=== PATIENT | male | born 1940 | race Caucasian/White ===

== ENCOUNTER → 2017-05-11 12:48 | Outpatient (CLI) | payer MEDICARE, OTHER, SELFPAY ==
[2016-10-05 13:30] VITALS: BMI 26.1
--- NOTE | 2017-05-12 14:46 | PFTCOMP ---
COMPLETE PULMONARY FUNCTION TEST INTERPRETATION Brief HPI: Patient is a 77 year old male, currently under the care of Dr. Loera, who presents to [facility] for complete pulmonary function tests secondary to diagnosis of cough. Respiratory therapist reports good effort and reproducible results. Interpretation: Forced expiration spirometry shows a moderate large airways obstructive ventilatory defect with an FEV1 of 68 % predicted. There is a significant bronchodilator response in FVC by ATS criteria. Spirograms are of good quality and plateau slowly, indicating slowly emptying areas of the lungs. The respiratory flow volume loop shows decreased expiratory flow rates at all lung volumes consistent with airway obstruction. Lung volumes by body plethysmography show an elevated total lung capacity at 7.34 L, 124 % predicted. FRC and RV are elevated out of proportion. Lung volume measurements are consistent with hyperinflation and air-trapping. Diffusion capacity by carbon monoxide is normal at 73 % predicted. The airway resistance is elevated. No previous pulmonary function tests were available for review. Impression: Partially reversible moderate large airways obstructive ventilatory defect resulting in air trapping with hyperinflation.
== END ==
PROVIDERS: Family Provider Family Medicine Geriatric Medicine; PCP Family Medicine Geriatric Medicine; Visit Provider Internal Medicine Critical Care Medicine
DX: R05 Cough (principal)
CPT/HCPCS: 94060; 94726; 94729

== ENCOUNTER → 2017-06-09 08:34 | Outpatient (CLI) | payer MEDICARE, OTHER, SELFPAY ==
[2016-10-05 13:30] VITALS: BMI 26.1
[2017-06-09 10:24] LABS: AST(SGOT) 18 U/L (15-37); Alanine Aminotransfer ALT/SGPT 16 U/L (16-61); Albumin, Serum 3.6 g/dL (3.2-5.0); Alkaline Phosphatase 62 U/L (45-117); Bilirubin, Direct 0.31 mg/dL (0.00-0.30); Cholesterol 84 mg/dL (200); Globulin 3.6 g/dL (2.2-4.2); High Density Lipoprotein 47 mg/dL; Protein, Total 7.2 g/dL (6.4-8.2); Triglycerides 88 mg/dL; Very Low Density Lipoprotein 18 mg/dL (5-40)
== END ==
PROVIDERS: Family Provider Family Medicine Geriatric Medicine; PCP Family Medicine Geriatric Medicine; Visit Provider Internal Medicine Cardiovascular Disease
DX: E78.5 Hyperlipidemia, unspecified (principal); Z79.899 Other long term (current) drug therapy
CPT/HCPCS: 36415; 80061; 80076

== ENCOUNTER → 2017-06-30 12:33 | Outpatient (CLI) | payer MEDICARE, OTHER, SELFPAY ==
[2016-10-05 13:30] VITALS: BMI 26.1
--- NOTE | 2017-06-30 12:34 | STEWCON_ITS ---
Reason For Study: CAD Stress Results Protocol: Modified José Miguel Protocol Maximum Predicted HR: 141 bpm Target HR: 120 bpm% Maximum Pred icted HR: 86 % Heart Stage Duration Rate BPCom ment (mm:ss) (bpm) Definity 4 ML Diluted Given; No Chest Baseline 62 134/70 Pain Modified José Miguel Protocol Stage 0 3:00 10 0 142/76No Chest Pain Modified José Miguel Protocol Stage 1/2 3:00 11 6 156/72No Chest Pain Modified José Miguel Protocol Stage 1 1:00 12 1 / No Chest Pain Recovery 68 122/66 No Chest Pain Stress Duration: 7:00 mm:ss Maximum Stress HR: 121 bpmM ETS: 4 Baseline Echocardiogram Findings The estimated ejection fraction is 65 %. Stress Echo Wall motion Data Resting WMIntermediate WMStress WM Resting Wall Motion Wall Motion Stress No regional wall motion No regional wall motion abnormalities noted. abnormalities noted. EKG Data Normal intervals are noted. Interpretation Summary The estimated ejection fraction is 65 %. Normal adequate modified José Miguel treadmill echocardiogram. Negative for ischemia by EKG and echocardiographic criteria. No anginal symptoms noted. Rare PACs noted. Appropriate blood pressure response to exercise. Average exercise capacity for age. Test terminated due to leg discomfort. Final LVEF is 75%. Decreased sensitivity due to poor echo windows and requiring Definity contrast agent. Ordering Physician: Temo Cerna Referring Physician: Temo Cerna Performed By: Christie Ybarra RDCS
== END ==
PROVIDERS: Family Provider Family Medicine Geriatric Medicine; PCP Family Medicine Geriatric Medicine; Visit Provider Internal Medicine Cardiovascular Disease
DX: I25.10 Atherosclerotic heart disease of native coronary artery without angina pectoris (principal); Z95.5 Presence of coronary angioplasty implant and graft
CPT/HCPCS: 93017; 93350; Q9957; A4216; C8928

== ENCOUNTER → 2017-08-02 09:05 | Outpatient (CLI) | payer MEDICARE, OTHER, SELFPAY ==
[2016-10-05 13:30] VITALS: BMI 26.1
[2017-08-02 14:37] LABS: Absolute Lymphocyte Count 1.13 X10^3/ul (0.83-4.51); Absolute Neutrophil Count 3.3 X10^3/uL (2.0-7.7); Basophil# 0.03 X10^3/uL; Basophil% 0.6 % (0-1); Eosinophil# 0.18 X10^3/uL; Eosinophils% 3.4 % (0-5); Hematocrit 39.7 % (40-54); Hemoglobin 13.1 g/dl (13.0-16.5); Lymphocyte # 1.13 X10^3/ul (4.0); Lymphocyte % 21.2 % (19-41); Mean Corpuscular Hgb 30.9 pg (27.0-32.0); Mean Corpuscular Volume 93.6 fL (80-94); Mean Platelet Vol. 9.4 fl (6.2-12.0); Monocyte# 0.65 X10^3/uL; Monocyte% 12.2 % (0-10); Neutrophil # 3.33 X10^3/uL (2.7-7.7); Neutrophil % 62.2 % (47-70); Platelet Count 264 K/mm3 (150-450); RBC Distribution Width CV 13.8 % (11.6-14.6); RBC Distribution Width SD 45.3 fl (35.1-43.9); Red Blood Count 4.24 M/mm3 (4.6-6.2); White Blood Count 5.3 K/mm3 (4.4-11.0)
[2017-08-02 14:39] LABS: POSITIVE COUNT NO; POSITIVE DIFFERENTIAL NO; POSITIVE MORPHOLOGY NO
[2017-08-02 14:51] LABS: Vitamin D,25 Hydroxy 30.5 ng/mL (29.95-100.01)
[2017-08-02 14:54] LABS: AST(SGOT) 16 U/L (15-37); Alanine Aminotransfer ALT/SGPT 22 U/L (16-61); Albumin, Serum 3.5 g/dL (3.2-5.0); Alkaline Phosphatase 57 U/L (45-117); Anion Gap 7 (5-15); BUN 14 mg/dL (7-18); BUN/Creat Ratio 15.2 RATIO (10-20); Calcium,Total 8.2 mg/dL (8.5-10.1); Chloride 107 mmol/L (98-107); Creatinine, Serum 0.92 mg/dL (0.70-1.30); EST Glomerular Filtration Rate 84 mL/min (>60); Est Glom Filt Rate - Afr Amer 102 mL/min (>60); Globulin 3.4 g/dL (2.2-4.2); Glucose 103 mg/dL (74-106); Potassium 3.9 mmol/L (3.5-5.1); Protein, Total 6.9 g/dL (6.4-8.2); Sodium Level 140 mmol/L (136-145); Thyroid Stim Hormone (TSH) 0.99 uIU/mL (0.358-3.74)
== END ==
PROVIDERS: Family Provider Family Medicine Geriatric Medicine; PCP Family Medicine Geriatric Medicine; Visit Provider Family Medicine Geriatric Medicine
DX: I10 Essential (primary) hypertension (principal); E55.9 Vitamin D deficiency, unspecified
CPT/HCPCS: 36415; 80053; 82306; 84443; 85025

== ENCOUNTER → 2017-09-29 06:53 | Outpatient (CLI) | payer MEDICARE, OTHER, SELFPAY ==
[2016-10-05 13:30] VITALS: BMI 26.1
[2017-09-29 08:04] LABS: AST(SGOT) 13 U/L (15-37); Alanine Aminotransfer ALT/SGPT 14 U/L (16-61); Albumin, Serum 3.6 g/dL (3.2-5.0); Alkaline Phosphatase 58 U/L (45-117); Bilirubin, Direct 0.27 mg/dL (0.00-0.30); Cholesterol 90 mg/dL (200); Globulin 3.5 g/dL (2.2-4.2); High Density Lipoprotein 46 mg/dL; Protein, Total 7.1 g/dL (6.4-8.2); Triglycerides 84 mg/dL; Very Low Density Lipoprotein 17 mg/dL (5-40)
== END ==
PROVIDERS: Nurse Practitioner Family; Family Provider Family Medicine Geriatric Medicine; PCP Family Medicine Geriatric Medicine; Visit Provider Internal Medicine Cardiovascular Disease
DX: E78.5 Hyperlipidemia, unspecified (principal); Z79.899 Other long term (current) drug therapy
CPT/HCPCS: 36415; 80061; 80076

== ENCOUNTER → 2018-02-04 09:01 | Outpatient (CLI) | payer MEDICARE, OTHER, SELFPAY ==
[2016-10-05 13:30] VITALS: BMI 26.1
[2018-02-04 12:06] LABS: Absolute Lymphocyte Count 1.26 X10^3/ul (0.83-4.51); Absolute Neutrophil Count 3.1 X10^3/uL (2.0-7.7); Basophil# 0.03 X10^3/uL; Basophil% 0.6 % (0-1); Eosinophil# 0.33 X10^3/uL; Eosinophils% 6.1 % (0-5); Hematocrit 38.9 % (40-54); Hemoglobin 12.5 g/dl (13.0-16.5); Lymphocyte # 1.26 X10^3/ul (4.0); Lymphocyte % 23.4 % (19-41); Mean Corp Hgb Conc 32.1 g/gl (32-36); Mean Corpuscular Hgb 30.3 pg (27.0-32.0); Mean Corpuscular Volume 94.4 fL (80-94); Mean Platelet Vol. 9.4 fl (6.2-12.0); Monocyte# 0.67 X10^3/uL; Monocyte% 12.4 % (0-10); Neutrophil # 3.09 X10^3/uL (2.7-7.7); Neutrophil % 57.3 % (47-70); Platelet Count 269 K/mm3 (150-450); RBC Distribution Width CV 13.7 % (11.6-14.6); RBC Distribution Width SD 45.4 fl (35.1-43.9); Red Blood Count 4.12 M/mm3 (4.6-6.2); White Blood Count 5.4 K/mm3 (4.4-11.0)
[2018-02-04 12:16] LABS: POSITIVE COUNT NO; POSITIVE DIFFERENTIAL NO; POSITIVE MORPHOLOGY NO
[2018-02-04 12:21] LABS: Vitamin D,25 Hydroxy 26.9 ng/mL (29.95-100.01)
[2018-02-04 12:22] LABS: ALB/GLOB Ratio 0.9 RATIO (0.9-2.4); AST(SGOT) 15 U/L (15-37); Alanine Aminotransfer ALT/SGPT 19 U/L (16-61); Albumin, Serum 3.4 g/dL (3.2-5.0); Alkaline Phosphatase 60 U/L (45-117); Anion Gap 9 (5-15); BUN 18 mg/dL (7-18); BUN/Creat Ratio 18.5 RATIO (10-20); Calcium,Total 8.2 mg/dL (8.5-10.1); Chloride 107 mmol/L (98-107); Creatinine, Serum 0.97 mg/dL (0.70-1.30); EST Glomerular Filtration Rate 79 mL/min (>60); Est Glom Filt Rate - Afr Amer 96 mL/min (>60); Globulin 3.7 g/dL (2.2-4.2); Glucose 90 mg/dL (74-106); Potassium 3.9 mmol/L (3.5-5.1); Protein, Total 7.1 g/dL (6.4-8.2); Sodium Level 143 mmol/L (136-145); Thyroid Stim Hormone (TSH) 1.35 uIU/mL (0.358-3.74)
== END ==
PROVIDERS: Family Provider Family Medicine Geriatric Medicine; PCP Family Medicine Geriatric Medicine; Visit Provider Family Medicine Geriatric Medicine
DX: E23.6 Other disorders of pituitary gland (principal); R53.83 Other fatigue; E55.9 Vitamin D deficiency, unspecified
CPT/HCPCS: 36415; 80053; 82306; 84403; 84443; 85025

== ENCOUNTER → 2018-07-22 09:53 | Outpatient (CLI) | payer MEDICARE, OTHER, SELFPAY ==
[2016-10-05 13:30] VITALS: BMI 26.1
[2018-07-18 13:11] VITALS: BMI 25.7
--- NOTE | 2018-07-22 09:56 | US_ITS ---
STUDY: ABDOMINAL ULTRASOUND - RIGHT UPPER QUADRANT REASON FOR VISIT: Male, 78 years old. Abdominal pain TECHNIQUE: Ultrasound evaluation of the right upper quadrant was performed with real-time and static pak-scale imaging. TECHNICAL QUALITY: Adequate. COMPARISON: None. FINDINGS: Liver: The liver measures 15.8 cm. There is normal echogenicity of the liver. The bile ducts are within normal limits. There is hepatic color flow. The direction of portal flow is hepatopetal. There is no demonstrated mass lesion. Gallbladder: Normal distended gallbladder. The gallbladder wall measures 3 mm. There is a negative sonographic Schaefer's sign. There is no pericholecystic fluid. There are no gallstones. Common Bile Duct (C.B.D.): The common bile duct measures 4 mm. Pancreas: There is nonvisualization of the pancreas. Right Kidney: Normal size of the right kidney. The right kidney measures 10.5 cm. Normal renal cortex. There is a 1.6 cm simple cyst in the upper pole of the right kidney. There is no right hydronephrosis. US/Gallbladder IMPRESSION: Simple cyst in the right kidney. Otherwise, unremarkable abdominal ultrasound. Electronically Signed: Matthew Jimenez, at 22:22 EDT Tel , Service support ,
== END ==
PROVIDERS: Family Provider Family Medicine Geriatric Medicine; PCP Family Medicine Geriatric Medicine; Referring Provider Internal Medicine Cardiovascular Disease; Visit Provider Internal Medicine Cardiovascular Disease
DX: R10.13 Epigastric pain (principal); R14.2 Eructation
CPT/HCPCS: 76705

== ENCOUNTER → 2018-08-04 09:50 | Outpatient (CLI) | payer MEDICARE, OTHER, SELFPAY ==
[2016-10-05 13:30] VITALS: BMI 26.1
[2018-07-18 13:11] VITALS: BMI 25.7
--- NOTE | 2018-08-04 09:51 | STEWCON_ITS ---
Reason For Study: CAD/ASHD Stress Results Protocol: José Miguel Protocol WITH DEFINITY Maximum Predicted HR: 140 bpm Target HR: 119 bpm % Maximum Predicted HR: 86 % DurationHeart Rate Stage (mm:ss) (bpm) BP Comment BASELINE 65 140/801.5 CC DEFINITY STAGE 1 3:00 121 160/701CC DEFINITY, No chest pain, increased SOB and fatigue RECOVERY 70 130/70 Stress Duration: 3:00 mm:ss Maximum Stress HR: 121 bpm Baseline Echocardiogram Findings The estimated ejection fraction is 65 %. Stress Echo Wall motion Data Resting WM Intermediate WM Stress WM Resting Wall Motion Wall Motion Stress No regional wall motion No regional wall motion abnormalities noted. abnormalities noted. EKG Data The baseline ECG displays normal sinus rhythm. The patient exercised according to the regular José Miguel protocol for a total duration of 3:00. The maximum heart rate attained was 126 beats per minute. This was 90% of maximum predicted heart rate. The patient exercised into stage 2 of the José Miguel protocol. During stress, there were no ST or T wave changes noted to suggest ischemia. No clinical angina was noted. Interpretation Summary The estimated ejection fraction is 65 %. Normal, adequate, treadmill echocardiogram. Negative for ischemia by EKG and echocardiographic criteria. No anginal symptoms noted. Rare PACs noted. Appropriate blood pressure response to exercise. Final LVEF is 75%. Below average exercise capacity for age. Test terminated due to attainment target heart rate, fatigue and dyspnea. Patient had no evidence of anterior wall ischemia by echocardiogram. Decreased sensitivity due to poor echo windows requiring Definity agent. Final LVEF is 75%. No complications. The study was technically difficult. Contrast injection was performed. Ordering Physician: Temo Cerna MD Referring Physician: Temo Cerna Performed By: Leatha Roberts, RDCS, RVT
== END ==
PROVIDERS: Family Provider Family Medicine Geriatric Medicine; PCP Family Medicine Geriatric Medicine; Referring Provider Internal Medicine Cardiovascular Disease; Visit Provider Internal Medicine Cardiovascular Disease
DX: I25.10 Atherosclerotic heart disease of native coronary artery without angina pectoris (principal); I21.4 Non-ST elevation (NSTEMI) myocardial infarction; E78.5 Hyperlipidemia, unspecified; R07.9 Chest pain, unspecified
CPT/HCPCS: 93017; 93350; Q9957; A4216; C8928

== ENCOUNTER → 2018-08-17 08:36 | Outpatient (CLI) | payer MEDICARE, OTHER, SELFPAY ==
[2016-10-05 13:30] VITALS: BMI 26.1
[2018-07-18 13:11] VITALS: BMI 25.7
[2018-08-17 09:16] LABS: Basophil# 0.02 X10^3/uL; Basophil% 0.4 % (0-1); Eosinophil# 0.37 X10^3/uL; Eosinophils% 7.1 % (0-5); Hematocrit 37.6 % (40-54); Hemoglobin 12.4 g/dl (13.0-16.5); Lymphocyte % 24.9 % (19-41); Mean Corpuscular Hgb 30.2 pg (27.0-32.0); Mean Corpuscular Volume 91.5 fL (80-94); Mean Platelet Vol. 8.8 fl (6.2-12.0); Monocyte# 0.53 X10^3/uL; Monocyte% 10.1 % (0-10); Neutrophil % 57.3 % (47-70); Platelet Count 270 K/mm3 (150-450); RBC Distribution Width CV 13.5 % (11.6-14.6); RBC Distribution Width SD 44.7 fl (35.1-43.9); Red Blood Count 4.11 M/mm3 (4.6-6.2); White Blood Count 5.2 K/mm3 (4.4-11.0)
[2018-08-17 09:19] LABS: POSITIVE COUNT NO; POSITIVE DIFFERENTIAL NO; POSITIVE MORPHOLOGY NO
[2018-08-17 09:46] LABS: Vitamin D,25 Hydroxy 29.3 ng/mL (29.95-100.01)
[2018-08-17 09:47] LABS: ALB/GLOB Ratio 0.9 RATIO (0.9-2.4); AST(SGOT) 15 U/L (15-37); Alanine Aminotransfer ALT/SGPT 15 U/L (16-61); Albumin, Serum 3.3 g/dL (3.2-5.0); Alkaline Phosphatase 64 U/L (45-117); Anion Gap 6 (5-15); BUN 16 mg/dL (7-18); Calcium,Total 8.3 mg/dL (8.5-10.1); Chloride 108 mmol/L (98-107); Creatinine, Serum 1.07 mg/dL (0.70-1.30); EST Glomerular Filtration Rate 71 mL/min (>60); Est Glom Filt Rate - Afr Amer 86 mL/min (>60); Globulin 3.6 g/dL (2.2-4.2); Glucose 119 mg/dL (74-106); Potassium 3.8 mmol/L (3.5-5.1); Protein, Total 6.9 g/dL (6.4-8.2); Sodium Level 143 mmol/L (136-145); Thyroid Stim Hormone (TSH) 1.16 uIU/mL (0.358-3.74)
== END ==
PROVIDERS: Family Provider Family Medicine Geriatric Medicine; PCP Family Medicine Geriatric Medicine; Referring Provider Family Medicine Geriatric Medicine; Visit Provider Family Medicine Geriatric Medicine
DX: E55.9 Vitamin D deficiency, unspecified (principal); I10 Essential (primary) hypertension
CPT/HCPCS: 36415; 80053; 82306; 84443; 85025

== ENCOUNTER → 2019-02-14 11:07 | Outpatient (CLI) | payer MEDICARE, OTHER, SELFPAY ==
[2016-10-05 13:30] VITALS: BMI 26.1
[2018-11-03 08:51] VITALS: BMI 25.7
[2019-02-14 12:25] LABS: Absolute Lymphocyte Count 1.06 X10^3/uL (0.83-4.51); Absolute Neutrophil Count 3.2 X10^3/uL (2.0-7.7); Basophil# 0.05 X10^3/uL; Basophil% 0.9 % (0-1); Eosinophil# 0.26 X10^3/uL; Eosinophils% 4.8 % (0-5); Hematocrit 39.1 % (40-54); Hemoglobin 12.4 g/dL (13.0-16.5); Lymphocyte # 1.06 X10^3/ul (4.0); Lymphocyte % 19.7 % (19-41); Mean Corp Hgb Conc 31.7 g/dL (32-36); Mean Corpuscular Hgb 29.1 pg (27.0-32.0); Mean Corpuscular Volume 91.8 fL (80-94); Mean Platelet Vol. 9.1 fl (6.2-12.0); Monocyte% 14.8 % (0-10); NRBC Flagged by Analyzer 0 % (0-5); Neutrophil # 3.21 X10^3/uL (2.7-7.7); Neutrophil % 59.6 % (47-70); Platelet Count 302 K/mm3 (150-450); RBC Distribution Width SD 47.5 fl (35.1-43.9); Red Blood Count 4.26 M/mm3 (4.6-6.2); White Blood Count 5.4 K/mm3 (4.4-11.0)
[2019-02-14 12:48] LABS: Vitamin D,25 Hydroxy 28.2 ng/mL (29.95-100.01)
[2019-02-14 13:14] LABS: AST(SGOT) 18 U/L (15-37); Alanine Aminotransfer ALT/SGPT 19 U/L (16-61); Albumin, Serum 3.5 g/dL (3.2-5.0); Alkaline Phosphatase 57 U/L (45-117); Anion Gap 7 (5-15); BUN 15 mg/dL (7-18); BUN/Creat Ratio 14.9 RATIO (10-20); Calcium,Total 8.8 mg/dL (8.5-10.1); Chloride 105 mmol/L (98-107); Creatinine, Serum 1.01 mg/dL (0.70-1.30); EST Glomerular Filtration Rate 75 mL/min (>60); Est Glom Filt Rate - Afr Amer 91 mL/min (>60); Globulin 3.6 g/dL (2.2-4.2); Glucose 95 mg/dL (74-106); Potassium 3.8 mmol/L (3.5-5.1); Protein, Total 7.1 g/dL (6.4-8.2); Sodium Level 139 mmol/L (136-145); Thyroid Stim Hormone (TSH) 1.24 uIU/mL (0.358-3.74)
== END ==
PROVIDERS: Family Provider Family Medicine Geriatric Medicine; PCP Family Medicine Geriatric Medicine; Visit Provider Family Medicine Geriatric Medicine
DX: I10 Essential (primary) hypertension (principal); E55.9 Vitamin D deficiency, unspecified
CPT/HCPCS: 36415; 80053; 82306; 84443; 85025

== ENCOUNTER → 2019-05-23 14:17 | Outpatient (CLI) | payer MEDICARE, OTHER, SELFPAY ==
[2016-10-05 13:30] VITALS: BMI 26.1
[2019-03-02 09:16] VITALS: BMI 25.8
[2019-05-23 17:41] LABS: Hematocrit 41.2 % (40-54); Hemoglobin 13.4 g/dL (13.0-16.5); Mean Corp Hgb Conc 32.5 g/dL (32-36); Mean Corpuscular Hgb 29.3 pg (27.0-32.0); Mean Corpuscular Volume 90.2 fL (80-94); Mean Platelet Vol. 9.1 fl (6.2-12.0); Platelet Count 252 K/mm3 (150-450); RBC Distribution Width CV 14.3 % (11.6-14.6); RBC Distribution Width SD 46.9 fl (35.1-43.9); Red Blood Count 4.57 M/mm3 (4.6-6.2); White Blood Count 6.6 K/mm3 (4.4-11.0)
[2019-05-23 17:49] LABS: Erythrocyte Sedimentation Rate 18 mm/hr (0-20)
[2019-05-23 17:58] LABS: CRP < 2.90 mg/L (0.0-3.0)
== END ==
PROVIDERS: PCP Family Medicine Geriatric Medicine; Referring Provider Internal Medicine Gastroenterology; Visit Provider Internal Medicine Gastroenterology
DX: K51.90 Ulcerative colitis, unspecified, without complications (principal)
CPT/HCPCS: 36415; 85027; 85652; 86140

== ENCOUNTER → 2019-08-11 10:33 | Outpatient (CLI) | payer MEDICARE, OTHER, SELFPAY ==
[2016-10-05 13:30] VITALS: BMI 26.1
[2019-07-11 08:48] VITALS: BMI 25.8
--- NOTE | 2019-08-11 10:56 | RAD_ITS ---
STUDY: X-RAY - ABDOMEN/PELVIS REASON FOR EXAM: Male, 79 years old. DIARRHEA x1 WEEK TECHNIQUE: DIARRHEA x1 WEEK COMPARISON: None. FINDINGS: Normal visualized lung bases. There is an unremarkable bowel gas pattern. There is no demonstrated free abdominal air. The visualized liver, spleen and kidneys are grossly normal in size and morphology. Normal soft tissue structures. There are diffuse degenerative changes of the visualized lumbar spine. RAD/Abd Inc Decub and/or Erect IMPRESSION: Normal x-ray examination of the abdomen and pelvis. Electronically Signed: Nahed Jimenez, at 11:18 EDT Tel , Service support ,
[2019-08-11 12:30] LABS: Absolute Lymphocyte Count 1.31 X10^3/uL (0.83-4.51); Absolute Neutrophil Count 2.3 X10^3/uL (2.0-7.7); Basophil# 0.05 X10^3/uL; Basophil% 1.1 % (0-1); Eosinophil# 0.32 X10^3/uL; Hemoglobin 12.5 g/dL (13.0-16.5); Lymphocyte # 1.31 X10^3/ul (4.0); Lymphocyte % 28.6 % (19-41); Mean Corp Hgb Conc 32.1 g/dL (32-36); Mean Corpuscular Hgb 29.3 pg (27.0-32.0); Mean Corpuscular Volume 91.5 fL (80-94); Mean Platelet Vol. 9.1 fl (6.2-12.0); Monocyte% 13.1 % (0-10); NRBC Flagged by Analyzer 0 % (0-5); Neutrophil # 2.28 X10^3/uL (2.7-7.7); Neutrophil % 49.8 % (47-70); Platelet Count 302 K/mm3 (150-450); RBC Distribution Width CV 13.2 % (11.6-14.6); RBC Distribution Width SD 43.8 fl (35.1-43.9); Red Blood Count 4.26 M/mm3 (4.6-6.2); White Blood Count 4.6 K/mm3 (4.4-11.0)
[2019-08-11 12:40] LABS: Anion Gap 6 (5-15); BUN 14 mg/dL (7-18); BUN/Creat Ratio 13.1 RATIO (10-20); Calcium,Total 8.7 mg/dL (8.5-10.1); Chloride 108 mmol/L (98-107); Creatinine, Serum 1.07 mg/dL (0.70-1.30); EST Glomerular Filtration Rate 71 mL/min (>60); Est Glom Filt Rate - Afr Amer 85 mL/min (>60); Glucose 102 mg/dL (74-106); Potassium 3.8 mmol/L (3.5-5.1); Sodium Level 140 mmol/L (136-145)
== END ==
PROVIDERS: PCP Family Medicine Geriatric Medicine; Referring Provider Family Medicine Geriatric Medicine; Visit Provider Family Medicine Geriatric Medicine
DX: R10.9 Unspecified abdominal pain (principal)
CPT/HCPCS: 36415; 74019; 80048; 85025

== ENCOUNTER → 2019-08-17 09:56 | Outpatient (CLI) | payer MEDICARE, OTHER, SELFPAY ==
[2016-10-05 13:30] VITALS: BMI 26.1
[2019-07-11 08:48] VITALS: BMI 25.8
[2019-08-17 12:46] LABS: Absolute Lymphocyte Count 1.77 X10^3/uL (0.83-4.51); Absolute Neutrophil Count 7.8 X10^3/uL (2.0-7.7); Basophil# 0.04 X10^3/uL; Basophil% 0.4 % (0-1); Eosinophil# 0.04 X10^3/uL; Eosinophils% 0.4 % (0-5); Hematocrit 38.2 % (40-54); Hemoglobin 12.4 g/dL (13.0-16.5); Lymphocyte # 1.77 X10^3/ul (4.0); Lymphocyte % 16.1 % (19-41); Mean Corp Hgb Conc 32.5 g/dL (32-36); Mean Corpuscular Hgb 29.5 pg (27.0-32.0); Mean Corpuscular Volume 90.7 fL (80-94); Mean Platelet Vol. 9.2 fl (6.2-12.0); Monocyte# 1.17 X10^3/uL; Monocyte% 10.7 % (0-10); NRBC Flagged by Analyzer 0 % (0-5); Neutrophil # 7.79 X10^3/uL (2.7-7.7); Neutrophil % 70.9 % (47-70); Platelet Count 396 K/mm3 (150-450); RBC Distribution Width CV 13.2 % (11.6-14.6); Red Blood Count 4.21 M/mm3 (4.6-6.2)
[2019-08-17 13:00] LABS: Vitamin D,25 Hydroxy 27.6 ng/mL
[2019-08-17 13:11] LABS: ALB/GLOB Ratio 0.9 RATIO (0.9-2.4); AST(SGOT) 9 U/L (15-37); Alanine Aminotransfer ALT/SGPT 23 U/L (16-61); Albumin, Serum 3.4 g/dL (3.2-5.0); Alkaline Phosphatase 58 U/L (45-117); Anion Gap 9 (5-15); BUN 21 mg/dL (7-18); BUN/Creat Ratio 20.4 RATIO (10-20); Calcium,Total 8.8 mg/dL (8.5-10.1); Chloride 107 mmol/L (98-107); Creatinine, Serum 1.03 mg/dL (0.70-1.30); EST Glomerular Filtration Rate 74 mL/min (>60); Est Glom Filt Rate - Afr Amer 89 mL/min (>60); Globulin 3.8 g/dL (2.2-4.2); Glucose 120 mg/dL (74-106); Potassium 3.6 mmol/L (3.5-5.1); Protein, Total 7.2 g/dL (6.4-8.2); Sodium Level 138 mmol/L (136-145); Thyroid Stim Hormone (TSH) 0.89 uIU/mL (0.358-3.74)
== END ==
PROVIDERS: PCP Family Medicine Geriatric Medicine; Visit Provider Family Medicine Geriatric Medicine
DX: E55.9 Vitamin D deficiency, unspecified (principal); I10 Essential (primary) hypertension; E23.6 Other disorders of pituitary gland
CPT/HCPCS: 36415; 80053; 82306; 84403; 84443; 85025

== ENCOUNTER → 2020-02-12 06:03 | Outpatient (CLI) | payer MEDICARE, OTHER, SELFPAY ==
[2016-10-05 13:30] VITALS: BMI 26.1
[2020-01-26 11:39] VITALS: BMI 26.9
--- NOTE | 2020-02-12 09:27 | STRESSREP_ITS ---
Stress Test Report Pharmacologic myocardial perfusion stress test. 79-year-old man with a history of coronary artery disease nonobstructive. Stress protocol: Resting EKG demonstrates sinus rhythm with a rate of 67 bpm normal intervals are noted resting blood pressure is 128/62 mmHg. 0.4 mg of regadenoson was infused per usual protocol followed by rapid intravenous saline flush injection continuous EKG monitoring was performed. The maximum heart rate attained 106 bpm which was 76% of max impacted heart rate the maximum workload was 1 metabolic equivalent. At rest there were no ST or T wave changes noted to suggest abnormal flow reserve at peak infusion nonspecific ST-T wave changes were noted with no meet the criteria for ischemia. No clinical angina was noted. Myocardial perfusion protocol. 11.8 mCi of technetium 99m sestamibi was injected at rest. 0.4 mg of regadenoson was infused per usual protocol at peak infusion 33.1 mCi of techneti um 99m sestamibi was injected stress images were obtained stress and rest images were reconstructed and compared in the short axis vertical long horizontal long axis. Gated images were also obtained for Perfusion SPECT analysis: Review of the stress images demonstrate normal uptake of tracer noted in all areas of the myocardium the resting images similarly demonstrate normal uptake of tracer noted in all areas of the myocardium. No reversibility is noted suggest ischemia no previous infarct is noted. Gated SPECT analysis: The gated ejection fraction is 77%. Conclusion: Normal pharmacologic myocardial perfusion stress test. Preserved ejection fraction.
== END ==
PROVIDERS: PCP Family Medicine Geriatric Medicine; Referring Provider Internal Medicine Cardiovascular Disease; Visit Provider Internal Medicine Cardiovascular Disease
DX: I25.10 Atherosclerotic heart disease of native coronary artery without angina pectoris (principal); Z95.5 Presence of coronary angioplasty implant and graft
CPT/HCPCS: 78452; 93017; A9500; A4216; J2785

== ENCOUNTER → 2020-02-22 09:22 | Outpatient (CLI) | payer MEDICARE, OTHER, SELFPAY ==
[2016-10-05 13:30] VITALS: BMI 26.1
[2020-01-26 11:39] VITALS: BMI 26.9
[2020-02-22 12:44] LABS: Absolute Lymphocyte Count 1.22 X10^3/uL (0.83-4.51); Absolute Neutrophil Count 3.7 X10^3/uL (2.0-7.7); Basophil# 0.04 X10^3/uL; Basophil% 0.7 % (0-1); Eosinophil# 0.39 X10^3/uL; Eosinophils% 6.4 % (0-5); Hematocrit 38.8 % (40-54); Hemoglobin 12.5 g/dL (13.0-16.5); Lymphocyte # 1.22 X10^3/ul (4.0); Lymphocyte % 20.1 % (19-41); Mean Corp Hgb Conc 32.2 g/dL (32-36); Mean Corpuscular Hgb 29.6 pg (27.0-32.0); Mean Corpuscular Volume 91.9 fL (80-94); Mean Platelet Vol. 9.2 fl (6.2-12.0); Monocyte% 11.5 % (0-10); NRBC Flagged by Analyzer 0 % (0-5); Platelet Count 317 K/mm3 (150-450); RBC Distribution Width CV 14.1 % (11.6-14.6); RBC Distribution Width SD 47.3 fl (35.1-43.9); Red Blood Count 4.22 M/mm3 (4.6-6.2); White Blood Count 6.1 K/mm3 (4.4-11.0)
[2020-02-22 13:09] LABS: Vitamin D,25 Hydroxy 27.1 ng/mL
[2020-02-22 13:24] LABS: ALB/GLOB Ratio 0.9 RATIO (0.9-2.4); AST(SGOT) 16 U/L (15-37); Alanine Aminotransfer ALT/SGPT 19 U/L (16-61); Albumin, Serum 3.6 g/dL (3.2-5.0); Alkaline Phosphatase 65 U/L (45-117); Anion Gap 7 (5-15); BUN 16 mg/dL (7-18); BUN/Creat Ratio 14.4 RATIO (10-20); Calcium,Total 8.6 mg/dL (8.5-10.1); Chloride 107 mmol/L (98-107); Creatinine, Serum 1.11 mg/dL (0.70-1.30); EST Glomerular Filtration Rate 67 mL/min (>60); Est Glom Filt Rate - Afr Amer 82 mL/min (>60); Globulin 3.9 g/dL (2.2-4.2); Glucose 110 mg/dL (74-106); Potassium 3.7 mmol/L (3.5-5.1); Protein, Total 7.5 g/dL (6.4-8.2); Sodium Level 140 mmol/L (136-145)
== END ==
PROVIDERS: PCP Family Medicine Geriatric Medicine; Visit Provider Family Medicine Geriatric Medicine
DX: R53.83 Other fatigue (principal); E55.9 Vitamin D deficiency, unspecified; E23.6 Other disorders of pituitary gland
CPT/HCPCS: 36415; 80053; 82306; 84403; 84443; 85025

== ENCOUNTER 2020-04-12 16:20 | Outpatient (RCR) | payer MEDICARE, OTHER, SELFPAY ==
[2016-10-05 13:30] VITALS: BMI 26.1
[2020-01-26 11:39] VITALS: BMI 26.9
== END 2020-04-12 23:59 ==
LOC: IMMUN 16:20
PROVIDERS: PCP Family Medicine Geriatric Medicine; Visit Provider Family Medicine
DX: Z23 Encounter for immunization (principal)
CPT/HCPCS: 0011A; 0012A; 91301

== ENCOUNTER → 2020-04-16 11:15 | Outpatient (CLI) | payer MEDICARE, OTHER, SELFPAY ==
[2016-10-05 13:30] VITALS: BMI 26.1
[2020-01-26 11:39] VITALS: BMI 26.9
== END ==
PROVIDERS: PCP Family Medicine Geriatric Medicine; Referring Provider Urology; Visit Provider Urology
DX: R31.0 Gross hematuria (principal)
CPT/HCPCS: 87086; 87088

== ENCOUNTER → 2020-09-02 11:39 | Outpatient (CLI) | payer MEDICARE, OTHER, SELFPAY ==
[2016-10-05 13:30] VITALS: BMI 26.1
[2020-07-26 08:27] VITALS: BMI 27.3
[2020-09-02 11:59] LABS: Absolute Lymphocyte Count 1.52 X10^3/uL (0.83-4.51); Absolute Neutrophil Count 4.6 X10^3/uL (2.0-7.7); Basophil# 0.05 X10^3/uL; Basophil% 0.7 % (0-1); Eosinophil# 0.48 X10^3/uL; Eosinophils% 6.5 % (0-5); Hematocrit 36.4 % (40-54); Hemoglobin 11.6 g/dL (13.0-16.5); Lymphocyte # 1.52 X10^3/ul (0.83-4.51); Lymphocyte % 20.5 % (19-41); Mean Corp Hgb Conc 31.9 g/dL (32-36); Mean Corpuscular Hgb 28.3 pg (27.0-32.0); Mean Corpuscular Volume 88.8 fL (80-94); Mean Platelet Vol. 8.8 fl (6.2-12.0); Monocyte# 0.77 X10^3/uL; Monocyte% 10.4 % (0-10); NRBC Flagged by Analyzer 0 % (0-5); Neutrophil # 4.55 X10^3/uL (2.7-7.7); Neutrophil % 61.5 % (47-70); Platelet Count 324 K/mm3 (150-450); RBC Distribution Width CV 13.9 % (11.6-14.6); RBC Distribution Width SD 44.9 fl (35.1-43.9); White Blood Count 7.4 K/mm3 (4.4-11.0)
[2020-09-02 12:35] LABS: Vitamin D,25 Hydroxy 30.7 ng/mL
[2020-09-02 12:41] LABS: ALB/GLOB Ratio 0.9 RATIO (0.9-2.4); AST(SGOT) 19 U/L (15-37); Alanine Aminotransfer ALT/SGPT 15 U/L (16-61); Albumin, Serum 3.5 g/dL (3.2-5.0); Alkaline Phosphatase 71 U/L (45-117); Anion Gap 9 (5-15); BUN 15 mg/dL (7-18); BUN/Creat Ratio 13.2 RATIO (10-20); Calcium,Total 8.6 mg/dL (8.5-10.1); Chloride 103 mmol/L (98-107); Creatinine, Serum 1.14 mg/dL (0.70-1.30); EST Glomerular Filtration Rate 65 mL/min (>60); Est Glom Filt Rate - Afr Amer 79 mL/min (>60); Globulin 3.7 g/dL (2.2-4.2); Glucose 96 mg/dL (74-106); Potassium 4.1 mmol/L (3.5-5.1); Protein, Total 7.2 g/dL (6.4-8.2); Sodium Level 139 mmol/L (136-145); Thyroid Stim Hormone (TSH) 1.89 uIU/mL (0.358-3.74)
== END ==
PROVIDERS: PCP Family Medicine Geriatric Medicine; Visit Provider Family Medicine Geriatric Medicine
DX: I10 Essential (primary) hypertension (principal); E55.9 Vitamin D deficiency, unspecified
CPT/HCPCS: 36415; 80053; 82306; 84443; 85025

== ENCOUNTER 2020-09-16 00:34 | Emergency (ER) | payer MEDICARE, OTHER, SELFPAY ==
[2016-10-05 13:30] VITALS: BMI 26.1
[2020-07-26 08:27] VITALS: BMI 27.3
[2020-09-16 00:35] VITALS: BP 170/107; PULSE 68; RESP 14; TEMP 36.6; O2SAT 98; BMI 27.8
--- NOTE | 2020-09-16 00:44 | EKG12_ITS ---
Test Reason : CP Blood Pressure : / mmHG Vent. Rate : 071 BPM Atrial Rate : 071 BPM P-R Int : 182 ms QRS Dur : 090 ms QT Int : 414 ms P-R-T Axes : 075 037 065 degrees QTc Int : 449 ms Normal sinus rhythm Normal ECG Confirmed by HARJIT WOOD, VICENTE ([id number]), loan expeditor NEERAJ MEJIAS ([id number]) on 09/17/2020 9:11:02 AM Referred By: Confirmed By:VICENTE LOMBARDI MD
[2020-09-16 00:46] VITALS: O2SAT 97
--- NOTE | 2020-09-16 00:49 | RAD_ITS ---
EXAM: XR CHEST, 1 VIEW : 1940 CLINICAL INDICATION: chest pain TECHNIQUE: Frontal view of the chest. This report was created using [employer] report generation technology. COMPARISON: 10/21/16 FINDINGS: LUNGS AND PLEURAL SPACES: Unremarkable. No consolidation or edema. No pneumothorax. No effusion. HEART: Unremarkable. Cardiac silhouette not enlarged. MEDIASTINUM: Central airways and mediastinal contour are unremarkable. BONES/JOINTS: Unremarkable. SOFT TISSUES: Unremarkable. RAD/Chest 1 View (Portable) IMPRESSION: No radiographic evidence of acute cardiopulmonary disease. at 0124 Reported and signed by: Aki Badillo MD Electronically Signed: Aki Badillo MD at 1:23 EDT Tel , Service support ,
[2020-09-16 00:51] LABS: Absolute Lymphocyte Count 2.13 X10^3/uL (0.83-4.51); Absolute Neutrophil Count 2.9 X10^3/uL (2.0-7.7); Basophil# 0.07 X10^3/uL; Hematocrit 35.3 % (40-54); Hemoglobin 11.1 g/dL (13.0-16.5); Lymphocyte # 2.13 X10^3/ul (0.83-4.51); Lymphocyte % 31.8 % (19-41); Mean Corp Hgb Conc 31.4 g/dL (32-36); Mean Corpuscular Volume 88.9 fL (80-94); Mean Platelet Vol. 8.8 fl (6.2-12.0); Monocyte# 1.19 X10^3/uL; Monocyte% 17.8 % (0-10); NRBC Flagged by Analyzer 0 % (0-5); Neutrophil # 2.89 X10^3/uL (2.7-7.7); Neutrophil % 43.3 % (47-70); Platelet Count 319 K/mm3 (150-450); RBC Distribution Width CV 14.2 % (11.6-14.6); RBC Distribution Width SD 46.6 fl (35.1-43.9); Red Blood Count 3.97 M/mm3 (4.6-6.2); White Blood Count 6.7 K/mm3 (4.4-11.0)
[2020-09-16 00:59] VITALS: BP 147/85; PULSE 66; RESP 16; O2SAT 98
[2020-09-16] MEDS: Aspirin 81 MG TAB.CHEW 324 MG PO (00:59)
[2020-09-16 01:05] LABS: Anion Gap 8 (5-15); BUN 15 mg/dL (7-18); BUN/Creat Ratio 14.3 RATIO (10-20); Calcium,Total 8.7 mg/dL (8.5-10.1); Chloride 103 mmol/L (98-107); Creatinine, Serum 1.05 mg/dL (0.70-1.30); EST Glomerular Filtration Rate 72 mL/min (>60); Est Glom Filt Rate - Afr Amer 87 mL/min (>60); Estimated Creatinine Clearance 52.48 ml/min; Glucose 110 mg/dL (74-106); Potassium 3.6 mmol/L (3.5-5.1); Sodium Level 138 mmol/L (136-145); Troponin-I HS 6.6 pg/mL (3.0-78.5)
--- NOTE | 2020-09-16 01:08 | EDS_ITS ---
HPI History of Present Illness Chief Complaint: Chest Pain Detail of Chief Complaint: Chest pain Informant: patient and family Onset/Context/Timing Onset: Today (First episode at 1500 and second episode at 1800) Activity at onset: sudden and rest Timing: Continuous (Second episode resolved shortly after arrival) and Intermittent (First episode lasted 5 to 10 minutes) Quality: Positive for Burning and Dull Location: - (First episode subxiphoid second episode anterior right and left chest with radiation to the neck bilaterally) Current Severity: Gone Maximum Severity: Moderate Worsened By: Nothing Relieved By: Nothing Associated Symptoms: Positive for Diaphoresis and Dyspnea; Negative for Nausea, Vomiting, Cough, Fever, Lightheadedness, Acid Reflux and Palpitations Narrative Narrative: Patient is a 80-year-old male with history of coronary disease and placement of stent left anterior descending artery August 2016. He does have history of coagulopathy and on anticoagulant. He also has history of hypertension, hyperlipidemia, GERD and ulcerative colitis. He denies history of peptic ulcer disease. Patient had first episode of discomfort that was located in the subxiphoid region described as a dull burning sensation. Lasted 5 to 10 minutes at most. [place] warm/diaphoretic with no radiation or other symptoms. Patient ate at approximately 1700. While sitting he developed bilateral anterior chest burning sensation. Took antiacid with no relief. Patient states he attempted to go to sleep and was unsuccessful. He presents because the pain has been persistent. The pain is less intense than the pain he experienced in 2017 and the quality is different. He denies black or maroon-colored stool. Denies blood or mucus in his stool. He states he had diarrhea 1 to 2 weeks ago. He has no other complaints. Prior Similar Symptoms: No Recent Illness/Hospitalization: No CVD Risk Factors: Positive for Hypertension, Hypercholesterolemia and Smoking; Negative for Diabetes PE Risk Factors: Positive for Prior DVT or PE; Negative for Recent Travel/Surgery, Recent Immobilization and OCP + Smoking + >/=35 TAD Risk Factors: Positive for Hypertension; Negative for Marfan's Syndrome and Family History [facility] Medical History (Updated 09/16/20 @ 03:[address] Vito Fernandes MD) Atherosclerosis of coronary artery of [place] heart without angina pectoris Bronchitis Cough Crohn disease DDD (degenerative disc disease) Deep vein thrombosis of left lower extremity (2012) Essential (primary) hypertension GERD (gastroesophageal reflux disease) Glaucoma Hyperlipidemia Multiple allergies Non-ST elevation (NSTEMI) myocardial infarction (10/03/16) PND (post-nasal drip) Prostate enlargement PUD (peptic ulcer disease) Skin cancer Stomach ulcer Unstable angina no medical history Home Medications nitroglycerin 0.4 mg sublingual tablet 0.4 mg SUBLINGUAL Q5-15M PRN 04/06/17 [History Last Taken Unknown] apixaban 5 mg tablet 5 mg PO BID tab 12/16/17 [History Last Taken Unknown] atorvastatin 20 mg tablet 20 mg PO QHS 11/03/18 [History Last Taken Unknown] aspirin 81 mg tablet,delayed release 81 mg PO .COMPLEX 07/11/19 [History Last Taken Unknown] balsalazide 750 mg capsule 750 mg PO .COMPLEX cap 07/11/19 [History Last Taken Unknown] metoprolol tartrate 25 mg tablet 12.5 mg PO BID #90 tab 01/24/20 [Rx Last Taken Unknown] pantoprazole 40 mg tablet,delayed release 40 mg PO DAILY tab 01/26/20 [History Last Taken Unknown] amlodipine 10 mg tablet 5 mg PO DAILY #90 tab 07/26/20 [Rx Last Taken Unknown] Allergy/AdvReac Type Severity Reaction Status Date / Time ragweed pollen AdvReac Intermediate Nasal Verified 09/16/20 00:35 congestion Family History Father Heart disease Mother CVA (cerebral vascular accident) Surgical History H/O colonoscopy History of coronary artery stent placement (10/05/16) Previous back surgery Social History (Updated 09/16/20 @ 01:[address] Vito Fernandes MD) household members: spouse Smoking Status: Former smoker second hand exposure: No alcohol intake: never substance use type: does not use ROS ROS ED Constitutional Constitutional ED: Denies chills, fever(s), subjective, sweats or weight loss Eyes Eyes: Denies blurry vision or change in vision ENT ENT ED: Denies ear pain or rhinorrhea Cardiovascular Cardiovascular: Reports as per HPI and chest pain; Denies orthopnea, palpitations, paroxysmal nocturnal dyspnea or racing heartbeat Respiratory/Chest Respiratory/Chest: Reports other Details: Patient states he sleeps with 2 pillows because of reflux. ; Denies cough, dyspnea, dyspnea on exertion, orthopnea, paroxysmal nocturnal dyspnea or sputum Gastrointestinal Gastrointestinal: Reports abdominal pain; Denies constipation, diarrhea, melena, nausea or vomiting Genitourinary Genitourinary ED: Denies dysuria, hematuria or urinary frequency Musculoskeletal Musculoskeletal: Denies arthralgias, back pain or myalgias Integumentary Denies rash Neurologic Neurologic: Denies headache(s), paresthesias or weakness Endocrine Endocrinology: Denies polydipsia, polyphagia or polyuria Hematologic/Lymphatic Hematologic/Lymphatic: Reports easy bruising; Denies easy bleeding EXAM Physical Exam Const Vital Signs: 09/16/20 00:35 09/16/20 00:44 09/16/20 00:46 Temperature 97.9 F Temperature Source Oral Pulse Rate 68 Respiratory Rate 14 Respiratory Effort Normal Respiratory Pattern Normal Blood Pressure 170/107 H Blood Pressure Mean 128 Pulse Ox 98 97 Oxygen Delivery Method Room Air Room Air Oxygen Flow Rate (L/min) 2 09/16/20 00:59 09/16/20 01:47 09/16/20 03:03 Temperature Temperature Source Pulse Rate 66 65 58 L Respiratory Rate 16 15 14 Respiratory Effort Respiratory Pattern Blood Pressure 147/85 H 144/71 H 144/71 H Blood Pressure Mean 105 95 95 Pulse Ox 98 95 96 Oxygen Delivery Method Room Air Room Air Room Air Oxygen Flow Rate (L/min) Positive well nourished and well developed General Appearance ED: well developed and NAD HEENT Reports moist mucous membranes HEENT Narrative: Face is symmetric. Nares is patent. Ears are normal. normocephalic and atraumatic Eyes PERRL and EOMs intact bilaterally General Eye ED: Negative for pale conjunctiva or scleral icterus Neck no lymphadenopathy, supple and no JVD Neck Narrative: Trachea is midline. Chest Wall palpation of chest normal Resp normal respiratory effort Effort and Inspection: respiratory distress Cardio regular rate, regular rhythm, S1 normal heart sound, S2 normal heart sound and no murmurs GI normal to inspection, nondistended, normoactive bowel sounds, soft to palpation and non-tender; Negative for hepatosplenomegaly Palpation: other Other Details: Negative Schaefer sign ; Negative for splenomegaly Back/Spine no CVA tenderness and no thoracic nor lumbar tenderness Extremity normal to inspection Extremity Narrative: Palpable radial pulses. Unable to appreciate lower extremity due to pitting edema of 4 to 6 mm General Extremety ED: Yes edema; Negative for tenderness General Extremity: edema Neuro oriented x3, CN's II-XII intact bilaterally and no sensory deficits noted Neuro Narrative: Patient's gait is abnormal due to significant kyphosis Sensorium / Orientation: awake and alert Motor Exam: strength 5/5 throughout Psych mental status grossly normal Skin no rashes or lesions noted Heart Score History: Moderately Suspicious Age: >/= 65 years Risk Factors: >/= 3 Risk Factors or History of CAD Score: 5 MDM MDM MDM Narrative Medical decision making narrative: Patient presented with what he thought was heartburn. When the EKG was performed patient was pain-free. This may represent coronary disease versus noncardiac and need to evaluate for biliary or GI. The 2-hour troponin is 5.7 with a delta of less than 7. Since the high- sensitivity troponin is less than 8 and delta is less than 7 plan is to discharge to home and follow-up with Dr. Tyson Miller who is his form maker plaster. Lab Data Attestation: I reviewed the patient's lab results. Lab results narrative: Initial troponin is 6.6 and not less than 3 will obtain 2-hour delta. If total is less than 8 patient will be discharged to home. Patient was informed of his laboratory results and need for repeat troponin/blood work. Labs: Laboratory Results - last 24 hr 09/16/20 09/16/20 09/16/20 00:40 00:40 02:45 WBC 6.7 RBC 3.97 L Hgb 11.1 L Hct 35.3 L MCV 88.9 MCH 28.0 MCHC 31.4 L RDW Std Deviation 46.6 H RDW Coeff of Gaby 14.2 Plt Count 319 MPV 8.8 Immature Gran % (Auto) 0.100 Neut % (Auto) 43.3 L Lymph % (Auto) 31.8 [place] % (Auto) 17.8 H Eos % (Auto) 6.0 H Baso % (Auto) 1.0 Absolute Neuts (auto) 2.9 Absolute Lymphs (auto) 2.13 Nucleated RBC % 0 Sodium 138 Potassium 3.6 Chloride 103 Carbon Dioxide 27.0 Anion Gap 8 BUN 15 Creatinine 1.05 Estim Creat Clear Calc 52.48 Est GFR (MDRD) Af Amer 87 Est GFR (MDRD) Non-Af 72 BUN/Creatinine Ratio 14.3 Glucose 110 H Calcium 8.7 Troponin I High Sens 6.6 5.7 Radiography Chest X-Ray - ED: 1 View, Read by ED Physician, Lungs, Mediastinum, Bony Structures and Chronic Changes Diagnostic Testing: Radiology Impression Chest X-Ray 09/16/20 00:49 IMPRESSION: No radiographic evidence of acute cardiopulmonary disease. at 0124 Reported and signed by: Aki Badillo MD Electronically Signed: Aki Badillo MD at 1:23 EDT Tel , Service support , Discharge Plan Triage Chief Complaint: Chest Pain ED Provider: Vito Fernandes Dx/Rx/DC Orders Clinical Impression: Heartburn, Chest pain at rest Instructions: ED Pain, Acute, Uncertain Cause Prescriptions: No Action nitroglycerin [Nitrostat] 0.4 mg tablet, sublingual 0.4 mg SUBLINGUAL Q5-15M PRN (Reason: Chest Pain) RF: 0 Eliquis 5 mg tablet 5 mg PO BID RF: 0 atorvastatin 20 mg tablet 20 mg PO QHS RF: 0 aspirin 81 mg tablet,delayed release (DR/EC) 81 mg PO .COMPLEX RF: 0 pantoprazole 40 mg tablet,delayed release (DR/EC) 40 mg PO DAILY RF: 0 amlodipine 10 mg tablet 5 mg PO DAILY Qty: 90 RF: 3 balsalazide 750 mg capsule 750 mg PO .COMPLEX RF: 0 metoprolol tartrate 25 mg tablet 12.5 mg PO BID Qty: 90 RF: 3 Primary Care Provider: Marcelo Mccullough Chi Referrals: Marcelo Mccullough Chi, MD [Primary Care Provider] - 3-5 Days Disposition Disposition: Home, Self Care
[2020-09-16 01:47] VITALS: BP 144/71; PULSE 65; RESP 15; O2SAT 95
[2020-09-16 03:03] VITALS: BP 144/71; PULSE 58; RESP 14; O2SAT 96
[2020-09-16 03:05] LABS: Troponin-I HS 5.7 pg/mL (3.0-78.5)
[2020-09-16 03:35] VITALS: BP 147/68; PULSE 59; RESP 16; O2SAT 95
== END 2020-09-16 03:40 | disposition home or self-care (01) ==
PROVIDERS: Emergency Provider Emergency Medicine; PCP Family Medicine Geriatric Medicine
DX: R12 Heartburn (principal); R07.9 Chest pain, unspecified; I25.10 Atherosclerotic heart disease of native coronary artery without angina pectoris; Z95.5 Presence of coronary angioplasty implant and graft; I10 Essential (primary) hypertension; E78.5 Hyperlipidemia, unspecified; K21.9 Gastro-esophageal reflux disease without esophagitis; K50.90 Crohn's disease, unspecified, without complications; I25.2 Old myocardial infarction; H40.9 Unspecified glaucoma; N40.0 Benign prostatic hyperplasia without lower urinary tract symptoms; Z79.01 Long term (current) use of anticoagulants; Z79.82 Long term (current) use of aspirin; Z86.718 Personal history of other venous thrombosis and embolism; Z87.891 Personal history of nicotine dependence
CPT/HCPCS: 71045; 80048; 84484; 85025; 93005; 99285; A4216

== ENCOUNTER → 2020-11-13 08:34 | Outpatient (CLI) | payer MEDICARE, OTHER, SELFPAY ==
[2016-10-05 13:30] VITALS: BMI 26.1
--- NOTE | 2020-11-13 08:38 | RAD_ITS ---
STUDY: X-RAY - ESOPHAGUS (BARIUM SWALLOW) WITH FLUOROSCOPY REASON FOR EXAM: Male, 80 years old. DYSPHAGIA TECHNIQUE: 19 view(s) of the esophagus were obtained following swallowing of barium. FLUOROSCOPY TIME (if supplied): (42 seconds) minutes/seconds COMPARISON: None. FINDINGS: There is no demonstrated esophageal foreign body. There is no demonstrated stricture or mucosal abnormality. There is a small hiatal hernia of the fundus of the stomach. The patient ingested a 12 mm tablet of barium without any difficulty. There is atherosclerotic calcification of the aortic arch with tortuosity of the descending aorta. Normal visualized pulmonary parenchyma. Normal visualized osseous structures of the thorax. RAD/Esophagus Dual Contrast IMPRESSION: Small sliding hiatal hernia without gastroesophageal reflux. The patient ingested a 12 mm tablet of barium without any difficulty. Electronically Signed: Jayson Morales MD at 10:12 EDT , Service support ,
== END ==
PROVIDERS: PCP Family Medicine Geriatric Medicine; Referring Provider Internal Medicine Gastroenterology; Visit Provider Internal Medicine Gastroenterology
DX: R13.10 Dysphagia, unspecified (principal)
CPT/HCPCS: 74220; 74221

== ENCOUNTER → 2021-02-27 09:30 | Outpatient (CLI) | payer MEDICARE, OTHER, SELFPAY ==
[2016-10-05 13:30] VITALS: BMI 26.1
[2021-02-27 12:07] LABS: Absolute Lymphocyte Count 1.52 X10^3/uL (0.83-4.51); Absolute Neutrophil Count 3.4 X10^3/uL (2.0-7.7); Basophil# 0.04 X10^3/uL; Basophil% 0.6 % (0-1); Eosinophil# 0.41 X10^3/uL; Eosinophils% 6.6 % (0-5); Hematocrit 34.8 % (40-54); Hemoglobin 10.8 g/dL (13.0-16.5); Lymphocyte # 1.52 X10^3/ul (0.83-4.51); Lymphocyte % 24.5 % (19-41); Mean Corpuscular Hgb 26.9 pg (27.0-32.0); Mean Corpuscular Volume 86.8 fL (80-94); Mean Platelet Vol. 9.3 fl (6.2-12.0); Monocyte# 0.83 X10^3/uL; Monocyte% 13.4 % (0-10); NRBC Flagged by Analyzer 0 % (0-5); Neutrophil # 3.38 X10^3/uL (2.7-7.7); Neutrophil % 54.6 % (47-70); Platelet Count 279 K/mm3 (150-450); RBC Distribution Width SD 50.7 fl (35.1-43.9); Red Blood Count 4.01 M/mm3 (4.6-6.2); White Blood Count 6.2 K/mm3 (4.4-11.0)
[2021-02-27 12:25] LABS: Vitamin D,25 Hydroxy 29.6 ng/mL
[2021-02-27 12:33] LABS: ALB/GLOB Ratio 0.9 RATIO (0.9-2.4); AST(SGOT) 17 U/L (15-37); Alanine Aminotransfer ALT/SGPT 20 U/L (16-61); Albumin, Serum 3.4 g/dL (3.2-5.0); Alkaline Phosphatase 54 U/L (45-117); Anion Gap 5 (5-15); BUN 18 mg/dL (7-18); BUN/Creat Ratio 17.5 RATIO (10-20); Calcium,Total 8.6 mg/dL (8.5-10.1); Chloride 106 mmol/L (98-107); Creatinine, Serum 1.03 mg/dL (0.70-1.30); EST Glomerular Filtration Rate 73 mL/min (>60); Est Glom Filt Rate - Afr Amer 89 mL/min (>60); Globulin 3.9 g/dL (2.2-4.2); Glucose 89 mg/dL (74-106); Protein, Total 7.3 g/dL (6.4-8.2); Sodium Level 139 mmol/L (136-145); Thyroid Stim Hormone (TSH) 1.64 uIU/mL (0.358-3.74)
== END ==
PROVIDERS: PCP Family Medicine Geriatric Medicine; Visit Provider Family Medicine Geriatric Medicine
DX: I10 Essential (primary) hypertension (principal); E55.9 Vitamin D deficiency, unspecified; E23.6 Other disorders of pituitary gland
CPT/HCPCS: 36415; 80053; 82306; 84403; 84443; 85025

== ENCOUNTER → 2021-03-06 11:24 | Outpatient (CLI) | payer MEDICARE, OTHER, SELFPAY ==
[2016-10-05 13:30] VITALS: BMI 26.1
[2021-03-06 12:42] LABS: Absolute Neutrophil Count 2.7 X10^3/uL (2.0-7.7); Basophil# 0.06 X10^3/uL; Basophil% 1.2 % (0-1); Eosinophil# 0.35 X10^3/uL; Eosinophils% 6.8 % (0-5); Hematocrit 35.3 % (40-54); Lymphocyte % 23.3 % (19-41); Mean Corp Hgb Conc 31.2 g/dL (32-36); Mean Corpuscular Volume 86.5 fL (80-94); Mean Platelet Vol. 8.9 fl (6.2-12.0); Monocyte# 0.78 X10^3/uL; Monocyte% 15.2 % (0-10); NRBC Flagged by Analyzer 0 % (0-5); Neutrophil # 2.74 X10^3/uL (2.7-7.7); Neutrophil % 53.3 % (47-70); Platelet Count 285 K/mm3 (150-450); RBC Distribution Width CV 15.7 % (11.6-14.6); RBC Distribution Width SD 49.3 fl (35.1-43.9); RET-HE 30.1 pg (30-35); Red Blood Count 4.08 M/mm3 (4.6-6.2); White Blood Count 5.1 K/mm3 (4.4-11.0)
[2021-03-06 13:20] LABS: Vitamin B12 609 pg/mL (211-911)
[2021-03-06 13:56] LABS: Ferritin 16 ng/mL (26-388); Iron 73 ug/dL (65-175); Iron Binding Capacity,Total 387 ug/dL (250-450); PERCENT IRON SATURATION 18.9 % (15.0-55.0)
== END ==
PROVIDERS: PCP Family Medicine Geriatric Medicine; Visit Provider Family Medicine Geriatric Medicine
DX: D64.9 Anemia, unspecified (principal)
CPT/HCPCS: 36415; 82607; 82728; 82746; 83540; 83550; 85025; 85045

== ENCOUNTER → 2021-03-19 12:23 | Outpatient (CLI) | payer MEDICARE, OTHER, SELFPAY ==
[2016-10-05 13:30] VITALS: BMI 26.1
--- NOTE | 2021-03-19 12:26 | RAD_ITS ---
INDICATION: SOB EXAMINATION/TECHNIQUE: X-RAY - XR Chest 2 Views COMPARISON: 09/16/2020. FINDINGS: LINES/DEVICES: None. LUNGS: Peribronchial cuffing bilateral hilar prominence is seen that demonstrates no change in comparison to the prior study. No consolidation, edema or effusion. No pneumothorax. MEDIASTINUM AND CARDIOVASCULAR STRUCTURES: Cardiac silhouette not enlarged. Central airways and mediastinal contour are unremarkable. BONES AND SOFT TISSUES: Unremarkable. RAD/Chest PA and Lateral IMPRESSION: No radiographic evidence of acute cardiopulmonary disease. Electronically Signed: Jude Merrill MD at 16:03 EST Tel , Service support ,
== END ==
PROVIDERS: PCP Family Medicine Geriatric Medicine; Referring Provider Family Medicine Geriatric Medicine; Visit Provider Family Medicine Geriatric Medicine
DX: R06.02 Shortness of breath (principal)
CPT/HCPCS: 71046

== ENCOUNTER → 2021-03-20 08:59 | Outpatient (CLI) | payer MEDICARE, OTHER, SELFPAY ==
[2016-10-05 13:30] VITALS: BMI 26.1
== END ==
PROVIDERS: PCP Family Medicine Geriatric Medicine; Referring Provider Family Medicine Geriatric Medicine; Visit Provider Family Medicine Geriatric Medicine
DX: R68.83 Chills (without fever) (principal)
CPT/HCPCS: 87635; 87804; 87807; C9803; U0005; U0003

== ENCOUNTER → 2021-08-28 | Outpatient (CLI) | payer MEDICARE, OTHER, SELFPAY ==
[2016-10-05 13:30] VITALS: BMI 26.1
[2021-08-28 12:12] LABS: Absolute Lymphocyte Count 1.12 X10^3/uL (0.83-4.51); Absolute Neutrophil Count 2.6 X10^3/uL (2.0-7.7); Basophil# 0.04 X10^3/uL; Basophil% 0.8 % (0-1); Eosinophil# 0.29 X10^3/uL; Eosinophils% 5.9 % (0-5); Hematocrit 35.9 % (40-54); Hemoglobin 11.2 g/dL (13.0-16.5); Lymphocyte # 1.12 X10^3/ul (0.83-4.51); Lymphocyte % 22.9 % (19-41); Mean Corp Hgb Conc 31.2 g/dL (32-36); Mean Corpuscular Hgb 27.6 pg (27.0-32.0); Mean Corpuscular Volume 88.4 fL (80-94); Mean Platelet Vol. 8.9 fl (6.2-12.0); Monocyte# 0.82 X10^3/uL; Monocyte% 16.7 % (0-10); NRBC Flagged by Analyzer 0 % (0-5); Neutrophil # 2.62 X10^3/uL (2.7-7.7); Neutrophil % 53.5 % (47-70); Platelet Count 269 K/mm3 (150-450); RBC Distribution Width CV 14.9 % (11.6-14.6); RBC Distribution Width SD 48.3 fl (35.1-43.9); Red Blood Count 4.06 M/mm3 (4.6-6.2); White Blood Count 4.9 K/mm3 (4.4-11.0)
[2021-08-28 12:35] LABS: Vitamin D,25 Hydroxy 25.1 ng/mL
[2021-08-28 12:45] LABS: ALB/GLOB Ratio 0.9 RATIO (0.9-2.4); AST(SGOT) 23 U/L (15-37); Alanine Aminotransfer ALT/SGPT 16 U/L (16-61); Albumin, Serum 3.5 g/dL (3.2-5.0); Alkaline Phosphatase 54 U/L (45-117); Anion Gap 6 (5-15); BUN 14 mg/dL (7-18); Calcium,Total 8.5 mg/dL (8.5-10.1); Chloride 105 mmol/L (98-107); Creatinine, Serum 0.88 mg/dL (0.70-1.30); EST Glomerular Filtration Rate 88 mL/min (>60); Est Glom Filt Rate - Afr Amer 107 mL/min (>60); Globulin 3.8 g/dL (2.2-4.2); Glucose 103 mg/dL (74-106); Potassium 3.8 mmol/L (3.5-5.1); Protein, Total 7.3 g/dL (6.4-8.2); Sodium Level 138 mmol/L (136-145); Thyroid Stim Hormone (TSH) 1.21 uIU/mL (0.358-3.74)
== END | disposition home or self-care (01) ==
LOC: POLAB3 11:19
PROVIDERS: PCP Family Medicine Geriatric Medicine; Visit Provider Family Medicine Geriatric Medicine
DX: I10 Essential (primary) hypertension (principal); E23.6 Other disorders of pituitary gland; E55.9 Vitamin D deficiency, unspecified
CPT/HCPCS: 36415; 80053; 82306; 84403; 84443; 85025

== ENCOUNTER → 2022-02-05 | Outpatient (CLI) | payer MEDICARE, OTHER, SELFPAY ==
[2016-10-05 13:30] VITALS: BMI 26.1
== END | disposition home or self-care (01) ==
LOC: PSN 09:23
PROVIDERS: PCP Family Medicine Geriatric Medicine; Visit Provider Family Medicine Geriatric Medicine
DX: U07.1 COVID-19 (principal)
CPT/HCPCS: 87635; 87804; 87807; U0003; U0005

== ENCOUNTER 2022-02-21 04:52 | Observation (INO) | payer MEDICARE, OTHER, SELFPAY ==
[2016-10-05 13:30] VITALS: BMI 26.1
[2022-02-21] VITALS (20 sets, daily range): BP systolic 97–126; BP diastolic 43–89; PULSE 60–148; RESP 14–21; TEMP 36.6–36.9; O2SAT 94–98; BMI 24.4; BMI 23.3
--- NOTE | 2022-02-21 05:16 | EKG12_ITS ---
Test Reason : CP Blood Pressure : / mmHG Vent. Rate : 152 BPM Atrial Rate : 102 BPM P-R Int : 000 ms QRS Dur : 088 ms QT Int : 306 ms P-R-T Axes : 000 023 049 degrees QTc Int : [address] depression, consider subendocardial injury Abnormal ECG Confirmed by HARJIT WOOD, VICENTE ([id number]), editor at large NEERAJ MEJIAS ([id number]) on 02/24/2022 12:15:53 PM Referred By: KEYLA Confirmed By:VICENTE LOMBARDI MD
[2022-02-21 05:26] LABS: Absolute Lymphocyte Count 2.04 X10^3/uL (0.83-4.51); Absolute Neutrophil Count 2.9 X10^3/uL (2.0-7.7); Basophil# 0.04 X10^3/uL; Basophil% 0.6 % (0-1); Eosinophil# 0.32 X10^3/uL; Eosinophils% 5.1 % (0-5); Hematocrit 36.3 % (40-54); Hemoglobin 11.5 g/dL (13.0-16.5); Lymphocyte # 2.04 X10^3/ul (0.83-4.51); Lymphocyte % 32.6 % (19-41); Mean Corp Hgb Conc 31.7 g/dL (32-36); Mean Corpuscular Hgb 28.3 pg (27.0-32.0); Mean Corpuscular Volume 89.4 fL (80-94); Mean Platelet Vol. 8.8 fl (6.2-12.0); Monocyte# 0.95 X10^3/uL; Monocyte% 15.2 % (0-10); NRBC Flagged by Analyzer 0 % (0-5); Neutrophil # 2.89 X10^3/uL (2.7-7.7); Neutrophil % 46.2 % (47-70); Platelet Count 306 K/mm3 (150-450); RBC Distribution Width CV 15.9 % (11.6-14.6); RBC Distribution Width SD 52.9 fl (35.1-43.9); Red Blood Count 4.06 M/mm3 (4.6-6.2); White Blood Count 6.3 K/mm3 (4.4-11.0)
--- NOTE | 2022-02-21 05:27 | ED.VIS.CHEST ---
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 Patient states he got out of bed early this morning and started having a belching spell. This lasted for about 30 minutes. He has discomfort in his chest arms and back. He knows Tums did help. He notes a slight fluttering in his chest. He attributes his symptoms to eating [employer] with coleslaw last night. Patient did have a COVID-19 infection couple weeks ago. Had previously been on metoprolol but was taken off by his provider engagement executive. He does not recall why. Denies any history of any arrhythmias including atrial fibrillation.Denies any black or blood in the stool. Denies any nausea or vomiting. Denies any urinary symptoms. No other complaints at this time. [facility] Medical History Atherosclerosis of coronary artery of [place] heart without angina pectoris Bronchitis Cough Crohn disease DDD (degenerative disc disease) Deep vein thrombosis of left lower extremity (2012) Essential (primary) hypertension GERD (gastroesophageal reflux disease) Glaucoma Heartburn Hyperlipidemia Multiple allergies Non-ST elevation (NSTEMI) myocardial infarction (10/03/16) PND (post-nasal drip) Prostate enlargement PUD (peptic ulcer disease) Skin cancer Stomach ulcer Unstable angina Home Medications nitroglycerin 0.4 mg sublingual tablet (Nitrostat) 0.4 mg sublingual Q5-15M PRN Chest Pain 04/06/17 [History Last Taken Unknown] apixaban 5 mg tablet (Eliquis) 5 mg PO BID 12/16/17 [History Last Taken Unknown] atorvastatin 20 mg tablet 20 mg PO QHS 11/03/18 [History Last Taken Unknown] balsalazide 750 mg capsule 750 mg PO .COMPLEX 07/11/19 [History Last Taken Unknown] pantoprazole 40 mg tablet,delayed release 40 mg PO DAILY 01/26/20 [History Last Taken Unknown] acetaminophen 325 mg tablet (Tylenol) 650 mg PO Q6H PRN Breakthrough Pain, Mild 05/08/21 [History Last Taken Unknown] dextromethorphan polistirex 30 mg/5 mL oral susp ext.release 12hr (Robitussin ER) 10 ml PO Q12H PRN Cough 05/08/21 [History Last Taken Unknown] guaifenesin 600 mg tablet, extended release 12 hr (Mucinex) 600 mg PO Q12H PRN Cough 05/08/21 [History Last Taken Unknown] amlodipine 5 mg tablet 5 mg PO DAILY #90 tabs 05/12/21 [Rx Last Taken Unknown] Allergy/AdvReac Type Severity Reaction Status Date / Time ragweed pollen AdvReac Intermediate Nasal Verified 02/21/22 04:56 congestion Family History Father Heart disease Mother CVA (cerebral vascular accident) Surgical History H/O colonoscopy History of coronary artery stent placement (10/05/16) History of dental surgery (04/15/21) Previous back surgery Social History household members: spouse Smoking Status: Former smoker second hand exposure: No alcohol intake: never substance use type: does not use ROS ROS ED Constitutional Constitutional ED: Denies chills or fever(s) Eyes Eyes: Denies change in vision ENT ENT ED: Denies rhinorrhea or sore throat Cardiovascular Cardiovascular: Reports as per HPI, chest pain and palpitations Respiratory/Chest Respiratory/Chest: Denies cough or dyspnea Gastrointestinal Gastrointestinal: Denies abdominal pain, diarrhea, nausea or vomiting Genitourinary Genitourinary ED: Denies dysuria or hematuria Musculoskeletal Musculoskeletal: Reports back pain; Denies arthralgias Integumentary Denies rash Neurologic Neurologic: Denies headache(s) or weakness Psychiatric Psychiatric: Denies anxiety Hematologic/Lymphatic Hematologic/Lymphatic: Reports easy bleeding and easy bruising EXAM Physical Exam Const Vital Signs: 02/21/22 04:53 02/21/22 04:53 02/21/22 05:35 Temperature 97.8 F Temperature Source Temporal Temporal Pulse Rate 148 H Respiratory Rate 17 Blood Pressure 118/79 Blood Pressure Mean 92 Pulse Ox 94 95 Oxygen Delivery Method Room Air Room Air 02/21/22 05:52 02/21/22 07:05 02/21/22 07:11 Temperature Temperature Source Pulse Rate 128 H 92 119 H Respiratory Rate 18 18 14 Blood Pressure 114/77 115/89 H 115/89 H Blood Pressure Mean 89 97 97 Pulse Ox 97 95 96 Oxygen Delivery Method Room Air Room Air Positive well nourished and well developed General Appearance ED: well developed and NAD HEENT Reports moist mucous membranes normocephalic and atraumatic Eyes PERRL and EOMs intact bilaterally Neck supple and no JVD Chest Wall inspection of chest normal Resp normal respiratory effort and clear to auscultation bilaterally Cardio Rate: tachycardic Rhythm: abnormal rhythm irregularly irregular Peripheral Pulses: pulses 2+ throughout GI normal to inspection, nondistended, normoactive bowel sounds and soft to palpation Back/Spine no CVA tenderness Extremity normal to inspection General Extremety ED: Negative for edema General Extremity: Negative for edema Neuro oriented x3 and no sensory deficits noted Sensorium / Orientation: awake and alert Motor Exam: strength 5/5 throughout; Negative for general weakness Psych mental status grossly normal Skin no rashes or lesions noted MDM MDM MDM Narrative Medical decision making narrative: Chest discomfort. He is in atrial fibrillation with RVR. Patient is placed on the monitor. Is given gentle IV fluids and IV pushes of metoprolol for further rate control. We will obtain further cardiac evaluation. Patient has minimal rate control with metoprolol. He is then started on Cardizem. He is given a 5 mg bolus and started at 5 mg/h. Patient has some rate response to this. Given that its been a couple years since his last echocardiogram and his advanced age I think it be reasonable to bring him in for further cardiac evaluation for his chest pain as well as his atrial fibrillation with RVR. Patient is agreeable with this. Case is discussed with Dr. Lund. Lab Data Labs: Laboratory Results - last 24 hr 02/21/22 02/21/22 02/21/22 05:05 05:05 05:05 WBC 6.3 RBC 4.06 L Hgb 11.5 L Hct 36.3 L MCV 89.4 MCH 28.3 MCHC 31.7 L RDW Std Deviation 52.9 H RDW Coeff of Gaby 15.9 H Plt Count 306 MPV 8.8 Immature Gran % (Auto) 0.300 Neut % (Auto) 46.2 L Lymph % (Auto) 32.6 [place] % (Auto) 15.2 H Eos % (Auto) 5.1 H Baso % (Auto) 0.6 Absolute Neuts (auto) 2.9 Absolute Lymphs (auto) 2.04 Nucleated RBC % 0 PT 15.5 H INR 1.3 Sodium 142 Potassium 3.4 L Chloride 107 Carbon Dioxide 26.0 Anion Gap 9 BUN 17 Creatinine 0.90 Estim Creat Clear Calc 60.17 Est GFR (MDRD) Af Amer 104 Est GFR (MDRD) Non-Af 86 BUN/Creatinine Ratio 19.0 Glucose 110 H Calcium 8.4 L Magnesium 2.0 Total Bilirubin 1.50 H AST 16 ALT 17 Alkaline Phosphatase 50 Troponin I High Sens 10 B-Natriuretic Peptide Total Protein 7.1 Albumin 3.5 Globulin 3.6 Albumin/Globulin Ratio 1.0 Lipase 122 TSH 1.17 02/21/22 05:05 WBC RBC Hgb Hct MCV MCH MCHC RDW Std Deviation RDW Coeff of Gaby Plt Count MPV Immature Gran % (Auto) Neut % (Auto) Lymph % (Auto) [place] % (Auto) Eos % (Auto) Baso % (Auto) Absolute Neuts (auto) Absolute Lymphs (auto) Nucleated RBC % PT INR Sodium Potassium Chloride Carbon Dioxide Anion Gap BUN Creatinine Estim Creat Clear Calc Est GFR (MDRD) Af Amer Est GFR (MDRD) Non-Af BUN/Creatinine Ratio Glucose Calcium Magnesium Total Bilirubin AST ALT Alkaline Phosphatase Troponin I High Sens B-Natriuretic Peptide 102.9 H Total Protein Albumin Globulin Albumin/Globulin Ratio Lipase TSH Radiography Chest X-Ray - ED: 1 View, Read by ED Physician, Read by Radiologist and No Acute Disease Diagnostic Testing: Clinical Impression(s) from Imaging Studies Chest X-Ray 02/21/22 06:12 IMPRESSION: No acute findings. Underlying COPD/emphysema. Electronically Signed: William Medellin MD at 6:33 EST Reading Location ID and State: [facility] [place] Tel , Service support , Rhythm Strip Rhythm Strip: A-fib Rate: 152 Ectopy: None EKG Initial EKG: Attestation: I personally reviewed and interpreted this EKG as follows: Interpretation: Atrial Fibrillation Comments: Atrial fibrillation with rapid ventricular response at a rate of 152 bpm Normal axis Normal QRS and QTc ST depressions in inferior and precordial leads consistent with subendocardial injury Compared to prior EKG patient is now in atrial fibrillation and has ST depressions Critical Care Time Critical Care Time: Yes Critical care time (excluding procedures): 30-74 minutes (35), Discussing w/Patient &/or Family/Production Checker, Arranging Admission or Transfer and Performing Direct Patient Care at Bedside Discharge Plan Triage Chief Complaint: Chest Pain ED Provider: Nicole Ventura Dx/Rx/DC Orders Clinical Impression: Atrial fibrillation with rapid ventricular response, Chest pain Prescriptions: No Action nitroglycerin [Nitrostat] 0.4 mg tablet, sublingual 0.4 mg SUBLINGUAL Q5-15M PRN (Reason: Chest Pain) Eliquis 5 mg tablet 5 mg PO BID atorvastatin 20 mg tablet 20 mg PO QHS pantoprazole 40 mg tablet,delayed release (DR/EC) 40 mg PO DAILY dextromethorphan polistirex [Robitussin ER] 30 mg/5 mL suspension,extended rel 12 hr 10 ml PO Q12H PRN (Reason: Cough) acetaminophen [Tylenol] 325 mg tablet 650 mg PO Q6H PRN (Reason: Breakthrough Pain, Mild) guaifenesin [Mucinex] 600 mg tablet extended release 12hr 600 mg PO Q12H PRN (Reason: Cough) balsalazide 750 mg capsule 750 mg PO .COMPLEX Rx Instructions: 750 mg PO 6 per day; amlodipine 5 mg tablet 5 mg PO DAILY Qty: 90 3RF Label Comments: TAKE 1 TABLET ORALLY ONCE PER DAY FOR 90 DAYS Primary Care Provider: Marcelo Mccullough Chi Referrals: Marcelo Mccullough Chi, MD [Primary Care Provider] - Disposition Disposition: Acute Care Hospital [facility]
[2022-02-21] MEDS: Metoprolol Tartrate 5 MG/5 ML Vial IV ×3 (05:32→05:52)
[2022-02-21] MEDS: 0.9% Normal Saline 1,000 ML 150 ML IV (05:32)
[2022-02-21 05:41] LABS: International Normalized Ratio 1.3; Prothrombin Time (Protime)PT. 15.5 SECONDS (11.7-14.9)
[2022-02-21 05:47] LABS: BNP,B-Type NATRIURETIC PEPTIDE 102.9 pg/mL (0-100)
[2022-02-21 05:50] LABS: AST(SGOT) 16 U/L (15-37); Alanine Aminotransfer ALT/SGPT 17 U/L (16-61); Albumin, Serum 3.5 g/dL (3.2-5.0); Alkaline Phosphatase 50 U/L (45-117); Anion Gap 9 (5-15); BUN 17 mg/dL (7-18); Calcium,Total 8.4 mg/dL (8.5-10.1); Chloride 107 mmol/L (98-107); EST Glomerular Filtration Rate 86 mL/min (>60); Est Glom Filt Rate - Afr Amer 104 mL/min (>60); Estimated Creatinine Clearance 60.17 ml/min; Globulin 3.6 g/dL (2.2-4.2); Glucose 110 mg/dL (74-106); Lipase 122 U/L (73-393); Potassium 3.4 mmol/L (3.5-5.1); Protein, Total 7.1 g/dL (6.4-8.2); Sodium Level 142 mmol/L (136-145); Thyroid Stim Hormone (TSH) 1.17 uIU/mL (0.358-3.74); Troponin-I HS (w/2H Reflex) 10 pg/mL (3.0-78.0)
--- NOTE | 2022-02-21 06:12 | RAD_ITS ---
STUDY: X-RAY CHEST REASON FOR EXAM: Male, 81 years old. Chest pain. TECHNIQUE: AP COMPARISON: 03/19/2021 CXR FINDINGS: LUNGS: No evidence of pneumonia, pulmonary edema, pneumothorax or pleural effusion. Lucent and hyperinflated lungs. Mild linear subsegmental atelectasis/scarring lung bases. MEDIASTINUM, CHRIS: Cardiac silhouette, hilar and mediastinal contours with no acute findings. BONES: Degenerative osseous changes with no acute osseous abnormality. UPPER ABDOMEN: Not well evaluated on this view. RAD/Chest 1 View (Portable) IMPRESSION: No acute findings. Underlying COPD/emphysema. Electronically Signed: William Medellin MD at 6:33 EST Reading Location ID and State: [facility] ID Tel , Service support ,
[2022-02-21] MEDS: dilTIAZem 25 MG/5 ML Vial 5 MG IV BOLUS (06:42)
[2022-02-21 07:22] LABS: Reflex Troponin-HS? (from REC) Y
--- NOTE | 2022-02-21 07:36 | NURSING ---
LENNIE BLUE W RVR
[2022-02-21 08:04] LABS: Troponin-I HS 38 pg/mL (3.0-78.0)
[2022-02-21] MEDS: Lactated Ringers 1,000 ML 100 ML IV ×2 (08:36→11:00)
[2022-02-21] MEDS: Aspirin 325 MG Tablet PO (08:37)
--- NOTE | 2022-02-21 08:47 | HP.PCM.HOS_ITS ---
[facility] - General General Date of Admission: 02/21/22 Date of Service: 02/21/22 Chief Complaint: Belching started having chest pressure, found A. fib with RVR in ED. [facility] Narrative IRWIN GONZALEZ, is a 81 M with multiple comorbidities including coronary artery status post stents as listed below was brought to ED by EMS for chest tightness/aches as he described. Before that at 3 AM he started having belching and reflux symptoms and he took Tums. He did not get better and he started having chest aches described midsternal region with radiation to shoulder and jaws. He did not notice any change in shortness of breath. No dizziness vertigo or syncope. EMS found heart rate 180/min. In ED was found to have A. fib with RVR, 148/min. Patient states he did not have a history of A. fib but is taking Eliquis for left leg DVT for past 8 to 10 years. Patient was given 5 mg IV Cardizem bolus and started on drip 5 mg/h but he dropped blood pressure in 80s therefore I ordered 0.5 mg IV digoxin. IV Cardizem drip on hold. Patient on normal saline chest Ringer lactate. Of note, patient had COVID-19 tested positive about 3 weeks ago. He said he has chronic URI symptoms including postnasal drip rhinorrhea, snowfall or occasional cough for many years but currently taking Robitussin for diagnosed COVID. His URI symptoms are better. He denies significant cough. No fever or chills. In ED, twelve-lead EKG individually reviewed. EMS EKG shows sinus tachycardia 155 bpm with PAC. In ED A. fib with RVR 152) with slight ST depression in V2 to V3 6. Previous EKG in August 2020 was normal sinus rhythm. Chest x-ray initially reviewed and shows no acute finding but chronic COPD/emphysema [facility] Medical History Atherosclerosis of coronary artery of [place] heart without angina pectoris Bronchitis Cough Crohn disease DDD (degenerative disc disease) Deep vein thrombosis of left lower extremity (2012) Essential (primary) hypertension GERD (gastroesophageal reflux disease) Glaucoma Heartburn Hyperlipidemia Multiple allergies Non-ST elevation (NSTEMI) myocardial infarction (10/03/16) PND (post-nasal drip) Prostate enlargement PUD (peptic ulcer disease) Skin cancer Stomach ulcer Unstable angina Home Medications nitroglycerin 0.4 mg sublingual tablet (Nitrostat) 0.4 mg sublingual Q5-15M PRN Chest Pain 04/06/17 [History Last Taken Unknown] apixaban 5 mg tablet (Eliquis) 5 mg PO BID 12/16/17 [History Last Taken Unknown] atorvastatin 20 mg tablet 20 mg PO QHS 11/03/18 [History Last Taken Unknown] balsalazide 750 mg capsule 750 mg PO .COMPLEX 07/11/19 [History Last Taken Unknown] pantoprazole 40 mg tablet,delayed release 40 mg PO DAILY 01/26/20 [History Last Taken Unknown] acetaminophen 325 mg tablet (Tylenol) 650 mg PO Q6H PRN Breakthrough Pain, Mild 05/08/21 [History Last Taken Unknown] dextromethorphan polistirex 30 mg/5 mL oral susp ext.release 12hr (Robitussin ER) 10 ml PO Q12H PRN Cough 05/08/21 [History Last Taken Unknown] guaifenesin 600 mg tablet, extended release 12 hr (Mucinex) 600 mg PO Q12H PRN Cough 05/08/21 [History Last Taken Unknown] amlodipine 5 mg tablet 5 mg PO DAILY #90 tabs 05/12/21 [Rx Last Taken Unknown] Allergy/AdvReac Type Severity Reaction Status Date / Time ragweed pollen AdvReac Intermediate Nasal Verified 02/21/22 04:56 congestion Family History Father Heart disease Mother CVA (cerebral vascular accident) Surgical History H/O colonoscopy History of coronary artery stent placement (10/05/16) History of dental surgery (04/15/21) Previous back surgery Social History household members: spouse Smoking Status: Former smoker second hand exposure: No alcohol intake: never substance use type: does not use ROS ROS Narrative Constitutional: Reports fatigue and weakness. No fever or chills. HEENT: Reports systems reviewed and no addt'l complaints, except as documented Respiratory/Chest: As described in HPI CVS: As described in HPI. No syncope. Gastrointestinal: Denies coffee ground emesis, hematemesis or vomiting Genitourinary: Denies burning urination or new urinary tract symptoms Musculoskeletal: Reports mild joint pain and limited range of motion Neurologic: Denies seizure-like activity. No focal neurological symptoms weakness or numbness but skin: Chronic left lower leg rash. No pain. Endocrinology: Reports systems reviewed and no addt'l complaints, except as documented Hematologic/Lymphatic: Reports systems reviewed and no addt'l complaints, except as documented Rest 14 ROS are negative except as mentioned in HPI Vital Signs Vital Signs Vital Signs: 02/21/22 04:53 02/21/22 04:53 02/21/22 05:35 Temperature 97.8 F Temperature Source Temporal Temporal Pulse Rate 148 H Respiratory Rate 17 Blood Pressure 118/79 Blood Pressure Mean 92 Pulse Ox 94 95 Oxygen Delivery Method Room Air Room Air 02/21/22 05:52 02/21/22 07:05 02/21/22 07:11 Temperature Temperature Source Pulse Rate 128 H 92 119 H Respiratory Rate 18 18 14 Blood Pressure 114/77 115/89 H 115/89 H Blood Pressure Mean 89 97 97 Pulse Ox 97 95 96 Oxygen Delivery Method Room Air Room Air 02/21/22 08:28 Temperature 97.8 F Temperature Source Temporal Pulse Rate 110 H Respiratory Rate 18 Blood Pressure 99/84 H Blood Pressure Mean 89 Pulse Ox 98 Oxygen Delivery Method Room Air Weight Weight: 160 lb 7.944 oz Body Mass Index (BMI) 24.4 Physical Exam Narrative Physical exam General: Alert, Oriented x3, Cooperative HEENT: Atraumatic, PERRLA, EOMI, Normocephalic Oral: Oral mucosa moist. No Gingival or Mucosal Lesions/ Ulcerations Neck: Supple, No JVD, Negative Carotid Bruits Lungs: Air entry diminished in bilateral lungs. No crepitation/rhonchi Cardiovascular: Regular rhythm, A. fib RVR, Normal S1, Normal S2, No murmurs Abdomen: Bowel Sounds Present, Soft, Non Tender, Non-Distended : No renal angle tenderness. No suprapubic tenderness. Extremities: No edema, Capillary Refill Less than 3 Seconds Skin: Chronic mild redness, pruritus, papular seems chronic eczema. Musculoskeletal: No Tenderness to Palpation of Joints or Extremities. Bilateral hip and knee arthritis. Neurological: Cranial nerves II-XII grossly intact, DTR 2+/4 and Symmetrical, Neuro grossly intact Psych/Mental Status: Normal Affect, Appropriate. Results Lab / Micro Data Result Diagrams: 02/21/22 05:05 02/21/22 05:05 Labs: Laboratory Results - last 24 hr 02/21/22 05:05: Sodium 142, Potassium 3.4 L, Chloride 107, Carbon Dioxide 26.0, Anion Gap 9, BUN 17, Creatinine 0.90, Estim Creat Clear Calc 60.17, Est GFR (MDRD) Af Amer 104, Est GFR (MDRD) Non-Af 86, BUN/Creatinine Ratio 19.0, Glucose 110 H, Calcium 8.4 L, Magnesium 2.0, Total Bilirubin 1.50 H, AST 16, ALT 17, Alk kaitlin Phosphatase 50, Troponin I High Sens 10, Total Protein 7.1, Albumin 3.5, Globulin 3.6, Albumin/Globulin Ratio 1.0, Lipase 122, TSH 1.17 02/21/22 05:05: WBC 6.3, RBC 4.06 L, Hgb 11.5 L, Hct 36.3 L, MCV 89.4, MCH 28.3, MCHC 31.7 L, RDW Std Deviation 52.9 H, RDW Coeff of Gaby 15.9 H, Plt Count 306, MPV 8.8, Immature Gran % (Auto) 0.300, Neut % (Auto) 46.2 L, Lymph % (Auto) 32.6, [place] % (Auto) 15.2 H, Eos % (Auto) 5.1 H, Baso % (Auto) 0.6, Absolute Neuts (auto) 2.9, Absolute Lymphs (auto) 2.04, Nucleated RBC % 0 02/21/22 05:05: PT 15.5 H, INR 1.3 02/21/22 05:05: B-Natriuretic Peptide 102.9 H 02/21/22 07:35: Magnesium 2.0, Troponin I High Sens 38 Rhythm Strip Rhythm Strip: A-fib Rate: 152 Ectopy: None Radiology Impression Chest X-Ray 02/21/22 06:12 IMPRESSION: No acute findings. Underlying COPD/emphysema. Electronically Signed: William Medellin MD at 6:33 EST Reading Location ID and State: [facility] / [place] Tel , Service support , Assessment & Plan Assessment/Plan (1) Atrial fibrillation with rapid ventricular response: (2) Chest pressure: PLAN: Plan This is 81-year-old gentleman brought to EMS by belching, chest pressure and found to have A. fib with RVR new onset in ED. 1. A. fib with RVR, new onset: Patient is being admitted in PCU. He follows Dr. Miller. Patient started on metoprolol 25 mg twice daily and digoxin 0.5 mg IV 1 dose given in ED. Discontinue Cardizem drip as patient had hypotension. Patient is already on Eliquis 5 mg twice daily. Discussed with insurance attorney Dr. Marie and advised to repeat digoxin 0.25 mg IV after 6 hours and start low-dose Cardizem 30 mg every 6 hourly. 2D echo is ordered. Discharge tomorrow AM. 2. Atypical chest pressure with history of coronary artery disease status post PCI with history of non-STEMI: Patient follows Dr. Miller last seen by MIRA Edgar in cardiology office in April 2021. Patient had PCI/stent in 2016 in [facility]. Patient on amlodipine. Currently, not on beta-liang or JESSICA/ARB but seems he was on metoprolol during last admission in 2016 for non-STEMI. Serial high-sensitivity troponins. Fasting profile ordered. Patient had last pharmacological nuclear stress test in January 2020 reported normal. Stress echo in July 2018 reported normal and negative for ischemia by EKG and echo criteria with EF 65%. 3. COPD/emphysema: Patient follows in pulmonary clinic, last seen in May 2017. Patient was started on Breo Ellipta at that time but currently not seen in patient's home med list. PFT in April 2017 shows partially reversible moderate large airway obstructive ventilatory defect resulting in air trapping a nd hyperinflation, DLCO 73% predicted. TLC 124% predicted, FRC and RV elevated suggestive of emphysema Incentive spirometry ordered. Continue Mucinex. DuoNeb as needed for shortness of breath/confusion 4.? History of DVT-continue Eliquis 5.? HTN -blood pressure is on lower side. Hold amlodipine 6. Ulcerative colitis-on balsalazide. 7.Dyslipidemia: On atorvastatin 20 mg daily. Clinical Impression(s) from Imaging Studies Chest X-Ray 02/21/22 06:12 IMPRESSION: No acute findings. Underlying COPD/emphysema. Laboratory Results 02/21/22 05:05: Sodium 142, Potassium 3.4 L, Chloride 107, Carbon Dioxide 26.0, Anion Gap 9, BUN 17, Creatinine 0.90, Estim Creat Clear Calc 60.17, Est GFR (MDRD) Af Amer 104, Est GFR (MDRD) Non-Af 86, BUN/Creatinine Ratio 19.0, Glucose 110 H, Calcium 8.4 L, Magnesium 2.0, Total Bilirubin 1.50 H, AST 16, ALT 17, Alkaline Phosphatase 50, Troponin I High Sens 10, Total Protein 7.1, Albumin 3.5, Globulin 3.6, Albumin/Globulin Ratio 1.0, Lipase 122, TSH 1.17 02/21/22 05:05: WBC 6.3, RBC 4.06 L, Hgb 11.5 L, Hct 36.3 L, MCV 89.4, MCH 28.3, MCHC 31.7 L, RDW Std Deviation 52.9 H, RDW Coeff of Gaby 15.9 H, Plt Count 306, MPV 8.8, Immature Gran % (Auto) 0.300, Neut % (Auto) 46.2 L, Lymph % (Auto) 32.6, [place] % (Auto) 15.2 H, Eos % (Auto) 5.1 H, Baso % (Auto) 0.6, Absolute Neuts (auto) 2.9, Absolute Lymphs (auto) 2.04, Nucleated RBC % 0 02/21/22 05:05: PT 15.5 H, INR 1.3 02/21/22 05:05: B-Natriuretic Peptide 102.9 H 02/21/22 05:05: Phosphorus 2.9 02/21/22 07:35: Magnesium 2.0, Troponin I High Sens 38 Total time of the visit including total time spent in counseling or coordination of care, (more than 50% of the total time, spent in obtaining medical informa tion from nurses and other ancillary care providers,explaining to the patient about labs, imaging, diagnosis and management of active complex medical conditions), discussion with insurance attorney, review of medical record, review of labs and imaging is 55 minutes Living will/advanced directive/end of life care: Patient does have living will or advanced directive/power of state's attorney for health. His son present in the ED is power of state's attorney for health. After discussion of benefits/risks procedures involved with full code, DNR CC arrest and DNR CC, the patient and son opted for full code although he does not want to be prolonged on life support in comatose or vegetative state Patient does want artificial life support including intubation, tube feed, ventilator and/chest compression, central venous catheter, vasopressor and DC shock if needed Total time spent in [id number] encounter in discussion of advanced directive 16 minutes. Charges/Coding Visit Charges Inpatient E&M: 32881 Init Hosp L3 Procedures Hospitalists Procedures: 82348 Advncd Care Plan 30 Min
[2022-02-21] MEDS: Digoxin 250 MCG/ML Ampul 500 MCG IV (08:54)
[2022-02-21 08:58] LABS: Phosphorus 2.9 mg/dL (2.5-4.9)
--- NOTE | 2022-02-21 08:59 | ED.RN ---
orders changed per dr childers
--- NOTE | 2022-02-21 09:19 | EKG12_ITS ---
Test Reason : Blood Pressure : / mmHG Vent. Rate : 066 BPM Atrial Rate : 066 BPM P-R Int : 188 ms QRS Dur : 082 ms QT Int : 392 ms P-R-T Axes : 075 029 049 degrees QTc Int : 410 ms Sinus rhythm /Sinus Arrhythmia Low voltage QRS Borderline ECG Confirmed by MALIK WOOD, GENO ([id number]), assistant editor NEERAJ MEJIAS ([id number]) on 02/25/2022 8:56:38 AM Referred By: Confirmed By:GENO GAN MD
--- NOTE | 2022-02-21 09:19 | ECHOCS_ITS ---
Reason For Study: Afib/Flutter Procedure This was a 2D Doppler, Color Flow transthoracic echocardiogram. The study was technically difficult. Contrast injection was performed. Exam performed portable in patient room. Left Ventricle Normal LV size. Mild concentric left ventricular hypertrophy. The left ventricular ejection fraction is 55 %. Unable to assess diastolic dysfunction due to arrhythmia. Right Ventricle Mildly dilated right ventricle. Normal systolic function. Atria The left atrium is severely enlarged. The right atrium is severely enlarged. Mitral Valve Moderate focal mitral valve calcification of the posterior leaflet. Trivial mitral valve insufficiency. Tricuspid Valve Trivial tricuspid valve insufficiency. Normal pulmonary artery pressure. Aortic Valve Normal aortic valve. Trivial aortic valve insufficiency. Pulmonic Valve The pulmonic valve is not well visualized. Great Vessels The inferior vena cava is dilated. Pericardium/Pleural No pericardial effusion. Medication Diluted definity 2ml given slow IV push to enhance endocardial definition. MMode/2D Measurements & Calculations LVIDd: 3.9 cm IVSd: 0.89 cm LA dimension: 4.3 cm LVIDs: 2.6 cm LVPWd: 1.2 cm FS: 34.1 % LAV(MOD-sp4): 66.6 ml LA A4 area: 21.1 cm2 RA A4 area: 16.8 cm2 Time Measurements MV dec time: 0.09 sec Doppler Measurements & Calculations MV E max yisel: 90.1 cm/sec MV V2 max: 104.2 cm/sec MV P1/2t max yisel: 103.9 cm/sec MV max P.4 mmHg MV P1/2t: 60.4 msec MV V2 mean: 44.2 cm/sec MV dec slope: 504.0 cm/sec2 MV mean P.1 mmHg MV V2 VTI: 21.5 cm MVA(P1/2t): 3.6 cm2 Ao V2 max: 77.2 cm/sec LV V1 max: 90.0 cm/sec PA V2 max: 60.6 cm/sec Ao max P.4 mmHg LV V1 max P.3 mmHg TR max yisel: 226.5 cm/sec TR max P.5 mmHg ECHO/Echo Complete W/ Contrast Interpretation Summary Mild concentric left ventricular hypertrophy. The left ventricular ejection fraction is 55 %. Unable to assess diastolic dysfunction due to arrhythmia. Mildly dilated right ventricle. The left atrium is severely enlarged. Moderate focal mitral valve calcification of the posterior leaflet. The inferior vena cava is dilated The study was technically difficult. Ordering Physician: Simon Lund Performed By: Tank Kay RCS
[2022-02-21] MEDS: dilTIAZem 30 MG Tablet PO ×3 (09:53→18:25)
[2022-02-21] MEDS: Metoprolol Tartrate 25 MG Tablet PO ×2 (09:53→21:26)
[2022-02-21] MEDS: Pantoprazole Sodium 40 MG Tablet PO (09:53)
[2022-02-21] MEDS: APIXABAN 5 MG TABLET PO ×2 (09:54→21:26)
[2022-02-21] MEDS: Lactated Ringers 500 ML 999 ML IV (10:26)
[2022-02-21] MEDS: Potassium Chloride Oral Tablet 20 MEQ 40 MEQ PO ×2 (11:00→15:27)
[2022-02-21] MEDS: Acetaminophen 325 MG Tablet 650 MG PO (11:00)
[2022-02-21 11:15] LABS: Troponin-I HS 66 pg/mL (3.0-78.0)
[2022-02-21] MEDS: Digoxin 250 MCG/ML Ampul IV (15:27)
[2022-02-21] MEDS: 0.9% Saline Lock 10 ML Syringe IV (15:27)
--- NOTE | 2022-02-21 18:10 | EKG12_ITS ---
Test Reason : Blood Pressure : / mmHG Vent. Rate : 124 BPM Atrial Rate : 000 BPM P-R Int : 000 ms QRS Dur : 086 ms QT Int : 332 ms P-R-T Axes : 000 009 051 degrees QTc Int : 476 ms Atrial fibrillation with rapid ventricular response Abnormal ECG When compared with ECG of 21-FEB-2022 04:57, MANUAL COMPARISON REQUIRED, DATA IS UNCONFIRMED Confirmed by HARJIT WOOD, VICENTE ([id number]), makeup editor NEERAJ MEJIAS ([id number]) on 02/24/2022 12:43:00 PM Referred By: BLANK Confirmed By:VICENTE LOMBARDI MD
--- NOTE | 2022-02-21 19:00 | CASEMGMT ---
JUILUS GARCIA FINANCE DIRECTOR CM to room to meet with patient for initial transition planning/care coordination assessment. JULIUS GARCIA introduced self and role at [facility].? Pt voices understanding and consents to assessment at this time.? Pt resting in bed in no distress at this time.? Pt is A/O at this time and answers all questions appropriately.?? Care providers, pharmacy, and demographics verified/updated at this time.? PCP:?Dr Mccullough Specialists:?Dr Lewis-gastroenterology, Dr Miller-cardiology Preferred Pharmacy:?[facility] [place] Insurance:?[employer] Prescription Benefit:??Yes Living Will/HPOA:??Has both LW and HCPOA, who is his , Shirley CRANE:?, Shirley. Daughter, Rosa. 2 other children Living Arrangements:?Lives w/ in 2-story home w/4 steps to enter. FFSU. Independent w/ADL's. and pt share home mgmt tasks. Transportation:?Pt states drives self and states no transportation concerns at this time.?? also drives DME: Uses no DME to ambulate. Has a walker available, but does not use. Has a pulse ox ?Pt states no need for further DME at this time.?? HHC/SNF:?No hx of either. No needs identified. Pt wishes to return home and states has no concerns with going home at time of discharge.? Pt voices no concerns/needs at this time.? PLAN:?Home. Deyanira CALVO RN, CM?
--- NOTE | 2022-02-21 20:59 | EKG12_ITS ---
Test Reason : Blood Pressure : / mmHG Vent. Rate : 086 BPM Atrial Rate : 000 BPM P-R Int : 000 ms QRS Dur : 078 ms QT Int : 376 ms P-R-T Axes : 000 015 053 degrees QTc Int : 449 ms Sinus rhythm /Sinus Arrhythmia Abnormal ECG Confirmed by MALIK WOOD, GENO ([id number]), slot editor NEERAJ MEJIAS ([id number]) on 02/25/2022 8:56:18 AM Referred By: Confirmed By:GENO GAN MD
[2022-02-21] MEDS: Atorvastatin Calcium 20 MG Tablet PO (21:26)
[2022-02-21] MEDS: BALSALAZIDE DISODIUM 750 MG CAPSULE 2250 MG PO (21:27)
[2022-02-21] MEDS: guaiFENesin 600 MG Tablet PO (21:31)
[2022-02-22] VITALS (8 sets, daily range): BP systolic 126–135; BP diastolic 70–84; PULSE 54–63; RESP 14–18; TEMP 36.6–36.7; O2SAT 95–97
[2022-02-22 07:45] LABS: Absolute Lymphocyte Count 1.29 X10^3/uL (0.83-4.51); Absolute Neutrophil Count 2.3 X10^3/uL (2.0-7.7); Basophil# 0.03 X10^3/uL; Basophil% 0.6 % (0-1); Eosinophil# 0.29 X10^3/uL; Eosinophils% 6.1 % (0-5); Hematocrit 32.4 % (40-54); Hemoglobin 10.2 g/dL (13.0-16.5); Lymphocyte # 1.29 X10^3/ul (0.83-4.51); Lymphocyte % 27.3 % (19-41); Mean Corp Hgb Conc 31.5 g/dL (32-36); Mean Corpuscular Hgb 28.6 pg (27.0-32.0); Mean Corpuscular Volume 90.8 fL (80-94); Mean Platelet Vol. 9.2 fl (6.2-12.0); Monocyte# 0.85 X10^3/uL; NRBC Flagged by Analyzer 0 % (0-5); Neutrophil # 2.25 X10^3/uL (2.7-7.7); Neutrophil % 47.8 % (47-70); Platelet Count 259 K/mm3 (150-450); RBC Distribution Width SD 53.9 fl (35.1-43.9); Red Blood Count 3.57 M/mm3 (4.6-6.2); White Blood Count 4.7 K/mm3 (4.4-11.0)
--- NOTE | 2022-02-22 08:04 | PCM.PN.HOSP ---
Subjective Subjective Feels well. No chest pain. Objective Data Objective Data Vital Signs: Vital Signs Temp Pulse Resp BP Pulse Ox O2 Del Method O2 Flow Rate 36.6 C 55 L 18 130/74 H 97 Room Air 2 02/22/22 03:20 02/22/22 07:29 02/22/22 03:20 02/22/22 03:20 02/22/22 03:20 02/22/22 07:20 02/21/22 15:31 Oxygen Flow Rate (L/min) 2 Oxygen Delivery Method Room Air Weight: 70.6 kg Body Mass Index (BMI) 23.3 Intake & Output: Intake and Output for Last 24 Hours 02/20/22 02/21/22 02/22/22 23:59 23:59 23:59 Intake Total 2870.33 / 3070.33 200 / 200 Balance 2870.33 / 3070.33 200 / 200 Lab / Micro Data Result Diagrams: 02/22/22 05:05 02/22/22 05:05 Labs: Laboratory Results - last 24 hr 02/21/22 05:05: Phosphorus 2.9 02/21/22 07:35: Magnesium 2.0, Troponin I High Sens 38 02/21/22 10:52: Troponin I High Sens 66 02/22/22 05:05: WBC 4.7, RBC 3.57 L, Hgb 10.2 L, Hct 32.4 L, MCV 90.8, MCH 28.6, MCHC 31.5 L, RDW Std Deviation 53.9 H, RDW Coeff of Gaby 16.0 H, Plt Count 259, MPV 9.2, Immature Gran % (Auto) 0.200, Neut % (Auto) 47.8, Lymph % (Auto) 27.3, [place] % (Auto) 18.0 H, Eos % (Auto) 6.1 H, Baso % (Auto) 0.6, Absolute Neuts (auto) 2.3, Absolute Lymphs (auto) 1.29, Nucleated RBC % 0 Radiography Diagnostic Testing: Radiology Impression Echocardiogram 02/21/22 09:19 Interpretation Summary Mild concentric left ventricular hypertrophy. The left ventricular ejection fraction is 55 %. Unable to assess diastolic dysfunction due to arrhythmia. Mildly dilated right ventricle. The left atrium is severely enlarged. Moderate focal mitral valve calcification of the posterior leaflet. The inferior vena cava is dilated The study was technically difficult. Ordering Physician: Simon Lund Performed By: Tank Kay RCS Rhythm Strip Rhythm Strip: A-fib Rate: 152 Ectopy: None Physical Exam Const alert and no apparent distress HEENT head/scalp atraumatic and moist oral mucous membranes Resp normal respiratory effort and no retractions Cardio regular rate, regular rhythm, S1 normal heart sound and S2 normal heart sound GI normal to inspection, nondistended, normoactive bowel sounds, soft to palpation and non-tender Psych affect normal Assessment & Plan Assessment/Plan (1) Atrial fibrillation with rapid ventricular response: PLAN: A. fib with RVR, new onset: Patient is being admitted in PCU. He follows Dr. Miller. Patient started on metoprolol 25 mg twice daily and digoxin 0.5 mg IV 1 dose given in ED. Discontinue Cardizem drip as patient had hypotension. Patient is already on Eliquis 5 mg twice daily. Discussed with retail administrative assistant Dr. Marie and advised to repeat digoxin 0.25 mg IV after 6 hours and start low-dose Cardizem 30 mg every 6 hourly. 2d echo shos as EF of 55%. Heart rates been in the 50s and diltiazem has not been given since yesterday. Seems to be holding well with metoprolol which we will continue Follow-up with cardiology Anticoagulation with apixaban (2) Chest pressure: PLAN: Atypical chest pressure with history of coronary artery disease status post PCI with history of non-STEMI: Patient follows Dr. Miller last seen by MIRA Edgar in cardiology office in April 2021. Patient had PCI/stent in 2016 in [facility]. Patient on amlodipine. Currently, not on beta-liang or JESSICA/ARB but seems he was on metoprolol during last admission in 2016 for non-STEMI. Serial high-sensitivity troponins. Fasting profile ordered. Patient had last pharmacological nuclear stress test in January 2020 reported normal. Stress echo in July 2018 reported normal and negative for ischemia by EKG and echo criteria with EF 65% . PLAN: Plan Chronic conditions: COPD/emphysema: Patient follows in pulmonary clinic, last seen in May 2017. Patient was started on Breo Ellipta at that time but currently not seen in patient's home med list. PFT in April 2017 shows partially reversible moderate large airway obstructive ventilatory defect resulting in air trapping and hyperinflation, DLCO 73% predicted. TLC 124% predicted, FRC and RV elevated suggestive of emphysemaIncentive spirometry ordered. Continue Mucinex. DuoNeb as needed for shortness of breath/confusion History of DVT-continue Eliquis HTN -blood pressure is on lower side. Hold amlodipine Ulcerative colitis-on balsalazide. Dyslipidemia: On atorvastatin 20 mg daily.
[2022-02-22 08:18] LABS: AST(SGOT) 12 U/L (15-37); Alanine Aminotransfer ALT/SGPT 14 U/L (16-61); Albumin, Serum 2.9 g/dL (3.2-5.0); Alkaline Phosphatase 44 U/L (45-117); Anion Gap 4 (5-15); BUN 14 mg/dL (7-18); BUN/Creat Ratio 18.6 RATIO (10-20); Chloride 110 mmol/L (98-107); Cholesterol 74 mg/dL (200); Creatinine, Serum 0.75 mg/dL (0.70-1.30); EST Glomerular Filtration Rate 105 mL/min (>60); Est Glom Filt Rate - Afr Amer 127 mL/min (>60); Estimated Creatinine Clearance 54.15 ml/min; Glucose 90 mg/dL (74-106); High Density Lipoprotein 42 mg/dL; Protein, Total 5.9 g/dL (6.4-8.2); Sodium Level 139 mmol/L (136-145); Thyroid Stim Hormone (TSH) 1.37 uIU/mL (0.358-3.74); Triglycerides 38 mg/dL; Very Low Density Lipoprotein 8 mg/dL (5-40)
[2022-02-22] MEDS: guaiFENesin 600 MG Tablet PO (09:28)
[2022-02-22] MEDS: BALSALAZIDE DISODIUM 750 MG CAPSULE 2250 MG PO (09:28)
[2022-02-22] MEDS: Acetaminophen 325 MG Tablet 650 MG PO (09:28)
[2022-02-22] MEDS: APIXABAN 5 MG TABLET PO (09:29)
[2022-02-22] MEDS: Metoprolol Tartrate 25 MG Tablet PO (09:29)
[2022-02-22] MEDS: Aspirin E.C. 81 MG Tablet PO (09:29)
[2022-02-22] MEDS: Pantoprazole Sodium 40 MG Tablet PO (09:29)
--- NOTE | 2022-02-22 12:56 | DCINST_ITS ---
Discharge Instructions Diet Discharge Diet: Low fat / Low cholesterol Activity Discharge Activity: Return to Normal Activity Dressing / Incision Call your doctor if you observe: Shortness of breath, Chest pain and Increased palpitations (irregular heartbeat) Follow Up Care Test Results: Test results from this visit will be discussed in further detail at your follow- up appointment, if applicable. Discharge Plan Admission Admit Date/Time: 02/21/22 07:25 Primary Reason for Your Visit: atrial fibrillation Attending Provider: Eloy Roberts Primary Care Provider: Marcelo Mccullough [employer] Consult[employer] Providers: Simon Lund Discharge Orders/Prescriptions Prescriptions: New aspirin 81 mg Tablet,Delayed Release (Dr/Ec) 81 mg PO BREAKFAST Qty: 0 0RF metoprolol tartrate 25 mg Tablet 25 mg PO BID Qty: 60 0RF Continued nitroglycerin [Nitrostat] 0.4 mg tablet, sublingual 0.4 mg SUBLINGUAL Q5-15M PRN (Reason: Chest Pain) Eliquis 5 mg tablet 5 mg PO BID atorvastatin 20 mg tablet 20 mg PO QHS pantoprazole 40 mg tablet,delayed release (DR/EC) 40 mg PO DAILY dextromethorphan polistirex [Robitussin ER] 30 mg/5 mL suspension,extended rel 12 hr 10 ml PO Q12H PRN (Reason: Cough) acetaminophen [Tylenol] 325 mg tablet 650 mg PO Q6H PRN (Reason: Breakthrough Pain, Mild) guaifenesin [Mucinex] 600 mg tablet extended release 12hr 600 mg PO Q12H PRN (Reason: Cough) balsalazide 750 mg capsule 2,250 mg PO BID Rx Instructions: 750 mg PO 6 capsules per day; Discontinued amlodipine 5 mg tablet 5 mg PO DAILY Qty: 90 3RF Label Comments: TAKE 1 TABLET ORALLY ONCE PER DAY FOR 90 DAYS Referrals / Follow Up: [facility] [Provider Group] - 03/31/22 3:30 pm Marcelo Mccullough Chi, MD [Primary Care Provider] - Within 2 Weeks Disposition Disposition (needs filled in before D/C Order can be placed): Home, Self Care
--- NOTE | 2022-02-22 13:01 | DS.PCM_ITS ---
Providers Date of Admission: 02/21/22 Primary Care Physician: Dr. Marcelo Mccullough MD Reason For Visit: CHEST PRESSURE Diagnosis Discharge Diagnosis (1) Atrial fibrillation with rapid ventricular response: Status: Acute Code(s): I48.91 - Unspecified atrial fibrillation Plan: A. fib with RVR, new onset: Patient is being admitted in PCU. He follows Dr. Miller. Patient started on metoprolol 25 mg twice daily and digoxin 0.5 mg IV 1 dose given in ED. Discontinue Cardizem drip as patient had hypotension. Darci nt is already on Eliquis 5 mg twice daily. Discussed with supervisor fruit grading Dr. Marie and advised to repeat digoxin 0.25 mg IV after 6 hours and start low-dose Cardizem 30 mg every 6 hourly. 2d echo shos as EF of 55%. Heart rates been in the 50s and diltiazem has not been given since yesterday. Seems to be holding well with metoprolol which we will continue Follow-up with cardiology Anticoagulation with apixaban (2) Chest pressure: Status: Acute Code(s): R07.89 - Other chest pain Plan: Atypical chest pressure with history of coronary artery disease status post PCI with history of non-STEMI: Patient follows Dr. Miller last seen by MIRA Dimas in cardiology office in April 2021. Patient had PCI/stent in 2016 in [facility]. Patient on amlodipine. Currently, not on beta-liang or JESSICA/ARB but seems he was on metoprolol during last admission in 2016 for non-STEMI. Serial high-sensitivity troponins. Fasting profile ordered. Patient had last pharmacological nuclear stress test in January 2020 reported normal. Stress echo in July 2018 reported normal and negative for ischemia by EKG and echo criteria with EF 65% . Plan Chronic conditions: * COPD/emphysema: Patient follows in pulmonary clinic, last seen in May 2017. Patient was started on Breo Ellipta at that time but currently not seen in patient's home med list. PFT in April 2017 shows partially reversible moderate large airway obstructive ventilatory defect resulting in air trapping and hyperinflation, DLCO 73% predicted. TLC 124% predicted, FRC and RV elevated suggestive of emphysemaIncentive spirometry ordered. Continue Mucinex. DuoNeb as needed for shortness of breath/confusion * History of DVT-continue Eliquis * HTN -blood pressure is on lower side. Hold amlodipine * Ulcerative colitis-on balsalazide. * Dyslipidemia: On atorvastatin 20 mg daily. Medications at Discharge Home Medications nitroglycerin 0.4 mg sublingual tablet (Nitrostat) 0.4 mg sublingual Q5-15M PRN Chest Pain 04/06/17 apixaban 5 mg tablet (Eliquis) 5 mg PO BID blood thinner 12/16/17 atorvastatin 20 mg tablet 20 mg PO QHS cholesterol 11/03/18 balsalazide 750 mg capsule 2,250 mg PO BID stomach 07/11/19 pantoprazole 40 mg tablet,delayed release 40 mg PO DAILY stomach 01/26/20 acetaminophen 325 mg tablet (Tylenol) 650 mg PO Q6H PRN Breakthrough Pain, Mild 05/08/21 dextromethorphan polistirex 30 mg/5 mL oral susp ext.release 12hr (Robitussin ER) 10 ml PO Q12H PRN Cough 05/08/21 guaifenesin 600 mg tablet, extended release 12 hr (Mucinex) 600 mg PO Q12H PRN Cough 05/08/21 aspirin 81 mg tablet,delayed release 81 mg PO BREAKFAST #0 tabs 02/22/22 metoprolol tartrate 25 mg tablet 25 mg PO BID #60 tabs 02/22/22 Hospital Course Operations None Summary of Care Provided Minutes Spent on Discharge: 28 Weight / BMI Weight Weight: 70.6 kg Body Mass Index (BMI) 23.3 ABG / Lab / Microbiology Data Result Diagrams: 02/22/22 05:05 02/22/22 05:05 Laboratory: Laboratory Results - last 24 hr 02/22/22 05:05: WBC 4.7, RBC 3.57 L, Hgb 10.2 L, Hct 32.4 L, MCV 90.8, MCH 28.6, MCHC 31.5 L, RDW Std Deviation 53.9 H, RDW Coeff of Gaby 16.0 H, Plt Count 259, MPV 9.2, Immature Gran % (Auto) 0.200, Neut % (Auto) 47.8, Lymph % (Auto) 27.3, [place] % (Auto) 18.0 H, Eos % (Auto) 6.1 H, Baso % (Auto) 0.6, Absolute Neuts (auto) 2.3, Absolute Lymphs (auto) 1.29, Nucleated RBC % 0 02/22/22 05:05: Sodium 139, Potassium 4.0, Chloride 110 H, Carbon Dioxide 25.0, Anion Gap 4 L, BUN 14, Creatinine 0.75, Estim Creat Clear Calc 54.15, Est GFR (MDRD) Af Amer 127, Est GFR (MDRD) Non-Af 105, BUN/Creatinine Ratio 18.6, Glucose 90, Calcium 8.0 L, Total Bilirubin 1.50 H, AST 12 L, ALT 14 L, Alkaline Phosphatase 44 L, Total Protein 5.9 L, Albumin 2.9 L, Globulin 3.0, Albumin/G lobulin Ratio 1.0, Triglycerides 38, Cholesterol 74, LDL Cholesterol 24, VLDL Cholesterol 8, HDL Cholesterol 42, TSH 1.37 Radiography Diagnostic Testing: Radiology Impression Echocardiogram 02/21/22 09:19 Interpretation Summary Mild concentric left ventricular hypertrophy. The left ventricular ejection fraction is 55 %. Unable to assess diastolic dysfunction due to arrhythmia. Mildly dilated right ventricle. The left atrium is severely enlarged. Moderate focal mitral valve calcification of the posterior leaflet. The inferior vena cava is dilated The study was technically difficult. Ordering Physician: Simon Lund Performed By: Tank Kay RCS D/C Instructions Discharge Diet: Low fat / Low cholesterol Call your doctor if you observe: Shortness of breath, Chest pain and Increased palpitations (irregular heartbeat) Meaningful Use Info Meaningful Use Diagnoses (Choose all that apply): None applicable Discharge Plan Admission Admit Date/Time: 02/21/22 07:25 Primary Reason for Your Visit: atrial fibrillation Attending Provider: Eloy Roberts Primary Care Provider: Marcelo Mccullough Chi [employer] Providers: Simon Lund Discharge Orders/Prescriptions Prescriptions: New aspirin 81 mg Tablet,Delayed Release (Dr/Ec) 81 mg PO BREAKFAST Qty: 0 0RF metoprolol tartrate 25 mg Tablet 25 mg PO BID Qty: 60 0RF Continued nitroglycerin [Nitrostat] 0.4 mg tablet, sublingual 0.4 mg SUBLINGUAL Q5-15M PRN (Reason: Chest Pain) Eliquis 5 mg tablet 5 mg PO BID atorvastatin 20 mg tablet 20 mg PO QHS pantoprazole 40 mg tablet,delayed release (DR/EC) 40 mg PO DAILY dextromethorphan polistirex [Robitussin ER] 30 mg/5 mL suspension,extended rel 12 hr 10 ml PO Q12H PRN (Reason: Cough) acetaminophen [Tylenol] 325 mg tablet 650 mg PO Q6H PRN (Reason: Breakthrough Pain, Mild) guaifenesin [Mucinex] 600 mg tablet extended release 12hr 600 mg PO Q12H PRN (Reason: Cough) balsalazide 750 mg capsule 2,250 mg PO BID Rx Instructions: 750 mg PO 6 capsules per day; Discontinued amlodipine 5 mg tablet 5 mg PO DAILY Qty: 90 3RF Label Comments: TAKE 1 TABLET ORALLY ONCE PER DAY FOR 90 DAYS Referrals / Follow Up: [facility] [Provider Group] - 03/31/22 3:30 pm Marcelo Mccullough Chi, MD [Primary Care Provider] - Within 2 Weeks Disposition Disposition (needs filled in before D/C Order can be placed): Home, Self Care Charges/Coding Visit Charges Inpatient E&M: 61491 Disch Hosp
== END 2022-02-22 14:53 | disposition home or self-care (01) | DRG 309 ==
LOC: ED 07:39 → PCU 02-22 03:31
PROVIDERS: Admitting Provider Internal Medicine; Emergency Provider Emergency Medicine; PCP Family Medicine Geriatric Medicine
DX: I48.91 Unspecified atrial fibrillation (principal); J43.9 Emphysema, unspecified; K51.90 Ulcerative colitis, unspecified, without complications; E78.5 Hyperlipidemia, unspecified; I10 Essential (primary) hypertension; K21.9 Gastro-esophageal reflux disease without esophagitis; I25.10 Atherosclerotic heart disease of native coronary artery without angina pectoris; I25.2 Old myocardial infarction; Z82.3 Family history of stroke; Z79.01 Long term (current) use of anticoagulants; Z87.891 Personal history of nicotine dependence; Z86.718 Personal history of other venous thrombosis and embolism; Z79.899 Other long term (current) drug therapy; Z95.5 Presence of coronary angioplasty implant and graft; Z87.11 Personal history of peptic ulcer disease
CPT/HCPCS: 71045; 80053; 80061; 83690; 83735; 83880; 84100; 84443; 84484; 85025; 85610; 93005; 93306; 94762; 96361; 96365; 96366; 96375; 96376; 97162; 97165; 99221; 99251; 99252; 99285; J7030; J7120; Q9957; A4216; C8929; G0378; G0463

== ENCOUNTER → 2022-03-05 | Outpatient (CLI) | payer MEDICARE, OTHER, SELFPAY ==
[2016-10-05 13:30] VITALS: BMI 26.1
[2022-03-05 10:33] LABS: Absolute Lymphocyte Count 1.29 X10^3/uL (0.83-4.51); Absolute Neutrophil Count 3.3 X10^3/uL (2.0-7.7); Basophil# 0.02 X10^3/uL; Basophil% 0.3 % (0-1); Eosinophil# 0.32 X10^3/uL; Eosinophils% 5.4 % (0-5); Hematocrit 35.1 % (40-54); Lymphocyte # 1.29 X10^3/ul (0.83-4.51); Lymphocyte % 21.8 % (19-41); Mean Corp Hgb Conc 31.3 g/dL (32-36); Mean Corpuscular Hgb 28.5 pg (27.0-32.0); Mean Corpuscular Volume 90.9 fL (80-94); Mean Platelet Vol. 8.9 fl (6.2-12.0); Monocyte# 0.96 X10^3/uL; Monocyte% 16.2 % (0-10); NRBC Flagged by Analyzer 0 % (0-5); Platelet Count 257 K/mm3 (150-450); RBC Distribution Width CV 15.8 % (11.6-14.6); RBC Distribution Width SD 52.4 fl (35.1-43.9); Red Blood Count 3.86 M/mm3 (4.6-6.2); White Blood Count 5.9 K/mm3 (4.4-11.0)
[2022-03-05 11:09] LABS: Vitamin D,25 Hydroxy 25.3 ng/mL
[2022-03-05 11:47] LABS: ALB/GLOB Ratio 0.8 RATIO (0.9-2.4); AST(SGOT) 12 U/L (15-37); Alanine Aminotransfer ALT/SGPT 13 U/L (16-61); Albumin, Serum 3.2 g/dL (3.2-5.0); Alkaline Phosphatase 51 U/L (45-117); Anion Gap 4 (5-15); BUN 12 mg/dL (7-18); BUN/Creat Ratio 15.1 RATIO (10-20); Calcium,Total 8.9 mg/dL (8.5-10.1); Chloride 105 mmol/L (98-107); EST Glomerular Filtration Rate 99 mL/min (>60); Est Glom Filt Rate - Afr Amer 119 mL/min (>60); Globulin 4.1 g/dL (2.2-4.2); Glucose 103 mg/dL (74-106); Potassium 3.7 mmol/L (3.5-5.1); Protein, Total 7.3 g/dL (6.4-8.2); Sodium Level 138 mmol/L (136-145); Thyroid Stim Hormone (TSH) 1.15 uIU/mL (0.358-3.74)
== END | disposition home or self-care (01) ==
PROVIDERS: PCP Family Medicine Geriatric Medicine; Visit Provider Family Medicine Geriatric Medicine
DX: I10 Essential (primary) hypertension (principal); E55.9 Vitamin D deficiency, unspecified
CPT/HCPCS: 36415; 80053; 82306; 84443; 85025

== ENCOUNTER → 2022-05-22 | Outpatient (CLI) | payer MEDICARE, OTHER, SELFPAY ==
[2016-10-05 13:30] VITALS: BMI 26.1
--- NOTE | 2022-05-22 09:50 | RAD_ITS ---
STUDY: X-RAY - ESOPHAGUS (BARIUM SWALLOW) WITH FLUOROSCOPY REASON FOR EXAM: Male, 82 years old. WEIGHT LOSS/DYSPHAGIA TECHNIQUE: 25 view(s) of the esophagus were obtained following swallowing of barium. FLUOROSCOPY TIME (if supplied): (53 seconds) minutes/seconds. 19.83 mGy COMPARISON: Comparison is made with prior study November 13, 2020. FINDINGS: There is no demonstrated esophageal foreign body. There is no demonstrated stricture or mucosal abnormality. Small sliding nail hernia without gastroesophageal reflux at this time. The patient was unable to swallow the 12 mm tablet of barium. There is atherosclerotic calcification of the aortic arch with tortuosity of the descending aorta. Normal visualized pulmonary parenchyma. There are diffuse degenerative changes of the visualized thoracic spine. RAD/Esophagus Dual Contrast IMPRESSION: Small sliding hiatal hernia without gastroesophageal reflux. The patient was unable to swallow the 12 mm tablet of barium. Electronically Signed: Jayson Morales MD at 15:29 EST ,
== END | disposition home or self-care (01) ==
PROVIDERS: PCP Family Medicine Geriatric Medicine; Visit Provider Internal Medicine Gastroenterology
DX: R63.4 Abnormal weight loss (principal); R13.10 Dysphagia, unspecified
CPT/HCPCS: 74221

== ENCOUNTER → 2022-06-24 | Outpatient (CLI) | payer MEDICARE, OTHER, SELFPAY ==
[2016-10-05 13:30] VITALS: BMI 26.1
[2022-06-24 13:30] LABS: Absolute Lymphocyte Count 1.11 X10^3/uL (0.83-4.51); Absolute Neutrophil Count 2.7 X10^3/uL (2.0-7.7); Basophil# 0.03 X10^3/uL; Basophil% 0.6 % (0-1); Eosinophil# 0.28 X10^3/uL; Eosinophils% 5.6 % (0-5); Hematocrit 37.2 % (40-54); Hemoglobin 11.4 g/dL (13.0-16.5); Lymphocyte # 1.11 X10^3/ul (0.83-4.51); Lymphocyte % 22.3 % (19-41); Mean Corp Hgb Conc 30.6 g/dL (32-36); Mean Corpuscular Hgb 27.8 pg (27.0-32.0); Mean Corpuscular Volume 90.7 fL (80-94); Mean Platelet Vol. 9.1 fl (6.2-12.0); Monocyte# 0.83 X10^3/uL; Monocyte% 16.7 % (0-10); NRBC Flagged by Analyzer 0 % (0-5); Neutrophil # 2.72 X10^3/uL (2.7-7.7); Neutrophil % 54.6 % (47-70); Platelet Count 228 K/mm3 (150-450); RBC Distribution Width CV 17.2 % (11.6-14.6); RBC Distribution Width SD 57.4 fl (35.1-43.9)
[2022-06-24 13:40] LABS: Anion Gap 4 (5-15); BUN 13 mg/dL (7-18); BUN/Creat Ratio 16.5 RATIO (10-20); Calcium,Total 8.6 mg/dL (8.5-10.1); Chloride 104 mmol/L (98-107); Creatinine, Serum 0.79 mg/dL (0.70-1.30); EST Glomerular Filtration Rate 99 mL/min (>60); Est Glom Filt Rate - Afr Amer 120 mL/min (>60); Glucose 102 mg/dL (74-106); Potassium 3.8 mmol/L (3.5-5.1); Sodium Level 138 mmol/L (136-145)
== END | disposition home or self-care (01) ==
LOC: POLAB3 11:35
PROVIDERS: PCP Family Medicine Geriatric Medicine; Visit Provider Family Medicine Geriatric Medicine
DX: R63.4 Abnormal weight loss (principal)
CPT/HCPCS: 36415; 80048; 85025

== ENCOUNTER → 2022-07-01 | Outpatient (CLI) | payer MEDICARE, OTHER, SELFPAY ==
[2016-10-05 13:30] VITALS: BMI 26.1
--- NOTE | 2022-07-01 14:08 | PFTCOMP_ITS ---
COMPLETE PULMONARY FUNCTION TEST INTERPRETATION Brief HPI: Patient is an 82-year-old male, currently under the care of Dr. Mccullough, who presents to [facility] for complete pulmonary function tests secondary to diagnosis of chronic cough. Respiratory therapist reports good effort and reproducible results. Interpretation: Forced expiration spirometry shows a mild large airways obstructive ventilatory defect with an FEV1 of 74% predicted. There is a significant bronchodilator response in FVC by strict ATS criteria. Spirograms are of good quality and plateau slowly, indicating slowly emptying areas of the lungs. The respiratory flow volume loop shows decreased expiratory flow rates at all lung volumes consistent with airway obstruction. Lung volumes by body plethysmography show an elevated total lung capacity at 7.11 L, 146% predicted. FRC and RV are elevated out of proportion. Lung volume measurements are consistent with hyperinflation and air-trapping. Diffusion capacity by carbon monoxide is normal at 72% predicted. The airway resistance is elevated. Compared to previous pulmonary function tests from 05/11/2017, there is been a significant worsening in FEV1 and DLCO by 29% and 23% respectively. Impression: Partially reversible mild large airways obstructive ventilatory defect resulting in air trapping with hyperinflation and some worsening compared to 2018.
== END | disposition home or self-care (01) ==
LOC: PSN 10:13
PROVIDERS: PCP Family Medicine Geriatric Medicine; Visit Provider Family Medicine Geriatric Medicine
DX: R05.3 Chronic cough (principal)
CPT/HCPCS: 94060; 94726; 94729

== ENCOUNTER → 2022-09-03 | Outpatient (CLI) | payer MEDICARE, OTHER, SELFPAY ==
[2016-10-05 13:30] VITALS: BMI 26.1
[2022-09-03 12:13] LABS: Absolute Neutrophil Count 3.2 X10^3/uL (2.0-7.7); Basophil# 0.04 X10^3/uL; Basophil% 0.7 % (0-1); Eosinophil# 0.31 X10^3/uL; Eosinophils% 5.1 % (0-5); Hematocrit 36.8 % (40-54); Hemoglobin 11.5 g/dL (13.0-16.5); Lymphocyte % 24.9 % (19-41); Mean Corp Hgb Conc 31.3 g/dL (32-36); Mean Corpuscular Volume 92.7 fL (80-94); Mean Platelet Vol. 8.9 fl (6.2-12.0); Monocyte# 0.95 X10^3/uL; Monocyte% 15.8 % (0-10); NRBC Flagged by Analyzer 0 % (0-5); Neutrophil # 3.21 X10^3/uL (2.7-7.7); Neutrophil % 53.2 % (47-70); Platelet Count 275 K/mm3 (150-450); RBC Distribution Width CV 15.5 % (11.6-14.6); RBC Distribution Width SD 53.1 fl (35.1-43.9); Red Blood Count 3.97 M/mm3 (4.6-6.2)
[2022-09-03 12:41] LABS: Vitamin D,25 Hydroxy 35.8 ng/mL
[2022-09-03 13:05] LABS: ALB/GLOB Ratio 0.8 RATIO (0.9-2.4); AST(SGOT) 16 U/L (15-37); Alanine Aminotransfer ALT/SGPT 14 U/L (16-61); Albumin, Serum 3.3 g/dL (3.2-5.0); Alkaline Phosphatase 59 U/L (45-117); Anion Gap 5 (5-15); BUN 17 mg/dL (7-18); Calcium,Total 8.9 mg/dL (8.5-10.1); Chloride 108 mmol/L (98-107); Creatinine, Serum 0.89 mg/dL (0.70-1.30); EST Glomerular Filtration Rate 86 mL/min (>60); Est Glom Filt Rate - Afr Amer 104 mL/min (>60); Globulin 4.1 g/dL (2.2-4.2); Glucose 86 mg/dL (74-106); Protein, Total 7.4 g/dL (6.4-8.2); Sodium Level 139 mmol/L (136-145)
== END | disposition home or self-care (01) ==
LOC: LAB 11:32
PROVIDERS: PCP Family Medicine Geriatric Medicine; Referring Provider Family Medicine Geriatric Medicine; Visit Provider Family Medicine Geriatric Medicine
DX: I10 Essential (primary) hypertension (principal); E55.9 Vitamin D deficiency, unspecified
CPT/HCPCS: 36415; 80053; 82306; 84443; 85025

== ENCOUNTER 2022-10-26 08:55 | Emergency (ER) | payer MEDICARE, OTHER, SELFPAY ==
[2016-10-05 13:30] VITALS: BMI 26.1
[2022-10-26 08:56] VITALS: BP 154/71; PULSE 66; RESP 20; TEMP 35.5; O2SAT 96
--- NOTE | 2022-10-26 09:05 | EKG12_ITS ---
Test Reason : Blood Pressure : / mmHG Vent. Rate : 065 BPM Atrial Rate : 065 BPM P-R Int : 168 ms QRS Dur : 090 ms QT Int : 406 ms P-R-T Axes : 073 004 067 degrees QTc Int : 422 ms Normal sinus rhythm Normal ECG Confirmed by REFUGIO WOOD, ALIYAH ([id number]), make up editor ARNOLD AHUMADA ([id number]) on 11/02/2022 11:32:54 AM Referred By: DORON Confirmed By:CLOVER HUFF MD
--- NOTE | 2022-10-26 09:05 | RAD_ITS ---
STUDY: X-RAY CHEST REASON FOR EXAM: Male, 82 years old. Dyspnea, GAN, cough and wheezing TECHNIQUE: PA and lateral views of the chest. COMPARISON: Comparison is made with prior study dated February 21, 2022. FINDINGS: EKG electrodes are seen. There is hyperinflation of the lungs consistent with chronic obstructive lung disease (COPD). Stable calcified granulomas. Stable calcified bilateral pleural plaques. Normal size heart. Normal mediastinum and jenny. Normal visualized pulmonary arteries. There is atherosclerotic calcification of the aortic arch with tortuosity. There is demineralization of the osseous structures. Normal visualized ribs, clavicles, and shoulders. There is no demonstrated abnormality of the visualized soft tissue structures of the upper abdomen. RAD/Chest PA and Lateral IMPRESSION: Stable examination. Electronically Signed: Jayson Morales MD at 11:12 EDT ,
[2022-10-26 09:12] VITALS: PULSE 68; RESP 15; O2SAT 97
[2022-10-26 09:24] VITALS: PULSE 89; RESP 20
[2022-10-26] MEDS: Ipratropium/Albuterol Sulfate 3 ML AMPUL.NEB INHALATION (09:24)
[2022-10-26] MEDS: Albuterol 2.5 MG/3 ML VIAL.NEB. INHALATION ×3 (09:24)
--- NOTE | 2022-10-26 09:28 | ED.VIS.DYS ---
HPI History of Present Illness Chief Complaint: Shortness of Breath Detail of Chief Complaint: Exact onset is unknown since patient is not a good informant Informant: patient and family Onset/Context/Timing Onset: - (Unknown when it got worse from baseline.) Context: - (Unknown) Timing: Continuous Quality: Positive for Dyspnea on exertion; Negative for Orthopnea or PND Current Severity: Mild Maximum Severity: Severe Worsened by: Exertion; Not Worsened By Lying flat or Coughing Relieved by: Nothing Associated Symptoms cough; Negative for rhinorrhea, post nasal drip, ear pain, fever, sore throat, subjective, chills, sweats, clear sputum, white sputum, yellow sputum or green sputum Chest Pain: Positive for None Narrative Narrative: Patient is an elderly gentleman with history of COPD, GERD, hypercholesterolemia, DVT status post spine surgery 10 years ago and atrial fibrillation who is taking an oral anticoagulant, apixaban. Patient is a former smoker. He quit in . He denies orthopnea; however, he does sleep with 3 pillows. He states he sleeps with 3 pillows because of mucus drainage. He does endorse leg swelling. Uncertain when this started or if it got worse. According to son he has had shortness of breath for sometimes. It has recently gotten worse. Patient denies fever, chills night sweats. Patient denies headache, visual, ocular auditory symptoms. Patient denies chest discomfort. Patient denies PND. Patient denies abdominal pain, nausea, vomit or diarrhea. He denies melena or hematochezia. PE Risk Factors: Positive for Prior DVT or PE; Negative for Cancer, OCP + Smoking + > 35, Recent immobilization, Recent surgery or Recent travel Prior similar symptoms: Yes Recent Illness/Hospitalization: No PFSH PFSH Medical History Atherosclerosis of coronary artery of [place] heart without angina pectoris Bronchitis Cough Crohn disease DDD (degenerative disc disease) Deep vein thrombosis of left lower extremity (2012) Essential (primary) hypertension GERD (gastroesophageal reflux disease) Glaucoma Heartburn Hyperlipidemia Multiple allergies New onset a-fib Non-ST elevation (NSTEMI) myocardial infarction (10/03/16) PND (post-nasal drip) Prostate enlargement PUD (peptic ulcer disease) Skin cancer Stomach ulcer Unstable angina Home Medications nitroglycerin 0.4 mg sublingual tablet (Nitrostat) 0.4 mg sublingual Q5-15M PRN Chest Pain 04/06/17 [History Last Taken Unknown] apixaban 5 mg tablet (Eliquis) 5 mg PO BID blood thinner 12/16/17 [History Last Taken 02/20/22 22:00] atorvastatin 20 mg tablet 20 mg PO QHS cholesterol 11/03/18 [History Last Taken 02/20/22 22:00] balsalazide 750 mg capsule 2,250 mg PO BID stomach 07/11/19 [History Last Taken 02/20/22 22:00] pantoprazole 40 mg tablet,delayed release 40 mg PO DAILY stomach 01/26/20 [History Last Taken 02/20/22 09:00] acetaminophen 325 mg tablet (Tylenol) 650 mg PO Q6H PRN Breakthrough Pain, Mild 05/08/21 [History Last Taken Unknown] dextromethorphan polistirex 30 mg/5 mL oral susp ext.release 12hr (Robitussin ER) 10 ml PO Q12H PRN Cough 05/08/21 [History Last Taken Unknown] guaifenesin 600 mg tablet, extended release 12 hr (Mucinex) 600 mg PO Q12H PRN Cough 05/08/21 [History Last Taken Unknown] metoprolol tartrate 25 mg tablet 25 mg PO BID #180 tabs 03/24/22 [Rx Last Taken Unknown] albuterol sulfate 90 mcg/actuation aerosol inhaler (Ventolin HFA) 2 puff inhalation Q4H PRN PRN Wheezing ##1 10/26/22 [Rx Last Taken Unknown] prednisone 20 mg tablet 60 mg (3 x 20 mg) PO DAILY #12 TABLETS 10/26/22 [Rx Last Taken Unknown] Allergy/AdvReac Type Severity Reaction Status Date / Time ragweed pollen AdvReac Intermediate Nasal Verified 10/26/22 08:56 congestion Family History Father Heart disease Mother CVA (cerebral vascular accident) Surgical History H/O colonoscopy History of coronary artery stent placement (10/05/16) History of dental surgery (04/15/21) Previous back surgery Social History household members: spouse Smoking Status: Former smoker second hand exposure: No alcohol intake: never substance use type: does not use ROS ROS ED Constitutional Constitutional ED: Denies chills, fever(s), sweats or weight loss Eyes Eyes: Denies blurry vision, change in vision or diplopia ENT ENT ED: Denies ear pain, rhinorrhea or sore throat Cardiovascular Cardiovascular: Denies chest pain, orthopnea, palpitations, paroxysmal nocturnal dyspnea or racing heartbeat Respiratory/Chest Respiratory/Chest: Reports cough, dyspnea and dyspnea on exertion; Denies orthopnea or paroxysmal nocturnal dyspnea Gastrointestinal Gastrointestinal: Denies abdominal pain, constipation, diarrhea, melena, nausea or vomiting Genitourinary Genitourinary ED: Denies dysuria, hematuria or urinary frequency Musculoskeletal Musculoskeletal: Denies arthralgias, back pain, myalgias or neck pain Integumentary Denies abscess, Abrasions or rash Neurologic Neurologic: Denies headache(s) or paresthesias Endocrine Endocrinology: Denies cold intolerance or heat intolerance Hematologic/Lymphatic Hematologic/Lymphatic: Reports easy bruising EXAM Physical Exam Const Vital Signs: 10/26/22 08:56 10/26/22 09:05 10/26/22 09:12 Temperature 96 F L Temperature Source Temporal Pulse Rate 66 68 Respiratory Rate 20 H 15 Respiratory Effort Short of Breath Labored Respiratory Pattern Blood Pressure 154/71 H Blood Pressure Mean 98 Pulse Ox 96 97 Oxygen Delivery Method Room Air Room Air 10/26/22 09:24 Temperature Temperature Source Pulse Rate 89 Respiratory Rate 20 H Respiratory Effort Respiratory Pattern Normal Blood Pressure Blood Pressure Mean Pulse Ox Oxygen Delivery Method Positive well nourished and well developed Constitutional Narrative: Patient is tachypneic at rest breathing much more rapidly than 20 times documented by triage. General Appearance ED: well developed and pallor; Negative for NAD HEENT Reports dry mucous membranes HEENT Narrative: Head is atraumatic normocephalic. Ears are normal. Nares are patent. Posterior pharynx without erythema or exudate. Mucosa is moist. Mouth ED: Yes dry mucous membranes Mouth: dry mucous membranes Eyes PERRL and EOMs intact bilaterally General Eye ED: Negative for pale conjunctiva or scleral icterus Neck no lymphadenopathy, supple, no meningeal signs and no JVD Resp No normal respiratory effort and No clear to auscultation bilaterally Auscultation: rales bilateral base and wheezes expiratory wheezes and throughout Cardio regular rate, regular rhythm, S1 normal heart sound, S2 normal heart sound and no murmurs Rate: Negative for bradycardia or tachycardic GI non-tender, non-distended and no masses Auscultation: normoactive bowel sounds Palpation: soft Back/Spine no CVA tenderness and normal to inspection Extremity Extremity Narrative: There is bilateral swelling. There is no asymmetry. There is no discoloration. There are minor changes consistent with venous stasis dermatitis. There is no pain the patient distribution deep venous system. There is no palpable cords or leg vein distention. General Extremety ED: Yes edema General Extremity: edema Neuro oriented x3, CN's II-XII intact bilaterally and no sensory deficits noted Sensorium / Orientation: alert Speech: speech normal Motor Exam: strength 5/5 throughout Psych mental status grossly normal Skin no wounds General Skin Exam: pallor; Negative for jaundice MDM MDM MDM Narrative Medical decision making narrative: With patient having bilateral wheezing on expiration and cough will obtain chest x-ray to assess for pneumonia. Since are symmetric breath sounds doubt pneumothorax. Since patient is on anticoagulant and DVT was related to surgery PE is unlikely. With pedal edema history of atrial fibrillation need to evaluate for congestive heart failure. Since this has been going on for months doubt cardiac ischemia. Patient was informed his EKG is unremarkable. He is present receiving breathing treatments. 0938 Patient was reassessed at 1045. His breathing is no longer labored and he is not tachypneic. Patient has slight wheezing with forced expiration only. He was discharged with prescription for albuterol metered-dose inhaler and burst of prednisone. Lab Data Attestation: I reviewed the patient's lab results. Lab results narrative: CBC is remarkable for anemia. Patient has chronic anemia. BNP is 80.4, which is normal. Troponin is normal with symptoms for days to weeks. Labs: Laboratory Results - last 24 hr 10/26/22 09:35 WBC 4.1 L RBC 3.86 L Hgb 11.4 L Hct 34.6 L MCV 89.6 MCH 29.5 MCHC 32.9 RDW Std Deviation 50.1 H RDW Coeff of Gaby 15.2 H Plt Count 214 MPV 8.1 Immature Gran % (Auto) 0.200 Neut % (Auto) 52.0 Lymph % (Auto) 23.3 [place] % (Auto) 17.4 H Eos % (Auto) 6.4 H Baso % (Auto) 0.7 Absolute Neuts (auto) 2.1 Absolute Lymphs (auto) 0.95 Nucleated RBC % 0 Sodium 140 Potassium 3.7 Chloride 108 H Carbon Dioxide 28.0 Anion Gap 4 L BUN 14 Creatinine 0.87 Est GFR (MDRD) Af Amer 107 Est GFR (MDRD) Non-Af 89 BUN/Creatinine Ratio 16.1 Glucose 132 H Calcium 8.3 L Troponin I High Sens 5 B-Natriuretic Peptide 80.4 Radiography Chest X-Ray - ED: 2 View and Read by ED Physician (Independently reviewed and interpreted by me at 1033 as negative for any acute findings. There is chronic changes with hyperaeration. Cardiac silhouette size unremarkable. There is no effusion, infiltrate or evidence of congestive heart failure. Perihilar region is unremarkable. Osseous trucks ) EKG Initial EKG: Attestation: I personally reviewed and interpreted this EKG as follows: Interpretation: Sinus Rhythm (Rate is 65 and EKG is normal. [place] interval is 168 ms. Cures duration 90 ms for QT duration 406 ms. [place] is normal.) Differential Diagnosis Chest pain/SOB: pulmonary embolism Reason(s) PE less likely: Positive for not tachycardic, not hypoxic and patient taking oral anticoagulants, pneumothorax Reason(s) pneumothorax less likely: Positive for bilateral breath sounds and [employer] withhout PTX, pneumonia Reason(s) pneumonia less likely: Positive for no infiltrate on CXR, no elevation in WBC count, no noted fever and symptoms not consistent with acute infection, aortic dissection Reason(s) Aortic dissection less likely:: Positive for normal vascular exam, no history of HTN, normal neurological exam, no significant risk factors for dissection, no widened mediastinum on CXR, pain not sudden onset, no ripping/tearing pain, no pain to back and blood pressure appropriate in ED and CHF Reason(s) CHF less likely: Positive for no orthopnea, no evidence of fluid overload on CXR and BtNP not significantly elevated over normal/baseline Discharge Plan Triage Chief Complaint: Shortness of Breath ED Provider: Vito Fernandes Dx/Rx/DC Orders Clinical Impression: Dyspnea, Lymphedema of both lower extremities, Acute bronchospasm Prescriptions: New prednisone 20 mg tablet 60 mg PO DAILY Qty: 12 0RF albuterol sulfate [Ventolin HFA] 90 mcg/actuation HFA aerosol inhaler 2 puff inhalation Q4H PRN PRN (Reason: Wheezing) Qty: 1 0RF No Action nitroglycerin [Nitrostat] 0.4 mg tablet, sublingual 0.4 mg SUBLINGUAL Q5-15M PRN (Reason: Chest Pain) Eliquis 5 mg tablet 5 mg PO BID atorvastatin 20 mg tablet 20 mg PO QHS pantoprazole 40 mg tablet,delayed release (DR/EC) 40 mg PO DAILY dextromethorphan polistirex [Robitussin ER] 30 mg/5 mL suspension,extended rel 12 hr 10 ml PO Q12H PRN (Reason: Cough) acetaminophen [Tylenol] 325 mg tablet 650 mg PO Q6H PRN (Reason: Breakthrough Pain, Mild) guaifenesin [Mucinex] 600 mg tablet extended release 12hr 600 mg PO Q12H PRN (Reason: Cough) balsalazide 750 mg capsule 2,250 mg PO BID Rx Instructions: 750 mg PO 6 capsules per day; metoprolol tartrate 25 mg tablet 25 mg PO BID Qty: 180 3RF Primary Care Provider: Marcelo Mccullough Chi Referrals: Marcelo Mccullough Chi, MD [Primary Care Provider] - 3-5 Days Disposition Disposition: Home, Self Care
[2022-10-26] MEDS: MethylPREDNISolone 125 MG/2 ML Vial 60 MG IV (09:37)
[2022-10-26 09:45] LABS: Absolute Lymphocyte Count 0.95 X10^3/uL (0.83-4.51); Absolute Neutrophil Count 2.1 X10^3/uL (2.0-7.7); Basophil# 0.03 X10^3/uL; Basophil% 0.7 % (0-1); Eosinophil# 0.26 X10^3/uL; Eosinophils% 6.4 % (0-5); Hematocrit 34.6 % (40-54); Hemoglobin 11.4 g/dL (13.0-16.5); Lymphocyte # 0.95 X10^3/ul (0.83-4.51); Lymphocyte % 23.3 % (19-41); Mean Corp Hgb Conc 32.9 g/dL (32-36); Mean Corpuscular Hgb 29.5 pg (27.0-32.0); Mean Corpuscular Volume 89.6 fL (80-94); Mean Platelet Vol. 8.1 fl (6.2-12.0); Monocyte# 0.71 X10^3/uL; Monocyte% 17.4 % (0-10); NRBC Flagged by Analyzer 0 % (0-5); Neutrophil # 2.11 X10^3/uL (2.7-7.7); Platelet Count 214 K/mm3 (150-450); RBC Distribution Width CV 15.2 % (11.6-14.6); RBC Distribution Width SD 50.1 fl (35.1-43.9); Red Blood Count 3.86 M/mm3 (4.6-6.2); White Blood Count 4.1 K/mm3 (4.4-11.0)
[2022-10-26 10:07] LABS: BNP,B-Type NATRIURETIC PEPTIDE 80.4 pg/mL (0-100)
[2022-10-26 10:11] LABS: Anion Gap 4 (5-15); BUN 14 mg/dL (7-18); BUN/Creat Ratio 16.1 RATIO (10-20); Calcium,Total 8.3 mg/dL (8.5-10.1); Chloride 108 mmol/L (98-107); Creatinine, Serum 0.87 mg/dL (0.70-1.30); EST Glomerular Filtration Rate 89 mL/min (>60); Est Glom Filt Rate - Afr Amer 107 mL/min (>60); Glucose 132 mg/dL (74-106); Potassium 3.7 mmol/L (3.5-5.1); Sodium Level 140 mmol/L (136-145); Troponin-I HS 5 pg/mL (3.0-78.0)
[2022-10-26 10:55] VITALS: BP 134/104; PULSE 71; RESP 18; O2SAT 96
== END 2022-10-26 11:01 | disposition home or self-care (01) ==
PROVIDERS: Emergency Provider Emergency Medicine; PCP Family Medicine Geriatric Medicine; Visit Provider Emergency Medicine
DX: J98.01 Acute bronchospasm (principal); J44.9 Chronic obstructive pulmonary disease, unspecified; I48.91 Unspecified atrial fibrillation; I89.0 Lymphedema, not elsewhere classified; I10 Essential (primary) hypertension; E78.5 Hyperlipidemia, unspecified; I25.10 Atherosclerotic heart disease of native coronary artery without angina pectoris; I25.2 Old myocardial infarction; Z95.5 Presence of coronary angioplasty implant and graft; Z79.01 Long term (current) use of anticoagulants; Z79.899 Other long term (current) drug therapy; Z86.718 Personal history of other venous thrombosis and embolism; Z87.891 Personal history of nicotine dependence
CPT/HCPCS: 71046; 80048; 83880; 84484; 85025; 93005; 94640; 96374; 99284; A4216

== ENCOUNTER 2022-11-06 21:30 | Emergency (ER) | payer MEDICARE, OTHER, SELFPAY ==
[2016-10-05 13:30] VITALS: BMI 26.1
[2022-11-06 21:30] VITALS: BP 173/72; PULSE 69; RESP 18; TEMP 36.6; O2SAT 98; BMI 26.2
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
--- NOTE | 2022-11-06 21:45 | CT_ITS ---
STUDY: CT BRAIN WITHOUT CONTRAST REASON FOR EXAM: Male, 82 years old. Head injury RADIATION DOSAGE (If Supplied By Facility): CTDIvol = ( 44.99 ) mGy, DLP = ( 846.73 ) mGycm TECHNIQUE: Transaxial CT imaging of the brain was performed without administration of intravenous contrast material. Individualized dose optimization techniques were used for this CT. COMPARISON: No relevant priors. FINDINGS: Normal soft tissue structures. Normal calvarium. Prominent ventricles and extra-axial spaces with atrophy.. Normal white matter tracts of the cerebral hemispheres. Prominent perivascular space or old lacunar infarct in the left basal ganglia. Normal thalami. Normal brainstem. Normal cerebellum. There is no intracranial hemorrhage. There are no findings of an acute ischemic infarction. Mild mucosal thickening of the visualized paranasal sinuses. CT/Brain/Head without Contrast IMPRESSION: Age-related changes of the brain. Electronically Signed: Sidney Cano DO at 22:24 EDT ,
--- NOTE | 2022-11-06 21:45 | CT_ITS ---
STUDY: CT CERVICAL SPINE WITHOUT CONTRAST REASON FOR EXAM: Male, 82 years old. Neck pain RADIATION DOSAGE (If Supplied By Facility): CTDIvol = ( 19.99 ) mGy, DLP = ( 425.57 ) mGycm TECHNIQUE: High resolution transaxial imaging was performed without contrast material. Sagittal and coronal images were reconstructed. Individualized dose optimization techniques were used for this CT. COMPARISON: None FINDINGS: Normal craniovertebral junction. Normal anterior atlantoaxial articulation. Normal odontoid process. Normal cervical lordosis. Normal vertebral bodies and posterior osseous elements. C2-3: Normal endplates. Normal disc height and morphology. Normal central canal and intervertebral neuroforamina. C3-4: Mild spurring at the endplates. Normal disc height and morphology. Posterior spurring protruding kidney central canal. Facet hypertrophy and uncovertebral spurring narrowing the intervertebral neuroforamina. C4-5: Mild spurring at the endplates. Normal disc height and morphology. Normal central canal . Facet hypertrophy and uncovertebral spurring narrowing the right intervertebral neural foramen. C5-6: Spurring at the endplates. Narrowed disc height. Mild spurring protruding into the central canal. Uncovertebral spurring narrowing the intervertebral neuroforamina. C6-7: Spurring at the endplates. Narrowed disc height. Normal central canal. Uncovertebral spurring narrowing the intervertebral neuroforamina. C7-T1: Normal endplates. Normal disc height and morphology. Normal central canal and intervertebral neuroforamina. Normal visualized soft tissue structures. CT/Spine Cervical without Contras IMPRESSION: Degenerative changes of the cervical spine. Electronically Signed: Sidney Cano DO at 22:32 EDT Reading Location ID and State: [facility] / [place] Tel [phone], Service support ,
== END 2022-11-06 23:06 | disposition home or self-care (01) ==
LOC: ED 22:05
PROVIDERS: Emergency Provider Emergency Medicine; PCP Family Medicine Geriatric Medicine; Visit Provider Emergency Medicine
DX: S00.03XA Contusion of scalp, initial encounter (principal); I25.10 Atherosclerotic heart disease of native coronary artery without angina pectoris; E78.5 Hyperlipidemia, unspecified; I10 Essential (primary) hypertension; Z87.891 Personal history of nicotine dependence; Z86.718 Personal history of other venous thrombosis and embolism; Z79.01 Long term (current) use of anticoagulants; I25.2 Old myocardial infarction; Z85.828 Personal history of other malignant neoplasm of skin; Z79.899 Other long term (current) drug therapy; K21.9 Gastro-esophageal reflux disease without esophagitis; Z95.5 Presence of coronary angioplasty implant and graft; W01.198A Fall on same level from slipping, tripping and stumbling with subsequent striking against other object, initial encounter; Y93.89 Activity, other specified; Y92.89 Other specified places as the place of occurrence of the external cause
CPT/HCPCS: 70450; 72125; 99282

== ENCOUNTER 2022-11-11 03:28 | Observation (INO) | payer MEDICARE, OTHER, SELFPAY ==
[2016-10-05 13:30] VITALS: BMI 26.1
[2022-11-11] VITALS (37 sets, daily range): BP systolic 96–127; BP diastolic 52–89; PULSE 50–152; RESP 10–22; TEMP 36.3–37; O2SAT 14–100; BMI 27.6; BMI 26.1
--- NOTE | 2022-11-11 03:38 | RAD_ITS ---
INDICATION: chest pain EXAMINATION: Frontal view of the chest COMPARISON: Chest x-ray October 26, 2022. FINDINGS: Frontal view of the chest was obtained. The cardiac silhouette is not enlarged. Atelectasis in the lung bases bilaterally. No confluent airspace disease. No pneumothorax. Possible calcified pleural plaques. No acute fracture identified. RAD/Chest 1 View (Portable) IMPRESSION: Bibasilar atelectasis. Electronically Signed: Ruel Sanchez MD at 4:37 EDT ,
--- NOTE | 2022-11-11 03:40 | EKG12_ITS ---
Test Reason : Blood Pressure : / mmHG Vent. Rate : 072 BPM Atrial Rate : 072 BPM P-R Int : 174 ms QRS Dur : 088 ms QT Int : 408 ms P-R-T Axes : 076 004 039 degrees QTc Int : 446 ms Normal sinus rhythm with sinus arrhythmia Normal ECG When compared with ECG of 11-NOV-2022 03:31, MANUAL COMPARISON REQUIRED, DATA IS UNCONFIRMED Confirmed by HARJIT WOOD, VICENTE ([id number]), editor producer ARNOLD AHUMADA ([id number]) on 01/04/2023 1:14:30 PM Referred By: JOSSELINE Confirmed By:VICENTE LOMBARDI MD
[2022-11-11] MEDS: dilTIAZem 25 MG/5 ML Vial 15 MG IV BOLUS (03:44)
[2022-11-11] MEDS: 0.9% Normal Saline 1,000 ML 999 ML IV (03:45)
[2022-11-11 03:51] LABS: Absolute Neutrophil Count 2.8 X10^3/uL (2.0-7.7); Basophil# 0.03 X10^3/uL; Basophil% 0.4 % (0-1); Eosinophil# 0.37 X10^3/uL; Eosinophils% 5.3 % (0-5); Hematocrit 37.1 % (40-54); Lymphocyte % 27.3 % (19-41); Mean Corp Hgb Conc 32.3 g/dL (32-36); Mean Corpuscular Volume 89.6 fL (80-94); Monocyte# 1.89 X10^3/uL; Monocyte% 27.2 % (0-10); NRBC Flagged by Analyzer 0 % (0-5); Neutrophil # 2.75 X10^3/uL (2.7-7.7); Neutrophil % 39.5 % (47-70); POSITIVE DIFFERENTIAL YES; Platelet Count 247 K/mm3 (150-450); RBC Distribution Width CV 15.5 % (11.6-14.6); Red Blood Count 4.14 M/mm3 (4.6-6.2)
[2022-11-11 03:53] LABS: Differential Indicated SCAN CRITERIA MET
--- NOTE | 2022-11-11 03:59 | EDS_ITS ---
HPI History of Present Illness Chief Complaint: Chest Pain Informant: patient, family and EMS Narrative Narrative: Patient is an 82-year-old male with past medical history of hyperlipidemia coronary artery disease hypertension and paroxysmal atrial fibrillation. He was seen in February 2022 secondary to new onset A-fib. However patient's been on Eliquis for multiple years secondary to a chronic left leg DVT. Patient was able to convert to normal sinus rhythm and states he is typically in this. He states that he noticed some chest discomfort around 6 or 7 PM but that it seemed to improve not long after onset. He was able to go to bed and then awoke with chest discomfort. He states that he felt chest discomfort/pain but denies any palpitations or heart racing. He does state that he recently started Trelegy as a new medication but otherwise has been taking his chronic meds as directed. He states the symptoms would not resolve and therefore he called EMS. However upon arrival the patient does admit to resolution of his chest discomfort [facility] Medical History Anemia Atherosclerosis of coronary artery of [place] heart without angina pectoris Bronchitis Cough Crohn disease DDD (degenerative disc disease) Deep vein thrombosis of left lower extremity (2012) Essential (primary) hypertension GERD (gastroesophageal reflux disease) Glaucoma Heartburn Hyperlipidemia Multiple allergies New onset a-fib Non-ST elevation (NSTEMI) myocardial infarction (10/03/16) PND (post-nasal drip) Prostate enlargement PUD (peptic ulcer disease) Skin cancer Stomach ulcer Unstable angina Home Medications nitroglycerin 0.4 mg sublingual tablet (Nitrostat) 0.4 mg sublingual Q5-15M PRN Chest Pain 04/06/17 [History Last Taken Unknown] apixaban 5 mg tablet (Eliquis) 5 mg PO BID blood thinner 12/16/17 [History Last Taken 02/20/22 22:00] atorvastatin 20 mg tablet 20 mg PO QHS cholesterol 11/03/18 [History Last Taken 02/20/22 22:00] balsalazide 750 mg capsule 2,250 mg PO BID stomach 07/11/19 [History Last Taken 02/20/22 22:00] pantoprazole 40 mg tablet,delayed release 40 mg PO DAILY stomach 01/26/20 [History Last Taken 02/20/22 09:00] acetaminophen 325 mg tablet (Tylenol) 650 mg PO Q6H PRN Breakthrough Pain, Mild 05/08/21 [History Last Taken Unknown] dextromethorphan polistirex 30 mg/5 mL oral susp ext.release 12hr (Robitussin ER) 10 ml PO Q12H PRN Cough 05/08/21 [History Last Taken Unknown] guaifenesin 600 mg tablet, extended release 12 hr (Mucinex) 600 mg PO Q12H PRN Cough 05/08/21 [History Last Taken Unknown] albuterol sulfate 90 mcg/actuation aerosol inhaler (Ventolin HFA) 2 puff inhalation Q4H PRN PRN Wheezing ##1 10/26/22 [Rx Last Taken Unknown] amlodipine 5 mg tablet 5 mg PO DAILY 11/11/22 [History Last Taken Unknown] Allergy/AdvReac Type Severity Reaction Status Date / Time ragweed pollen AdvReac Intermediate Nasal Verified 11/11/22 03:28 congestion Family History Father Heart disease Mother CVA (cerebral vascular accident) Surgical History H/O colonoscopy History of coronary artery stent placement (10/05/16) History of dental surgery (04/15/21) Previous back surgery Social History household members: spouse Smoking Status: Former smoker second hand exposure: No alcohol intake: never substance use type: does not use ROS ROS ED Constitutional Constitutional ED: Denies chills or fever(s) ENT ENT ED: Denies sore throat Cardiovascular Cardiovascular: Reports chest pain; Denies palpitations or racing heartbeat Respiratory/Chest Respiratory/Chest: Denies cough or dyspnea Gastrointestinal Gastrointestinal: Denies abdominal pain, diarrhea, nausea or vomiting Genitourinary Genitourinary ED: Denies dysuria Musculoskeletal Musculoskeletal: Denies myalgias Integumentary Denies rash Neurologic Neurologic: Denies headache(s) Hematologic/Lymphatic Hematologic/Lymphatic: Reports easy bleeding and easy bruising EXAM Physical Exam Const Vital Signs: 11/11/22 03:29 11/11/22 04:23 11/11/22 04:29 Temperature 97.4 F L Temperature Source Temporal Pulse Rate 152 H 121 H 106 H Pulse Rate [1 (Initial Baseline)] Pulse Rate [3] Pulse Rate [4] Pulse Rate [6] Pulse Rate [7] Pulse Rate [8] Respiratory Rate 19 H 15 17 Respiratory Rate [1 (Initial Baseline)] Respiratory Rate [3] Respiratory Rate [4] Respiratory Rate [6] Respiratory Rate [7] Respiratory Rate [8] Blood Pressure 117/86 H 124/85 H 120/85 H Blood Pressure [1 (Initial Baseline)] Blood Pressure [3] Blood Pressure [4] Blood Pressure [6] Blood Pressure [7] Blood Pressure [8] Blood Pressure Mean 96 98 96 Pulse Ox 99 96 98 Oxygen Delivery Method Oxygen Delivery Method [1 (Initial Baseline)] 11/11/22 04:33 11/11/22 04:45 11/11/22 05:00 Temperature 97.6 F L Temperature Source Pulse Rate 96 103 H 108 H Pulse Rate [1 (Initial Baseline)] Pulse Rate [3] Pulse Rate [4] Pulse Rate [6] Pulse Rate [7] Pulse Rate [8] Respiratory Rate 22 H 20 H 18 Respiratory Rate [1 (Initial Baseline)] Respiratory Rate [3] Respiratory Rate [4] Respiratory Rate [6] Respiratory Rate [7] Respiratory Rate [8] Blood Pressure 114/65 111/77 96/62 Blood Pressure [1 (Initial Baseline)] Blood Pressure [3] Blood Pressure [4] Blood Pressure [6] Blood Pressure [7] Blood Pressure [8] Blood Pressure Mean 81 73 Pulse Ox 95 97 95 Oxygen Delivery Method Room Air Oxygen Delivery Method [1 (Initial Baseline)] 11/11/22 04:57 Temperature Temperature Source Pulse Rate Pulse Rate [1 (Initial Baseline)] 101 H Pulse Rate [3] 134 H Pulse Rate [4] 124 H Pulse Rate [6] 108 H Pulse Rate [7] 110 H Pulse Rate [8] 89 Respiratory Rate Respiratory Rate [1 (Initial Baseline)] 16 Respiratory Rate [3] 16 Respiratory Rate [4] 16 Respiratory Rate [6] 17 Respiratory Rate [7] 14 Respiratory Rate [8] 10 L Blood Pressure Blood Pressure [1 (Initial Baseline)] 118/87 H Blood Pressure [3] 96/62 Blood Pressure [4] 96/62 Blood Pressure [6] 127/85 H Blood Pressure [7] 123/76 H Blood Pressure [8] 109/79 Blood Pressure Mean Pulse Ox Oxygen Delivery Method Oxygen Delivery Method [1 (Initial Baseline)] Room Air Positive well nourished and well developed General Appearance ED: well developed; Negative for diaphoretic or pallor HEENT HEENT Narrative: Normocephalic atraumatic Eyes PERRL and EOMs intact bilaterally General Eye ED: Negative for scleral icterus Neck supple and no JVD Chest Wall palpation of chest normal Chest Narrative: No bony deformity or crepitus noted Resp normal respiratory effort Resp Narrative: Breath sounds are diminished throughout with consistent with past medical history however no acute signs of respiratory distress such as tachypnea or accessory muscle use or dyspnea with speech Cardio Rate: other Other Details: Irregularly irregular rhythm with tachycardic rate consistent with atrial fibrillation with rapid ventricular response Radial and carotid pulses are equal and symmetric GI normal to inspection, nondistended, normoactive bowel sounds, non-tender, non- distended and no masses GI Narrative: No voluntary guarding or rigidity. No pulsatile mass. No fluid wave noted Auscultation: normoactive bowel sounds Palpation: soft Extremity Extremity Narrative: +2 pitting edema to the bilateral lower extremities that is equal and symmetric and chronic per patient There is tenderness to palpation along the left calf but patient states this is also chronic and where he has his chronic DVT. Neuro oriented x3 and CN's II-XII intact bilaterally Sensorium / Orientation: alert Psych mental status grossly normal Skin no rashes or lesions noted General Skin Exam: Negative for jaundice or pallor MDM MDM MDM Narrative Medical decision making narrative: Patient presented to ER awake and alert with spontaneous resolution of his reported chest discomfort. Despite having resolution of pain he was found to be in A-fib with RVR going approximately 150 bpm. Patient is currently anticoagulated on Eliquis and does have a past medical history of paroxysmal A- fib but appears to have not been in this dysrhythmia since February 2022. Secondary to the A-fib with RVR a basic work-up was obtained. Labs revealed a slightly low potassium at 3.4 but otherwise no clinically significant finding. Chest x-ray did not show any lung pathology such as pneumonia pneumothorax or w idening the mediastinum. The patient was initially given a bolus of Cardizem which did help reduce his heart rate but this quickly wore off and his heart rate climbed back into the 130s to 140s. He was then medicated with 3 doses of 5 mg IV Lopressor which also help reduce his heart rate but only transiently. As the patient is anticoagulated on Eliquis and has a history of A-fib I did elect to perform a synchronized cardioversion based on his persistent tachycardia. The patient underwent conscious sedation with propofol. He was given a total of 30 mg. The patient then underwent synchronized cardioversion at 100 150 and twice at 360 J without successful cardioversion. Secondary to the persistent A-fib with RVR did discuss the case with cardiology on-call. They recommend potassium be replaced orally as is only down by 0.1. They also recommend patient be started on a diltiazem drip and admitted to the medical service. The case was then discussed with medicine on-call and they do agree to accept the patient at this time. As the patient is on Eliquis and has no chest pain upon arrival to the ER do not feel the need for a CTA of the chest History & Record Review Discussion w/independent historian: EMS personnel, Patient and Family Lab Data Attestation: I reviewed the patient's lab results. Labs: Laboratory Results - last 24 hr 11/11/22 03:40 WBC 7.0 RBC 4.14 L Hgb 12.0 L Hct 37.1 L MCV 89.6 MCH 29.0 MCHC 32.3 RDW Std Deviation 51.0 H RDW Coeff of Gaby 15.5 H Plt Count 247 MPV 9.0 Immature Gran % (Auto) 0.300 Neut % (Auto) 39.5 L Lymph % (Auto) 27.3 Wake % (Auto) 27.2 H Eos % (Auto) 5.3 H Baso % (Auto) 0.4 Absolute Neuts (auto) 2.8 Absolute Lymphs (auto) 1.90 Nucleated RBC % 0 Anisocytosis 1+ Sodium 141 Potassium 3.4 L Chloride 106 Carbon Dioxide 26.0 Anion Gap 9 BUN 15 Creatinine 0.91 Estim Creat Clear Calc 50.60 Est GFR (MDRD) Af Amer 101 Est GFR (MDRD) Non-Af 84 BUN/Creatinine Ratio 16.4 Glucose 130 H Calcium 8.7 Magnesium 1.9 TSH 2.35 Radiography Diagnostic Testing: Clinical Impression(s) from Imaging Studies Chest X-Ray 11/11/22 03:38 IMPRESSION: Bibasilar atelectasis. Electronically Signed: Ruel Sanchez MD at 4:37 EDT , Chest x-ray as interpreted by the emergency medicine physician reveals bibasilar atelectasis without acute infiltrate pneumothorax or widening of the mediastinum Management Discussion w/another healthcare provider: Hospitalist and Mat Worker Procedures Procedural Sedation 1 (Initial Baseline): Consent Signed: Yes Any Problems With Anesthesia: No You/Your family experience fever (hyperthermia) w/anesthesia: No Sedation medication: Propofol Dose: 30 Route: IV Maliampati Score: Class II ASA Classification: III Critical Care Time Critical Care Time: Yes Critical care time (excluding procedures): Discussing w/Patient &/or Family/Airport Maintenance Laborer, Discussing w/Consultants and - (Please note critical care time of 33 minutes) Discharge Plan Dx/Rx/DC Orders Clinical Impression: Current use of intermediate teacher anticoagulation, Atrial fibrillation with rapid ventricular response, Hypokalemia Disposition Disposition: Acute Care Hospital [facility] Discharge Date/Time: 11/11/22 06:09
[2022-11-11 04:04] LABS: Anisocytosis 1+
[2022-11-11 04:16] LABS: Anion Gap 9 (5-15); BUN 15 mg/dL (7-18); BUN/Creat Ratio 16.4 RATIO (10-20); Calcium,Total 8.7 mg/dL (8.5-10.1); Chloride 106 mmol/L (98-107); Creatinine, Serum 0.91 mg/dL (0.70-1.30); EST Glomerular Filtration Rate 84 mL/min (>60); Est Glom Filt Rate - Afr Amer 101 mL/min (>60); Glucose 130 mg/dL (74-106); Magnesium 1.9 mg/dL (1.6-2.6); Potassium 3.4 mmol/L (3.5-5.1); Sodium Level 141 mmol/L (136-145); Thyroid Stim Hormone (TSH) 2.35 uIU/mL (0.358-3.74)
[2022-11-11] MEDS: Metoprolol Tartrate 5 MG/5 ML Vial IV ×3 (04:22→04:32)
[2022-11-11] MEDS: Propofol 200 MG/20 ML Vial 20 MG IV BOLUS (04:58)
[2022-11-11] MEDS: Potassium Chloride Oral Tablet 20 MEQ PO (06:00)
--- NOTE | 2022-11-11 06:01 | HP.PCM.HOS_ITS ---
HPI - General General Date of Admission: 11/11/22 Date of Service: 11/11/22 Chief Complaint: Chest pain HPI Narrative IRWIN GONZALEZ, is a 82 M who presented to the emergency department at on 11/11/2022 complaining of chest pain. He reported that about 6 or 7 PM he had some chest pain that improved not long after onset and he went was able to go to bed and then awoke at about 3 AM with chest discomfort. He denied feeling any palpitations or that his heart was racing. With his chest pain he became concerned and decided to call EMS however upon their arrival his chest pain had resolved. In route he was noted to have heart rates as high as 180 and rate appear to be irregularly irregular. Upon arrival EKG showed A-fib with RVR. Patient was recently diagnosed with A-fib with RVR in February 2022. 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 He was seen by cardiology in May and was taking metoprolol 25 mg p.o. twice daily. His med reconciliation upon admission did not show that he was still on metoprolol. I discussed this with him and he is unclear why he is not taking metoprolol anymore. It is crossed off his med list but he is uncertain as to why this is or who discontinue the medication. Given the fact he is on chronic anticoagulation, the emergency department physician attempted cardioversion x3 but was unable to successfully cardiovert him back to normal sinus rhythm. He elected to try cardioversion after he was somewhat refractory to a Cardizem bolus and IV metoprolol. At the time of my evaluation he remained in A-fib with RVR however heart rates were anywhere from 90-120. At the time my evaluation patient was asymptomatic. Vital signs on presentation demonstrated temperature of 97.4, heart rate 152, blood pressure was 117/86, respiratory rate was 19 and oxygen saturation was 99% on room air. CBC shows chronic stable anemia with a hemoglobin of 12. He does have a monocytosis and eosinophilia on his CBC. His chemistry panel was overall unremarkable however did showed mild hypokalemia with potassium of 3.4 which was replaced in the emergency department and a glucose of 130. The patient does not have history of diabetes. His magnesium level was normal at 1.9. TSH was 2.35. EKG showed A-fib with RVR with normal intervals and slightly depressed ST-T wave segments that improved with improved heart rate. His chest x-ray was unremarkable for any acute findings. [facility] Medical History Anemia Atherosclerosis of coronary artery of [place] heart without angina pectoris Bronchitis Cough Crohn disease DDD (degenerative disc disease) Deep vein thrombosis of left lower extremity (2012) Essential (primary) hypertension GERD (gastroesophageal reflux disease) Glaucoma Heartburn Hyperlipidemia Multiple allergies New onset a-fib Non-ST elevation (NSTEMI) myocardial infarction (10/03/16) PND (post-nasal drip) Prostate enlargement PUD (peptic ulcer disease) Skin cancer Stomach ulcer Unstable angina Home Medications nitroglycerin 0.4 mg sublingual tablet (Nitrostat) 0.4 mg sublingual Q5-15M PRN Chest Pain 04/06/17 [History Last Taken Unknown] apixaban 5 mg tablet (Eliquis) 5 mg PO BID blood thinner 12/16/17 [History Last Taken 02/20/22 22:00] atorvastatin 20 mg tablet 20 mg PO QHS cholesterol 11/03/18 [History Last Taken 02/20/22 22:00] balsalazide 750 mg capsule 2,250 mg PO BID stomach 07/11/19 [History Last Taken 02/20/22 22:00] pantoprazole 40 mg tablet,delayed release 40 mg PO DAILY stomach 01/26/20 [History Last Taken 02/20/22 09:00] acetaminophen 325 mg tablet (Tylenol) 650 mg PO Q6H PRN Breakthrough Pain, Mild 05/08/21 [History Last Taken Unknown] dextromethorphan polistirex 30 mg/5 mL oral susp ext.release 12hr (Robitussin ER) 10 ml PO Q12H PRN Cough 05/08/21 [History Last Taken Unknown] guaifenesin 600 mg tablet, extended release 12 hr (Mucinex) 600 mg PO Q12H PRN Cough 05/08/21 [History Last Taken Unknown] albuterol sulfate 90 mcg/actuation aerosol inhaler (Ventolin HFA) 2 puff inhalation Q4H PRN PRN Wheezing ##1 10/26/22 [Rx Last Taken Unknown] amlodipine 5 mg tablet 5 mg PO DAILY 11/11/22 [History Last Taken Unknown] Allergy/AdvReac Type Severity Reaction Status Date / Time ragweed pollen AdvReac Intermediate Nasal Verified 11/11/22 03:28 congestion Family History Father Heart disease Mother CVA (cerebral vascular accident) Surgical History H/O colonoscopy History of coronary artery stent placement (10/05/16) History of dental surgery (04/15/21) Previous back surgery Social History household members: spouse Smoking Status: Former smoker second hand exposure: No alcohol intake: never substance use type: does not use ROS Constitutional Constitutional: Denies anorexia, change in weight, chills, fatigue, fever(s), malaise, night sweats, weakness or other Eyes Eyes: Denies blurry vision, change in eye color, change in vision, discharge from eye(s), double vision, erythema, eye pain, loss of vision or other ENT HEENT: Denies abnormal hearing, dysphagia, ear pain, epistaxis, headache(s), hearing loss, nasal congestion, nasal discharge, post nasal drip, sinus pressure, sore throat or other Cardiovascular Cardiovascular: Denies chest pain, claudication, dyspnea on exertion, edema, lightheadedness, orthopnea, palpitations, paroxysmal nocturnal dyspnea, rapid heart rate, syncope or other Respiratory/Chest Respiratory/Chest: Denies cough, dyspnea, excessive phlegm production, hemoptysis, productive cough, shortness of breath at rest, shortness of breath with exertion, wheezing or other Gastrointestinal Gastrointestinal: Denies abdominal pain, coffee ground emesis, constipation, diarrhea, dyspepsia, hematemesis, hematochezia, loose stools, melena, nausea, vomiting or other Genitourinary Genitourinary: Denies burning urination, difficulty urinating, dysuria, hematuria, nocturia, urinary frequency, urinary hesitancy, urinary incontinence, urinary urgency or other Musculoskeletal Musculoskeletal: Denies arthralgias, back pain, joint pain, joint stiffness, joint swelling, myalgias, neck pain or other Neurologic Neurologic: Denies abnormal gait, abnormal speech, confusion, disequilibrium, dizziness, focal weakness, headache(s), numbness, paresthesias, seizure-like activity, seizures, syncope, tingling, tremor(s) or other Psychiatric Psychiatric: Denies anxiety, depression, homicidal ideation, suicidal ideation or other Endocrine Endocrinology: Denies change in body appearance, cold intolerance, excessive sweating, heat intolerance, polydipsia, polyuria or other Allergic/Immunologic Allergic/Immunologic: Denies rhinitis, hives, eczemia, asthma or other Vital Signs Vital Signs Vital Signs: 11/11/22 03:29 11/11/22 04:23 11/11/22 04:29 Temperature 97.4 F L Temperature Source Temporal Pulse Rate 152 H 121 H 106 H Pulse Rate [1 (Initial Baseline)] Pulse Rate [3] Pulse Rate [4] Pulse Rate [6] Pulse Rate [7] Pulse Rate [8] Respiratory Rate 19 H 15 17 Respiratory Rate [1 (Initial Baseline)] Respiratory Rate [3] Respiratory Rate [4] Respiratory Rate [6] Respiratory Rate [7] Respiratory Rate [8] Blood Pressure 117/86 H 124/85 H 120/85 H Blood Pressure [1 (Initial Baseline)] Blood Pressure [3] Blood Pressure [4] Blood Pressure [6] Blood Pressure [7] Blood Pressure [8] Blood Pressure Mean 96 98 96 Pulse Ox 99 96 98 Oxygen Delivery Method Oxygen Delivery Method [1 (Initial Baseline)] 11/11/22 04:33 11/11/22 04:45 11/11/22 05:00 Temperature 97.6 F L Temperature Source Pulse Rate 96 103 H 108 H Pulse Rate [1 (Initial Baseline)] Pulse Rate [3] Pulse Rate [4] Pulse Rate [6] Pulse Rate [7] Pulse Rate [8] Respiratory Rate 22 H 20 H 18 Respiratory Rate [1 (Initial Baseline)] Respiratory Rate [3] Respiratory Rate [4] Respiratory Rate [6] Respiratory Rate [7] Respiratory Rate [8] Blood Pressure 114/65 111/77 96/62 Blood Pressure [1 (Initial Baseline)] Blood Pressure [3] Blood Pressure [4] Blood Pressure [6] Blood Pressure [7] Blood Pressure [8] Blood Pressure Mean 81 73 Pulse Ox 95 97 95 Oxygen Delivery Method Room Air Oxygen Delivery Method [1 (Initial Baseline)] 11/11/22 04:57 11/11/22 05:56 Temperature Temperature Source Pulse Rate 93 Pulse Rate [1 (Initial Baseline)] 101 H Pulse Rate [3] 134 H Pulse Rate [4] 124 H Pulse Rate [6] 108 H Pulse Rate [7] 110 H Pulse Rate [8] 89 Respiratory Rate Respiratory Rate [1 (Initial Baseline)] 16 Respiratory Rate [3] 16 Respiratory Rate [4] 16 Respiratory Rate [6] 17 Respiratory Rate [7] 14 Respiratory Rate [8] 10 L Blood Pressure 101/66 Blood Pressure [1 (Initial Baseline)] 118/87 H Blood Pressure [3] 96/62 Blood Pressure [4] 96/62 Blood Pressure [6] 127/85 H Blood Pressure [7] 123/76 H Blood Pressure [8] 109/79 Blood Pressure Mean 77 Pulse Ox Oxygen Delivery Method Oxygen Delivery Method [1 (Initial Baseline)] Room Air Weight Weight: 73.1 kg Body Mass Index (BMI) 27.6 Physical Exam Const alert, oriented x3, no apparent distress, average body habitus and well nourished Constitutional Narrative: Elderly white male sitting up in bed, family at bedside, patient appears comfortable and nontoxic General Appearance: cooperative HEENT normocephalic, head/scalp atraumatic, hearing grossly normal bilaterally and moist oral mucous membranes HEENT Narrative: Dentition is poor, Mallampati is 2, no thrush Eyes PERRL, EOMs intact bilaterally and conjunctivae normal Eyes Narrative: No scleral icterus Neck no lymphadenopathy, supple, no JVD and no carotid bruits Neck Narrative: Trachea midline, no thyroid enlargement Resp normal respiratory effort, no retractions, no use of accessory muscles and clear to auscultation bilaterally Resp Narrative: Diffusely diminished but clear Auscultation: Negative for rales, rhonchi or wheezes Cardio S1 normal heart sound, S2 normal heart sound, no murmurs, no rub, no gallops and no clicks; Negative for regular rate or regular rhythm Cardio Narrative: Mild tachycardia with irregularly irregular rhythm GI normal to inspection, nondistended, normoactive bowel sounds, soft to palpation and non-tender Extremity no clubbing, cyanosis or edema Extremity Narrative: Tenderness on medial left tibial region with an area of chronic discoloration and appears to have varicose veins Skin skin turgor normal, no jaundice, no petechiae and no mottling Skin Narrative: Abnormal as noted above but no other significant abnormalities noted Neuro oriented x3, CN's II-XII intact bilaterally, moves all extremities and no focal motor deficits Speech: speech normal Psych affect normal Psych Narrative: Very pleasant, interacts appropriately Results Lab / Micro Data Attestation: I reviewed the patient's lab results. 11/11/22 03:40 11/11/22 03:40 Labs: Laboratory Results - last 24 hr 11/11/22 03:40: WBC 7.0, RBC 4.14 L, Hgb 12.0 L, Hct 37.1 L, MCV 89.6, MCH 29.0, MCHC 32.3, RDW Std Deviation 51.0 H, RDW Coeff of Gaby 15.5 H, Plt Count 247, MPV 9.0, Immature Gran % (Auto) 0.300, Neut % (Auto) 39.5 L, Lymph % (Auto) 27.3, [place] % (Auto) 27.2 H, Eos % (Auto) 5.3 H, Baso % (Auto) 0.4, Absolute Neuts (au to) 2.8, Absolute Lymphs (auto) 1.90, Nucleated RBC % 0, Anisocytosis 1+, Sodium 141, Potassium 3.4 L, Chloride 106, Carbon Dioxide 26.0, Anion Gap 9, BUN 15, Creatinine 0.91, Estim Creat Clear Calc 50.60, Est GFR (MDRD) Af Amer 101, Est GFR (MDRD) Non-Af 84, BUN/Creatinine Ratio 16.4, Glucose 130 H, Calcium 8.7, Magnesium 1.9, TSH 2.35 Radiology Impression Chest X-Ray 11/11/22 03:38 IMPRESSION: Bibasilar atelectasis. Electronically Signed: Ruel Sanchez MD at 4:37 EDT , Assessment & Plan Assessment/Plan (1) Hypokalemia: (2) Atrial fibrillation with rapid ventricular response: (3) Chest pain: (4) Hyperglycemia: PLAN: Plan A-fib with RVR -DCC cardioversion attempted x3 in the emergency department without conversion -Echocardiogram from 2021 showed mild left concentric LVH, EF 55%, mildly dilated RV, severely dilated LA and moderate focal mitral valve calcification -I suspect it would be difficult to keep him in normal sinus rhythm with his severely dilated LA -Patient diagnosed with A-fib with RVR in February 2022 -Is on chronic apixaban for DVTs previously and now on for DVTs and A-fib with RVR--> YTA3PT3-DCWt score is 4 -Patient had been on metoprolol 25 mg p.o. twice daily at his last cardiology appointment on 06/08/2022 and this was continued at that time however it has since been discontinued but the patient is unclear as to who discontinued it and why they did so -Restart metoprolol 25 mg p.o. twice daily -Start Cardizem drip per cardiology's recommendations to ER physician -TSH was within normal limits -Continue home apixaban -Cardiology consultation Chest pain -Currently resolved -Mild ST depression noted with tachycardia however this is since resolved with improved heart rates -Troponin was not obtained on arrival and unfortunately patient has had cardioversion x3 so I would suspect his troponin will be elevated at this time therefore I will defer any cycling of his cardiac enzymes -Check echocardiogram to assess wall motion -I do suspect that his chest pain was likely related to his RVR Hyperglycemia -Patient does not have history of diabetes -Check hemoglobin A1c Hypokalemia -Patient given oral potassium in the emergency department -Repeat a.m. potassium -Check a.m. magnesium level CAD/HTN/HPL -PCI-TAMIKO-RCA 3 x 16 mm Promus Synergy TAMIKO 10/05/16 -Hold home amlodipine with reinitiation of metoprolol and utilization of Cardizem drip -Continue home atorvastatin History of DVT -Continue apixaban COPD -Remote history of tobacco abuse -PFTs done on 07/01/2022 showed an FEV1 of 74% predicted and partially reversible mild large airway obstructive ventilatory defect resulting in air trapping and hyperinflation -As needed albuterol is available GERD/peptic ulcer disease -Continue Protonix 40 mg daily Chronic anemia -Hemoglobin stable -Continue to monitor especially with full anticoagulation Chronic bronchitis/chronic cough -Continue home guaifenesin -Continue as needed dextromethorphan BPH -Patient takes no chronic medications -Monitor clinically DVT prophylaxis -Full anticoagulation with apixaban CODE STATUS -Full code is verified prior to admission Charges/Coding Visit Charges Inpatient E&M: 26062 Init Hosp L2
--- NOTE | 2022-11-11 06:19 | ECHOCS_ITS ---
Reason For Study: Chest Pain Procedure This was a 2D Doppler, Color Flow transthoracic echocardiogram. Contrast injection was performed. The study was technically difficult. Exam performed portable in patient room. Left Ventricle Normal size and thickness. The left ventricular ejection fraction is 65 %. Unable to assess diastolic dysfunction due to arrhythmia. Right Ventricle Normal right ventricle. Atria The left atrium is moderately enlarged. The right atrium is moderately enlarged. Mitral Valve Mild mitral annular calcification. Trivial mitral valve insufficiency. Tricuspid Valve Mild tricuspid valve insufficiency. Right ventricular systolic pressure estimated to be 40 mmHg. Aortic Valve Trisinus/trileaflet aortic valve. There is no aortic stenosis. No aortic valve insufficiency. Pulmonic Valve The pulmonic valve is not well visualized. Great Vessels The aortic root is not well visualized. Pericardium/Pleural No pericardial effusion. Medication Diluted definity 1ml given slow IV push to enhance endocardial definition. MMode/2D Measurements & Calculations LVIDd: 4.0 cm IVSd: 0.98 cm Ao root diam: 3.0 cm LVIDs: 2.5 cm LVPWd: 1.0 cm RVDd: 3.0 cm FS: 37.7 % LAV(MOD-bp): 32.7 ml LVAd ap4: 18.7 cm2 SV(MOD-sp4): 30.2 ml LAV(MOD-bp) Indexed: 18.3 ml/m2 LVLd ap4: 6.4 cm LAV(MOD-sp2): 34.7 ml EDV(MOD-sp4): 46.0 ml LAV(MOD-sp4): 29.8 ml EDV(sp4-el): 46.4 ml LVAs ap4: 9.4 cm2 LVLs ap4: 4.7 cm ESV(MOD-sp4): 15.8 ml ESV(sp4-el): 16.0 ml EF(MOD-sp4): 65.6 % EF(sp4-el): 65.6 % SV(sp4-el): 30.5 ml LA A4 area: 14.0 cm2 LA dimension(2D): 4.6 cm RA A4 area: 11.6 cm2 TAPSE: 2.2 cm Doppler Measurements & Calculations MV E max rob: 112.8 cm/sec Lat Peak E' Rob: 13.4 cm/sec Med Peak E' Rob: 11.2 cm/sec E/E' lat: 8.4 E/E' med: 10.1 Ao V2 max: 97.9 cm/sec LV V1 max: 75.4 cm/sec PA V2 max: 71.3 cm/sec Ao max P.8 mmHg LV V1 max P.3 mmHg Ao V2 mean: 74.9 cm/sec Ao mean P.4 mmHg Ao V2 VTI: 18.2 cm TR max rob: 253.4 cm/sec TR max P.7 mmHg ECHO/Echo Complete W/ Contrast Interpretation Summary The left ventricular ejection fraction is 65 %. The left atrium is moderately enlarged. The right atrium is moderately enlarged. Mild mitral annular calcification. Mild tricuspid valve insufficiency. Right ventricular systolic pressure estimated to be 40 mmHg. The study was technically difficult. Ordering Physician: Mariana Rich Referring Physician: Marcelo Mccullough Chi Performed By: Susanna Ku, JORY, RVT
--- NOTE | 2022-11-11 07:55 | PCM.PN.HOSP ---
Reason for Visit Reason for Visit: Diagnoses Hypokalemia (11/11/22) Unspecified atrial fibrillation (11/11/22) Chest pain, unspecified (11/11/22) Hyperglycemia, unspecified (11/11/22) Subjective Subjective atient is an 82-year-old gentleman admitted with chest pain diaphoresis as well as palpitations. Was found to be in A-fib with RVR on admission Objective Data Objective Data Vital Signs: Vital Signs Temp Pulse Resp BP Pulse Ox O2 Del Method 97.7 F L 111 H 18 107/74 97 Room Air 11/11/22 06:45 11/11/22 07:00 11/11/22 07:00 11/11/22 07:00 11/11/22 07:00 11/11/22 07:00 Oxygen Delivery Method [1 ( Room Air Initial Baseline)] Oxygen Delivery Method Room Air Weight: 71.2 kg Body Mass Index (BMI) 26.1 Intake & Output: Intake and Output for Last 24 Hours 11/09/22 11/10/22 11/11/22 23:59 23:59 23:59 Intake Total 1008.25 / 1008.25 Balance 1008.25 / 1008.25 Lab / Micro Data 11/11/22 03:40 11/11/22 03:40 Labs: Laboratory Results - last 24 hr 11/11/22 03:40: WBC 7.0, RBC 4.14 L, Hgb 12.0 L, Hct 37.1 L, MCV 89.6, MCH 29.0, MCHC 32.3, RDW Std Deviation 51.0 H, RDW Coeff of Gaby 15.5 H, Plt Count 247, MPV 9.0, Immature Gran % (Auto) 0.300, Neut % (Auto) 39.5 L, Lymph % (Auto) 27.3, [place] % (Auto) 27.2 H, Eos % (Auto) 5.3 H, Baso % (Auto) 0.4, Absolute Neuts (auto) 2.8, Absolute Lymphs (auto) 1.90, Nucleated RBC % 0, Anisocytosis 1+, Sodium 141, Potassium 3.4 L, Chloride 106, Carbon Dioxide 26.0, Anion Gap 9, BUN 15, Creatinine 0.91, Estim Creat Clear Calc 50.60, Est GFR (MDRD) Af Amer 101, Est GFR (MDRD) Non-Af 84, BUN/Creatinine Ratio 16.4, Glucose 130 H, Calcium 8.7, Magnesium 1.9, TSH 2.35 Radiography Diagnostic Testing: Radiology Impression Chest X-Ray 11/11/22 03:38 IMPRESSION: Bibasilar atelectasis. Electronically Signed: Ruel Sanchez MD at 4:37 EDT , Physical Exam Narrative GENERAL: cooperative HEENT: Atraumatic; normocephalic EYES; Anicteric, Normal Conjunctiva NECK; supple, normal thyroid, RESPIRATORY: Diminished to auscultation CARDIOVASCULAR: Regular S1 S2, GI: soft, normoactive bowel sounds, : No Renal angle tenderness; EXTREMITIES: No edema, no clubbing, MUSCULOSKELETAL: no muscle wasting NEURO: Awake; no lateralizing signs. SKIN: No Rash PSYCH; Flat affect Assessment & Plan Assessment/Plan (1) Atrial fibrillation with rapid ventricular response: PLAN: Plan Patient is an 82-year-old gentleman admitted with chest pain diaphoresis as well as palpitations. Was found to be in A-fib with RVR on admission 1. A-fib with RVR ? Patient underwent attempted 3 unsuccessful DC cardioversion in the emergency department subsequently started on Cardizem drip admitted to a monitored bed started on apixaban with consultation placed to cardiology 2. Hypokalemia -Corrected per protocol 3. Coronary artery disease ? With previous PCI with TAMIKO to the RCA lesion in 10/05/2016. Patient is currently on guideline directed medical therapy 4. History of DVT ? Patient is on apixaban 5. COPD ? Currently not in exacerbation aerosol treatment as needed 6. Hypertension - Blood pressure controlled, home medications continued with dose adjustment as needed 7. Dyslipidemia -Patient is on statin therapy, continued at home dose 8. GERD ? Patient is on PPI 9. BPH ? Currently not in any medications 10. Anemia - Secondary to chronic disorder monitoring H&H and transfuse if patient becomes symptomatic or hemoglobin falls below 7 11. DVT prophylaxis ? On apixaban Time spent in the patient's overall evaluation,decision-making process, review of diagnostic data, adjustment of management, discussion with other providers, nursing nursing and ancillary staff involved in patient's care documentation, 50 Minutes Charges/Coding Visit Charges Inpatient E&M: 37017 Subs Hosp L3
[2022-11-11 08:06] LABS: Hemoglobin A1c 6.6 % (3.8-5.6)
[2022-11-11] MEDS: APIXABAN 5 MG TABLET PO ×2 (10:29→21:05)
[2022-11-11] MEDS: Metoprolol Tartrate 25 MG Tablet PO (10:30)
[2022-11-11] MEDS: BALSALAZIDE DISODIUM 750 MG CAPSULE 2250 MG PO ×2 (10:30→21:04)
[2022-11-11] MEDS: Pantoprazole Sodium 40 MG Tablet PO (10:30)
[2022-11-11] MEDS: dilTIAZem CD 120 MG Capsule PO (10:30)
[2022-11-11] MEDS: 0.9% Saline Lock 10 ML Syringe IV (10:32)
--- NOTE | 2022-11-11 11:30 | CASEMGMT ---
JULIUS GARCIA Face to Face with patient and patient's son-in-law, Denzel (with patient's permission), for initial transition planning/care coordination assessment. RN CM introduced self and role at [facility]. Patient lying in bed, alert and oriented. Patient willing to participate in assessment and is able to answer all questions appropriately.? Care providers, pharmacy, and demographics verified. Patient wishes to discharge home, denies need for home health at this time.? Patient states he has no further needs or concerns at this time. CM to follow for discharge planning needs that may arise. PCP:Jamel Specialists: Paul (Cariologist), Joshua (Brick Chimney Builder), Sumeet (Marine Fuel Dock Attendant), and Srini (Fiber Design Engineer) Preferred Pharmacy:[facility] Insurance:[employer] [facility] Prescription Benefit:?Yes Living Will/HPOA:Patient states that he has filled out a living will and HCPOA but he does not know where they are or who is listed on them. His son-in-law states they will try to locate the documents and bring them in to medical records to be scanned in. LNOK:, Shirley Cordero, Daughter Emily Friedman, Son-in-law Denzel. Living Arrangements:Patient lives with his who has dementia in a two story home with bed and bath on the first floor and 4 steps and railing to enter the home. Patient states he is independent for all ADLs. Transportation: Self and son-in-law DME/HHC:Patient states he has a walker, grab bars and seat in the shower, a BP cuff, and pulse ox at home. He does not anticipate having need for additional DME at discharge. Patient denies any previous SNF and HHC. He does not anticipate a need for HHC at discharge. Disposition Plan:Patient to discharge home with family support and follow-up plans in place. Kaia CALVO, RN, CM
--- NOTE | 2022-11-11 13:58 | PCM.CONS.C ---
Assessment & Plan Assessment/Plan (1) Paroxysmal atrial fibrillation: PLAN: Spontaneously converted to normal sinus rhythm. Will start on amiodarone for maintenance of sinus rhythm. Stop metoprolol. On apixaban for prevention of thromboembolic phenomenon. (2) Chest pain: PLAN: Likely secondary to atrial fibrillation with rapid ventricular response. Patient had coronary angiography done in 2017 which showed nonobstructive disease. Consider Lexiscan stress Myoview as outpatient. (3) Coronary artery disease: PLAN: See #2 above. (4) Hypertension: PLAN: Blood pressure actually on the lower side today. Stop metoprolol. Monitor. (5) Dyslipidemia: PLAN: On atorvastatin. (6) History of DVT (deep vein thrombosis): PLAN: On apixaban. HPI Consult Data Date of Consult: 11/11/22 HPI Narrative Reason for Consultation: Atrial fibrillation HPI Narrative: This patient has past medical history significant for paroxysmal atrial fibrillation. He presented to the emergency room after he had some chest discomfort at home. The EMS noted him to be in atrial fibrillation with rapid ventricular response. His heart rate was noted to be as high as in the 180s. In the emergency room, he was given adenosine, then diltiazem and finally DC cardioversion was attempted however he continued to be in atrial fibrillation. Per patient, his chest discomfort has now resolved. It is noted that he has spontaneously converted to normal sinus rhythm earlier this morning. [facility] Medical History Anemia Atherosclerosis of coronary artery of [place] heart without angina pectoris Bronchitis Cough Crohn disease DDD (degenerative disc disease) Deep vein thrombosis of left lower extremity (2012) Essential (primary) hypertension GERD (gastroesophageal reflux disease) Glaucoma Heartburn Hyperlipidemia Multiple allergies New onset a-fib Non-ST elevation (NSTEMI) myocardial infarction (10/03/16) PND (post-nasal drip) Prostate enlargement PUD (peptic ulcer disease) Skin cancer Stomach ulcer Unstable angina Home Medications nitroglycerin 0.4 mg sublingual tablet (Nitrostat) 0.4 mg sublingual Q5-15M PRN Chest Pain 04/06/17 [History Last Taken Unknown] apixaban 5 mg tablet (Eliquis) 5 mg PO BID blood thinner 12/16/17 [History Last Taken 02/20/22 22:00] atorvastatin 20 mg tablet 20 mg PO QHS cholesterol 11/03/18 [History Last Taken 02/20/22 22:00] balsalazide 750 mg capsule 2,250 mg PO BID stomach 07/11/19 [History Last Taken 02/20/22 22:00] pantoprazole 40 mg tablet,delayed release 40 mg PO DAILY stomach 01/26/20 [History Last Taken 02/20/22 09:00] acetaminophen 325 mg tablet (Tylenol) 650 mg PO Q6H PRN Breakthrough Pain, Mild 05/08/21 [History Last Taken Unknown] dextromethorphan polistirex 30 mg/5 mL oral susp ext.release 12hr (Robitussin ER) 10 ml PO Q12H PRN Cough 05/08/21 [History Last Taken Unknown] guaifenesin 600 mg tablet, extended release 12 hr (Mucinex) 600 mg PO Q12H PRN Cough 05/08/21 [History Last Taken Unknown] albuterol sulfate 90 mcg/actuation aerosol inhaler (Ventolin HFA) 2 puff inhalation Q4H PRN PRN Wheezing ##1 10/26/22 [Rx Last Taken Unknown] amlodipine 5 mg tablet 5 mg PO DAILY 11/11/22 [History Last Taken Unknown] Allergy/AdvReac Type Severity Reaction Status Date / Time ragweed pollen AdvReac Intermediate Nasal Verified 11/11/22 03:28 congestion Family History Father Heart disease Mother CVA (cerebral vascular accident) Surgical History H/O colonoscopy History of coronary artery stent placement (10/05/16) History of dental surgery (04/15/21) Previous back surgery Social History household members: spouse Smoking Status: Former smoker second hand exposure: No alcohol intake: never substance use type: does not use Physical Exam Narrative Comfortable. No apparent distress. Heart sounds 1 and 2 noted. Chest diminished breath sounds bilaterally. No crepitations or rhonchi. Abdomen soft. Alert oriented x3. No ankle edema. Risk Stratification Risk Stratification Applicable: No Objective Data Vital Signs: Vital Signs Temp Pulse Resp BP Pulse Ox O2 Del Method 98.6 F 68 16 98/66 95 Room Air 11/11/22 11:59 11/11/22 11:45 11/11/22 11:59 11/11/22 11:59 11/11/22 11:59 11/11/22 11:59 Oxygen Delivery Method [1 ( Room Air Initial Baseline)] Oxygen Delivery Method Room Air Weight: 156 lb 15.506 oz Body Mass Index (BMI) 26.1 Intake & Output: Intake and Output for Last 24 Hours 11/09/22 11/10/22 11/11/22 23:59 23:59 23:59 Intake Total 1050.67 / 1050.67 Balance 1050.67 / 1050.67 Lab / Micro Data 11/11/22 03:40 11/11/22 03:40 Labs: Laboratory Results - last 24 hr 11/11/22 03:40: WBC 7.0, RBC 4.14 L, Hgb 12.0 L, Hct 37.1 L, MCV 89.6, MCH 29.0, MCHC 32.3, RDW Std Deviation 51.0 H, RDW Coeff of Gaby 15.5 H, Plt Count 247, MPV 9.0, Immature Gran % (Auto) 0.300, Neut % (Auto) 39.5 L, Lymph % (Auto) 27.3, [place] % (Auto) 27.2 H, Eos % (Auto) 5.3 H, Baso % (Auto) 0.4, Absolute Neuts (auto) 2.8, Absolute Lymphs (auto) 1.90, Nucleated RBC % 0, Anisocytosis 1+, Sodium 141, Potassium 3.4 L, Chloride 106, Carbon Dioxide 26.0, Anion Gap 9, BUN 15, Creatinine 0.91, Estim Creat Clear Calc 50.60, Est GFR (MDRD) Af Amer 101, Est GFR (MDRD) Non-Af 84, BUN/Creatinine Ratio 16.4, Glucose 130 H, Hemoglobin A1c 6.6 H, Calcium 8.7, Magnesium 1.9, TSH 2.35 Cardiology Labs/Tests 11/11/22 03:40: WBC 7.0, RBC 4.14 L, Hgb 12.0 L, Hct 37.1 L, MCV 89.6, MCH 29.0, MCHC 32.3, Plt Count 247, MPV 9.0, Immature Gran % (Auto) 0.300, Neut % (Auto) 39.5 L, Lymph % (Auto) 27.3, [place] % (Auto) 27.2 H, Eos % (Auto) 5.3 H, Baso % (Auto) 0.4, Absolute Neuts (auto) 2.8, Nucleated RBC % 0, Sodium 141, Potassium 3.4 L, Chloride 106, Carbon Dioxide 26.0, Anion Gap 9, BUN 15, Creatinine 0.91, Est GFR (MDRD) Af Amer 101, Est GFR (MDRD) Non-Af 84, BUN/Creatinine Ratio 16.4, Glucose 130 H, Hemoglobin A1c 6.6 H, Calcium 8.7, Magnesium 1.9 Rhythm: EKG: ECHO: Stress Test: Cardiac Cath: PCI: CT Surgery: Holter monitor: EPS: PPM: CXR: Chest CT Scan: Radiography Diagnostic Testing: Radiology Impression Chest X-Ray 11/11/22 03:38 IMPRESSION: Bibasilar atelectasis. Electronically Signed: Ruel Sanchez MD at 4:37 EDT , Echocardiogram 11/11/22 06:19 Interpretation Summary The left ventricular ejection fraction is 65 %. The left atrium is moderately enlarged. The right atrium is moderately enlarged. Mild mitral annular calcification. Mild tricuspid valve insufficiency. Right ventricular systolic pressure estimated to be 40 mmHg. The study was technically difficult. Ordering Physician: Mariana Rich Referring Physician: Marcelo Mccullough Chi Performed By: Susanna Ku, JORY, RVT
[2022-11-11] MEDS: Amiodarone 200 MG Tablet PO (15:17)
[2022-11-11] MEDS: Atorvastatin Calcium 20 MG Tablet PO (21:05)
[2022-11-11] MEDS: Acetaminophen 325 MG Tablet 650 MG PO (21:23)
[2022-11-11] MEDS: MELATONIN 3 MG TABLET PO (23:54)
[2022-11-12 03:03] VITALS: BP 127/68; PULSE 61; RESP 18; TEMP 36.6; O2SAT 95
[2022-11-12 05:44] LABS: Absolute Lymphocyte Count 1.11 X10^3/uL (0.83-4.51); Absolute Neutrophil Count 2.5 X10^3/uL (2.0-7.7); Basophil# 0.04 X10^3/uL; Basophil% 0.8 % (0-1); Eosinophil# 0.37 X10^3/uL; Eosinophils% 7.1 % (0-5); Hematocrit 33.5 % (40-54); Hemoglobin 10.7 g/dL (13.0-16.5); Lymphocyte # 1.11 X10^3/ul (0.83-4.51); Lymphocyte % 21.3 % (19-41); Mean Corp Hgb Conc 31.9 g/dL (32-36); Mean Corpuscular Hgb 28.9 pg (27.0-32.0); Mean Corpuscular Volume 90.5 fL (80-94); Mean Platelet Vol. 8.8 fl (6.2-12.0); Monocyte# 1.19 X10^3/uL; Monocyte% 22.8 % (0-10); NRBC Flagged by Analyzer 0 % (0-5); Neutrophil # 2.48 X10^3/uL (2.7-7.7); Neutrophil % 47.6 % (47-70); Platelet Count 202 K/mm3 (150-450); RBC Distribution Width CV 15.7 % (11.6-14.6); RBC Distribution Width SD 51.8 fl (35.1-43.9); White Blood Count 5.2 K/mm3 (4.4-11.0)
[2022-11-12 06:12] LABS: ALB/GLOB Ratio 0.7 RATIO (0.9-2.4); AST(SGOT) 24 U/L (15-37); Alanine Aminotransfer ALT/SGPT 13 U/L (16-61); Albumin, Serum 2.5 g/dL (3.2-5.0); Alkaline Phosphatase 45 U/L (45-117); Anion Gap 6 (5-15); BUN 11 mg/dL (7-18); BUN/Creat Ratio 14.9 RATIO (10-20); Calcium,Total 8.1 mg/dL (8.5-10.1); Chloride 109 mmol/L (98-107); Creatinine, Serum 0.74 mg/dL (0.70-1.30); EST Glomerular Filtration Rate 108 mL/min (>60); Est Glom Filt Rate - Afr Amer 130 mL/min (>60); Estimated Creatinine Clearance 47.83 ml/min; Globulin 3.4 g/dL (2.2-4.2); Glucose 112 mg/dL (74-106); Potassium 3.7 mmol/L (3.5-5.1); Protein, Total 5.9 g/dL (6.4-8.2); Sodium Level 140 mmol/L (136-145)
[2022-11-12 07:44] VITALS: O2SAT 97
--- NOTE | 2022-11-12 08:19 | PN.HOSP_ITS ---
Reason for Visit Reason for Visit: Diagnoses Hyperlipidemia, unspecified (11/11/22) Hypokalemia (11/11/22) Essential (primary) hypertension (11/11/22) Atherosclerotic heart disease of [place] coronary artery without angina pectoris (11/11/22) Paroxysmal atrial fibrillation (11/11/22) Unspecified atrial fibrillation (11/11/22) Chest pain, unspecified (11/11/22) Hyperglycemia, unspecified (11/11/22) Personal history of other venous thrombosis and embolism (11/11/22) Subjective Subjective Patient seen converted back to sinus rhythm the day prior. Plan for patient to be assessed for discharge. Objective Data Objective Data Vital Signs: Vital Signs Temp Pulse Resp BP Pulse Ox O2 Del Method 97.9 F 61 18 127/68 H 95 Room Air 11/12/22 03:03 11/12/22 03:03 11/12/22 03:03 11/12/22 03:03 11/12/22 03:03 11/12/22 03:03 Oxygen Delivery Method [1 ( Room Air Initial Baseline)] Oxygen Delivery Method Room Air Weight: 71.2 kg Body Mass Index (BMI) 26.1 Intake & Output: Intake and Output for Last 24 Hours 11/10/22 11/11/22 11/12/22 23:59 23:59 23:59 Intake Total Balance Lab / Micro Data 11/12/22 05:20 11/12/22 05:20 Labs: Laboratory Results - last 24 hr 11/12/22 05:20: WBC 5.2, RBC 3.70 L, Hgb 10.7 L, Hct 33.5 L, MCV 90.5, MCH 28.9, MCHC 31.9 L, RDW Std Deviation 51.8 H, RDW Coeff of Gaby 15.7 H, Plt Count 202, MPV 8.8, Immature Gran % (Auto) 0.400, Neut % (Auto) 47.6, Lymph % (Auto) 21.3, [place] % (Auto) 22.8 H, Eos % (Auto) 7.1 H, Baso % (Auto) 0.8, Absolute Neuts (auto) 2.5, Absolute Lymphs (auto) 1.11, Nucleated RBC % 0, Sodium 140, Potassium 3.7, Chloride 109 H, Carbon Dioxide 25.0, Anion Gap 6, BUN 11, Creatinine 0.74, Estim Creat Clear Calc 47.83, Est GFR (MDRD) Af Amer 130, Est GFR (MDRD) Non-Af 108, BUN/Creatinine Ratio 14.9, Glucose 112 H, Calcium 8.1 L, Phosphorus 3.0, Magnesium 2.0, Total Bilirubin 1.40 H, AST 24, ALT 13 L, Alkal ine Phosphatase 45, Total Protein 5.9 L, Albumin 2.5 L, Globulin 3.4, Albumin/Globulin Ratio 0.7 L Radiography Diagnostic Testing: Radiology Impression Echocardiogram 11/11/22 06:19 Interpretation Summary The left ventricular ejection fraction is 65 %. The left atrium is moderately enlarged. The right atrium is moderately enlarged. Mild mitral annular calcification. Mild tricuspid valve insufficiency. Right ventricular systolic pressure estimated to be 40 mmHg. The study was technically difficult. Ordering Physician: Mariana Rich Referring Physician: Marcelo Mccullough Chi Performed By: Susanna Ku RDCS, RVT Physical Exam Narrative GENERAL: cooperative HEENT: Atraumatic; normocephalic EYES; Anicteric, Normal Conjunctiva NECK; supple, normal thyroid, RESPIRATORY: Diminished to auscultation CARDIOVASCULAR: Regular S1 S2, GI: soft, normoactive bowel sounds, : No Renal angle tenderness; EXTREMITIES: No edema, no clubbing, MUSCULOSKELETAL: no muscle wasting NEURO: Awake; no lateralizing signs. SKIN: No Rash PSYCH; Flat affect Assessment & Plan Assessment/Plan (1) Atrial fibrillation with rapid ventricular response: PLAN: Plan Patient is an 82-year-old gentleman admitted with chest pain diaphoresis as well as palpitations. Was found to be in A-fib with RVR on admission 1. A-fib with RVR ? Patient underwent attempted 3 unsuccessful DC cardioversion in the emergency department subsequently started on Cardizem drip admitted to a monitored bed started on apixaban with consultation placed to cardiology ? Patient converted to sinus rhythm on Cardizem drip decision made to discharge patient a day following his admission 2. Hypokalemia -Corrected per protocol 3. Coronary artery disease ? With previous PCI with TAMIKO to the RCA lesion in 10/05/2016. Patient is currently on guideline directed medical therapy 4. History of DVT ? Patient is on apixaban 5. COPD ? Currently not in exacerbation aerosol treatment as needed 6. Hypertension - Blood pressure controlled, home medications continued with dose adjustment as needed 7. Dyslipidemia -Patient is on statin therapy, continued at home dose 8. GERD ? Patient is on PPI 9. BPH ? Currently not in any medications 10. Anemia - Secondary to chronic disorder monitoring H&H and transfuse if patient becomes symptomatic or hemoglobin falls below 7 11. DVT prophylaxis ? On apixaban Time spent in the patient's overall evaluation,decision-making process, review of diagnostic data, adjustment of management, discussion with other providers, nursing nursing and ancillary staff involved in patient's care documentation, 35 minutes Charges/Coding Visit Charges Inpatient E&M: 68359 Subs Hosp L2
[2022-11-12 09:00] VITALS: BP 110/57; PULSE 80; RESP 16; TEMP 36.4; O2SAT 97
[2022-11-12] MEDS: BALSALAZIDE DISODIUM 750 MG CAPSULE 2250 MG PO (10:20)
[2022-11-12] MEDS: Pantoprazole Sodium 40 MG Tablet PO (10:20)
--- NOTE | 2022-11-12 10:20 | PCM.DC.SUM ---
Providers Date of Admission: 11/11/22 Date of Discharge: 11/12/22 Primary Care Physician: Dr. Marcelo Mccullough MD Consultations 11/11/22 06:53 Consult: Cardiology Routine Consulting Provider: Leah Marie Reason for Consult: a-fib with RVR EMERGENT Consult: No MD Notified: Yes Date Notified: 11/11/22 Time Notified: 06:00 Method of Notification: Text Reason For Visit: AFIB WITH RVR Diagnosis Discharge Diagnosis (1) Atrial fibrillation with rapid ventricular response: Status: Acute Code(s): I48.91 - Unspecified atrial fibrillation Plan Patient is an 82-year-old gentleman admitted with chest pain diaphoresis as well as palpitations. Was found to be in A-fib with RVR on admission 1. A-fib with RVR ? Patient underwent attempted 3 unsuccessful DC cardioversion in the emergency department subsequently started on Cardizem drip admitted to a monitored bed started on apixaban with consultation placed to cardiology ? Patient converted to sinus rhythm on Cardizem drip decision made to discharge patient a day following his admission. Patient was started on amiodarone prescription written on discharge 2. Hypokalemia -Corrected per protocol 3. Coronary artery disease ? With previous PCI with TAMIKO to the RCA lesion in 10/05/2016. Patient is currently on guideline directed medical therapy 4. History of DVT ? Patient is on apixaban 5. COPD ? Currently not in exacerbation aerosol treatment as needed 6. Hypertension - Blood pressure controlled, home medications continued with dose adjustment as needed 7. Dyslipidemia -Patient is on statin therapy, continued at home dose 8. GERD ? Patient is on PPI 9. BPH ? Currently not in any medications 10. Anemia - Secondary to chronic disorder monitoring H&H and transfuse if patient becomes symptomatic or hemoglobin falls below 7 11. DVT prophylaxis ? On apixaban Time spent in the patient's overall evaluation,decision-making process, review of diagnostic data, adjustment of management, discussion with other providers, nursing nursing and ancillary staff involved in patient's care documentation, 35 minutes Medications at Discharge Home Medications nitroglycerin 0.4 mg sublingual tablet (Nitrostat) 0.4 mg sublingual Q5-15M PRN Chest Pain 04/06/17 apixaban 5 mg tablet (Eliquis) 5 mg PO BID blood thinner 12/16/17 atorvastatin 20 mg tablet 20 mg PO QHS cholesterol 11/03/18 balsalazide 750 mg capsule 2,250 mg PO BID stomach 07/11/19 pantoprazole 40 mg tablet,delayed release 40 mg PO DAILY stomach 01/26/20 acetaminophen 325 mg tablet (Tylenol) 650 mg PO Q6H PRN Breakthrough Pain, Mild 05/08/21 dextromethorphan polistirex 30 mg/5 mL oral susp ext.release 12hr (Robitussin ER) 10 ml PO Q12H PRN Cough 05/08/21 guaifenesin 600 mg tablet, extended release 12 hr (Mucinex) 600 mg PO Q12H PRN Cough 05/08/21 albuterol sulfate 90 mcg/actuation aerosol inhaler (Ventolin HFA) 2 puff inhalation Q4H PRN PRN Wheezing ##1 10/26/22 amlodipine 5 mg tablet 5 mg PO DAILY 11/11/22 amiodarone 200 mg tablet 200 mg PO DAILY #90 tabs 11/12/22 Hospital Course Summary of Care Provided Minutes Spent on Discharge: 35 Physical Exam Narrative GENERAL: cooperative HEENT: Atraumatic; normocephalic EYES; Anicteric, Normal Conjunctiva NECK; supple, normal thyroid, RESPIRATORY: Diminished to auscultation CARDIOVASCULAR: Regular S1 S2, GI: soft, normoactive bowel sounds, : No Renal angle tenderness; EXTREMITIES: No edema, no clubbing, MUSCULOSKELETAL: no muscle wasting NEURO: Awake; no lateralizing signs. SKIN: No Rash PSYCH; Flat affect Weight / BMI Weight Weight: 71.2 kg Body Mass Index (BMI) 26.1 ABG / Lab / Microbiology Data 11/12/22 05:20 11/12/22 05:20 Laboratory: Laboratory Results - last 24 hr 11/12/22 05:20: WBC 5.2, RBC 3.70 L, Hgb 10.7 L, Hct 33.5 L, MCV 90.5, MCH 28.9, MCHC 31.9 L, RDW Std Deviation 51.8 H, RDW Coeff of Gaby 15.7 H, Plt Count 202, MPV 8.8, Immature Gran % (Auto) 0.400, Neut % (Auto) 47.6, Lymph % (Auto) 21.3, [place] % (Auto) 22.8 H, Eos % (Auto) 7.1 H, Baso % (Auto) 0.8, Absolute Neuts (auto) 2.5, Absolute Lymphs (auto) 1.11, Nucleated RBC % 0, Sodium 140, Potassium 3.7, Chloride 109 H, Carbon Dioxide 25.0, Anion Gap 6, BUN 11, Creatinine 0.74, Estim Creat Clear Calc 47.83, Est GFR (MDRD) Af Amer 130, Est GFR (MDRD) Non-Af 108, BUN/Creatinine Ratio 14.9, Glucose 112 H, Calcium 8.1 L, Phosphorus 3.0, Magnesium 2.0, Total Bilirubin 1.40 H, AST 24, ALT 13 L, Alkaline Phosphatase 45, Total Protein 5.9 L, Albumin 2.5 L, Globulin 3.4, Albumin/Globulin Ratio 0.7 L Radiography Diagnostic Testing: Radiology Impression Echocardiogram 11/11/22 06:19 Interpretation Summary The left ventricular ejection fraction is 65 %. The left atrium is moderately enlarged. The right atrium is moderately enlarged. Mild mitral annular calcification. Mild tricuspid valve insufficiency. Right ventricular systolic pressure estimated to be 40 mmHg. The study was technically difficult. Ordering Physician: Mariana Rich Referring Physician: Marcelo Mccullough Chi Performed By: Susanna Ku, JORY, RVT D/C Instructions Discharge Diet: No restrictions Discharge Activity: Return to Normal Activity Call your doctor if you observe: Fever of 101 or Higher, Shortness of breath, Fainting spells and Chest pain Meaningful Use Info Meaningful Use Diagnoses (Choose all that apply): None applicable Discharge Plan Admission Admit Date/Time: 11/11/22 05:42 Attending Provider: Jaime Nuñez Primary Care Provider: Marcelo Mccullough Chi Consulting Providers: Leah Marie; Mariana Rich Discharge Orders/Prescriptions Prescriptions: New amiodarone 200 mg Tablet 200 mg PO DAILY Qty: 90 0RF Continued nitroglycerin [Nitrostat] 0.4 mg tablet, sublingual 0.4 mg SUBLINGUAL Q5-15M PRN (Reason: Chest Pain) Eliquis 5 mg tablet 5 mg PO BID atorvastatin 20 mg tablet 20 mg PO QHS pantoprazole 40 mg tablet,delayed release (DR/EC) 40 mg PO DAILY dextromethorphan polistirex [Robitussin ER] 30 mg/5 mL suspension,extended rel 12 hr 10 ml PO Q12H PRN (Reason: Cough) acetaminophen [Tylenol] 325 mg tablet 650 mg PO Q6H PRN (Reason: Breakthrough Pain, Mild) guaifenesin [Mucinex] 600 mg tablet extended release 12hr 600 mg PO Q12H PRN (Reason: Cough) balsalazide 750 mg capsule 2,250 mg PO BID Rx Instructions: 750 mg PO 6 capsules per day; albuterol sulfate [Ventolin HFA] 90 mcg/actuation HFA aerosol inhaler 2 puff inhalation Q4H PRN PRN (Reason: Wheezing) Qty: 1 0RF amlodipine 5 mg tablet 5 mg PO DAILY Patient Comments: TAKE 1 TABLET BY MOUTH DAILY Referrals / Follow Up: Marcelo Mccullough Chi, MD [Primary Care Provider] - Within 1 Week Disposition Disposition (needs filled in before D/C Order can be placed): Home, Self Care Charges/Coding Visit Charges Inpatient E&M: 31926 Disch Hosp >30min
[2022-11-12] MEDS: 0.9% Saline Lock 10 ML Syringe IV (10:21)
[2022-11-12] MEDS: APIXABAN 5 MG TABLET PO (10:21)
[2022-11-12] MEDS: Amiodarone 200 MG Tablet PO (10:23)
--- NOTE | 2022-11-12 11:07 | CASEMGMT ---
Patient had order for discharge. RN CM in to inquire about needs at discharge. Patient denies needs at discharge. Patient and son had no further questions or concerns.
--- NOTE | 2022-11-12 11:59 | PHA.DC.MC.R ---
Pharmacy [facility] has performed discharge medication reconciliation and counseling for this patient. The patient was counseled on the following discharge medications and changes in medications for homegoing were reviewed. 1. AMIODARONE The Reason for Use, instructions for use, and potential side effects were reviewed for all new medications. The patient's questions regarding all of their medications were answered. The patient was able to verbally demonstrate an understanding of their discharge medications. The patient's discharge medication list was reviewed for discrepancies and discrepancies were resolved. Patient counselled by Penny Waite PharmD Candidate Medications at Discharge Home Medications nitroglycerin 0.4 mg sublingual tablet (Nitrostat) 0.4 mg sublingual Q5-15M PRN Chest Pain 04/06/17 apixaban 5 mg tablet (Eliquis) 5 mg PO BID blood thinner 12/16/17 atorvastatin 20 mg tablet 20 mg PO QHS cholesterol 11/03/18 balsalazide 750 mg capsule 2,250 mg PO BID stomach 07/11/19 pantoprazole 40 mg tablet,delayed release 40 mg PO DAILY stomach 01/26/20 acetaminophen 325 mg tablet (Tylenol) 650 mg PO Q6H PRN Breakthrough Pain, Mild 05/08/21 dextromethorphan polistirex 30 mg/5 mL oral susp ext.release 12hr (Robitussin ER) 10 ml PO Q12H PRN Cough 05/08/21 guaifenesin 600 mg tablet, extended release 12 hr (Mucinex) 600 mg PO Q12H PRN Cough 05/08/21 albuterol sulfate 90 mcg/actuation aerosol inhaler (Ventolin HFA) 2 puff inhalation Q4H PRN PRN Wheezing ##1 10/26/22 amlodipine 5 mg tablet 5 mg PO DAILY 11/11/22 amiodarone 200 mg tablet 200 mg PO DAILY #90 tabs 11/12/22
[2022-11-12 12:40] VITALS: BP 112/62; PULSE 76; RESP 18; TEMP 36.7; O2SAT 98
== END 2022-11-12 12:44 | disposition home or self-care (01) | DRG 310 ==
LOC: ED 04:42 → PCU 07:10
PROVIDERS: Admitting Provider Internal Medicine; Emergency Provider Emergency Medicine; PCP Family Medicine Geriatric Medicine; Visit Provider Internal Medicine
DX: I48.0 Paroxysmal atrial fibrillation (principal); J44.9 Chronic obstructive pulmonary disease, unspecified; D63.8 Anemia in other chronic diseases classified elsewhere; I10 Essential (primary) hypertension; E78.5 Hyperlipidemia, unspecified; E87.6 Hypokalemia; K21.9 Gastro-esophageal reflux disease without esophagitis; I25.10 Atherosclerotic heart disease of native coronary artery without angina pectoris; Z95.5 Presence of coronary angioplasty implant and graft; Z87.891 Personal history of nicotine dependence; R73.9 Hyperglycemia, unspecified; Z79.01 Long term (current) use of anticoagulants; Z86.718 Personal history of other venous thrombosis and embolism; Z79.899 Other long term (current) drug therapy; N40.0 Benign prostatic hyperplasia without lower urinary tract symptoms
CPT/HCPCS: C8929; 36415; 71045; 80048; 80053; 83036; 83735; 84100; 84443; 85025; 92960; 93005; 93306; 94668; 96365; 96366; 96375; 96376; 99152; 99221; 99285; J7030; Q9957; A4216; G0378; J0153

== ENCOUNTER 2023-01-18 03:34 | Emergency (ER) | payer MEDICARE, OTHER, SELFPAY ==
[2016-10-05 13:30] VITALS: BMI 26.1
[2023-01-18 03:35] VITALS: BP 165/72; PULSE 67; RESP 18; TEMP 36.3; O2SAT 94; BMI 27.3
--- NOTE | 2023-01-18 03:35 | RAD_ITS ---
EXAM: XR CHEST, 1 VIEW CLINICAL INDICATION: chest pain TECHNIQUE: Frontal view of the chest. COMPARISON: Single view chest 11/11/2022 FINDINGS: LUNGS AND PLEURAL SPACES: Mild left basilar airspace disease. No pneumothorax. No effusion. HEART: Unremarkable. Cardiac silhouette not enlarged. MEDIASTINUM: Central airways and mediastinal contour are unremarkable. BONES/JOINTS: Unremarkable. SOFT TISSUES: Unremarkable. RAD/Chest 1 View (Portable) IMPRESSION: Mild left basilar airspace disease. Findings may indicate atelectasis or infection. Electronically Signed: Aki Badillo MD at 4:10 EDT ,
--- NOTE | 2023-01-18 03:35 | EKG12_ITS ---
Test Reason : CP Blood Pressure : / mmHG Vent. Rate : 066 BPM Atrial Rate : 066 BPM P-R Int : 164 ms QRS Dur : 090 ms QT Int : 454 ms P-R-T Axes : 073 -19 050 degrees QTc Int : 475 ms Normal sinus rhythm Normal ECG Confirmed by HARJIT WOOD, VICENTE ([id number]), index editor SHANELLE CUMMINGS ([id number]) on 01/19/2023 11:59:14 AM Referred By: Confirmed By:VICENTE LOMBARDI MD
--- NOTE | 2023-01-18 03:50 | ED.VIS.CHEST ---
HPI History of Present Illness Chief Complaint: Chest Pain Narrative Narrative: Patient presents with chest discomfort and some fluttering in his chest. He has a history of A-fib. He is anticoagulated on Eliquis. He did have a eventful night last night, he was celebrating his 63th wedding anniversary. He has no back pain or tearing sensation no abdominal pain. No difficulty breathing. [facility] Medical History Anemia Atherosclerosis of coronary artery of [place] heart without angina pectoris Bronchitis Cough Crohn disease DDD (degenerative disc disease) Deep vein thrombosis of left lower extremity (2012) Essential (primary) hypertension GERD (gastroesophageal reflux disease) Glaucoma Heartburn Hyperlipidemia Multiple allergies New onset a-fib Non-ST elevation (NSTEMI) myocardial infarction (10/03/16) PND (post-nasal drip) Prostate enlargement PUD (peptic ulcer disease) Skin cancer Stomach ulcer Unstable angina Home Medications nitroglycerin 0.4 mg sublingual tablet (Nitrostat) 0.4 mg sublingual Q5-15M PRN Chest Pain 04/06/17 [History Last Taken Unknown] apixaban 5 mg tablet (Eliquis) 5 mg PO BID blood thinner 12/16/17 [History Last Taken 02/20/22 22:00] atorvastatin 20 mg tablet 20 mg PO QHS cholesterol 11/03/18 [History Last Taken 02/20/22 22:00] balsalazide 750 mg capsule 2,250 mg PO BID stomach 07/11/19 [History Last Taken 02/20/22 22:00] pantoprazole 40 mg tablet,delayed release 40 mg PO DAILY stomach 01/26/20 [History Last Taken 02/20/22 09:00] acetaminophen 325 mg tablet (Tylenol) 650 mg PO Q6H PRN Breakthrough Pain, Mild 05/08/21 [History Last Taken Unknown] dextromethorphan polistirex 30 mg/5 mL oral susp ext.release 12hr (Robitussin ER) 10 ml PO Q12H PRN Cough 05/08/21 [History Last Taken Unknown] guaifenesin 600 mg tablet, extended release 12 hr (Mucinex) 600 mg PO Q12H PRN Cough 05/08/21 [History Last Taken Unknown] albuterol sulfate 90 mcg/actuation aerosol inhaler (Ventolin HFA) 2 puff inhalation Q4H PRN PRN Wheezing ##1 10/26/22 [Rx Last Taken Unknown] amlodipine 5 mg tablet 5 mg PO DAILY 11/11/22 [History Last Taken Unknown] amiodarone 200 mg tablet 200 mg PO DAILY #90 tabs 11/12/22 [Rx Last Taken Unknown] levocetirizine 5 mg tablet 5 mg PO QHS 01/18/23 [History Last Taken Unknown] Allergy/AdvReac Type Severity Reaction Status Date / Time ragweed pollen AdvReac Intermediate Nasal Verified 01/18/23 04:04 congestion Family History Father Heart disease Mother CVA (cerebral vascular accident) Surgical History H/O colonoscopy History of coronary artery stent placement (10/05/16) History of dental surgery (04/15/21) Previous back surgery Social History household members: spouse Smoking Status: Former smoker second hand exposure: No alcohol intake: never substance use type: does not use ROS ROS ED ROS Narrative Past medical history: Reviewed, includes atrial fibrillation, hypertension, CAD Medications: Reviewed, includes Eliquis Social history: Noncontributory Review of systems: All systems negative except as indicated General: No fever Eyes: No visual changes ENT: No upper airway congestion, normal voice Neck: No neck pain Cardiovascular: Some palpitations and some chest discomfort. Respiratory: No shortness of breath or cough Gastrointestinal: No abdominal pain, nausea vomiting or diarrhea Genitourinary: No dysuria Musculoskeletal: Denies myalgias no difficulty with ambulation Skin: No rash Neurological: No memory loss, confusion or any focal weakness EXAM Physical Exam Narrative Exam Narrative: Physical exam General: Well nourished, Well developed, No Acute Distress Head: Normocephalic, Atraumatic Eyes: Conjunctiva not pale ENT: Moist mucous membranes Neck: Supple, Nontender, No lymphadenopathy Cardiovascular: Regular rate, Regular rhythm. No murmur. No JVD. Respiratory: No distress, CTA bilaterally Abdomen: Soft, Nontender, Nondistended Back: Nontender, Normal Inspection. Negative for: CVA tenderness Extremities: Nontender, No edema Skin: Normal color, No rash Const Vital Signs: 01/18/23 03:35 01/18/23 03:43 01/18/23 04:34 Temperature 97.4 F L Temperature Source Temporal Pulse Rate 67 59 L Respiratory Rate 18 18 Blood Pressure 165/72 H 141/65 H Blood Pressure Mean 103 90 Pulse Ox 94 98 Oxygen Delivery Method Room Air Room Air Room Air MDM MDM MDM Narrative Medical decision making narrative: Prehospital EKG showed that the patient was in atrial fibrillation. However upon arrival to the emergency department on the monitor and on EKG he is in sinus rhythm. He appears well he still feels somewhat anxious and does not feel like he can go to sleep. Patient will be ruled out from the cardiac standpoint. I am not worried about PE since he is on Eliquis, he does not have back pain or tearing sensation, I am not worried about dissection. Chest x-ray does not show any pneumonia, pneumothorax or any other lung pathologies. Lab Data Labs: Laboratory Results - last 24 hr 01/18/23 03:39 WBC 6.6 RBC 4.07 L Hgb 11.6 L Hct 37.3 L MCV 91.6 MCH 28.5 MCHC 31.1 L RDW Std Deviation 56.8 H RDW Coeff of Gaby 16.9 H Plt Count 214 MPV 9.1 Immature Gran % (Auto) 0.200 Neut % (Auto) 43.9 L Lymph % (Auto) 33.0 [place] % (Auto) 15.5 H Eos % (Auto) 6.8 H Baso % (Auto) 0.6 Absolute Neuts (auto) 2.9 Absolute Lymphs (auto) 2.17 Nucleated RBC % 0 Sodium 137 Potassium 3.8 Chloride 106 Carbon Dioxide 27.0 Anion Gap 4 L BUN 22 H Creatinine 1.19 Estim Creat Clear Calc 40.20 Est GFR (MDRD) Af Amer 75 Est GFR (MDRD) Non-Af 62 BUN/Creatinine Ratio 18.5 Glucose 103 Calcium 8.7 Troponin I High Sens 9 Radiography Chest X-Ray - ED: 1 View, Read by ED Physician, Normal, Heart, Lungs, Mediastinum and Bony Structures Diagnostic Testing: Clinical Impression(s) from Imaging Studies Chest X-Ray 01/18/23 03:35 IMPRESSION: Mild left basilar airspace disease. Findings may indicate atelectasis or infection. Electronically Signed: Aki Badillo MD at 4:10 EDT , Rhythm Strip Rhythm Strip: Sinus Rhythm Rate: 60 Ectopy: None EKG Initial EKG: Comments: Sinus rhythm with a rate of 66. Normal [place] and QTc intervals. No ischemic changes. Interpreted by emergency doctor Discharge Plan Triage Chief Complaint: Chest Pain ED Provider: Tyron Sosa Dx/Rx/DC Orders Clinical Impression: Hyperlipidemia, Paroxysmal atrial fibrillation, Chest pain Instructions: AFib, ED Chest Pain, Uncertain Cause Prescriptions: No Action nitroglycerin [Nitrostat] 0.4 mg tablet, sublingual 0.4 mg SUBLINGUAL Q5-15M PRN (Reason: Chest Pain) Eliquis 5 mg tablet 5 mg PO BID atorvastatin 20 mg tablet 20 mg PO QHS pantoprazole 40 mg tablet,delayed release (DR/EC) 40 mg PO DAILY dextromethorphan polistirex [Robitussin ER] 30 mg/5 mL suspension,extended rel 12 hr 10 ml PO Q12H PRN (Reason: Cough) acetaminophen [Tylenol] 325 mg tablet 650 mg PO Q6H PRN (Reason: Breakthrough Pain, Mild) guaifenesin [Mucinex] 600 mg tablet extended release 12hr 600 mg PO Q12H PRN (Reason: Cough) balsalazide 750 mg capsule 2,250 mg PO BID Rx Instructions: 750 mg PO 6 capsules per day; albuterol sulfate [Ventolin HFA] 90 mcg/actuation HFA aerosol inhaler 2 puff inhalation Q4H PRN PRN (Reason: Wheezing) Qty: 1 0RF Hold Instructions: No transportation amlodipine 5 mg tablet 5 mg PO DAILY Patient Comments: TAKE 1 TABLET BY MOUTH DAILY amiodarone 200 mg Tablet 200 mg PO DAILY Qty: 90 0RF levocetirizine 5 mg tablet 5 mg PO QHS Patient Comments: TAKE 1 TABLET BY MOUTH EVERYDAY AT BEDTIME Primary Care Provider: Marcelo Mccullough Chi Referrals: Marcelo Mccullough Chi, MD [Primary Care Provider] - 3-5 Days Disposition Disposition: Home, Self Care
[2023-01-18 04:00] LABS: Absolute Lymphocyte Count 2.17 X10^3/uL (0.83-4.51); Absolute Neutrophil Count 2.9 X10^3/uL (2.0-7.7); Basophil# 0.04 X10^3/uL; Basophil% 0.6 % (0-1); Eosinophil# 0.45 X10^3/uL; Eosinophils% 6.8 % (0-5); Hematocrit 37.3 % (40-54); Hemoglobin 11.6 g/dL (13.0-16.5); Lymphocyte # 2.17 X10^3/ul (0.83-4.51); Mean Corp Hgb Conc 31.1 g/dL (32-36); Mean Corpuscular Hgb 28.5 pg (27.0-32.0); Mean Corpuscular Volume 91.6 fL (80-94); Mean Platelet Vol. 9.1 fl (6.2-12.0); Monocyte# 1.02 X10^3/uL; Monocyte% 15.5 % (0-10); NRBC Flagged by Analyzer 0 % (0-5); Neutrophil # 2.88 X10^3/uL (2.7-7.7); Neutrophil % 43.9 % (47-70); Platelet Count 214 K/mm3 (150-450); RBC Distribution Width CV 16.9 % (11.6-14.6); RBC Distribution Width SD 56.8 fl (35.1-43.9); Red Blood Count 4.07 M/mm3 (4.6-6.2); White Blood Count 6.6 K/mm3 (4.4-11.0)
[2023-01-18] MEDS: LORazepam 2 MG/ML Syringe 0.25 MG IV (04:01)
[2023-01-18 04:33] LABS: Anion Gap 4 (5-15); BUN 22 mg/dL (7-18); BUN/Creat Ratio 18.5 RATIO (10-20); Calcium,Total 8.7 mg/dL (8.5-10.1); Chloride 106 mmol/L (98-107); Creatinine, Serum 1.19 mg/dL (0.70-1.30); EST Glomerular Filtration Rate 62 mL/min (>60); Est Glom Filt Rate - Afr Amer 75 mL/min (>60); Glucose 103 mg/dL (74-106); Potassium 3.8 mmol/L (3.5-5.1); Sodium Level 137 mmol/L (136-145); Troponin-I HS (w/2H Reflex) 9 pg/mL (3.0-78.0)
[2023-01-18 04:34] VITALS: BP 141/65; PULSE 59; RESP 18; O2SAT 98
[2023-01-18 05:46] LABS: Reflex Troponin-HS? (from REC) Y
[2023-01-18 06:00] VITALS: BP 135/87; PULSE 57; RESP 16; O2SAT 97
[2023-01-18 06:26] LABS: Troponin-I HS 10 pg/mL (3.0-78.0)
== END 2023-01-18 06:51 | disposition home or self-care (01) ==
LOC: ED 04:02
PROVIDERS: Emergency Provider Emergency Medicine; PCP Family Medicine Geriatric Medicine; Visit Provider Emergency Medicine
DX: I48.0 Paroxysmal atrial fibrillation (principal); Z87.891 Personal history of nicotine dependence; I25.10 Atherosclerotic heart disease of native coronary artery without angina pectoris; E78.5 Hyperlipidemia, unspecified; I10 Essential (primary) hypertension; R07.9 Chest pain, unspecified; Z79.01 Long term (current) use of anticoagulants; I25.2 Old myocardial infarction; Z95.5 Presence of coronary angioplasty implant and graft
CPT/HCPCS: 71045; 80048; 84484; 85025; 93005; 96374; 99285; A4216

== ENCOUNTER 2023-02-03 07:52 | Emergency (ER) | payer MEDICARE, OTHER, SELFPAY ==
[2016-10-05 13:30] VITALS: BMI 26.1
[2023-02-03 07:53] VITALS: BP 181/72; PULSE 67; RESP 18; TEMP 36.2; O2SAT 97
--- NOTE | 2023-02-03 08:06 | EKG12_ITS ---
Test Reason : DIZZINESS Blood Pressure : / mmHG Vent. Rate : 065 BPM Atrial Rate : 065 BPM P-R Int : 190 ms QRS Dur : 092 ms QT Int : 432 ms P-R-T Axes : 084 -09 066 degrees QTc Int : 449 ms Normal sinus rhythm Normal ECG Confirmed by HARJIT WOOD, VICENTE ([id number]), newspaper or periodical editor NEERAJ MEJIAS ([id number]) on 02/10/2023 10:49:07 AM Referred By: RUFINO Confirmed By:VICENTE LOMBARDI MD
[2023-02-03 08:19] VITALS: BP 112/62; PULSE 55; RESP 16
--- NOTE | 2023-02-03 08:20 | ED.RN ---
PER PT FAMILY MEMBER, PT HAD FALLEN COUPLE WEEKS AGO AND HIT THE BACK OF HIS HEAD. PT IS ON ELIQUIS, AND WAS NOT EVALUATED FOR HEAD INJURY AT THAT TIME. PT REPORTS HE HAS BEEN DIZZY AND OFF BALANCE FOR WEEKS, BUT IT IS GETTING WORSE.
--- NOTE | 2023-02-03 08:25 | CT_ITS ---
STUDY: CT BRAIN WITHOUT CONTRAST REASON FOR EXAM: Male, 82 years old. Dizziness. Recent falls. RADIATION DOSAGE (If Supplied By Facility): CTDIvol = ( 44.99 ) mGy, DLP = ( 812.98 ) mGycm TECHNIQUE: Transaxial CT imaging of the brain was performed without administration of intravenous contrast material. Individualized dose optimization techniques were used for this CT. COMPARISON: Comparison is made with prior study dated November 06, 2022. FINDINGS: Normal soft tissue structures. Normal calvarium. There is mild cerebral atrophy with widening of the extra-axial spaces and ventricular dilatation. There are areas of decreased attenuation within the white matter tracts of the supratentorial brain, consistent with microvascular disease changes. Normal basal ganglia and thalami. Normal brainstem. Normal cerebellum. There is no intracranial hemorrhage. There are no findings of an acute ischemic infarction. Nodular mucosal thickening of the maxillary sinus bilaterally. CT/Brain/Head without Contrast IMPRESSION: Chronic involutional changes of the brain. Electronically Signed: Jayson Morales MD at 9:06 EST ,
--- NOTE | 2023-02-03 08:27 | EDS_ITS ---
HPI History of Present Illness Chief Complaint: Dizziness Narrative Narrative: 82-year-old male presents with his daughter because of lightheadedness and dizziness states been going on for the last few days. He has past medical history of atrial fibrillation, and DVTs with PEs for which he is on Eliquis and has been. They relate history that he required cardioversion twice for his atrial fibrillation. He was recently admitted to the hospital a few weeks ago for atrial fibrillation. He presents because of the more lightheadedness and vertiginous type symptoms that he has had for the past few days. Can be worse with standing. He denies any chest pain or shortness of breath. No palpitations. He does not have any dysuria or hematuria. He has an occasional cough with phlegm production, but does not know the color because he tends to swallow it. He is here for his generalized weakness and lightheadedness. Additionally, his daughter states that he has fallen a few times, the last being on January 08 where he may have hit his head and he told her he does not feel right since then. The last time he was in the emergency department he neglected to tell the physician that he had fallen and hit his head. [facility] Medical History Anemia Atherosclerosis of coronary artery of [place] heart without angina pectoris Bronchitis Cough Crohn disease DDD (degenerative disc disease) Deep vein thrombosis of left lower extremity (2012) Essential (primary) hypertension GERD (gastroesophageal reflux disease) Glaucoma Heartburn Hyperlipidemia Multiple allergies New onset a-fib Non-ST elevation (NSTEMI) myocardial infarction (10/03/16) PND (post-nasal drip) Prostate enlargement PUD (peptic ulcer disease) Skin cancer Stomach ulcer Unstable angina Home Medications nitroglycerin 0.4 mg sublingual tablet (Nitrostat) 0.4 mg sublingual Q5-15M PRN Chest Pain 04/06/17 [History Last Taken Unknown] apixaban 5 mg tablet (Eliquis) 5 mg PO BID blood thinner 12/16/17 [History Last Taken 02/20/22 22:00] atorvastatin 20 mg tablet 20 mg PO QHS cholesterol 11/03/18 [History Last Taken 02/20/22 22:00] balsalazide 750 mg capsule 2,250 mg PO BID stomach 07/11/19 [History Last Taken 02/20/22 22:00] pantoprazole 40 mg tablet,delayed release 40 mg PO DAILY stomach 01/26/20 [History Last Taken 02/20/22 09:00] acetaminophen 325 mg tablet (Tylenol) 650 mg PO Q6H PRN Breakthrough Pain, Mild 05/08/21 [History Last Taken Unknown] dextromethorphan polistirex 30 mg/5 mL oral susp ext.release 12hr (Robitussin ER) 10 ml PO Q12H PRN Cough 05/08/21 [History Last Taken Unknown] guaifenesin 600 mg tablet, extended release 12 hr (Mucinex) 600 mg PO Q12H PRN Cough 05/08/21 [History Last Taken Unknown] albuterol sulfate 90 mcg/actuation aerosol inhaler (Ventolin HFA) 2 puff inhalation Q4H PRN PRN Wheezing ##1 10/26/22 [Rx Last Taken Unknown] amiodarone 200 mg tablet 200 mg PO DAILY #90 tabs 11/12/22 [Rx Last Taken Unknown] levocetirizine 5 mg tablet 5 mg PO QHS 01/18/23 [History Last Taken Unknown] escitalopram oxalate 5 mg tablet 5 mg PO DAILY 02/03/23 [History Last Taken Unknown] Allergy/AdvReac Type Severity Reaction Status Date / Time ragweed pollen AdvReac Intermediate Nasal Verified 01/18/23 04:04 congestion Family History Father Heart disease Mother CVA (cerebral vascular accident) Surgical History H/O colonoscopy History of coronary artery stent placement (10/05/16) History of dental surgery (04/15/21) Previous back surgery Social History household members: spouse Smoking Status: Former smoker second hand exposure: No alcohol intake: never substance use type: does not use ROS ROS ED ROS Narrative Constitutional: No fever, no chills. HEENT: No sore throat. No neck pain. No loss of vision. No rhinorrhea. Cardiovascular: No chest pain. No palpitations. No pedal edema. Respiratory: Occasionally productive cough, no shortness of breath. Abdominal: No abdominal pain. No nausea. No vomiting. Genitourinary: No dysuria. No hematuria. Musculoskeletal: No myalgias. No arthralgias. Neurologic: Positive headaches. Positive dizziness. Positive lightheadedness. Skin: No rash. No change in color. Psychiatric: No depression. No anxiety. EXAM Physical Exam Narrative Exam Narrative: Afebrile. Vital signs noted. HEENT: Normocephalic. Atraumatic. PERRL, EOMI. Neck soft and supple. No point tenderness or step off. Cardiovascular: Regular rate and rhythm. No murmurs, rubs, or gallops appreciated. Respiratory: No tachypnea. Lungs clear to auscultation bilaterally. Gastrointestinal: Abdomen soft, nontender, with normoactive bowel sounds. No rebound or guarding. Neurological: Awake. Alert. Oriented x3, nonfocal, nonlateralizing. Skin: No rash. Normal color. No pallor. Musculoskeletal: No pedal edema. Full range of motion extremities. Const Vital Signs: 02/03/23 07:53 02/03/23 08:19 02/03/23 08:19 Temperature 97.2 F L Temperature Source Temporal Pulse Rate 67 55 L Respiratory Rate 18 16 Respiratory Effort Normal Non-Labored Respiratory Pattern Normal Blood Pressure 181/72 H 112/62 Blood Pressure Mean 108 78 Pulse Ox 97 Oxygen Delivery Method Room Air MDM MDM MDM Narrative Medical decision making narrative: Comprehensive work-up was pursued. For his lightheadedness and dizziness, in the differential diagnosis is continued concussion from his fall a few weeks a go, intravascular volume depletion, and dehydration, along with orthostatic hypotension. Regarding his other complaints of generalized weakness and shakiness, he may have hyponatremia. Lower on the differential diagnosis is pneumonia because the history and physical does not support this, versus urinary tract infection which is also not supported. EKG was obtained and interpreted by myself independently as normal sinus rhythm at 65 bpm without ectopy or acute ST changes. No STEMI. I do not feel that his history of atrial fibrillation is a cause of his generalized weakness given his normal EKG. I reviewed his laboratory work and he has a normal white count of 4.9, hemoglobin stable 11.5, platelet count normal at 319. CMP shows glucose appropriately elevated at 102 with a anion gap low at 4. Sodium is normal at 139 as well as potassium 3.8 and chloride 106. LFTs show a low ALT of 13 but otherwise grossly unremarkable. His high-sensitivity troponin is 7. His weakness has been ongoing for few days. Chest x-ray in 1 view interpreted by myself independently shows no evidence of pneumonia or pneumothorax. I do not feel antibiotics are indicated. I reviewed the radiology report which confirms my independent interpretation. Additionally, I reviewed the radiology report for the CT of the brain which shows chronic involutional Javon changes but no evidence of an acute fracture or hemorrhage. Upon repeat examination, he feels the same. In discussion with the patient and his family, he prefers to be discharged, stating he does not need help at home or admission for placement. Additionally, his daughter states that he started Lexapro and has been on it for 2 weeks. She feels this may be medication side effect as he is also experiencing tinnitus. They were told to call the physician/provider who started this as he may need to taper off of it. Urinalysis obtained and reviewed, and he has 5-10 WBCs with 0 bacteria and 0 RBCs. I do not feel antibiotics are currently indicated, but his urine will be sent for culture. At this point in time, I feel he can be discharged safely home with follow-up. I had discussed observation/admission with the patient and his family, but they prefer that he go home as they do not feel he requires rehab or placement in a nursing facility. Return instructions to the emergency department were reviewed. Disposition is discharged home in stable condition. History & Record Review Discussion w/independent historian: Patient Additional record(s) reviewed:: Prior ED visit and Prior labs Lab Data Attestation: I reviewed the patient's lab results. Labs: Laboratory Results - last 24 hr 02/03/23 02/03/23 08:15 09:30 WBC 4.9 RBC 4.01 L Hgb 11.5 L Hct 37.0 L MCV 92.3 MCH 28.7 MCHC 31.1 L RDW Std Deviation 58.2 H RDW Coeff of Gaby 16.9 H Plt Count 319 MPV 8.7 Sodium 139 Potassium 3.8 Chloride 106 Carbon Dioxide 29.0 Anion Gap 4 L BUN 12 Creatinine 0.96 Est GFR (MDRD) Af Amer 96 Est GFR (MDRD) Non-Af 79 BUN/Creatinine Ratio 12.5 Glucose 102 Calcium 8.1 L Total Bilirubin 1.30 H AST 15 ALT 13 L Alkaline Phosphatase 60 Troponin I High Sens 7 Total Protein 7.0 Albumin 3.3 Globulin 3.7 Albumin/Globulin Ratio 0.9 Urine Color Yellow Urine Clarity Clear Urine pH 8.0 Ur Specific [place] 1.015 Urine Protein Negative Urine Glucose (UA) Normal Urine Ketones Negative Urine Occult Blood Negative Urine Nitrite Negative Urine Bilirubin Negative Urine Urobilinogen Normal Ur Leukocyte Esterase 500 H Urine RBC 0-5 SEEN Urine WBC 5-10 SEEN Ur Squamous Epith Cells 0 SEEN Urine Bacteria 0 SEEN Urine Mucus 0 SEEN Radiography Diagnostic Testing: Clinical Impression(s) from Imaging Studies Brain CT 02/03/23 08:25 IMPRESSION: Chronic involutional changes of the brain. Electronically Signed: Jayson Morales MD at 9:06 EST , Chest X-Ray 02/03/23 08:55 IMPRESSION: Hyperinflation. No acute abnormality is seen. Electronically Signed: Jayson Morales MD at 9:07 EST , Discharge Plan Triage Chief Complaint: Dizziness Other Complaint: Hypertension ED Provider: Amado Anderson Dx/Rx/DC Orders Clinical Impression: Medication side effects, Lightheadedness, Generalized weakness Instructions: ED Dizziness, Uncertain Cause, ED Near-Fainting, Uncertain Cause, ED Weakness (Uncertain Cause) Prescriptions: No Action nitroglycerin [Nitrostat] 0.4 mg tablet, sublingual 0.4 mg SUBLINGUAL Q5-15M PRN (Reason: Chest Pain) Patient Comments: pt. states he has never had to take it Eliquis 5 mg tablet 5 mg PO BID atorvastatin 20 mg tablet 20 mg PO QHS pantoprazole 40 mg tablet,delayed release (DR/EC) 40 mg PO DAILY dextromethorphan polistirex [Robitussin ER] 30 mg/5 mL suspension,extended rel 12 hr 10 ml PO Q12H PRN (Reason: Cough) acetaminophen [Tylenol] 325 mg tablet 650 mg PO Q6H PRN (Reason: Breakthrough Pain, Mild) guaifenesin [Mucinex] 600 mg tablet extended release 12hr 600 mg PO Q12H PRN (Reason: Cough) balsalazide 750 mg capsule 2,250 mg PO BID Rx Instructions: 750 mg PO 6 capsules per day; albuterol sulfate [Ventolin HFA] 90 mcg/actuation HFA aerosol inhaler 2 puff inhalation Q4H PRN PRN (Reason: Wheezing) Qty: 1 0RF Hold Instructions: No transportation amiodarone 200 mg Tablet 200 mg PO DAILY Qty: 90 0RF escitalopram oxalate 5 mg tablet 5 mg PO DAILY Patient Comments: TAKE 1 TABLET BY MOUTH EVERY DAY levocetirizine 5 mg tablet 5 mg PO QHS Patient Comments: TAKE 1 TABLET BY MOUTH EVERYDAY AT BEDTIME Primary Care Provider: Marcelo Mccullough Chi Referrals: Marcelo Mccullough Chi, MD [Primary Care Provider] - As soon as possible Activity Restrictions/Additional Instructions: Follow-up with the provider who wrote the Lexapro, and tell them the side effects that you are having. Return with new or worsening symptoms. Disposition Disposition: Home, Self Care
[2023-02-03 08:43] LABS: Hemoglobin 11.5 g/dL (13.0-16.5); Mean Corp Hgb Conc 31.1 g/dL (32-36); Mean Corpuscular Hgb 28.7 pg (27.0-32.0); Mean Corpuscular Volume 92.3 fL (80-94); Mean Platelet Vol. 8.7 fl (6.2-12.0); Platelet Count 319 K/mm3 (150-450); RBC Distribution Width CV 16.9 % (11.6-14.6); RBC Distribution Width SD 58.2 fl (35.1-43.9); Red Blood Count 4.01 M/mm3 (4.6-6.2); White Blood Count 4.9 K/mm3 (4.4-11.0)
[2023-02-03] MEDS: 0.9% Normal Saline (1000mL) 1,000 ML 1000 ML IV (08:43)
--- NOTE | 2023-02-03 08:55 | RAD_ITS ---
STUDY: X-RAY CHEST REASON FOR EXAM: Male, 82 years old. CAD TECHNIQUE: Dizziness. Recent falls. COMPARISON: Comparison is made with prior study November 11, 2022. FINDINGS: EKG electrodes are seen. There is hyperinflation of the lungs consistent with chronic obstructive lung disease (COPD). There is no demonstrated pleural abnormality. Normal size heart. Normal mediastinum and jenny. Normal visualized pulmonary arteries. There is atherosclerotic calcification of the aortic arch with tortuosity. There are diffuse degenerative changes of the visualized thoracic spine. Normal visualized ribs, clavicles, and shoulders. There is no demonstrated abnormality of the visualized soft tissue structures of the upper abdomen. RAD/Chest 1 View (Portable) IMPRESSION: Hyperinflation. No acute abnormality is seen. Electronically Signed: Jayson Morales MD at 9:07 EST ,
[2023-02-03 09:02] LABS: ALB/GLOB Ratio 0.9 RATIO (0.9-2.4); AST(SGOT) 15 U/L (15-37); Alanine Aminotransfer ALT/SGPT 13 U/L (16-61); Albumin, Serum 3.3 g/dL (3.2-5.0); Alkaline Phosphatase 60 U/L (45-117); Anion Gap 4 (5-15); BUN 12 mg/dL (7-18); BUN/Creat Ratio 12.5 RATIO (10-20); Calcium,Total 8.1 mg/dL (8.5-10.1); Chloride 106 mmol/L (98-107); Creatinine, Serum 0.96 mg/dL (0.70-1.30); EST Glomerular Filtration Rate 79 mL/min (>60); Est Glom Filt Rate - Afr Amer 96 mL/min (>60); Globulin 3.7 g/dL (2.2-4.2); Glucose 102 mg/dL (74-106); Potassium 3.8 mmol/L (3.5-5.1); Sodium Level 139 mmol/L (136-145); Troponin-I HS 7 pg/mL (3.0-78.0)
[2023-02-03 09:34] LABS: Bacteria 0 SEEN /hpf (None Seen); Mucous, Urine 0 SEEN /hpf (<or=2+); Squamous Epithelial Cells - UA 0 SEEN /hpf (0-5)
[2023-02-03 09:41] LABS: Color, Urine Yellow (Yellow); Glucose, Dipstick Normal (Normal); Ketone-Dipstick Negative (Negative); Leukocyte Esterase-Dipstick 500 /ul (Negative); Nitrite-Dipstick Negative (Negative); Occult Blood-Urine Negative /ul (Negative); Protein-Dipstick Negative (Negative); Specific Gravity, Urine 1.015 (1.002-1.030); Urine Bilirubin Dipstick Negative (Negative); Urine Clarity Clear (Clear); Urine Urobilinogen Normal (Normal)
[2023-02-03 09:51] LABS: Red Blood Cells-Urine 0-5 SEEN /hpf (0-5); White Blood Cells 5-10 SEEN /hpf (0-5)
== END 2023-02-03 10:20 | disposition home or self-care (01) ==
PROVIDERS: Emergency Provider Emergency Medicine; PCP Family Medicine Geriatric Medicine; Visit Provider Emergency Medicine
DX: I10 Essential (primary) hypertension (principal); I48.91 Unspecified atrial fibrillation; I25.10 Atherosclerotic heart disease of native coronary artery without angina pectoris; Z87.891 Personal history of nicotine dependence; E78.5 Hyperlipidemia, unspecified; Z86.718 Personal history of other venous thrombosis and embolism; Z79.01 Long term (current) use of anticoagulants; Z79.899 Other long term (current) drug therapy
CPT/HCPCS: 70450; 71045; 80053; 81001; 84484; 85027; 87086; 93005; 96360; 99284; J7030; A4216

== ENCOUNTER → 2023-03-10 | Outpatient (CLI) | payer MEDICARE, OTHER, SELFPAY ==
[2016-10-05 13:30] VITALS: BMI 26.1
[2023-03-10 11:00] LABS: Absolute Lymphocyte Count 1.24 X10^3/uL (0.83-4.51); Basophil# 0.03 X10^3/uL; Basophil% 0.7 % (0-1); Eosinophil# 0.31 X10^3/uL; Eosinophils% 6.9 % (0-5); Hematocrit 39.1 % (40-54); Hemoglobin 11.9 g/dL (13.0-16.5); Lymphocyte # 1.24 X10^3/ul (0.83-4.51); Lymphocyte % 27.6 % (19-41); Mean Corp Hgb Conc 30.4 g/dL (32-36); Mean Corpuscular Hgb 28.6 pg (27.0-32.0); Mean Platelet Vol. 9.2 fl (6.2-12.0); Monocyte# 0.87 X10^3/uL; Monocyte% 19.4 % (0-10); NRBC Flagged by Analyzer 0 % (0-5); Neutrophil # 2.03 X10^3/uL (2.7-7.7); Neutrophil % 45.2 % (47-70); Platelet Count 307 K/mm3 (150-450); RBC Distribution Width CV 16.7 % (11.6-14.6); RBC Distribution Width SD 57.6 fl (35.1-43.9); Red Blood Count 4.16 M/mm3 (4.6-6.2); White Blood Count 4.5 K/mm3 (4.4-11.0)
[2023-03-10 11:15] LABS: Vitamin D,25 Hydroxy 28.2 ng/mL
[2023-03-10 11:35] LABS: ALB/GLOB Ratio 0.9 RATIO (0.9-2.4); AST(SGOT) 18 U/L (15-37); Alanine Aminotransfer ALT/SGPT 14 U/L (16-61); Albumin, Serum 3.3 g/dL (3.2-5.0); Alkaline Phosphatase 57 U/L (45-117); Anion Gap 5 (5-15); BUN 15 mg/dL (7-18); BUN/Creat Ratio 15.9 RATIO (10-20); Calcium,Total 8.4 mg/dL (8.5-10.1); Chloride 109 mmol/L (98-107); Creatinine, Serum 0.94 mg/dL (0.70-1.30); EST Glomerular Filtration Rate 81 mL/min (>60); Est Glom Filt Rate - Afr Amer 98 mL/min (>60); Globulin 3.7 g/dL (2.2-4.2); Glucose 125 mg/dL (74-106); Potassium 3.8 mmol/L (3.5-5.1); Sodium Level 142 mmol/L (136-145); Thyroid Stim Hormone (TSH) 2.27 uIU/mL (0.358-3.74)
== END | disposition home or self-care (01) ==
LOC: POLAB3 09:41
PROVIDERS: PCP Family Medicine Geriatric Medicine; Visit Provider Family Medicine Geriatric Medicine
DX: I10 Essential (primary) hypertension (principal); E55.9 Vitamin D deficiency, unspecified
CPT/HCPCS: 36415; 80053; 82306; 84443; 85025

== ENCOUNTER 2023-03-16 07:53 | Emergency (ER) | payer MEDICARE, OTHER, SELFPAY ==
[2016-10-05 13:30] VITALS: BMI 26.1
[2023-03-16 07:55] VITALS: BP 184/80; PULSE 71; RESP 19; TEMP 36.8; O2SAT 94; BMI 29.1
--- NOTE | 2023-03-16 09:09 | EKG12_ITS ---
Test Reason : CHEST PAIN Blood Pressure : / mmHG Vent. Rate : 064 BPM Atrial Rate : 000 BPM P-R Int : 000 ms QRS Dur : 090 ms QT Int : 450 ms P-R-T Axes : 000 -08 062 degrees QTc Int : 464 ms NSR Abnormal ECG Confirmed by HARJIT WOOD, VICENTE ([id number]), editor department ARNOLD AHUMADA ([id number]) on 03/23/2023 8:11:10 AM Referred By: Ady Rothman Confirmed By:VICENTE LOMBARDI MD
--- NOTE | 2023-03-16 09:09 | EDS_ITS ---
HPI History of Present Illness Chief Complaint: Other, Pain/Inj Narrative Narrative: 82-year-old male presenting with upper back pain. He states it started about 1 AM this morning. He states it comes and last for about 20 to 30 minutes and will go away for short while and then return. Patient states he feels shaky with these episodes. He is not nauseous. He states he feels nervous on the left side of his chest when this happens. Patient states that he is no longer taking his amiodarone which was prescribed for him the last time he was here in the ER for A-fib. He states he has not taken this for 2 weeks because it makes him dizzy. His family states that he also has a history of anxiety has not taken his anxiety medication. He states he does not like the way this makes him feel. He denies any julio cesar chest pressure or chest pain. No fevers or chills. No nausea or vomiting. Per the patient's family he has been having these episodes of shakiness and weakness periodically for extended period time. They have seen Dr. Mccullough. Patient states he recently saw Dr. Mccullough and states he did not give any reasons why he had the symptoms. [facility] Medical History Anemia Atherosclerosis of coronary artery of [place] heart without angina pectoris Bronchitis Cough Crohn disease DDD (degenerative disc disease) Deep vein thrombosis of left lower extremity (2012) Essential (primary) hypertension GERD (gastroesophageal reflux disease) Glaucoma Heartburn Hyperlipidemia Multiple allergies New onset a-fib Non-ST elevation (NSTEMI) myocardial infarction (10/03/16) PND (post-nasal drip) Prostate enlargement PUD (peptic ulcer disease) Skin cancer Stomach ulcer Unstable angina Home Medications nitroglycerin 0.4 mg sublingual tablet (Nitrostat) 0.4 mg sublingual Q5-15M PRN Chest Pain 04/06/17 [History Last Taken Unknown] apixaban 5 mg tablet (Eliquis) 5 mg PO BID blood thinner 12/16/17 [History Last Taken 02/20/22 22:00] atorvastatin 20 mg tablet 20 mg PO QHS cholesterol 11/03/18 [History Last Taken 02/20/22 22:00] balsalazide 750 mg capsule 2,250 mg PO BID stomach 07/11/19 [History Last Taken 02/20/22 22:00] pantoprazole 40 mg tablet,delayed release 40 mg PO DAILY stomach 01/26/20 [History Last Taken 02/20/22 09:00] acetaminophen 325 mg tablet (Tylenol) 650 mg PO Q6H PRN Breakthrough Pain, Mild 05/08/21 [History Last Taken Unknown] dextromethorphan polistirex 30 mg/5 mL oral susp ext.release 12hr (Robitussin ER) 10 ml PO Q12H PRN Cough 05/08/21 [History Last Taken Unknown] guaifenesin 600 mg tablet, extended release 12 hr (Mucinex) 600 mg PO Q12H PRN Cough 05/08/21 [History Last Taken Unknown] albuterol sulfate 90 mcg/actuation aerosol inhaler (Ventolin HFA) 2 puff inhalation Q4H PRN PRN Wheezing ##1 10/26/22 [Rx Last Taken Unknown] amiodarone 200 mg tablet 200 mg PO DAILY #90 tabs 11/12/22 [Rx Last Taken Unknown] levocetirizine 5 mg tablet 5 mg PO QHS 01/18/23 [History Last Taken Unknown] escitalopram oxalate 5 mg tablet 5 mg PO DAILY 02/03/23 [History Last Taken Unknown] digoxin 125 mcg (0.125 mg) tablet 125 mcg PO DAILY #30 tabs 03/16/23 [Rx Last Taken Unknown] Allergy/AdvReac Type Severity Reaction Status Date / Time ragweed pollen AdvReac Intermediate Nasal Verified 03/16/23 07:58 congestion Family History Father Heart disease Mother CVA (cerebral vascular accident) Surgical History H/O colonoscopy History of coronary artery stent placement (10/05/16) History of dental surgery (04/15/21) Previous back surgery Social History household members: spouse Smoking Status: Former smoker second hand exposure: No alcohol intake: never substance use type: does not use ROS ROS ED Constitutional Constitutional ED: Denies chills or fever(s) Eyes Eyes: Denies change in vision or diplopia ENT ENT ED: Denies rhinorrhea or sore throat Cardiovascular Cardiovascular: Reports chest pain and palpitations Respiratory/Chest Respiratory/Chest: Reports dyspnea Gastrointestinal Gastrointestinal: Denies abdominal pain, nausea or vomiting Genitourinary Genitourinary ED: Denies dysuria or hematuria Musculoskeletal Musculoskeletal: Denies arthralgias or myalgias Integumentary Denies abscess or Abrasions Neurologic Neurologic: Denies headache(s) or paresthesias Psychiatric Psychiatric: Reports anxiety; Denies depression, suicidal ideation or suicidal thoughts EXAM Physical Exam Const Vital Signs: 03/16/23 07:55 03/16/23 08:00 03/16/23 09:17 Temperature 98.3 F Temperature Source Oral Pulse Rate 71 Respiratory Rate 19 H Respiratory Effort Normal Non-Labored Respiratory Pattern Normal Blood Pressure 184/80 H Blood Pressure Mean 114 Pulse Ox 94 Oxygen Delivery Method Room Air Room Air 03/16/23 11:08 Temperature Temperature Source Pulse Rate 57 L Respiratory Rate 18 Respiratory Effort Respiratory Pattern Blood Pressure 164/78 H Blood Pressure Mean 106 Pulse Ox 95 Oxygen Delivery Method Room Air Positive well nourished General Appearance ED: NAD; Negative for pallor HEENT Reports moist mucous membranes Eyes PERRL and EOMs intact bilaterally General Eye ED: Negative for pale conjunctiva or scleral icterus Resp normal respiratory effort Auscultation: Negative for rales, rhonchi or wheezes Cardio regular rate and regular rhythm GI normal to inspection, nondistended, normoactive bowel sounds Back/Spine normal to inspection and no thoracic nor lumbar tenderness Extremity General Extremety ED: Yes edema; Negative for tenderness General Extremity: edema bilateral lower extremity Details: mild Neuro oriented x3 Sensorium / Orientation: alert Psych mental status grossly normal Skin no rashes or lesions noted General Skin Exam: Negative for jaundice or pallor MDM MDM MDM Narrative Medical decision making narrative: Patient presenting with upper back pain he does not have any tenderness on examination. He is currently pain-free. Differential includes ACS, CHF, pneumonia, thoracic strain, anxiety, dysrhythmia, tachycardia, paroxysmal A-fib, dehydration, electrolyte abnormalities. CBC will be obtained to assess white blood cell count, hemoglobin, platelets. BMP to assess renal function, electrolytes, glucose. High-sensitivity troponin and EKG to assess for ischemia. Chest x-ray to rule out pneumonia or CHF. BNP to assess for CHF. Patient anticoagulated on Eliquis slight low suspicion for PE. CBC shows normal white blood cell count of 4.5. Hemoglobin 12.0. Platelets are normal at 272. Renal function electrolytes within normal limits. High-sensitivity troponin is 8 and delta troponin is 8. BNP 80.4. EKG on my interpretation shows a sinus rhythm at 64 bpm without sign of ischemic change or ectopy. Chest x-ray my interpretation shows no acute process. Patient has been witnessed ambulating to and from the bathroom with stable gait. Discussed evaluation with Dr. Chapman who is on for cardiology. He recommended having the patient started on low-dose digoxin of 0.125 daily. He is start this tomorrow. He also recommended outpatient Holter monitor which was provided from the ER. Patient will follow- up with Dr. Miller. He has an appointment on 24 March. Return precautions discussed. Impression: 1. Weakness 2. Back pain 3. Dizziness Lab Data Attestation: I reviewed the patient's lab results. Labs: Laboratory Results - last 24 hr 03/16/23 03/16/23 09:00 11:25 WBC 4.5 RBC 4.19 L Hgb 12.0 L Hct 38.1 L MCV 90.9 MCH 28.6 MCHC 31.5 L RDW Std Deviation 54.5 H RDW Coeff of Gaby 16.1 H Plt Count 272 MPV 9.2 Immature Gran % (Auto) 0.700 Neut % (Auto) 54.8 Lymph % (Auto) 21.0 [place] % (Auto) 17.2 H Eos % (Auto) 5.4 H Baso % (Auto) 0.9 Absolute Neuts (auto) 2.5 Absolute Lymphs (auto) 0.94 Nucleated RBC % 0 Sodium 140 Potassium 3.9 Chloride 107 Carbon Dioxide 29.0 Anion Gap 4 L BUN 13 Creatinine 0.91 Estim Creat Clear Calc 46.67 Est GFR (MDRD) Af Amer 102 Est GFR (MDRD) Non-Af 85 BUN/Creatinine Ratio 14.3 Glucose 102 Calcium 8.7 Troponin I High Sens 8 8 B-Natriuretic Peptide 80.4 Radiography Diagnostic Testing: Clinical Impression(s) from Imaging Studies Chest X-Ray 03/16/23 09:22 IMPRESSION: COPD. No interval change. Electronically Signed: Cam English MD at 9:35 EST , Discharge Plan Triage Chief Complaint: Other, Pain/Inj ED Provider: Ady Rothman Dx/Rx/DC Orders Instructions: ED Back Pain (Acute or Chronic), ED Dizziness, Uncertain Cause Prescriptions: New digoxin 125 mcg (0.125 mg) tablet 125 mcg PO DAILY Qty: 30 0RF No Action nitroglycerin [Nitrostat] 0.4 mg tablet, sublingual 0.4 mg SUBLINGUAL Q5-15M PRN (Reason: Chest Pain) Patient Comments: pt. states he has never had to take it Eliquis 5 mg tablet 5 mg PO BID atorvastatin 20 mg tablet 20 mg PO QHS pantoprazole 40 mg tablet,delayed release (DR/EC) 40 mg PO DAILY dextromethorphan polistirex [Robitussin ER] 30 mg/5 mL suspension,extended rel 12 hr 10 ml PO Q12H PRN (Reason: Cough) acetaminophen [Tylenol] 325 mg tablet 650 mg PO Q6H PRN (Reason: Breakthrough Pain, Mild) guaifenesin [Mucinex] 600 mg tablet extended release 12hr 600 mg PO Q12H PRN (Reason: Cough) balsalazide 750 mg capsule 2,250 mg PO BID Rx Instructions: 750 mg PO 6 capsules per day; albuterol sulfate [Ventolin HFA] 90 mcg/actuation HFA aerosol inhaler 2 puff inhalation Q4H PRN PRN (Reason: Wheezing) Qty: 1 0RF Hold Instructions: No transportation amiodarone 200 mg Tablet 200 mg PO DAILY Qty: 90 0RF escitalopram oxalate 5 mg tablet 5 mg PO DAILY Patient Comments: TAKE 1 TABLET BY MOUTH EVERY DAY levocetirizine 5 mg tablet 5 mg PO QHS Patient Comments: TAKE 1 TABLET BY MOUTH EVERYDAY AT BEDTIME Primary Care Provider: Marcelo Mccullough Chi Referrals: Marcelo Mccullough Chi, MD [Primary Care Provider] - Disposition Disposition: Home, Self Care
--- NOTE | 2023-03-16 09:22 | RAD_ITS ---
EXAM: XR CHEST, 1 VIEW CLINICAL INDICATION: chest pain TECHNIQUE: Frontal view of the chest. COMPARISON: XR Chest dated 02/03/2023 FINDINGS: LUNGS AND PLEURAL SPACES: Hyperlucency of both lungs when right side again seen consistent with underlying COPD. No airspace opacification of the lungs. HEART: Normal heart size. MEDIASTINUM: No mediastinal or hilar mass. BONES/JOINTS: No acute abnormality. RAD/Chest 1 View (Portable) IMPRESSION: COPD. No interval change. Electronically Signed: Cam English MD at 9:35 EST ,
[2023-03-16 09:23] LABS: Absolute Lymphocyte Count 0.94 X10^3/uL (0.83-4.51); Absolute Neutrophil Count 2.5 X10^3/uL (2.0-7.7); Basophil# 0.04 X10^3/uL; Basophil% 0.9 % (0-1); Eosinophil# 0.24 X10^3/uL; Eosinophils% 5.4 % (0-5); Hematocrit 38.1 % (40-54); Lymphocyte # 0.94 X10^3/ul (0.83-4.51); Mean Corp Hgb Conc 31.5 g/dL (32-36); Mean Corpuscular Hgb 28.6 pg (27.0-32.0); Mean Corpuscular Volume 90.9 fL (80-94); Mean Platelet Vol. 9.2 fl (6.2-12.0); Monocyte# 0.77 X10^3/uL; Monocyte% 17.2 % (0-10); NRBC Flagged by Analyzer 0 % (0-5); Neutrophil # 2.45 X10^3/uL (2.7-7.7); Neutrophil % 54.8 % (47-70); Platelet Count 272 K/mm3 (150-450); RBC Distribution Width CV 16.1 % (11.6-14.6); RBC Distribution Width SD 54.5 fl (35.1-43.9); Red Blood Count 4.19 M/mm3 (4.6-6.2); White Blood Count 4.5 K/mm3 (4.4-11.0)
[2023-03-16 09:36] LABS: Anion Gap 4 (5-15); BUN 13 mg/dL (7-18); BUN/Creat Ratio 14.3 RATIO (10-20); Calcium,Total 8.7 mg/dL (8.5-10.1); Chloride 107 mmol/L (98-107); Creatinine, Serum 0.91 mg/dL (0.70-1.30); EST Glomerular Filtration Rate 85 mL/min (>60); Est Glom Filt Rate - Afr Amer 102 mL/min (>60); Estimated Creatinine Clearance 46.67 ml/min; Glucose 102 mg/dL (74-106); Potassium 3.9 mmol/L (3.5-5.1); Sodium Level 140 mmol/L (136-145); Troponin-I HS (w/2H Reflex) 8 pg/mL (3.0-78.0)
[2023-03-16 10:09] LABS: BNP,B-Type NATRIURETIC PEPTIDE 80.4 pg/mL (0-100)
[2023-03-16 11:08] VITALS: BP 164/78; PULSE 57; RESP 18; O2SAT 95
[2023-03-16 11:16] LABS: Reflex Troponin-HS? (from REC) Y
[2023-03-16 11:48] LABS: Troponin-I HS 8 pg/mL (3.0-78.0)
[2023-03-16 13:11] VITALS: RESP 16; O2SAT 94
--- OUTSIDE RECORDS SUMMARY | 2023-03-17 19:28 | XMS RPT_ITS | CCD ---
Author Name Unknown Address [address] [place] [address] Organization [facility] Care Team Providers Care Hunter Guide Name Role Phone Maryjane Murphy Carlota Unavailable Unavailable JULIUS Corrales, Jemma Spence Unavailable Brando Puente RN, Izzy Naidu Unavailable Unavailable JULIUS Corrales, Jemma Spence Unavailable Brando Corrales RN, Jemma Spence Unavailable Brando Cerna MD, Temo Mc Unavailable Elizabeth Damon Unavailable Unavailable JULIUS Corrales, Jemma Spence Unavailable Brando Krishnamurthy MD, Nydia Primary Care Provider RAGHU WOOD, DR MORRELL Primary Care Physician ROBERT BELTRAN Attending Unavailable RAGHU WOOD, DR MORRELL Primary Care Unavailable Medications Current Medications Medication Drug Class(es) Dates Sig (Normalized) Sig (Original) apixaban 5 mg oral tablet (9 sources) Factor Xa Inhibitor Start: 06-11-2022 Eliquis 5 mg oral tablet 0 Refill(s) Start Date: 06/11/22 Status: Ordered Completed/Discontinued Medications Medication Drug Class(es) Dates Sig (Normalized) Sig (Original) amLODIPine 10 mg oral tablet (7 sources) Dihydropyridine Calcium Channel Nicanor Start: 10-07-2016 take 1 tablet by mouth once daily AMLODIPINE BESYLATE 10 MG TABS One tablet by mouth daily AMLODIPINE BESYLATE [id number] Temo Cerna MD aspirin 81 mg delayed release oral tablet (8 sources) Nonsteroidal Anti-inflammatory Drug Start: 10-07-2016 take 1 tablet by mouth once daily ASPIRIN EC 81 MG TBEC One tablet by mouth daily ASPIRIN [id number] Jemma M Kilner, RN Problems Active Problems Problem Classification Problem Date Documented Date Episodic/Chronic Acute myocardial infarction (8 sources) Non-ST elevation (NSTEMI) myocardial infarction; Translations: [Non-ST elevation (NSTEMI) myocardial infarction] Onset: 10-05-2016 10-05-2016 Chronic Coronary atherosclerosis and other heart disease (8 sources) Atherosclerotic heart disease of [place] coronary artery without angina pectoris; Translations: [Atherosclerotic heart disease of [place] coronary artery without angina pectoris] Onset: 10-05-2016 10-05-2016 Chronic Disorders of lipid metabolism (7 sources) Hyperlipidemia; Translations: [Hyperlipidemia, unspecified] Onset: 10-07-2016 10-07-2016 Chronic Essential hypertension (7 sources) Hypertensive disorder; Translations: [Essential (primary) hypertension] Onset: 10-07-2016 10-07-2016 Chronic Other injuries and conditions due to external causes (1 source) Foreign body in esophagus; Translations: [Unspecified foreign body in esophagus causing other injury, initial encounter] Episodic Unclassified (4 sources) Placement of stent in coronary artery ; Translations: [Presence of coronary angioplasty implant and graft] Onset: 10-05-2016 10-05-2016 Unclassified (3 sources) Long-term drug therapy; Translations: [Other ocean transportation intermediary (current) drug therapy] Onset: 10-07-2016 10-07-2016 Past or Other Problems Problem Classification Problem Date Documented Da te Episodic/Chronic Other aftercare (4 sources) Other ocean transportation intermediary (current) drug therapy; Translations: [Other prison (current) drug therapy] Onset: 10-07-2016 10-07-2016 Episodic Results Test Name Value Interpretation Reference Range Facil ity Vital Signs Date Time Vital Sign Value Performing Clinician Melisa frazier 06-15-2022 10:47-0400 Diastolic Blood Pressure Non-Invasive [address] ROBERT BELTRAN MD [facility] 06-15-2022 10:47-0400 Heart rate 66 /min DR ROBERT BELTRAN MD [facility] 06-15-2022 10:47-0400 Systolic Blood Pressure Non-Invasive [address] ROBERT BELTRAN MD [facility] 06-15-2022 10:43-0400 Diastolic Blood Pressure Non-Invasive [address] ROBERT BELTRAN MD [facility] 06-15-2022 10:43-0400 Heart rate 66 /min DR ROBERT BELTRAN MD [facility] 06-15-2022 10:43-0400 Systolic Blood Pressure Non-Invasive [address] ROBERT BELTRAN MD [facility] 06-15-2022 10:39-0400 Diastolic Blood Pressure Non-Invasive [address] ROBERT BELTRAN MD [facility] 06-15-2022 10:39-0400 Heart rate 62 /min DR ROBERT BELTRAN MD [facility] 06-15-2022 10:39-0400 Systolic Blood Pressure Non-Invasive [address] ROBERT BELTRAN MD [facility] 06-15-2022 10:20-0400 Respiratory Rate - Anes 28 br/min DR ROBERT BELTRAN MD [facility] 06-15-2022 10:15-0400 Respiratory Rate - Anes 15 br/min DR ROBERT BELTRAN MD [facility] 06-15-2022 10:10-0400 Respiratory Rate - Anes 17 br/min DR ROBERT BELTRAN MD [facility] 06-15-2022 09:46-0400 Body height 162.[address] ROBERT BELTRAN MD [facility] 06-15-2022 09:46-0400 Body weight 70.[address] ROBERT BELTRAN MD [facility] 06-15-2022 09:46-0400 Body weight 26.67 kg/m2 DR ROBERT BELTRAN MD [facility] 06-15-2022 09:43-0400 Heart rate 59 /min DR ROBERT BELTRAN MD [facility] 06-15-2022 09:43-0400 Respiratory rate 16 /min DR ROBERT BELTRAN MD [facility] 09-08-2020 12:28-0400 Body height 172.7 cm Delfin Conner [employer] Work Phone: [employer] 09-08-2020 12:28-0400 Body mass index (BMI) [Ratio] 27.11 kg/m2 Delfin Conner [employer] Work Phone: [employer] 09-08-2020 12:28-0400 Body weight 80.88 kg Delfin Conner [employer] Work Phone: [employer] 09-08-2020 12:27-0400 Body temperature 98.49 [degF] Delfin Conner DO Work Phone: [employer] 09-08-2020 12:27-0400 Diastolic blood pressure 75 mm[Hg] Delfin Conner DO Work Phone: [employer] 09-08-2020 12:27-0400 Heart rate 74 /min Delfin Conner DO Work Phone: [employer] 09-08-2020 12:27-0400 Respiratory rate 18 /min Delfin Conner [employer] Work Phone: [employer] 09-08-2020 12:27-0400 SaO2% (BldA) [Mass fraction] 94 % Delfin Conner DO Work Phone: [employer] 09-08-2020 12:27-0400 Systolic blood pressure 145 mm[Hg] Delfin Conner DO Work Phone: [employer] 11-05-2016 12:58-0400 BMI (Body Mass Index) 26.3 kg/m2 Temo Cerna MD [facility] Work Phone: 11-05-2016 12:58-0400 BP Diastolic 60 mm[Hg] Temo Cerna MD [facility] Work Phone: 11-05-2016 12:58-0400 BP Systolic 118 mm[Hg] Temo Cerna MD [facility] Work Phone: 11-05-2016 12:58-0400 Height 172.72 cm Temo Cerna MD [facility] Work Phone: 11-05-2016 12:58-0400 Pulse (Heart Rate) 74 /min Temo Cerna MD [facility] Work Phone: 11-05-2016 12:58-0400 Respiratory Rate 18 /min Temo Cerna MD [facility] Work Phone: 11-05-2016 12:58-0400 Weight 78.47 kg Temo Cenra MD [facility] Work Phone: Encounters Encounter Date Encounter Type Care Provider Facility Start: 06-15-2022 End: 06-15-2022 [facility] ROBERT BELTRAN Facility:B Start: 06-15-2022 End: 06-15-[address] ROBERT BELTRAN MD [facility] Start: 09-08-2020 End: 09-08-2020 Emergency department patient visit Delfin Conner DO Work Phone: [facility] Emergency Department Procedures Date Procedure Procedure Detail Performing Clinician Start: 11-05-2016 End: 11-09-2016 *Hepatic Function Panel Temo Cerna MD Work Phone: Start: 11-05-2016 End: 11-05-2016 DJN Temo Cerna MD Work Phone: Start: 11-05-2016 End: 11-05-2016 Follow Up Appt 6 months Temo Cerna MD Work Phone: Start: 11-05-2016 End: 11-09-2016 Lipid panel [AGGREGATE] Temo Cerna MD Work Phone: Start: 10-12-2016 End: 10-12-2016 Nurse, Teaching, Wound Check (no charge) Temo Cerna MD Work Phone: Start: 10-06-2016 End: 10-30-2016 Stress Echocardiogram (treadmill) Cris Pruitt PA-C Work Phone: Start: 10-05-2016 Placement of stent in coronary artery Status post cardiac stent placement Jemma Corrales RN Spinal decompression with discectomy DR ROBERT BELTRAN MD Plan of Treatment Date Care Activity Detail Author Start: 11-20-2020 Influenza vaccination INFLUENZA VACCINE (Season Ended) [facility] Start: 06-09-2017 End: 11-20-2016 *Hepatic Function Panel *Hepatic Function Panel [facility] Work Phone: Start: 06-09-2017 End: 11-20-2016 Lipid panel [AGGREGATE] *Lipid Profile CC PCP [facility] Work Phone: Start: 05-17-2017 End: 05-17-2017 Appointment Appointment [facility] Work Phone: Start: 11-05-2016 End: 11-05-2016 Appointment Appointment [facility] Work Phone: Start: 11-05-2016 End: 11-09-2016 *Hepatic Function Panel *Hepatic Function Panel [facility] Work Phone: Start: 11-05-2016 End: 11-05-2016 DJN DJN [facility] Work Phone: Start: 11-05-2016 End: 11-05-2016 Follow Up Appt 6 months Follow Up Appt 6 months [facility] Work Phone: Start: 11-05-2016 End: 11-09-2016 Lipid panel [AGGREGATE] *Lipid Profile CC PCP [facility] Work Phone: Start: 10-12-2016 End: 10-12-2016 Appointment Appointment [facility] Work Phone: Start: 10-06-2016 End: 10-06-2016 Stress Echocardiogram (treadmill) Stress Echocardiogram (treadmill) [facility] Work Phone: Start: 10-05-2016 End: 11-06-2016 Cardiac Re[facility] [address] [place], [address] [facility] Work Phone: Start: 2003 Pneumococcal vaccination PNEUMOCOCCAL VACCINE SERIES (1 of 2 - PCV13) [facility] Start: 1988 Zoster vaccine hzv live for subcutaneous use ZOSTER (SHINGLES) VACCINE (1 of 2) [facility] Start: 1983 Colonoscopy COLORECTAL CANCER SCREENING DISCUSSION [facility] Start: 1957 Third diphtheria, tetanus and acellular pertussis (DTaP) vaccination TDAP (ADULT) [facility] Start: 1956 Tetanus vaccination TETANUS [facility] Start: 1950 COVID-19 VACCINE (1) COVID-19 VACCINE (1) [facility] Patient Education HYPERLIPIDEMIA [facility] [facility] Work Phone: Payers Date Payer Category Payer Private Health Insurance [id number] 2020 Private Health Insurance [employer]ET[employer] A ETNA [id number] 2020-Present [id number] 1938 Unknown [id number] Social History Date Type Detail Facility Start: 09-08-2020 End: 06-15-2022 Tobacco smoking status NHIS Former smoker [facility] Functional Status Date Assessment Result Facility 06-15-2022 Functional Status Ambulating in room [facility] 06-15-2022 Functional Status Maintained [facility] Mental Status Date Assessment Result Facility 06-15-2022 Mental Status Orientation Oriented x 4 [facility] 06-15-2022 [facility] Evaluation + Plan note 06-15-2022 Note Date & Type Note Facility LODGE ADMISSION HISTORY AN D PHYSICIAL CHIEF COMPLAINT: HISTORY OF PRESENT ILLNESS: REVIEW OF SYSTEMS: ACTIVE PROBLEMS: (6) Atrial fibrillation (72152236) Dysphagia (13620303) GERD (gastroesophageal reflux disease) (516700255) Hiatal hernia (708599215) NE (myocardial infarction) (39477350) Ulcerative colitis (472935809) MEDICATIONS: Active Inpt Meds: None Active PRN Meds: None One Time Meds: None Active IV Meds: Lactated Ringers Infusion 1,000 mL (LR 1,000 mL) Start: 06/15/22 9:31:00 EDT, Rate: 50 mL/hr, 06/15/22 9:31:00 EDT ALLERGIES: (1) No Known Medication Allergies FAMILY HISTORY: SOCIAL HISTORY: PHYSICAL EXAM: VITALS: [id number](kg) 06/15 09:43----[id number]--14/27 70.5 24 Hr Tmax: No Data Available 36 Hr Tmax: No Data Available Vital Signs are the last 5 in the past 48 hours. Weights display the last 5 within 7 days. Initial Wt: 06/15 70.5 kg 155 lb Current Wt: 06/15 70.5 kg 155 lb GENERAL: HEENT: CARDIOVASCULAR: RESPIRATORY: ABDOMEN: EXREMETIES: NEUROLOGICAL: PSYCHIATRIC: LABS: No 36hr Lab Data DIAGNOSTICS: IMPRESSION: PLAN: History and Physical Update I have examined the patient; reviewed the H&P and there are no changes to the H&P unless noted below. [facility] Hospital Discharge instructions 06-15-2022 Note Date & Type Note Facility 06-15-2022 Hospital Discharge instructions Patient Education 06/15/2022 10:35:03 Monitored Anesthesia Care, Care After Monitored Anesthesia Care, Care After These instructions provide you with information about caring for yourself after your procedure. Your health care provider may also give you more specific instructions. Your treatment has been planned according to current medical practices, but problems sometimes occur. Call your health care provider if you have any problems or questions after your procedure. What can I expect after the procedure? After your procedure, you may: Feel sleepy for several hours. Feel clumsy and have poor balance for several hours. Feel forgetful about what happened after the procedure. Have poor judgment for several hours. Feel nauseous or vomit. Have a sore throat if you had a breathing tube during the procedure. Follow these instructions at home: For at least 24 hours after the procedure: Have a responsible adult stay with you. It is important to have someone help care for you until you are awake and alert. Rest as needed. Do not: ?Participate in activities in which you could fall or become injured. ?Drive. ?Use heavy machinery. ?Drink alcohol. ?Take sleeping pills or medicines that cause drowsiness. ?Make important decisions or sign legal documents. ?Take care of children on your own. Eating and drinking Follow the diet that is recommended by your health care provider. If you vomit, drink water, juice, or soup when you can drink without vomiting. Make sure you have little or no nausea before eating solid foods. General instructions Take lxgj-xkg-bxuncwr and prescription medicines only as told by your health care provider. If you have sleep apnea, surgery and certain medicines can increase your risk for breathing problems. Follow instructions from your health care provider about wearing your sleep device: ?Anytime you are sleeping, including during daytime naps. ?While taking prescription pain medicines, sleeping medicines, or medicines that make you drowsy. If you smoke, do not smoke without supervision. Keep all follow-up visits as told by your health care provider. This is important. Contact a health care provider if: You keep feeling nauseous or you keep vomiting. You feel light-headed. You develop a rash. You have a fever. Get help right away if: You have trouble breathing. Summary For several hours after your procedure, you may feel sleepy and have poor judgment. Have a responsible adult stay with you for at least 24 hours or until you are awake and alert. This information is not intended to replace advice given to you by your health care provider. Make sure you discuss any questions you have with your health care provider. Document Released: 06/28/2016 Document Revised: 06/06/2018 Document Reviewed: 06/28/2016 [employer] Patient Education 2020 [employer]. 06/15/2022 10:35:01 9 - AO Minor Esophagogastroduodenoscopy (06/02) (CUSTOM) Esophagogastroduodenoscopy This is an endoscopic procedure (a procedure that uses a device like a flexible telescope) that allows your caregiver to view the upper stomach and small bowel. This test allows your caregiver to look at the esophagus. The esophagus carries food from your mouth to your stomach. They can also look at your duodenum. This is the first part of the small intestine that attaches to the stomach. This test is used to detect problems in the bowel such as ulcers and inflammation. MEANING OF TEST Your caregiver will go over the test results with you and discuss the importance and meaning of your results, as well as treatment options and the need for additional tests if necessary. OBTAINING THE TEST RESULTS Your caregiver s office will call you with the results of the test. POST SEDATION INSTRUCTIONS Rest at home today. Since your coordination may be impaired, be cautious on stairways, do not drive any vehicle or operate any heavy machinery, or use any sharp instruments for the remainder of the day. Do not drink any alcoholic beverages or make any major decisions for 24 hours. POST PROCEDURE INSTRUCTIONS Progress slowly with full liquids then resume previous diet and medications. Belching or passing of gas is to be expected. Notify the physician if you have severe chest pain, fever, or if difficulty when swallowing persists. 05/30/13 Custom Follow Up Care 05/27/2022 15:02:39 With:ROBERT BELTRAN MD Address: [address] [facility] [address] [place] [address] [phone] When: Unknown Comments:Follow-up as needed [facility] Summary of episode note 06-15-2022 Note Date & Type Note Facility 06-15-2022 Summary of episode note Discharge Instructions Thank you for allowing [facility] to assist you with your healthcare needs. The following is important discharge information regarding your hospital visit. Your Care Team NYDIA KRISHNAMURTHY MD What to do next Follow Up Appointments Follow Up with ROBERT BELTRAN MD When Why: Follow-up as needed Where: [address] [facility] [address] [place] [address]- [phone] Allergies No Known Medication Allergies Medications Please ask your primary doctor or pharmacist before taking any other medication not listed, including over the counter drugs, herbal medications, vitamins and or supplements as they may interact with your home medications. What How Much When Instructions Last Dose Unchanged apixaban (Eliquis 5 mg oral tablet) Unchanged atorvastatin (atorvastatin 20 mg oral tablet) 1 tab(s) by mouth Every day Unchanged balsalazide (balsalazide 750 mg oral capsule) 3 (THREE) CAPSULE BY MOUTH TWO TIMES DAILY, WILL NEED AN OFFICE APPT FOR FURTHER REFILLS Unchanged metoprolol (Lopressor 25mg--USE metoprolol tartrate 25 mg oral tablet) TAKE 1 TABLET BY MOUTH TWICE A DAY Unchanged pantoprazole (pantoprazole 40 mg oral enteric coated tablet) 1 tab(s) by mouth Once a day before a meal Please take this list to your next doctor s visit. Bring all medications you take, including over the counter medications, herbals and other supplements with you to your doctor s visit. Patients and families are reminded to discard old lists and to update any records with all medication providers or retail pharmacies. Education Materials Monitored Anesthesia Care, Care After These instructions provide you with information about caring for yourself after your procedure. Your health care provider may also give you more specific instructions. Your treatment has been planned according to current medical practices, but problems sometimes occur. Call your health care provider if you have any problems or questions after your procedure. What can I expect after the procedure? After your procedure, you may: Feel sleepy for several hours. Feel clumsy and have poor balance for several hours. Feel forgetful about what happened after the procedure. Have poor judgment for several hours. Feel nauseous or vomit. Have a sore throat if you had a breathing tube during the procedure. Follow these instructions at home: For at least 24 hours after the procedure: Have a responsible adult stay with you. It is important to have someone help care for you until you are awake and alert. Rest as needed. Do not: ? Participate in activities in which you could fall or become injured. ? Drive. ? Use heavy machinery. ? Drink alcohol. ? Take sleeping pills or medicines that cause drowsiness. ? Make important decisions or sign legal documents. ? Take care of children on your own. Eating and drinking Follow the diet that is recommended by your health care provider. If you vomit, drink water, juice, or soup when you can drink without vomiting. Make sure you have little or no nausea before eating solid foods. General instructions Take mtau-cfd-wrkudqf and prescription medicines only as told by your health care provider. If you have sleep apnea, surgery and certain medicines can increase your risk for breathing problems. Follow instructions from your health care provider about wearing your sleep device: ? Anytime you are sleeping, including during daytime naps. ? While taking prescription pain medicines, sleeping medicines, or medicines that make you drowsy. If you smoke, do not smoke without supervision. Keep all follow-up visits as told by your health care provider. This is important. Contact a health care provider if: You keep feeling nauseous or you keep vomiting. You feel light-headed. You develop a rash. You have a fever. Get help right away if: You have trouble breathing. Summary For several hours after your procedure, you may feel sleepy and have poor judgment. Have a responsible adult stay with you for at least 24 hours or until you are awake and alert. This information is not intended to replace advice given to you by your health care provider. Make sure you discuss any questions you have with your health care provider. Document Released: 06/28/2016 Document Revised: 06/06/2018 Document Reviewed: 06/28/2016 [employer] Patient Education 2020 [employer]. Esophagogastroduodenoscopy This is an endoscopic procedure (a procedure that uses a device like a flexible telescope) that allows your caregiver to view the upper stomach and small bowel. This test allows your caregiver to look at the esophagus. The esophagus carries food from your mouth to your stomach. They can also look at your duodenum. This is the first part of the small intestine that attaches to the stomach. This test is used to detect problems in the bowel such as ulcers and inflammation. MEANING OF TEST Your caregiver will go over the test results with you and discuss the importance and meaning of your results, as well as treatment options and the need for additional tests if necessary. OBTAINING THE TEST RESULTS Your caregiver s office will call you with the results of the test. POST SEDATION INSTRUCTIONS Rest at home today. Since your coordination may be impaired, be cautious on stairways, do not drive any vehicle or operate any heavy machinery, or use any sharp instruments for the remainder of the day. Do not drink any alcoholic beverages or make any major decisions for 24 hours. POST PROCEDURE INSTRUCTIONS Progress slowly with full liquids then resume previous diet and medications. Belching or passing of gas is to be expected. Notify the physician if you have severe chest pain, fever, or if difficulty when swallowing persists. 05/30/13 Custom Additional Information VACCINATE! IT SAVES LIVES! Members of the community who have not yet received the COVID-19 vaccine and would like to receive it can visit one of [facility] vaccine clinics. There are many vaccine clinic locations within the [facility]. For locations and available times, please visit [email or web address]/. It is important to note that some COVID mobile vaccine clinics are held outdoors and may be canceled in rainy or stormy conditions. To learn more about pediatric vaccinations (ages 5-11), we invite you to visit the [facility] webpage. https://www.[email or web address]/pages/2019 -Eexxt-Ddbsauqdbrn-Orxfoulffi-Asked-Quest ions.html To learn more about the COVID-19 vaccine, we invite you to visit the CDC website for a list of frequently asked questions. https://www.cdc.gov/coronavirus/2019-ncov /vaccines/faq.html [employer] Patient Portal Access Instructions: Stay connected with your healthcare team and access your personal medical information anytime with the [employer] Patient Portal.If you would like a full copy of your medical records, please contact the [facility] Medical Records Department, Wednesday through Wednesday between 8a.m. and 4:30p.m. Please follow the directions below to access the portal: 1.Access the email account you provided upon registration to the hospital.2.Look for an invitation email from [facility].3.Open the email and access the invitation link: Accept Invitation to [employer]4.Fill in the required odom to create your account. Sign into [email or web address] with your username and password that you created in the above steps to stay up to date. You can then view a summary of results, a summary of your visits, and the ability to download your summaries to your computer or send the information securely to a physician. Remember that your healthcare information is confidential, so carefully consider who you will allow to register on the [employer] Patient Portal for access to your information. You can also access the [employer] Patient Portal on the [employer]. Simply click on Health Records under Health Data and then click on the [employer] logo. HOW TO SAFELY DISPOSE OF PRESCRIPTION MEDICATIONS Please use one of the following methods to safely dispose of your unused medications. 1.Use a drug disposal kit: the drug disposal pouch allows you to safely discard your old and unused drugs. Ask your nurse to give you one when you are discharged.2.Visit a local take-back location: Many local pharmacies and police departments have programs that collect old and unwanted prescription drugs. Call your local pharmacy or go to http://Ang[employer] Systems/7U1Ot0g to find one close to you.3.Make use of household items: Use cat litter or old coffee grounds to dispose medications if other options are not available. Mix your drugs with these household products, seal them in an airtight container and throw it into the garbage. Call [facility]: [phone] to be sure your drugs can be disposed of in this way. Some medicines may require a different approach.4.Never flush your medications down the toilet. IF YOU HAVE BEEN PRESCRIBED AN OPIOID FOR PAIN If you have been prescribed an opioid (such as hydrocodone, oxycodone or morphine), it is critical to understand the possible side effects and risks of opioid pain medications. Even when taken as directed, opioids can have several side effects including: Tolerance, meaning you might need to take more of a medication for the same pain relief. Nausea, vomiting and/or constipation. Sleepiness, dizziness, dry mouth, confusion, depression or itching. Physical dependence, meaning you have withdrawal symptoms when a medication is stopped, can develop within a few days. KNOW YOUR RESPONSIBILITIES It is important to know exactly how much and how often to take the opioid pain medications you are prescribed. Never take opioids in higher amounts or more often than prescribed. Do not combine opioids with alcohol or other drugs that cause drowsiness, such as benzodiazepines, also known as benzos, including diazepam and alprazolam, muscle relaxants or sleep aids. Never sell or share prescription opioids. This is illegal. Store opioids in a secure place and out of reach of others (including children, family, friends and visitors). The last page of this document has been signed and retained as a CHART COPY. Signatures Patient Education Materials Monitored Anesthesia Care, Care After 9 - AO Minor Esophagogastroduodenoscopy (06/02) (CUSTOM) Medication Leaflets My discharge plan and instructions have been reviewed and explained to me and I,IRWIN CORDERO understand my current condition and have read and understand these discharge instructions. I have received a written copy of the plan/instructions. If I have questions, I am aware that I should contact my doctor. 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 Signature: Date/Time: Relationship to Patient: Witness Name/Signature: ___ Date/Time: [facility] Anesthesiology Consult note 06-15-2022 Note Date & Type Note Facility 06-15-2022 Anesthesiology Consult note Patient: IRWIN CORDERO Age: 82 years Sex: Male : 1940 Associated Diagnoses: None Author: JACQUIE ARCHER [employer] Assessment Postanesthesia assessment Vitals: Vital signs from flowsheet : Vital Signs 06/15/2022 10:21 EDT Systolic Blood Pressure Non-Invasive 132 mmHg mmHg Diastolic Blood Pressure Non-Invasive 105 mmHg mmHg 06/15/2022 10:20 EDT Heart Rate Monitored 68 bpm bpm Respiratory Rate - Anes 28 br/min br/min 06/15/2022 10:15 EDT Heart Rate Monitored 63 bpm bpm Respiratory Rate - Anes 15 br/min br/min Systolic Blood Pressure Non-Invasive 120 mmHg mmHg Diastolic Blood Pressure Non-Invasive 77 mmHg mmHg 06/15/2022 10:10 EDT Heart Rate Monitored 60 bpm bpm Respiratory Rate - Anes 17 br/min br/min Systolic Blood Pressure Non-Invasive 135 mmHg mmHg Diastolic Blood Pressure Non-Invasive 71 mmHg mmHg 06/15/2022 9:43 EDT Peripheral Pulse Rate 59 bpm LOW Respiratory Rate 16 br/min Systolic Blood Pressure Non-Invasive 146 mmHg HI Diastolic Blood Pressure Non-Invasive 69 mmHg , Measurements from flowsheet . Mental status: alert & oriented x 4. Respiratory function: respirations are non-labored. Respiratory support: none. CV function: Normal rate. Cardiovascular support: none. Pain. Nausea status: see nursing documentation of medications. Postoperative hydration status: within normal limits. Digitally Signed by JACQUIE ARCHER on 06/15/2022 10:26 AM [facility] Anesthesiology Consult note 06-15-2022 Note Date & Type Note Facility 06-15-2022 Anesthesiology Consult note Patient: IRWIN CORDERO Age: 82 years Sex: Male : 1940 Associated Diagnoses: None Author: JACQUIE ARCHER Preoperative Information Time of last food or liquid consumption: 06/15/2022 00:00:00 Anesthesia history Patient's history: negative. Family's history: negative. Health Status Allergies: Allergic Reactions (Selected) No Known Medication Allergies, Allergies (1) ActiveReaction No Known Medication AllergiesNone Documented Current medications: (Selected) Inpatient Medications Ordered LR 1,000 mL: 50 mL/hr, Intravenous Documented Medications Documented Eliquis 5 mg oral tablet: 0 Refill(s) Lopressor 25mg--USE metoprolol tartrate 25 mg oral tablet: TAKE 1 TABLET BY MOUTH TWICE A DAY atorvastatin 20 mg oral tablet: 20 mg, 1 tab(s), Oral, Daily, 0 Refill(s) balsalazide 750 mg oral capsule: 3 (THREE) CAPSULE BY MOUTH TWO TIMES DAILY, WILL NEED AN OFFICE APPT FOR FURTHER REFILLS pantoprazole 40 mg oral enteric coated tablet: 40 mg, 1 tab(s), Oral, qDayAC, 0 Refill(s), Medications (1) Active Scheduled: (0) Continuous: (1) Lactated Ringers 1,000 mL 1,000 mL, Intravenous, 50 mL/hr PRN: (0) Problem list: Active Problems (6) Atrial fibrillation Dysphagia GERD (gastroesophageal reflux disease) Hiatal hernia NE (myocardial infarction) Ulcerative colitis Histories Past Medical History: No active or resolved past medical history items have been selected or recorded. Family History: Heart disease Father Procedure history: Spinal decompression with discectomy ([id number]). Comments: 06/15/2022 9:39 JOHNNY - Anuj Tejada RN lumbar Social History Social & Psychosocial Habits Alcohol 06/15/2022 Use: Never Substance Abuse 06/15/2022 Use: Never Tobacco 06/15/2022 Tobacco Use: Former smoker, quit more Comment: QUIT IN THE 80s - 06/15/2022 09:41 - Anuj Tejada RN Home/Environment 06/15/2022 Domestic Concerns None Living situation: Home/Independent Marital Status of Patient if Patient Independent Adult: Nutrition/Health 06/15/2022 Type of diet: Regular Appetite Good Eating Difficulties Swallowing . Physical Examination Vital Signs 06/15/2022 9:43 EDT Peripheral Pulse Rate 59 bpm LOW Respiratory Rate 16 br/min Systolic Blood Pressure Non-Invasive 146 mmHg HI Diastolic Blood Pressure Non-Invasive 69 mmHg Vital Signs(last 24 hrs) Last Charted Resp Rate 16 br/min (JUN 15 09:43) SBPH 146mmHg (JUN 15 09:43) DBP69 mmHg (JUN 15 09:43) BMI26.67 (JUN 15 09:46) Measurements from flowsheet : Measurements 06/15/2022 9:46 EDT Height 162.6 cm Admission Weight 70.5 kg Talmage Body Weight 59.24 kg BSA Admission 1.76 Body Mass Index 26.67 kg/m2 Pain assessment: Pain Assessment 06/15/2022 9:43 EDT Primary Pain Intensity 0 Pain Scale Type 0-10 Pain scale . General: Alert and oriented. Airway: Normal temporomandibular joint mobility, Normal mouth, Normal neck range of motion. Mallampati classification: II (soft palate, fauces, uvula visible). Dentition Evaluation: Denies loose/chipped teeth. Respiratory: Respirations are non-labored. Cardiovascular: Normal rate. Neurologic: Alert, Oriented. Review / Management Results review: No qualifying data available , Lab results 06/15/2022 10:09 EDT SN - GCD - ASA Class 3 06/15/2022 10:07 EDT SN - Proc - Anesthesia Type MAC SN - Proc - EBL 0 mL SN - Proc - Actual Procedure ESOPHAGOGASTRODUODENOSCOPY WITH DILATION 06/15/2022 10:06 EDT SN - PP - Body Position Lateral Right Side-up Standard Intra-op 06/15/2022 10:05 EDT SN - GCD - Post-operative Diagnosis DYSPHAGIA SN - GCD - Case Level OPD Level 3 06/15/2022 10:04 EDT SN - CAt - Case Attendee SN - CAt - Case Attendee SN - CAt - Case Attendee SN - CAt - Case Attendee SN - CAt - Case Attendee SN - CAt - Case Attendee SN - CAt - Case Attendee SN - CAt - Case Attendee SN - CAt - Role Performed [employer] SN - CAt - Role Performed Procedure Nurse SN - CAt - Role Performed Dance Professor SN - CAt - Role Performed Primary Surgeon 06/15/2022 9:56 EDT Lactated Ringers Injection Begin Bag 1,000 mL mL 06/15/2022 9:55 EDT Forearm Right 06/15/2022 22 gauge Peripheral IV Activity: Insert new site Peripheral IV Dressing Condition: Clean, Dry, Intact Peripheral IV Dressing Activity: Applied Peripheral IV Line Status/Patency: Flushes easily Peripheral IV Site Condition: No complications Peripheral IV Equipment: Extension set Peripheral IV Number of Attempts: 1 06/15/2022 9:46 EDT Designated Person #1 We May Share GHAZALA CORDERO [phone] Designated Person #1 Relationship Spouse Height 162.6 cm Admission Weight 70.5 kg Tal[place] Body Weight 59.24 kg BSA Admission 1.76 Body Mass Index 26.67 kg/m2 Status N/A Sensory Deficits None Infectious Disease Symptoms Cough, Shortness of breath Infectious Disease Recent Exposure No Alcohol and Drug Use No Employee of Institutional Living No Health Care Employee No History of Exposure to TB No History of Positive Chest X-Ray for TB No History of Positive TB Skin Test No Homeless No Known Immunosuppression No Recent Immigrant No Resident of Institutional Living No Bloody Sputum No Fatigue No Fever No Loss of Appetite No Night Sweats No Persistent Cough > 3 Weeks No Weight Loss No Barriers to Learning None evident Teaching Method Explanation Preferred Written Language Indian Preferred Spoken Language Indian Information Given by Patient Patient's Current Physicians RAGHU Discharge To, Anticipated Home independently Prev Test Positive/Diagnosis w/COVID-19 Yes Previous COVID-19 Positive Date 02/10 Current Quarantine/Isolated any Illness No Any Contact with Sick Animals/Birds No Traveled Anywhere in Last 30 Days No N/A Personal Devices, Patient Valuables Glasses Admission Note-Nursing Procedure/Therapy Intake 06/15/2022 9:43 EDT Peripheral Pulse Rate 59 bpm LOW Respiratory Rate 16 br/min Systolic Blood Pressure Non-Invasive 146 mmHg HI Diastolic Blood Pressure Non-Invasive 69 mmHg Primary Pain Intensity 0 Pain Scale Type 0-10 Pain scale Heart Rhythm Regular Oxygen Saturation 97 % Abdomen Description Non-distended, Symmetric Abdomen Palpation Non-Tender Bowel Sounds All Quadrants Present Skin Temperature Warm Skin Description Normal for ethnicity Skin Integrity Intact Characteristics of Speech Hoarse Level of Consciousness Alert Strength All Extremities Strong Tone All Extremities Normal Sensation All Extremities Intact Affect/Behavior Appropriate, Calm, Cooperative Orientation Oriented x 4 Allergies Yes Consent Form Signed Yes Patient Dressed In Hospital gown History & Physical On Chart Yes Belongings At Bedside Pants, Shirt, Shoes Activity Status ADL Awake, Resting NPO Status Maintained Standard Safety ID band on, Call device within reach, Bed in low position, Wheels locked, Upper/Half-Length side-rails up, personal items within reach, Visitor at bedside, Safety level maintained Patient ID Band on and Verified Yes Implants Verified Yes Pacemaker/AICD Verified Yes Last Fluid Intake 06/15/2022 7:15 Last Food Intake 06/14/2022 18:00 . Assessment and Plan [place] [employer]esthesi[employer] (ASA) physical status classification: Class III. Anesthetic Preoperative Plan Anesthetic technique: MAC. Informed consent: signed by patient. Digitally Signed by JACQUIE ARCHER on 06/15/2022 10:13 AM [facility] Clinical Note 06-15-2022 Note Date & Type Note Facility 06-15-2022 Note [facility] ADMISSION HISTORY AND PHYSICIAL CHIEF COMPLAINT: HISTORY OF PRESENT ILLNESS: REVIEW OF SYSTEMS: ACTIVE PROBLEMS: (6) Atrial fibrillation (94521386) Dysphagia (02806655) GERD (gastroesophageal reflux disease) (584764215) Hiatal hernia (146011266) NE (myocardial infarction) (42712391) Ulcerative colitis (766314143) MEDICATIONS: Active Inpt Meds: None Active PRN Meds: None One Time Meds: None Active IV Meds: Lactated Ringers Infusion 1,000 mL (LR 1,000 mL) Start: 06/15/22 9:31:00 EDT, Rate: 50 mL/hr, 06/15/22 9:31:00 EDT ALLERGIES: (1) No Known Medication Allergies FAMILY HISTORY: SOCIAL HISTORY: PHYSICAL EXAM: VITALS: [id number](kg ) 06/15 09:43----[id number]--00/27 70.5 24 Hr Tmax: No Data Available 36 Hr Tmax: No Data Available Vital Signs are the last 5 in the past 48 hours. Weights display the last 5 within 7 days. Initial Wt: 06/15 70.5 kg 155 lb Current Wt: 06/15 70.5 kg 155 lb GENERAL: HEENT: CARDIOVASCULAR: RESPIRATORY: ABDOMEN: EXREMETIES: NEUROLOGICAL: PSYCHIATRIC: LABS: No 36hr Lab Data DIAGNOSTICS: IMPRESSION: PLAN: History and Physical Update I have examined the patient; reviewed the H&P and there are no changes to the H&P unless noted below. Digitally Signed by ROBERT BELTRAN MD on 06/15/2022 10:12 AM [facility] Emergency department Note 09-08-2020 Hali Adames RN - 09/08/2020 1:14 PM Delfin Sanders DO - 09/08/2020 12:54 PM EDHali Mesa RN - 09/08/2020 12:23 PM EDTMignon Alba RN - 09/08/2020 12:19 PM EDT Note Date & Type Note Facility 09-08-2020 Emergency departm ent Note Pt drinking water without difficulty Emergency Department Report [facility] EMERGENCY DEPARTMENT Service Date:.09/08/20 PCP: Nydia Krishnamurthy Chief Complaint: Chief Complaint Patient presents with Foreign Body Swallowed Pt arrives via EMS with c/o choking on steak at a restaraunt where the Heimlich was performed. Food particle was expelled however, pt states he still feels like something is slightly stuck. No dyspnea noted HPI Kiel Cordero is a 80 y.o. male presents to the ED today due to It sounds like the patient had a significant steak foreign body prior to coming emergency room. He was eating a fillet mignon steak. It ended up getting stuck and he had inability to swallow saliva and he had choking. Family members did Heimlich maneuvers on him and after her period of time, he managed to spit out the piece of meat and at this time he feels that he is swallowing appropriately. He states that he still has a little bit of a sensation of something being there but saliva and fluids appear to be going down well. Does not sound like he has significant issues with dysphagia or swallowing in the past. Likely stricture or other situations appear to be probably not considerations at least today. Review of Systems: Recent bronchitic illness. No significant issues with swallowing due to been progressive or bothersome in recent months. Do not reviewed. Patient had a steak foreign body that appears to be likely resolved. Review of Systems Past Medical History: No past medical history on file. Past Surgical History: No past surgical history on file. Allergies: No Known Allergies Medications: Patient's Medications New Prescriptions No medications on file Previous Medications APIXABAN 5 MG TABLET Take by mouth every 12 hours. ASPIRIN 81 MG CHEW TAB CHEWABLE TABLET Chew 81 mg daily. ATORVASTATIN 10 MG TABLET Take 10 mg by mouth daily. ATROPINE SULFATE (ATROPINE IJ) Inject as directed. BALSALAZIDE DISODIUM PO Take by mouth. Modified Medications No medications on file Discontinued Medications No medications on file Family History: History reviewed. No pertinent family history. Social History: Social History Socioeconomic History Marital status: Spouse name: Not on file Number of children: Not on file Years of education: Not on file Highest education level: Not on file Occupational History Not on file Tobacco Use Smoking status: Former Smoker Smokeless tobacco: Never Used Vaping Use Vaping Use: Never used Substance and Sexual Activity Alcohol use: Not Currently Drug use: Never Sexual activity: Not on file Other Topics Concern Not on file Social History Narrative Not on file Social Determinants of Health Financial Resource Strain: Difficulty of Paying Living Expenses: Food Insecurity: Worried About Running Out of Food in the Last Year: Ran Out of Food in the Last Year: Transportation Needs: Lack of Transportation (Medical): Lack of Transportation (Non-Medical): Physical Activity: Days of Exercise per Week: Minutes of Exercise per Session: Stress: Feeling of Stress : Social Connections: Frequency of Communication with Friends and Family: Frequency of Social Gatherings with Friends and Family: Attends Gn[employer] Services: Active Member of Clubs or Organizations: Attends Club or Organization Meetings: Marital Status: Intimate Partner Violence: Fear of Current or Ex-Partner: Emotionally Abused: Physically Abused: Sexually Abused: Physical Exam: @PHYSICALEXAM@ Patient is awake alert and active. Vital signs were reviewed. Mental status is good. He seems to be wanting to go home because he states that he is feeling well. The heart is regular rate and rhythm. No arrhythmias. Lungs cannot demonstrate respiratory distress and aspiration seems to be unlikely. Abdomen thin and soft. Bowel sounds present. Mucosa moist. Skin turgor is good. Swallowing saliva well. He was given fluids any swallowing fluids well. Vital Signs During ED Visit Patient Vitals for the past 24 hrs: BP Temp Temp src Pulse Resp SpO2 Height Weight 09/08/20 1228 1.727 m (5' 8 ) 80.9 kg (178 lb 4.8 oz) 09/08/20 1227 145/75 98.5 F (36.9 C) Oral 74 18 94 % Differential Diagnosis: Esophageal foreign body now apparently resolved Orders/Results: Orders Placed This Encounter apixaban 5 MG tablet Atropine Sulfate (ATROPINE IJ) atorvastatin 10 MG tablet BALSALAZIDE DISODIUM PO aspirin 81 MG Chew Tab chewable tablet No results found for this or any previous visit. Radiographic Imaging No orders to display Lab/Imaging Results Summary: None required Moderate Sedation: Procedures: Procedures Progress Notes/Re-evaluation: Discharged ED Summary: The patient feels that is foreign bodies resolved and wants to go home. I told him that would liked watching this for sure. Time to make sure that he continues to be doing well and I wanted to make sure that he was able to drink fluids so glass of water was given. I do not think that he needs blood work or x-rays at this time. Do not think a need to call anybody to come in to perform a scope on him at this time. Think that he swallowing fluids. Referral for gastroscopy esophagoscopy does not appear to be immediately necessary based upon history. Clinical Impression: Acute esophageal foreign body meat now resolved No diagnosis found. No follow-ups on file. New Prescriptions No medications on file Discontinued Medications No medications on file An After Visit Summary was printed and given to the patient with above information. . Delfin Conner DO 09/08/20 1257 Pt states has a little bit of a sore throat. States has bronchitis so is coughing due to that. Denies rib or chest pain Bed: E011 Expected date: Expected time: Means of arrival: Comments: EMS documented in this encounter [facility] Evaluation note Note Date & Type Note Facility documented in this encounter [facility] Hospital course Narrative Note Date & Type Note Facility Hospital course Narrative No data available for this section [facility] Hospital Discharge instructions Attachments Note Date & Type Note Facility Hospital Discharge instructions The following attachments cannot be sent through Care Everywhere.Foreign Body in Throat or Esophagus (Indian)documented in this encounter [facility] Summary Purpose Family History No Family History Records Found Advance Directives No Advanced Directives Records Found Additional Source Comments Reason for Visit (unrecogniz ed section and content) Patient Care team informatio n (unrecognized section and content) Care Team Personnel Name: NYDIA KRISHNAMURTHY MD Member Role: Primary Care Physician Address: Address: [facility] [place] [address]- Care Team Related Persons Name: ORLY CORDERO Address: Home [address] [place] [address] (unrecognized sect ion and content) No Status Records Found INFORMATION SOURCE (unrecogn ized section and content) FOR RECORDS PERTAINING TO PATIENTS WHO ARE OR HAVE BEEN ENROLLED IN A CHEMICAL DEPENDENCY/SUBSTANCEABUSE PROGRAM, SOME INFORMATION MAY BE OMITTED. This clinical summary was aggregated from multiple sources. Caution should be exercised in using it in the provision of clinical care. This summary normalizes information from multiple sources, and as a consequence, information in this document may materially change the coding, format and clinical context of patient data. In addition, data may be omitted in some cases. CLINICAL DECISIONS SHOULD BE BASED ON THE PRIMARY CLINICAL RECORDS. [employer] provides no warranty or guarantee of the accuracy or completeness of information in this document.
== END 2023-03-16 13:12 | disposition home or self-care (01) ==
PROVIDERS: Emergency Provider Student in an Organized Health Care Education/Training Program; PCP Family Medicine Geriatric Medicine; Referring Provider Student in an Organized Health Care Education/Training Program; Visit Provider Student in an Organized Health Care Education/Training Program
DX: M54.9 Dorsalgia, unspecified (principal); I20.0 Unstable angina; Z87.891 Personal history of nicotine dependence; R53.1 Weakness; R42 Dizziness and giddiness; I25.10 Atherosclerotic heart disease of native coronary artery without angina pectoris; I25.2 Old myocardial infarction; Z85.828 Personal history of other malignant neoplasm of skin; Z79.899 Other long term (current) drug therapy; E78.5 Hyperlipidemia, unspecified; K21.9 Gastro-esophageal reflux disease without esophagitis; I10 Essential (primary) hypertension; Z95.5 Presence of coronary angioplasty implant and graft
CPT/HCPCS: 71045; 80048; 83880; 84484; 85025; 93005; 99284; A4216

== ENCOUNTER 2023-03-16 12:46 | Outpatient (CLI) | payer MEDICARE, OTHER, SELFPAY ==
[2016-10-05 13:30] VITALS: BMI 26.1
== END 2023-03-16 23:59 | disposition home or self-care (01) ==
LOC: CVS 12:52
PROVIDERS: PCP Family Medicine Geriatric Medicine; Referring Provider Student in an Organized Health Care Education/Training Program; Visit Provider Student in an Organized Health Care Education/Training Program
DX: R42 Dizziness and giddiness (principal); R00.1 Bradycardia, unspecified; R00.0 Tachycardia, unspecified; I49.1 Atrial premature depolarization; I49.3 Ventricular premature depolarization

== ENCOUNTER → 2023-05-24 | Outpatient (CLI) | payer MEDICARE, SELFPAY ==
[2016-10-05 13:30] VITALS: BMI 26.1
--- OUTSIDE RECORDS SUMMARY | 2023-05-24 08:51 | XMS RPT_ITS | CCD ---
Author Name Unknown Address [address] [place] [address] Organization [facility] Care Team Providers Care Radio Interference Investigator Name Role Phone Maryjane Murphy Carlota Unavailable [...] oral tablet (7 sources) Dihydropyridine Calcium Channel Niacnor Start: 10-07-2016 take 1 tablet by mouth once daily AMLODIPINE BESYLATE 10 MG TABS One tablet by mouth daily AMLODIPINE BESYLATE [id number] Temo Cerna MD aspirin 81 mg delayed release oral tablet (8 sources) Nonsteroidal Anti-inflammatory Drug Start: 10-07-2016 take 1 tablet by mouth once daily ASPIRIN EC 81 MG TBEC One tablet by mouth daily ASPIRIN [id number] Jemma M Kilner, RN Problems Active Problems Problem Classification Problem Date Documented Date Episodic/Chronic Acute myocardial infarction (8 sources) Non-ST elevation (NSTEMI) myocardial infarction; Translations: [Non-ST elevation (NSTEMI) myocardial infarction] Onset: 10-05-2016 10-05-2016 Chronic Coronary atherosclerosis and other heart disease (8 sources) Atherosclerotic heart disease of [place] coronary artery without angina pectoris; Translations: [Atherosclerotic heart disease of [place] coronary artery without angina pectoris] Onset: 10-05-2016 [...] (3 sources) Long-term drug therapy; Translations: [Other mcc (current) drug therapy] Onset: 10-07-2016 10-07-2016 Past or Other Problems Problem Classification Problem Date Documented Da te Episodic/Chronic Other aftercare (4 sources) 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; Translations: [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] Onset: 10-07-2016 10-07-2016 Episodic Results Test Name Value Interpretation Reference Range Facil ity Vital Signs Date Time Vital Sign Value Performing Clinician Melisa frazier 06-15-2022 10:47-0400 Diastolic Blood Pressure Non-Invasive [address] ROBERT BELTRAN MD [facility] 06-15-2022 10:47-0400 Heart rate 66 /min DR ROBERT BELTRAN MD [facility] 06-15-2022 10:47-0400 Systolic Blood Pressure Non-Invasive [address] ROBERT BELTRAN MD [facility] 06-15-2022 10:43-0400 Diastolic Blood Pressure Non-Invasive [address] ROBERT BELTRAN MD [facility] 06-15-2022 10:43-0400 Heart rate 66 /min DR ROBERT BELTRAN MD [facility] 06-15-2022 10:43-0400 Systolic Blood Pressure Non-Invasive [address] ROBERT BELTRAN MD [facility] 06-15-2022 10:39-0400 Diastolic Blood Pressure Non-Invasive [address] ROBERT BELTRAN MD [facility] 06-15-2022 10:39-0400 Heart rate 62 /min DR ROBERT BELTRAN MD [facility] 06-15-2022 10:39-0400 Systolic Blood Pressure Non-Invasive [address] ROBERT BELTRAN MD [facility] 06-15-2022 10:20-0400 Respiratory Rate - Anes 28 br/min DR ROBERT BELTRAN MD [facility] 06-15-2022 10:15-0400 Respiratory Rate - Anes 15 br/min DR ROBERT BELTRAN MD [facility] 06-15-2022 10:10-0400 Respiratory Rate - Anes 17 br/min DR ROBERT BELTRAN MD [facility] 06-15-2022 09:46-0400 Body height 162.[address] ROBERT BELTRAN MD [facility] 06-15-2022 09:46-0400 Body weight 70.[address] ROBERT BELTRAN MD [facility] 06-15-2022 09:46-0400 Body weight 26.67 kg/m2 DR ROBERT BELTRAN MD [facility] 06-15-2022 09:43-0400 Heart rate 59 /min DR ROBERT BLETRAN MD [facility] 06-15-2022 09:43-0400 Respiratory rate 16 /min DR ROBERT BELTRAN MD [facility] 09-08-2020 12:28-0400 Body height 172.7 cm Delfin Conner [employer] Work Phone: [employer] 09-08-2020 12:28-0400 Body mass index (BMI) [Ratio] 27.11 kg/m2 [employer]in [employer] Work Phone: [facility] 09-08-2020 12:28-0400 Body weight 80.88 kg Delfin [employer]ner [employer] Work Phone: [facility] 09-08-2020 12:27-0400 Body temperature 98.49 [degF] Delfin Conner DO Work Phone: [facility] 09-08-2020 12:27-0400 Diastolic blood pressure 75 mm[Hg] Delfin Conner DO Work Phone: [facility] 09-08-2020 12:27-0400 Heart rate 74 /min Delfin Conner DO Work Phone: [facility] 09-08-2020 12:27-0400 Respiratory rate 18 /min Delfin [employer] Work Phone: [facility] 09-08-2020 12:27-0400 SaO2% (BldA) [Mass fraction] 94 % Delfin Conner DO Work Phone: [facility] 09-08-2020 12:27-0400 Systolic blood pressure 145 mm[Hg] Delfin Conner DO Work Phone: [employer] 11-05-2016 12:58-0400 BMI (Body Mass Index) 26.3 kg/m2 Temo Cerna MD [facility] Work Phone: 11-05-2016 12:58-0400 BP Diastolic 60 mm[Hg] Temo Cerna MD [facility] Work Phone: 11-05-2016 12:58-0400 BP Systolic 118 mm[Hg] Temo Cerna MD [facility] Work Phone: 11-05-2016 12:58-0400 Height 172.72 cm Temo Cerna MD [facility] Work Phone: 11-05-2016 12:58-0400 Pulse (Heart Rate) 74 /min Temo Cerna MD [facility] Work Phone: 11-05-2016 12:58-0400 Respiratory Rate 18 /min Temo Cerna MD [facility] Work Phone: 11-05-2016 12:58-0400 Weight 78.47 kg Temo Cerna MD [facility] Work Phone: Encounters Encounter Date Encounter Type Care Provider Facility Start: 06-15-2022 End: 06-15-2022 [facility] ROBERT BELTRAN Facility:B Start: 06-15-2022 End: 06-15-[address] ROBERT BELTRAN MD [facility] Start: 09-08-2020 End: 09-08-2020 Emergency department patient visit Delfin Conner DO Work Phone: [facility] Emergency Department Procedures Date Procedure Procedure Detail [...] 11-20-2020 Influenza vaccination INFLUENZA VACCINE (Season Ended) [facility] Start: 06-09-2017 End: 11-20-2016 *Hepatic Function Panel *Hepatic Function Panel [facility] Work Phone: Start: 06-09-2017 End: 11-20-2016 Lipid panel [AGGREGATE] *Lipid Profile CC PCP [facility] Work Phone: Start: 05-17-2017 End: 05-17-2017 Appointment Appointment [facility] Work Phone: Start: 11-05-2016 End: 11-05-2016 Appointment Appointment [facility] Work Phone: Start: 11-05-2016 End: 11-09-2016 *Hepatic Function Panel *Hepatic Function Panel [facility] Work Phone: Start: 11-05-2016 End: 11-05-2016 DJN DJN [facility] Work Phone: Start: 11-05-2016 End: 11-05-2016 Follow Up Appt 6 months Follow Up Appt 6 months [facility] Work Phone: Start: 11-05-2016 End: 11-09-2016 Lipid panel [AGGREGATE] *Lipid Profile CC PCP [facility] Work Phone: Start: 10-12-2016 End: 10-12-2016 Appointment Appointment [facility] Work Phone: Start: 10-06-2016 End: 10-06-2016 Stress Echocardiogram (treadmill) Stress Echocardiogram (treadmill) [facility] Work Phone: Start: 10-05-2016 End: 11-06-2016 [facility] [address] [place], [address] [facility] Work Phone: Start: 2003 Pneumococcal vaccination PNEUMOCOCCAL VACCINE SERIES (1 of 2 - PCV13) [facility] Start: 1988 Zoster vaccine hzv live for subcutaneous use ZOSTER (SHINGLES) VACCINE (1 of 2) [facility] Start: 1983 Colonoscopy COLORECTAL CANCER SCREENING DISCUSSION [facility] Start: 1957 Third diphtheria, tetanus and acellular pertussis (DTaP) vaccination TDAP (ADULT) [facility] Start: 1956 Tetanus vaccination TETANUS [facility] Start: 1950 COVID-19 VACCINE (1) COVID-19 VACCINE (1) [facility] Patient Education HYPERLIPIDEMIA [facility] Work Phone: Payers Date Payer Category Payer Private Health Insurance 101 [id number] 2020 Private Health Insurance AET[employer] A ETNA [id number] 2020-Present [id number] 1940 Unknown [id number] Social History Date Type Detail Facility Start: 09-08-2020 End: 06-15-2022 Tobacco smoking status NHIS Former smoker [facility] Functional Status Date Assessment Result Facility 06-15-2022 Functional Status Ambulating in room [facility] 06-15-2022 Functional Status Maintained [facility] Mental Status Date Assessment Result Facility 06-15-2022 Mental Status Orientation Oriented x 4 [facility] 06-15-2022 [facility] Evaluation + Plan note 06-15-2022 Note Date & Type Note Facility [facility] ADMISSION HISTORY AN D PHYSICIAL CHIEF COMPLAINT: HISTORY OF PRESENT ILLNESS: REVIEW OF SYSTEMS: ACTIVE PROBLEMS: (6) Atrial fibrillation (08905323) Dysphagia (47618484) GERD (gastroesophageal reflux disease) (235698419) Hiatal hernia (455161976) IL (myocardial infarction) (89650652) Ulcerative colitis (175183451) MEDICATIONS: Active Inpt Meds: None Active PRN Meds: None One Time Meds: None Active IV Meds: Lactated Ringers Infusion 1,000 mL (LR 1,000 mL) Start: 06/15/22 9:31:00 EDT, Rate: 50 mL/hr, 06/15/22 9:31:00 EDT ALLERGIES: (1) No Known Medication Allergies FAMILY HISTORY: SOCIAL HISTORY: PHYSICAL EXAM: VITALS: QqexvrFoupCDXiwmmVFRmY5JJI7ZuloHq(kg) 06/15 09:43----616161--45/27 70.5 24 Hr Tmax: No Data Available [...] changes to the H&P unless noted below. [facility] Hospital Discharge instructions 06-15-2022 Note Date & [...] before eating solid foods. General instructions Take qznk-tbc-ldkggsg and prescription medicines only as told by [...] 06/28/2016 Document Revised: 06/06/2018 Document Reviewed: 06/28/2016 [employer] Patient Education 2020 [employer]. 06/15/2022 10:35:01 9 - AO Minor Esophagogastroduodenoscopy [...] 15:02:39 With:ROBERT BELTRAN MD Address: [address] [facility] [address] [place] [address] [phone] When: Unknown Comments:Follow-up as needed [facility] Summary of episode note 06-15-2022 Note Date & Type Note Facility 06-15-2022 Summary of episode note Discharge Instructions Thank you for allowing [facility] to assist you with your healthcare needs. The following is important discharge information regarding your hospital visit. Your Care Team NYDIA KRISHNAMURTHY MD What to do next Follow Up Appointments Follow Up with ROBERT BELTRAN MD When Why: Follow-up as needed Where: [address] [facility] [address] [place] [address]- [phone] Allergies No Known Medication Allergies Medications Please [...] before eating solid foods. General instructions Take ijec-dch-mzdobhb and prescription medicines only as told by [...] 06/28/2016 Document Revised: 06/06/2018 Document Reviewed: 06/28/2016 [employer] Patient Education 2020 [employer]. Esophagogastroduodenoscopy This is an endoscopic procedure (a [...] to receive it can visit one of [facility] vaccine clinics. There are many vaccine clinic locations within the [facility]. For locations and available times, please visit [email or web address] It is important to note that some COVID mobile vaccine clinics are held outdoors and may be canceled in rainy or stormy conditions. To learn more about pediatric vaccinations (ages 5-11), we invite you to visit the [facility] webpage. [email or web address]/[email or web address] -Qdghv-Nwerytgzgut-Htygbefegz-Asked-Quest ions.html To learn more about the COVID-19 vaccine, we invite you to visit the CDC website for a list of frequently asked questions. https://www.cdc.gov/coronavirus/2019-ncov /vaccines/faq.html [facility] Patient Portal Access Instructions: Stay connected with your healthcare team and access your personal medical information anytime with the [facility] Patient Portal.If you would like a full copy of your medical records, please contact the [facility] Medical Records Department, Wednesday through Wednesday between 8a.m. and 4:30p.m. Please follow the directions below to access the portal: 1.Access the email account you provided upon registration to the hospital.2.Look for an invitation email from [facility].3.Open the email and access the invitation link: Accept Invitation to [facility].Fill in the required odom to create your account. Sign into [email or web address] with your username and password that you [...] you will allow to register on the [facility] Patient Portal for access to your information. You can also access the [facility] Patient Portal on the [employer] andressa. Simply click on Health Records under Health Data and then click on the [employer] logo. HOW TO SAFELY DISPOSE OF PRESCRIPTION [...] Call your local pharmacy or go to [email or web address] to find one close to you.3.Make use of household items: Use cat litter or old coffee grounds to dispose medications if other options are not available. Mix your drugs with these household products, seal them in an airtight container and throw it into the garbage. Call [facility]: [phone] to be sure your drugs can be [...] aware that I should contact my doctor. 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 Family History: Heart disease Father Procedure history: Spinal decompression with discectomy ([id number]). Comments: 06/15/2022 9:39 JOHNNY - Anuj Tejada [...] Height 162.6 cm Admission Weight 70.5 kg Lund Body Weight 59.24 kg BSA Admission 1.76 [...] Attendee SN - CAt - Role Performed DENTAL LABORATORY MANAGER SN - CAt - Role Performed Procedure Nurse SN - CAt - Role Performed Director Internal Audit SN - CAt - Role Performed Primary [...] Person #1 We May Share GHAZALA CORDERO [phone] Designated Person #1 Relationship Spouse Height 162.6 cm Admission Weight 70.5 kg Lund Body Weight 59.24 kg BSA Admission 1.76 [...] evident Teaching Method Explanation Preferred Written Language Greenlandic Preferred Spoken Language Greenlandic Information Given by Patient Patient's Current Physicians [...] Intake 06/14/2022 18:00 . Assessment and Plan [place] [employer] Anesthesiologists (ASA) physical status classification: Class III. Anesthetic Preoperative Plan Anesthetic technique: MAC. Informed consent: signed by patient. Digitally Signed by JACQUIE ARCHER on 06/15/2022 10:13 AM [facility] Clinical Note 06-15-2022 Note Date & Type Note Facility 06-15-2022 Note [facility] ADMISS[facility] HISTORY AND PHYSICIAL CHIEF COMPLAINT: HISTORY OF PRESENT ILLNESS: REVIEW OF SYSTEMS: ACTIVE PROBLEMS: (6) Atrial fibrillation (72880650) Dysphagia (95756616) GERD (gastroesophageal reflux disease) (131587380) Hiatal hernia (294538710) IL (myocardial infarction) (03211550) Ulcerative colitis (587915749) MEDICATIONS: Active Inpt Meds: None Active PRN Meds: None One Time Meds: None Active IV Meds: Lactated Ringers Infusion 1,000 mL (LR 1,000 mL) Start: 06/15/22 9:31:00 EDT, Rate: 50 mL/hr, 06/15/22 9:31:00 EDT ALLERGIES: (1) No Known Medication Allergies FAMILY HISTORY: SOCIAL HISTORY: PHYSICAL EXAM: VITALS: IljtduBkgkGAGzoawHOAbT7XJG3DahmOn(kg ) 06/15 09:43----183569--98/27 70.5 24 Hr Tmax: No Data Available [...] ROBERT BELTRAN MD on 06/15/2022 10:12 AM [facility] Emergency department Note 09-08-2020 Hali Adames RN - 09/08/2020 1:14 PM Delfin Sanders DO - 09/08/2020 12:54 PM EDHali Mesa RN - 09/08/2020 12:23 PM EDTMignon Alba RN - 09/08/2020 12:19 PM EDT Note Date & Type Note Facility 09-08-2020 Emergency departm ent Note Pt drinking water without difficulty Emergency Department Report [facility] EMERGENCY DEPARTMENT Service Date:.09/08/20 PCP: Nydia Krishnamurthy [...] Social Gatherings with Friends and Family: Attends [employer] Services: Active Member of Clubs or Organizations: [...] arrival: Comments: EMS documented in this encounter [facility] Evaluation note Note Date & Type Note Facility documented in this encounter [facility] Hospital course Narrative Note Date & Type Note Facility Hospital course Narrative No data available for this section [facility] Hospital Discharge instructions Attachments Note Date & Type Note Facility Hospital Discharge instructions The following attachments cannot be sent through Care Everywhere.Foreign Body in Throat or Esophagus (Greenlandic)documented in this encounter [facility] Summary Purpose Family History No Family History Records Found Advance Directives No Advanced Directives Records Found Additional Source Comments Reason for Visit (unrecogniz ed section and content) Patient Care team informatio n (unrecognized section and content) Care Team Personnel Name: NYDIA KRISHNAMURTHY MD Member Role: Primary Care Physician Address: Address: [facility] [place] [address]- Care Team Related Persons Name: ORLY CORDERO Address: Home [address] [address] (unrecognized sect ion and content) No Status [...] BE BASED ON THE PRIMARY CLINICAL RECORDS. [employer] provides no warranty or guarantee of the accuracy or completeness of information in this document.
== END | disposition home or self-care (01) ==
PROVIDERS: PCP Family Medicine Geriatric Medicine; Referring Provider Family Medicine Geriatric Medicine; Visit Provider Family Medicine Geriatric Medicine
DX: R68.83 Chills (without fever) (principal)
CPT/HCPCS: 87631

== ENCOUNTER → 2023-09-08 | Outpatient (CLI) | payer MEDICARE, SELFPAY ==
[2016-10-05 13:30] VITALS: BMI 26.1
[2023-09-08 10:56] LABS: Absolute Lymphocyte Count 1.19 X10^3/uL (0.83-4.51); Absolute Neutrophil Count 2.3 X10^3/uL (2.0-7.7); Basophil# 0.02 X10^3/uL; Basophil% 0.4 % (0-1); Eosinophil# 0.27 X10^3/uL; Eosinophils% 5.7 % (0-5); Hematocrit 39.7 % (40-54); Hemoglobin 12.4 g/dL (13.0-16.5); Lymphocyte # 1.19 X10^3/ul (0.83-4.51); Lymphocyte % 25.3 % (19-41); Mean Corp Hgb Conc 31.2 g/dL (32-36); Mean Corpuscular Volume 95.9 fL (80-94); Monocyte# 0.92 X10^3/uL; Monocyte% 19.5 % (0-10); NRBC Flagged by Analyzer 0 % (0-5); Neutrophil # 2.27 X10^3/uL (2.7-7.7); Neutrophil % 48.3 % (47-70); Platelet Count 261 K/mm3 (150-450); RBC Distribution Width CV 14.3 % (11.6-14.6); RBC Distribution Width SD 50.4 fl (35.1-43.9); Red Blood Count 4.14 M/mm3 (4.6-6.2); White Blood Count 4.7 K/mm3 (4.4-11.0)
[2023-09-08 11:25] LABS: Vitamin D,25 Hydroxy 35.6 ng/mL
[2023-09-08 12:23] LABS: ALB/GLOB Ratio 0.9 RATIO (0.9-2.4); AST(SGOT) 14 U/L (15-37); Alanine Aminotransfer ALT/SGPT 12 U/L (16-61); Albumin, Serum 3.3 g/dL (3.2-5.0); Alkaline Phosphatase 54 U/L (45-117); Anion Gap 7 (5-15); BUN 16 mg/dL (7-18); BUN/Creat Ratio 19.1 RATIO (10-20); Calcium,Total 8.6 mg/dL (8.5-10.1); Chloride 108 mmol/L (98-107); Creatinine, Serum 0.84 mg/dL (0.70-1.30); EST Glomerular Filtration Rate 93 mL/min (>60); Est Glom Filt Rate - Afr Amer 112 mL/min (>60); Globulin 3.6 g/dL (2.2-4.2); Glucose 109 mg/dL (74-106); Potassium 3.8 mmol/L (3.5-5.1); Protein, Total 6.9 g/dL (6.4-8.2); Sodium Level 139 mmol/L (136-145); Thyroid Stim Hormone (TSH) 1.29 uIU/mL (0.358-3.74)
== END | disposition home or self-care (01) ==
LOC: LAB 10:10
PROVIDERS: PCP Family Medicine Geriatric Medicine; Referring Provider Family Medicine Geriatric Medicine; Visit Provider Family Medicine Geriatric Medicine
DX: I10 Essential (primary) hypertension (principal); E55.9 Vitamin D deficiency, unspecified
CPT/HCPCS: 36415; 80053; 82306; 84443; 85025

== ENCOUNTER → 2023-09-27 | Outpatient (CLI) | payer MEDICARE, SELFPAY ==
[2016-10-05 13:30] VITALS: BMI 26.1
--- NOTE | 2023-09-27 12:06 | RAD_ITS ---
STUDY: X-RAY - ABDOMEN/PELVIS REASON FOR EXAM: Male, 83 years old. FECAL IMPACTION OF COLON TECHNIQUE: AP supine and upright views of the abdomen and pelvis. COMPARISON: None. FINDINGS: Normal visualized lung bases. There is an unremarkable bowel gas pattern. There is no demonstrated free abdominal air. The visualized liver, spleen and kidneys are grossly normal in size and morphology. Normal soft tissue structures. Mild dextroscoliosis lumbar spine with degenerative disc disease. RAD/[employer] Decub and/or Erect IMPRESSION: Normal x-ray examination of the abdomen and pelvis. Electronically Signed: Wally Cardona MD at 13:13 EDT ,
[2023-09-27 12:43] LABS: Absolute Lymphocyte Count 1.34 X10^3/uL (0.83-4.51); Absolute Neutrophil Count 2.1 X10^3/uL (2.0-7.7); Basophil# 0.03 X10^3/uL; Basophil% 0.6 % (0-1); Eosinophil# 0.25 X10^3/uL; Eosinophils% 5.3 % (0-5); Hematocrit 38.4 % (40-54); Hemoglobin 12.4 g/dL (13.0-16.5); Lymphocyte # 1.34 X10^3/ul (0.83-4.51); Lymphocyte % 28.3 % (19-41); Mean Corp Hgb Conc 32.3 g/dL (32-36); Mean Corpuscular Hgb 30.6 pg (27.0-32.0); Mean Corpuscular Volume 94.8 fL (80-94); Mean Platelet Vol. 8.8 fl (6.2-12.0); Monocyte# 0.98 X10^3/uL; Monocyte% 20.7 % (0-10); NRBC Flagged by Analyzer 0 % (0-5); Neutrophil # 2.09 X10^3/uL (2.7-7.7); Neutrophil % 44.3 % (47-70); Platelet Count 256 K/mm3 (150-450); RBC Distribution Width SD 49.1 fl (35.1-43.9); Red Blood Count 4.05 M/mm3 (4.6-6.2); White Blood Count 4.7 K/mm3 (4.4-11.0)
[2023-09-27 12:59] LABS: ALB/GLOB Ratio 0.9 RATIO (0.9-2.4); AST(SGOT) 16 U/L (15-37); Alanine Aminotransfer ALT/SGPT 9 U/L (16-61); Albumin, Serum 3.3 g/dL (3.2-5.0); Alkaline Phosphatase 53 U/L (45-117); Anion Gap 5 (5-15); BUN 13 mg/dL (7-18); BUN/Creat Ratio 16.9 RATIO (10-20); Calcium,Total 8.7 mg/dL (8.5-10.1); Chloride 106 mmol/L (98-107); Creatinine, Serum 0.77 mg/dL (0.70-1.30); EST Glomerular Filtration Rate 102 mL/min (>60); Est Glom Filt Rate - Afr Amer 124 mL/min (>60); Globulin 3.7 g/dL (2.2-4.2); Glucose 98 mg/dL (74-106); Sodium Level 138 mmol/L (136-145)
== END | disposition home or self-care (01) ==
LOC: POLAB3 11:54
PROVIDERS: PCP Family Medicine Geriatric Medicine; Visit Provider Family Medicine Geriatric Medicine
DX: I10 Essential (primary) hypertension (principal); K56.41 Fecal impaction
CPT/HCPCS: 36415; 74018; 74019; 80053; 85025

== ENCOUNTER 2023-10-31 08:52 | Emergency (ER) | payer MEDICARE, SELFPAY ==
[2016-10-05 13:30] VITALS: BMI 26.1
[2023-10-31] VITALS (7 sets, daily range): BP systolic 105–134; BP diastolic 55–78; PULSE 56–86; RESP 14–18; TEMP 36.2; O2SAT 94–98; BMI 26.4
--- NOTE | 2023-10-31 09:04 | ED.VIS.CHEST ---
HPI History of Present Illness Chief Complaint: Chest Pain Informant: patient Onset/Context/Timing Onset: Days (2-3) Activity at onset: gradual and exertion Timing: Intermittent Quality: Positive for Dull and Pressure Location: Left Chest Worsened By: Exertion Relieved By: Nothing Associated Symptoms: Positive for Dyspnea, Cough and Acid Reflux; Negative for Nausea, Vomiting, Diaphoresis, Fever, Lightheadedness or Palpitations Narrative Narrative: Patient presents with chest pain that has been intermittent over the past 2 to 3 days. Patient describes it as a dull pressure. Patient states he has pain in his back and left upper chest. Patient states it is worse with exertion. Patient states nothing makes it better. Patient admits to some shortness of breath and cough. Patient also admits to some lightheadedness with it. Patient also states he has been having some rectal bleeding recently and constipation. Patient admits to some epigastric and right upper quadrant pain that is worse after eating. Patient denies any fevers or chills. Patient denies any nausea or vomiting. CVD Risk Factors: Positive for Hypertension, Hypercholesterolemia and Family History 1' </=55; Negative for Diabetes or Smoking PE Risk Factors: Positive for Prior DVT or PE; Negative for Recent Travel/Surgery, Recent Immobilization or Cancer [facility] Medical History Anemia New onset a-fib Heartburn Bronchitis PUD (peptic ulcer disease) Deep vein thrombosis of left lower extremity (2012) Essential (primary) hypertension DDD (degenerative disc disease) Atherosclerosis of coronary artery of [place] heart without angina pectoris Non-ST elevation (NSTEMI) myocardial infarction (10/03/16) PND (post-nasal drip) Multiple allergies Cough Prostate enlargement Stomach ulcer GERD (gastroesophageal reflux disease) Glaucoma Skin cancer Unstable angina Hyperlipidemia Crohn disease Home Medications ?Medication ?Instructions ?Recorded ?Last Taken ?Type nitroglycerin 0.4 mg sublingual 0.4 mg sublingual Q5-15M PRN Chest 04/06/17 Unknown History tablet (Nitrostat) Pain balsalazide 750 mg capsule 2,250 mg PO BID stomach 07/11/19 02/20/22 22:00 History pantoprazole 40 mg tablet,delayed 40 mg PO DAILY stomach 01/26/20 02/20/22 09:00 History release acetaminophen 325 mg tablet 650 mg PO Q6H PRN Breakthrough 05/08/21 Unknown History (Tylenol) Pain, Mild dextromethorphan polistirex 30 10 ml PO Q12H PRN Cough 05/08/21 Unknown History mg/5 mL oral susp ext.release 12hr (Robitussin ER) guaifenesin 600 mg tablet, 600 mg PO Q12H PRN Cough 05/08/21 Unknown History extended release 12 hr (Mucinex) albuterol sulfate 90 mcg/actuation 2 puff inhalation Q4H PRN PRN 10/26/22 Unknown Rx aerosol inhaler (Ventolin HFA) Wheezing ##1 levocetirizine 5 mg tablet 5 mg PO QHS 01/18/23 Unknown History atorvastatin 20 mg tablet 10 mg PO QHS cholesterol 03/24/23 Unknown History digoxin 125 mcg (0.125 mg) tablet 125 mcg PO DAILY 06/04/23 Unknown History metoprolol tartrate 25 mg tablet 12.5 mg (1/2 x 25 mg) PO BID #30 07/13/23 Unknown Rx tabs apixaban 5 mg tablet (Eliquis) 2.5 mg PO BID blood thinner 10/28/23 Unknown History Allergy/AdvReac Type Severity Reaction Status Date / Time digoxin AdvReac Intermediate Dizziness, Verified 10/31/23 09:14 headache, fuzzy thoughts ragweed pollen AdvReac Intermediate Nasal Verified 10/31/23 09:14 congestion Family History Father Heart disease Mother CVA (cerebral vascular accident) Surgical History History of dental surgery (04/15/21) History of coronary artery stent placement (10/05/16) Previous back surgery H/O colonoscopy Social History household members: spouse Smoking Status: Former smoker second hand exposure: No alcohol intake: never substance use type: does not use ROS ROS ED Constitutional Constitutional ED: Denies chills or fever(s) Eyes Eyes: Denies blurry vision or change in vision ENT ENT ED: Denies rhinorrhea or sore throat Cardiovascular Cardiovascular: Reports chest pain; Denies palpitations Respiratory/Chest Respiratory/Chest: Reports cough and dyspnea Gastrointestinal Gastrointestinal: Denies nausea or vomiting Genitourinary Genitourinary ED: Denies dysuria or hematuria Musculoskeletal Musculoskeletal: Reports back pain; Denies neck pain Integumentary Denies abscess or rash Neurologic Neurologic: Denies headache(s) or weakness Allergic/Immunologic Allergic/Immunologic ED: Denies mouth swelling or urticaria EXAM Physical Exam Const Vital Signs: 10/31/23 08:54 10/31/23 09:04 10/31/23 09:52 Temperature 97.2 F L Temperature Source Temporal Pulse Rate 76 86 Respiratory Rate 16 16 Respiratory Effort Short of Breath Blood Pressure 128/61 H 105/66 Blood Pressure Mean 83 79 Pulse Ox 95 98 Oxygen Delivery Method Room Air Room Air 10/31/23 10:00 10/31/23 11:06 10/31/23 12:00 Temperature Temperature Source Pulse Rate 64 63 56 L Respiratory Rate 18 16 14 Respiratory Effort Blood Pressure 107/78 114/55 L 134/62 H Blood Pressure Mean 87 74 86 Pulse Ox 98 96 95 Oxygen Delivery Method Room Air Room Air Room Air Positive well nourished and well developed General Appearance ED: well developed and NAD HEENT Reports moist mucous membranes normocephalic and atraumatic Neck supple and no JVD Chest Wall palpation of chest normal Resp normal respiratory effort and clear to auscultation bilaterally Cardio regular rate and regular rhythm GI soft to palpation, non-tender and non-distended Neuro oriented x3, CN's II-XII intact bilaterally and no sensory deficits noted Sensorium / Orientation: awake Motor Exam: strength 5/5 throughout Psych mental status grossly normal Heart Score History: Slightly/Non-Suspicious ECG: Normal Age: >/= 65 years Risk Factors: >/= 3 Risk Factors or History of CAD Troponin: </= Normal Limit Score: 4 MDM MDM MDM Narrative Medical decision making narrative: Differential diagnosis includes cardiac dysrhythmia, cardiac ischemia, pneumonia, pneumothorax, gastroesophageal reflux disease, peptic ulcer disease, cholecystitis, cholelithiasis, coagulopathy, anemia, pancreatitis, and electrolyte abnormality. EKG will be obtained to assess for cardiac dysrhythmia and cardiac ischemia. CBC will be obtained to assess for leukocytosis and anemia. Comprehensive metabolic profile will be obtained to assess for hepatic function, renal function, and electrolyte abnormality. Lipase will be obtained to assess for pancreatitis. PT with INR and PTT will be obtained to assess for coagulopathy. High-sensitivity troponin will be obtained to assess for cardiac ischemia. 2-hour repeat high-sensitivity troponin will be obtained to assess for ongoing cardiac ischemia. Chest x-ray will be obtained to assess for pneumonia. Lab Data Attestation: I reviewed the patient's lab results. Lab results narrative: CBC was reviewed. Hemoglobin was 12.0 hematocrit was 36.8. This is stable compared to previous results. PT was INR and PTT were reviewed and were within normal limits. Comprehensive metabolic profile was reviewed. Total bilirubin was 1.1. This is consistent with previous results. AST and ALT were within normal limits. Alkaline phosphatase was normal. Initial high-sensitivity troponin was reviewed and was normal at 4. Lipase was reviewed and was normal at 36. 2-hour repeat high-sensitivity troponin was reviewed and was normal at 4. Labs: Laboratory Results - last 24 hr 10/31/23 10/31/23 09:27 11:31 WBC 4.9 RBC 3.94 L Hgb 12.0 L Hct 36.8 L MCV 93.4 MCH 30.5 MCHC 32.6 RDW Std Deviation 49.9 H RDW Coeff of Gaby 14.3 Plt Count 241 MPV 8.9 Immature Gran % (Auto) 0.400 Neut % (Auto) 47.1 Lymph % (Auto) 23.5 Fergus % (Auto) 21.7 H Eos % (Auto) 6.7 H Baso % (Auto) 0.6 Absolute Neuts (auto) 2.3 Absolute Lymphs (auto) 1.16 Nucleated RBC % 0 PT 14.7 INR 1.2 APTT 30.2 Sodium 141 Potassium 3.9 Chloride 110 H Carbon Dioxide 26.0 Anion Gap 5 BUN 14 Creatinine 0.99 Estim Creat Clear Calc 45.52 Est GFR (MDRD) Af Amer 93 Est GFR (MDRD) Non-Af 77 BUN/Creatinine Ratio 14.2 Glucose 150 H Calcium 8.3 L Total Bilirubin 1.10 H AST 13 L ALT 9 L Alkaline Phosphatase 54 Troponin I High Sens 4 4 Total Protein 6.8 Albumin 3.1 L Globulin 3.7 Albumin/Globulin Ratio 0.8 L Lipase 36 Radiography Diagnostic Testing: Clinical Impression(s) from Imaging Studies Chest X-Ray 10/31/23 09:22 IMPRESSION: Hyperexpanded lungs with chronic interstitial changes, no superimposed acute pulmonary process Electronically Signed: Blake Lambert MD at 9:38 EDT , PA and lateral chest x-ray was obtained. There are 2 views. On my independent interpretation, lung odom are hyperexpanded with chronic changes. There is normal cardiac silhouette. Bony thorax is normal. There is no acute process noted. Radiologist also interpreted the x-ray and agrees. EKG Initial EKG: Attestation: I personally reviewed and interpreted this EKG as follows: Interpretation: Sinus Rhythm (70) and No Acute Injury Pattern Comments: EKG was obtained. On my independent interpretation, it showed a normal sinus rhythm with a rate of 70. PA interval, QRS interval, and QTc intervals were all normal. [place] was normal. There are no acute ST or T wave changes. Prior EKG tracings: available for review Prior: Unchanged (03/16/2023) Treatment and Re-Evaluation :: Patient was given aspirin here. Patient's chest pain had resolved prior to any administration of nitroglycerin. Patient was advised of his findings. Patient has a HEART score of 4. With 2 normal troponins, I feel the patient can be discharged home. Patient wants to go home. Patient was instructed to follow-up with his primary care physician in 5 to 7 days. Patient was instructed to return if worse in any way. Patient understood and was agreeable with the plan. All questions were answered. Discharge Plan Triage Chief Complaint: Chest Pain Other Complaint: GI Bleed ED Provider: Eloy Lane Dx/Rx/DC Orders Clinical Impression: Chest pain, History of DVT (deep vein thrombosis) Instructions: ED Chest Pain, Uncertain Cause Prescriptions: No Action nitroglycerin [Nitrostat] 0.4 mg tablet, sublingual 0.4 mg SUBLINGUAL Q5-15M PRN (Reason: Chest Pain) Patient Comments: pt. states he has never had to take it atorvastatin 20 mg tablet 10 mg PO QHS pantoprazole 40 mg tablet,delayed release (DR/EC) 40 mg PO DAILY dextromethorphan polistirex [Robitussin ER] 30 mg/5 mL suspension,extended rel 12 hr 10 ml PO Q12H PRN (Reason: Cough) acetaminophen [Tylenol] 325 mg tablet 650 mg PO Q6H PRN (Reason: Breakthrough Pain, Mild) guaifenesin [Mucinex] 600 mg tablet extended release 12hr 600 mg PO Q12H PRN (Reason: Cough) digoxin 125 mcg (0.125 mg) tablet 125 mcg PO DAILY balsalazide 750 mg capsule 2,250 mg PO BID Rx Instructions: 750 mg PO 6 capsules per day; albuterol sulfate [Ventolin HFA] 90 mcg/actuation HFA aerosol inhaler 2 puff inhalation Q4H PRN PRN (Reason: Wheezing) Qty: 1 0RF levocetirizine 5 mg tablet 5 mg PO QHS Patient Comments: TAKE 1 TABLET BY MOUTH EVERYDAY AT BEDTIME metoprolol tartrate 25 mg tablet 12.5 mg PO BID Qty: 30 11RF Rx Instructions: Take 12.5mg (1/2 tab) twice daily Eliquis 5 mg tablet 2.5 mg PO BID Primary Care Provider: Marcelo Mccullough Chi Referrals: Marcelo Mccullough Chi, MD [Primary Care Provider] - 3-5 Days Print Language: Iranian Disposition Disposition: Home, Self Care
--- NOTE | 2023-10-31 09:22 | EKG12_ITS ---
Test Reason : CP Blood Pressure : / mmHG Vent. Rate : 070 BPM Atrial Rate : 070 BPM P-R Int : 150 ms QRS Dur : 088 ms QT Int : 408 ms P-R-T Axes : 084 007 069 degrees QTc Int : 440 ms Normal sinus rhythm Normal ECG Confirmed by VICENTE LOMBARDI MD ([id number]), development editor ARNOLD AHUMDAA ([id number]) on 11/01/2023 9:43:56 AM Referred By: RAOUL Confirmed By:VICENTE LOMBARDI MD
--- NOTE | 2023-10-31 09:22 | RAD_ITS ---
STUDY: X-RAY CHEST REASON FOR EXAM: Male, 83 years old. Atypical chest pain TECHNIQUE: PA and lateral views of the chest. COMPARISON: None. FINDINGS: Lungs are hyperexpanded with chronic interstitial changes, no superimposed acute pulmonary process. There is no demonstrated pleural abnormality. Normal size heart. Normal mediastinum and jenny. Normal visualized pulmonary arteries. There is atherosclerotic calcification of the aortic arch with tortuosity. There are diffuse degenerative changes of the visualized thoracic spine. Normal visualized ribs, clavicles, and shoulders. There is no demonstrated abnormality of the visualized soft tissue structures of the upper abdomen. RAD/Chest PA and Lateral IMPRESSION: Hyperexpanded lungs with chronic interstitial changes, no superimposed acute pulmonary process Electronically Signed: Blake Lambret MD at 9:38 EDT ,
[2023-10-31 09:39] LABS: Absolute Lymphocyte Count 1.16 X10^3/uL (0.83-4.51); Absolute Neutrophil Count 2.3 X10^3/uL (2.0-7.7); Basophil# 0.03 X10^3/uL; Basophil% 0.6 % (0-1); Eosinophil# 0.33 X10^3/uL; Eosinophils% 6.7 % (0-5); Hematocrit 36.8 % (40-54); Lymphocyte # 1.16 X10^3/ul (0.83-4.51); Lymphocyte % 23.5 % (19-41); Mean Corp Hgb Conc 32.6 g/dL (32-36); Mean Corpuscular Hgb 30.5 pg (27.0-32.0); Mean Corpuscular Volume 93.4 fL (80-94); Mean Platelet Vol. 8.9 fl (6.2-12.0); Monocyte# 1.07 X10^3/uL; Monocyte% 21.7 % (0-10); NRBC Flagged by Analyzer 0 % (0-5); Neutrophil # 2.33 X10^3/uL (2.7-7.7); Neutrophil % 47.1 % (47-70); Platelet Count 241 K/mm3 (150-450); RBC Distribution Width CV 14.3 % (11.6-14.6); RBC Distribution Width SD 49.9 fl (35.1-43.9); Red Blood Count 3.94 M/mm3 (4.6-6.2); White Blood Count 4.9 K/mm3 (4.4-11.0)
[2023-10-31 09:44] LABS: International Normalized Ratio 1.2; Prothrombin Time (Protime)PT. 14.7 SECONDS (11.7-14.9)
[2023-10-31] MEDS: Aspirin 81 MG TAB.CHEW 324 MG PO (09:44)
[2023-10-31 09:45] LABS: Partial Thromboplast Time 30.2 Seconds (24.1-36.2)
[2023-10-31 09:55] LABS: ALB/GLOB Ratio 0.8 RATIO (0.9-2.4); AST(SGOT) 13 U/L (15-37); Alanine Aminotransfer ALT/SGPT 9 U/L (16-61); Albumin, Serum 3.1 g/dL (3.2-5.0); Alkaline Phosphatase 54 U/L (45-117); Anion Gap 5 (5-15); BUN 14 mg/dL (7-18); BUN/Creat Ratio 14.2 RATIO (10-20); Calcium,Total 8.3 mg/dL (8.5-10.1); Chloride 110 mmol/L (98-107); Creatinine, Serum 0.99 mg/dL (0.70-1.30); EST Glomerular Filtration Rate 77 mL/min (>60); Est Glom Filt Rate - Afr Amer 93 mL/min (>60); Estimated Creatinine Clearance 45.52 ml/min; Globulin 3.7 g/dL (2.2-4.2); Glucose 150 mg/dL (74-106); Lipase 36 U/L (13-75); Potassium 3.9 mmol/L (3.5-5.1); Protein, Total 6.8 g/dL (6.4-8.2); Sodium Level 141 mmol/L (136-145); Troponin-I HS (w/2H Reflex) 4 pg/mL (3.0-78.0)
[2023-10-31 11:30] LABS: Reflex Troponin-HS? (from REC) Y
[2023-10-31 11:53] LABS: Troponin-I HS 4 pg/mL (3.0-78.0)
== END 2023-10-31 13:13 | disposition home or self-care (01) ==
PROVIDERS: Emergency Provider Emergency Medicine; PCP Family Medicine Geriatric Medicine; Visit Provider Emergency Medicine
DX: R07.9 Chest pain, unspecified (principal); I48.91 Unspecified atrial fibrillation; R06.02 Shortness of breath; R10.11 Right upper quadrant pain; I25.10 Atherosclerotic heart disease of native coronary artery without angina pectoris; Z87.891 Personal history of nicotine dependence; Z86.718 Personal history of other venous thrombosis and embolism; I10 Essential (primary) hypertension; K21.9 Gastro-esophageal reflux disease without esophagitis; R42 Dizziness and giddiness; E78.00 Pure hypercholesterolemia, unspecified; Z79.01 Long term (current) use of anticoagulants; M54.9 Dorsalgia, unspecified; R05.9 Cough, unspecified
CPT/HCPCS: 71046; 80053; 83690; 84484; 85025; 85610; 85730; 93005; 99284; A4216

== ENCOUNTER → 2023-11-17 | Outpatient (CLI) | payer MEDICARE, SELFPAY ==
[2016-10-05 13:30] VITALS: BMI 26.1
== END | disposition home or self-care (01) ==
LOC: POLAB3 14:19
PROVIDERS: PCP Family Medicine Geriatric Medicine; Visit Provider Family Medicine Geriatric Medicine
DX: R68.83 Chills (without fever) (principal)
CPT/HCPCS: 87631

== ENCOUNTER → 2023-12-24 | Outpatient (CLI) | payer MEDICARE, SELFPAY ==
[2016-10-05 13:30] VITALS: BMI 26.1
[2023-12-24 17:51] LABS: Hematocrit 38.8 % (40-54); Hemoglobin 12.3 g/dL (13.0-16.5); Mean Corp Hgb Conc 31.7 g/dL (32-36); Mean Corpuscular Hgb 30.5 pg (27.0-32.0); Mean Corpuscular Volume 96.3 fL (80-94); Mean Platelet Vol. 9.4 fl (6.2-12.0); Platelet Count 242 K/mm3 (150-450); RBC Distribution Width SD 53.2 fl (35.1-43.9); Red Blood Count 4.03 M/mm3 (4.6-6.2); White Blood Count 4.6 K/mm3 (4.4-11.0)
[2023-12-24 17:52] LABS: CRP 3.44 mg/L (0.0-3.0); Iron 35 ug/dL (65-175)
[2023-12-24 18:03] LABS: Erythrocyte Sedimentation Rate 18 mm/hr (0-20)
== END | disposition home or self-care (01) ==
LOC: MTLAB 15:06
PROVIDERS: PCP Family Medicine Geriatric Medicine; Referring Provider Internal Medicine Gastroenterology; Visit Provider Internal Medicine Gastroenterology
DX: K52.9 Noninfective gastroenteritis and colitis, unspecified (principal); D64.9 Anemia, unspecified
CPT/HCPCS: 36415; 83540; 85027; 85652; 86140

== ENCOUNTER 2024-02-28 02:18 | Observation (INO) | payer MEDICARE, SELFPAY ==
[2016-10-05 13:30] VITALS: BMI 26.1
[2024-02-28] VITALS (59 sets, daily range): BP systolic 83–143; BP diastolic 50–120; PULSE 49–144; RESP 14–21; TEMP 36.5–37.1; O2SAT 12–98; BMI 27.6; BMI 35.3
--- NOTE | 2024-02-28 02:30 | RAD_ITS ---
EXAM: XR CHEST, 1 VIEW CLINICAL INDICATION: dyspnea TECHNIQUE: Frontal view of the chest. COMPARISON: Two-view chest 10/31/2023 FINDINGS: LUNGS AND PLEURAL SPACES: Bibasilar atelectasis. No pneumothorax. No effusion. HEART: Unremarkable. Cardiac silhouette not enlarged. MEDIASTINUM: Central airways and mediastinal contour are unremarkable. BONES/JOINTS: Unremarkable. No acute fracture. SOFT TISSUES: Unremarkable. RAD/Chest 1 View (Portable) IMPRESSION: Bibasilar atelectasis. Otherwise unremarkable exam. Electronically Signed: Aki Badillo MD at 3:04 EST ,
--- NOTE | 2024-02-28 02:30 | EKG12_ITS ---
Test Reason : AF Blood Pressure : */* mmHG Vent. Rate : 70 BPM Atrial Rate : 70 BPM P-R Int : 174 ms QRS Dur : 84 ms QT Int : 418 ms P-R-T Axes : 47 16 71 degrees QTcB Int : 451 ms Normal sinus rhythm Normal ECG When compared with ECG of 28-Feb-2024 02:21, MANUAL COMPARISON REQUIRED DATA IS UNCONFIRMED Confirmed by HARJIT WOOD, VICENTE ([id number]), publishing editor ARNOLD AHUMADA ([id number]) on 02/29/2024 8:21:57 AM Referred By: HARJIT Confirmed By: VICENTE LOMBARDI MD
[2024-02-28 02:37] LABS: Absolute Lymphocyte Count 2.36 X10^3/uL (0.83-4.51); Absolute Neutrophil Count 2.6 X10^3/uL (2.0-7.7); Basophil# 0.04 X10^3/uL; Basophil% 0.6 % (0-1); Eosinophil# 0.37 X10^3/uL; Eosinophils% 5.4 % (0-5); Hematocrit 39.4 % (40-54); Hemoglobin 12.9 g/dL (13.0-16.5); Lymphocyte # 2.36 X10^3/ul (0.83-4.51); Lymphocyte % 34.4 % (19-41); Mean Corp Hgb Conc 32.7 g/dL (32-36); Mean Corpuscular Hgb 31.5 pg (27.0-32.0); Mean Corpuscular Volume 96.1 fL (80-94); Monocyte# 1.38 X10^3/uL; Monocyte% 20.1 % (0-10); NRBC Flagged by Analyzer 0 % (0-5); Neutrophil # 2.61 X10^3/uL (2.7-7.7); Platelet Count 270 K/mm3 (150-450); RBC Distribution Width CV 14.7 % (11.6-14.6); RBC Distribution Width SD 51.8 fl (35.1-43.9); White Blood Count 6.9 K/mm3 (4.4-11.0)
[2024-02-28] MEDS: 0.9% Normal Saline (500mL Bag) 500 ML 999 ML IV (02:39)
[2024-02-28] MEDS: dilTIAZem 25 MG/5 ML Vial 15 MG IV BOLUS (02:39)
[2024-02-28 02:56] LABS: International Normalized Ratio 1.1; Prothrombin Time (Protime)PT. 13.7 SECONDS (11.7-14.9)
[2024-02-28 02:57] LABS: Partial Thromboplast Time 29.4 Seconds (24.1-36.2)
[2024-02-28 03:01] LABS: Anion Gap 7 (5-15); BUN 15 mg/dL (7-18); BUN/Creat Ratio 18.5 RATIO (10-20); Calcium,Total 9.1 mg/dL (8.5-10.1); Chloride 105 mmol/L (98-107); Creatinine, Serum 0.81 mg/dL (0.70-1.30); EST Glomerular Filtration Rate 96 mL/min (>60); Est Glom Filt Rate - Afr Amer 116 mL/min (>60); Glucose 131 mg/dL (74-106); Potassium 3.7 mmol/L (3.5-5.1); Sodium Level 139 mmol/L (136-145); Thyroid Stim Hormone (TSH) 0.624 uIU/mL (0.358-3.740)
[2024-02-28] MEDS: dilTIAZem 25 MG/5 ML Vial 20 MG IV BOLUS (03:20)
[2024-02-28] MEDS: Metoprolol Tartrate 5 MG/5 ML Vial IV ×3 (04:22→04:41)
[2024-02-28] MEDS: 0.9% Normal Saline (1000mL) 1,000 ML 999 ML IV (05:14)
[2024-02-28] MEDS: Propofol 200 MG/20 ML Vial IV BOLUS (05:17)
[2024-02-28] MEDS: Midazolam 5 MG/ML Syringe IV (05:23)
--- NOTE | 2024-02-28 05:56 | EX.ED.DYSGE1 ---
HPI History of Present Illness Chief Complaint: Chest Pain Informant: patient, family and EMS Narrative Narrative: Patient is an 83-year-old male with past medical history of hypertension coronary artery disease hyperlipidemia and paroxysmal atrial fibrillation. Patient reports he has been in A-fib 3 or 4 times in his life and has required cardioversion and admission. Family reports his last admission was roughly a year and a half ago secondary to atrial fibrillation that would not respond to medical or electrical cardioversion. At that time the nidus for his breakthrough A-fib was most likely Trelegy. The patient has been sick recently with nasal congestion and cough and went to an urgent care the other day. He was placed on an albuterol inhaler secondary to this. According to patient and family he used the albuterol inhaler Wednesday afternoon/evening and then developed his sensation of heart racing and chest discomfort. Secondary to concern this could be cardiac in nature EMS was called and he was brought in for evaluation [facility] Medical History A-fib Paroxysmal atrial fibrillation Anemia New onset a-fib Heartburn Bronchitis PUD (peptic ulcer disease) Deep vein thrombosis of left lower extremity (2012) Essential (primary) hypertension DDD (degenerative disc disease) Atherosclerosis of coronary artery of [place] heart without angina pectoris Non-ST elevation (NSTEMI) myocardial infarction (10/03/16) PND (post-nasal drip) Multiple allergies Cough Prostate enlargement Stomach ulcer GERD (gastroesophageal reflux disease) Glaucoma Skin cancer Unstable angina Hyperlipidemia Crohn disease Home Medications ?Medication ?Instructions ?Recorded ?Last Taken ?Type nitroglycerin 0.4 mg sublingual 0.4 mg sublingual Q5-15M PRN Chest 04/06/17 Unknown History tablet (Nitrostat) Pain balsalazide 750 mg capsule 2,250 mg PO BID stomach 07/11/19 02/20/22 22:00 History pantoprazole 40 mg tablet,delayed 40 mg PO DAILY stomach 01/26/20 02/20/22 09:00 History release acetaminophen 325 mg tablet 650 mg PO Q6H PRN Breakthrough 05/08/21 Unknown History (Tylenol) Pain, Mild albuterol sulfate 90 mcg/actuation 2 puff inhalation Q4H PRN PRN 10/26/22 Unknown Rx aerosol inhaler (Ventolin HFA) Wheezing ##1 levocetirizine 5 mg tablet 5 mg PO QHS 01/18/23 Unknown History atorvastatin 20 mg tablet 10 mg PO QHS cholesterol 03/24/23 Unknown History metoprolol tartrate 25 mg tablet 12.5 mg (1/2 x 25 mg) PO BID #30 07/13/23 Unknown Rx tabs apixaban 5 mg tablet (Eliquis) 2.5 mg PO BID blood thinner 10/28/23 Unknown History doxycycline hyclate 100 mg capsule 100 mg PO BID 7 days #14 caps 02/27/24 Unknown Rx Allergy/AdvReac Type Severity Reaction Status Date / Time digoxin AdvReac Intermediate Dizziness, Verified 02/28/24 02:28 headache, fuzzy thoughts ragweed pollen AdvReac Intermediate Nasal Verified 02/28/24 02:28 congestion Family History Father Heart disease Mother CVA (cerebral vascular accident) Surgical History History of dental surgery (04/15/21) History of coronary artery stent placement (10/05/16) Previous back surgery H/O colonoscopy Social History household members: spouse Smoking Status: Former smoker second hand exposure: No alcohol intake: never substance use type: does not use ROS ROS ED Constitutional Constitutional ED: Denies chills or fever(s) Eyes Eyes: Denies blurry vision, change in vision or diplopia ENT ENT ED: Denies sore throat Cardiovascular Cardiovascular: Reports chest pain, palpitations and racing heartbeat Respiratory/Chest Respiratory/Chest: Reports cough and dyspnea Gastrointestinal Gastrointestinal: Denies abdominal pain, diarrhea, nausea or vomiting Genitourinary Genitourinary ED: Denies dysuria Musculoskeletal Musculoskeletal: Denies myalgias Integumentary Denies rash Neurologic Neurologic: Denies headache(s) Hematologic/Lymphatic Hematologic/Lymphatic: Denies easy bleeding or easy bruising Allergic/Immunologic Allergic/Immunologic ED: Denies mouth swelling or tongue swelling EXAM Physical Exam Const Vital Signs: 02/28/24 02:19 02/28/24 02:24 02/28/24 02:31 Temperature 98.8 F Temperature Source Temporal Pulse Rate 144 H 139 H Pulse Rate [1 (Initial Baseline)] Pulse Rate [2] Pulse Rate [3] Pulse Rate [4] Pulse Rate [6] Respiratory Rate 18 Respiratory Rate [1 (Initial Baseline)] Respiratory Rate [3] Respiratory Rate [4] Respiratory Rate [5] Respiratory Rate [6] Respiratory Effort Short of Breath Blood Pressure 143/120 H 121/81 H Blood Pressure [1 (Initial Baseline)] Blood Pressure [3] Blood Pressure [6] Blood Pressure Mean 127 94 Pulse Ox 93 Oxygen Delivery Method Room Air Oxygen Delivery Method [1 (Initial Baseline)] Oxygen Delivery Method [2] Oxygen Delivery Method [3] Oxygen Delivery Method [4] Oxygen Delivery Method [6] Oxygen Flow Rate (L/min) Oxygen Flow Rate (L/min) [1 (Initial Baseline)] Oxygen Flow Rate (L/min) [2] Oxygen Flow Rate (L/min) [3] Oxygen Flow Rate (L/min) [4] Oxygen Flow Rate (L/min) [5] Oxygen Flow Rate (L/min) [6] EtCo2 (Normal 35-45 , high quality CPR 10-20 & ROSC>/=40mmHg EtCo2 (Normal 35-45 , high quality CPR 10-20 & ROSC>/=40mmHg [1 (Initial Baseline)] EtCo2 (Normal 35-45 , high quality CPR 10-20 & ROSC>/=40mmHg [2] EtCo2 (Normal 35-45 , high quality CPR 10-20 & ROSC>/=40mmHg [3] EtCo2 (Normal 35-45 , high quality CPR 10-20 & ROSC>/=40mmHg [4] EtCo2 (Normal 35-45 , high quality CPR 10-20 & ROSC>/=40mmHg [5] EtCo2 (Normal 35-45 , high quality CPR 10-20 & ROSC>/=40mmHg [6] 02/28/24 03:18 02/28/24 04:00 02/28/24 04:25 Temperature Temperature Source Pulse Rate 74 108 H 109 H Pulse Rate [1 (Initial Baseline)] Pulse Rate [2] Pulse Rate [3] Pulse Rate [4] Pulse Rate [6] Respiratory Rate 15 21 H 16 Respiratory Rate [1 (Initial Baseline)] Respiratory Rate [3] Respiratory Rate [4] Respiratory Rate [5] Respiratory Rate [6] Respiratory Effort Blood Pressure 113/95 H 118/82 H 109/74 Blood Pressure [1 (Initial Baseline)] Blood Pressure [3] Blood Pressure [6] Blood Pressure Mean 101 94 85 Pulse Ox 93 92 95 Oxygen Delivery Method Room Air Nasal Cannula Nasal Cannula Oxygen Delivery Method [1 (Initial Baseline)] Oxygen Delivery Method [2] Oxygen Delivery Method [3] Oxygen Delivery Method [4] Oxygen Delivery Method [6] Oxygen Flow Rate (L/min) 2 2 Oxygen Flow Rate (L/min) [1 (Initial Baseline)] Oxygen Flow Rate (L/min) [2] Oxygen Flow Rate (L/min) [3] Oxygen Flow Rate (L/min) [4] Oxygen Flow Rate (L/min) [5] Oxygen Flow Rate (L/min) [6] EtCo2 (Normal 35-45 , high quality CPR 10-20 & ROSC>/=40mmHg EtCo2 (Normal 35-45 , high quality CPR 10-20 & ROSC>/=40mmHg [1 (Initial Baseline)] EtCo2 (Normal 35-45 , high quality CPR 10-20 & ROSC>/=40mmHg [2] EtCo2 (Normal 35-45 , high quality CPR 10-20 & ROSC>/=40mmHg [3] EtCo2 (Normal 35-45 , high quality CPR 10-20 & ROSC>/=40mmHg [4] EtCo2 (Normal 35-45 , high quality CPR 10-20 & ROSC>/=40mmHg [5] EtCo2 (Normal 35-45 , high quality CPR 10-20 & ROSC>/=40mmHg [6] 02/28/24 04:31 02/28/24 04:41 02/28/24 05:17 Temperature Temperature Source Pulse Rate 98 105 H Pulse Rate [1 (Initial Baseline)] 125 H Pulse Rate [2] 123 H Pulse Rate [3] 92 Pulse Rate [4] 106 H Pulse Rate [6] 96 Respiratory Rate 15 16 Respiratory Rate [1 (Initial Baseline)] 15 Respiratory Rate [3] 14 Respiratory Rate [4] 17 Respiratory Rate [5] 18 Respiratory Rate [6] 15 Respiratory Effort Blood Pressure 110/63 118/85 H Blood Pressure [1 (Initial Baseline)] 141/100 H Blood Pressure [3] 118/70 Blood Pressure [6] 100/65 Blood Pressure Mean 78 96 Pulse Ox 95 96 Oxygen Delivery Method Nasal Cannula Room Air Oxygen Delivery Method [1 (Initial Baseline)] Nasal Cannula Oxygen Delivery Method [2] Nasal Cannula Oxygen Delivery Method [3] Nasal Cannula Oxygen Delivery Method [4] Nasal Cannula Oxygen Delivery Method [6] Nasal Cannula Oxygen Flow Rate (L/min) 2 2 Oxygen Flow Rate (L/min) [1 (Initial Baseline)] 2 Oxygen Flow Rate (L/min) [2] 2 Oxygen Flow Rate (L/min) [3] 2 Oxygen Flow Rate (L/min) [4] 2 Oxygen Flow Rate (L/min) [5] 4 Oxygen Flow Rate (L/min) [6] 4 EtCo2 (Normal 35-45 , high quality CPR 10-20 & ROSC>/=40mmHg EtCo2 (Normal 35-45 , high quality CPR 10-20 & ROSC>/=40mmHg [1 (Initial Baseline)] 26 EtCo2 (Normal 35-45 , high quality CPR 10-20 & ROSC>/=40mmHg [2] 32 EtCo2 (Normal 35-45 , high quality CPR 10-20 & ROSC>/=40mmHg [3] 28 EtCo2 (Normal 35-45 , high quality CPR 10-20 & ROSC>/=40mmHg [4] 28 EtCo2 (Normal 35-45 , high quality CPR 10-20 & ROSC>/=40mmHg [5] 27 EtCo2 (Normal 35-45 , high quality CPR 10-20 & ROSC>/=40mmHg [6] 27 02/28/24 05:27 02/28/24 05:32 Temperature Temperature Source Pulse Rate Pulse Rate [1 (Initial Baseline)] Pulse Rate [2] Pulse Rate [3] Pulse Rate [4] Pulse Rate [6] Respiratory Rate Respiratory Rate [1 (Initial Baseline)] Respiratory Rate [3] Respiratory Rate [4] Respiratory Rate [5] Respiratory Rate [6] Respiratory Effort Blood Pressure Blood Pressure [1 (Initial Baseline)] Blood Pressure [3] Blood Pressure [6] Blood Pressure Mean Pulse Ox Oxygen Delivery Method Nasal Cannula Nasal Cannula Oxygen Delivery Method [1 (Initial Baseline)] Oxygen Delivery Method [2] Oxygen Delivery Method [3] Oxygen Delivery Method [4] Oxygen Delivery Method [6] Oxygen Flow Rate (L/min) 4 4 Oxygen Flow Rate (L/min) [1 (Initial Baseline)] Oxygen Flow Rate (L/min) [2] Oxygen Flow Rate (L/min) [3] Oxygen Flow Rate (L/min) [4] Oxygen Flow Rate (L/min) [5] Oxygen Flow Rate (L/min) [6] EtCo2 (Normal 35-45 , high quality CPR 10-20 & ROSC>/=40mmHg 22 24 EtCo2 (Normal 35-45 , high quality CPR 10-20 & ROSC>/=40mmHg [1 (Initial Baseline)] EtCo2 (Normal 35-45 , high quality CPR 10-20 & ROSC>/=40mmHg [2] EtCo2 (Normal 35-45 , high quality CPR 10-20 & ROSC>/=40mmHg [3] EtCo2 (Normal 35-45 , high quality CPR 10-20 & ROSC>/=40mmHg [4] EtCo2 (Normal 35-45 , high quality CPR 10-20 & ROSC>/=40mmHg [5] EtCo2 (Normal 35-45 , high quality CPR 10-20 & ROSC>/=40mmHg [6] Positive well nourished and well developed General Appearance ED: well developed HEENT HEENT Narrative: No tongue or lip swelling no oral lesions no airway edema or compromise There is cobblestoning the posterior pharynx consistent with sinus drainage No secondary findings to suggest infection Eyes PERRL and EOMs intact bilaterally General Eye ED: Negative for scleral icterus Neck supple and no JVD Chest Wall palpation of chest normal Resp normal respiratory effort Resp Narrative: Breath sounds are slight diminished throughout with faint expiratory wheeze in the bilateral bases but no signs of respiratory distress Cardio Rate: tachycardic and other Other Details: Irregularly irregular rhythm with tachycardic rate consistent with atrial fibrillation with rapid ventricular response GI normal to inspection, nondistended, normoactive bowel sounds, non-tender, non-distended and no masses GI Narrative: No voluntary guarding or rigidity or pulsatile mass Auscultation: normoactive bowel sounds Palpation: soft Extremity Extremity Narrative: +1 pitting edema to the bilateral lower extremities that is equal and symmetric Negative Homans' sign bilaterally Neuro oriented x3, CN's II-XII intact bilaterally and no sensory deficits noted Sensorium / Orientation: alert Motor Exam: strength 5/5 throughout Psych mental status grossly normal Skin no rashes or lesions noted General Skin Exam: Negative for jaundice MDM MDM MDM Narrative Medical decision making narrative: Patient arrived to the ER awake and alert without respiratory distress but was found to be in A-fib with RVR going approximately 150 bpm. This is most likely the cause of his shortness of breath and chest discomfort. In order to ensure that he is not in atrial fibrillation secondary to acute blood loss anemia acute kidney injury or electrolyte abnormality or thyroid disorder basic blood work was obtained. Labs revealed no clinically significant finding. The patient was given a bolus of 15 mg and then 20 mg of Cardizem. Each of which reduced his heart rate but did not cause spontaneous cardioversion. The patient was then given 3 doses of 5 mg Lopressor which also reduced his heart rate but did not cause spontaneous cardioversion. As the patient has a known history of paroxysmal A-fib but is normally in sinus rhythm and believes his symptoms/A-fib only began a few hours ago concern for PE and DVT is low and it was felt that he would benefit from synchronized cardioversion. This was performed as documented below. Despite 3 attempts of synchronized cardioversion at 360 J there was no spontaneous return to normal sinus rhythm. The case was then discussed with inside sales consultant Dr. Smith. He recommends patient be placed on a Cardizem drip and his Eliquis be restarted and he be admitted to the hospital for further monitoring regarding his persistent A-fib with RVR. The case was then discussed with the hospitalist who agrees to accept the patient for further care. Patient and family were notified of the need for admission as he would not spontaneously cardiovert and they are agreeable with this plan Patient underwent synchronized cardioversion after conscious sedation. The patient was given a total of 30 mg of propofol and 2.5 mg of versed. Following induction of conscious sedation the patient underwent synchronized cardioversion at 360 J. This was attempted 3 times without successful return to sinus rhythm. Total conscious sedation time was approximately 15. Patient tolerated procedure well without complication History & Record Review Discussion w/independent historian: EMS personnel, Patient and Family Lab Data Attestation: I reviewed the patient's lab results. Labs: Laboratory Results - last 24 hr 02/28/24 02:04 WBC 6.9 RBC 4.10 L Hgb 12.9 L Hct 39.4 L MCV 96.1 H MCH 31.5 MCHC 32.7 RDW Std Deviation 51.8 H RDW Coeff of Gaby 14.7 H Plt Count 270 MPV 9.0 Immature Gran % (Auto) 1.500 H Neut % (Auto) 38.0 L Lymph % (Auto) 34.4 [place] % (Auto) 20.1 H Eos % (Auto) 5.4 H Baso % (Auto) 0.6 Absolute Neuts (auto) 2.6 Absolute Lymphs (auto) 2.36 Nucleated RBC % 0 PT 13.7 INR 1.1 APTT 29.4 Sodium 139 Potassium 3.7 Chloride 105 Carbon Dioxide 27.0 Anion Gap 7 BUN 15 Creatinine 0.81 Estim Creat Clear Calc 56.70 Est GFR (MDRD) Af Amer 116 Est GFR (MDRD) Non-Af 96 BUN/Creatinine Ratio 18.5 Glucose 131 H Calcium 9.1 Magnesium 2.0 TSH 0.624 Radiography Diagnostic Testing: Clinical Impression(s) from Imaging Studies Chest X-Ray 02/28/24 02:30 IMPRESSION: Bibasilar atelectasis. Otherwise unremarkable exam. Electronically Signed: Aki Badillo MD at 3:04 EST Reading Location ID and State: [facility] / [place] Tel , Service support , Chest x-ray as interpreted by the emergency medicine physician reveals atelectasis without acute infiltrate or pneumothorax or pleural effusion Procedures Procedural Sedation 1 (Initial Baseline): Consent Signed: Yes Any Problems With Anesthesia: No You/Your family experience fever (hyperthermia) w/anesthesia: No Sedation medication: Versed Dose: 30 Route: IV [place]amp[place] Score: Class II ASA Classification: III Critical Care Time Critical Care Time: Yes Critical care time (excluding procedures): Discussing w/Patient &/or Family/Poultry Pathologist, Discussing w/Consultants, Performing Direct Patient Care at Bedside and - (Please note critical care time of 31-minute) Discharge Plan Triage Chief Complaint: Chest Pain ED Provider: Khari Lindsay Dx/Rx/DC Orders Clinical Impression: Paroxysmal atrial fibrillation with rapid ventricular response, Hyperlipidemia, Hypertension Prescriptions: No Action nitroglycerin [Nitrostat] 0.4 mg tablet, sublingual 0.4 mg SUBLINGUAL Q5-15M PRN (Reason: Chest Pain) Patient Comments: pt. states he has never had to take it atorvastatin 20 mg tablet 10 mg PO QHS pantoprazole 40 mg tablet,delayed release (DR/EC) 40 mg PO DAILY acetaminophen [Tylenol] 325 mg tablet 650 mg PO Q6H PRN (Reason: Breakthrough Pain, Mild) doxycycline hyclate 100 mg capsule 100 mg PO BID 7 Days Qty: 14 0RF balsalazide 750 mg capsule 2,250 mg PO BID Rx Instructions: 750 mg PO 6 capsules per day; albuterol sulfate [Ventolin HFA] 90 mcg/actuation HFA aerosol inhaler 2 puff inhalation Q4H PRN PRN (Reason: Wheezing) Qty: 1 0RF levocetirizine 5 mg tablet 5 mg PO QHS Patient Comments: TAKE 1 TABLET BY MOUTH EVERYDAY AT BEDTIME metoprolol tartrate 25 mg tablet 12.5 mg PO BID Qty: 30 11RF Rx Instructions: Take 12.5mg (1/2 tab) twice daily Eliquis 5 mg tablet 2.5 mg PO BID Primary Care Provider: Marcelo Mccullough Chi Referrals: Marcelo Mccullough Chi, MD [Primary Care Provider] - Print Language: Romansh Disposition Disposition: Acute Care Hospital [facility]
--- NOTE | 2024-02-28 05:58 | HP.PCM.HOS_ITS ---
[facility] - General General Date of Admission: 02/28/24 Date of Service: 02/28/24 Chief Complaint: Chest Pain, Palpitations and Cough. [facility] Narrative IRWIN CORDERO, is a 83 M with a past medical history of essential hypertension; on metoprolol, hyperlipidemia; on atorvastatin, overweight; with BMI of 27.6 this admission, PAF; on apixaban with 3-4 episodes of refractory RVR that required electrical cardioversion and admission after Trelegy Ellipta administration (~18 months ago) followed by Dr. Miller of [facility], CAD; with history of NSTEMI s/p RCA stent (2016) on prn SL NTG with LVEF ~65% (10/2022), history of LLE DVT; on apixaban which was recently stopped and switched to oral BASA due to intestinal bleeding, listed allergy digoxin (dizziness, headache and fuzzy thoughts), chronic anemia, glaucoma, history of skin cancer, BPH, history of Crohn's disease; on balsalazide, GERD; with history of PUD on pantoprazole, history of colonoscopy, OA; with DDD and history of back surgery x 2 (2000) & (2008) and recently diagnosed URI; with patient recently started on oral doxycycline and prn albuterol inhaler who presents to [facility] ER complaining of chest pain, palpitations and cough. Mr. Li reports his symptoms began a one day prior to admission when he developed symptoms of a respiratory infection with bronchitis and was started with oral doxycycline with an as needed albuterol inhaler. Unfortunately, after he used his albuterol inhaler he noted persistent severe tachycardia with moderate chest pain that was ~5/10 and with nothing seeming to make the chest pain or tachycardia better so EMS was activated. Mr. Cordero denied associated fever, chills, nausea, vomiting or diaphoresis but he did admit to severe heart racing, palpitations and SOB. In the ER he was extensively treated with IV metoprolol and IV diltiazem with failed medical cardioversion and then three attempts at electrical cardioversion after conscious sedation with IV midazolam and IV propofol bolus without success with patient still in Atrial Fibrillation; with RVR likely due to Adverse Drug Reaction to recently started albuterol inhaler used as part of his treatment for recently diagnosed URI and he was then admitted to the PCU under observation status for ongoing care for a stay that is expected to be less than 2 midnights. [facility] Medical History (Updated 02/28/24 @ 06:[address] Jaime Servin, DO) Atherosclerosis of coronary artery of [place] heart without angina pectoris A-fib Paroxysmal atrial fibrillation Anemia New onset a-fib Heartburn Bronchitis PUD (peptic ulcer disease) Deep vein thrombosis of left lower extremity (2012) Essential (primary) hypertension DDD (degenerative disc disease) Non-ST elevation (NSTEMI) myocardial infarction (10/03/16) PND (post-nasal drip) Multiple allergies Cough Prostate enlargement Stomach ulcer GERD (gastroesophageal reflux disease) Glaucoma Skin cancer Unstable angina Hyperlipidemia Crohn disease Home Medications ?Medication ?Instructions ?Recorded ?Last Taken ?Type nitroglycerin 0.4 mg sublingual 0.4 mg sublingual Q5-15M PRN Chest 04/06/17 Unknown History tablet (Nitrostat) Pain balsalazide 750 mg capsule 2,250 mg PO TID stomach 07/11/19 02/27/24 History pantoprazole 40 mg tablet,delayed 40 mg PO DAILY stomach 01/26/20 02/20/22 09:00 History release acetaminophen 325 mg tablet 650 mg PO Q6H PRN Breakthrough 05/08/21 02/27/24 History (Tylenol) Pain, Mild albuterol sulfate 90 mcg/actuation 2 puff inhalation Q4H PRN PRN 10/26/22 02/27/24 Rx aerosol inhaler (Ventolin HFA) Wheezing ##1 levocetirizine 5 mg tablet 5 mg PO QHS 01/18/23 Unknown History atorvastatin 20 mg tablet 10 mg PO QHS cholesterol 03/24/23 02/27/24 History metoprolol tartrate 25 mg tablet 12.5 mg (1/2 x 25 mg) PO BID #30 07/13/23 Unknown Rx tabs apixaban 5 mg tablet (Eliquis) 2.5 mg PO BID blood thinner 10/28/23 02/23/24 History doxycycline hyclate 100 mg capsule 100 mg PO BID 7 days #14 caps 02/27/24 Unknown Rx Allergy/AdvReac Type Severity Reaction Status Date / Time albuterol Allergy Severe Chest Verified 02/28/24 06:45 tightness digoxin Allergy Intermediate Dizziness, Verified 02/28/24 06:41 headache, fuzzy thoughts ragweed pollen AdvReac Intermediate Nasal Verified 02/28/24 02:28 congestion Family History Father Heart disease Mother CVA (cerebral vascular accident) Surgical History History of dental surgery (04/15/21) History of coronary artery stent placement (10/05/16) Previous back surgery H/O colonoscopy Social History household members: spouse Smoking Status: Former smoker second hand exposure: No alcohol intake: never substance use type: does not use ROS ROS Narrative Review of Systems: Constitutional: Patient denies fever or chills. Eyes: Patient denies changes in vision or discharge from eyes. ENT: Patient admits to runny nose, sore throat but he denies ear pain. Resp: Patient admits to shortness of breath and congested cough. CV: Patient admits to chest pain, palpitations and heart racing. GI: Patient denies abdominal pain, nausea, vomiting, diarrhea or constipation. : Patient denies dysuria or hematuria. MSK: Patient denies arthralgias or myalgias. Skin: Patient denies rash, abscess or jaundice. Psych: Patient admits to anxiety about his 's progressively worsening Alzheimer's disease but he denies SI or HI. Neuro: Patient denies headache, paresthesias or focal neurologic deficits. Allergy: Patient denies lip swelling, tongue swelling or urticaria. Hematology: Patient admits to recent intestinal bleeding which caused him to be taken off of apixaban in favor of BASA. Endocrinology: Patient denies polyuria, polydipsia or polyphagia. 14 point review of systems otherwise negative save for positives noted above in HPI. Vital Signs Vital Signs Vital Signs: 02/28/24 02:19 02/28/24 02:24 02/28/24 02:31 Temperature 98.8 F Temperature Source Temporal Pulse Rate 144 H 139 H Pulse Rate [1 (Initial Baseline)] Pulse Rate [2] Pulse Rate [3] Pulse Rate [4] Pulse Rate [6] Respiratory Rate 18 Respiratory Rate [1 (Initial Baseline)] Respiratory Rate [3] Respiratory Rate [4] Respiratory Rate [5] Respiratory Rate [6] Respiratory Effort Short of Breath Blood Pressure 143/120 H 121/81 H Blood Pressure [1 (Initial Baseline)] Blood Pressure [3] Blood Pressure [6] Blood Pressure Mean 127 94 Pulse Ox 93 Oxygen Delivery Method Room Air Oxygen Delivery Method [1 (Initial Baseline)] Oxygen Delivery Method [2] Oxygen Delivery Method [3] Oxygen Delivery Method [4] Oxygen Delivery Method [6] Oxygen Flow Rate (L/min) Oxygen Flow Rate (L/min) [1 (Initial Baseline)] Oxygen Flow Rate (L/min) [2] Oxygen Flow Rate (L/min) [3] Oxygen Flow Rate (L/min) [4] Oxygen Flow Rate (L/min) [5] Oxygen Flow Rate (L/min) [6] EtCo2 (Normal 35-45 , high quality CPR 10-20 & ROSC>/=40mmHg EtCo2 (Normal 35-45 , high quality CPR 10-20 & ROSC>/=40mmHg [1 (Initial Baseline)] EtCo2 (Normal 35-45 , high quality CPR 10-20 & ROSC>/=40mmHg [2] EtCo2 (Normal 35-45 , high quality CPR 10-20 & ROSC>/=40mmHg [3] EtCo2 (Normal 35-45 , high quality CPR 10-20 & ROSC>/=40mmHg [4] EtCo2 (Normal 35-45 , high quality CPR 10-20 & ROSC>/=40mmHg [5] EtCo2 (Normal 35-45 , high quality CPR 10-20 & ROSC>/=40mmHg [6] 02/28/24 03:18 02/28/24 04:00 02/28/24 04:25 Temperature Temperature Source Pulse Rate 74 108 H 109 H Pulse Rate [1 (Initial Baseline)] Pulse Rate [2] Pulse Rate [3] Pulse Rate [4] Pulse Rate [6] Respiratory Rate 15 21 H 16 Respiratory Rate [1 (Initial Baseline)] Respiratory Rate [3] Respiratory Rate [4] Respiratory Rate [5] Respiratory Rate [6] Respiratory Effort Blood Pressure 113/95 H 118/82 H 109/74 Blood Pressure [1 (Initial Baseline)] Blood Pressure [3] Blood Pressure [6] Blood Pressure Mean 101 94 85 Pulse Ox 93 92 95 Oxygen Delivery Method Room Air Nasal Cannula Nasal Cannula Oxygen Delivery Method [1 (Initial Baseline)] Oxygen Delivery Method [2] Oxygen Delivery Method [3] Oxygen Delivery Method [4] Oxygen Delivery Method [6] Oxygen Flow Rate (L/min) 2 2 Oxygen Flow Rate (L/min) [1 (Initial Baseline)] Oxygen Flow Rate (L/min) [2] Oxygen Flow Rate (L/min) [3] Oxygen Flow Rate (L/min) [4] Oxygen Flow Rate (L/min) [5] Oxygen Flow Rate (L/min) [6] EtCo2 (Normal 35-45 , high quality CPR 10-20 & ROSC>/=40mmHg EtCo2 (Normal 35-45 , high quality CPR 10-20 & ROSC>/=40mmHg [1 (Initial Baseline)] EtCo2 (Normal 35-45 , high quality CPR 10-20 & ROSC>/=40mmHg [2] EtCo2 (Normal 35-45 , high quality CPR 10-20 & ROSC>/=40mmHg [3] EtCo2 (Normal 35-45 , high quality CPR 10-20 & ROSC>/=40mmHg [4] EtCo2 (Normal 35-45 , high quality CPR 10-20 & ROSC>/=40mmHg [5] EtCo2 (Normal 35-45 , high quality CPR 10-20 & ROSC>/=40mmHg [6] 02/28/24 04:31 02/28/24 04:41 02/28/24 05:17 Temperature Temperature Source Pulse Rate 98 105 H Pulse Rate [1 (Initial Baseline)] 125 H Pulse Rate [2] 123 H Pulse Rate [3] 92 Pulse Rate [4] 106 H Pulse Rate [6] 96 Respiratory Rate 15 16 Respiratory Rate [1 (Initial Baseline)] 15 Respiratory Rate [3] 14 Respiratory Rate [4] 17 Respiratory Rate [5] 18 Respiratory Rate [6] 15 Respiratory Effort Blood Pressure 110/63 118/85 H Blood Pressure [1 (Initial Baseline)] 141/100 H Blood Pressure [3] 118/70 Blood Pressure [6] 100/65 Blood Pressure Mean 78 96 Pulse Ox 95 96 Oxygen Delivery Method Nasal Cannula Room Air Oxygen Delivery Method [1 (Initial Baseline)] Nasal Cannula Oxygen Delivery Method [2] Nasal Cannula Oxygen Delivery Method [3] Nasal Cannula Oxygen Delivery Method [4] Nasal Cannula Oxygen Delivery Method [6] Nasal Cannula Oxygen Flow Rate (L/min) 2 2 Oxygen Flow Rate (L/min) [1 (Initial Baseline)] 2 Oxygen Flow Rate (L/min) [2] 2 Oxygen Flow Rate (L/min) [3] 2 Oxygen Flow Rate (L/min) [4] 2 Oxygen Flow Rate (L/min) [5] 4 Oxygen Flow Rate (L/min) [6] 4 EtCo2 (Normal 35-45 , high quality CPR 10-20 & ROSC>/=40mmHg EtCo2 (Normal 35-45 , high quality CPR 10-20 & ROSC>/=40mmHg [1 (Initial Baseline)] 26 EtCo2 (Normal 35-45 , high quality CPR 10-20 & ROSC>/=40mmHg [2] 32 EtCo2 (Normal 35-45 , high quality CPR 10-20 & ROSC>/=40mmHg [3] 28 EtCo2 (Normal 35-45 , high quality CPR 10-20 & ROSC>/=40mmHg [4] 28 EtCo2 (Normal 35-45 , high quality CPR 10-20 & ROSC>/=40mmHg [5] 27 EtCo2 (Normal 35-45 , high quality CPR 10-20 & ROSC>/=40mmHg [6] 27 02/28/24 05:27 02/28/24 05:32 02/28/24 05:37 Temperature Temperature Source Pulse Rate Pulse Rate [1 (Initial Baseline)] Pulse Rate [2] Pulse Rate [3] Pulse Rate [4] Pulse Rate [6] Respiratory Rate Respiratory Rate [1 (Initial Baseline)] Respiratory Rate [3] Respiratory Rate [4] Respiratory Rate [5] Respiratory Rate [6] Respiratory Effort Blood Pressure Blood Pressure [1 (Initial Baseline)] Blood Pressure [3] Blood Pressure [6] Blood Pressure Mean Pulse Ox Oxygen Delivery Method Nasal Cannula Nasal Cannula Nasal Cannula Oxygen Delivery Method [1 (Initial Baseline)] Oxygen Delivery Method [2] Oxygen Delivery Method [3] Oxygen Delivery Method [4] Oxygen Delivery Method [6] Oxygen Flow Rate (L/min) 4 4 4 Oxygen Flow Rate (L/min) [1 (Initial Baseline)] Oxygen Flow Rate (L/min) [2] Oxygen Flow Rate (L/min) [3] Oxygen Flow Rate (L/min) [4] Oxygen Flow Rate (L/min) [5] Oxygen Flow Rate (L/min) [6] EtCo2 (Normal 35-45 , high quality CPR 10-20 & ROSC>/=40mmHg 22 24 30 EtCo2 (Normal 35-45 , high quality CPR 10-20 & ROSC>/=40mmHg [1 (Initial Baseline)] EtCo2 (Normal 35-45 , high quality CPR 10-20 & ROSC>/=40mmHg [2] EtCo2 (Normal 35-45 , high quality CPR 10-20 & ROSC>/=40mmHg [3] EtCo2 (Normal 35-45 , high quality CPR 10-20 & ROSC>/=40mmHg [4] EtCo2 (Normal 35-45 , high quality CPR 10-20 & ROSC>/=40mmHg [5] EtCo2 (Normal 35-45 , high quality CPR 10-20 & ROSC>/=40mmHg [6] Weight Weight: 150 lb 12.739 oz Body Mass Index (BMI) 27.6 Physical Exam Const alert, oriented x3, no apparent distress and average body habitus General Appearance: cooperative HEENT normocephalic, head/scalp atraumatic, hearing grossly normal bilaterally and moist oral mucous membranes Eyes PERRL Neck no lymphadenopathy and supple Resp normal respiratory effort, no retractions, no use of accessory muscles and clear to auscultation bilaterally Cardio Cardio Narrative: Irregularly irregular @ ~120 bpm. GI normal to inspection, nondistended, normoactive bowel sounds, soft to palpation, non-tender and non-distended Extremity normal to inspection, full ROM and no clubbing, cyanosis or edema Skin Skin Narrative: Patient has no evidence of rash, abscess or jaundice. Neuro oriented x3, CN's II-XII intact bilaterally, moves all extremities and no focal motor deficits Sensorium / Orientation: awake, alert, oriented to person, oriented to place and oriented to time Speech: speech normal Psych affect normal Results Medical Records Data Attestation: I reviewed the patient's medical records Lab / Micro Data Attestation: I reviewed the patient's lab results. 02/28/24 02:04 02/28/24 02:04 Labs: Laboratory Results - last 24 hr 02/28/24 02:04: WBC 6.9, RBC 4.10 L, Hgb 12.9 L, Hct 39.4 L, MCV 96.1 H, MCH 31.5, MCHC 32.7, RDW Std Deviation 51.8 H, RDW Coeff of Gaby 14.7 H, Plt Count 270, MPV 9.0, Immature Gran % (Auto) 1.500 H, Neut % (Auto) 38.0 L, Lymph % (Auto) 34.4, Osborne % (Auto) 20.1 H, Eos % (Auto) 5.4 H, Baso % (Auto) 0.6, Absolute Neuts (auto) 2.6, Absolute Lymphs (auto) 2.36, Nucleated RBC % 0, PT 13.7, INR 1.1, APTT 29.4, Sodium 139, Potassium 3.7, Chloride 105, Carbon Dioxide 27.0, Anion Gap 7, BUN 15, Creatinine 0.81, Estim Creat Clear Calc 56.70, Est GFR (MDRD) Af Amer 116, Est GFR (MDRD) Non-Af 96, BUN/Creatinine Ratio 18.5, Glucose 131 H, Calcium 9.1, Magnesium 2.0, TSH 0.624 Imaging Radiology Impression Chest X-Ray 02/28/24 02:30 IMPRESSION: Bibasilar atelectasis. Otherwise unremarkable exam. Electronically Signed: Aki Badillo MD at 3:04 EST , Assessment & Plan Assessment/Plan (1) Paroxysmal atrial fibrillation with rapid ventricular response: (2) Adverse drug reaction: QUALIFIERS: Encounter type: initial encounter Qualified Code(s): T50.905A - Adverse effect of unspecified drugs, medicaments and biological substances, initial encounter (3) URI (upper respiratory infection): QUALIFIERS: URI type: unspecified URI Qualified Code(s): J06.9 - Acute upper respiratory infection, unspecified (4) Shortness of breath: (5) Hypertension: QUALIFIERS: Hypertension type: unspecified Qualified Code(s): I10 - Essential (primary) hypertension (6) Atherosclerosis of coronary artery of [place] heart without angina pectoris: QUALIFIERS: Coronary Disease-Associated Artery/Lesion type: [place] artery Qualified Code(s): I25.10 - Atherosclerotic heart disease of [place] coronary artery without angina pectoris (7) Coronary artery disease: QUALIFIERS: Associated angina: with stable angina Coronary Disease-Associated Artery/Lesion type: unspecified vessel or lesion type [place] vs. transplanted heart: [place] heart Qualified Code(s): I25.118 - Atherosclerotic heart disease of [place] coronary artery with other forms of angina pectoris (8) Hyperlipidemia: QUALIFIERS: Hyperlipidemia type: unspecified Qualified Code(s): E 78.5 - Hyperlipidemia, unspecified (9) Overweight (BMI 25.0-29.9): (10) History of DVT (deep vein thrombosis): PLAN: Plan 1. Recurrent PAF; on apixaban with 3-4 episodes of refractory RVR that required electrical cardioversion and admission followed by Dr. Miller of [facility] - Admit to PCU under observation status. Continue IV diltiazem drip with a goal to keep heart rate < 100 bpm. Resume Eliquis as previous. Check TSH. Check echocardiogram to evaluate LVEF. Finally, we will consult Dr. Miller to see this patient well-known to him for further recommendations with help appreciated in advance. 2. Adverse Drug Reaction to recently started albuterol inhaler used as part of his treatment for recently diagnosed URI precipitating #1 - Stop albuterol to prevent future similar episodes with this agent now added to his list of allergies as this is apparently his second episode due to adverse drug reaction to beta-agonist inhalers. Resume oral doxycycline as previous. 3. Essential hypertension; on metoprolol - Maintain current treatment. 4. CAD; with history of NSTEMI s/p RCA stent (2017) on prn SL NTG - Continue prn SL NTG. 5. Hyperlipidemia; on atorvastatin - Resume statin as before. 6. Overweight; with BMI of 27.6 this admission - Weight loss will be recommended. This complicates his case and may hamper recovery. 7. History of LLE DVT - Continue BASA as previous. Patient declines taking apixaban any longer due to recent and recurrent intestinal bleeding. 8. Listed allergy digoxin (dizziness, headache and fuzzy thoughts) - Noted. 9. Chronic anemia - Stable with hemoglobin of 12.9 g/dL present on admission. 10. Glaucoma - Noted with patient not on any pharmacologic therapy at this time. 11. History of skin cancer - noted. 12. BPH - Apparently stable with patient not on treatment. 13. History of Crohn's disease; on balsalazide - Restart this agent once patient is able to tolerate oral intake. 14. GERD; with history of PUD on pantoprazole - Continue PPI. 15. History of colonoscopy - Noted. 16. OA; with DDD and history of back surgery x 2 (2000) & (2008) - Noted. Give Tylenol prn. 17. DVT prophylaxis - SCD's only with recent intestinal bleeding on apixaban. Total time: Approximately (but not less than) 70 minutes. Charges/Coding Visit Charges OBSV E&M: 43317 Observ/hosp same date L2
[2024-02-28] MEDS: APIXABAN 2.5 MG TABLET (WCH) PO (06:08)
[2024-02-28] MEDS: Diltiazem 125 MG in Dextrose 5%-Water (100mL Bag) 100 ML IV (06:08)
--- NOTE | 2024-02-28 06:52 | ECHOCS_ITS ---
Reason For Study: Afib/Flutter Procedure This was a 2D Doppler, Color Flow transthoracic echocardiogram. The study was technically difficult. Contrast injection was performed. Exam performed portable in patient room. Left Ventricle Normal LV size. Left ventricular systolic function is normal. The left ventricular ejection fraction is 55 %. No regional wall motion abnormalities noted. Right Ventricle Normal RV size. Normal systolic function. Atria Normal left atrium. Normal right atrium. Mitral Valve There is mild mitral annular calcification. Aortic Valve Trisinus/trileaflet aortic valve. Pulmonic Valve Normal pulmonic valve. Great Vessels Normal aortic root. The pulmonary artery is normal size. Inferior vena cava collapse with sniff. Pericardium/Pleural No pericardial effusion. Medication Diluted definity 2ml given slow IV push to enhance endocardial definition. MMode/2D Measurements & Calculations LVIDd: 3.6 cm IVSd: 1.2 cm LAV(MOD-bp): 52.5 ml LVIDs: 2.3 cm LVPWd: 0.90 cm LAV(MOD-bp) Indexed: 31.0 ml/m2 RVDd: 4.5 cm FS: 36.0 % LAV(MOD-sp2): 43.8 ml LAV(MOD-sp4): 61.2 ml SV(MOD-sp4): 33.9 ml SV(sp4-el): 37.6 ml LVAd ap4: 21.9 cm2 LVLd ap4: 7.3 cm SI(MOD-sp4): 20.0 ml/m2 EDV(MOD-sp4): 53.2 ml EDV(sp4-el): 55.9 ml LVAs ap4: 11.6 cm2 LVLs ap4: 6.2 cm ESV(MOD-sp4): 19.3 ml ESV(sp4-el): 18.3 ml EF(MOD-sp4): 63.8 % EF(sp4-el): 67.2 % LA A4 area: 20.2 cm2 LA dimension(2D): 4.2 cm RA A4 area: 17.9 cm2 Doppler Measurements & Calculations MV E max yisel: 98.8 cm/sec MV V2 max: 119.7 cm/sec LV V1 max: 72.4 cm/sec MV max P.8 mmHg LV V1 max P.1 mmHg MV V2 mean: 54.7 cm/sec MV mean P.6 mmHg MV V2 VTI: 25.3 cm PA V2 max: 59.5 cm/sec TR max yisel: 262.8 cm/sec TR max P.6 mmHg ECHO/Echo Complete W/ Contrast Interpretation Summary Normal LV size. Left ventricular systolic function is normal. The left ventricular ejection fraction is 55 %. There is mild mitral annular calcification. Contrast injection was performed. Ordering Physician: Jaime Servin Referring Physician: Marcelo Mccullough Chi Performed By: Tank Kay RCS
[2024-02-28 07:51] LABS: Troponin-I HS 48 pg/mL (3.0-78.0)
--- NOTE | 2024-02-28 09:06 | PCM.CONS.C ---
Assessment & Plan Assessment/Plan (1) Paroxysmal atrial fibrillation with rapid ventricular response: PLAN: He does present with atrial fibrillation with a rapid ventricular response rate. He is currently on diltiazem. The plan will be to convert him to a beta-liang and increase the dose and possibly add amiodarone with the hope of preventing these episodes of atrial fibrillation. His last echocardiogram did demonstrate preserved ejection fraction. He will continue to be anticoagulated. (2) Chest pain: PLAN: He presents with chest discomfort at this time which is concerning for angina. My recommendation will be for us to exclude obstructive coronary disease and depending on the findings further recommendations will be made. Addendum: 11:18 AM. Cardiac catheterization demonstrated minimal disease with previously placed stents in the right coronary artery which is noted to be patent. The plan to be to continue aggressive medical therapy. (3) Hypertension: QUALIFIERS: Hypertension type: unspecified Qualified Code(s): I10 - Essential (primary) hypertension PLAN: His blood pressure appears to be under good control and I would not make any major changes. (4) Atherosclerosis of coronary artery of [place] heart without angina pectoris: QUALIFIERS: Coronary Disease-Associated Artery/Lesion type: [place] artery Qualified Code(s): I25.10 - Atherosclerotic heart disease of [place] coronary artery without angina pectoris PLAN: He does have previously known atherosclerotic cardiovascular disease. The plan at this time will be to perform a cardiac catheterization and depending on the findings further recommendations will be made. ( see results as noted above.) (5) Hyperlipidemia: QUALIFIERS: Hyperlipidemia type: unspecified Qualified Code(s): E78.5 - Hyperlipidemia, unspecified PLAN: He will continue with risk factor modification with lipid-lowering medication. HPI Consult Data Date of Consult: 02/28/24 HPI Narrative HPI Narrative: IRWIN GONZALEZ, is a 83 M who presents to the emergency room complaining of chest discomfort which she says was central and then radiated to both arms and his back. He called his sons about this and they suggested that he come to the emergency room. Interestingly he apparently had an upper respiratory tract infection few days ago went to the urgent care was put on antibiotics as well as albuterol and he thinks this triggered his atrial fibrillation. He does have a previous history of paroxysmal atrial fibrillation. In addition he has a history of hypertension, hyperlipidemia, coronary artery disease status post cardiac catheterization and angioplasty and stenting of the proximal right coronary artery in September 2016. His LAD had a questionable lesion for which she underwent stress testing which did not demonstrate any evidence of ischemia. Circumflex artery did not demonstrate any significant disease. He does have a history of previous DVT as well for which she has been on Eliquis and aspirin. He had presented to the emergency room in February 2022 with chest discomfort was noted to be in atrial fibrillation with rapid ventricular response rate for which she converted to sinus rhythm on intravenous diltiazem. His last echocardiogram performed at that time demonstrated preserved ejection fraction and normal atrial sizes cardiac enzymes were negative. On this visit his electrocardiogram demonstrated atrial fibrillation with a rapid ventricular response rate and ST depression noted in V4 through V6. [facility] Medical History Atherosclerosis of coronary artery of [place] heart without angina pectoris A-fib Paroxysmal atrial fibrillation Anemia New onset a-fib Heartburn Bronchitis PUD (peptic ulcer disease) Deep vein thrombosis of left lower extremity (2012) Essential (primary) hypertension DDD (degenerative disc disease) Non-ST elevation (NSTEMI) myocardial infarction (10/03/16) PND (post-nasal drip) Multiple allergies Cough Prostate enlargement Stomach ulcer GERD (gastroesophageal reflux disease) Glaucoma Skin cancer Unstable angina Hyperlipidemia Crohn disease Home Medications ?Medication ?Instructions ?Recorded ?Last Taken ?Type nitroglycerin 0.4 mg sublingual 0.4 mg sublingual Q5-15M PRN Chest 04/06/17 Unknown History tablet (Nitrostat) Pain balsalazide 750 mg capsule 2,250 mg PO TID stomach 07/11/19 02/27/24 History pantoprazole 40 mg tablet,delayed 40 mg PO DAILY stomach 01/26/20 02/20/22 09:00 History release acetaminophen 325 mg tablet 650 mg PO Q6H PRN Breakthrough 05/08/21 02/27/24 History (Tylenol) Pain, Mild albuterol sulfate 90 mcg/actuation 2 puff inhalation Q4H PRN PRN 10/26/22 02/27/24 Rx aerosol inhaler (Ventolin HFA) Wheezing ##1 levocetirizine 5 mg tablet 5 mg PO QHS 01/18/23 Unknown History atorvastatin 20 mg tablet 10 mg PO QHS cholesterol 03/24/23 02/27/24 History metoprolol tartrate 25 mg tablet 12.5 mg (1/2 x 25 mg) PO BID #30 07/13/23 02/27/24 Rx tabs apixaban 5 mg tablet (Eliquis) 2.5 mg PO BID blood thinner 10/28/23 02/23/24 History doxycycline hyclate 100 mg capsule 100 mg PO BID 7 days #14 caps 02/27/24 Unknown Rx budesonide 9 mg tablet,delayed and 9 mg PO DAILY 02/28/24 02/26/24 History extended release vit C 250 mg-vit E 90 mg-zinc 40 1 tab PO BID 02/28/24 Unknown History mg-copper 1 [id number] capsule (PreserVision AREDS-2) Allergy/AdvReac Type Severity Reaction Status Date / Time albuterol Allergy Severe Chest Verified 02/28/24 06:45 tightness digoxin Allergy Intermediate Dizziness, Verified 02/28/24 06:41 headache, fuzzy thoughts ragweed pollen AdvReac Intermediate Nasal Verified 02/28/24 02:28 congestion Family History Father Heart disease Mother CVA (cerebral vascular accident) Surgical History History of dental surgery (04/15/21) History of coronary artery stent placement (10/05/16) Previous back surgery H/O colonoscopy Social History household members: spouse Smoking Status: Former smoker second hand exposure: No alcohol intake: never substance use type: does not use ROS Constitutional Constitutional: Denies fever(s) or weight loss Eyes Eyes: Reports systems reviewed and no addt'l complaints, except as documented ENT HEENT: Reports systems reviewed and no addt'l complaints, except as documented Cardiovascular Cardiovascular: Reports chest pain at rest and palpitations; Denies chest pain with activity, dyspnea at rest, dyspnea on exertion, edema or paroxysmal nocturnal dyspnea Respiratory/Chest Respiratory/Chest: Reports dyspnea on exertion; Denies productive cough, shortness of breath at rest or shortness of breath with exertion Gastrointestinal Gastrointestinal: Denies change in bowel habits, nausea, vomiting or weight changes Genitourinary Genitourinary: Denies difficulty urinating Musculoskeletal Musculoskeletal: Denies joint stiffness or muscle weakness Integumentary Integumentary: Denies lesions Neurologic Neurologic: Denies dizziness or syncope Psychiatric Psychiatric: Denies anxiety Endocrine Endocrinology: Denies excessive sweating or fatigue Hematologic/Lymphatic Hematologic/Lymphatic: Denies anemia Allergic/Immunologic Allergic/Immunologic: Denies seasonal rhinorrhea Physical Exam Const alert, oriented x3 and no apparent distress General Appearance: cooperative HEENT hearing grossly normal bilaterally Head and Scalp: atraumatic Eyes EOMs intact bilaterally Neck General: normal visual inspection Chest inspection of chest normal and palpation of chest normal Resp normal respiratory effort Auscultation: clear to auscultation bilaterally Cardio S1 normal heart sound and S2 normal heart sound Jugular Venous Distention: JVD Rhythm: abnormal rhythm irregularly irregular GI normal to inspection, nondistended, normoactive bowel sounds Extremity normal capillary refill and no pedal edema Peripheral Pulses: Yes pulses 2+ throughout and femoral pulses present Skin no rashes or lesions noted Neuro oriented x3 and CN's II-XII intact bilaterally Psych Appearance: grossly normal and appropriate Risk Stratification Risk Stratification Applicable: Yes Age >/= 65: Yes >/= 3 CAD Risk Factors (HTN, HLD, DM, family hx of CAD, or current smoker): Yes Aspirin Use in the Past 7 Days: Yes Severe Angina (>/= episodes in 24 hours): No EKG ST Changes >/= 0.5mm: Yes Positive Cardiac Marker: No KEYLA Risk Stratification Score: 4 KEYLA % Risk: 20% Risk Objective Data Vital Signs: Vital Signs Temp Pulse Resp BP Pulse Ox O2 Del Method O2 Flow Rate 98.8 F 113 H 16 103/65 92 Room Air 2 02/28/24 06:48 02/28/24 08:33 02/28/24 08:33 02/28/24 08:33 02/28/24 08:33 02/28/24 08:33 02/28/24 06:08 Oxygen Flow Rate (L/min) [6] 4 Oxygen Flow Rate (L/min) [5] 4 Oxygen Flow Rate (L/min) [4] 2 Oxygen Flow Rate (L/min) [3] 2 Oxygen Flow Rate (L/min) [2] 2 Oxygen Flow Rate (L/min) [1 ( 2 Initial Baseline)] Oxygen Flow Rate (L/min) 2 Oxygen Delivery Method [6] Nasal Cannula Oxygen Delivery Method [4] Nasal Cannula Oxygen Delivery Method [3] Nasal Cannula Oxygen Delivery Method [2] Nasal Cannula Oxygen Delivery Method [1 ( Nasal Cannula Initial Baseline)] Oxygen Delivery Method Room Air Weight: 150 lb 12.739 oz Body Mass Index (BMI) 27.6 Intake & Output: Intake and Output for Last 24 Hours 02/26/24 02/27/24 02/28/24 23:59 23:59 23:59 Intake Total 512.08 / 512.08 Balance 512.08 / 512.08 Lab / Micro Data 02/28/24 02:04 02/28/24 02:04 Labs: Laboratory Results - last 24 hr 02/28/24 02:04: WBC 6.9, RBC 4.10 L, Hgb 12.9 L, Hct 39.4 L, MCV 96.1 H, MCH 31.5, MCHC 32.7, RDW Std Deviation 51.8 H, RDW Coeff of Gaby 14.7 H, Plt Count 270, MPV 9.0, Immature Gran % (Auto) 1.500 H, Neut % (Auto) 38.0 L, Lymph % (Auto) 34.4, Steele % (Auto) 20.1 H, Eos % (Auto) 5.4 H, Baso % (Auto) 0.6, Absolute Neuts (auto) 2.6, Absolute Lymphs (auto) 2.36, Nucleated RBC % 0, PT 13.7, INR 1.1, APTT 29.4, Sodium 139, Potassium 3.7, Chloride 105, Carbon Dioxide 27.0, Anion Gap 7, BUN 15, Creatinine 0.81, Estim Creat Clear Calc 56.70, Est GFR (MDRD) Af Amer 116, Est GFR (MDRD) Non-Af 96, BUN/Creatinine Ratio 18.5, Glucose 131 H, Calcium 9.1, Magnesium 2.0, TSH 0.624 02/28/24 07:03: Troponin I High Sens 48, TSH 1.300 Cardiology Labs/Tests 02/28/24 02:04: WBC 6.9, RBC 4.10 L, Hgb 12.9 L, Hct 39.4 L, MCV 96.1 H, MCH 31.5, MCHC 32.7, Plt Count 270, MPV 9.0, Immature Gran % (Auto) 1.500 H, Neut % (Auto) 38.0 L, Lymph % (Auto) 34.4, Steele % (Auto) 20.1 H, Eos % (Auto) 5.4 H, Baso % (Auto) 0.6, Absolute Neuts (auto) 2.6, Nucleated RBC % 0, PT 13.7, INR 1.1, APTT 29.4, Sodium 139, Potassium 3.7, Chloride 105, Carbon Dioxide 27.0, Anion Gap 7, BUN 15, Creatinine 0.81, Est GFR (MDRD) Af Amer 116, Est GFR (MDRD) Non-Af 96, BUN/Creatinine Ratio 18.5, Glucose 131 H, Calcium 9.1, Magnesium 2.0 Rhythm: EKG: ECHO: Stress Test: Cardiac Cath: PCI: CT Surgery: Holter monitor: EPS: PPM: CXR: Chest CT Scan: Radiography Diagnostic Testing: Radiology Impression Chest X-Ray 02/28/24 02:30 IMPRESSION: Bibasilar atelectasis. Otherwise unremarkable exam. Electronically Signed: Aki Badillo MD at 3:04 EST ,
[2024-02-28] MEDS: Aspirin 81 MG TAB.CHEW PO (09:19)
[2024-02-28] MEDS: Metoprolol Tartrate 25 MG Tablet 12.5 MG PO (09:19)
--- NOTE | 2024-02-28 09:22 | CASEMGMT ---
Insurance review for hospitals In-network with [employer] M[employer] PPO insurance if transfer is recommended is as follows: [facility], [place], [facility], [place], [facility], [facility], [facility], [facility], [place], [facility]), and . Izzy Cameron, Discharge Planning Asst.
[2024-02-28] MEDS: 0.9% Normal Saline (1000mL) 1,000 ML 50 ML IV (09:25)
--- NOTE | 2024-02-28 11:14 | CL.D_ITS ---
Patient Name: IRWIN GONZALEZ Study Date: 02/28/2024 Performing: Tyson Miller MD Ht: 62 inches 157.48 cm : 1940 Wt: 150.8 lbs 68.4 kg Age: 83 Gender: male BSA: 1.7 PROCEDURE(S) PERFORMED [id number])LHC/COR/LV CLINICAL PROFILE AND INDICATIONS Indications: Cardiac Arrythmia Heart Failure: None Stress/Imaging Stress/Image Study Performed: No CAD Presentations: Symptom unlikely to be ischemic. CONCLUSIONS Diffuse coronary disease with no high-grade stenosis previously placed stent is noted to be patent preserved ejection fraction. RECOMMENDATIONS Medical therapy DESCRIPTION OF PROCEDURE The patient arrived to the procedure lab. The risks and benefits of the procedure as well as a full description of our services here and current unavailability of surgical backup were fully explained to the patient and/or their significant other prior to the catheterization. The Timeout was completed, verifying the correct patient and procedure. The patient's procedural site was prepped and draped in the usual fashion. Local anesthetic was given subcutaneously to right radial region with Lidocaine 2%. Using a modified Seldinger technique, arterial access was obtained via the right radial artery, a 6Fr sheath was inserted. Left Coronary Artery selective angiography was performed in multiple views using a 5 Fr. 4.0 [place] catheter. Right Coronary Artery selective angiography was then performed in multiple views using a 5 Fr. JR 4 catheter. Left Ventriculography was performed in DALY projection using a 5 Fr. Pigtail catheter. LV to AO pullback pressures were then recorded.The arterial sheath was pulled and a TR Band was applied for hemostasis CORONARY ANGIOGRAPHY DOMINANCE: Right Dominant LEFT HEART ASSESSMENT Left Ventricular Ejection Fraction: by LV Gram 75 % Normal LV wall motion Normal Left Ventricular systolic function LEFT MAIN: Mild luminal irregularities LEFT ANTERIOR DESCENDING ARTERY: Medium size vessel with mild calcification with diffuse disease of 30 to 40% stenosis. CIRCUMFLEX ARTERY: Nondominant vessel with mild diffuse disease with first obtuse marginal branch with moderate diffuse disease in the second and third obtuse marginal branches which are large with mild diffuse disease but no high-grade stenosis RIGHT CORONARY ARTERY: Dominant vessel previously stented in the proximal to mid segment with a stent noted to be patent with minimal in-stent stenosis and diffuse 30 to 40% disease noted. COMPLICATIONS No Complications PROCEDURE MEDICATIONS Versed .5 mg IV Fentanyl 25 mcg IV Oxygen: 2 L/min via nasal cannula Heparin given IA 02/28/2024 11:01:05 Verapamil 2.5mg, 2000 units of Heparin given IA 02/28/2024 11:01:05 SUMMARY OF HEMODYNAMIC DATA Time AIR REST ECG 10:49:44 AO 117/13 (31) SA 11:00:22 LV 112/11, 15 11:06:52 LV 111/12, 18 11:07:00 LV 106/20, 27 11:07:28 LV 107/14, 19 11:07:36 LVp 105/13, 20 11:07:41 AOp 0/-20 (43) 11:07:48 Signed By Tyson Miller MD On 02/28/2024 11:15:32 Signed By Tyson Miller MD On 02/28/2024 11:15:21 Tyson Miller MD
[2024-02-28] MEDS: Zinc Sulfate 50 mg zinc (220 mg) ORAL capsule PO (12:15)
[2024-02-28] MEDS: Cholecalciferol (Vit D3) 125 MCG CAPSULE (5,000 UNITS) PO (12:15)
[2024-02-28] MEDS: Ascorbic Acid 500 MG Tablet 1000 MG PO ×2 (12:15→17:01)
[2024-02-28] MEDS: Pantoprazole Sodium 40 MG Tablet PO (12:21)
[2024-02-28] MEDS: Doxycycline 100 MG CAPSULE PO (12:22)
[2024-02-28] MEDS: Loratadine 10 MG Tablet PO (12:22)
[2024-02-28] MEDS: guaiFENesin 10 ML UDC (200MG/10ML) 20 ML PO ×2 (12:25→20:58)
[2024-02-28] MEDS: Amiodarone 200 MG Tablet PO ×2 (14:21→21:01)
[2024-02-28] MEDS: 0.9% Saline Lock 10 ML Syringe IV (17:02)
--- NOTE | 2024-02-28 17:55 | EKG12_ITS ---
Test Reason : Blood Pressure : */* mmHG Vent. Rate : 142 BPM Atrial Rate : * BPM P-R Int : * ms QRS Dur : 90 ms QT Int : 304 ms P-R-T Axes : * -12 73 degrees QTcB Int : 467 ms Critical Test Result: High HR Atrial fibrillation with rapid ventricular response Nonspecific ST-T changes Abnormal ECG Confirmed by REFUGIO WOOD, ALIYAH ([id number]), supervising editor trailer NEERAJ MEJIAS ([id number]) on 03/08/2024 1:42:48 P M Referred By: Confirmed By: ALIYAH HUFF MD
--- NOTE | 2024-02-28 18:21 | PN.HOSP_ITS ---
Hospitalist Note Patient is an 83-year-old white male who presented to the emergency department at [facility] on 02/28/2024 with a chief complaint of chest discomfort that was located in his central chest and radiated to his arms and back. He called his sons when this occurred and they recommended him coming to the emergency department for evaluation. Patient did report that he was diagnosed with an upper respiratory infection a few days previously and went to an urgent care at which time he was placed on antibiotics as well as albuterol and he was found to be in A-fib on presentation. Patient thought the albuterol triggered his atrial fibrillation with RVR. Patient has known history of A-fib but typically is sinus rhythm. His last cardiac catheterization was in 2017 at which time he had PCI of the RCA. His LAD had a questionable lesion for which she underwent stress testing and this did not demonstrate any evidence of ischemia and his circumflex had no identifiable disease. At baseline he is on aspirin and Eliquis. He has had previous issues with A-fib with RVR and had successful cardioversion. EKG on presentation showed A-fib with RVR and ST depression in leads V4 through V6. He underwent 3 cardioversions in the emergency department however failed cardioversion and was placed on Cardizem drip. He was admitted to the telemetry floor and cardiology was consulted. Given his respiratory symptoms a respiratory viral panel was ordered and he was found to be rhinovirus positive. Given the results of his viral panel we will discontinue antibiotics and continue supportive care. Cardiology evaluated the patient took him to the Data Entry [facility] on 02/28/2024 at which time he was found to have right dominant coronary vasculature with left main showing mild luminal L irregularities, medium sized LAD with mild calcification at 30 to 40%, mild diffuse disease in his circumflex and right coronary artery disease showing diff use 30 to 40% disease. He was converted to beta-liang and amiodarone in the hopes to reduce his atrial fibrillation episodes. EF was preserved on his cath and no repeat echocardiogram was pursued at this time. He ultimately has cardioverted. Probable plan for discharge home tomorrow as long as he remains medically stable.
[2024-02-28] MEDS: BALSALAZIDE DISODIUM 750 MG CAPSULE 2250 MG PO (20:59)
[2024-02-28] MEDS: Metoprolol Tartrate 25 MG Tablet PO (21:02)
[2024-02-28] MEDS: Atorvastatin Calcium 10 MG Tablet PO (21:04)
[2024-02-29 03:15] VITALS: BP 115/58; PULSE 65; RESP 16; TEMP 36.7; O2SAT 92
[2024-02-29] MEDS: Amiodarone 200 MG Tablet PO (05:16)
[2024-02-29] MEDS: BALSALAZIDE DISODIUM 750 MG CAPSULE 2250 MG PO (05:17)
[2024-02-29 05:35] VITALS: BMI 27.1
[2024-02-29 06:26] LABS: Absolute Lymphocyte Count 1.13 X10^3/uL (0.83-4.51); Absolute Neutrophil Count 2.2 X10^3/uL (2.0-7.7); Basophil# 0.02 X10^3/uL; Basophil% 0.4 % (0-1); Eosinophil# 0.29 X10^3/uL; Hematocrit 35.6 % (40-54); Hemoglobin 11.5 g/dL (13.0-16.5); Lymphocyte # 1.13 X10^3/ul (0.83-4.51); Lymphocyte % 23.2 % (19-41); Mean Corp Hgb Conc 32.3 g/dL (32-36); Mean Corpuscular Hgb 31.1 pg (27.0-32.0); Mean Corpuscular Volume 96.2 fL (80-94); Mean Platelet Vol. 9.1 fl (6.2-12.0); Monocyte% 24.6 % (0-10); NRBC Flagged by Analyzer 0 % (0-5); Neutrophil # 2.19 X10^3/uL (2.7-7.7); Platelet Count 243 K/mm3 (150-450); RBC Distribution Width CV 14.9 % (11.6-14.6); RBC Distribution Width SD 53.5 fl (35.1-43.9); White Blood Count 4.9 K/mm3 (4.4-11.0)
[2024-02-29 06:50] LABS: ALB/GLOB Ratio 0.8 RATIO (0.9-2.4); AST(SGOT) 20 U/L (15-37); Alanine Aminotransfer ALT/SGPT 13 U/L (16-61); Albumin, Serum 2.8 g/dL (3.2-5.0); Alkaline Phosphatase 52 U/L (45-117); Anion Gap 5 (5-15); BUN 12 mg/dL (7-18); BUN/Creat Ratio 17.7 RATIO (10-20); Calcium,Total 7.9 mg/dL (8.5-10.1); Chloride 108 mmol/L (98-107); Creatinine, Serum 0.68 mg/dL (0.70-1.30); EST Glomerular Filtration Rate 118 mL/min (>60); Est Glom Filt Rate - Afr Amer 143 mL/min (>60); Estimated Creatinine Clearance 56.99 ml/min; Globulin 3.3 g/dL (2.2-4.2); Glucose 101 mg/dL (74-106); Magnesium 1.9 mg/dL (1.6-2.6); Phosphorus 2.6 mg/dL (2.5-4.9); Potassium 3.6 mmol/L (3.5-5.1); Protein, Total 6.1 g/dL (6.4-8.2); Sodium Level 139 mmol/L (136-145)
[2024-02-29 07:39] VITALS: O2SAT 94
--- NOTE | 2024-02-29 07:52 | PN.CARD_ITS ---
Subjective Subjective patient seen and evaluated Objective Data Vital Signs: Vital Signs Temp Pulse Resp BP Pulse Ox O2 Del Method O2 Flow Rate 98.1 F 65 16 115/58 L 94 Room Air 2 02/29/24 03:15 02/29/24 03:15 02/29/24 03:15 02/29/24 03:15 02/29/24 07:39 02/29/24 07:39 02/28/24 06:08 Oxygen Flow Rate (L/min) [6] 4 Oxygen Flow Rate (L/min) [5] 4 Oxygen Flow Rate (L/min) [4] 2 Oxygen Flow Rate (L/min) [3] 2 Oxygen Flow Rate (L/min) [2] 2 Oxygen Flow Rate (L/min) [1 ( 2 Initial Baseline)] Oxygen Flow Rate (L/min) 2 Oxygen Delivery Method [6] Nasal Cannula Oxygen Delivery Method [4] Nasal Cannula Oxygen Delivery Method [3] Nasal Cannula Oxygen Delivery Method [2] Nasal Cannula Oxygen Delivery Method [1 ( Nasal Cannula Initial Baseline)] Oxygen Delivery Method Room Air Weight: 148 lb 5.938 oz Body Mass Index (BMI) 27.1 Intake & Output: Intake and Output for Last 24 Hours 02/27/24 02/28/24 02/29/24 23:59 23:59 23:59 Intake Total 1708.91 / 1708.91 1000 / 1000 Output Total 300 / 300 Balance 1708.91 / 1708.91 700 / 700 Lab / Micro Data 02/29/24 05:16 02/29/24 05:16 Labs: Laboratory Results - last 24 hr 02/29/24 05:16: WBC 4.9, RBC 3.70 L, Hgb 11.5 L, Hct 35.6 L, MCV 96.2 H, MCH 31.1, MCHC 32.3, RDW Std Deviation 53.5 H, RDW Coeff of Gaby 14.9 H, Plt Count 243, MPV 9.1, Immature Gran % (Auto) 0.800, Neut % (Auto) 45.0 L, Lymph % (Auto) 23.2, Blair % (Auto) 24.6 H, Eos % (Auto) 6.0 H, Baso % (Auto) 0.4, Absolute Neuts (auto) 2.2, Absolute Lymphs (auto) 1.13, Nucleated RBC % 0, Sodium 139, Potassium 3.6, Chloride 108 H, Carbon Dioxide 26.0, Anion Gap 5, BUN 12, C reatinine 0.68 L, Estim Creat Clear Calc 56.99, Est GFR (MDRD) Af Amer 143, Est GFR (MDRD) Non-Af 118, BUN/Creatinine Ratio 17.7, Glucose 101, Calcium 7.9 L, Phosphorus 2.6, Magnesium 1.9, Total Bilirubin 1.10 H, AST 20, ALT 13 L, Alkaline Phosphatase 52, Total Protein 6.1 L, Albumin 2.8 L, Globulin 3.3, A lbumin/Globulin Ratio 0.8 L Micro: Microbiology 02/28/24 08:37 Mucosa - Nasopharyngeal Respiratory Panel (PCR) - Final Rhinovirus Cardiology Labs/Tests 02/29/24 05:16: WBC 4.9, RBC 3.70 L, Hgb 11.5 L, Hct 35.6 L, MCV 96.2 H, MCH 31.1, MCHC 32.3, Plt Count 243, MPV 9.1, Immature Gran % (Auto) 0.800, Neut % (Auto) 45.0 L, Lymph % (Auto) 23.2, Blair % (Auto) 24.6 H, Eos % (Auto) 6.0 H, Baso % (Auto) 0.4, Absolute Neuts (auto) 2.2, Nucleated RBC % 0, Sodium 139, Potassium 3.6, Chloride 108 H, Carbon Dioxide 26.0, Anion Gap 5, BUN 12, C reatinine 0.68 L, Est GFR (MDRD) Af Amer 143, Est GFR (MDRD) Non-Af 118, BUN/Creatinine Ratio 17.7, Glucose 101, Calcium 7.9 L, Phosphorus 2.6, Magnesium 1.9, Total Bilirubin 1.10 H Rhythm: EKG: ECHO: Stress Test: Cardiac Cath: PCI: CT Surgery: Holter monitor: EPS: PPM: CXR: Chest CT Scan: Radiography Diagnostic Testing: Radiology Impression Echocardiogram 02/28/24 06:52 Interpretation Summary Normal LV size. Left ventricular systolic function is normal. The left ventricular ejection fraction is 55 %. There is mild mitral annular calcification. Contrast injection was performed. Ordering Physician: Jaime Servin Referring Physician: Marcelo Mccullough Chi Performed By: Tank Kay RCS Physical Exam Const alert, oriented x3 and no apparent distress General Appearance: cooperative HEENT hearing grossly normal bilaterally Head and Scalp: atraumatic Eyes EOMs intact bilaterally Neck General: normal visual inspection Chest inspection of chest normal and palpation of chest normal Resp normal respiratory effort Auscultation: clear to auscultation bilaterally Cardio S1 normal heart sound and S2 normal heart sound Jugular Venous Distention: JVD Rhythm: abnormal rhythm irregularly irregular GI normal to inspection, nondistended, normoactive bowel sounds Extremity normal capillary refill and no pedal edema Peripheral Pulses: Yes pulses 2+ throughout and femoral pulses present Skin no rashes or lesions noted Neuro oriented x3 and CN's II-XII intact bilaterally Psych Appearance: grossly normal and appropriate Assessment & Plan Assessment/Plan (1) Paroxysmal atrial fibrillation with rapid ventricular response: PLAN: He does present with atrial fibrillation with a rapid ventricular response rate. He is currently on diltiazem. The plan will be to convert him to a beta- liang and increase the dose and amiodarone with the hope of preventing these episodes of atrial fibrillation. His last echocardiogram did demonstrate preserved ejection fraction. He will continue to be anticoagulated. (2) Chest pain: PLAN: He presented with chest discomfort and underwent a Cardiac catheterization demonstrated minimal disease with previously placed stents in the right coronary artery which is noted to be patent. The plan to be to continue aggressive medical therapy. (3) Hypertension: QUALIFIERS: Hypertension type: unspecified Qualified Code(s): I10 - Essential (primary) hypertension PLAN: His blood pressure appears to be under good control and I would not make any major changes. (4) Atherosclerosis of coronary artery of [place] heart without angina pectoris: QUALIFIERS: Coronary Disease-Associated Artery/Lesion type: [place] artery Qualified Code(s): I25.10 - Atherosclerotic heart disease of [place] coronary artery without angina pectoris PLAN: He does have previously known atherosclerotic cardiovascular disease. (5) Hyperlipidemia: QUALIFIERS: Hyperlipidemia type: unspecified Qualified Code(s): E 78.5 - Hyperlipidemia, unspecified PLAN: He will continue with risk factor modification with lipid-lowering medication.
[2024-02-29 09:26] VITALS: BP 117/66; PULSE 78; RESP 17; TEMP 36.6; O2SAT 94
[2024-02-29] MEDS: Aspirin 81 MG TAB.CHEW PO (09:30)
[2024-02-29 09:31] VITALS: PULSE 78
[2024-02-29] MEDS: Pantoprazole Sodium 40 MG Tablet PO (09:31)
[2024-02-29] MEDS: Ascorbic Acid 500 MG Tablet 1000 MG PO (09:31)
[2024-02-29] MEDS: Metoprolol Tartrate 25 MG Tablet PO (09:31)
[2024-02-29] MEDS: Loratadine 10 MG Tablet PO (09:31)
[2024-02-29] MEDS: Cholecalciferol (Vit D3) 125 MCG CAPSULE (5,000 UNITS) PO (09:31)
[2024-02-29] MEDS: Zinc Sulfate 50 mg zinc (220 mg) ORAL capsule PO (09:31)
--- NOTE | 2024-02-29 11:36 | CASEMGMT ---
Met with patient to complete SHARIF form. SHARIF form explained to patient who voiced understanding and signed form. Original form placed in pt?s chart and copy provided to patient. Izzy Cameron, Discharge Planning Asst
--- NOTE | 2024-02-29 12:04 | DS.PCM_ITS ---
Providers Date of Admission: 02/28/24 Primary Care Physician: Dr. Marcelo Mccullough MD Consultations 02/28/24 07:39 Consult: Cardiology Routine Consulting Provider: Tyson Miller Reason for Consult: A-fib with RVR EMERGENT Consult: No MD Notified: Yes Date Notified: 02/28/24 Time Notified: 07:39 Method of Notification: Text Reason For Visit: AFIB with RVR refractory to medical & electrical Diagnosis Discharge Diagnosis (1) Paroxysmal atrial fibrillation with rapid ventricular response: Status: Acute Code(s): I48.0 - Paroxysmal atrial fibrillation (2) Chest pain: Status: Resolved Code(s): R07.9 - Chest pain, unspecified (3) Hypertension: Status: Chronic Code(s): I10 - Essential (primary) hypertension Qualifiers: Hypertension type: unspecified Qualified Code(s): I10 - Essential (primary) hypertension (4) Atherosclerosis of coronary artery of [place] heart without angina pectoris: Status: Acute Code(s): I25.10 - Atherosclerotic heart disease of [place] coronary artery without angina pectoris Qualifiers: Coronary Disease-Associated Artery/Lesion type: [place] artery Qualified Code(s): I25.10 - Atherosclerotic heart disease of [place] coronary artery without angina pectoris (5) Hyperlipidemia: Status: Chronic Code(s): E78.5 - Hyperlipidemia, unspecified Qualifiers: Hyperlipidemia type: unspecified Qualified Code(s): E78.5 - Hyperlipidemia, unspecified Medications at Discharge Home Medications nitroglycerin 0.4 mg sublingual tablet (Nitrostat) 0.4 mg sublingual Q5-15M PRN Chest Pain 04/06/17 balsalazide 750 mg capsule 2,250 mg PO TID stomach 07/11/19 pantoprazole 40 mg tablet,delayed release 40 mg PO DAILY stomach 01/26/20 acetaminophen 325 mg tablet (Tylenol) 650 mg PO Q6H PRN Breakthrough Pain, Mild 05/08/21 albuterol sulfate 90 mcg/actuation aerosol inhaler (Ventolin HFA) 2 puff inhalation Q4H PRN PRN Wheezing ##1 10/26/22 levocetirizine 5 mg tablet 5 mg PO QHS 01/18/23 atorvastatin 20 mg tablet 10 mg PO QHS cholesterol 03/24/23 apixaban 5 mg tablet (Eliquis) 2.5 mg PO BID blood thinner 10/28/23 budesonide 9 mg tablet,delayed and extended release 9 mg PO DAILY 02/28/24 vit C 250 mg-vit E 90 mg-zinc 40 mg-copper 1 [id number] capsule (PreserVision AREDS-2) 1 tab PO BID 02/28/24 amiodarone 200 mg tablet 200 mg PO TID #65 tabs 02/29/24 aspirin 81 mg chewable tablet 81 mg PO BREAKFAST #0 tabs 02/29/24 metoprolol tartrate 25 mg tablet 25 mg PO BID #60 tabs 02/29/24 Hospital Course Summary of Care Provided Hospital Course: Patient is an 83-year-old white male who presented to the emergency department at [facility] on 02/28/2024 with a chief complaint of chest discomfort that was located in his central chest and radiated to his arms and back. He called his sons when this occurred and they recommended him coming to the emergency department for evaluation. Patient did report that he was diagnosed with an upper respiratory infection a few days previously and went to an urgent care at which time he was placed on antibiotics as well as albuterol and he was found to be in A-fib on presentation. Patient thought the albuterol triggered his atrial fibrillation with RVR. Patient has known history of A-fib but typically is sinus rhythm. His last cardiac catheterization was in 2016 at which time he had PCI of the RCA. His LAD had a questionable lesion for which she underwent stress testing and this did not demonstrate any evidence of ischemia and his circumflex had no identifiable disease. At baseline he is on aspirin and Eliquis. He has had previous issues with A-fib with RVR and had successful cardioversion. EKG on presentation showed A-fib with RVR and ST depression in leads V4 through V6. He underwent 3 cardioversions in the emergency department however failed cardioversion and was placed on Cardizem drip. He was admitted to the telemetry floor and cardiology was consulted. Given his respiratory symptoms a respiratory viral panel was ordered and he was found to be rhinovirus positive. Given the results of his viral panel we will discontinue antibiotics and continue supportive care. Cardiology evaluated the patient took him to the [facility] on 02/28/2024 at which time he was found to have right dominant coronary vasculature with left main showing mild luminal L irregularities, medium sized LAD with mild calcification at 30 to 40%, mild diffuse disease in his circumflex and right coronary artery disease showing diffuse 30 to 40% disease. He was converted to beta-liang and amiodarone in the hopes to reduce his atrial fibrillation episodes. EF was preserved on his cath and no repeat echocardiogram was pursued at this time. He ultimately cardioverted with amiodarone. He is currently on amiodarone 200 mg 3 times daily which we will continue for 7 days then taper will initiate to 200 mg twice daily x 7 days then will continue daily. Eliquis is on hold due to his issues with GI bleeding. He does have follow-up appoint with Dr. Lewis and was instructed to continue his Eliquis until he is able to follow-up. Family did ask questions about Watchman procedure and I advised them to follow-up with cardiology and further discuss that at that time. In addition to the amiodarone, we also increased his metoprolol from 12.5 mg p.o. twice daily to 25 mg p.o. twice daily. As an outpatient, he had been placed on doxycycline for an upper respiratory infection. He was found to test positive here for rhinovirus as noted above and we did ask him to discontinue his doxycycline at discharge. He is to follow-up with his primary care physician within 1 week and that cardiology appointment will be set up for him prior to discharge within the next 2 to 4 weeks. New prescriptions were sent to his local pharmacy prior to discharge and plan of care was discussed with the patient and his family prior to discharge. He was discharged home in stable condition on 02/29/2024. Discharge diagnoses: Chest pain-resolved Nonobstructive CAD Atrial fibrillation with RVR Rhinovirus infection History of Crohn's disease Seasonal allergies GERD Anemia History of peptic ulcer disease History of DVT BPH without obstruction History of glaucoma Physical Exam Const alert, oriented x3, no apparent distress, average body habitus, no limitations and well nourished Constitutional Narrative: Elderly, white male, sitting up in a chair at the bedside, family at bedside, patient appears comfortable, nontoxic, intermittently joking and very pleasant General Appearance: cooperative, comfortable, well kempt and well developed Orientation / Consciousness: awake, oriented to person, oriented to place and oriented to time Exam Limitations: no limitations Nutritional Appearance: overweight HEENT normocephalic, head/scalp atraumatic and moist oral mucous membranes HEENT Narrative: Moderate hearing loss, Mallampati is 2, no thrush Eyes Eyes Narrative: No scleral icterus Neck no lymphadenopathy and supple Neck Narrative: Trachea midline, no thyroid enlargement Resp normal respiratory effort, no retractions, no use of accessory muscles and clear to auscultation bilaterally Auscultation: Negative for rales, rhonchi or wheezes Cardio regular rate, regular rhythm, S1 normal heart sound, S2 normal heart sound, no murmurs, no rub, no gallops and no clicks GI normal to inspection, nondistended, normoactive bowel sounds, soft to palpation and non-tender Extremity Extremity Narrative: Wounds bilateral lower extremities that are chronic and he does follow with podiatry and dermatology, trace bilateral lower extremity edema, no cyanosis, no clubbing Skin No no wounds, skin turgor normal and no jaundice Skin Narrative: Wounds on legs as noted above Neuro oriented x3, moves all extremities and no focal motor deficits Speech: speech normal Psych affect normal Psych Narrative: Very pleasant, jovial, interacts appropriately Weight / BMI Weight Weight: 67.3 kg Body Mass Index (BMI) 27.1 ABG / Lab / Microbiology Data 02/29/24 05:16 02/29/24 05:16 Laboratory: Laboratory Results - last 24 hr 02/29/24 05:16: WBC 4.9, RBC 3.70 L, Hgb 11.5 L, Hct 35.6 L, MCV 96.2 H, MCH 31.1, MCHC 32.3, RDW Std Deviation 53.5 H, RDW Coeff of Gaby 14.9 H, Plt Count 243, MPV 9.1, Immature Gran % (Auto) 0.800, Neut % (Auto) 45.0 L, Lymph % (Auto) 23.2, Tyrrell % (Auto) 24.6 H, Eos % (Auto) 6.0 H, Baso % (Auto) 0.4, Absolute Neuts (auto) 2.2, Absolute Lymphs (auto) 1.13, Nucleated RBC % 0, Sodium 139, Potassium 3.6, Chloride 108 H, Carbon Dioxide 26.0, Anion Gap 5, BUN 12, C reatinine 0.68 L, Estim Creat Clear Calc 56.99, Est GFR (MDRD) Af Amer 143, Est GFR (MDRD) Non-Af 118, BUN/Creatinine Ratio 17.7, Glucose 101, Calcium 7.9 L, Phosphorus 2.6, Magnesium 1.9, Total Bilirubin 1.10 H, AST 20, ALT 13 L, Alkaline Phosphatase 52, Total Protein 6.1 L, Albumin 2.8 L, Globulin 3.3, A lbumin/Globulin Ratio 0.8 L Microbiology: Microbiology 02/28/24 08:37 Mucosa - Nasopharyngeal Respiratory Panel (PCR) - Final Rhinovirus Radiography Diagnostic Testing: Radiology Impression Echocardiogram 02/28/24 06:52 Interpretation Summary Normal LV size. Left ventricular systolic function is normal. The left ventricular ejection fraction is 55 %. There is mild mitral annular calcification. Contrast injection was performed. Ordering Physician: Jaime Servin Referring Physician: Marcelo Mccullough Chi Performed By: Tank Kay RCS D/C Instructions Discharge Diet: Low fat / Low cholesterol Discharge Activity: Return to Normal Activity DC O2, CPAP, BIPAP Needs Additional Home O2 Discharge instructions: No DC home with Oxygen: No Meaningful Use Info Meaningful Use Meaningful Use Diagnoses (Choose all that apply): None applicable Ischemic Stroke Statin Dosing Therapy Reference: STATIN DOSE THERAPY REFERENCE: * Patients > 75 years receive moderate or high dose statin therapy. * Patients 75 years or YOUNGER should receive HIGH intensity statin dose unless contraindicated. You will be required to document reason for non-treatment if statin daily dose does not meet guidelines. HIGH DOSE STATIN THERAPY DAILY Atorvastatin > than or = to 40 mg Rosuvastatin > than or = to 20 mg Amlodipine + Atorvastatin > than or = to 2.5/40 mg Ezetimibe + Simvastatin 10/80 mg Simvastatin 80mg Discharge Plan Admission Admit Date/Time: 02/28/24 06:46 Primary Reason for Your Visit: Chest discomfort/palpitations Attending Provider: Mariana Rich Primary Care Provider: Marcelo Mccullough Chi Consulting Providers: Jaime Servin; Tyson Miller Instructions Additional Instructions / Restrictions: 1. Please note the change in your metoprolol from 12.5 mg twice daily to 25 mg daily. 2. Your amiodarone will be taken 200 mg 3 times a day for 1 week then 200 mg twice daily x 1 week and then continue at 200 mg daily 3. You were diagnosed with an rhinovirus which is a common respiratory virus. Okay to stop the doxycycline and not take this as this is a viral infection and not bacterial and the doxycycline will not be effective. Discharge Orders/Prescriptions Prescriptions: New amiodarone 200 mg Tablet 200 mg PO TID Qty: 65 0RF Rx Instructions: Take 200 mg 3 times daily x 7 days, then 200 mg twice daily x 7 days, then 200 mg daily aspirin 81 mg Tablet,Chewable 81 mg PO BREAKFAST Qty: 0 0RF metoprolol tartrate 25 mg Tablet 25 mg PO BID Qty: 60 1RF Continued nitroglycerin [Nitrostat] 0.4 mg tablet, sublingual 0.4 mg SUBLINGUAL Q5-15M PRN (Reason: Chest Pain) Patient Comments: pt. states he has never had to take it atorvastatin 20 mg tablet 10 mg PO QHS pantoprazole 40 mg tablet,delayed release (DR/EC) 40 mg PO DAILY acetaminophen [Tylenol] 325 mg tablet 650 mg PO Q6H PRN (Reason: Breakthrough Pain, Mild) balsalazide 750 mg capsule 2,250 mg PO TID Rx Instructions: 750 mg PO 9 capsules per day; albuterol sulfate [Ventolin HFA] 90 mcg/actuation HFA aerosol inhaler 2 puff inhalation Q4H PRN PRN (Reason: Wheezing) Qty: 1 0RF levocetirizine 5 mg tablet 5 mg PO QHS Patient Comments: TAKE 1 TABLET BY MOUTH EVERYDAY AT BEDTIME budesonide 9 mg tablet,delayed and ext.release 9 mg PO DAILY PreserVision AREDS-2 250-90-40-1 mg capsule 1 tab PO BID Held Eliquis 5 mg tablet 2.5 mg PO BID Hold Instructions: Until cleared to start again by Dr. Lewis Patient Comments: Patient took himself off last Wednesday due to bleeding. Discontinued doxycycline hyclate 100 mg capsule 100 mg PO BID 7 Days Qty: 14 0RF Patient Comments: per pt was prescribed, but hadn't started taking yet. metoprolol tartrate 25 mg tablet 12.5 mg PO BID Qty: 30 11RF Rx Instructions: Take 12.5mg (1/2 tab) twice daily Referrals / Follow Up: Marcelo Mccullough Chi, MD [Primary Care Provider] - Within 2 Weeks Disposition Disposition (needs filled in before D/C Order can be placed): Home, Self Care Charges/Coding Visit Charges Inpatient E&M: 41162 Disch Hosp >30min
--- NOTE | 2024-02-29 13:03 | PHA.DC_ITS ---
Pharmacy [facility] has performed discharge medication reconciliation and counseling for this patient. The patient's discharge medication list was reviewed for discrepancies and discrepancies were resolved. The patient was counseled on the following discharge medications and changes in medications for homegoing were reviewed. The Reason for Use, instructions for use, and potential side effects were reviewed for all new medications. The patient's questions regarding all of their medications were answered. 1. Aspirin 81 mg PO daily 2. Metoprolol tartrate 25 mg PO BID 3. Amiodarone 200 mg TID x 7 days, BID x 7 days then daily The patient was able to verbally demonstrate an understanding of their discharge medications. Medications at Discharge Home Medications nitroglycerin 0.4 mg sublingual tablet (Nitrostat) 0.4 mg sublingual Q5-15M PRN Chest Pain 04/06/17 balsalazide 750 mg capsule 2,250 mg PO TID stomach 07/11/19 pantoprazole 40 mg tablet,delayed release 40 mg PO DAILY stomach 01/26/20 acetaminophen 325 mg tablet (Tylenol) 650 mg PO Q6H PRN Breakthrough Pain, Mild 05/08/21 albuterol sulfate 90 mcg/actuation aerosol inhaler (Ventolin HFA) 2 puff inhalation Q4H PRN PRN Wheezing ##1 10/26/22 levocetirizine 5 mg tablet 5 mg PO QHS 01/18/23 atorvastatin 20 mg tablet 10 mg PO QHS cholesterol 03/24/23 apixaban 5 mg tablet (Eliquis) 2.5 mg PO BID blood thinner 10/28/23 budesonide 9 mg tablet,delayed and extended release 9 mg PO DAILY 02/28/24 vit C 250 mg-vit E 90 mg-zinc 40 mg-copper 1 [id number] capsule (PreserVision AREDS-2) 1 tab PO BID 02/28/24 amiodarone 200 mg tablet 200 mg PO TID #65 tabs 02/29/24 aspirin 81 mg chewable tablet 81 mg PO BREAKFAST #0 tabs 02/29/24 metoprolol tartrate 25 mg tablet 25 mg PO BID #60 tabs 02/29/24
== END 2024-02-29 12:33 | disposition home or self-care (01) ==
LOC: ED 06:08 → PCU 06:52
PROVIDERS: Admitting Provider Internal Medicine; Emergency Provider Emergency Medicine; PCP Family Medicine Geriatric Medicine; Visit Provider Internal Medicine
DX: I48.0 Paroxysmal atrial fibrillation (principal); K50.90 Crohn's disease, unspecified, without complications; I10 Essential (primary) hypertension; E78.5 Hyperlipidemia, unspecified; I25.10 Atherosclerotic heart disease of native coronary artery without angina pectoris; R06.02 Shortness of breath; Z79.01 Long term (current) use of anticoagulants; Z87.891 Personal history of nicotine dependence; Z79.82 Long term (current) use of aspirin; K21.9 Gastro-esophageal reflux disease without esophagitis; J06.9 Acute upper respiratory infection, unspecified; Z95.5 Presence of coronary angioplasty implant and graft; J30.2 Other seasonal allergic rhinitis; Z86.718 Personal history of other venous thrombosis and embolism; Z79.899 Other long term (current) drug therapy; I25.2 Old myocardial infarction; N40.0 Benign prostatic hyperplasia without lower urinary tract symptoms; T48.6X5A Adverse effect of antiasthmatics, initial encounter; B97.89 Other viral agents as the cause of diseases classified elsewhere
CPT/HCPCS: 36415; 71045; 80048; 80053; 83735; 84100; 84443; 84484; 85025; 85610; 85730; 87633; 92960; 93005; 93306; 93458; 96365; 96366; 96375; 96376; 97162; 97166; 97802; 99152; 99221; 99285; Q9957; Q9967; A4216; C1769; C1894; C8929; G0378

== ENCOUNTER → 2024-03-21 | Outpatient (CLI) | payer MEDICARE, SELFPAY ==
[2016-10-05 13:30] VITALS: BMI 26.1
[2024-03-21 10:28] LABS: Absolute Lymphocyte Count 1.42 X10^3/uL (0.83-4.51); Basophil# 0.02 X10^3/uL; Basophil% 0.3 % (0-1); Eosinophil# 0.21 X10^3/uL; Eosinophils% 3.7 % (0-5); Hematocrit 37.3 % (40-54); Hemoglobin 11.8 g/dL (13.0-16.5); Lymphocyte # 1.42 X10^3/ul (0.83-4.51); Lymphocyte % 24.8 % (19-41); Mean Corp Hgb Conc 31.6 g/dL (32-36); Mean Corpuscular Hgb 30.7 pg (27.0-32.0); Mean Corpuscular Volume 97.1 fL (80-94); Mean Platelet Vol. 8.6 fl (6.2-12.0); Monocyte# 1.05 X10^3/uL; Monocyte% 18.3 % (0-10); NRBC Flagged by Analyzer 0 % (0-5); Neutrophil # 3.02 X10^3/uL (2.7-7.7); Neutrophil % 52.7 % (47-70); POSITIVE MORPHOLOGY YES; Platelet Count 275 K/mm3 (150-450); RBC Distribution Width SD 53.2 fl (35.1-43.9); Red Blood Count 3.84 M/mm3 (4.6-6.2); White Blood Count 5.7 K/mm3 (4.4-11.0)
[2024-03-21 10:29] LABS: Differential Indicated SCAN CRITERIA MET
[2024-03-21 10:46] LABS: Differential Comment SCANNED
[2024-03-21 11:03] LABS: Vitamin D,25 Hydroxy 29.2 ng/mL
[2024-03-21 11:10] LABS: ALB/GLOB Ratio 0.8 RATIO (0.9-2.4); AST(SGOT) 12 U/L (15-37); Alanine Aminotransfer ALT/SGPT 11 U/L (16-61); Alkaline Phosphatase 48 U/L (45-117); Anion Gap 6 (5-15); BUN 13 mg/dL (7-18); BUN/Creat Ratio 15.1 RATIO (10-20); Calcium,Total 8.1 mg/dL (8.5-10.1); Chloride 106 mmol/L (98-107); Creatinine, Serum 0.86 mg/dL (0.70-1.30); EST Glomerular Filtration Rate 89 mL/min (>60); Est Glom Filt Rate - Afr Amer 108 mL/min (>60); Globulin 3.8 g/dL (2.2-4.2); Glucose 112 mg/dL (74-106); Potassium 3.6 mmol/L (3.5-5.1); Protein, Total 6.8 g/dL (6.4-8.2); Sodium Level 140 mmol/L (136-145)
== END | disposition home or self-care (01) ==
LOC: POLAB3 10:10
PROVIDERS: PCP Family Medicine Geriatric Medicine; Visit Provider Family Medicine Geriatric Medicine
DX: I10 Essential (primary) hypertension (principal); E55.9 Vitamin D deficiency, unspecified
CPT/HCPCS: 36415; 80053; 82306; 84443; 85025

== ENCOUNTER → 2024-05-03 | Outpatient (CLI) | payer MEDICARE, SELFPAY ==
[2016-10-05 13:30] VITALS: BMI 26.1
== END | disposition home or self-care (01) ==
PROVIDERS: PCP Family Medicine Geriatric Medicine; Referring Provider Family Medicine Geriatric Medicine; Visit Provider Family Medicine Geriatric Medicine
DX: E03.9 Hypothyroidism, unspecified (principal)
CPT/HCPCS: 36415; 84443

== ENCOUNTER → 2024-06-26 | Outpatient (CLI) | payer MEDICARE, SELFPAY ==
[2016-10-05 13:30] VITALS: BMI 26.1
--- NOTE | 2024-06-26 12:00 | VDLE_ITS ---
Reason For Study Reason For Study: BLE Swelling RIGHT LEFT GSV is normal. GSV is normal. CFV is compressible, spontaneous, phasic, competent Lt CFV - FV - Pop V - T/P Trunk all appear PARTIALLY and demonstrates normal augmentation. Vein Wall COMPRESSIBLE with hyperechoic web-like intraluminal thickening is noted. echoes. Finding is consistent with CHRONIC DVT. FV is compressible, spontaneous, phasic, competent PTV is compressible. and demonstrates normal augmentation. Vein Wall LT PerV is compressible. thickening is noted. POP V is compressible, spontaneous, phasic, competent and demonstrates normal augmentation. T/P Trunk is compressible. PTV is compressible. RT PerV is compressible. Gastrocnemius vein is PARTIALLY COMPRESSIBLE with hyperechoic web-like intraluminal echoes. Finding is consistent with CHRONIC DVT. Procedure This is a venous duplex using B-mode, color flow and spectral Doppler. Exam performed in department. The exam was diagnostic. A preliminary report was called and/or faxed to Dr. Mccullough's office. VL/Venous Duplex US - Raymond Extrem Interpretation Summary Chronic deep vein thrombosis noted in the right gastrocnemius vein. Chronic deep vein thrombosis noted in the left common femoral vein, femoral vei n, popliteal vein, tibioperoneal trunk vein. Ordering Physician: Marcelo Mccullough Chi Referring Physician: Marcelo Mccullough Chi Performed By: Doni Cardona, RVT
[2024-06-26 13:00] LABS: Absolute Lymphocyte Count 1.23 X10^3/uL (0.83-4.51); Absolute Neutrophil Count 2.1 X10^3/uL (2.0-7.7); Basophil# 0.05 X10^3/uL; Eosinophil# 0.42 X10^3/uL; Eosinophils% 8.8 % (0-5); Hematocrit 38.1 % (40-54); Hemoglobin 12.5 g/dL (13.0-16.5); Lymphocyte # 1.23 X10^3/ul (0.83-4.51); Lymphocyte % 25.6 % (19-41); Mean Corp Hgb Conc 32.8 g/dL (32-36); Mean Corpuscular Hgb 31.9 pg (27.0-32.0); Mean Corpuscular Volume 97.2 fL (80-94); Mean Platelet Vol. 8.7 fl (6.2-12.0); Monocyte# 0.95 X10^3/uL; Monocyte% 19.8 % (0-10); NRBC Flagged by Analyzer 0 % (0-5); Neutrophil # 2.14 X10^3/uL (2.7-7.7); Neutrophil % 44.6 % (47-70); Platelet Count 253 K/mm3 (150-450); RBC Distribution Width CV 14.6 % (11.6-14.6); RBC Distribution Width SD 52.4 fl (35.1-43.9); Red Blood Count 3.92 M/mm3 (4.6-6.2); White Blood Count 4.8 K/mm3 (4.4-11.0)
== END | disposition home or self-care (01) ==
PROVIDERS: PCP Family Medicine Geriatric Medicine; Referring Provider Family Medicine Geriatric Medicine; Visit Provider Family Medicine Geriatric Medicine
DX: R22.43 Localized swelling, mass and lump, lower limb, bilateral (principal); E78.5 Hyperlipidemia, unspecified
CPT/HCPCS: 36415; 85025; 93970

== ENCOUNTER 2024-07-06 14:02 | Emergency (ER) | payer MEDICARE, SELFPAY ==
[2016-10-05 13:30] VITALS: BMI 26.1
[2024-07-06 14:06] VITALS: BP 122/71; PULSE 67; RESP 18; TEMP 36.8; O2SAT 94
--- NOTE | 2024-07-06 14:29 | EKG12_ITS ---
Test Reason : Blood Pressure : */* mmHG Vent. Rate : 65 BPM Atrial Rate : 65 BPM P-R Int : 168 ms QRS Dur : 92 ms QT Int : 440 ms P-R-T Axes : 60 -11 48 degrees QTcB Int : 457 ms Normal sinus rhythm Normal ECG Confirmed by Beni Smith ([id number]), photo editor NEERAJ MEJIAS ([id number]) on 07/07/2024 12:44:11 PM Referred By: Amado Anderson Confirmed By: Beni Smith
--- NOTE | 2024-07-06 14:30 | EX.ED.DYSGE1 ---
HPI History of Present Illness Chief Complaint: General Illness Narrative Narrative: 84-year-old male past medical history of atrial fibrillation, chronic leg swelling with transudate from the left lower extremity presents with his daughter because of generalized weakness and shortness of breath along with the leg swelling. They relate history that approximately 11 days ago he began having bilateral leg swelling. They saw their primary care provider, Dr. Mccullough, who ordered ultrasounds and there is no evidence of blood clots. Daughter states that his bilateral legs continue to swell. They were seen by the [facility] and outpatient testing for heart failure were ordered, but they stated that if the patient became worse that he should come to the ED. Patient has had a generalized weakness but denies any fevers or chills. He has a chronic cough. His daughter states that he seemed very short of breath this morning. He denies any chest pain, no recent nausea or vomiting. He states he has been eating well but does not drink a large amount of fluids. They present to the emergency department mainly because of his generalized weakness and bilateral leg swelling. [facility] Medical History History of DVT (deep vein thrombosis) Atherosclerosis of coronary artery of [place] heart without angina pectoris Overweight (BMI 25.0-29.9) Hypertension Coronary artery disease A-fib Paroxysmal atrial fibrillation Anemia New onset a-fib Heartburn Bronchitis PUD (peptic ulcer disease) Deep vein thrombosis of left lower extremity (2012) Essential (primary) hypertension DDD (degenerative disc disease) Non-ST elevation (NSTEMI) myocardial infarction (10/03/16) PND (post-nasal drip) Multiple allergies Cough Prostate enlargement Stomach ulcer GERD (gastroesophageal reflux disease) Glaucoma Skin cancer Unstable angina Hyperlipidemia Crohn disease Home Medications ?Medication ?Instructions ?Recorded ?Last Taken ?Type nitroglycerin 0.4 mg sublingual 0.4 mg sublingual Q5-15M PRN Chest 04/06/17 Unknown History tablet (Nitrostat) Pain pantoprazole 40 mg tablet,delayed 40 mg PO DAILY stomach 01/26/20 02/20/22 09:00 History release acetaminophen 325 mg tablet 650 mg PO Q6H PRN Breakthrough 05/08/21 02/27/24 History (Tylenol) Pain, Mild levocetirizine 5 mg tablet 5 mg PO QHS 01/18/23 Unknown History apixaban 5 mg tablet (Eliquis) 2.5 mg PO BID blood thinner 10/28/23 02/23/24 History Held on 02/29/24. Instructions: Until cleared to start again by Dr. Lewis vit C 250 mg-vit E 90 mg-zinc 40 1 tab PO BID 02/28/24 Unknown History mg-copper 1 [id number] capsule (PreserVision AREDS-2) aspirin 81 mg chewable tablet 81 mg PO BREAKFAST #0 tabs 02/29/24 Unknown Rx ferrous sulfate 324 mg (65 mg 324 mg PO QDAY 03/17/24 Unknown History iron) tablet,delayed release amiodarone 200 mg tablet 100 mg (1/2 x 200 mg) PO QDAY #90 04/10/24 Unknown Rx tabs metoprolol tartrate 25 mg tablet 25 mg PO BID #180 tabs 04/11/24 Unknown Rx Held on 05/15/24. Instructions: Fatigue/Weakness 05/15/2024 atorvastatin 20 mg tablet 20 mg PO QHS cholesterol 05/15/24 Unknown History balsalazide 750 mg capsule 2,250 mg PO TID stomach 05/15/24 Unknown History calcium carbonate (Tums) 200 mg PO BID 05/15/24 Unknown History guaifenesin 100 mg/5 mL oral liquid 200 mg PO Q4H PRN 05/15/24 Unknown History levothyroxine 25 mcg tablet 25 mcg PO QDAY 05/15/24 Unknown History mesalamine 1,000 mg rectal 1,000 mg IN Q OTHER DAY 05/15/24 Unknown History suppository polyethylene glycol 3350 17 17 g PO QDAY PRN 05/15/24 Unknown History gram/dose oral powder (Miralax) cephalexin 500 mg capsule 500 mg PO Q12 #14 CAPSULES 07/06/24 Unknown Rx Allergy/AdvReac Type Severity Reaction Status Date / Time albuterol Allergy Severe Chest Verified 07/06/24 14:06 tightness/afib rvr digoxin Allergy Intermediate Dizziness, Verified 07/06/24 14:06 headache, fuzzy thoughts ragweed pollen AdvReac Intermediate Nasal Verified 07/06/24 14:06 congestion Family History Father Heart disease Mother CVA (cerebral vascular accident) Surgical History History of dental surgery (04/15/21) History of coronary artery stent placement (10/05/16) Previous back surgery H/O colonoscopy Social History household members: spouse current occupation: 50 years ago Smoking Status: Former smoker second hand exposure: No alcohol intake: never substance use type: does not use ROS ROS ED ROS Narrative Constitutional: No fever, no chills. Positive generalized weakness and malaise. Cardiovascular: No chest pain. No palpitations. Positive bilateral pedal edema. 3 years of transudate from left lower extremity Respiratory: Chronic cough, today had shortness of breath. Abdominal: No abdominal pain. No nausea. No vomiting. No diarrhea. Genitourinary: No dysuria. No hematuria. Musculoskeletal: No myalgias. No arthralgias. EXAM Physical Exam Narrative Exam Narrative: Afebrile. Vital signs noted. Nontoxic-appearing. Cardiovascular examination reveals a regular rate and rhythm. Lungs are clear to auscultation bilaterally. Moving a good amount of air. Abdomen is soft, nontender, with positive bowel sounds. No guarding or rebound. Neurological examination nonfocal, nonlateralizing. There is bilateral pedal edema that appears chronic with dried transudate on stockinette of left lower extremity. Appears neurovascularly intact bilaterally without cyanosis, or crepitance of bilateral lower extremities. Const Vital Signs: 07/06/24 14:06 07/06/24 14:57 07/06/24 16:30 Temperature 98.2 F Temperature Source Oral Pulse Rate 67 65 Respiratory Rate 18 16 Respiratory Effort Short of Breath Respiratory Pattern Normal Blood Pressure 122/71 H 145/77 H Blood Pressure Mean 88 97 Pulse Ox 94 MDM MDM MDM Narrative Medical decision making narrative: Differential diagnosis includes but not limited to dehydration versus other electrolyte imbalance versus CHF that has been undiagnosed versus pneumonia. Comprehensive workup was pursued. EKG was obtained and interpreted by myself independently as normal sinus rhythm at 65 bpm without ectopy or acute ST changes. No STEMI. I reviewed his laboratory work and WBC count normal at 5.0 with hemoglobin stable at 12.4, hematocrit 36.9. Platelet count normal at 262. Electrolyte panel is grossly unremarkable with normal sodium and normal potassium. Glucose 102 with a normal anion gap of 9. proBNP 358 and given his age, heart failure unlikely as it is below the cutoff of 1800. Chest x-ray in 1 view interpreted by myself independently shows no significant consolidation, chronic changes with no significant change from previous. I reviewed the radiology report which confirms my independent interpretation and comments on atelectasis in the right base. I reviewed his urinalysis and it is slightly cloudy with 10-25 WBCs but greater than 100 RBCs. This was sent for culture. I will start him on cephalexin. At this point in time, I do not feel he requires admission. I feel he can be followed up with his primary care provider and I wrote him a prescription for cephalexin to take twice a day for the next week regarding his UTI. Disposition is discharged home in stable condition. History & Record Review Discussion w/independent historian: Patient and Family (Daughter) Additional record(s) reviewed:: Prior labs Lab Data Attestation: I reviewed the patient's lab results. Labs: Laboratory Results - last 24 hr 07/06/24 07/06/24 14:15 16:19 WBC 5.0 RBC 3.81 L Hgb 12.4 L Hct 36.9 L MCV 96.9 H MCH 32.5 H MCHC 33.6 RDW Std Deviation 52.6 H RDW Coeff of Gaby 14.9 H Plt Count 262 MPV 9.3 Immature Gran % (Auto) 1.000 H Neut % (Auto) 43.7 L Lymph % (Auto) 23.2 [place] % (Auto) 23.6 H Eos % (Auto) 7.9 H Baso % (Auto) 0.6 Absolute Neuts (auto) 2.2 Absolute Lymphs (auto) 1.15 Nucleated RBC % 0 Sodium 140 Potassium 3.9 Chloride 106 Carbon Dioxide 24.9 Anion Gap 9 BUN 13 Creatinine 0.88 Est GFR (MDRD) Non-Af 84 BUN/Creatinine Ratio 14.6 Glucose 102 H Calcium 8.6 Total Bilirubin 0.80 AST 26 ALT 10 Alkaline Phosphatase 70 NT pro BNP II 358 Total Protein 6.6 Albumin 3.8 Globulin 2.9 Albumin/Globulin Ratio 1.3 Urine Color Yellow Urine Clarity Sl. Cloudy Urine pH 6.5 Ur Specific [place] 1.020 Urine Protein TNP Urine Glucose (UA) Normal Urine Ketones Negative Urine Occult Blood 250 H Urine Nitrite Negative Urine Bilirubin Negative Urine Urobilinogen 1 H Ur Leukocyte Esterase 500 H Urine RBC > 100 SEEN Urine WBC 10-25 SEEN Ur Squamous Epith Cells 0 SEEN Urine Bacteria 0 SEEN Urine Mucus 0 SEEN Urine Collection Time Cancelled Timed Urine Volume Cancelled Ur Total Protein 24 Hr Cancelled Urine Total Protein Cancelled Radiography Chest X-Ray - ED: 1 View, Read by ED Physician and Read by Radiologist Diagnostic Testing: Clinical Impression(s) from Imaging Studies Chest X-Ray 07/06/24 15:15 IMPRESSION: Right lung base atelectasis. Reading Location: [facility] Discharge Plan Triage Chief Complaint: General Illness ED Provider: Amado Anderson Dx/Rx/DC Orders Clinical Impression: Generalized weakness, SOB (shortness of breath), UTI (urinary tract infection) Instructions: ED Dyspnea, ED Bladder Infection, Male (Adult), ED Weakness Uncertain Cause Prescriptions: New cephalexin 500 mg capsule 500 mg PO Q12 Qty: 14 0RF No Action nitroglycerin [Nitrostat] 0.4 mg tablet, sublingual 0.4 mg SUBLINGUAL Q5-15M PRN (Reason: Chest Pain) Patient Comments: pt. states he has never had to take it atorvastatin 20 mg tablet 20 mg PO QHS pantoprazole 40 mg tablet,delayed release (DR/EC) 40 mg PO DAILY acetaminophen [Tylenol] 325 mg tablet 650 mg PO Q6H PRN (Reason: Breakthrough Pain, Mild) ferrous sulfate 324 mg (65 mg iron) tablet,delayed release (DR/EC) 324 mg PO QDAY mesalamine 1,000 mg suppository 1,000 mg IN Q OTHER DAY levothyroxine 25 mcg tablet 25 mcg PO QDAY polyethylene glycol 3350 [Miralax] 17 gram/dose powder 17 g PO QDAY PRN calcium carbonate [Tums] 200 mg calcium (500 mg) tablet,chewable 200 mg PO BID guaifenesin 100 mg/5 mL liquid 200 mg PO Q4H PRN balsalazide 750 mg capsule 2,250 mg PO TID levocetirizine 5 mg tablet 5 mg PO QHS Patient Comments: TAKE 1 TABLET BY MOUTH EVERYDAY AT BEDTIME PreserVision AREDS-2 250-90-40-1 mg capsule 1 tab PO BID aspirin 81 mg Tablet,Chewable 81 mg PO BREAKFAST Qty: 0 0RF Eliquis 5 mg tablet 2.5 mg PO BID Patient Comments: Patient took himself off last Wednesday due to bleeding. amiodarone 200 mg tablet 100 mg PO QDAY Qty: 90 3RF metoprolol tartrate 25 mg tablet 25 mg PO BID Qty: 180 3RF Primary Care Provider: Marcelo Mccullough Chi Referrals: Marceol Mccullough Chi, MD [Primary Care Provider] - 3-5 Days if not improving Activity Restrictions/Additional Instructions: Antibiotics as directed. Follow-up with your primary care provider. Return with increased shortness of breath, new or worsening symptoms. Print Language: Zimbabwean Disposition Disposition: Home, Self Care
[2024-07-06 15:02] LABS: Absolute Lymphocyte Count 1.15 X10^3/uL (0.83-4.51); Absolute Neutrophil Count 2.2 X10^3/uL (2.0-7.7); Basophil# 0.03 X10^3/uL; Basophil% 0.6 % (0-1); Eosinophil# 0.39 X10^3/uL; Eosinophils% 7.9 % (0-5); Hematocrit 36.9 % (40-54); Hemoglobin 12.4 g/dL (13.0-16.5); Lymphocyte # 1.15 X10^3/ul (0.83-4.51); Lymphocyte % 23.2 % (19-41); Mean Corp Hgb Conc 33.6 g/dL (32-36); Mean Corpuscular Hgb 32.5 pg (27.0-32.0); Mean Corpuscular Volume 96.9 fL (80-94); Mean Platelet Vol. 9.3 fl (6.2-12.0); Monocyte# 1.17 X10^3/uL; Monocyte% 23.6 % (0-10); NRBC Flagged by Analyzer 0 % (0-5); Neutrophil # 2.16 X10^3/uL (2.7-7.7); Neutrophil % 43.7 % (47-70); Platelet Count 262 K/mm3 (150-450); RBC Distribution Width CV 14.9 % (11.6-14.6); RBC Distribution Width SD 52.6 fl (35.1-43.9); Red Blood Count 3.81 M/mm3 (4.6-6.2)
--- NOTE | 2024-07-06 15:15 | RAD_ITS ---
PROCEDURE: CHEST 1 VIEW (PORTABLE) 07/06/2024 REASON FOR EXAM: SHORTNESS OF BREATH TECHNIQUE: Frontal view of the chest. COMPARISON: None FINDINGS: Heart: The heart size is normal. Lungs: Right lung base atelectasis. No focal consolidation or large pleural effusion. RAD/Chest 1 View (Portable) IMPRESSION: Right lung base atelectasis. Reading Location: [facility]
[2024-07-06 15:38] LABS: ALB/GLOB Ratio 1.3 RATIO (0.9-2.4); AST(SGOT) 26 U/L (<=37); Alanine Aminotransfer ALT/SGPT 10 U/L (<=46); Albumin, Serum 3.8 g/dL (3.4-4.8); Alkaline Phosphatase 70 U/L (40-129); Anion Gap 9 (5-15); BUN 13 mg/dL (4-19); BUN/Creat Ratio 14.6 RATIO (10-20); Calcium,Total 8.6 mg/dL (7.6-11.0); Carbon Dioxide 24.9 mmol/L (21.0-32.0); Chloride 106 mmol/L (98-108); Creatinine, Serum 0.88 mg/dL (0.70-1.20); EST Glomerular Filtration Rate 84 (>60); Globulin 2.9 g/dL (2.2-4.2); Glucose 102 mg/dL (70-99); Potassium 3.9 mmol/L (3.3-5.1); Pro- Brain NATRIURETIC PEPTIDE 358 pg/mL (<=1800); Protein, Total 6.6 g/dL (5.9-8.4); Sodium Level 140 mmol/L (133-145)
[2024-07-06 16:30] VITALS: BP 145/77; PULSE 65; RESP 16
[2024-07-06 16:31] LABS: Bacteria 0 SEEN /hpf (None Seen); Mucous, Urine 0 SEEN /hpf (<or=2+); Squamous Epithelial Cells - UA 0 SEEN /hpf (0-5)
[2024-07-06 16:32] LABS: Color, Urine Yellow (Yellow); Glucose, Dipstick Normal (Normal); Ketone-Dipstick Negative (Negative); Leukocyte Esterase-Dipstick 500 /ul (Negative); Nitrite-Dipstick Negative (Negative); Occult Blood-Urine 250 /ul (Negative); Urine Bilirubin Dipstick Negative (Negative); Urine Clarity Sl. Cloudy (Clear); Urine Urobilinogen 1 mg/dl (Normal); Urine pH 6.5 (5.0 - 8.0)
[2024-07-06 16:38] LABS: Red Blood Cells-Urine > 100 SEEN /hpf (0-5); White Blood Cells 10-25 SEEN /hpf (0-5)
[2024-07-06] MEDS: Cephalexin 250 MG Capsule 500 MG PO (17:01)
[2024-07-06 17:03] VITALS: BP 155/98; PULSE 88; RESP 18; TEMP 36.9; O2SAT 97
== END 2024-07-06 17:04 | disposition home or self-care (01) ==
PROVIDERS: Emergency Provider Emergency Medicine; PCP Family Medicine Geriatric Medicine; Referring Provider Emergency Medicine; Visit Provider Emergency Medicine
DX: N39.0 Urinary tract infection, site not specified (principal); Z87.891 Personal history of nicotine dependence; I10 Essential (primary) hypertension; I25.10 Atherosclerotic heart disease of native coronary artery without angina pectoris; E78.5 Hyperlipidemia, unspecified; R06.02 Shortness of breath; R53.1 Weakness; Z95.5 Presence of coronary angioplasty implant and graft; K21.9 Gastro-esophageal reflux disease without esophagitis; I25.2 Old myocardial infarction; Z86.718 Personal history of other venous thrombosis and embolism
CPT/HCPCS: 71045; 80053; 81001; 83880; 85025; 87086; 87088; 93005; 99284; A4216

== ENCOUNTER → 2024-08-03 | Outpatient (CLI) | payer MEDICARE, SELFPAY ==
[2016-10-05 13:30] VITALS: BMI 26.1
--- NOTE | 2024-08-03 10:31 | RAD_ITS ---
PROCEDURE: CHEST PA AND LATERAL 08/03/2024 REASON FOR EXAM: WHEEZING TECHNIQUE: Frontal and lateral views of the chest. COMPARISON: 07/06/2024 FINDINGS: The lungs appear clear. Hyperinflation again noted. Mild atelectasis or scarring at the bases appears unchanged. No pleural effusion. Pulmonary vascularity appears within limits. The cardiac and mediastinal contours appear within limits. RAD/Chest PA and Lateral IMPRESSION: No evidence of acute disease. Reading Location: [id number]
== END | disposition home or self-care (01) ==
PROVIDERS: PCP Family Medicine Geriatric Medicine; Referring Provider Family Medicine Geriatric Medicine; Visit Provider Family Medicine Geriatric Medicine
DX: R06.2 Wheezing (principal); R05.9 Cough, unspecified; R68.83 Chills (without fever)
CPT/HCPCS: 71046; 87631

== ENCOUNTER → 2024-08-31 | Outpatient (CLI) | payer MEDICARE, SELFPAY ==
[2016-10-05 13:30] VITALS: BMI 26.1
--- NOTE | 2024-08-31 15:50 | CT_ITS ---
PROCEDURE: CHEST WITH CONTRAST 08/31/2024 REASON FOR EXAM: COUGH TECHNIQUE: Prone and supine chest CT with intravenous contrast, high resolution CT (HRCT) protocol. Coronal and Sagittal reconstruction series were provided. CONTRAST: Isovue-300 VOLUME: 100 mL One or more dose reduction techniques were used (e.g., Automated exposure control, adjustment of the mA and/or kV according to patient size, use of iterative reconstruction technique). RADIATION DOSE SUMMARY: CTDlvol: 10.35 mGy DLP: 272.46 mGycm COMPARISON: Prior chest radiograph dated August 04, 2024. FINDINGS: Hardware: None Lymph nodes: No suspicious lymph nodes are seen. Heart and Vasculature: Normal heart size. No pericardial effusion. Atherosclerotic calcifications of the thoracic aorta. Pulmonary arteries are unremarkable. Coronary artery calcification. Lungs and Airways: Scarring at the lung bases as well as a minimal scarring and volume loss in the lingular segment of the left upper lobe. Pleura: No pleural effusion Upper Abdomen: Unremarkable Bones: Degenerative changes of the thoracic spine. CT/Chest WITH Contrast IMPRESSION: Coronary artery calcification (CAC) is is present Hyperinflation with bibasilar scarring as well as scarring in the lingula segme nt of the left upper Reading Location: [facility]
== END | disposition home or self-care (01) ==
LOC: CT 15:38
PROVIDERS: PCP Family Medicine Geriatric Medicine; Referring Provider Family Medicine Geriatric Medicine; Visit Provider Family Medicine Geriatric Medicine
DX: R05.9 Cough, unspecified (principal)
CPT/HCPCS: 71260; Q9967; A4216

== ENCOUNTER → 2024-09-05 | Outpatient (CLI) | payer MEDICARE, SELFPAY ==
[2016-10-05 13:30] VITALS: BMI 26.1
[2024-09-05 14:54] LABS: Hematocrit 38.7 % (40-54); Hemoglobin 12.7 g/dL (13.0-16.5); Mean Corp Hgb Conc 32.8 g/dL (32-36); Mean Corpuscular Hgb 32.1 pg (27.0-32.0); Mean Corpuscular Volume 97.7 fL (80-94); Mean Platelet Vol. 8.9 fl (6.2-12.0); POSITIVE COUNT YES; POSITIVE MORPHOLOGY YES; Platelet Count 279 K/mm3 (150-450); RBC Distribution Width SD 54.4 fl (35.1-43.9); Red Blood Count 3.96 M/mm3 (4.6-6.2); White Blood Count 8.1 K/mm3 (4.4-11.0)
[2024-09-05 15:27] LABS: Differential Indicated MANUAL DIFF
[2024-09-05 17:16] LABS: CPK Total, Creatine Kinase 56 U/L (24-195); Troponin T High Sensitivity 20 ng/L (<=22); Vitamin D,25 Hydroxy 20.4 ng/mL (30-100)
[2024-09-05 17:19] LABS: ALB/GLOB Ratio 1.2 RATIO (0.9-2.4); AST(SGOT) 14 U/L (<=37); Alanine Aminotransfer ALT/SGPT < 5 U/L (<=46); Albumin, Serum 3.7 g/dL (3.4-4.8); Alkaline Phosphatase 58 U/L (40-129); Anion Gap 10 (5-15); BUN 16 mg/dL (4-19); BUN/Creat Ratio 14.4 RATIO (10-20); Calcium,Total 8.8 mg/dL (7.6-11.0); Carbon Dioxide 25.6 mmol/L (21.0-32.0); Chloride 104 mmol/L (98-108); EST Glomerular Filtration Rate 65 (>60); Globulin 3.1 g/dL (2.2-4.2); Glucose 152 mg/dL (70-99); Potassium 3.7 mmol/L (3.3-5.1); Protein, Total 6.8 g/dL (5.9-8.4); Sodium Level 139 mmol/L (133-145); Total Bilirubin 1.37 mg/dL (0.00-1.30)
[2024-09-06 00:15] LABS: Eosinophil 1 % (0-5); Lymphocyte 9 % (19-41); Monocyte 15 % (0-10); Neutrophil-Band 3 % (0-5); Neutrophil-Segmented 72 % (47-70); Total Cells Counted 100 (MANUAL DIFF)
[2024-09-06 00:17] LABS: Absolute Lymphocyte Count 0.73 X10^3/uL (0.83-4.51); Absolute Neutrophil Count 6.1 X10^3/uL (2.0-7.7); Pathologist Review May foll
[2024-09-07 04:07] LABS: Myoglobin, Serum 45 ng/mL (28-72)
== END | disposition home or self-care (01) ==
LOC: LAB 14:04
PROVIDERS: PCP Family Medicine Geriatric Medicine; Referring Provider Family Medicine Geriatric Medicine; Visit Provider Family Medicine Geriatric Medicine
DX: R07.9 Chest pain, unspecified (principal); I10 Essential (primary) hypertension; E55.9 Vitamin D deficiency, unspecified
CPT/HCPCS: 36415; 80053; 82306; 82550; 83874; 84443; 84484; 85025

== ENCOUNTER → 2024-09-08 | Outpatient (CLI) | payer MEDICARE, SELFPAY ==
[2016-10-05 13:30] VITALS: BMI 26.1
== END | disposition home or self-care (01) ==
LOC: LABSPEC 12:59
PROVIDERS: PCP Family Medicine Geriatric Medicine; Referring Provider Family Medicine Geriatric Medicine; Visit Provider Family Medicine Geriatric Medicine
DX: R50.9 Fever, unspecified (principal)
CPT/HCPCS: 87631

== ENCOUNTER → 2024-10-18 | Outpatient (CLI) | payer MEDICARE, SELFPAY ==
[2016-10-05 13:30] VITALS: BMI 26.1
--- NOTE | 2024-10-18 12:22 | RAD_ITS ---
PROCEDURE: FOREARM 2 VIEWS 10/18/2024 REASON FOR EXAM: LEFT ELBOW PAIN LET ARM PAIN OLECRANON BURSITIS, LEFT ELBOW TECHNIQUE: FOREARM 2 VIEWS COMPARISON: None FINDINGS: Bones: No fracture or subluxation. 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 Soft tissues: Tiny joint effusion. 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 Tiny joint effusion. No evidence of fracture or dislocation Reading Location: [id number]
--- NOTE | 2024-10-18 12:22 | RAD_ITS ---
PROCEDURE: ELBOW MIN 3 VIEWS 10/18/2024 REASON FOR EXAM: OLECRANON BURSITIS, LEFT ELBOW LEFT ARM PAIN TECHNIQUE: ELBOW MIN 3 VIEWS COMPARISON: None FINDINGS: Bones: No fracture or dislocation. 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 There is evidence of a nondisplaced radial neck fracture. Age of which can not be determined at this time. Soft tissues: Small joint effusion. 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 Small joint effusion. Reading Location: [facility]
== END | disposition home or self-care (01) ==
LOC: RAD 12:18
PROVIDERS: PCP Family Medicine Geriatric Medicine; Referring Provider Family Medicine Geriatric Medicine; Visit Provider Family Medicine Geriatric Medicine
DX: M70.22 Olecranon bursitis, left elbow (principal); M25.522 Pain in left elbow; M79.602 Pain in left arm
CPT/HCPCS: 73080; 73090

== ENCOUNTER 2025-02-17 07:32 | Emergency (ER) | payer MEDICARE, SELFPAY ==
[2016-10-05 13:30] VITALS: BMI 26.1
[2025-02-17 07:33] VITALS: BP 141/127; PULSE 84; RESP 18; TEMP 36.8; O2SAT 97; BMI 26.9
--- NOTE | 2025-02-17 07:48 | EDS_ITS ---
HPI History of Present Illness Chief Complaint: Other, Pain/Inj Narrative Narrative: 84-year-old male past medical history of hypertension, atrial fibrillation on half dose of Eliquis secondary to age presents with left-sided neck pain that began yesterday evening. He denies any recent trauma, no fevers or chills, no headache. He does relay history that he has had tinnitus on and off for years. His ringing in his ear acted up last evening. He presents with his son-in-law because he has pain at the base of his left neck and into his left trapezius area. Every time he moves his head or when they went over bumps in the road on the way here, he gets sharp pain. He has not taken anything for analgesia as of yet. [facility] Medical History History of DVT (deep vein thrombosis) Atherosclerosis of coronary artery of [place] heart without angina pectoris Overweight (BMI 25.0-29.9) Hypertension Coronary artery disease A-fib Paroxysmal atrial fibrillation Anemia New onset a-fib Heartburn Bronchitis PUD (peptic ulcer disease) Deep vein thrombosis of left lower extremity (2012) Essential (primary) hypertension DDD (degenerative disc disease) Non-ST elevation (NSTEMI) myocardial infarction (10/03/16) PND (post-nasal drip) Multiple allergies Cough Prostate enlargement Stomach ulcer GERD (gastroesophageal reflux disease) Glaucoma Skin cancer Unstable angina Hyperlipidemia Crohn disease Home Medications ?Medication ?Instructions ?Recorded ?Last Taken ?Type pantoprazole 40 mg tablet,delayed 40 mg PO DAILY stoma ch 01/26/20 02/20/22 09:00 History release acetaminophen 325 mg tablet 650 mg PO Q6H PRN Breakthr ough 05/08/21 02/27/24 History (Tylenol) Pain, Mild levocetirizine 5 mg tablet 5 mg PO QHS 01/18/23 Unknow n History ferrous sulfate 324 mg (65 mg 324 mg PO QDAY 03/17/24 Unknown History iron) tablet,delayed release amiodarone 200 mg tablet 100 mg (1/2 x 200 mg) PO QDA Y #90 04/10/24 Unknown Rx tabs atorvastatin 20 mg tablet 20 mg PO QHS cholesterol Unknown History balsalazide 750 mg capsule 2,250 mg PO TID stomach Unknown History levothyroxine 25 mcg tablet 25 mcg PO QDAY 05/15/24 Un known History mesalamine 1,000 mg rectal 1,000 mg AK Q OTHER DAY Unknown History suppository polyethylene glycol 3350 17 17 g PO QDAY PRN 05/15/24 Unknown History gram/dose oral powder (Miralax) ipratropium bromide 21 mcg (0.03 2 spray intranasal BI D-TID PRN 07/20/24 Unknown Rx %) nasal spray postnasal drainage #30 mL apixaban 2.5 mg tablet (Eliquis) 2.5 mg PO BID #180 ta bs 08/03/24 Unknown Rx Allergy/AdvReac Type Severity Reaction Status Date / Time albuterol Allergy Severe Chest Verified 02/17/25 07:37 tightness/afib rvr digoxin Allergy Intermediate Dizziness, Verified 02/17/25 07:37 headache, fuzzy thoughts ragweed pollen AdvReac Intermediate Nasal Verified 02/17/25 07:37 congestion Family History Father Heart disease Mother CVA (cerebral vascular accident) Surgical History History of dental surgery (04/15/21) History of coronary artery stent placement (10/05/16) Previous back surgery H/O colonoscopy Social History household members: spouse current occupation: 50 years ago Smoking Status: Former smoker second hand exposure: No alcohol intake: never substance use type: does not use ROS ROS ED ROS Narrative Review of systems positive for left-sided neck pain. No fevers or chills. Worse with movement of head and somewhat with movement of left arm. No headache. No recent trauma. EXAM Physical Exam Narrative Exam Narrative: Afebrile. Vital signs noted. Nontoxic-appearing. Cardiovascular examination reveals a regular rate, lungs clear to auscultation bilaterally. Neurovascular intact to left upper extremity distally. No vertebral point tenderness or bony step-off of cervical spine. Range of motion of head limited secondary to pain. Positive tenderness palpation along left trapezius. No crepitance. Palpable radial pulse, left. Const Vital Signs: 02/17/25 07:33 Temperature 98.2 F Temperature Source Oral Pulse Rate 84 Respiratory Rate 18 Blood Pressure 141/127 H Blood Pressure Mean 131 Pulse Ox 97 Oxygen Delivery Method Room Air MDM MDM MDM Narrative Medical decision making narrative: Differential diagnosis includes but not limited to musculoskeletal trapezius strain versus cervical radicular pain versus cervical vertebral compression fracture. I have low suspicion for vertebral artery dissection or clot. His pain is reproducible right along the left trapezius more at the base of the neck. I discussed analgesia with the patient and his son-in-law. He will be given [address] [place] [address] of the cervical spine will be obtained to help rule out fracture. I reviewed the radiology report of the CT which shows no acute fracture or dislocation but there is multilevel cervical spondylosis. I do feel that as his pain is reproducible that it is more likely musculoskeletal versus cervical radiculopathy. I discussed with both the patient and his son-in-law about home use of narcotic pain medication. They were offered a short prescription of [place], but declined. I also suggested tramadol for breakthrough pain but they declined this as well. Patient states that Tylenol has always helped him in the past. He will take [id number] Tylenol as needed for pain. I feel he can be discharged to follow-up with his primary care provider. Return instructions to the emergency department were reviewed. Disposition is discharged home in stable condition. History & Record Review Discussion w/independent historian: Patient and Family (Son-in-law) Additional record(s) reviewed:: Prior ED visit (Seen for weakness by myself in June of this year.) Radiography Diagnostic Testing: Clinical Impression(s) from Imaging Studies Cervical Spine CT 02/17/25 07:48 IMPRESSION: 1. No acute fracture or dislocation in the cervical spine. 2. Multilevel cervical spondylosis. Reading Location: [facility] Discharge Plan Triage Chief Complaint: Other, Pain/Inj ED Provider: Amado Anderson Dx/Rx/DC Orders Clinical Impression: Neck pain on left side, Cervical radiculopathy Instructions: ED Neck Pain, ED Radiculopathy, Cervical Prescriptions: No Action atorvastatin 20 mg tablet 20 mg PO QHS pantoprazole 40 mg tablet,delayed release (DR/EC) 40 mg PO DAILY acetaminophen [Tylenol] 325 mg tablet 650 mg PO Q6H PRN (Reason: Breakthrough Pain, Mild) Eliquis 2.5 mg tablet 2.5 mg PO BID Qty: 180 3RF ferrous sulfate 324 mg (65 mg iron) tablet,delayed release (DR/EC) 324 mg PO QDAY mesalamine 1,000 mg suppository 1,000 mg AK Q OTHER DAY levothyroxine 25 mcg tablet 25 mcg PO QDAY polyethylene glycol 3350 [Miralax] 17 gram/dose powder 17 g PO QDAY PRN ipratropium bromide 21 mcg (0.03 %) spray,non-aerosol 2 spray intranasal BID-TID PRN (Reason: postnasal drainage) Qty: 30 0RF Rx Instructions: administer into each nostril balsalazide 750 mg capsule 2,250 mg PO TID levocetirizine 5 mg tablet 5 mg PO QHS Patient Comments: TAKE 1 TABLET BY MOUTH EVERYDAY AT BEDTIME amiodarone 200 mg tablet 100 mg PO QDAY Qty: 90 3RF Primary Care Provider: Marcelo Mccullough Chi Referrals: Marcelo Mccullough Chi, MD [Primary Care Provider, Geriatrics] - 3-5 Days if not improving Activity Restrictions/Additional Instructions: Take Tylenol 500 mg orally every 6 hours as needed for pain. There is a maximum of 3000 mg in a 24-hour period. Follow-up with your primary care provider. Return with new or worsening symptoms. Print Language: Belizean Disposition Disposition: Home, Self Care
--- NOTE | 2025-02-17 07:48 | CT_ITS ---
PROCEDURE: SPINE CERVICAL WITHOUT CONTRAS 02/17/2025 REASON FOR EXAM: Clinical history of pain TECHNIQUE: Procedure Code: CTS Modality: CT Procedure: SPINE CERVICAL WITHOUT CONTRAS Coronal and Sagittal reconstruction series were provided. One or more dose reduction techniques were used (e.g., Automated exposure control, adjustment of the mA and/or kV according to patient size, use of iterative reconstruction technique. RADIATION DOSE SUMMARY: DLP: 273.02 mGycm COMPARISON: CT cervical spine 11/06/2022 FINDINGS: The visualized posterior fossa contents appear within normal limits for the patient's stated age. The normal cervical lordosis is maintained. The atlantooccipital and atlantoaxial joints appear normally aligned. The atlas and axis are intact. The remaining cervical vertebral bodies are normal in height. The cervical vertebral bodies are normal in alignment.There is no evidence of focal lytic or sclerotic lesion in the cervical spine. There is no prevertebral soft tissue swelling. Intervertebral disc space height loss at multiple levels most prominent at C5-C6 and C6-C7. C2-C3: No significant disc herniation. Bilateral facet arthrosis and uncovertebral spurring. Mild left neural foraminal narrowing. No significant right neural foraminal narrowing. C3-C4: Posterior disc osteophyte complex, bilateral facet arthrosis, and uncovertebral spurring. Mild spinal canal stenosis. [id number] bilateral neural foraminal narrowing. C4-C5: Posterior disc osteophyte complex, bilateral facet arthrosis, and uncovertebral spurring. No significant spinal canal stenosis. [id number] bilateral neural foraminal narrowing. C5-C6: Posterior disc osteophyte complex, bilateral facet arthrosis, and uncovertebral spurring. Mild spinal canal stenosis. Moderate bilateral neural foraminal narrowing. C6-C7: Posterior osteophyte, bilateral facet arthrosis, and uncovertebral spurring. No significant spinal canal stenosis. Mild right and [id number] left neural foraminal narrowing. C7-T1: No significant spinal canal stenosis neural foraminal narrowing. CT/Spine Cervical without Contras IMPRESSION: 1. No acute fracture or dislocation in the cervical spine. 2. Multilevel cervical spondylosis. Reading Location: [id number]
[2025-02-17] MEDS: HYDROcodone Bitartrate/Apap 5/325 Tablet PO (07:55)
--- OUTSIDE RECORDS SUMMARY | 2025-02-17 08:27 | XMS RPT_ITS | CCD ---
Author Organization [facility]ini[facility] Care Team Providers Care Air Tank Assembler Name Role Phone Maryjane Murphy Carlota Unavailable Unavailable Antoni, JULIUS, Jemma Spence Unavailable Unavailledy Puente RN, Izzy Naidu Unavailable Unavailable Antoni, JULIUS, Jemma Spence Unavailable Unavailledy Corrales, RN, Jemma Spence Unavailable Brando Cerna MD, Temo Mc Unavailable Elizabeth Damon Unavailable Unavailable JULIUS Corrales, Jemma Spence Unavailable Brando Mccullough MD, Nydia Primary Care Provider Dr. Marcelo Mccullough Chi Primary Care Provider Dr. Nicole Ventura Emergency Provider Dr. Simon Lund Admit Provider Dr. Simon Lund Attending Provider Dr. Simon Lund Other Provider Dr. Leah Marie Attending Provider Dr. Eloy Roberts Attending Provider Dr. Eloy Roberts Other Provider Dr. Marcelo Mccullough Chi Referring Provider MIRA Perales Attending Provider JAMEL WOOD, DR MORRELL Primary Care Physician Dr. Macrelo Mccullough Chi Primary Care Provider Dr. Marcelo Mccullough Chi Referring Provider MIRA Perales Attending Provider Dr. Marcelo Mccullough Chi Other Provider Dr. José Miguel Perez Attending Provider Jamel, Dr. Marcelo Quinones Primary Care Provider Jamel, Dr. Marcelo Quinones Referring Provider MIRA Perales Attending Provider Jamel, Dr. Marcelo Quinones Primary Care Provider Jamel, Dr. Marcelo Quinones Referring Provider Jamel, Dr. Marcelo Quinones Primary Care Provider Dr. Khari Lindsay Emergency Provider Dr. Mariana Rich Admit Provider Dr. Mariana Rich Attending Provider Dr. Mariana Rich Other Provider Frank, Dr. Lynn Attending Provider Frank, Dr. Lynn Other Provider Dr. Jaime Nuñez Attending Provider Unavailable Dr. Jaime Nuñez Other Provider Unavailable Frank, Dr. Lynn Referring Provider Jamel, Dr. Marcelo Quinones Primary Care Provider Dr. Khari Lindsay Emergency Provider Dr. Mariana Rich Admit Provider Dr. Mariana Rich Attending Provider Dr. Mariana Rich Other Provider Frank, Dr. Lynn Attending Provider Frank, Dr. Lynn Referring Provider Frank, Dr. Lynn Other Provider Dr. Jaime Nuñez Attending Provider Unavailable Dr. Jaime Nuñez Other Provider Unavailable Jamel, Dr. Marcelo Quinones Primary Care Provider Dr. Tyson Miller Attending Provider Dr. Ady Rothman Referring Provider [phone] Jamel, Dr. Marcelo Quinones Referring Provider MIRA Perales Attending Provider DEVIN WOOD, DR JONES Attending Unavailabl jenifer MCCULLOUGH MD, DR MORRELL Primary Care Unavailable JamelMarcelo cyr Chi Primary Care Provider [phone] Erick Beltran MD Unavailable Tyson Miller MD Unavailable Roof INDIAN NANNY.SUPPLIER SPECIALIST, Dee H Unavailable [phone] ROOF, [facility] Referring Unavailable JAMEL, MARCELO CHI Primary Care Unavailable ANDREW WADSWORTH Attending Unavailable Jamel WOOD, Dr. Marcelo Quinones Primary Care Provider Jamel WOOD, Dr. Mracelo Quinones Referring Provider [facility] REPAIR DEPARTMENT SUPERVISOR-C, Dee Menezes Attending Provider Jamel WOOD, Dr. Marcelo Quinones Attending Provider Alisha WOOD, Dr. Lyons Attending Provider Justin WOOD, Amado Referring Provider Amado Anderson MD Emergency Provider Jamel WOOD, Dr. Marcelo Quinones Primary Care Provider Jamel WOOD, Dr. Marcelo Quinones Attending Provider Jamel WOOD, Dr. Marcelo Quinones Referring Provider [facility] REPAIR DEPARTMENT SUPERVISOR-C, Dee Menezes Attending Provider Amado Anderson MD Attending Provider Bronwyn Low Attending Provider Terrell Tellez Attending Provider Paul WOOD, Dr. Mehta Attending Provider [phone] Jamel WOOD, Dr. Marcelo Quinones Primary Care Provider Jamel WOOD, Dr. Marcelo Quinones Referring Provider Jamel WOOD, Dr. Marcelo Quinones Attending Provider Jamel WOOD, Dr. Marcelo Quinones Primary Care Provider Jamel WOOD, Dr. Marcelo Quinones Referring Provider Jamel WOOD, Dr. Marcelo Quinones Primary Care Provider Dr. Marcelo Mccullough MD, Chi Referring Provider Dr. Marcelo Mccullough MD, Chi Attending Provider [phone] Jaime Servin Admitting Unavailable Hilario, Mariana Attending Unavailable Jamel, Marcelo Chi Primary Care Unavailable Jaime Servin Consulting Unavailable Paul, Tyson Consulting Unavailable Hilario, Mariana Consulting Unavailable Jaime Servin Attending Unavailable Paul, Tyson Attending Unavailable Jamel, Marcelo Chi Referring Unavailable Jamel, Marcelo Chi Attending Unavailable Jamel, Marcelo Chi Primary Care Unavailable Jamel, Marcelo Chi Attending Unavailable Jamel, Marcelo Chi Primary Care Unavailable Jamel, Marcelo Chi Referring Unavailable Paul, Tyson Attending Unavailable Jamel, Marcelo Chi Primary Care Unavailable Dee Ku NP Attending Unavailable Jamel, Marcelo Chi Referring Unavailable Jamel, Marcelo Chi Primary Care Unavailable Eloy Brito Attending Unavailable Jamel, Marcelo Chi Referring Unavailable Jamel, Marcelo Chi Primary Care Unavailable Jamel, Marcelo Chi Referring Unavailable Cris Perales Attending Unavail able Jaeml, Marcelo Chi Primary Care Unavailable Roof Dee FROST Attending Unavailable Jamel, Marcelo Chi Referring Unavailable Jamel, Marcelo Chi Primary Care Unavailable Jamel, Marcelo Chi Attending Unavailable Jamel, Marcelo Chi Referring Unavailable Jamel, Marcelo Chi Primary Care Unavailable Eloy Lane Attending Unavailable Jamel, Marcelo Chi Primary Care Unavailable ReodicaAmado Attending Unavailable Jamel, Marcelo Chi Primary Care Unavailable Reodica, Amado Referring Unavailable Jamel, Marcelo Chi Referring Unavailable Jamel, Marcelo Chi Attending Unavailable Jamel, Marcelo Chi Primary Care Unavailable Jamel, Marcelo Chi Attending Unavailable Jamel, Marcelo Chi Primary Care Unavailable Jamel, Marcelo Chi Referring Unavailable Schwartz Bronwyn Attending Unavailable Jamel, Marcelo Chi Referring Unavailable Jamel, Marcelo Chi Primary Care Unavailable Schwartz, Bronwyn Attending Unavailable Jamel, Marcelo Chi Attending Unavailable Jamel, Marcelo Chi Referring Unavailable Jamel, Marcelo Chi Primary Care Unavailable Jamel, Marcelo Chi Attending Unavailable Jamel, Marcelo Chi Referring Unavailable Jamel, Marcelo Chi Primary Care Unavailable Jamel, Marcelo Chi Attending Unavailable Jamel, Marcelo Chi Referring Unavailable Jamel, Marcelo Chi Primary Care Unavailable Terrell Tellez Attending Unavailable Jamel, Marcelo Chi Primary Care Unavailable Jamel, Marcelo Chi Referring Unavailable Jamel, Marcelo Chi Attending Unavailable Jamel, Marcelo Chi Referring Unavailable Jamel, Marcelo Chi Primary Care Unavailable Roof Dee FROST Attending Unavailable Jamel, Marcelo Chi Referring Unavailable Jamel, Marcelo Chi Primary Care Unavailable Erick Beltran Attending Unavailable Erick Beltran Referring Unavailable Jamel, Marcelo Chi Primary Care Unavailable Jaime Servin Consulting Unavailable Mariana Rich Attending Unavailable Jamel, Marcelo Chi Primary Care Unavailable Jaime Servin Admitting Unavailable Tyson Miller Consulting Unavailable Allergies Allergy Classification Reported Allergen(s) Allergy Type Date of Onset Reaction(s) Facility (20 sources) Ragweed pollen; Translations: [ragweed pollen] Propensity to adverse reactions 2 Nasal congestion [facility] (12 sources) Digoxin; Translations: [DIGOXIN] Drug Allergy 4 Other: See Comments [facility] (2 sources) Albuterol; Translations: [ALBUTEROL SULFATE] Drug Allergy 5 Other: See Comments [facility] (9 sources) Albuterol Drug Allergy 5 Chest tightness/afib rvr [facility] Comment on above: A-fib with RvR (1 source) Albuterol Drug Allergy 5 [facility] (1 source) Digoxin Drug Allergy 5 [facility] Medications Current Medications Medication Drug Class(es) Dates Sig (Normalized) Sig (Original) acetaminophen 325 mg oral tablet (20 sources) Start: 05-08-2021 take 2 tablets by mouth every six hours as needed for pain Acetaminophen (Tylenol) 325 mg tablet Active 650 mg PO EVERY 6 HOURS as needed for Breakthrough Pain, Mild May 08, 2021 1:00am apixaban 2.5 mg oral tablet (20 sources) Factor Xa Inhibitor Start: 08-03-2024 take 1 tablet by mouth twice daily Apixaban (Eliquis) 2.5 mg tablet Active 2.5 mg PO TWICE A DAY 180 3 August 03, 2024 12:00am Start: 10-28-2023 End: 07-19-2024 take 2.5 mg by mouth twice daily Apixaban (Eliquis) 5 mg tablet Discontinued 2.5 mg PO TWICE A DAY October 28, 2023 10:45am July 19, 2024 9:31am blood thinner On Hold: Until cleared to start again by Dr. Beltran Start: 12-16-2017 End: 10-28-2023 take 1 tablet by mouth twice daily Apixaban (Eliquis) 5 mg tablet Discontinued 5 mg PO TWICE A DAY December 16, 2017 5:28pm October 28, 2023 10:45am blood thinner Start: 04-06-2017 End: 12-16-2017 take 1 tablet by mouth once daily Apixaban (Eliquis) 5 mg tablet Discontinued 5 mg PO daily April 06, 2017 1:00am December 16, 2017 5:29pm Start: 10-03-2016 End: 10-06-2016 take 1 tablet by mouth twice daily Apixaban (Eliquis) 5 MG tablet Discontinued 5 mg PO TWICE A DAY October 03, 2016 12:00am October 06, 2016 6:47am apixaban 5 MG ta blet Take by mouth every 12 hours. 0 Active atorvastatin 20 mg oral tablet (20 sources) HMG-CoA Reductase Inhibitor Start: 03-17-2024 End: 05-15-2024 take 1 tablet by mouth at bedtime Atorvastatin 20 mg tablet Active 20 mg PO AT BEDTIME May 15, 2024 10:56am cholesterol Start: 03-24-2023 End: 03-17-2024 take 10 mg by mouth at bedtime Atorvastatin 20 mg tabl et Discontinued 10 mg PO AT BEDTIME March 24, 2023 11:41am March 17, 2024 11:43am cholesterol Start: 03-24-2023 take 10 mg by mouth at bedtime Atorvastatin Active 10 MG PO AT BEDTIME March 24, 2023 10:41am Start: 11-03-2018 End: 03-24-2023 take 1 tablet by mouth at bedtime Atorvastatin 20 mg tablet Discontinued 20 mg PO AT BEDTIME November 03, 2018 12:00am March 24, 2023 11:42am cholesterol Start: 12-16-2017 End: 11-03-2018 take 1 tablet by mouth once daily Atorvastatin 40 mg tablet Discontinued 40 mg PO DAILY December 16, 2017 12:00am November 03, 2018 8:59am Start: 06-30-2017 End: 12-16-2017 take 1 tablet by mouth once daily Atorvastatin 20 mg tablet Discontinued 20 mg PO daily June 30, 2017 12:00am December 16, 2017 5:33pm Start: 04-06-2017 End: 06-30-2017 take 1 tablet by mouth once daily Atorvastatin (Lipitor) 40 mg tablet Discontinued 40 mg PO daily April 06, 2017 1:00am June 30, 2017 4:48pm Start: 10-07-2016 take 1 tablet by buster th once daily ATORVASTATIN CALCIUM 40 MG TABS One tablet by mouth every night ATORVASTATIN CALCIUM [id number] Temo Cerna MD take 1 tablet by buster th once daily atorvastatin 10 MG tablet Take 10 mg by mouth daily. 0 Active Atropine (1 source) Anticholinergic, Cholinergic Muscarinic Antagonist Atropine Sulfate (ATROPINE IJ) Inject as directed. 0 Active balsalazide disodium 750 mg oral capsule (20 sources) Aminosalicylate Start: 05-15-19 take 1 capsule by mouth three times daily Balsalazide 750 mg capsule Active 2250 mg PO THREE TIMES A DAY May 15, 2024 11:00am stomach Start: 06-11-2022 take 3 capsules by m outh twice daily balsalazide 750 mg oral capsule 3 (THREE) CAPSULE BY MOUTH TWO TIMES DAILY, WILL NEED AN OFFICE APPT FOR FURTHER REFILLS Start Date: 06/11/22 Status: Ordered Start: 07-11-2019 End: 05-15-2024 take 9 capsules by mouth once daily Balsalazide 750 mg capsule Discontinued 2250 mg PO THREE TIMES A DAY July 11, 2019 8:43am May 15, 2024 11:04am stomach 750 mg PO 9 capsules per day; Start: 07-11-2019 take 6 capsules by m outh once daily Balsalazide Active 2250 MG PO TWICE A DAY July 11, 2019 7:43am 750 mg PO 6 capsules per day; Start: 07-11-2019 Balsalazide Ac tive 750 MG PO .COMPLEX July 11, 2019 7:43am 750 mg PO 6 per day; Start: 10-07-2016 take 1 tablet by buster th twice daily BALSALAZIDE DISODIUM CAPS One tablet by mouth twice daily BALSALAZIDE DISODIUM CAPS [id number] Jemma Corrales RN Start: 10-03-2016 End: 07-11-2019 take 1 capsule by mouth twice daily Balsalazide 750 MG capsule Discontinued 750 mg PO TWICE A DAY April 06, 2017 1:32pm July 11, 2019 8:44am Start: 10-03-2016 End: 04-06-2017 take 2250 mg by mouth twice daily Balsalazide Discontinued 2250 MG PO TWICE A DAY October 02, 2016 11:00pm April 06, 2017 12:35pm Start: 04-10-2008 take 3 capsules by m outh three times daily balsalazide disodium(COLAZAL 750 MG CAP) Take 3 capsules by mouth three times a day. 0 04/10/2008 Active BALSALAZIDE DISO DIUM PO Take by mouth. 0 Active ferrous sulfate 324 mg delayed release oral tablet (10 sources) Start: 03-17-2024 take 1 tablet by mouth once daily Ferrous Sulfate 324 mg (65 mg iron) tablet,delayed release (DR/EC) Active 324 mg PO daily March 17, 2024 1:00am take 1 tablet by mouth once smita y ferrous sulfate 325 mg (65 mg iron) EC tablet Take 325 mg by mouth once daily. Active Ipratropium [place] 21 mcg ( 0.03 %) spray,non-aerosol (7 sources) Start: 07-20-2024 Ipratropium Br omide 21 mcg (0.03 %) spray,non-aerosol Active 2 NMA INTRANASAL 2 to 3 times per day as needed for postnasal drainage July 20, 2024 12:00am administer into each nostril Start: 07-20-2024 Ipratropium Br omide 21 mcg (0.03 %) spray,non-aerosol Active 2 NMA INTRANASAL 2 to 3 times per day as needed for postnasal drainage July 20, 2024 12:00am administer into each nostril levocetirizine dihydrochloride 5 mg oral tablet (15 sources) Histamine-1 Receptor Antagonist Start: 01-18-2023 take 1 tablet by mouth at bedtime Levocetirizine 5 mg tablet Active 5 mg PO AT BEDTIME January 18, 2023 12:00am levothyroxine sodium 0.025 mg oral tablet (10 sources) l-Thyroxine Start: 05-15-2024 take 1 tablet by mouth once daily Levothyroxine 25 mcg tablet Active 25 ug PO daily May 15, 2024 1:00am Start: 03-23-2024 take 1 tablet by mouth once le vothyroxine (SYNTHROID) 25 mcg tablet Take 1 tablet by mouth every afternoon. 03/23/2024 Active Lopressor 25mg--USE metoprolol tartrate 25 mg oral tablet (2 sources) Start: 06-11-2022 take 1 tablet by mouth twice daily Lopressor 25mg--USE metoprolol tartrate 25 mg oral tablet TAKE 1 TABLET BY MOUTH TWICE A DAY Start Date: 06/11/22 Status: Ordered mesalamine 1000 mg rectal suppository (19 sources) Aminosalicylate Start: 03-17-2024 End: 05-15-2024 Mesalamine 1,000 mg suppository Active 1000 mg RC every other day May 15, 2024 10:58am Start: 01-19-2024 mesalamine ([employer]) 1,000 mg suppository INSERT 1 SUPP RECTALLY EVERY DAY AT BEDTIME 01/19/2024 Active polyethylene glycol 3350 82123 mg powder for oral solution (9 sources) Osmotic Laxative Start: 05-15-2024 Polyethylene Glycol 3350 (Miralax) 17 gram/dose powder Active 17 g PO daily as needed May 15, 2024 1:00am vit C/E/Zn/coppr/lutein/ zeaxan (PRESERVISION AREDS-2 ORAL) (1 source) take 1 capsule by mouth twice daily vit C/E/Zn/coppr/lutein /zeaxan (PRESERVISION AREDS-2 ORAL) Take 1 capsule by mouth two times a day. Active Completed/Discontinued Medications Medication Drug Class(es) Dates Sig (Normalized) Sig (Original) [id number] actuat albuterol 0.09 mg/actuat metered dose inhaler (20 sources) beta2-Adrenergic Agonist Start: 10-26-2022 End: 03-17-2024 Albuterol Sulfate (Ventolin Hfa) 90 mcg/actuation HFA aerosol inhaler Discontinued 2 NMA INHALATION EVERY 4 HOURS NEEDED as needed for Wheezing 1 0 October 26, 2022 12:00am March 17, 2024 11:42am Start: 10-26-2022 take 1 puff(s) by in halation every four hours as needed Albuterol Sulfate (Ventolin Hfa) 90 mcg/actuation HFA aerosol inhaler Active 2 PUFF INHALATION EVERY 4 HOURS NEEDED October 25, 2022 11:00pm Start: 11-03-2018 End: 03-02-2019 Albuterol Sulfate (Proair Hf a) 90 mcg/actuation HFA aerosol inhaler Discontinued 2 NMA INHALATION EVERY 6 HOURS November 03, 2018 12:00am March 02, 2019 10:27am Start: 11-03-2018 End: 03-02-2019 take 1 puff(s) by inhalation every six hours Albuterol Sulfate (Proair Hfa) 90 mcg/actuation HFA aerosol inhaler Discontinued 2 PUFF INHALATION EVERY 6 HOURS November 02, 2018 11:00pm March 02, 2019 9:27am Start: 04-13-2017 End: 05-25-2017 Albuterol Sulfate (Proair Hf a) 90 mcg/actuation HFA aerosol inhaler Discontinued 2 NMA INHALATION EVERY 6 HOURS as needed for shortness of breath or wheezing 1 April 13, 2017 1:00am May 25, 2017 5:18pm administer with spacer Start: 04-13-2017 End: 05-25-2017 take 1 puff(s) by inhalation every six hours Albuterol Sulfate (Proair Hfa) 90 mcg/actuation HFA aerosol inhaler Discontinued 2 PUFF INHALATION EVERY 6 HOURS April 13, 2017 12:00am May 25, 2017 4:18pm administer with spacer amiodarone hydrochloride 200 mg oral tablet (20 sources) Antiarrhythmic Start: 03-17-2024 End: 04-10-2024 take 1 tablet by mouth once daily Amiodarone 200 mg tablet Discontinued 200 mg PO daily 90 March 17, 2024 12:15pm April 10, 2024 4:39pm Start: 02-29-2024 Amiodarone 200 mg tablet Active 100 mg PO daily 90 April 10, 2024 4:38pm Start: 02-29-2024 End: 03-17-2024 take 1 tablet by mouth three times daily, then take 1 tablet by mouth twice daily, then take 1 tablet by mouth once daily Amiodarone 200 mg Tablet Discontinued 200 mg PO THREE TIMES A DAY 65 0 February 29, 2024 1:00am March 17, 2024 11:43am Take 200 mg 3 times daily x 7 days, then 200 mg twice daily x 7 days, then 200 mg daily Start: 11-12-2022 End: 03-24-2023 take 1 tablet by mouth once daily Amiodarone 200 mg Tablet Discontinued 200 mg PO DAILY 90 0 November 12, 2022 12:00am March 24, 2023 11:41am amLODIPine 5 mg oral tablet (20 sources) Dihydropyridine Calcium Channel Liang Start: 11-11-2022 End: 02-03-2023 take 1 tablet by mouth once daily Amlodipine 5 mg tablet Discontinued 5 mg PO DAILY November 11, 2022 12:00am February 03, 2023 8:57am Start: 06-08-2022 End: 06-08-2022 take 2.5 mg by mouth once daily Amlodipine 5 mg tablet Discontinued 2.5 mg PO DAILY June 08, 2022 9:00am June 08, 2022 9:01am Start: 06-08-2022 End: 06-08-2022 take 2.5 mg by mouth once daily Amlodipine Discontinue d 2.5 MG PO DAILY June 08, 2022 8:00am June 08, 2022 8:01am Start: 06-08-2022 End: 06-08-2022 take 1 tablet by mouth once daily Amlodipine 5 mg tablet Discontinued 5 mg PO DAILY June 08, 2022 12:00am June 08, 2022 9:00am Start: 05-08-2021 End: 02-22-2022 take 1 tablet by mouth once daily Amlodipine 5 mg tablet Discontinued 5 mg PO DAILY May 12, 2021 12:25pm February 22, 2022 1:57pm Start: 07-26-2020 End: 05-08-2021 take 5 mg by mouth once daily Amlodipine 10 mg tablet Discontinued 5 mg PO DAILY July 26, 2020 8:50am May 08, 2021 12:07pm Start: 07-26-2020 End: 05-08-2021 take 5 mg by mouth once daily Amlodipine Discontinued 5 MG PO DAILY July 26, 2020 7:50am May 08, 2021 11:07am Start: 10-06-2016 End: 07-26-2020 take 1 tablet by mouth once daily Amlodipine 10 mg tablet Discontinued 10 mg PO DAILY January 24, 2020 7:09pm July 26, 2020 8:50am aspirin 81 mg chewable tablet (20 sources) Nonsteroidal Anti-inflammatory Drug Start: 02-29-2024 End: 10-18-2024 take 1 tablet by mouth at breakfast Aspirin 81 mg Tablet,Chewable Discontinued 81 mg PO WITH BREAKFAST 0 0 February 29, 2024 1:00am October 18, 2024 10:18am Start: 02-22-2022 End: 03-06-2022 take 1 tablet by mouth at breakfast Aspirin 81 mg Tablet,Delayed Release (Dr/Ec) Discontinued 81 mg PO WITH BREAKFAST 0 0 February 22, 2022 1:00am March 06, 2022 9:45am Start: 07-11-2019 End: 05-08-2021 take 1 tablet by mouth every other day Aspirin 81 mg tablet,delayed release (DR/EC) Discontinued 81 mg PO .COMPLEX July 11, 2019 12:00am May 08, 2021 12:09pm 81 mg PO qod; Start: 12-20-2017 End: 03-02-2019 take 1 tablet by mouth once daily Aspirin (Adult Aspirin Regimen) 81 mg tablet,delayed release (DR/EC) Discontinued 81 mg PO DAILY December 20, 2017 12:00am March 02, 2019 10:27am Start: 10-07-2016 take 1 tablet by buster th once daily ASPIRIN EC 81 MG TBEC One tablet by mouth daily ASPIRIN [id number] Jemma Corrales RN Start: 10-06-2016 End: 04-06-2017 take 1 tablet by mouth once daily Aspirin 81 MG tablet,chewable Discontinued 81 mg PO DAILY@0800 30 0 October 06, 2016 12:00am April 06, 2017 1:35pm take 1 capsule by mo [facility] once daily aspirin 81 mg cap Take 1 capsule by mouth once daily. Active 24 hr budesonide 9 mg extended release oral tablet (10 sources) Corticosteroid Start: 02-23-2024 End: 05-15-2024 take 1 tablet by mouth once daily Budesonide 9 mg tablet,delayed and ext.release Discontinued 9 mg PO DAILY February 28, 2024 1:00am May 15, 2024 11:00am calcium carbonate 500 mg chewable tablet (9 sources) Start: 05-15-2024 End: 08-03-2024 take 1 tablet by mouth twice daily Calcium Carbonate (Tums) 200 mg calcium (500 mg) tablet,chewable Discontinued 200 mg PO TWICE A DAY May 15, 2024 1:00am August 03, 2024 8:37am cephalexin 500 mg oral capsule (8 sources) Cephalosporin Antibacterial Start: 07-06-2024 End: 07-19-2024 take 1 capsule by mouth every twelve hours Cephalexin 500 mg capsule Discontinued 500 mg PO EVERY 12 HOURS 14 0 July 06, 2024 12:00am July 19, 2024 9:31am Clobetasol (1 source) Corticosteroid End: 04-19-2024 CLOBETASOL PROPIONATE (CLOBETASOL TOPICAL) Apply to affected area. 04/19/2024 Discontinued (Other) clopidogrel 75 mg oral tablet (20 sources) [id number] Platelet Inhibitor Start: 10-06-2016 End: 12-20-2017 take 1 tablet by mouth once daily Clopidogrel 75 mg tablet Discontinued 75 mg PO DAILY 90 October 20, 2017 4:21pm December 20, 2017 4:23pm 12 hr dextromethorphan polistirex 6 mg/ml extended release suspension (20 sources) Uncompetitive U-zdafpl-Z-aspartat e Receptor Antagonist, Sigma-1 Agonist Start: 05-08-2021 End: 02-27-2024 take 1 mL by mouth every twelve hours as needed for cough Dextromethorphan Polistirex (Robitussin Er) 30 mg/5 mL suspension,extended rel 12 hr Discontinued 10 mL PO Q12H as needed for Cough May 08, 2021 1:00am February 27, 2024 11:57am Start: 05-08-2021 take 1 mL by mouth e very twelve hours Dextromethorphan Polistirex (Robitussin Er) 30 mg/5 mL suspension,extended rel 12 hr Active 10 ML PO Q12H May 08, 2021 12:00am digoxin 0.125 mg oral tablet (20 sources) Cardiac Glycoside Start: 06-04-2023 End: 12-08-2023 take 1 tablet by mouth once daily Digoxin 125 mcg (0.125 mg) tablet Discontinued 125 ug PO DAILY June 04, 2023 12:00am December 08, 2023 9:24am Start: 03-16-2023 End: 04-22-2023 take 1 tablet by mouth once daily Digoxin 125 mcg (0.125 mg) tablet Discontinued 125 ug PO DAILY 90 March 24, 2023 12:22pm April 22, 2023 12:02pm doxycycline monohydrate 100 mg oral capsule (16 sources) Tetracycline-class Drug Start: 07-20-2024 End: 07-30-2024 take 1 capsule by mouth twice daily Doxycycline Monohydrate 100 mg capsule Discontinued 100 mg PO TWICE A DAY 20 10 0 July 20, 2024 12:00am July 29, 2024 12:00am July 30, 2024 12:08am Start: 02-27-2024 End: 02-29-2024 take 1 capsule by mouth twice daily Doxycycline Hyclate 100 mg capsule Discontinued 100 mg PO TWICE A DAY 14 7 0 February 27, 2024 1:00am March 04, 2024 1:00am February 29, 2024 1:10pm escitalopram 5 mg oral tablet (13 sources) Serotonin Reuptake Inhibitor Start: 02-03-2023 End: 03-24-2023 take 1 tablet by mouth once daily Escitalopram Oxalate 5 mg tablet Discontinued 5 mg PO DAILY February 03, 2023 1:00am March 24, 2023 11:41am famotidine 40 mg oral tablet (20 sources) Histamine-2 Receptor Antagonist Start: 03-02-2019 End: 01-26-2020 take 1 tablet by mouth once daily Famotidine 40 mg tablet Discontinued 40 mg PO DAILY March 02, 2019 1:00am January 26, 2020 12:40pm fluticasone propionate 0.05 mg/actuat metered dose nasal spray (20 sources) Corticosteroid Start: 05-18-2017 End: 06-15-2017 Fluticasone Propionate 50 mcg/actuation spray,suspension Discontinued 1 NMA INTRANASAL DAILY 16 May 18, 2017 1:00am June 15, 2017 8:26am Start: 04-06-2017 End: 05-25-2017 Fluticasone Propionate (Nathan rgy Relief (Fluticasone)) 50 mcg/actuation spray,suspension Discontinued 2 NMA INTRANASAL daily April 06, 2017 1:00am May 25, 2017 5:19pm Start: 04-06-2017 End: 06-15-2017 Fluticasone Propionate Disco ntinued 1 SPRAY INTRANASAL DAILY May 18, 2017 12:00am June 15, 2017 7:26am Fluticasone Furoate-Vilanterol (20 sources) Corticosteroid, beta2-Adrenergic Agonist Start: 06-15-2017 End: 12-20-2017 Fluticasone Furoate-Vilanterol (Breo Ellipta) 200-25 mcg/dose blister with device Discontinued 1 NMA INHALATION daily 60 6 June 15, 2017 12:00am December 20, 2017 4:16pm after inhalation, rinse mouth with water and spit out; do not swallow Start: 06-15-2017 End: 12-20-2017 Fluticasone Furoate-Vilanter ol (Breo Ellipta) 200-25 mcg/dose blister with device Discontinued 1 NMA INHALATION daily 60 June 15, 2017 12:00am December 20, 2017 4:16pm after inhalation, rinse mouth with water and spit out; do not swallow Start: 06-15-2017 End: 12-20-2017 Fluticasone Furoate-Vilanter ol (Breo Ellipta) 200-25 mcg/dose blister with device Discontinued 1 INH INHALATION daily 60 June 15, 2017 12:00am December 20, 2017 4:16pm after inhalation, rinse mouth with water and spit out; do not swallow Start: 06-15-2017 End: 12-20-2017 Fluticasone Furoate-Vilanter ol (Breo Ellipta) 200-25 mcg/dose blister with device Discontinued 1 INH INHALATION daily 60 June 14, 2017 11:00pm December 20, 2017 3:16pm after inhalation, rinse mouth with water and spit out; do not swallow guaiFENesin 20 mg/ml oral solution (20 sources) Start: 05-15-2024 End: 08-03-2024 take 200 mg by mouth every four hours as needed Guaifenesin 100 mg/5 mL liquid Discontinued 200 mg PO Q4H as needed May 15, 2024 1:00am August 03, 2024 8:37am Start: 05-08-2021 End: 02-27-2024 take 1 tablet by mouth every twelve hours as needed for cough, then take 1 tablet by mouth every twelve hours as needed for cough Guaifenesin (Mucinex) 600 mg tablet extended release 12hr Discontinued 600 mg PO Q12H as needed for Cough May 08, 2021 1:00am February 27, 2024 11:57am methylPREDNISolone 4 mg oral tablet (7 sources) Corticosteroid Start: 07-20-2024 End: 07-26-2024 take 1 tablet by mouth once Methylprednisolone (Medrol (Jaxon)) 4 mg tablets,dose pack Discontinued 4 mg PO per package directions 21 6 0 July 20, 2024 12:00am July 25, 2024 12:00am July 26, 2024 12:07am metoprolol tartrate 25 mg oral tablet (20 sources) beta-Adrenergic Liang Start: 02-05-2024 End: 07-19-2024 take 1 tablet by mouth twice daily Metoprolol Tartrate 25 mg tablet Discontinued 25 mg PO TWICE A DAY 180 April 11, 2024 10:42am July 19, 2024 9:32am On Hold: Fatigue/Weakness 05/15/2024 Start: 07-13-2023 End: 02-29-2024 Metoprolol Tartrate 25 mg ta blet Discontinued 12.5 mg PO TWICE A DAY 30 July 13, 2023 2:29pm February 29, 2024 1:10pm Take 12.5mg (1/2 tab) twice daily Start: 04-22-2023 End: 06-04-2023 Metoprolol Tartrate 25 mg ta blet Discontinued 12.5 mg PO TWICE A DAY April 22, 2023 1:00am June 04, 2023 8:58am Start: 04-22-2023 take 12.5 mg by mout h twice daily Metoprolol Tartrate Active 12.5 MG PO TWICE A DAY April 22, 2023 12:00am Start: 02-22-2022 End: 11-11-2022 take 1 tablet by mouth twice daily Metoprolol Tartrate 25 mg tablet Discontinued 25 mg PO TWICE A DAY 180 March 24, 2022 11:15am November 11, 2022 3:36am Start: 05-25-2017 End: 05-08-2021 Metoprolol Tartrate 25 mg ta blet Discontinued 12.5 mg PO TWICE A DAY 90 April 21, 2021 11:02am May 08, 2021 12:26pm Start: 05-25-2017 End: 05-08-2021 take 12.5 mg by mouth twice daily Metoprolol Tartrate Discontinued 12.5 MG PO TWICE A DAY April 21, 2021 10:02am May 08, 2021 11:26am Start: 04-06-2017 End: 05-25-2017 take 1 tablet by mouth once daily Metoprolol Tartrate 25 MG tablet Discontinued 25 mg PO daily April 06, 2017 1:34pm May 25, 2017 5:20pm Start: 10-07-2016 take 1 tablet by buster th twice daily METOPROLOL TARTRATE 25 MG TABS One half tablet by mouth twice daily METOPROLOL TARTRATE [id number] Temo Cerna MD Start: 10-06-2016 End: 04-06-2017 Metoprolol Tartrate 25 MG ta blet Discontinued 12.5 mg PO TWICE A DAY 60 0 October 06, 2016 12:00am April 06, 2017 1:35pm Start: 10-06-2016 End: 04-06-2017 take 12.5 mg by mouth twice daily Metoprolol Tartrate Discontinued 12.5 MG PO TWICE A DAY 60 October 05, 2016 11:00pm April 06, 2017 12:35pm nitroglycerin 0.4 mg sublingual tablet (20 sources) Nitrate Vasodilator Start: 04-06-2017 End: 07-19-2024 Nitroglycerin (Nitrostat) 0.4 mg tablet, sublingual Discontinued 0.4 mg SL every 5 to 15 minutes as needed for Chest Pain April 06, 2017 1:00am July 19, 2024 9:32am Start: 04-06-2017 Nitroglycerin (Nitrostat) 0.4 mg tablet, sublingual Active 0.4 MG SL every 5 to 15 minutes April 06, 2017 12:00am Drug Treatment Unknown - unknown (1 source) No information available. oxymetazoline hydrochloride 0.5 mg/ml nasal spray (20 sources) Start: 8 End: 9 Oxymetazoline (Vicks Sinex 12-Hour) 0.05 % spray,non-aerosol Discontinued 2 NMA INTRANASAL Q12H as needed June 15, 2017 12:00am March 02, 2019 10:27am pantoprazole 20 mg delayed release oral tablet (20 sources) Proton Pump Inhibitor Start: 8 End: 9 take 1 tablet by mouth once daily Pantoprazole 20 mg tablet,delayed release (DR/EC) Discontinued 20 mg PO DAILY December 16, 2017 5:34pm March 02, 2019 10:27am Start: 05-25-2017 End: 12-16-2017 take 2 tablets by mouth once daily Pantoprazole 20 MG tablet Discontinued 40 mg PO DAILY May 25, 2017 5:20pm December 16, 2017 5:35pm Start: 05-25-2017 End: 12-16-2017 take 40 mg by mouth once daily Pantoprazole Discontinu ed 40 MG PO DAILY May 25, 2017 4:20pm December 16, 2017 4:35pm Start: 10-03-2016 End: 05-25-2017 take 1 tablet by mouth once daily Pantoprazole 20 MG tablet Discontinued 20 mg PO DAILY October 03, 2016 12:00am May 25, 2017 5:20pm Start: 04-10-2008 take 1 tablet by buster th once daily Pantoprazole 40 mg tablet,delayed release (DR/EC) Active 40 mg PO DAILY January 26, 2020 1:00am stomach pravastatin sodium 40 mg oral tablet (20 sources) HMG-CoA Reductase Inhibitor Start: 04-06-2017 End: 05-25-2017 Pravastatin 40 MG tablet Discontinued 20 mg PO AT BEDTIME April 06, 2017 1:35pm May 25, 2017 5:20pm Start: 04-06-2017 End: 05-25-2017 take 20 mg by mouth at bedtime Pravastatin Discontinue d 20 MG PO AT BEDTIME April 06, 2017 12:35pm May 25, 2017 4:20pm Start: 10-06-2016 End: 04-06-2017 take 1 tablet by mouth at bedtime Pravastatin 40 MG tablet Discontinued 40 mg PO AT BEDTIME 30 0 October 06, 2016 12:00am April 06, 2017 1:35pm Start: 10-03-2016 End: 04-19-2024 take 1 tablet by mouth at bedtime Pravastatin 20 MG tablet Discontinued 20 mg PO AT BEDTIME October 03, 2016 12:00am October 06, 2016 6:47am predniSONE 20 mg oral tablet (18 sources) Start: 10-26-2022 End: 11-11-2022 take 3 tablets by mouth once daily Prednisone 20 mg tablet Discontinued 60 mg PO DAILY 12 October 26, 2022 12:00am November 11, 2022 3:35am Start: 10-26-2022 End: 11-11-2022 take 60 mg by mouth once daily Prednisone Discontinued 60 MG PO DAILY October 25, 2022 11:00pm November 11, 2022 2:35am Vit C,I-Fn-Okcpz-Lutein-Zeax an (Preservision Areds-2) 250-90-40-1 mg capsule (9 sources) Start: 02-28-2024 End: 10-18-2024 take 2 capsules by mouth twice daily Vit C,H-Qh-Jcddg-Lutein-Zeaxan (Preservision Areds-2) 250-90-40-1 mg capsule Discontinued 1 {tbl} PO TWICE A DAY February 28, 2024 1:00am October 18, 2024 10:22am Start: 02-28-2024 take 2 capsules by m outh twice daily Vit C,M-Cz-Kwabn-Lutein-Zeaxan (Preservision Areds-2) 250-90-40-1 mg capsule Active 1 {tbl} PO TWICE A DAY February 28, 2024 1:00am warfarin sodium 4 mg oral tablet (1 source) Vitamin K Antagonist End: 04-19-2024 take 1 tablet by mouth once daily warfarin 4 mg tablet Take 4 mg by mouth daily as directed. 04/19/2024 Discontinued (Other) Problems Active Problems Problem Classification Problem Date Documented Da te Episodic/Chronic Acute bronchitis (14 sources) Acute bronchitis; Translations: [Acute bronchitis, unspecified] 07-20-2024 Episodic Acute myocardial infarction (20 sources) Non-ST elevation (NSTEMI) myocardial infarction; Translations: [Myocardial infarction] Onset: 7 10-05-2016 Chronic Cardiac dysrhythmias (20 sources) Atrial fibrillation with rapid ventricular response; Translations: [Unspecified atrial fibrillation] Onset: Chronic Chronic obstructive pulmonary disease and bronchiectasis (20 sources) Bronchitis; Translations: [Bronchitis, not specified as acute or chronic] 02-21-2021 Episodic Complications of surgical procedures or medical care (20 sources) Drug therapy finding; Translations: [Unspecified adverse effect of drug or medicament, initial encounter] Onset: 5 02-03-2023 Episodic Conditions associated with dizziness or vertigo (13 sources) Lightheadedness; Translations: [Dizziness and giddiness] 02-03-2023 Episodic Coronary atherosclerosis and other heart disease (20 sources) Atherosclerotic heart disease of [place] coronary artery without angina pectoris; Translations: [Preinfarction syndrome] Onset: 7 10-05-2016 Chronic Comment on above: PCI-TAMIKO-RCA 3 x 16 m m Promus Synergy TAMIKO 7/17/17 Coronary atherosclerosis and other heart disease (1 source) Presence of coronary angioplasty implant and graft; Translations: [Status post primary angioplasty with coronary stent] Onset: 5 Episodic Diabetes mellitus without complication (19 sources) Hyperglycemia; Translations: [Hyperglycemia, unspecified] 11-11-2022 Episodic Disorders of lipid metabolism (20 sources) Hyperlipidemia; Translations: [Hyperlipidemia, unspecified] Onset: 7 10-07-2016 Chronic Esophageal disorders (1 source) Gastroesophageal reflux disease; Translations: [Gastro-esophageal reflux disease without esophagitis] 04-12-2024 Chronic Essential hypertension (20 sources) Hypertensive disorder; Translations: [Essential hypertension] Onset: 7 10-07-2016 Chronic Fever of unknown origin (1 source) Fever, unspecified; Translations: [Fever, unspecified] Onset: 5 Episodic Fluid and electrolyte disorders (20 sources) Hypokalemia; Translations: [Hypokalemia] 11-11-2022 Episodic Gastroduodenal ulcer (except hemorrhage) (20 sources) Peptic ulcer; Translations: [Peptic ulcer, site unspecified, unspecified as acute or chronic, without hemorrhage or perforation] 02-21-2021 Chronic Nonspecific chest pain (20 sources) Chest discomfort; Translations: [Other chest pain] Onset: 4 Episodic Other aftercare (6 sources) Other intermission coordinator (current) drug therapy; Translations: [Other nursing home (current) drug therapy] Onset: 7 10-07-2016 Episodic Other aftercare (20 sources) Long-term current use of anticoagulant; Translations: [USP (current) use of anticoagulants] 11-11-2022 Episodic Other aftercare (2 sources) Long-term current use of drug therapy; Translations: [Other intermission coordinator (current) drug therapy] Onset: 5 04-12-2024 Episodic Other connective tissue disease (1 source) Olecranon bursitis, left elbow; Translations: [Olecranon bursitis, left elbow] Onset: 5 Episodic Other diseases of veins and lymphatics (18 sources) Lymphedema of bilateral lower limbs; Translations: [Lymphedema, not elsewhere classified] 10-26-2022 Chronic Other diseases of veins and lymphatics (15 sources) Lymphedema; Translations: [Lymphedema, not elsewhere classified] 07-19-2024 Chronic Other diseases of veins and lymphatics (15 sources) Venous insufficiency of leg; Translations: [Other specified disorders of veins] 07-19-2024 Episodic Other gastrointestinal disorders (20 sources) Heartburn; Translations: [Heartburn] 02-21-2021 Episodic Other gastrointestinal disorders (2 sources) History of gastrointestinal bleed; Translations: [Personal history of other diseases of the digestive system] 04-12-2024 Episodic Other gastrointestinal disorders (1 source) Personal history of other diseases of the digestive system; Translations: [History of GI bleed] Onset: Episodic Other injuries and conditions due to external causes (1 source) Foreign body in esophagus; Translations: [Unspecified foreign body in esophagus causing other injury, initial encounter] Episodic Other lower respiratory disease (20 sources) Dyspnea on exertion; Translations: [Other forms of dyspnea] 03-02-2022 Episodic Other lower respiratory disease (20 sources) Cough; Translations: [Cough] 01-26-2020 Episodic Other lower respiratory disease (20 sources) Dyspnea; Translations: [Dyspnea, unspecified] 10-26-2022 Episodic Other lower respiratory disease (8 sources) Productive cough ; Translations: [Productive cough] 07-06-2024 Episodic Other lower respiratory disease (1 source) Wheezing; Translations: [Wheezing] Onset: Episodic Other nutritional; endocrine; and metabolic disorders (9 sources) Body mass index 25-29 - overweight; Translations: [Overweight] 03-06-2024 Episodic Other upper respiratory disease (18 sources) Acute bronchospasm; Translations: [Acute bronchospasm] 10-26-2022 Episodic Peripheral and visceral atherosclerosis (1 source) Peripheral vascular disease; Translations: [Peripheral vascular disease, unspecified] 04-12-2024 Chronic Phlebitis; thrombophlebitis and thromboembolism (15 sources) Chronic deep venous thrombosis of lower extremity; Translations: [Chronic embolism and thrombosis of unspecified deep veins of lower extremity, bilateral] 07-19-2024 Chronic Residual codes; unclassified (4 sources) Other specified personal risk factors, not elsewhere classified; Translations: [Other specified personal history presenting hazards to health] Onset: 5 04-12-2024 Episodic Residual codes; unclassified (2 sources) At risk of hemorrhage; Translations: [Other specified personal risk factors, not elsewhere classified] 04-12-2024 Episodic Residual codes; unclassified (16 sources) Edema of lower extremity; Translations: [Localized edema] 07-06-2024 Episodic Superficial injury; contusion (17 sources) Hematoma of occipital scalp; Translations: [Contusion of scalp, initial encounter] 11-06-2022 Episodic Thyroid disorders (1 source) Hypothyroidism, unspecified; Translations: [Hypothyroidism, unspecified] Onset: 5 Chronic Unclassified (4 sources) Placement of stent in coronary artery ; Translations: [Presence of coronary angioplasty implant and graft] Onset: 7 10-05-2016 Unclassified (3 sources) Long-term drug therapy; Translations: [Other intermission coordinator (current) drug therapy] Onset: 7 10-07-2016 Unclassified (1 source) Other persistent atrial fibrillation; Translations: [Persistent atrial fibrillation (HCC)] Onset: 5 Unclassified (2 sources) I48.0 - Paroxysmal atrial fibrillation,K92.2 - Gastrointestinal hemorrhage, unspecified,E78.5 - Hyperlipidemia, unspecified,Z79.01 - USP (current) use of anticoagulants,I25.10 - Atherosclerotic heart disease of [place] coronary artery without angina pectoris,Z86.718 - Personal history of other venous thrombosis and embolism Unclassified (1 source) Cough, unspecified; Translations: [Cough, unspecified] Onset: 5 Urinary tract infections (8 sources) Urinary tract infectious disease; Translations: [Urinary tract infection, site not specified] 07-06-2024 Episodic Past or Other Problems Problem Classification Problem Date Documented Da te Episodic/Chronic Allergic reactions (1 source) Radiation-induced dermatosis; Translations: [Other skin changes due to chronic exposure to nonionizing radiation] Onset: 9 04-16-2008 Episodic E Codes: Adverse effects of medical drugs (10 sources) Adverse reaction to drug; Translations: [Adverse effect of unspecified drugs, medicaments and biological substances, initial encounter] Onset: 4 03-06-2024 Episodic Gastrointestinal hemorrhage (10 sources) Gastrointestinal hemorrhage; Translations: [Gastrointestinal hemorrhage, unspecified] Onset: 4 03-17-2024 Episodic Malaise and fatigue (20 sources) Asthenia; Translations: [Weakness] Onset: 5 02-03-2023 Episodic Noninfectious gastroenteritis (1 source) Noninfective gastroenteritis and colitis, unspecified; Translations: [Noninfective gastroenteritis and colitis, unspecified] Onset: 4 Episodic Other aftercare (6 sources) terminal manager (current) use of anticoagulants; Translations: [Long-term (current) use of anticoagulants] Onset: 4 11-11-2022 Episodic Other lower respiratory disease (2 sources) Shortness of breath; Translations: [Shortness of breath] Onset: 4 Episodic Other nutritional; endocrine; and metabolic disorders (1 source) Overweight; Translations: [Overweight] Onset: Episodic Other skin disorders (1 source) Actinic keratosis; Translations: [Actinic keratosis] Onset: 9 04-16-2008 Episodic Other skin disorders (1 source) Disorder of skin pigmentation; Translations: [Disorder of pigmentation, unspecified] Onset: 9 04-16-2008 Episodic Other skin disorders (1 source) Seborrheic keratosis; Translations: [Other seborrheic keratosis] Onset: 9 04-16-2008 Episodic Other skin disorders (1 source) Localized swelling, mass and lump, lower limb, bilateral; Translations: [Localized swelling, mass and lump, lower limb, bilateral] Onset: 5 Episodic Other upper respiratory infections (10 sources) Upper respiratory infection; Translations: [Acute upper respiratory infection, unspecified] Onset: 4 02-28-2024 Episodic Phlebitis; thrombophlebitis and thromboembolism (20 sources) H/O: Deep vein thrombosis; Translations: [Personal history of other venous thrombosis and embolism] Onset: 4 11-11-2022 Episodic Residual codes; unclassified (1 source) Chills (without fever); Translations: [Chills (without fever)] Onset: Episodic Varicose veins of lower extremity (1 source) 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 Marcelo Mccullough MD Status: REG CLI Study: Elbow min 3 Views Date of Exam: 10/18/24 Exam# [id number] Ordering Dr: Marcelo Mccullough MD PROCEDURE: ELBOW MIN 3 VIEWS 10/18/2024 REASON FOR EXAM: OLECRANON BURSITIS, LEFT ELBOW LEFT ARM PAIN TECHNIQUE: ELBOW MIN 3 VIEWS COMPARISON: None FINDINGS: Bones: No fracture or dislocation. 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 There is evidence of a nondisplaced radial neck fracture. Age of which can not be determined at this time. Soft tissues: Small joint effusion. 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 Small joint effusion. Reading Location: [id number] CC: Dr. Marcelo Mccullough MD Tool And Die Supervisor: Signed [facility] Forearm 2 Viewson 10-18-2024 Forearm 2 Views [facility] [address] [place] [address] Forearm 2 Views MR#: [id number] Acct: [id number] Name: IRWIN CORDERO Rep #: [id number] : 1940 M 84 From: Jayson hernandez MD PCP: Dr. Marcelo Mccullough MD Status: REG CLI Study: Forearm 2 Views Date of Exam: 10/18/24 Exam# [id number] Ordering Dr: Marcelo Mccullough MD PROCEDURE: FOREARM 2 VIEWS 10/18/2024 REASON FOR EXAM: LEFT ELBOW PAIN LET ARM PAIN OLECRANON BURSITIS, LEFT ELBOW TECHNIQUE: FOREARM 2 VIEWS COMPARISON: None FINDINGS: Bones: No fracture or subluxation. 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 Soft tissues: Tiny joint effusion. 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 Tiny joint effusion. No evidence of fracture or dislocation Reading Location: [id number] CC: Dr. Marcelo Mccullough MD Tool And Die Supervisor: Signed [facility] MR/BMS.BVSon 10-17-2024 MR/BMS.BVS [facility] [address] [place] [address]. [address] [place] [address] OFFICE VISIT Date of Service: 10/18/24 MR#: [id number] Acct: [id number] Name: IRWIN CORDERO Rep #: [id number] : 1940 Provider: MIRA Ray Age/Sex: 84/M Location: [facility] Status: Signed Intake Vital Signs 07/06/24 14:06 08/03/24 08:32 10/18/24 10:17 Height 5 ft 2 in 5 ft 2 in Weight: 146 lb BP 128/68 H Blood Pressure Location Lt radial Position Sitting Respiration 16 Pulse 66 Pulse Source Monitor Temp 98 F Temp Source Temporal Pulse Oximetry (%) 94 Oxygen Delivery Method room air Intake Visit Reasons: 3 M FU Is patient in pain?: Yes Allergies albuterol Allergy (Severe, Verified 08/03/24 08:35) Chest tightness/afib rvr digoxin Allergy (Intermediate, Verified 08/03/24 08:35) Dizziness, headache, fuzzy thoughts ragweed pollen Adverse Reaction (Intermediate, Verified 08/03/24 08:35) Nasal congestion Medications ???Medication ???Instructions ???Recorded ???Confirmed ???Type pantoprazole 40 mg tablet,delayed 40 mg PO DAILY stomach 01/26/20 0 10/18/24 History release acetaminophen 325 mg tablet 650 mg PO Q6H PRN Breakthrough 10/18/24 History (Tylenol) Pain, Mild levocetirizine 5 mg tablet 5 mg PO QHS 01/18/23 10/18/24 Hist ory ferrous sulfate 324 mg (65 mg 324 mg PO QDAY 03/17/24 10/18/24 H istory iron) tablet,delayed release amiodarone 200 mg tablet 100 mg (1/2 x 200 mg) PO QDAY #90 04/10/24 10/18/24 Rx tabs atorvastatin 20 mg tablet 20 mg PO QHS cholesterol 05/15/24 10/18/24 History balsalazide 750 mg capsule 2,250 mg PO TID stomach 05/15/24 0 10/18/24 History levothyroxine 25 mcg tablet 25 mcg PO QDAY 05/15/24 10/18/24 H istory mesalamine 1,000 mg rectal 1,000 mg [place] Q OTHER DAY 05/15/24 0 10/18/24 History suppository polyethylene glycol 3350 17 17 g PO QDAY PRN 05/15/24 10/18/24 History gram/dose oral powder (Miralax) ipratropium bromide 21 mcg (0.03 2 spray intranasal BID-TID PRN 04/1510/18/24 Rx %) nasal spray postnasal drainage #30 mL apixaban 2.5 mg tablet (Eliquis) 2.5 mg PO BID #180 tabs 08/03/24 0 10/18/24 Rx Have you fallen in the past year?: Yes [facility] Medical History History of DVT (deep vein thrombosis) Atherosclerosis of coronary artery of [place] heart without angina pectoris Overweight (BMI 25.0-29.9) Hypertension Coronary artery disease A-fib Paroxysmal atrial fibrillation Anemia New onset a-fib Heartburn Bronchitis PUD (peptic ulcer disease) Deep vein thrombosis of left lower extremity (2012) Essential (primary) hypertension DDD (degenerative disc disease) Non-ST elevation (NSTEMI) myocardial infarction (10/03/16) PND (post-nasal drip) Multiple allergies Cough Prostate enlargement Stomach ulcer GERD (gastroesophageal reflux disease) Glaucoma Skin cancer Unstable angina Hyperlipidemia Crohn disease Surgical History History of dental surgery (04/15/21) History of coronary artery stent placement (10/05/16) Previous back surgery H/O colonoscopy Family History Father Heart disease Mother CVA (cerebral vascular accident) Social History household members: spouse current occupation: 50 years ago Smoking Status: Former smoker second hand exposure: No alcohol intake: never substance use type: does not use HPI HPI HPI: IRWIN CORDERO, is a 84 M who presents to the office today for follow-up of his venous disease. Recall that he has known chronic DVT/vein wall thickening in his BLE; at last OV, he had an area of ulceration/weeping with pink/purple discoloration on his L medial calf and a similar but much smaller area of discoloration his R medial calf. At last OV, ordered velcro compression garments and had elected to defer venous reflux study at that time. He did receive the Extremit-Ease garments and used them for a time; however, notes they quickly became stretched out and not very helpful. He has been wearing other socks with light compression. He has been elevating his legs and avoiding prolonged idle sitting/standing. He has been applying a topical cream to the prior area of concern on the L medial calf which was prescribed by his title insurance examiner; he is not sure what type of cream it is but it has seemed to help. He does not have any current wounds/skin breakdown/weeping. He is not having any particularly bothersome symptoms and does not feel limited by his swelling at this time. ROS General General: Yes fatigue and weakness; No weight change, appetite, colon cancer or breast (more content not included)... [facility] CBC W/Diff, Automatedon PATH REV Reviewed [facility] Comment on above: Result Comment: SEE REPORT IN PATIENT'S EMR AMENDED REPORT 09/20/24 1202 PATH REV previously reported as: July Performed By: #### L 500.4050, L501.9520, L506.1000, L100.0100 #### [facility] [address] [place], [place], [address] Influenza virus A and B and SARS-CoV-2 (COVID-19) and Respiratory syncytial virus RNAOrdered By: Marcelo Mccullough on 09-08-2024 SARS-CoV-2 (COVID-19) RNA MADHAV+probe Ql (Unsp spec) [facility] M100.678on 09-08-2024 M100.678 SARS-CoV-2 (COVID 19 ) Negative INFLUENZA A Negative INFLUENZA B Negative RSV PCR Negative Normal [facility] Comment on above: Performed By: #### L 500.4050, L501.9520, L506.1000, L100.0100 #### [facility] [address] [place], [place], [address] Myoglobin, Serumon 5 Myoglobin, Ser 45 ng/mL Normal 28-72 [facility] Comment on above: Result Comment: Perf ormed at: CB - [facility] [address] [id number] Furniture Reproducer: Erick Ferreira PhD, Phone: [phone] Performed By: #### L 500.4050, L501.9520, L506.1000, L100.0100 #### [facility] [address] [place], [place], [address] Absolute lymphocyte countOrd ered By: Marcelo Mccullough on 09-05-2024 Lymphocytes Auto (Unsp spec) [#/Vol] 0.73 10*3/uL Low 0.83-4.51 [facility] Absolute neutrophil countOrd ered By: Marcelo Jamel on 09-05-2024 Neutrophils (Bld) [#/Vol] 6.1 10*3/uL 2.0-7.7 [facility] Anion gap in Serum or Plasma Ordered By: Marcelo Mccullough on 09-05-2024 Anion gap [Moles/Vol] 10 mmol/L 5-15 [facility] BUN/creatinine ratioOrdered By: Marcelo Mccullough on 09-05-2024 Urea nitrogen/Creatinine [Mass ratio] 14.4 mg/mg 10-20 [facility] Bilirubin, totalOrdered By: Marcelo Jamel on 09-05-2024 Bilirubin [Mass/Vol] 1.37 mg/dL High 0.00-1.30 [facility] Blood band neutrophil count as percentage of total leukocytesOrdered By: on 09-05-2024 Band form neutrophils/100 WBC (Bld) 3 % 0-5 [facility] Blood eosinophils/100 leukoc ytesOrdered By: on 09-05-2024 Eosinophils/100 WBC (Bld) 1 % 0-5 [facility] Blood lymphocytes/100 leukoc ytesOrdered By: on 09-05-2024 Lymphocytes/100 WBC (Bld) 9 % Low 19-41 [facility] Blood monocytes/100 leukocyt esOrdered By: Marcelo Jamel on 09-05-2024 Monocytes/100 WBC (Bld) 15 % High 0-10 [facility] Blood segmented neutrophils/ 100 leukocytesOrdered By: Marcelo Jamel on 09-05-2024 Segmented neutrophils/100 WBC (Bld) 72 % High 47-70 [facility] CPK Total, Creatine Kinaseon 09-05-2024 CPK TOTAL 56 U/L Normal 24-195 [facility] Comment on above: Performed By: #### L 500.4050, L501.9520, L506.1000, L100.0100 #### [facility] [address] [place] [address], [address] Carbon dioxide, total [Moles /volume] in Central venous bloodOrdered By: Marcelo Mccullough on 09-05-2024 CO2 [Moles/Vol] 25.6 mmol/L 21.0-32.0 [facility] Chloride assayOrdered By: Ayden Mccullough on 09-05-2024 Chloride [Moles/Vol] 104 mmol/L 98-108 [facility] Comprehensive Metabolic Prof ilon 09-05-2024 Albumin [Mass/Vol] 3.7 g/dL Normal 3.4-4.8 [facility] Comment on above: Performed By: #### L 500.4050, L501.9520, L506.1000, L100.0100 #### [facility] [address] [place], [address] Albumin/Globulin [Mass ratio] 1.2 {ratio} Normal 0.9-2.4 [facility] Comment on above: Performed By: #### L 500.4050, L501.9520, L506.1000, L100.0100 #### [facility] [address] [place], [address] ALK PHOS 58 U/L Normal 40-129 [facility] Comment on above: Performed By: #### L 500.4050, L501.9520, L506.1000, L100.0100 #### [facility] [address] [place], [address] ALT [Catalytic activity/Vol] U/L Normal <=46 [facility] Comment on above: Performed By: #### L 500.4050, L501.9520, L506.1000, L100.0100 #### [facility] [address] [place], [address] AST [Catalytic activity/Vol] 14 U/L Normal <=37 [facility] Comment on above: Performed By: #### L 500.4050, L501.9520, L506.1000, L100.0100 #### [facility] [address] [place], [address] Bilirubin [Mass/Vol] 1.37 mg/dL High 0.00-1.30 [facility] Comment on above: Performed By: #### L 500.4050, L501.9520, L506.1000, L100.0100 #### [facility] [address] [place], [address] BUN/CRE 14.4 RATIO Normal 10-20 [facility] Comment on above: Performed By: #### L 500.4050, L501.9520, L506.1000, L100.0100 #### [facility] [address] [place], [address] Calcium [Mass/Vol] 8.8 mg/dL Normal 7.6-11.0 [facility] Comment on above: Performed By: #### L 500.4050, L501.9520, L506.1000, L100.0100 #### [facility] [address] [place], [address] Chloride [Moles/Vol] 104 mmol/L Normal 98-108 [facility] Comment on above: Performed By: #### L 500.4050, L501.9520, L506.1000, L100.0100 #### [facility] [address] [place], [address] CO2 [Moles/Vol] 25.6 mmol/L Normal 21.0-32.0 [facility] Comment on above: Performed By: #### L 500.4050, L501.9520, L506.1000, L100.0100 #### [facility] [address] [place], [address] Creatinine [Mass/Vol] 1.10 mg/dL Normal 0.70-1.20 [facility] Comment on above: Performed By: #### L 500.4050, L501.9520, L506.1000, L100.0100 #### [facility] [address] [place], [address] GAP 10 Normal 5-15 [facility] Comment on above: Performed By: #### L 500.4050, L501.9520, L506.1000, L100.0100 #### [facility] [address] [place], [address] GFR/1.73 sq M.predicted among non-blacks MDRD (S/P/Bld) [Vol rate/Area] 65 mL/min/{1.73_m2} Normal >60 [facility] Comment on above: Result Comment: mL/m in/1.73m2 CKD-EPI Creatinine Equation (2020) Performed By: #### L 500.4050, L501.9520, L506.1000, L100.0100 #### [facility] [address] [place], [address] Globulin (S) [Mass/Vol] 3.1 g/dL Normal 2.2-4.2 [facility] Comment on above: Performed By: #### L 500.4050, L501.9520, L506.1000, L100.0100 #### [facility] [address] [place], [address] Glucose [Mass/Vol] 152 mg/dL High 70-99 [facility] Comment on above: Performed By: #### L 500.4050, L501.9520, L506.1000, L100.0100 #### [facility] [address] [place], [address] Potassium [Moles/Vol] 3.7 mmol/L Normal 3.3-5.1 [facility] Comment on above: Performed By: #### L 500.4050, L501.9520, L506.1000, L100.0100 #### [facility] [address] [place], [address] Sodium [Moles/Vol] 139 mmol/L Normal 133-145 [facility] Comment on above: Performed By: #### L 500.4050, L501.9520, L506.1000, L100.0100 #### [facility] [address] [place], [address] T PROT 6.8 g/dL Normal 5.9-8.4 [facility] Comment on above: Performed By: #### L 500.4050, L501.9520, L506.1000, L100.0100 #### [facility] [address] [place], [address] Urea nitrogen [Mass/Vol] 16 mg/dL Normal 4-19 [facility] Comment on above: Performed By: #### L 500.4050, L501.9520, L506.1000, L100.0100 #### [facility] [address] [place], [address] Erythrocyte distribution wid th ratioOrdered By: Marcelo Mccullough on 09-05-2024 Erythrocyte distribution width (RBC) [Ratio] 15.0 % High 11.6-14.6 [facility] Erythrocyte distribution wid th standard deviationOrdered By: Marcelo Mccullough on 09-05-2024 Erythrocyte distribution width (RBC) [Ratio] 54.4 fl High 35.1-43.9 [facility] Glomerular filtration rate ( GFR) estimation/1.73 sq m using serum, plasma, or whole bOrdered By: Marcelo Mccullough on 09-05-2024 GFR/1.73 sq M.predicted among non-blacks MDRD (S/P/Bld) [Vol rate/Area] 65 mL/min/{1.73_m2} >60 [facility] Comment on above: mL/min/1.73m2 CKD-EP I Creatinine Equation (2020) Hematocrit Auto (Bld) [Volum e fraction]Ordered By: Marcelo Mccullough on 09-05-2024 Hematocrit (Bld) [Volume fraction] 38.7 % Low 40-54 [facility] Hemoglobin measurementOrdere d By: Marcelo Mccullough on 09-05-2024 Hemoglobin (Bld) [Mass/Vol] 12.7 g/dL Low 13.0-16.5 [facility] L501.4021on 09-05-2024 Trop T High Sen 20 ng/L Normal <=22 [facility] Comment on above: Performed By: #### L 500.4050, L501.9520, L506.1000, L100.0100 #### [facility] [address] [place], [address] Laboratory - Chemistry and C hemistry - challengeOrdered By: Marcelo Mccullough on 09-05-2024 AST [Catalytic activity/Vol] 14 U/L <38 [facility] MCV (mean corpuscular volume ) determinationOrdered By: Marcelo Mccullough on 09-05-2024 MCV (RBC) [Entitic vol] 97.7 fL High 80-94 [facility] Mean corpuscular hemoglobin (MCH) determinationOrdered By: Marcelo Mccullough on 09-05-2024 MCH (RBC) [Entitic mass] 32.1 pg High 27.0-32.0 [facility] Mean corpuscular hemoglobin concentration (MCHC) determinationOrdered By: Marcelo Mccullough on 09-05-2024 MCHC (RBC) [Mass/Vol] 32.8 g/dL 32-36 [facility] Mean platelet volume determi nationOrdered By: Marcelo Mccullough on 09-05-2024 Platelet mean volume (Bld) [Entitic vol] 8.9 fL 6.2-12.0 [facility] Platelet countOrdered By: Ayden Mccullough on 09-05-2024 Platelets (Bld) [#/Vol] 279 10*3/uL 150-450 [facility] Potassium measurement (mass/ volume)Ordered By: Marcelo Mccullough on 09-05-2024 Potassium (Unsp spec) [Mass/Vol] 3.7 mmol/L 3.3-5.1 [facility] RBC Auto (Bld) [#/Vol]Ordere d By: Marcelo Mccullough on 09-05-2024 RBC (Bld) [#/Vol] 3.96 10*6/uL Low 4.6-6.2 [facility] Review by pathologistOrdered By: Marcelo Mccullough on 09-05-2024 Pathologist review Alexandre (Unsp spec) [Interp] Symone mcintosh [facility] Pathologist review Alexandre (Unsp spec) [Interp] Reviewed [facility] Comment on above: Previous reported re sult: Symone mcintosh Edited by: MATTHEW on 09/20/24:1202SEE REPORT IN PATIENT'S EMR AMENDED REPORT 09/20/24 1202 PATH REV previously reported as: Symone mcintosh Serum creatinine measurement (mass/volume)Ordered By: Marcelo Mccullough on 09-05-2024 Creatinine [Mass/Vol] 1.10 mg/dL 0.70-1.20 [facility] Serum globulin measurementOr dered By: Marcelo Mccullough on 09-05-2024 Globulin (S) [Mass/Vol] 3.1 g/dL 2.2-4.2 [facility] Serum glucose measurement (m ass/volume)Ordered By: Marcelo Mccullough on 09-05-2024 Glucose [Mass/Vol] 152 mg/dL High 70-99 [facility] Serum myoglobin measurementO rdered By: Marcelo Mccullough on 09-05-2024 Myoglobin [Mass/Vol] 45 ng/mL 28-72 [facility] Comment on above: Performed at: [address] [id number] Director: Erick Ferreira PhD, Phone: [phone] Serum or plasma alanine [place] otransferase (ALT) measurementOrdered By: Marcelo Mccullough on 09-05-2024 ALT [Catalytic activity/Vol] U/L <47 [facility] Serum or plasma albumin josh urement (mass/volume)Ordered By: Marcelo Mccullough 09-05-2024 Albumin [Mass/Vol] 3.7 g/dL 3.4-4.8 [facility] Serum or plasma albumin/glob ulin mass ratioOrdered By: Marcelo Mccullough 09-05-2024 Albumin/Globulin [Mass ratio] 1.2 {ratio} 0.9-2.4 [facility] Serum or plasma alkaline hank sphatase measurementOrdered By: Marcelo Mccullough 09-05-2024 ALP [Catalytic activity/Vol] 58 U/L 40-129 [facility] Serum or plasma calcium josh urement (mass/volume)Ordered By: Marcelo Mccullough 09-05-2024 Calcium [Mass/Vol] 8.8 mg/dL 7.6-11.0 [facility] Serum or plasma creatine kin ase activityOrdered By: Marcelo Mccullough 09-05-2024 CK [Catalytic activity/Vol] 56 U/L 24-195 [facility] Serum or plasma urea nitroge n measurement (mass/volume)Ordered By: Marcelo Mccullough 09-05-2024 Urea nitrogen [Mass/Vol] 16 mg/dL 4-19 [facility] Sodium levelOrdered By: Marcelo Mccullough on 09-05-2024 Sodium [Moles/Vol] 139 mmol/L 133-145 [facility] TSH DL <= 0.005 mIU/L QnOrde red By: Marcelo Mccullough on 09-05-2024 TSH Qn 1.260 uIU/mL 0.300-4.200 [facility] Thyroid Stim Hormone (TSH)on 09-05-2024 TSH 1.260 uIU/mL Normal 0.300-4.200 [facility] Comment on above: Performed By: #### L 500.4050, L501.9520, L506.1000, L100.0100 #### [facility] [address] [place], [place], [address] Total cell countOrdered By: Marcelo Mccullough on 09-05-2024 Cells counted Molgen (Bld/Tiss) [#] 100 MANUAL DIFF [facility] Total proteinOrdered By: Marcelo Mccullough on 09-05-2024 Protein [Mass/Vol] 6.8 g/dL 5.9-8.4 [facility] Troponin T.cardiac [Mass/vol ume] in Serum or Plasma by High sensitivity methodOrdered By: Marcelo Mccullough on 09-05-2024 Troponin T.cardiac High sensitivity method [Mass/Vol] 20 ng/L <22 [facility] Vitamin D,25 Hydroxyon 09-05 Vitamin D 25-OH 20.4 ng/mL Low 30-100 [facility] Comment on above: Result Comment: Patel min D Status Deficiency: <20 ng/mL (50nmol/L) Insufficiency: 20-30 ng/mL (50-75 nmol/L) Sufficiency: 30-100 ng/mL (75-250 nmol/L) Toxicity: >100 ng/mL (>250 nmol/L) Performed By: #### L 500.4050, L501.9520, L506.1000, L100.0100 #### [facility] [address] [place], [address] White blood cell (WBC) count Ordered By: Marcelo Mccullough on 09-05-2024 WBC (Bld) [#/Vol] 8.1 10*3/uL 4.4-11.0 [facility] Chest WITH Contraston 2024 Chest WITH Contrast [facility] [address] [place], [place] [address] Chest WITH Contrast MR#: [id number] Acct: [id number] Name: IRWIN CORDERO Rep #: [id number] : 1940 M 84 From: Jayson hernandez MD PCP: Dr. Marcelo Mccullough MD Status: REG CLI Study: Chest WITH Contrast Date of Exam: 08/31/24 Exam# [id number] Ordering Dr: Marcelo Mccullough MD PROCEDURE: CHEST WITH CONTRAST 08/31/2024 REASON FOR EXAM: COUGH TECHNIQUE: Prone and supine chest CT with intravenous contrast, high resolution CT (HRCT) protocol. Coronal and Sagittal reconstruction series were provided. CONTRAST: Isovue-300 VOLUME: 100 mL One or more dose reduction techniques were used (e.g., Automated exposure control, adjustment of the mA and/or kV according to patient size, use of iterative reconstruction technique). RADIATION DOSE SUMMARY: CTDlvol: 10.35 mGy DLP: 272.46 mGycm COMPARISON: Prior chest radiograph dated August 04, 2024. FINDINGS: Hardware: None Lymph nodes: No suspicious lymph nodes are seen. Heart and Vasculature: Normal heart size. No pericardial effusion. Atherosclerotic calcifications of the thoracic aorta. Pulmonary arteries are unremarkable. Coronary artery calcification. Lungs and Airways: Scarring at the lung bases as well as a minimal scarring and volume loss in the lingular segment of the left upper lobe. Pleura: No pleural effusion Upper Abdomen: Unremarkable Bones: Degenerative changes of the thoracic spine. CT/Chest WITH Contrast IMPRESSION: Coronary artery calcification (CAC) is is present Hyperinflation with bibasilar scarring as well as scarring in the lingula segment of the left upper Reading Location: [facility] CC: Dr. Marcelo Mccullough MD Tool And Die Supervisor: Signed Normal [facility] Cardiology Visit Reporton 05 -15-2025 Cardiology Visit Report [facility] [address] [place] [address] OFFICE VISIT Date of Service: 08/03/24 MR#: [id number] Acct: [id number] Name: IRWIN CORDERO Rep #: [id number] : 1940 Provider: Dr. Tyson Miller MD Age/Sex: 84/M Location: [facility] Status: Signed HPI HPI History of Present Illness Details: Mr. Cordero is a pleasant 84-year-old man with a history of hypertension, hypercholesterolemia, coronary artery disease who presented to [facility] on 10/03/16 with acute coronary syndrome. Patient had a minor troponin release of 0.43 maximum, was taken to the [facility] on 10/05/16 which showed normal LV size and function, a questionable lesion in the proximal RCA, and nonobstructive coronary disease of the left circumflex, PDA and LAD. The patient underwent successful angioplasty and drug-eluting stenting of the proximal RCA. The patient was found to have questionable disease of his LAD and underwent a stress echocardiogram on 10/30/16 which was negative for inducible ischemia of the anterior wall. 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 He did undergo a stress echocardiogram in July 2018 which was apparently normal. He underwent repeat stress test on account of shortness of breath on 02/12/2020 that was negative for ischemia and showed a preserved ejection fraction. Pt was seen in the Er on 02/21/2022 for chest pain. EKG demonstrated new onset of Afib with RVR. He did concert to SR. He was admitted for observation. In the ER he was started on a cardizem drip but this was discontinued d/t hypotension. His metoprolol was restarted. He was already on Eliquis for hx of DVT. Echocardiogram demonstrated an EF of 55%. His left and right atrium are severely enlarged. Troponins were negative. He presented to the Emergency Department on 02/28/2024 for chest pain. He was noted to be in atrial fibrillation with RVR. He received IV Cardizem and IV metoprolol. He proceeded with a cardioversion x 3 that was unsuccessful. On account of chest pain, he underwent a heart catheterization that showed patent previously placed stents in the RCA. Echocardiogram on 02/28/2024 showed an ejection fraction of 55% and normal left and right atrium size. He converted to sinus rhythm prior to discharge. His Eliquis was placed on hold on account of GI bleeding. He was noted be rhinovirus positive and his antibiotic was discontinued. He was seen with director of land, Dr. Wadsworth on 04/19/2024. Rhythm controlling strategies and stroke protection was reviewed in detail. Overall recommendation was to continue with low-dose amiodarone to see how he does. If rectal bleeding is considered to be severe which at this time it is not the plan is to resume him on the Eliquis. He denies palpitations. He acknowledges bilateral lower extreme edema that is unchanged from previous. He acknowledges shortness of breath activity that his daughter feels is worse than previous and patient feels is unchanged from previous. He denies shortness of breath at rest, orthopnea, cough, or PND. He acknowledges lightheadedness and weakness that he feels to be worsening since last office visit. He states worsening fatigue since last office visit. Intake Vital Signs 06/04/23 08:55 07/06/24 14:06 08/03/24 08:32 Height 5 ft 2 in 5 ft 2 in 5 ft 2 in Weight: 147 lb BMI 26.9 BP 110/65 Blood Pressure Location Lt brachial Position Sitting Respiration 16 Pulse 66 Pulse Source Monitor Intake Visit Reasons: 1 Y FU Podiatry Assistant Required: No Accompanied by: Daughter Is patient in pain?: No Allergies albuterol Allergy (Severe, Verified 08/03/24 08:35) Chest tightness/afib rvr digoxin Allergy (Intermediate, Verified 08/03/24 08:35) Dizziness, headache, fuzzy thoughts ragweed pollen Adverse Reaction (Intermediate, Verified 08/03/24 08:35) Nasal congestion Medications ???Medication ???Instructions ???Recorded ???Confirmed ???Type pantoprazole 40 mg tablet,delayed 40 mg PO DAILY stomach 01/26/20 0 08/03/24 History release acetaminophen 325 mg tablet 650 mg PO Q6H PRN Breakthrough 08/03/24 History (Tylenol) Pain, Mild levocetirizine 5 mg tablet 5 mg PO QHS 01/18/23 08/03/24 Hist ory vit C 250 mg-vit E 90 mg-zinc 40 1 tab PO BID 02/28/24 08/03/24 His tory mg-copper 1 [id number] capsule (PreserVision AREDS-2) aspirin 81 mg chewable tablet 81 mg PO BREAKFAST #0 tabs 4 08/03/24 Rx ferrous sulfate 324 mg (65 mg 324 mg PO QDAY 03/17/24 08/03/24 H istory iron) tablet,delayed release amiodarone 200 mg tablet 100 mg (1/2 x 200 mg) PO QDAY #90 04/10/24 08/03/24 Rx tabs atorvastatin 20 mg tablet 20 mg PO QHS cholesterol 05/15/24 08/03/24 History balsalazide 750 mg capsule 2,[address] (more content not included)... Normal [facility] Chest PA and Lateralon 08-03 Chest PA and Lateral [facility] [address] [place] [id number] Chest PA and Lateral MR#: [id number] Acct: [id number] Name: IRWIN CORDERO Rep #: [id number] : 1940 M 84 From: Andrew Ortiz MD PCP: Dr. Marcelo Mcclulough MD Status: [facility] Study: Chest PA and Lateral Date of Exam: 08/03/24 Exam# [id number] Ordering Dr: Marcelo Mccullough MD PROCEDURE: CHEST PA AND LATERAL 08/03/2024 REASON FOR EXAM: WHEEZING TECHNIQUE: Frontal and lateral views of the chest. COMPARISON: 07/06/2024 FINDINGS: The lungs appear clear. Hyperinflation again noted. Mild atelectasis or scarring at the bases appears unchanged. No pleural effusion. Pulmonary vascularity appears within limits. The cardiac and mediastinal contours appear within limits. RAD/Chest PA and Lateral IMPRESSION: No evidence of acute disease. Reading Location: [facility] CC: Dr. Marcelo Mccullough MD Tool And Die Supervisor: Signed Normal [facility] Influenza virus A and B and SARS-CoV-2 (COVID-19) and Respiratory syncytial virus RNAOrdered By: Marcelo Jamel on 08-03-2024 SARS-CoV-2 (COVID-19) RNA MADHAV+probe Ql (Unsp spec) [facility] M100.678on 08-03-2024 M100.678 Pending SARS-CoV-2 (COVID 19) Negative INFLUENZA A Negative INFLUENZA B Negative RSV PCR Negative Normal [facility] Comment on above: Performed By: #### L 500.4050, L501.9520, L506.1000, L100.0100 #### [facility] [address] [place], [address] No Panel InformationOrdered By: Terrell Adam on 07-20-2024 POC Nasal Swab RSV Negative [facility] Influenza Types A,B Rapid (Clinic) Negative [facility] POC SARS CoV-2 Antigen Negative [facility] Urgent Care Visit Reporton 0 07-20-2024 Urgent Care Visit Report [facility] [address], [address] [place] [address] OFFICE VISIT Date of Service: 07/20/24 MR#: [id number] Acct: [id number] Name: IRWIN CORDERO Rep #: [id number] : 1940 Provider: MIRA Gordon Age/Sex: 84/M Location: [facility] Status: Signed Intake Vital Signs 07/06/24 14:06 07/20/24 16:31 Height 5 ft 2 in BP 100/56 L Position Sitting Pulse 66 Temp 98.4 F Temp Source Oral Pulse Oximetry (%) 99 Oxygen Delivery Method room air Intake Visit Reasons: SORE THROAT, CONGESTION Accompanied by: Daughter Allergies albuterol Allergy (Severe, Verified 07/06/24 14:06) Chest tightness/afib rvr digoxin Allergy (Intermediate, Verified 07/06/24 14:06) Dizziness, headache, fuzzy thoughts ragweed pollen Adverse Reaction (Intermediate, Verified 07/06/24 14:06) Nasal congestion Have you fallen in the past year?: Yes Nurse's Note: Patient has ST, congestion,RN,head hurts, coughing and mucus. Patient states it started yesteraday. PFSH Medical History History of DVT (deep vein thrombosis) Atherosclerosis of coronary artery of [place] heart without angina pectoris Overweight (BMI 25.0-29.9) Hypertension Coronary artery disease A-fib Paroxysmal atrial fibrillation Anemia New onset a-fib Heartburn Bronchitis PUD (peptic ulcer disease) Deep vein thrombosis of left lower extremity (2012) Essential (primary) hypertension DDD (degenerative disc disease) Non-ST elevation (NSTEMI) myocardial infarction (10/03/16) PND (post-nasal drip) Multiple allergies Cough Prostate enlargement Stomach ulcer GERD (gastroesophageal reflux disease) Glaucoma Skin cancer Unstable angina Hyperlipidemia Crohn disease Surgical History History of dental surgery (04/15/21) History of coronary artery stent placement (10/05/16) Previous back surgery H/O colonoscopy Family History Father Heart disease Mother CVA (cerebral vascular accident) Social History household members: spouse current occupation: 50 years ago Smoking Status: Former smoker second hand exposure: No alcohol intake: never substance use type: does not use HPI HPI Details: IRWIN CORDERO, is a 84 M who presents to the office today for complaint sore throat, congestion, runny nose and cough along with shortness of breath. Patient does state having a history of shortness of breath however this is slightly worse. He states this started 2 days ago. No fever, chills or sweats. No vomiting or diarrhea. No loss of taste or smell. No other associated symptoms or alleviating/aggravatin g factors. ROS Const Constitutional: No other (6 system ROS completed with pertinent findings in the HPI otherwise normal.) Exam Const General: cooperative and well developed [facility] Head: normal to inspection and atraumatic Ears: hearing grossly normal bilaterally Nose: nasal discharge clear Face and sinus: normal facial exam Mouth: oral mucosae normal Throat: abnormal tonsil bilaterally hypertrophy 1+ Resp Effort Inspection: normal respiratory effort and no audible wheezes Auscultation: Bilateral: Diminished Lung Sounds Cardio Rate: regular rate Rhythm: regular rhythm Neuro General: patient alert Psych Appearance: grossly normal Mental Status: mental status grossly normal Results POC SARS AG POC SARS AG Negative Last Edit by Stayc Pearl on 07/20/24 16:41 POC FLU A B Office Flu A B Negative FLU A B Last Edit by Stacy Pearl on 07/20/24 16:41 POC RAPID RSV POC RAPID RSV Negative Last Edit by Stacy Pearl on 07/20/24 16:44 Coding Level of Care Code Off vis,new,level 4 Diagnoses Acute bronchitis J20.9 Assessment and Plan Assessment and Plan (1) Acute bronchitis: Status: Acute Plan: Patient tested negative for influenza, COVID and RSV in the office today. Doxycycline, Medrol Dosepak and Atrovent as prescribed today. Encouraged to get plenty of rest, drink lots of clear liquids, and use Tylenol or Ibuprofen (unless contraindicated) for fever and comfort. Patient also educated on other symptomatic management techniques. To be seen in 7-10 days if no improvement; sooner if worsening of symptoms. Patient advised of potential red flags and when appropriate to report to the ED. Patient verbalized understanding and agreement with all the above. Orders: Orders POC FLU A B Today R05.9 - Cough, unspecified POC Rapid RSV ([place]) Today POC Rapid SARS Antigen Today Medications: New doxycycline monohydrate 100 mg PO BID 10 days 20 caps 0RF methylprednisolone (Medrol (Jaxon)) 4 (more content not included)... Normal [facility] MR/BMSVic 07-19-2024 MR/BMSNETTE [facility] [address] [place] [address]. [address] [place] [address] OFFICE VISIT Date of Service: 07/19/24 MR#: [id number] Acct: [id number] Name: IRWIN CORDERO Jesusita Rep #: [id number] : 1940 Provider: MIRA Ray Age/Sex: 84/M Location: [facility] Status: Signed Intake Vital Signs 05/15/24 09:44 07/06/24 14:06 07/19/24 09:28 Height 5 ft 2 in 5 ft 2 in Weight: 150 lb BP 104/51 L Blood Pressure Location Rt brachial Position Sitting Respiration 17 Pulse 70 Pulse Source Monitor Temp 98.4 F Temp Source Temporal Pulse Oximetry (%) 92 Oxygen Delivery Method room air Intake Visit Reasons: Leg Swelling, mass lump bilateral Chief Complaint: F/U Doppler Leg Swelling Podiatry Assistant Required: No Is patient in pain?: No Allergies albuterol Allergy (Severe, Verified 07/06/24 14:06) Chest tightness/afib rvr digoxin Allergy (Intermediate, Verified 07/06/24 14:06) Dizziness, headache, fuzzy thoughts ragweed pollen Adverse Reaction (Intermediate, Verified 07/06/24 14:06) Nasal congestion Medications ???Medication ???Instructions ???Recorded ???Confirmed ???Type pantoprazole 40 mg tablet,delayed 40 mg PO DAILY stomach 01/26/20 0 07/19/24 History release acetaminophen 325 mg tablet 650 mg PO Q6H PRN Breakthrough 07/19/24 History (Tylenol) Pain, Mild levocetirizine 5 mg tablet 5 mg PO QHS 01/18/23 07/19/24 Hist ory vit C 250 mg-vit E 90 mg-zinc 40 1 tab PO BID 02/28/24 07/19/24 His tory mg-copper 1 nl-txoxdk-mmhyva capsule (PreserVision AREDS-2) aspirin 81 mg chewable tablet 81 mg PO BREAKFAST #0 tabs 4 07/19/24 Rx ferrous sulfate 324 mg (65 mg 324 mg PO QDAY 03/17/24 07/19/24 H istory iron) tablet,delayed release amiodarone 200 mg tablet 100 mg (1/2 x 200 mg) PO QDAY #90 04/10/24 07/19/24 Rx tabs atorvastatin 20 mg tablet 20 mg PO QHS cholesterol 05/15/24 07/19/24 History balsalazide 750 mg capsule 2,250 mg PO TID stomach 05/15/24 0 07/19/24 History calcium carbonate (Tums) 200 mg PO BID 05/15/24 07/19/24 Hi story guaifenesin 100 mg/5 mL oral liquid 200 mg PO Q4H PRN 05/15/24 04/ History levothyroxine 25 mcg tablet 25 mcg PO QDAY 05/15/24 07/19/24 H istory mesalamine 1,000 mg rectal 1,000 mg [place] Q OTHER DAY 05/15/24 0 4/30/25 History suppository polyethylene glycol 3350 17 17 g PO QDAY PRN 05/15/24 07/19/24 History gram/dose oral powder (Miralax) Have you fallen in the past year?: Yes PFSH Medical History History of DVT (deep vein thrombosis) Atherosclerosis of coronary artery of [place] heart without angina pectoris Overweight (BMI 25.0-29.9) Hypertension Coronary artery disease A-fib Paroxysmal atrial fibrillation Anemia New onset a-fib Heartburn Bronchitis PUD (peptic ulcer disease) Deep vein thrombosis of left lower extremity (2012) Essential (primary) hypertension DDD (degenerative disc disease) Non-ST elevation (NSTEMI) myocardial infarction (10/03/16) PND (post-nasal drip) Multiple allergies Cough Prostate enlargement Stomach ulcer GERD (gastroesophageal reflux disease) Glaucoma Skin cancer Unstable angina Hyperlipidemia Crohn disease Surgical History History of dental surgery (04/15/21) History of coronary artery stent placement (10/05/16) Previous back surgery H/O colonoscopy Family History Father Heart disease Mother CVA (cerebral vascular accident) Social History household members: spouse current occupation: 50 years ago Smoking Status: Former smoker second hand exposure: No alcohol intake: never substance use type: does not use HPI HPI HPI: IRWIN CORDERO, is a 84 M who presents to the office today for evaluation of BLE edema as referred by his PCP Dr. Mccullough. He had recent venous duplex which demonstrated vein wall thickening R CFV and FV, chronic DVT R gastrocnemius vein, and chronic DVT of the L CFV, FV, popliteal vein, TP trunk vein; there was no acute DVT and no reflux study was included. He does recall a history of LLE DVT following spine surgery in 2000; he does not recall any DVT in the RLE. No other known events of VTE. He reports he has noticed increased BLE edema over the last few months and it has been fairly persistent. He does see some improvement when he uses JESSICA wraps for compression and with leg elevation. Prior to the last few months, he did not notice much swelling. He also has an area of ulceration/weeping with pink/purple discoloration on his L medial calf and a similar but much smaller area of discoloration his R medial calf; he has (more content not included)... Normal [facility] Urine Cultureon 07-08-2024 URC Below infection leve l. Mixed Gram Positive Organisms Basehor Count 1000-10,000 MIXC Mixed contaminants. Submit a new specimen if indicated. Normal [facility] Comment on above: Performed By: #### M 100.2200 ####[facility] [address] [place], [address] 12 Lead EKGon 07-06-2024 12 Lead EKG [facility] Cardiovascular Services [address] [facility] [place] [address] 12 Lead EKG 07/06/24 1434 MR#: [id number] Acct: [id number] Name: IRWIN CORDERO Rep #: [id number] : 1940 84 From: Beni Smith MD Attending Dr: Status: DEP ER Ordering Dr: Amado Anderson MD Date: 07/06/24 Location: ED Sex: M C Admitted: Test Reason : Blood Pressure : */* mmHG Vent. Rate : 65 BPM Atrial Rate : 65 BPM P-R Int : 168 ms QRS Dur : 92 ms QT Int : 440 ms P-R-T Axes : 60 -11 48 degrees QTcB Int : 457 ms Normal sinus rhythm Normal ECG Confirmed by Beni Smith ([id number]), script editor NEERAJ MEJIAS ([id number]) on 07/07/2024 12:44:11 PM Referred By: Amado Anderson Confirmed By: Beni Smith 07/07/24 1244 Date Beni Smith MD CC: Dr. Amado Anderson MD; Dr. Marcelo Mccullough MD Signed Normal [facility] Absolute lymphocyte countOrd ered By: Amado Anderson on 07-06-2024 Lymphocytes Auto (Unsp spec) [#/Vol] 1.15 10*3/uL 0.83-4.51 [facility] Absolute neutrophil countOrd ered By: Amado Anderson on 07-06-2024 Neutrophils (Bld) [#/Vol] 2.2 10*3/uL 2.0-7.7 [facility] Anion gap in Serum or Plasma Ordered By: Amado Anderson on 07-06-2024 Anion gap [Moles/Vol] 9 mmol/L 5-15 [facility] Automated lymphocyte count a s percentage of total leukocytesOrdered By: Amado Anderson on 07-06-2024 Lymphocytes/100 WBC Auto (Unsp spec) 23.2 % 19- [facility] BUN/creatinine ratioOrdered By: Amado Anderson on 07-06-2024 Urea nitrogen/Creatinine [Mass ratio] 14.6 mg/mg 10- [facility] Basophil percentageOrdered B y: Amado Anderson on 07-06-2024 Basophils/100 WBC (Bld) 0.6 % 0-1 [facility] Bilirubin Test strip Ql (U)O rdered By: Amado Anderson on 07-06-2024 Bilirubin Ql (U) Negative Negative [facility] Bilirubin, totalOrdered By: Amado Anderson on 07-06-2024 Bilirubin [Mass/Vol] 0.80 mg/dL 0.00-1.30 [facility] CBC W/Diff, Automatedon 06-20 Absolute Lymph 1.15 X10 3/uL Normal 0.83-4.51 [facility] Comment on above: Performed By: #### L 100.0100, L503.7505, L500.4050 ####[facility] [address] [place], [address] Absolute Neut 2.2 X10 3/uL Normal 2.0-7.7 [facility] Comment on above: Performed By: #### L 100.0100, L503.7505, L500.4050 ####[facility] [address] [place], [address] Basophils/100 WBC (Bld) 0.6 % Normal 0-1 [facility] Comment on above: Performed By: #### L 100.0100, L503.7505, L500.4050 ####[facility] [address] [place], [address] Eosinophils/100 WBC (Bld) 7.9 % High 0-5 [facility] Comment on above: Performed By: #### L 100.0100, L503.7505, L500.4050 ####[facility] [address] [place], [address] Erythrocyte distribution width (RBC) [Ratio] 14.9 % High 11.6-14.6 [facility] Comment on above: Performed By: #### L 100.0100, L503.7505, L500.4050 ####[facility] [address] [place], [address] Hematocrit (Bld) [Volume fraction] 36.9 % Low 40-54 [facility] Comment on above: Performed By: #### L 100.0100, L503.7505, L500.4050 ####[facility] [address] [place], [address] Hemoglobin (Bld) [Mass/Vol] 12.4 g/dL Low 13.0-16.5 [facility] Comment on above: Performed By: #### L 100.0100, L503.7505, L500.4050 ####[facility] [address] [place], [address] IG% 1.000 High 0.0-0.9 [facility] Comment on above: Result Comment: IG% - Immature Granulocytes (promyelocytes, myelocytes and metamyelocytes) > 1% indicates that a LEFT SHIFT is Present. Performed By: #### L 100.0100, L503.7505, L500.4050 ####[facility] [address] [place], [address] Lymphocytes/100 WBC (Bld) 23.2 % Normal 19-41 [facility] Comment on above: Performed By: #### L 100.0100, L503.7505, L500.4050 ####[facility] [address] [place], [address] MCH (RBC) [Entitic mass] 32.5 pg High 27.0-32.0 [facility] Comment on above: Performed By: #### L 100.0100, L503.7505, L500.4050 ####[facility] [address] [place], [address] MCHC (RBC) [Mass/Vol] 33.6 g/dL Normal 32-36 [facility] Comment on above: Performed By: #### L 100.0100, L503.7505, L500.4050 ####[facility] [address] [place], [address] MCV (RBC) [Entitic vol] 96.9 fL High 80-94 [facility] Comment on above: Performed By: #### L 100.0100, L503.7505, L500.4050 ####[facility] [address] [place], [address] Monocytes/100 WBC (Bld) 23.6 % High 0-10 [facility] Comment on above: Performed By: #### L 100.0100, L503.7505, L500.4050 ####[facility] [address] [place], [address] Neutrophils/100 WBC (Bld) 43.7 % Low 47-70 [facility] Comment on above: Performed By: #### L 100.0100, L503.7505, L500.4050 ####[facility] [address] [place], [address] Nucleated RBC (Bld) [#/Vol] 0 10*3/uL Normal 0-5 [facility] Comment on above: Performed By: #### L 100.0100, L503.7505, L500.4050 ####[facility] [address] [place], [address] Platelet mean volume (Bld) [Entitic vol] 9.3 fL Normal 6.2-12.0 [facility] Comment on above: Performed By: #### L 100.0100, L503.7505, L500.4050 ####[facility] [address] [place], [address] Platelets (Bld) [#/Vol] 262 10*3/uL Normal 150-450 [facility] Comment on above: Performed By: #### L 100.0100, L503.7505, L500.4050 ####[facility] [address] [place], [address] RBC (Bld) [#/Vol] 3.81 10*6/uL Low 4.6-6.2 [facility] Comment on above: Performed By: #### L 100.0100, L503.7505, L500.4050 ####[facility] [address] [place], [address] RDW SD 52.6 fl High 35.1-43.9 [facility] Comment on above: Performed By: #### L 100.0100, L503.7505, L500.4050 ####[facility] [address] [place], [address] WBC (Bld) [#/Vol] 5.0 10*3/uL Normal 4.4-11.0 [facility] Comment on above: Performed By: #### L 100.0100, L503.7505, L500.4050 ####[facility] [address] [place], [address] Carbon dioxide, total [Moles /volume] in Central venous bloodOrdered By: Amado Anderson on 07-06-2024 CO2 [Moles/Vol] 24.9 mmol/L 21.0-32.0 [facility] Chest 1 View (Portable)on Chest 1 View (Portable) [facility] Imaging Services [address] [place], [place] [id number] Chest 1 View (Portable) MR#: [id number] Acct: [id number] Name: IRWIN CORDERO Rep #: [id number] : 1940 M 84 From: Tyron Velazquez MD PCP: Dr. Marcelo Mccullough MD Status: REG ER Study: Chest 1 View (Portable) Date of Exam: 07/06/24 Exam# [id number] Ordering Dr: Amado Anderson MD PROCEDURE: CHEST 1 VIEW (PORTABLE) 07/06/2024 REASON FOR EXAM: SHORTNESS OF BREATH TECHNIQUE: Frontal view of the chest. COMPARISON: None FINDINGS: Heart: The heart size is normal. Lungs: Right lung base atelectasis. No focal consolidation or large pleural effusion. RAD/Chest 1 View (Portable) IMPRESSION: Right lung base atelectasis. Reading [facility] CC: Dr. Amado Anderson MD; Dr. Marcelo Mccullough MD Tool And Die Supervisor: Signed Normal [facility] Chloride assayOrdered By: Ced Anderson on 07-06-2024 Chloride [Moles/Vol] 106 mmol/L 98-108 [facility] Comprehensive Metabolic Prof ilon 07-06-2024 Albumin [Mass/Vol] 3.8 g/dL Normal 3.4-4.8 [facility] Comment on above: Performed By: #### L 100.0100, L503.7505, L500.4050 ####[facility] [address] [place], [place], [id number] Albumin/Globulin [Mass ratio] 1.3 {ratio} Normal 0.9-2.4 [facility] Comment on above: Performed By: #### L 100.0100, L503.7505, L500.4050 ####[facility] [address] [place], [address] ALK PHOS 70 U/L Normal 40-129 [facility] Comment on above: Performed By: #### L 100.0100, L503.7505, L500.4050 ####[facility] [address] [place], [address] ALT [Catalytic activity/Vol] 10 U/L Normal <=46 [facility] Comment on above: Performed By: #### L 100.0100, L503.7505, L500.4050 ####[facility] [address] [place], [address] AST [Catalytic activity/Vol] 26 U/L Normal <=37 [facility] Comment on above: Performed By: #### L 100.0100, L503.7505, L500.4050 ####[facility] [address] [place], [address] Bilirubin [Mass/Vol] 0.80 mg/dL Normal 0.00-1.30 [facility] Comment on above: Performed By: #### L 100.0100, L503.7505, L500.4050 ####[facility] [address] [place], [address] BUN/CRE 14.6 RATIO Normal 10-20 [facility] Comment on above: Performed By: #### L 100.0100, L503.7505, L500.4050 ####[facility] [address] [place], [address] Calcium [Mass/Vol] 8.6 mg/dL Normal 7.6-11.0 [facility] Comment on above: Performed By: #### L 100.0100, L503.7505, L500.4050 ####[facility] [address] [place], [address] Chloride [Moles/Vol] 106 mmol/L Normal 98-108 [facility] Comment on above: Performed By: #### L 100.0100, L503.7505, L500.4050 ####[facility] [address] [place], [address] CO2 [Moles/Vol] 24.9 mmol/L Normal 21.0-32.0 [facility] Comment on above: Performed By: #### L 100.0100, L503.7505, L500.4050 ####[facility] [address] [place], [address] Creatinine [Mass/Vol] 0.88 mg/dL Normal 0.70-1.20 [facility] Comment on above: Performed By: #### L 100.0100, L503.7505, L500.4050 ####[facility] [address] [place], [address] GAP 9 Normal 5-15 [facility] Comment on above: Performed By: #### L 100.0100, L503.7505, L500.4050 ####[facility] [address] [place], [address] GFR/1.73 sq M.predicted among non-blacks MDRD (S/P/Bld) [Vol rate/Area] 84 mL/min/{1.73_m2} Normal >60 [facility] Comment on above: Result Comment: mL/m in/1.73m2 CKD-EPI Creatinine Equation (2020) Performed By: #### L 100.0100, L503.7505, L500.4050 ####[facility] [address] [place], [address] Globulin (S) [Mass/Vol] 2.9 g/dL Normal 2.2-4.2 [facility] Comment on above: Performed By: #### L 100.0100, L503.7505, L500.4050 ####[facility] [address] [place], [address] Glucose [Mass/Vol] 102 mg/dL High 70-99 [facility] Comment on above: Performed By: #### L 100.0100, L503.7505, L500.4050 ####[facility] [address] [place], [address] Potassium [Moles/Vol] 3.9 mmol/L Normal 3.3-5.1 [facility] Comment on above: Performed By: #### L 100.0100, L503.7505, L500.4050 ####[facility] [address] [place], [address] Sodium [Moles/Vol] 140 mmol/L Normal 133-145 [facility] Comment on above: Performed By: #### L 100.0100, L503.7505, L500.4050 ####[facility] [address] [place], [address] T PROT 6.6 g/dL Normal 5.9-8.4 [facility] Comment on above: Performed By: #### L 100.0100, L503.7505, L500.4050 ####[facility] [address] [place], [address] Urea nitrogen [Mass/Vol] 13 mg/dL Normal 4-19 [facility] Comment on above: Performed By: #### L 100.0100, L503.7505, L500.4050 ####[facility] [address] [place], [address] Emergency Department Summary on 07-06-2024 Emergency Department Summary [facility] Medical Records Department [address] [place] [address] Emergency Department Summary 07/06/24 MR#: [id number] Acct: [id number] Name: IRWIN CORDERO Rep #: [id number] : 1940 84 From: Amado Anderson MD PCP: Dr. Marcelo Mccullough MD Status:REG ER Location: ED HPI History of Present Illness Chief Complaint: General Illness Narrative Narrative: 84-year-old male past medical history of atrial fibrillation, chronic leg swelling with transudate from the left lower extremity presents with his daughter because of generalized weakness and shortness of breath along with the leg swelling. They relate history that approximately 11 days ago he began having bilateral leg swelling. They saw their primary care provider, Dr. Mccullough, who ordered ultrasounds and there is no evidence of blood clots. Daughter states that his bilateral legs continue to swell. They were seen by the [place] [facility] and outpatient testing for heart failure were ordered, but they stated that if the patient became worse that he should come to the ED. Patient has had a generalized weakness but denies any fevers or chills. He has a chronic cough. His daughter states that he seemed very short of breath this morning. He denies any chest pain, no recent nausea or vomiting. He states he has been eating well but does not drink a large amount of fluids. They present to the emergency department mainly because of his generalized weakness and bilateral leg swelling. [facility] Medical History History of DVT (deep vein thrombosis) Atherosclerosis of coronary artery of [place] heart without angina pectoris Overweight (BMI 25.0-29.9) Hypertension Coronary artery disease A-fib Paroxysmal atrial fibrillation Anemia New onset a-fib Heartburn Bronchitis PUD (peptic ulcer disease) Deep vein thrombosis of left lower extremity (2012) Essential (primary) hypertension DDD (degenerative disc disease) Non-ST elevation (NSTEMI) myocardial infarction (10/03/16) PND (post-nasal drip) Multiple allergies Cough Prostate enlargement Stomach ulcer GERD (gastroesophageal reflux disease) Glaucoma Skin cancer Unstable angina Hyperlipidemia Crohn disease Home Medications ???Medication ???Instructions ???Recorded ???Last Taken ???Type nitroglycerin 0.4 mg sublingual 0.4 mg sublingual Q5-15M PRN Chest 04/06/17 Unknown History tablet (Nitrostat) Pain pantoprazole 40 mg tablet,delayed 40 mg PO DAILY stomach 01/26/20 1 04/23/21 09:00 History release acetaminophen 325 mg tablet 650 mg PO Q6H PRN Breakthrough 02/27/24 History (Tylenol) Pain, Mild levocetirizine 5 mg tablet 5 mg PO QHS 01/18/23 Unknown Histo ry apixaban 5 mg tablet (Eliquis) 2.5 mg PO BID blood thinner 02/23/24 History Held on 02/29/24. Instructions: Until cleared to start again by Dr. Beltran vit C 250 mg-vit E 90 mg-zinc 40 1 tab PO BID 02/28/24 Unknown Hist ory mg-copper 1 hf-tdznby-aycbxa capsule (PreserVision AREDS-2) aspirin 81 mg chewable tablet 81 mg PO BREAKFAST #0 tabs 4 Unknown Rx ferrous sulfate 324 mg (65 mg 324 mg PO QDAY 03/17/24 Unknown Hi story iron) tablet,delayed release amiodarone 200 mg tablet 100 mg (1/2 x 200 mg) PO QDAY #90 04/10/24 Unknown Rx tabs metoprolol tartrate 25 mg tablet 25 mg PO BID #180 tabs 04/11/24 Un known Rx Held on 05/15/24. Instructions: Fatigue/Weakness 05/15/2024 atorvastatin 20 mg tablet 20 mg PO QHS cholesterol 05/15/24 Unknown History balsalazide 750 mg capsule 2,250 mg PO TID stomach 05/15/24 U nknown History calcium carbonate (Tums) 200 mg PO BID 05/15/24 Unknown His tory guaifenesin 100 mg/5 mL oral liquid 200 mg PO Q4H PRN 05/15/24 Unkn own History levothyroxine 25 mcg tablet 25 mcg PO QDAY 05/15/24 Unknown Hi story mesalamine 1,000 mg rectal 1,000 mg [place] Q OTHER DAY 05/15/24 U nknown History suppository polyethylene glycol 3350 17 17 g PO QDAY PRN 05/15/24 Unknown History gram/dose oral powder (Miralax) cephalexin 500 mg capsule 500 mg PO Q12 #14 CAPSULES 5 Unknown Rx Allergy/AdvReac Type Severity Reaction Status Date / Time albuterol Allergy Severe Chest Verified 07/06/24 14:06 tightness/afib rvr digoxin Allergy Intermediate Dizziness, Verified 07/06/24 14:06 headache, fuzzy thoughts ragweed pollen AdvReac Intermediate Nasal Verified 07/06/24 14:06 congestion Family History Father Heart disease Mother CVA (cerebral vascular accident) Surgical History History of dental surgery (04/15/21) History of coronary artery stent placement (10/05/16) Previous back surgery H/O colonos (more content not included)... Normal [facility] Eosinophil percentageOrdered By: Amado Anderson on 07-06-2024 Eosinophils/100 WBC (Bld) 7.9 % High 0-5 [facility] Epithelial cells.squamous LM Ql (Urine sed)Ordered By: Amado Anderson on 07-06-2024 Epithelial cells.squamous LM.HPF (Urine sed) [#/Area] 0 /[HPF] 0-5 [facility] Erythrocyte distribution wid th (RBC) [Ratio]Ordered By: Amado Anderson on 07-06-2024 Erythrocyte distribution width (RBC) [Entitic vol] 52.6 fL High 35.1-43.9 [facility] Erythrocyte distribution wid th ratioOrdered By: Amado Anderson on 07-06-2024 Erythrocyte distribution width (RBC) [Ratio] 14.9 % High 11.6-14.6 [facility] Erythrocyte distribution wid th standard deviationOrdered By: Amado Anderson on 07-06-2024 Erythrocyte distribution width (RBC) [Ratio] 52.6 fl High 35.1-43.9 [facility] GFR/1.73 sq M.predicted grant g non-blacks MDRD (S/P/Bld) [Vol rate/Area]Ordered By: Amado Anderson on 07-06-2024 Estimated GFR (MDRD) Non-Af Amer 84 >60 [facility] Comment on above: mL/min/1.73m2 CKD-EP I Creatinine Equation (2020) Glomerular filtration rate ( GFR) estimation/1.73 sq m using serum, plasma, or whole bOrdered By: Amado Anderson on 07-06-2024 GFR/1.73 sq M.predicted among non-blacks MDRD (S/P/Bld) [Vol rate/Area] 84 mL/min/{1.73_m2} >60 [facility] Comment on above: mL/min/1.73m2 CKD-EP I Creatinine Equation (2020) Glucose Ql (U)Ordered By: Ced Anderson on 07-06-2024 Urine Glucose (UA) Normal mg/dl Normal [facility] Hematocrit Auto (Bld) [Volum e fraction]Ordered By: Amado Anderson on 07-06-2024 Hematocrit (Bld) [Volume fraction] 36.9 % Low 40-54 [facility] Hemoglobin measurementOrdere d By: Amado Anderson on 07-06-2024 Hemoglobin (Bld) [Mass/Vol] 12.4 g/dL Low 13.0-16.5 [facility] Immature granulocytes/100 WB C Auto (Bld)Ordered By: Amado Anderson on 07-06-2024 Immature granulocytes/100 WBC (Bld) 1.000 % High 0.0-0.9 [facility] Comment on above: IG% - Immature Granu locytes (promyelocytes, myelocytes and metamyelocytes) > 1% indicates that a LEFT SHIFT is Present. Ketones Test strip Ql (U)Ord ered By: Amado Anderson on 07-06-2024 Ketones Ql (U) Negative Negative [facility] L503.7505on 07-06-2024 Natriuretic peptide B (Bld) [Mass/Vol] 358 pg/mL Normal <=1800 [facility] Comment on above: Result Comment: Hear t Failure Unlikely: < 300 pg/mL Heart Failure Likely < 50 Years: > 450 pg/mL 50-75 Years: > 900 pg/mL >75 Years: > 1800 pg/mL Performed By: #### L 100.0100, L503.7505, L500.4050 ####[facility] [address] [place], [address] Laboratory - Chemistry and C hemistry - challengeOrdered By: Amado Anderson on 07-06-2024 AST [Catalytic activity/Vol] 26 U/L <38 [facility] Lymphocytes Auto (Unsp spec) [#/Vol]Ordered By: Amado Anderson on 07-06-2024 Lymphocytes (Bld) [#/Vol] 1.15 10*3/uL 0.83-4.51 [facility] Lymphocytes/100 WBC Auto (Un sp spec)Ordered By: Amado Anderson on 07-06-2024 Lymphocytes/100 WBC (Bld) 23.2 % 19-41 [facility] MCV (mean corpuscular volume ) determinationOrdered By: Amado Anderson on 07-06-2024 MCV (RBC) [Entitic vol] 96.9 fL High 80-94 [facility] Mean corpuscular hemoglobin (MCH) determinationOrdered By: Amado Anderson on 07-06-2024 MCH (RBC) [Entitic mass] 32.5 pg High 27.0-32.0 [facility] Mean corpuscular hemoglobin concentration (MCHC) determinationOrdered By: Amado Anderson on 07-06-2024 MCHC (RBC) [Mass/Vol] 33.6 g/dL 32-36 [facility] Mean platelet volume determi nationOrdered By: Amado Anderson on 07-06-2024 Platelet mean volume (Bld) [Entitic vol] 9.3 fL 6.2-12.0 [facility] Microscopic analysis of urin e for red blood cells (RBC)Ordered By: Amado Anderson on 07-06-2024 Microscopic analysis of urine for red blood cells (RBC) > 100 SEEN /hpf 0-5 [facility] Urine RBC > 100 SEEN /hpf 0-5 [facility] Monocyte percentageOrdered B y: Amado Anderson on 07-06-2024 Monocytes/100 WBC (Bld) 23.6 % High 0-10 [facility] Mucus LM Ql (Urine sed)Order ed By: Amado Anderson on 07-06-2024 Mucus Ql (Urine sed) 0 SEEN /hpf [facility] Natriuretic peptide.B prohor jazmín N-Terminal [Mass/Vol]Ordered By: Amado Anderson on 07-06-2024 Natriuretic peptide B (Bld) [Mass/Vol] 358 pg/mL <1800 [facility] Comment on above: Heart Failure Unlike ly: < 300 pg/mLHeart Failure Likely< 50 Years: > 450 pg/mL50-75 Years: > 900 pg/mL>75 Years: > 1800 pg/mL Natriuretic peptide.B prohor jazmín N-Terminal [Mass/volume] in Serum or PlasmaOrdered By: Amado Anderson on 07-06-2024 Natriuretic peptide.B prohormone N-Terminal [Mass/Vol] 358 pg/mL <1800 [facility] Comment on above: Heart Failure Unlike ly: < 300 pg/mLHeart Failure Likely< 50 Years: > 450 pg/mL50-75 Years: > 900 pg/mL>75 Years: > 1800 pg/mL Neutrophil percentageOrdered By: Amado Anderson on 07-06-2024 Neutrophils/100 WBC (Bld) 43.7 % Low 47-70 [facility] Nitrite Test strip Ql (U)Ord ered By: Amado Anderson on 07-06-2024 Nitrite Ql (U) Negative Negative [facility] Nucleated red blood cell per centageOrdered By: Amado Anderson on 07-06-2024 Nucleated RBC/100 WBC (Bld) [Ratio] 0 % 0-5 [facility] Platelet countOrdered By: Ced Anderson on 07-06-2024 Platelets (Bld) [#/Vol] 262 10*3/uL 150-450 [facility] Potassium (Unsp spec) [Mass/ Vol]Ordered By: Amado Anderson on 07-06-2024 Potassium [Moles/Vol] 3.9 mmol/L 3.3-5.1 [facility] Potassium measurement (mass/ volume)Ordered By: Amado Anderson on 07-06-2024 Potassium (Unsp spec) [Mass/Vol] 3.9 mmol/L 3.3-5.1 [facility] Protein Test strip Ql (U)Ord ered By: Amado Anderson on 07-06-2024 Protein Ql (U) TNP [facility] Comment on above: Test not performed Protein, Urine 24HRon 2024 24hr UR PROTEIN Normal <150 MG/24HR [facility] Comment on above: Order Comment: WRONG TEST ORDERED Result Comment: Estuardo fox via OM: Incorrect ordering MD Performed By: #### L 500.4050, L501.9520, L506.1000, L100.0100 #### [facility] [address] [place], [address] Protein Ql (U) Normal <11.9 [facility] Comment on above: Order Comment: WRONG TEST ORDERED Result Comment: Canc elled via OM: Incorrect ordering MD Performed By: #### L 500.4050, L501.9520, L506.1000, L100.0100 #### [facility] [address] [place], [address] UR COLLECT TIME Normal 24.0 [facility] Comment on above: Order Comment: WRONG TEST ORDERED Result Comment: Canc elled via OM: Incorrect ordering MD Performed By: #### L 500.4050, L501.9520, L506.1000, L100.0100 #### [facility] [address] [place], [address] UR TOTAL VOLUME Normal [facility] Comment on above: Order Comment: WRONG TEST ORDERED Result Comment: Canc elled via OM: Incorrect ordering MD Performed By: #### L 500.4050, L501.9520, L506.1000, L100.0100 #### [facility] [address] [place], [address] RBC Auto (Bld) [#/Vol]Ordere d By: Amado Anderson on 07-06-2024 RBC (Bld) [#/Vol] 3.81 10*6/uL Low 4.6-6.2 [facility] Serum creatinine measurement (mass/volume)Ordered By: Amado Anderson on 07-06-2024 Creatinine [Mass/Vol] 0.88 mg/dL 0.70-1.20 [facility] Serum globulin measurementOr dered By: Amado Anderson on 07-06-2024 Globulin (S) [Mass/Vol] 2.9 g/dL 2.2-4.2 [facility] Serum glucose measurement (m ass/volume)Ordered By: Amado Anderson on 07-06-2024 Glucose [Mass/Vol] 102 mg/dL High 70-99 [facility] Serum or plasma alanine smallwood otransferase (ALT) measurementOrdered By: Amado Anderson on 07-06-2024 ALT [Catalytic activity/Vol] 10 U/L <47 [facility] Serum or plasma albumin josh urement (mass/volume)Ordered By: Amado Anderson on 07-06-2024 Albumin [Mass/Vol] 3.8 g/dL 3.4-4.8 [facility] Serum or plasma albumin/glob ulin mass ratioOrdered By: Amado Anderson on 07-06-2024 Albumin/Globulin [Mass ratio] 1.3 {ratio} 0.9-2.4 [facility] Serum or plasma alkaline hank sphatase measurementOrdered By: Amado Anderson on 07-06-2024 ALP [Catalytic activity/Vol] 70 U/L 40-129 [facility] Serum or plasma calcium josh urement (mass/volume)Ordered By: Amado Anderson on 07-06-2024 Calcium [Mass/Vol] 8.6 mg/dL 7.6-11.0 [facility] Serum or plasma urea nitroge n measurement (mass/volume)Ordered By: Amado Anderson on 07-06-2024 Urea nitrogen [Mass/Vol] 13 mg/dL 4-19 [facility] Sodium levelOrdered By: Amado Anderson on 07-06-2024 Sodium [Moles/Vol] 140 mmol/L 133-145 [facility] Squamous epithelial cells de tection in urine sediment by light microscopyOrdered By: Amado Anderson on 07-06-2024 Epithelial cells.squamous LM Ql (Urine sed) 0 SEEN /hpf 0-5 [facility] Total proteinOrdered By: Nela Anderson on 07-06-2024 Protein [Mass/Vol] 6.6 g/dL 5.9-8.4 [facility] Urinalysis, Completeon 07-06 RBC > 100 SEEN Normal 0-5 [facility] Comment on above: Order Comment: COLLE CTOR TO SPECIFY Performed By: #### L 400.0001 ####[facility] [address] [place], [address] WBC 10-25 SEEN Normal 0-5 [facility] Comment on above: Order Comment: STEFANY CTOR TO SPECIFY Performed By: #### L 400.0001 ####[facility] [address] [place], [address] BACTERIA 0 SEEN Normal None Seen [facility] Comment on above: Order Comment: STEFANY CTOR TO SPECIFY Performed By: #### L 400.0001 ####[facility] [address] [place], [address] EPI,SQUAMOUS 0 SEEN Normal 0-5 [facility] Comment on above: Order Comment: STEFANY CTOR TO SPECIFY Performed By: #### L 400.0001 ####[facility] [address] [place], [address] Mucus Ql (Urine sed) 0 SEEN Normal [facility] Comment on above: Order Comment: STEFANY CTOR TO SPECIFY Performed By: #### L 400.0001 ####[facility] [address] [place], [address] Urine blood detectionOrdered By: Amado Anderson on 07-06-2024 Urine Occult Blood 250 /ul High Negative [facility] Urine clarityOrdered By: Nela Anderson on 07-06-2024 Clarity (U) Sl. Cloudy Clear [facility] Urine color determinationOrd ered By: Amado Anderson on 07-06-2024 Color (U) Yellow Yellow [facility] Urine cultureOrdered By: Nela Anderson on 07-06-2024 Bacteria identified Cx Nom (U) Positive Abnormal [facility] Urine glucose detectionOrder ed By: Amado Anderson on 07-06-2024 Glucose Ql (U) Normal mg/dl Normal [facility] Urine leukocyte esterase det ection by dipstickOrdered By: Amado Anderson on 07-06-2024 Leukocyte esterase Test strip Ql (U) 500 /ul High Negative [facility] Urine pHOrdered By: Amado hamm on 07-06-2024 pH (U) 6.5 [pH] 5.0 - 8.0 [facility] Urine sediment bacteria coun t by microscopy (number/high power field)Ordered By: Amado Anderson on 07-06-2024 Bacteria LM.HPF (Urine sed) [#/Area] 0 /[HPF] None Seen [facility] Urine specific gravity measu rementOrdered By: Amado Anderson on 07-06-2024 Specific gravity (U) [Rel density] 1.020 1.002-1.030 [facility] Urine urobilinogen measureme ntOrdered By: Amado Anderson on 07-06-2024 Urobilinogen Ql (U) 1 mg/dl High Normal [facility] Urobilinogen Ql (U)Ordered B y: Amado Anderson on 07-06-2024 Urobilinogen (U) [Mass/Vol] 1 mg/dL High Normal [facility] White blood cell (WBC) count Ordered By: Amado Anderson on 07-06-2024 WBC (Bld) [#/Vol] 5.0 10*3/uL 4.4-11.0 [facility] White blood cell countOrdere d By: Amado Anderson on 07-06-2024 Urine WBC 10-25 SEEN /hpf 0-5 [facility] White blood cell count 10-25 SEEN /hpf 0-5 [facility] Absolute lymphocyte countOrd ered By: Marcelo Mccullough on 06-26-2024 Lymphocytes Auto (Unsp spec) [#/Vol] 1.23 10*3/uL 0.83-4.51 [facility] Absolute neutrophil countOrd ered By: Marcelo Mccullough on 06-26-2024 Neutrophils (Bld) [#/Vol] 2.1 10*3/uL 2.0-7.7 [facility] Automated blood erythrocyte countOrdered By: Marcelo Mccullough on 06-26-2024 RBC (Bld) [#/Vol] 3.92 10*6/uL Low 4.6-6.2 [facility] Comment on above: Performed By: #### L 100.0100 ####[facility] [address] [place], [address] Automated blood hematocrit ( percentage)Ordered By: Marcelo Mccullough on 06-26-2024 Hematocrit (Bld) [Volume fraction] 38.1 % Low 40-54 [facility] Comment on above: Performed By: #### L 100.0100 ####[facility] [address] [place], [address] Automated lymphocyte count a s percentage of total leukocytesOrdered By: Marcelo Mccullough on 06-26-2024 Lymphocytes/100 WBC (Bld) 25.6 % Normal 19-41 [facility] Comment on above: Performed By: #### L 100.0100 ####[facility] [address] [place], [address] Lymphocytes/100 WBC Auto (Unsp spec) 25.6 % - [facility] Basophil percentageOrdered B y: Marcelo Mccullough on 06-26-2024 Basophils/100 WBC (Bld) 1.0 % Normal 0-1 [facility] Comment on above: Performed By: #### L 100.0100 ####[facility] [address] [place], [address] CBC W/Diff, Automatedon 04-0 Absolute Lymph 1.23 X10 3/uL Normal 0.83-4.51 [facility] Comment on above: Performed By: #### L 100.0100 ####[facility] [address] [place], [address] Absolute Neut 2.1 X10 3/uL Normal 2.0-7.7 [facility] Comment on above: Performed By: #### L 100.0100 ####[facility] [address] [place], [address] IG% 0.200 Normal 0.0-0.9 [facility] Comment on above: Result Comment: IG% - Immature Granulocytes (promyelocytes, myelocytes and metamyelocytes) > 1% indicates that a LEFT SHIFT is Present. Performed By: #### L 100.0100 ####[facility] [address] [place], [address] Nucleated RBC (Bld) [#/Vol] 0 10*3/uL Normal 0-5 [facility] Comment on above: Performed By: #### L 100.0100 ####[facility] [address] [place], [place], [phone] RDW SD 52.4 fl High 35.1-43.9 [facility] Comment on above: Performed By: #### L 100.0100 ####[facility] [address] [place], [place], [phone] Eosinophil percentageOrdered By: Marcelo Jamel on 06-26-2024 Eosinophils/100 WBC (Bld) 8.8 % High 0-5 [facility] Comment on above: Performed By: #### L 100.0100 ####[facility] [address] [place], [address] Erythrocyte distribution wid th (RBC) [Ratio]Ordered By: Marcelo Mccullough on 06-26-2024 Erythrocyte distribution width (RBC) [Entitic vol] 52.4 fL High 35.1-43.9 [facility] Erythrocyte distribution wid th ratioOrdered By: Marcelo Jamel on 06-26-2024 Erythrocyte distribution width (RBC) [Ratio] 14.6 % Normal 11.6-14.6 [facility] Comment on above: Performed By: #### L 100.0100 ####[facility] [address] [place], [phone] Erythrocyte distribution wid th standard deviationOrdered By: Marcelo Jamel on 06-26-2024 Erythrocyte distribution width (RBC) [Ratio] 52.4 fl High 35.1-43.9 [facility] Hemoglobin measurementOrdere d By: Marcelo Mccullough on 06-26-2024 Hemoglobin (Bld) [Mass/Vol] 12.5 g/dL Low 13.0-16.5 [facility] Comment on above: Performed By: #### L 100.0100 ####[facility] [address] [place], [address] Immature granulocytes/100 WB C Auto (Bld)Ordered By: Marcelo Mccullough on 06-26-2024 Immature granulocytes/100 WBC (Bld) 0.200 % 0.0-0.9 [facility] Comment on above: IG% - Immature Granu locytes (promyelocytes, myelocytes and metamyelocytes) > 1% indicates that a LEFT SHIFT is Present. Lymphocytes Auto (Unsp spec) [#/Vol]Ordered By: Marcelo Mccullough on 06-26-2024 Lymphocytes (Bld) [#/Vol] 1.23 10*3/uL 0.83-4.51 [facility] MCV (mean corpuscular volume ) determinationOrdered By: Marcelo Mccullough on 06-26-2024 MCV (RBC) [Entitic vol] 97.2 fL High 80-94 [facility] Comment on above: Performed By: #### L 100.0100 ####[facility] [address] [facility] [address] Mean corpuscular hemoglobin (MCH) determinationOrdered By: Marcelo Mccullough on 06-26-2024 MCH (RBC) [Entitic mass] 31.9 pg Normal 27.0-32.0 [facility] Comment on above: Performed By: #### L 100.0100 ####[facility] [address] [facility] [address] Mean corpuscular hemoglobin concentration (MCHC) determinationOrdered By: Marcelo Mccullough 06-26-2024 MCHC (RBC) [Mass/Vol] 32.8 g/dL Normal 32-36 [facility] Comment on above: Performed By: #### L 100.0100 ####[facility] [address] [facility] [address] Mean platelet volume determi nationOrdered By: Marcelo Mccullough on 06-26-2024 Platelet mean volume (Bld) [Entitic vol] 8.7 fL Normal 6.2-12.0 [facility] Comment on above: Performed By: #### L 100.0100 ####[facility] [address] [place] [phone] Monocyte percentageOrdered B y: Marcelo Mccullough on 06-26-2024 Monocytes/100 WBC (Bld) 19.8 % High 0-10 [facility] Comment on above: Performed By: #### L 100.0100 ####[facility] [address] [place], [address] Neutrophil percentageOrdered By: Marcelo Mccullough on 06-26-2024 Neutrophils/100 WBC (Bld) 44.6 % Low 47-70 [facility] Comment on above: Performed By: #### L 100.0100 ####[facility] [address] [place], [place], [phone] Nucleated red blood cell per centageOrdered By: Marcelo Mccullough on 06-26-2024 Nucleated RBC/100 WBC (Bld) [Ratio] 0 % 0-5 [facility] Platelet countOrdered By: Ayden brenda Mccullough on 06-26-2024 Platelets (Bld) [#/Vol] 253 10*3/uL Normal 150-450 [facility] Comment on above: Performed By: #### L 100.0100 ####[facility] [address] [place], [place], [id number] Venous Duplex US - Raymond Extre mon 06-26-2024 Venous Duplex US - Raymond Extrem [facility] [address] [place] [address] Venous Duplex US - Raymond Extrem 06/26/24 1206 MR#: [id number] Acct: [id number] Name: IRWIN CORDERO Rep #: [id number] : 1940 84 From: Eloy Brito MD Attending Dr: Dr. Marcelo Mccullough MD Status: REG CLI Ordering Dr: Marcelo Mccullough MD Date: 06/26/24 Location: [facility] Sex: M C Admitted: Reason For Study Reason For Study: BLE Swelling RIGHT LEFT GSV is normal. GSV is normal. CFV is compressible, spontaneous, phasic, competent Lt CFV - FV - Pop V - T/P Trunk all appear PARTIALLY and demonstrates normal augmentation. Vein Wall COMPRESSIBLE with hyperechoic web- like intraluminal thickening is noted. echoes. Finding is consistent with CHRONIC DVT. FV is compressible, spontaneous, phasic, competent PTV is compressible. and demonstrates normal augmentation. Vein Wall LT PerV is compressible. thickening is noted. POP V is compressible, spontaneous, phasic, competent and demonstrates normal augmentation. T/P Trunk is compressible. PTV is compressible. RT PerV is compressible. Gastrocnemius vein is PARTIALLY COMPRESSIBLE with hyperechoic web-like intraluminal echoes. Finding is consistent with CHRONIC DVT. Procedure This is a venous duplex using B-mode, color flow and spectral Doppler. Exam performed in department. The exam was diagnostic. A preliminary report was called and/or faxed to Dr. Mccullough's office. VL/Venous Duplex US - Raymond Extrem Interpretation Summary Chronic deep vein thrombosis noted in the right gastrocnemius vein. Chronic deep vein thrombosis noted in the left common femoral vein, femoral vein, popliteal vein, tibioperoneal trunk vein. Ordering Physician: Marcelo Mccullough Chi Referring Physician: Marcelo Mccullough Chi Performed By: Doni Cardona, T 06/26/241935 Date Eloy Brito MD CC: Dr. Marcelo Mccullough MD Date Dictated: 06/26/24 1206 Date Transcribed: 06/26/241935 Tool And Die Supervisor: Signed Normal [facility] Venous duplex ultrasound rep ortOrdered By: Eloy Brito on 06-26-2024 US Vein [facility] [address] [place] [address] Venous Duplex US - Raymond Extrem 06/26/24 1206 MR#: [id number] Acct: [id number] Name: IRWIN CORDERO Rep #:[id number] : 1940 84 From: Eloy Lara Attending Dr: Dr. Marcelo Mccullough MD Status: REG CLI Ordering Dr: Marcelo Mccullough MD Date: 10/13 Location: [facility] Sex: M C Admitted: Reason For Study Reason For Study: BLE Swelling RIGHT LEFT GSV is normal. GSV is normal. CFV is compressible, spontaneous, phasic, competent Lt CFV - FV - Pop V - T/P Trunk all appear PARTIALLY and demonstrates normal augmentation. Vein Wall COMPRESSIBLE with hyperechoic web-like intraluminal thickening is noted. echoes. Finding is consistent with CHRONIC DVT. FV is compressible, spontaneous, phasic, competent PTV is compressible. and demonstrates normal augmentation. Vein Wall LT PerV is compressible. thickening is noted. POP V is compressible, spontaneous, phasic, competent and demonstrates normal augmentation. T/P Trunk is compressible. PTV is compressible. RT PerV is compressible. Gastrocnemius vein is PARTIALLY COMPRESSIBLE with hyperechoic web-like intraluminal echoes. Finding is consistent with CHRONIC DVT. Procedure This is a venous duplex using B-mode, color flow and spectral Doppler. Exam performed in department. The exam was diagnostic. A preliminary report was called and/or faxed to Dr. Mccullough's office. VL/Venous Duplex US - Raymond Extrem Interpretation Summary Chronic deep vein thrombosis noted in the right gastrocnemius vein. Chronic deep vein thrombosis noted in the left common femoral vein, femoral vein, popliteal vein, tibioperoneal trunk vein. Ordering Physician: Marcelo Mccullough Chi Referring Physician: Marcelo Mccullough Chi Performed By: Doni Cardona, RVT 06/26/241935 Date _ Eloy Brito MD CC: Dr. Marcelo Mccullough MD ~ Date Dictated: 06/26/24 1206 Date Transcribed: 06/26/241935 Tool And Die Supervisor: Signed [facility] Work Phone: White blood cell (WBC) count Ordered By: Marcelo Mccullough on 06-26-2024 WBC (Bld) [#/Vol] 4.8 10*3/uL Normal 4.4-11.0 [facility] Comment on above: Performed By: #### L 100.0100 ####[facility] [address] [place], [address] 12 Lead EKG performed by [facility] on 05-15-2024 12 Lead EKG performed by [facility] [address] [place] [address] 12 Lead EKG performed by [facility] 05/15/24 1026 MR#: [id number] Acct: [id number] Name: IRWIN CORDERO Rep #: [id number] : 1940 84 From: Dee Ku REPAIR DEPARTMENT SUPERVISOR REPAIR DEPARTMENT SUPERVISOR-C Attending Dr: Dee Ku REPAIR DEPARTMENT SUPERVISOR-C Status: DEP AMB Ordering Dr: Dee Ku REPAIR DEPARTMENT SUPERVISOR REPAIR DEPARTMENT SUPERVISOR-C Date: 05/15/24 [place] [facility] [place]: M C Admitted: [facility]/12 Lead EKG performed by [facility] ECG Report Interpretation ----Sinus Bradycardia WITHIN NORMAL LIMITSElectronically signed on 05/16/2024 at 16:31 by Tyson Miller Software Version 8610 05/16/24 1633 Date Dee Riri DESAI CC: Dr. Marcelo Mccullough MD Date Dictated: 05/15/24 1026 Date Transcribed: 05/15/24 1026 Tool And Die Supervisor: JONNY Signed Normal [facility] Cardiology Visit Reporton Cardiology Visit Report [facility] [address] [place] [address] OFFICE VISIT Date of Service: 05/15/24 MR#: [id number] Acct: [id number] Name: IRWIN CORDERO Rep #: [id number] : 1940 Provider: LLOYD rosario Age/Sex: 84/M Location: [facility] Status: Signed HPI HPI History of Present Illness Details: Mr. Cordero is a pleasant 84-year-old man with a history of hypertension, hypercholesterolemia, coronary artery disease who presented to [facility] on 10/03/16 with acute coronary syndrome. Patient had a minor troponin release of 0.43 maximum, was taken to the [facility] on 10/05/16 which showed normal LV size and function, a questionable lesion in the proximal RCA, and nonobstructive coronary disease of the left circumflex, PDA and LAD. The patient underwent successful angioplasty and drug-eluting stenting of the proximal RCA. The patient was found to have questionable disease of his LAD and underwent a stress echocardiogram on 10/30/16 which was negative for inducible ischemia of the anterior wall. 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 He did undergo a stress echocardiogram in July 2018 which was apparently normal. He underwent repeat stress test on account of shortness of breath on 02/12/2020 that was negative for ischemia and showed a preserved ejection fraction. Pt was seen in the Er on 02/21/2022 for chest pain. EKG demonstrated new onset of Afib with RVR. He did concert to SR. He was admitted for observation. In the ER he was started on a cardizem drip but this was discontinued d/t hypotension. His metoprolol was restarted. He was already on Eliquis for hx of DVT. Echocardiogram demonstrated an EF of 55%. His left and right atrium are severely enlarged. Troponins were negative. He presented to the Emergency Department on 02/28/2024 for chest pain. He was noted to be in atrial fibrillation with RVR. He received IV Cardizem and IV metoprolol. He proceeded with a cardioversion x 3 that was unsuccessful. On account of chest pain, he underwent a heart catheterization that showed patent previously placed stents in the RCA. Echocardiogram on 02/28/2024 showed an ejection fraction of 55% and normal left and right atrium size. He converted to sinus rhythm prior to discharge. His Eliquis was placed on hold on account of GI bleeding. He was noted be rhinovirus positive and his antibiotic was discontinued. He was seen with director of land, Dr. Wadsworth on 04/19/2024. Rhythm controlling strategies and stroke protection was reviewed in detail. Overall recommendation was to continue with low-dose amiodarone to see how he does. If rectal bleeding is considered to be severe, he may be a watchman candidate, but does require minimum 6 weeks anticoagulation plus Aspirin or Plavix plus aspirin post watchman implant, which may challenge bleeding related issues. No changes were made. He acknowledges weekly, sharp chest discomfort. This occurs randomly. This is brief and located left and right side of his chest. This resolves on its own. He denies palpitations. He acknowledges bilateral lower extreme edema that is unchanged from previous. He acknowledges shortness of breath activity that his daughter feels is worse than previous and patient feels is unchanged from previous. He denies shortness of breath at rest, orthopnea, cough, or PND. He acknowledges lightheadedness and weakness that he feels to be worsening since last office visit. He states worsening fatigue since last office visit. Intake Vital Signs 03/17/24 10:29 05/15/24 09:44 Height 5 ft 2 in 5 ft 2 in Weight: 150 lb 151 lb BMI 27.4 27.6 BP 126/54 H 142/56 H Blood Pressure Location Lt brachial Lt brachial Position Sitting Sitting Respiration 16 16 Pulse 59 L 55 L Pulse Source NIBP NIBP Pulse Oximetry (%) 92 Oxygen Delivery Method room air Intake Visit Reasons: 2 M FU Podiatry Assistant Required: No Accompanied by: Daughter Is patient in pain?: No Allergies albuterol Allergy (Severe, Verified 05/15/24 09:52) Chest tightness/afib rvr digoxin Allergy (Intermediate, Verified 05/15/24 09:52) Dizziness, headache, fuzzy thoughts ragweed pollen Adverse Reaction (Intermediate, Verified 05/15/24 09:52) Nasal congestion Medications ???Medication ???Instructions ???Recorded ???Confirmed ???Type nitroglycerin 0.4 mg sublingual 0.4 mg sublingual Q5-15M PRN Chest 04/06/17 05/15/24 History tablet (Nitrostat) Pain pantoprazole 40 mg tablet,delayed 40 mg PO DAILY stomach 01/26/20 0 05/15/24 History release acetaminophen 325 mg tablet 650 mg PO Q6H PRN Breakthrough 05/15/24 History (Tylenol) Pain, Mild levocetirizine 5 mg tablet 5 mg PO QHS 01/18/23 05/15/24 Hist ory apixaban 5 mg tablet (Eliquis) 2.5 mg PO BID blood t (more content not included)... Normal [facility] Serum or plasma thyroid stim ulating hormone (TSH) measurement (units/volume)Ordered By: Marcelo Mccullough on 05-03-2024 TSH Qn 1.200 uIU/mL 0.358-3.740 [facility] TSH QnOrdered By: Marcelo bauman 05-03-2024 Thyroid Stimulating Hormone (TSH) 1.200 uIU/mL 0.358-3.740 [facility] Thyroid Stim Hormone (TSH)on 05-03-2024 TSH 1.200 uIU/mL Normal 0.358-3.740 [facility] Comment on above: Performed By: #### L 501.9520 ####[facility] [id number] [place], [place], [id number] CNOVon 04-19-2024 CNOV Office Visit (AGCARDPOB) IRWIN CORDERO ([id number]) 1940 M Date Time Provider Department 04/19/24 2:20 PM ANDREW WADSWORTH AGCARDPOB During your visit today, we recorded the following information about you: Pulse Blood pressure Weight Height 55/minute 158/72 68 kg 1.575 m Andrew Wadsworth MD 04/19/2024 6:08 PM Signed PRIMARY CARE PHYSICIAN: Marcelo Mccullough MD [address] [place] [address] REFERRING PHYSICIAN: Dee Ku [address] [facility] [address] Patient Care Team: Marcelo Mccullough Chi as PCP - General (Gerontology) Erick Beltran MD as Specialty House Visitor (Gastroenterology) Tyson Miller MD as Specialty House Visitor (Cardiology) Dee Ku APRN.CARMEN as Nurse Practitioner (Cardiology) CHIEF COMPLAINT: Evaluation of arrhythmia HISTORY OF PRESENT ILLNESS: Mr. Cordero is a 83 year old male who presents today for evaluation of atrial fibrillation, accompanied by his daughter and son-in-law. Mr. Cordero has experienced about 4 episodes of atrial fibrillation since February 2022. A second episode of atrial fibrillation occurred in October 2022. He had symptoms with tachycardia, including palpitations and lightheadedness. He presented to ER, admitted to [facility]. He had electrical cardioversion but despite 4 attempts failed to restore sinus rhythm. He was treated with IV medications, including possibly amiodarone at that point. His daughter has very detailed notes, actually written log, of the events over time. We reviewed those notes in detail. The atrial fibrillation spontaneously converted to sinus rhythm. He was treated with oral amiodarone. He was not on the amiodarone for very long, he had side effects evidently. They were unsure of when the atrial fibrillation was discontinued. He did have recurrent atrial fibrillation a couple of months later in December 2022. Admitted to [facility], spontaneously converted back to sinus rhythm. He did not have another episode of atrial fibrillation until over a year later in 02/2024. He evidently had electrical cardioversions x 3 attempts but these were unsuccessful to restore sinus rhythm. He was treated again with amiodarone. He has been experiencing dizziness, mental sluggishness and there is question about whether this is due to side effect from amiodarone. On 04/11/2024 the amiodarone dose was reduced to 100 mg daily. He has been treated with Eliquis for the past couple years, had been on Eliquis prior to the diagnosis of the atrial fibrillation, on oral anticoagulation therapy for DVT (about 1998). However, he stopped Eliquis 10/2023 due to rectal bleeding. He states he has been found to have Crohns colitis documented by sigmoidoscopy. He has noticed some recurrent rectal bleeding recently even off of anticoagulation, just taking low dose aspirin. He is referred for consideration of the management options for the atrial fibrillation and also the options for stroke prevention, specifically the option of Watchman left atrial appendage closure. I have confirmed and edited as necessary, the PFSH and ROS obtained by others. 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 04/12/2024 NSTEMI (non-ST elevated myocardial infarction) (HCC) Other specified glaucoma laser both eyes Other ulcerative colitis Paroxysmal atrial fibrillation (HCC) Persistent atrial fibrillation (HCC) 04/12/2024 PUD (peptic ulcer disease) PVD (peripheral vascular disease) ([facility]) Status post primary angioplasty with coronary stent 04/12/2024 PAST SURGICAL HISTORY Procedure Laterality Date COLONOSCOPY FLX DX W/COLLJ SPEC WHEN PFRMD 2014 INSERT INTRACORONARY STENT 10/05/2016 PCI/TAMIKO to proximal RCA; [facility] LEFT HEART CATH,PERCUTANEOUS 02/28/2024 PAST SURGICAL HISTORY OF back surgery-sciatica x 2 PAST SURGICAL HISTORY OF laser both eyes glaucoma SOCIAL HISTORY Social History Tobacco Use Smoking status: Former Smokeless tobacco: Former Types: Chew Quit date: 1984 Tobacco comments: Substance Use Topics Alcohol use: No Drug use: Never FAMILY HISTORY Problem Relation Age of Onset Heart Father Heart Paternal Grandfather ALLERGIES: ALLERGIES Allergen Reactions Albuterol Sulfate Other: See Comme (more content not included)... Normal [facility] ECG B/O W INTERP (MED OFFICE )on 04-19-2024 Sinus bradycardia 55 bpm; normal conduction intervals (NY 172 ms, QRS 92 ms); QTc 461 ms; heart rate, conduction intervals and QTc appropriate on amiodarone 100 mg daily [facility] [id number] DOrdered By: Radha Mccullough on 03-21-2024 Vitamin D 25-Hydroxy 29.2 ng/mL [facility] Comment on above: Vitamin D 25(OH) Sta tus Range Deficiency <20 ng/mL (50nmol/L) Insufficiency 20 - 30 ng/mL (50 - 75 nmol/L) Sufficiency 30 - 100 ng/mL (75 - 250 nmol/L) Toxicity >100 ng/mL (>250 nmol/L) Absolute neutrophil countOrd ered By: Marcelo Mccullough on 03-21-2024 Neutrophils (Bld) [#/Vol] 3.0 10*3/uL 2.0-7.7 [facility] Albumin to globulin ratioOrd ered By: Marcelo Mccullough on 03-21-2024 Albumin/Globulin [Mass ratio] 0.8 {ratio} Low 0.9-2.4 [facility] Basophil percentageOrdered B y: Marcelo Mccullough on 03-21-2024 Basophils/100 WBC (Bld) 0.3 % 0-1 [facility] Bilirubin, totalOrdered By: Marcelo Mccullough on 03-21-2024 Bilirubin [Mass/Vol] 0.90 mg/dL 0.20-1.00 [facility] Comment on above: For patients on eltr ombopag therapy, use of Dimension [place] TBIL is not recommended. Blood urea nitrogen (BUN)/cr eatinine ratioOrdered By: Marcelo Mccullough on 03-21-2024 Urea nitrogen/Creatinine [Mass ratio] 15.1 mg/mg 10-20 [facility] CBC W/Diff, Automatedon 02-21 SMEAR COMMENT SCANNED Normal [facility] Comment on above: Result Comment: AUTO DIFF OK Performed By: #### L 500.4050, L501.9520, L506.1000, L100.0100 #### [facility] [address] [place], [address] Carbon dioxide measurementOr dered By: Marcelo Mccullough on 03-21-2024 CO2 [Moles/Vol] 28.0 mmol/L 21.0-32.0 [facility] Chloride measurementOrdered By: Marcelo Mccullough on 03-21-2024 Chloride [Moles/Vol] 106 mmol/L 98-107 [facility] Comprehensive Metabolic Prof ilon 03-21-2024 Albumin [Mass/Vol] 3.0 g/dL Low 3.2-5.0 [facility] Comment on above: Performed By: #### L [id number], L501.9520, L506.1000, L100.0100 #### [facility] [address] [place], [address] Albumin/Globulin [Mass ratio] 0.8 {ratio} Low 0.9-2.4 [facility] Comment on above: Performed By: #### L [id number], [id number], L506.1000, L100.0100 #### [facility] [address] [place], [address] ALK P 48 U/L Normal 45-117 [facility] Comment on above: Performed By: #### L [id number], [id number], L506.1000, L100.0100 #### [facility] [address] [place], [address] ALT [Catalytic activity/Vol] 11 U/L Low 16-61 [facility] Comment on above: Performed By: #### L [id number], [id number], L506.1000, L100.0100 #### [facility] [address] [place], [address] AST [Catalytic activity/Vol] 12 U/L Low 15-37 [facility] Comment on above: Performed By: #### L [id number], [id number], L506.1000, L100.0100 #### [facility] [address] [place], [address] Bilirubin [Mass/Vol] 0.90 mg/dL Normal 0.20-1.00 [facility] Comment on above: Result Comment: For patients on eltrombopag therapy, use of Dimension [place] TBIL is not recommended. Performed By: #### L 500.4050, [id number], L506.1000, L100.0100 #### [facility] [address] [place], [address] BUN/CRE 15.1 RATIO Normal 10-20 [facility] Comment on above: Performed By: #### L 500.4050, [id number], L506.1000, L100.0100 #### [facility] [address] [place], [address] CA,Total 8.1 mg/dL Low 8.5-10.1 [facility] Comment on above: Performed By: #### L 500.4050, [id number], L506.1000, L100.0100 #### [facility] [address] [place], [address] Chloride [Moles/Vol] 106 mmol/L Normal 98-107 [facility] Comment on above: Performed By: #### L 500.4050, [id number], L506.1000, L100.0100 #### [facility] [address] [place], [address] CO2 [Moles/Vol] 28.0 mmol/L Normal 21.0-32.0 [facility] Comment on above: Performed By: #### L 500.4050, [id number], L506.1000, L100.0100 #### [facility] [address] [place], [address] Creatinine [Mass/Vol] 0.86 mg/dL Normal 0.70-1.30 [facility] Comment on above: Result Comment: The validity of the calculated GFR GFRAA in patients over 70 years has not been determined. Clinical correlation is essential. Performed By: #### L 500.4050, [id number], L506.1000, L100.0100 #### [facility] [address] [place], [address] EST GFR - AA 108 mL/min Normal >60 [facility] Comment on above: Result Comment: Afri can Stateless GFR Calc Performed By: #### L 500.4050, [id number], L506.1000, L100.0100 #### [facility] [address] [place], [address] GAP 6 Normal 5-15 [facility] Comment on above: Performed By: #### L 500.4050, [id number], L506.1000, L100.0100 #### [facility] [address] [place], [address] GFR/1.73 sq M.predicted among non-blacks MDRD (S/P/Bld) [Vol rate/Area] 89 mL/min/{1.73_m2} Normal >60 [facility] Comment on above: Result Comment: Non- GFR Calc Performed By: #### L 500.4050, [id number], L506.1000, L100.0100 #### [facility] [address] [place], [address] Globulin (S) [Mass/Vol] 3.8 g/dL Normal 2.2-4.2 [facility] Comment on above: Performed By: #### L 500.4050, [id number], L506.1000, L100.0100 #### [facility] [address] [place], [address] Glucose [Mass/Vol] 112 mg/dL High 74-106 [facility] Comment on above: Result Comment: Fast ing Glucose result from 100 to 125 mg/dL suggests IMPAIRED HOMEOSTASIS per A.D.A. criteria. Performed By: #### L 500.4050, L501.9520, L506.1000, L100.0100 #### [facility] [address] [place], [address] Potassium [Moles/Vol] 3.6 mmol/L Normal 3.5-5.1 [facility] Comment on above: Performed By: #### L 500.4050, [id number], L506.1000, L100.0100 #### [facility] [address] [place], [address] Sodium [Moles/Vol] 140 mmol/L Normal 136-145 [facility] Comment on above: Performed By: #### L 500.4050, [id number], L506.1000, L100.0100 #### [facility] [address] [place], [address] T PROT 6.8 g/dL Normal 6.4-8.2 [facility] Comment on above: Performed By: #### L 500.4050, [id number], L506.1000, L100.0100 #### [facility] [address] [place], [address] Urea nitrogen [Mass/Vol] 13 mg/dL Normal 7-18 [facility] Comment on above: Performed By: #### L 500.4050, L501.9520, L506.1000, L100.0100 #### [facility] [address] [place], [address] Eosinophil percentageOrdered By: Marcelo Mccullough on 03-21-2024 Eosinophils/100 WBC (Bld) 3.7 % 0-5 [facility] Erythrocyte distribution wid th (RBC) [Ratio]Ordered By: Marcelo Mccullough on 03-21-2024 Erythrocyte distribution width (RBC) [Entitic vol] 53.2 fL High 35.1-43.9 [facility] Erythrocyte distribution wid th ratioOrdered By: Marcelo Mccullough on 03-21-2024 Erythrocyte distribution width (RBC) [Ratio] 15.0 % High 11.6-14.6 [facility] Estimated glomerular filtrat ion rate (GFR) AmericanOrdered By: Marcelo Mccullough on 03-21-2024 Estimated GFR (MDRD) Amer 108 mL/min >60 [facility] Comment on above: GFR Calc Glomerular filtration rate ( GFR) estimationOrdered By: Marcelo Mccullough on 03-21-2024 Estimated GFR (MDRD) Non-Af Amer 89 mL/min >60 [facility] Comment on above: Non- GFR Calc Glucose measurementOrdered B y: Marcelo Mccullough on 03-21-2024 Glucose [Mass/Vol] 112 mg/dL High 74-106 [facility] Comment on above: Fasting Glucose resu lt from 100 to 125 mg/dL suggests IMPAIRED HOMEOSTASIS per A.D.A. criteria. Hematocrit Auto (Bld) [Volum e fraction]Ordered By: Marcelo Jamel 03-21-2024 Hematocrit (Bld) [Volume fraction] 37.3 % Low 40-54 [facility] Hemoglobin measurementOrdere d By: Marcelo Mccullough on 03-21-2024 Hemoglobin (Bld) [Mass/Vol] 11.8 g/dL Low 13.0-16.5 [facility] Immature granulocytes/100 WB C Auto (Bld)Ordered By: Marcelo Jamel 03-21-2024 Immature granulocytes/100 WBC (Bld) 0.200 % 0.0-0.9 [facility] Comment on above: IG% - Immature Granu locytes (promyelocytes, myelocytes and metamyelocytes) > 1% indicates that a LEFT SHIFT is Present. Laboratory - Chemistry and C hemistry - challengeOrdered By: Marcelo Jamel 03-21-2024 AST [Catalytic activity/Vol] 12 U/L Low 15-37 [facility] Lymphocytes Auto (Unsp spec) [#/Vol]Ordered By: Marcelo Jamel on 03-21-2024 Lymphocytes (Bld) [#/Vol] 1.42 10*3/uL 0.83-4.51 [facility] Lymphocytes/100 WBC Auto (Un sp spec)Ordered By: Marcelo Mccullough on 03-21-2024 Lymphocytes/100 WBC (Bld) 24.8 % 19-41 [facility] MCV (mean corpuscular volume ) determinationOrdered By: Marcelo Mccullough on 03-21-2024 MCV (RBC) [Entitic vol] 97.1 fL High 80-94 [facility] Manual differential comment Alexandre (Bld) [Interp]Ordered By: Marcelo Mccullough on 03-21-2024 Differential Comment SCANNED [facility] Comment on above: AUTO DIFF OK Mean corpuscular hemoglobin (MCH) determinationOrdered By: Marcelo Mccullough on 03-21-2024 MCH (RBC) [Entitic mass] 30.7 pg 27.0-32.0 [facility] Mean corpuscular hemoglobin concentration (MCHC) determinationOrdered By: Marcelo Mccullough on 03-21-2024 MCHC (RBC) [Mass/Vol] 31.6 g/dL Low 32-36 [facility] Mean platelet volume determi nationOrdered By: Marcelo Mccullough on 03-21-2024 Platelet mean volume (Bld) [Entitic vol] 8.6 fL 6.2-12.0 [facility] Monocyte percentageOrdered B y: Marcelo Mccullough on 03-21-2024 Monocytes/100 WBC (Bld) 18.3 % High 0-10 [facility] Neutrophil percentageOrdered By: Marcelo Mccullough on 03-21-2024 Neutrophils/100 WBC (Bld) 52.7 % 47-70 [facility] Nucleated red blood cell per centageOrdered By: Marcelo Mccullough on 03-21-2024 Nucleated RBC/100 WBC (Bld) [Ratio] 0 % 0-5 [facility] Platelet countOrdered By: Ayden Mccullough on 03-21-2024 Platelets (Bld) [#/Vol] 275 10*3/uL 150-450 [facility] Potassium measurementOrdered By: Marcelo Mccullough on 03-21-2024 Potassium [Moles/Vol] 3.6 mmol/L 3.5-5.1 [facility] RBC Auto (Bld) [#/Vol]Ordere d By: Marcelo Mccullough on 03-21-2024 RBC (Bld) [#/Vol] 3.84 10*6/uL Low 4.6-6.2 [facility] Serum anion gap measurementO rdered By: Marcelo Mccullough on 03-21-2024 Anion gap [Moles/Vol] 6 mmol/L 5-15 [facility] Serum globulin measurementOr dered By: Marcelo Mccullough on 03-21-2024 Globulin (S) [Mass/Vol] 3.8 g/dL 2.2-4.2 [facility] Serum or plasma alanine [place] otransferase (ALT) measurementOrdered By: Marcelo Mccullough on 03-21-2024 ALT [Catalytic activity/Vol] 11 U/L Low 16-61 [facility] Serum or plasma albumin josh urement (mass/volume)Ordered By: Marcelo Mccullough 03-21-2024 Albumin [Mass/Vol] 3.0 g/dL Low 3.2-5.0 [facility] Serum or plasma alkaline hank sphatase measurementOrdered By: Marcelo Mccullough 03-21-2024 ALP [Catalytic activity/Vol] 48 U/L 45-117 [facility] Serum or plasma calcium josh urement (mass/volume)Ordered By: Marcelo Mccullough on 03-21-2024 Calcium [Mass/Vol] 8.1 mg/dL Low 8.5-10.1 [facility] Serum or plasma creatinine m easurement (mass/volume)Ordered By: Marcelo Mccullough on 03-21-2024 Creatinine [Mass/Vol] 0.86 mg/dL 0.70-1.30 [facility] Comment on above: The validity of the calculated GFR & GFRAA in patients over 70 years has not been determined. Clinical correlation is essential. Serum or plasma urea nitroge n measurement (mass/volume)Ordered By: Marcelo Mccullough on 03-21-2024 Urea nitrogen [Mass/Vol] 13 mg/dL 7-18 [facility] Sodium levelOrdered By: Marcelo Mccullough 03-21-2024 Sodium [Moles/Vol] 140 mmol/L 136-145 [facility] TSH QnOrdered By: Marcelo Mccullough o n 03-21-2024 Thyroid Stimulating Hormone (TSH) 4.080 uIU/mL High 0.358-3.740 [facility] Thyroid Stim Hormone (TSH)on 03-21-2024 TSH 4.080 uIU/mL High 0.358-3.740 [facility] Comment on above: Performed By: #### L 500.4050, L501.9520, L506.1000, L100.0100 #### [facility] [address] [place], [address] Total proteinOrdered By: Marcelo Mccullough on 03-21-2024 Protein [Mass/Vol] 6.8 g/dL 6.4-8.2 [facility] Vitamin D,25 Hydroxyon 03-21 Vitamin D 25-OH 29.2 ng/mL Normal [facility] Comment on above: Result Comment: Patel min D 25(OH) Status Range Deficiency <20 ng/mL (50nmol/L) Insufficiency 20 - 30 ng/mL (50 - 75 nmol/L) Sufficiency 30 - 100 ng/mL (75 - 250 nmol/L) Toxicity >100 ng/mL (>250 nmol/L) Performed By: #### L 500.4050, L501.9520, L506.1000, L100.0100 #### [facility] [address] [place], [address] White blood cell (WBC) count Ordered By: Marcelo Mccullough on 03-21-2024 WBC (Bld) [#/Vol] 5.7 10*3/uL 4.4-11.0 [facility] [facility] Lead EKG performed by [facility] on 03-17-2024 12 Lead EKG performed by [facility] [address] 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 Marcelo Mccullough MD Date Dictated: 03/17/241125 Date Transcribed: 03/17/241125 Tool And Die Supervisor: JONNY Signed Normal [facility] Cardiology Visit Reporton Cardiology Visit Report [facility] [address] [place] [address] OFFICE VISIT Date of Service: 03/17/24 MR#: [id number] Acct: [id number] Name: IRWIN CORDERO Rep #: [id number] : 1940 Provider: LLOYD rosario Age/Sex: 83/M Location: [facility] Status: Signed HPI HPI History of Present Illness Details: Mr. Cordero is a pleasant 83-year-old man with a history of hypertension, hypercholesterolemia, coronary artery disease who presented to [facility] on 10/03/16 with acute coronary syndrome. Patient had a minor troponin release of 0.43 maximum, was taken to the [facility] on 10/05/16 which showed normal LV size and function, a questionable lesion in the proximal RCA, and nonobstructive coronary disease of the left circumflex, PDA and LAD. The patient underwent successful angioplasty and drug-eluting stenting of the proximal RCA. The patient was found to have questionable disease of his LAD and underwent a stress echocardiogram on 10/30/16 which was negative for inducible ischemia of the anterior wall. 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 He did undergo a stress echocardiogram in July 2018 which was apparently normal. He underwent repeat stress test on account of shortness of breath on 02/12/2020 that was negative for ischemia and showed a preserved ejection fraction. Pt was seen in the Er on 02/21/2022 for chest pain. EKG demonstrated new onset of Afib with RVR. He did concert to SR. He was admitted for observation. In the ER he was started on a cardizem drip but this was discontinued d/t hypotension. His metoprolol was restarted. He was already on Eliquis for hx of DVT. Echocardiogram demonstrated an EF of 55%. His left and right atrium are severely enlarged. Troponins were negative. He presented to the Emergency Department on 02/28/2024 for chest pain. He was noted to be in atrial fibrillation with RVR. He received IV Cardizem and IV metoprolol. He proceeded with a cardioversion x 3 that was unsuccessful. On account of chest pain, he underwent a heart catheterization that showed patent previously placed stents in the RCA. Echocardiogram on 02/28/2024 showed an ejection fraction of 55% and normal left and right atrium size. He converted to sinus rhythm prior to discharge. His Eliquis was placed on hold on account of GI bleeding. He was noted be rhinovirus positive and his antibiotic was discontinued. He acknowledges dull random chest discomfort. This occurred daily to weekly. This is located midsternal, left side of his chest, and right side of his chest. This is brief. He denies palpitations. He acknowledges bilateral lower extremity edema that is unchanged over the last 10-15 years. He acknowledges shortness of breath with activity such as carrying water. He feels this to match his activity. He denies shortness of breath at rest or orthopnea. He acknowledges daily lightheadedness. He denies dizziness, near-syncope, or syncope. He acknowledges fatigue. His activity is limited on account of balance. Intake Vital Signs 02/28/24 14:37 03/17/24 10:29 Height 5 ft 2 in 5 ft 2 in Weight: 150 lb BMI 27.4 BP 126/54 H Blood Pressure Location Lt brachial Position Sitting Respiration 16 Pulse 59 L Pulse Source NIBP Pulse Oximetry (%) 92 Oxygen Delivery Method room air Intake Visit Reasons: S/P [facility] 02/28 Podiatry Assistant Required: No Accompanied by: Daughter Is patient in pain?: No Allergies albuterol Allergy (Severe, Verified 03/17/24 10:36) Chest tightness/afib rvr digoxin Allergy (Intermediate, Verified 03/17/24 10:36) Dizziness, headache, fuzzy thoughts ragweed pollen Adverse Reaction (Intermediate, Verified 03/17/24 10:36) Nasal congestion Medications ???Medication ???Instructions ???Recorded ???Confirmed ???Type nitroglycerin 0.4 mg sublingual 0.4 mg sublingual Q5-15M PRN Chest 04/06/17 03/17/24 History tablet (Nitrostat) Pain balsalazide 750 mg capsule 2,250 mg PO TID stomach 07/11/19 03/17/24 History pantoprazole 40 mg tablet,delayed 40 mg PO DAILY stomach 01/26/20 03/17/24 History release acetaminophen 325 mg tablet 650 mg PO Q6H PRN Breakthrough 05/08/21 03/17/24 History (Tylenol) Pain, Mild levocetirizine 5 mg tablet 5 mg PO QHS 01/18/23 03/17/24 History apixaban 5 mg tablet (Eliquis) 2.5 mg PO BID blood thinner 10/28/23 02/28/24 History budesonide 9 mg tablet,delayed and 9 mg PO DAILY 02/28/24 03/17/24 History extended release vit C 250 mg-vit E 90 mg-zinc 40 1 tab PO BID 02/28/24 03/17/24 History mg-copper 1 td-fxesla-szyxfa capsule (PreserVision AREDS-2) aspirin 81 mg chewable tablet 81 mg PO BREAKFAST #0 tabs 02/29/24 03/17/24 Rx metoprolol tartrate 25 mg tablet 25 mg PO BID #60 tabs 02/29/24 03/17/24 Rx amiodarone 200 mg tablet 200 (more content not included)... Normal [facility] CBC W/Diff, Automatedon 12 0 Absolute Lymph 1.13 X10 3/uL Normal 0.83-4.51 [facility] Comment on above: Performed By: #### L 100.0100, L501.2300, L501.5200, L500.4050 #### [facility] [address] [place], [place], [id number] Absolute Neut 2.2 X10 3/uL Normal 2.0-7.7 [facility] Comment on above: Performed By: #### L 100.0100, L501.2300, L501.5200, L500.4050 #### [facility] [address] [place], [address] Basophils/100 WBC (Bld) 0.4 % Normal 0-1 [facility] Comment on above: Performed By: #### L 100.0100, L501.2300, L501.5200, L500.4050 #### [facility] [address] [place], [address] Eosinophils/100 WBC (Bld) 6.0 % High 0-5 [facility] Comment on above: Performed By: #### L 100.0100, L501.2300, L501.5200, L500.4050 #### [facility] [address] [place], [address] Erythrocyte distribution width (RBC) [Ratio] 14.9 % High 11.6-14.6 [facility] Comment on above: Performed By: #### L 100.0100, L501.2300, L501.5200, L500.4050 #### [facility] [address] [place], [address] Hematocrit (Bld) [Volume fraction] 35.6 % Low 40-54 [facility] Comment on above: Performed By: #### L 100.0100, L501.2300, L501.5200, L500.4050 #### [facility] [address] [place], [address] Hemoglobin (Bld) [Mass/Vol] 11.5 g/dL Low 13.0-16.5 [facility] Comment on above: Performed By: #### L 100.0100, L501.2300, L501.5200, L500.4050 #### [facility] [address] [place], [address] IG% 0.800 Normal 0.0-0.9 [facility] Comment on above: Result Comment: IG% - Immature Granulocytes (promyelocytes, myelocytes and metamyelocytes) > 1% indicates that a LEFT SHIFT is Present. Performed By: #### L 100.0100, L501.2300, L501.5200, L500.4050 #### [facility] [address] [place], [address] Lymphocytes/100 WBC (Bld) 23.2 % Normal 19-41 [facility] Comment on above: Performed By: #### L 100.0100, L501.2300, L501.5200, L500.4050 #### [facility] [address] [place], [address] MCH (RBC) [Entitic mass] 31.1 pg Normal 27.0-32.0 [facility] Comment on above: Performed By: #### L 100.0100, L501.2300, L501.5200, L500.4050 #### [facility] [address] [place], [address] MCHC (RBC) [Mass/Vol] 32.3 g/dL Normal 32-36 [facility] Comment on above: Performed By: #### L 100.0100, L501.2300, L501.5200, L500.4050 #### [facility] [address] [place], [address] MCV (RBC) [Entitic vol] 96.2 fL High 80-94 [facility] Comment on above: Performed By: #### L 100.0100, L501.2300, L501.5200, L500.4050 #### [facility] [address] [place], [address] Monocytes/100 WBC (Bld) 24.6 % High 0-10 [facility] Comment on above: Performed By: #### L 100.0100, L501.2300, L501.5200, L500.4050 #### [facility] [address] [place], [address] Neutrophils/100 WBC (Bld) 45.0 % Low 47-70 [facility] Comment on above: Performed By: #### L 100.0100, L501.2300, L501.5200, L500.4050 #### [facility] [address] [place], [address] Nucleated RBC (Bld) [#/Vol] 0 10*3/uL Normal 0-5 [facility] Comment on above: Performed By: #### L 100.0100, L501.2300, L501.5200, L500.4050 #### [facility] [address] [place], [address] Platelet mean volume (Bld) [Entitic vol] 9.1 fL Normal 6.2-12.0 [facility] Comment on above: Performed By: #### L 100.0100, L501.2300, L501.5200, L500.4050 #### [facility] [address] [place], [address] Platelets (Bld) [#/Vol] 243 10*3/uL Normal 150-450 [facility] Comment on above: Performed By: #### L 100.0100, L501.2300, L501.5200, L500.4050 #### [facility] [address] [place], [address] RBC (Bld) [#/Vol] 3.70 10*6/uL Low 4.6-6.2 [facility] Comment on above: Performed By: #### L 100.0100, L501.2300, L501.5200, L500.4050 #### [facility] [address] [place], [address] RDW SD 53.5 fl High 35.1-43.9 [facility] Comment on above: Performed By: #### L 100.0100, L501.2300, L501.5200, L500.4050 #### [facility] [address] [place], [address] WBC (Bld) [#/Vol] 4.9 10*3/uL Normal 4.4-11.0 [facility] Comment on above: Performed By: #### L 100.0100, L501.2300, L501.5200, L500.4050 #### [facility] [address] [place], [address] Comprehensive Metabolic Prof [facility] 02-29-2024 Albumin [Mass/Vol] 2.8 g/dL Low 3.2-5.0 [facility] Comment on above: Performed By: #### L 100.0100, L501.2300, L501.5200, L500.4050 #### [facility] [address] [place], [address] Albumin/Globulin [Mass ratio] 0.8 {ratio} Low 0.9-2.4 [facility] Comment on above: Performed By: #### L 100.0100, L501.2300, L501.5200, L500.4050 #### [facility] [address] [place], [address] ALK P 52 U/L Normal 45-117 [facility] Comment on above: Performed By: #### L 100.0100, L501.2300, L501.5200, L500.4050 #### [facility] [address] [place], [address] ALT [Catalytic activity/Vol] 13 U/L Low 16-61 [facility] Comment on above: Performed By: #### L 100.0100, L501.2300, L501.5200, L500.4050 #### [facility] [address] [place], [address] AST [Catalytic activity/Vol] 20 U/L Normal 15-37 [facility] Comment on above: Performed By: #### L 100.0100, L501.2300, L501.5200, L500.4050 #### [facility] [address] [place], [address] Bilirubin [Mass/Vol] 1.10 mg/dL High 0.20-1.00 [facility] Comment on above: Result Comment: For patients on eltrombopag therapy, use of Dimension [place] TBIL is not recommended. Performed By: #### L 100.0100, L501.2300, L501.5200, L500.4050 #### [facility] [address] [place], [address] BUN/CRE 17.7 RATIO Normal 10-20 [facility] Comment on above: Performed By: #### L 100.0100, L501.2300, L501.5200, L500.4050 #### [facility] [address] [place], [address] CA,Total 7.9 mg/dL Low 8.5-10.1 [facility] Comment on above: Performed By: #### L 100.0100, L501.2300, L501.5200, L500.4050 #### [facility] [address] [place], [address] Chloride [Moles/Vol] 108 mmol/L High 98-107 [facility] Comment on above: Performed By: #### L 100.0100, L501.2300, L501.5200, L500.4050 #### [facility] [address] [place], [address] CO2 [Moles/Vol] 26.0 mmol/L Normal 21.0-32.0 [facility] Comment on above: Performed By: #### L 100.0100, L501.2300, L501.5200, L500.4050 #### [facility] [address] [place], [address] Creatinine [Mass/Vol] 0.68 mg/dL Low 0.70-1.30 [facility] Comment on above: Result Comment: The validity of the calculated GFR GFRAA in patients over 70 years has not been determined. Clinical correlation is essential. Performed By: #### L 100.0100, L501.2300, L501.5200, L500.4050 #### [facility] [address] [place], [address] ECRCL 56.99 ml/min Normal [facility] Comment on above: Performed By: #### L 100.0100, L501.2300, L501.5200, L500.4050 #### [facility] [address] [place], [address] EST GFR - AA 143 mL/min Normal >60 [facility] Comment on above: Result Comment: Afri can Stateless GFR Calc Performed By: #### L 100.0100, L501.2300, L501.5200, L500.4050 #### [facility] [address] [place], [address] GAP 5 Normal 5-15 [facility] Comment on above: Performed By: #### L 100.0100, L501.2300, L501.5200, L500.4050 #### [facility] [address] [place], [address] GFR/1.73 sq M.predicted among non-blacks MDRD (S/P/Bld) [Vol rate/Area] 118 mL/min/{1.73_m2} Normal >60 [facility] Comment on above: Result Comment: Non- GFR Calc Performed By: #### L 100.0100, L501.2300, L501.5200, L500.4050 #### [facility] [address] [place], [address] Globulin (S) [Mass/Vol] 3.3 g/dL Normal 2.2-4.2 [facility] Comment on above: Performed By: #### L 100.0100, L501.2300, L501.5200, L500.4050 #### [facility] [address] [place], [address] Glucose [Mass/Vol] 101 mg/dL Normal 74-106 [facility] Comment on above: Result Comment: Fast ing Glucose result from 100 to 125 mg/dL suggests IMPAIRED HOMEOSTASIS per A.D.A. criteria. Performed By: #### L 100.0100, L501.2300, L501.5200, L500.4050 #### [facility] [address] [place], [address] Potassium [Moles/Vol] 3.6 mmol/L Normal 3.5-5.1 [facility] Comment on above: Performed By: #### L 100.0100, L501.2300, L501.5200, L500.4050 #### [facility] [address] [place], [address] Sodium [Moles/Vol] 139 mmol/L Normal 136-145 [facility] Comment on above: Performed By: #### L 100.0100, L501.2300, L501.5200, L500.4050 #### [facility] [address] [place], [address] T PROT 6.1 g/dL Low 6.4-8.2 [facility] Comment on above: Performed By: #### L 100.0100, L501.2300, L501.5200, L500.4050 #### [facility] [address] [place], [address] Urea nitrogen [Mass/Vol] 12 mg/dL Normal 7-18 [facility] Comment on above: Performed By: #### L 100.0100, L501.2300, L501.5200, L500.4050 #### [facility] [address] [place], [address] Magnesiumon 02-29-2024 Magnesium [Mass/Vol] 1.9 mg/dL Normal 1.6-2.6 [facility] Comment on above: Performed By: #### L 100.0100, L501.2300, L501.5200, L500.4050 ####[facility] [address] [place], [address] Phosphoruson 02-29-2024 Phosphate [Mass/Vol] 2.6 mg/dL Normal 2.5-4.9 [facility] Comment on above: Performed By: #### L 100.0100, L501.2300, L501.5200, L500.4050 #### [facility] [address] [place], [address] 12 Lead EKGon 02-28-2024 12 Lead EKG [facility] [address] [place] [address] 12 Lead EKG 02/28/24 0221 MR#: [id number] Acct: [id number] Name: IRWIN CORDERO Rep #: [id number] : 1940 83 From: Sofía Morley MD Attending Dr: Dr. Mariana Rich DO Status: DIS I NO Ordering Dr: Mariana Rich DO Date: 02/28/24 Location: [facility] Sex: M C Admitted: 02/28/24 Test Reason : Blood Pressure : */* mmHG Vent. Rate : 142 BPM Atrial Rate : * BPM P-R Int : * ms QRS Dur : 90 ms QT Int : 304 ms P-R-T Axes : * -12 73 degrees QTcB Int : 467 ms Critical Test Result: High HR Atrial fibrillation with rapid ventricular response Nonspecific ST-T changes Abnormal ECG Confirmed by ALIYAH MORLEY MD ([id number]), script editor NEERAJ MEJIAS ([id number]) on 03/08/2024 1:42:48 PM Referred By: Confirmed By: ALIYAH MORLEY MD 03/08/24 1342 Date Sofía Morley MD CC: Dr. Mariana Rich DO; Dr. Marcelo Mccullough MD Signed Normal [facility] 12 Lead EKG [facility] [address] [place] [address] 12 Lead EKG 02/28/24 1749 MR#: [id number] Acct: [id number] Name: IRWIN CORDERO Rep #: [id number] : 1940 83 From: Tyson Miller MD Attending Dr: Dr. Mariana Rich DO Status: ADM I NO Ordering Dr: Khari Lindsay DO Date: 02/28/24 Location: [facility] Sex: M C Admitted: 02/28/24 Test Reason : AF Blood Pressure : */* mmHG Vent. Rate : 70 BPM Atrial Rate : 70 BPM P-R Int : 174 ms QRS Dur : 84 ms QT Int : 418 ms P-R-T Axes : 47 16 71 degrees QTcB Int : 451 ms Normal sinus rhythm Normal ECG When compared with ECG of 28-Feb-2024 02:21, MANUAL COMPARISON REQUIRED DATA IS UNCONFIRMED Confirmed by TYSON MILLER MD ([id number]), script editor ARNOLD AHUMADA ([id number]) on 02/29/2024 8:21:57 AM Referred By: PAUL Confirmed By: TYSON MILLER MD 02/29/24 0822 Date Tyson Miller MD CC: Dr. Mariana Rich DO; Dr. Marcelo Mccullough MD; Khari Lindsay DO Signed Normal [facility] Basic Metabolic Profile (BMP )on 02-28-2024 BUN/CRE 18.5 RATIO Normal 10-20 [facility] Comment on above: Performed By: #### L 500.4050, L501.9520, L506.1000, L100.0100 #### [facility] [address] [place], [address] CA,Total 9.1 mg/dL Normal 8.5-10.1 [facility] Comment on above: Performed By: #### L 500.4050, L501.9520, L506.1000, L100.0100 #### [facility] [address] [place], [address] Chloride [Moles/Vol] 105 mmol/L Normal 98-107 [facility] Comment on above: Performed By: #### L 500.4050, L501.9520, L506.1000, L100.0100 #### [facility] [address] [place], [address] CO2 [Moles/Vol] 27.0 mmol/L Normal 21.0-32.0 [facility] Comment on above: Performed By: #### L 500.4050, L501.9520, L506.1000, L100.0100 #### [facility] [address] [place], [address] Creatinine [Mass/Vol] 0.81 mg/dL Normal 0.70-1.30 [facility] Comment on above: Result Comment: The validity of the calculated GFR GFRAA in patients over 70 years has not been determined. Clinical correlation is essential. Performed By: #### L 500.4050, L501.9520, L506.1000, L100.0100 #### [facility] [address] [place], [address] ECRCL 56.70 ml/min Normal [facility] Comment on above: Performed By: #### L 500.4050, L501.9520, L506.1000, L100.0100 #### [facility] [address] [place], [address] EST GFR - AA 116 mL/min Normal >60 [facility] Comment on above: Result Comment: Afri can Stateless GFR Calc Performed By: #### L 500.4050, L501.9520, L506.1000, L100.0100 #### [facility] [address] [place], [address] GAP 7 Normal 5-15 [facility] Comment on above: Performed By: #### L 500.4050, L501.9520, L506.1000, L100.0100 #### [facility] [address] [place], [address] GFR/1.73 sq M.predicted among non-blacks MDRD (S/P/Bld) [Vol rate/Area] 96 mL/min/{1.73_m2} Normal >60 [facility] Comment on above: Result Comment: Non- GFR Calc Performed By: #### L 500.4050, L501.9520, L506.1000, L100.0100 #### [facility] [address] [place], [address] Glucose [Mass/Vol] 131 mg/dL High 74-106 [facility] Comment on above: Result Comment: Fast ing Glucose result greater than or equal to 126 mg/dL suggests DIABETES MELLITUS per A.D.A. criteria. Performed By: #### L 500.4050, L501.9520, L506.1000, L100.0100 #### [facility] [address] [place], [address] Potassium [Moles/Vol] 3.7 mmol/L Normal 3.5-5.1 [facility] Comment on above: Performed By: #### L 500.4050, L501.9520, L506.1000, L100.0100 #### [facility] [address] [place], [address] Sodium [Moles/Vol] 139 mmol/L Normal 136-145 [facility] Comment on above: Performed By: #### L 500.4050, L501.9520, L506.1000, L100.0100 #### [facility] [address] [place], [address] Urea nitrogen [Mass/Vol] 15 mg/dL Normal 7-18 [facility] Comment on above: Performed By: #### L 500.4050, L501.9520, L506.1000, L100.0100 #### [facility] [address] [place], [address] CBC W/Diff, Automatedon 12-0 Absolute Lymph 2.36 X10 3/uL Normal 0.83-4.51 [facility] Comment on above: Performed By: #### L 500.4050, L501.9520, L506.1000, L100.0100 #### [facility] [address] [place], [address] Absolute Neut 2.6 X10 3/uL Normal 2.0-7.7 [facility] Comment on above: Performed By: #### L 500.4050, L501.9520, L506.1000, L100.0100 #### [facility] [address] [place], [address] Basophils/100 WBC (Bld) 0.6 % Normal 0-1 [facility] Comment on above: Performed By: #### L 500.4050, L501.9520, L506.1000, L100.0100 #### [facility] [address] [place], [address] Eosinophils/100 WBC (Bld) 5.4 % High 0-5 [facility] Comment on above: Performed By: #### L 500.4050, L501.9520, L506.1000, L100.0100 #### [facility] [address] [place], [address] Erythrocyte distribution width (RBC) [Ratio] 14.7 % High 11.6-14.6 [facility] Comment on above: Performed By: #### L 500.4050, L501.9520, L506.1000, L100.0100 #### [facility] [address] [place], [address] Hematocrit (Bld) [Volume fraction] 39.4 % Low 40-54 [facility] Comment on above: Performed By: #### L 500.4050, L501.9520, L506.1000, L100.0100 #### [facility] [address] [place], [address] Hemoglobin (Bld) [Mass/Vol] 12.9 g/dL Low 13.0-16.5 [facility] Comment on above: Performed By: #### L 500.4050, L501.9520, L506.1000, L100.0100 #### [facility] [address] [place], [address] IG% 1.500 High 0.0-0.9 [facility] Comment on above: Result Comment: IG% - Immature Granulocytes (promyelocytes, myelocytes and metamyelocytes) > 1% indicates that a LEFT SHIFT is Present. Performed By: #### L 500.4050, L501.9520, L506.1000, L100.0100 #### [facility] [address] [place], [address] Lymphocytes/100 WBC (Bld) 34.4 % Normal 19-41 [facility] Comment on above: Performed By: #### L 500.4050, L501.9520, L506.1000, L100.0100 #### [facility] [address] [place], [address] MCH (RBC) [Entitic mass] 31.5 pg Normal 27.0-32.0 [facility] Comment on above: Performed By: #### L 500.4050, L501.9520, L506.1000, L100.0100 #### [facility] [address] [place], [address] MCHC (RBC) [Mass/Vol] 32.7 g/dL Normal 32-36 [facility] Comment on above: Performed By: #### L 500.4050, L501.9520, L506.1000, L100.0100 #### [facility] [address] [place], [address] MCV (RBC) [Entitic vol] 96.1 fL High 80-94 [facility] Comment on above: Performed By: #### L 500.4050, L501.9520, L506.1000, L100.0100 #### [facility] [address] [place], [address] Monocytes/100 WBC (Bld) 20.1 % High 0-10 [facility] Comment on above: Performed By: #### L 500.4050, L501.9520, L506.1000, L100.0100 #### [facility] [address] [place], [address] Neutrophils/100 WBC (Bld) 38.0 % Low 47-70 [facility] Comment on above: Performed By: #### L 500.4050, L501.9520, L506.1000, L100.0100 #### [facility] [address] [place], [address] Nucleated RBC (Bld) [#/Vol] 0 10*3/uL Normal 0-5 [facility] Comment on above: Performed By: #### L 500.4050, L501.9520, L506.1000, L100.0100 #### [facility] [address] [place], [address] Platelet mean volume (Bld) [Entitic vol] 9.0 fL Normal 6.2-12.0 [facility] Comment on above: Performed By: #### L 500.4050, L501.9520, L506.1000, L100.0100 #### [facility] [address] [place], [address] Platelets (Bld) [#/Vol] 270 10*3/uL Normal 150-450 [facility] Comment on above: Performed By: #### L 500.4050, L501.9520, L506.1000, L100.0100 #### [facility] [address] [place], [address] RBC (Bld) [#/Vol] 4.10 10*6/uL Low 4.6-6.2 [facility] Comment on above: Performed By: #### L 500.4050, L501.9520, L506.1000, L100.0100 #### [facility] [address] [place], [address] RDW SD 51.8 fl High 35.1-43.9 [facility] Comment on above: Performed By: #### L 500.4050, L501.9520, L506.1000, L100.0100 #### [facility] [address] [place], [address] WBC (Bld) [#/Vol] 6.9 10*3/uL Normal 4.4-11.0 [facility] Comment on above: Performed By: #### L 500.4050, L501.9520, L506.1000, L100.0100 #### [facility] [address] [place], [address] Cardiac Cath Diagnosticon Cardiac Cath Diagnostic [facility] Imaging Services [address] [place] [address] Cardiac Cath Diagnostic MR#: [id number] Acct: [id number] Name: IRWIN CORDERO Rep #: [id number] : 1940 83 From: Tyson Miller MD PCP: Dr. Marcelo Mccullough MD Status:ADM EULA Patient Name: IRWIN CORDERO Study Date: 02/28/2024 Performing: Tyson Miller MD Ht: 62 inches 157.48 cm : 1940 Wt: 150.8 lbs 68.4 kg Age: 83 Gender: male BSA: 1.7 PROCEDURE(S) PERFORMED DC01-(39855)LHC/COR/LV CLINICAL PROFILE AND INDICATIONS Indications: Cardiac Arrythmia Heart Failure: None Stress/Imaging Stress/Image Study Performed: No CAD Presentations: Symptom unlikely to be ischemic. CONCLUSIONS Diffuse coronary disease with no high-grade stenosis previously placed stent is noted to be patent preserved ejection fraction. RECOMMENDATIONS Medical therapy DESCRIPTION OF PROCEDURE The patient arrived to the procedure lab. The risks and benefits of the procedure as well as a full description of our services here and current unavailability of surgical backup were fully explained to the patient and/or their significant other prior to the catheterization. The Timeout was completed, verifying the correct patient and procedure. The patient's procedural site was prepped and draped in the usual fashion. Local anesthetic was given subcutaneously to right radial region with Lidocaine 2%. Using a modified Seldinger technique, arterial access was obtained via the right radial artery, a 6Fr sheath was inserted. Left Coronary Artery selective angiography was performed in multiple views using a 5 Fr. 4.0 [place] catheter. Right Coronary Artery selective angiography was then performed in multiple views using a 5 Fr. JR 4 catheter. Left Ventriculography was performed in DALY projection using a 5 Fr. Pigtail catheter. LV to AO pullback pressures were then recorded.The arterial sheath was pulled and a TR Band was applied for hemostasis CORONARY ANGIOGRAPHY DOMINANCE: Right Dominant LEFT HEART ASSESSMENT Left Ventricular Ejection Fraction: by LV Gram 75 % Normal LV wall motion Normal Left Ventricular systolic function LEFT MAIN: Mild luminal irregularities LEFT ANTERIOR DESCENDING ARTERY: Medium size vessel with mild calcification with diffuse disease of 30 to 40% stenosis. CIRCUMFLEX ARTERY: Nondominant vessel with mild diffuse disease with first obtuse marginal branch with moderate diffuse disease in the second and third obtuse marginal branches which are large with mild diffuse disease but no high-grade stenosis RIGHT CORONARY ARTERY: Dominant vessel previously stented in the proximal to mid segment with a stent noted to be patent with minimal in-stent stenosis and diffuse 30 to 40% disease noted. COMPLICATIONS No Complications PROCEDURE MEDICATIONS Versed .5 mg IV Fentanyl 25 mcg IV Oxygen: 2 L/min via nasal cannula Heparin given IA 02/28/2024 11:01:05 Verapamil 2.5mg, 2000 units of Heparin given IA 02/28/2024 11:01:05 SUMMARY OF HEMODYNAMIC DATA Time AIR REST ECG 10:49:44 AO 117/13 (31) SA 11:00:22 LV 112/11, 15 11:06:52 LV 111/12, 18 11:07:00 LV 106/20, 27 11:07:28 LV 107/14, 19 11:07:36 LVp 105/13, 20 11:07:41 AOp 0/-20 (43) 11:07:48 Signed By Tyson Miller MD On 02/28/2024 11:15:32 Signed By Tyson Miller MD On 02/28/2024 11:15:21 Tyson Miller MD 02/28/24 1116 Date [facility] Signature: Date (if indicated) CC: Dr. Tyson Miller MD; Dr. Mariana Rich DO; Dr. Marcelo Mccullough MD Date Dictated: 02/28/24 1059 Date Transcribed: 02/28/24 1115 Tool And Die Supervisor: [place] Signed Normal [facility] Chest 1 View (Portable)on Chest 1 View (Portable) [facility] Imaging Services [address] [place] [address] Chest 1 View (Portable) MR#: [id number] Acct: [id number] Name: IRWIN CORDERO Rep #: [id number] : 1940 M 83 From: Aki Badillo MD PCP: Dr. Marcelo Mccullough MD Status: REG ER Study: Chest 1 View (Portable) Date of Exam: 02/28/24 Exam# [id number] Ordering Dr: Khari Lindsay DO [id number] EXAM: XR CHEST, 1 VIEW CLINICAL INDICATION: dyspnea TECHNIQUE: Frontal view of the chest. COMPARISON: Two-view chest 10/31/2023 FINDINGS: LUNGS AND PLEURAL SPACES: Bibasilar atelectasis. No pneumothorax. No effusion. HEART: Unremarkable. Cardiac silhouette not enlarged. MEDIASTINUM: Central airways and mediastinal contour are unremarkable. BONES/JOINTS: Unremarkable. No acute fracture. SOFT TISSUES: Unremarkable. RAD/Chest 1 View (Portable) IMPRESSION: Bibasilar atelectasis. Otherwise unremarkable exam. Electronically Signed: Aki Badillo MD at 3:04 EST , CC: Dr. Marcelo Mccullough MD; Khari Lindsay DO Tool And Die Supervisor: Signed Normal [facility] Consultation - Cardiologyon 02-28-2024 Consultation - Cardiology [facility] Medical Records Department [address] [place] [address] Consultation - Cardiology 02/28/24 0906 MR#: [id number] Acct: [id number] Name: IRWIN CORDERO Rep #: [id number] : 1940 83 From: Tyson Miller MD PCP: Dr. Marcelo Mccullough MD Status:ADM EULA Location: [place] [address] Assessment Plan Assessment/Plan (1) Paroxysmal atrial fibrillation with rapid ventricular response: PLAN: He does present with atrial fibrillation with a rapid ventricular response rate. He is currently on diltiazem. The plan will be to convert him to a beta-liang and increase the dose and possibly add amiodarone with the hope of preventing these episodes of atrial fibrillation. His last echocardiogram did demonstrate preserved ejection fraction. He will continue to be anticoagulated. (2) Chest pain: PLAN: He presents with chest discomfort at this time which is concerning for angina. My recommendation will be for us to exclude obstructive coronary disease and depending on the findings further recommendations will be made. Addendum: 11:18 AM. Cardiac catheterization demonstrated minimal disease with previously placed stents in the right coronary artery which is noted to be patent. The plan to be to continue aggressive medical therapy. (3) Hypertension: QUALIFIERS: Hypertension type: unspecified Qualified Code(s): I10 - Essential (primary) hypertension PLAN: His blood pressure appears to be under good control and I would not make any major changes. (4) Atherosclerosis of coronary artery of [place] heart without angina pectoris: QUALIFIERS: Coronary Disease-Associated Artery/Lesion type: [place] artery Qualified Code(s): I25.10 - Atherosclerotic heart disease of [place] coronary artery without angina pectoris PLAN: He does have previously known atherosclerotic cardiovascular disease. The plan at this time will be to perform a cardiac catheterization and depending on the findings further recommendations will be made. ( see results as noted above.) (5) Hyperlipidemia: QUALIFIERS: Hyperlipidemia type: unspecified Qualified Code(s): E78.5 - Hyperlipidemia, unspecified PLAN: He will continue with risk factor modification with lipid-lowering medication. HPI Consult Data Date of Consult: 02/28/24 HPI Narrative HPI Narrative: IRWIN CORDERO, is a 83 M who presents to the emergency room complaining of chest discomfort which she says was central and then radiated to both arms and his back. He called his sons about this and they suggested that he come to the emergency room. Interestingly he apparently had an upper respiratory tract infection few days ago went to the urgent care was put on antibiotics as well as albuterol and he thinks this triggered his atrial fibrillation. He does have a previous history of paroxysmal atrial fibrillation. In addition he has a history of hypertension, hyperlipidemia, coronary artery disease status post cardiac catheterization and angioplasty and stenting of the proximal right coronary artery in September 2016. His LAD had a questionable lesion for which she underwent stress testing which did not demonstrate any evidence of ischemia. Circumflex artery did not demonstrate any significant disease. He does have a history of previous DVT as well for which she has been on Eliquis and aspirin. He had presented to the emergency room in February 2022 with chest discomfort was noted to be in atrial fibrillation with rapid ventricular response rate for which she converted to sinus rhythm on intravenous diltiazem. His last echocardiogram performed at that time demonstrated preserved ejection fraction and normal atrial sizes cardiac enzymes were negative. On this visit his electrocardiogram demonstrated atrial fibrillation with a rapid ventricular response rate and ST depression noted in V4 through V6. [facility] Medical History Atherosclerosis of coronary artery of [place] heart without angina pectoris A-fib Paroxysmal atrial fibrillation Anemia New onset a-fib Heartburn Bronchitis PUD (peptic ulcer disease) Deep vein thrombosis of left lower extremity (2012) Essential (primary) hypertension DDD (degenerative disc disease) Non-ST elevation (NSTEMI) myocardial infarction (10/03/16) PND (post-nasal drip) Multiple allergies Cough Prostate enlargement Stomach ulcer GERD (gastroesophageal reflux disease) Glaucoma Skin cancer Unstable angina Hyperlipidemia Crohn disease Home Medications ???Medication ???Instructions ???Recorded ???Last Taken ???Type nitroglycerin 0.4 mg sublingual 0.4 mg sublingual Q5-15M PRN Chest 04/06/17 Unknown History tablet (Nitrostat) Pain balsalazide 750 mg capsule 2,250 mg PO TID stomach 07/11/19 02/27/24 History pantoprazole 40 mg tablet,delayed 40 mg PO DAILY stomach 01/26/20 02/20/22 09:00 History release (more content not included)... Normal [facility] Echo Complete W/ Contraston 02-28-2024 Echo Complete W/ Contrast [facility] Cardiovascular Services [address] [place] [address] Echo Complete W/ Contrast 02/28/24 0936 MR#: [id number] Acct: [id number] Name: IRWIN CORDERO Rep #: [id number] : 1940 83 From: Tyson Miller MD Attending Dr: Dr. Mariana Rich, DO Status: ADM I NO Ordering Dr: Jaime Servin DO Date: 02/28/24 Location: [facility] Sex: M C Admitted: 02/28/24 Reason For Study: Afib/Flutter Procedure This was a 2D Doppler, Color Flow transthoracic echocardiogram. The study was technically difficult. Contrast injection was performed. Exam performed portable in patient room. Left Ventricle Normal LV size. Left ventricular systolic function is normal. The left ventricular ejection fraction is 55 %. No regional wall motion abnormalities noted. Right Ventricle Normal RV size. Normal systolic function. Atria Normal left atrium. Normal right atrium. Mitral Valve There is mild mitral annular calcification. Aortic Valve Trisinus/trileaflet aortic valve. Pulmonic Valve Normal pulmonic valve. Great Vessels Normal aortic root. The pulmonary artery is normal size. Inferior vena cava collapse with sniff. Pericardium/Pleural No pericardial effusion. Medication Diluted definity 2ml given slow IV push to enhance endocardial definition. MMode/2D Measurements Calculations LVIDd: 3.6 cm IVSd: 1.2 cm LAV(MOD-bp): 52.5 ml LVIDs: 2.3 cm LVPWd: 0.90 cm LAV(MOD-bp) Indexed: 31.0 ml/m2 RVDd: 4.5 cm FS: 36.0 % LAV(MOD-sp2): 43.8 ml LAV(MOD-sp4): 61.2 ml SV(MOD-sp4): 33.9 ml SV(sp4-el): 37.6 ml LVAd ap4: 21.9 cm2 LVLd ap4: 7.3 cm SI(MOD-sp4): 20.0 ml/m2 EDV(MOD-sp4): 53.2 ml EDV(sp4-el): 55.9 ml LVAs ap4: 11.6 cm2 LVLs ap4: 6.2 cm ESV(MOD-sp4): 19.3 ml ESV(sp4-el): 18.3 ml EF(MOD-sp4): 63.8 % EF(sp4-el): 67.2 % LA A4 area: 20.2 cm2 LA dimension(2D): 4.2 cm RA A4 area: 17.9 cm2 Doppler Measurements Calculations MV E max yisel: 98.8 cm/sec MV V2 max: 119.7 cm/sec LV V1 max: 72.4 cm/sec MV max P.8 mmHg LV V1 max P.1 mmHg MV V2 mean: 54.7 cm/sec MV mean P.6 mmHg MV V2 VTI: 25.3 cm PA V2 max: 59.5 cm/sec TR max yisel: 262.8 cm/sec TR max P.6 mmHg ECHO/Echo Complete W/ Contrast Interpretation Summary Normal LV size. Left ventricular systolic function is normal. The left ventricular ejection fraction is 55 %. There is mild mitral annular calcification. Contrast injection was performed. Ordering Physician: Jaime Servin Referring Physician: Marcelo Mccullough Chi Performed By: Tank Kay RCS 02/28/24 1329 Date Tyson Miller MD CC: Dr. Jaime Servin DO; Dr. Mariana Rich DO; Dr. Marcelo Mccullough MD Date Dictated: 02/28/24935 Date Transcribed: 02/28/241328 Tool And Die Supervisor: Signed Normal [facility] Emergency Department Summary on 02-28-2024 Emergency Department Summary [facility] Medical Records Department [address] [place] [address] Emergency Department Summary 02/28/24 MR#: [id number] Acct: [id number] Name: IRWIN CORDERO Rep #: [id number] : 1940 83 From: Khari Lindsay DO PCP: Dr. Marcelo Mccullough MD Status:REG ER Location: ED HPI History of Present Illness Chief Complaint: Chest Pain Informant: patient, family and EMS Narrative Narrative: Patient is an 83-year-old male with past medical history of hypertension coronary artery disease hyperlipidemia and paroxysmal atrial fibrillation. Patient reports he has been in A-fib 3 or 4 times in his life and has required cardioversion and admission. Family reports his last admission was roughly a year and a half ago secondary to atrial fibrillation that would not respond to medical or electrical cardioversion. At that time the nidus for his breakthrough A-fib was most likely Trelegy. The patient has been sick recently with nasal congestion and cough and went to an urgent care the other day. He was placed on an albuterol inhaler secondary to this. According to patient and family he used the albuterol inhaler Wednesday afternoon/evening and then developed his sensation of heart racing and chest discomfort. Secondary to concern this could be cardiac in nature EMS was called and he was brought in for evaluation [facility] Medical History A-fib Paroxysmal atrial fibrillation Anemia New onset a-fib Heartburn Bronchitis PUD (peptic ulcer disease) Deep vein thrombosis of left lower extremity (2012) Essential (primary) hypertension DDD (degenerative disc disease) Atherosclerosis of coronary artery of [place] heart without angina pectoris Non-ST elevation (NSTEMI) myocardial infarction (10/03/16) PND (post-nasal drip) Multiple allergies Cough Prostate enlargement Stomach ulcer GERD (gastroesophageal reflux disease) Glaucoma Skin cancer Unstable angina Hyperlipidemia Crohn disease Home Medications ???Medication ???Instructions ???Recorded ???Last Taken ???Type nitroglycerin 0.4 mg sublingual 0.4 mg sublingual Q5-15M PRN Chest 04/06/17 Unknown History tablet (Nitrostat) Pain balsalazide 750 mg capsule 2,250 mg PO BID stomach 07/11/19 02/20/22 22:00 History pantoprazole 40 mg tablet,delayed 40 mg PO DAILY stomach 01/26/20 02/20/22 09:00 History release acetaminophen 325 mg tablet 650 mg PO Q6H PRN Breakthrough 05/08/21 Unknown History (Tylenol) Pain, Mild albuterol sulfate 90 mcg/actuation 2 puff inhalation Q4H PRN PRN 10/26/22 Unknown Rx aerosol inhaler (Ventolin HFA) Wheezing ##1 levocetirizine 5 mg tablet 5 mg PO QHS 01/18/23 Unknown History atorvastatin 20 mg tablet 10 mg PO QHS cholesterol 03/24/23 Unknown History metoprolol tartrate 25 mg tablet 12.5 mg (1/2 x 25 mg) PO BID #30 07/13/23 Unknown Rx tabs apixaban 5 mg tablet (Eliquis) 2.5 mg PO BID blood thinner 10/28/23 Unknown History doxycycline hyclate 100 mg capsule 100 mg PO BID 7 days #14 caps 02/27/24 Unknown Rx Allergy/AdvReac Type Severity Reaction Status Date / Time digoxin AdvReac Intermediate Dizziness, Verified 02/28/24 02:28 headache, fuzzy thoughts ragweed pollen AdvReac Intermediate Nasal Verified 02/28/24 02:28 congestion Family History Father Heart disease Mother CVA (cerebral vascular accident) Surgical History History of dental surgery (04/15/21) History of coronary artery stent placement (10/05/16) Previous back surgery H/O colonoscopy Social History household members: spouse Smoking Status: Former smoker second hand exposure: No alcohol intake: never substance use type: does not use ROS ROS ED Constitutional Constitutional ED: Denies chills or fever(s) Eyes Eyes: Denies blurry vision, change in vision or diplopia ENT ENT ED: Denies sore throat Cardiovascular Cardiovascular: Reports chest pain, palpitations and racing heartbeat Respiratory/Chest Respiratory/Chest: Reports cough and dyspnea Gastrointestinal Gastrointestinal: Denies abdominal pain, diarrhea, nausea or vomiting Genitourinary Genitourinary ED: Denies dysuria Musculoskeletal Musculoskeletal: Denies myalgias Integumentary Denies rash Neurologic Neurologic: Denies headache(s) Hematologic/Lymphatic Hematologic/Lymphatic: Denies easy bleeding or easy bruising Allergic/Immunologic Allergic/Immunologic ED: Denies mouth swelling or tongue swelling EXAM Physical Exam Const Vital Signs: 02/28/24 02:19 02/28/24 02:24 02/28/24 02:31 Temperature 98.8 F Temperature Source Temporal Pulse Rate 144 H 139 H Pulse Rate [1 (more content not included)... Normal [facility] H AND P Exam - Hospitaliston 02-28-2024 H&P Exam - Hospitalist [facility] Medical Records Department [address] [place] [address] H P Exam - Hospitalist 02/28/24 0558 MR#: [id number] Acct: [id number] Name: IRWIN CORDERO Rep #: [id number] : 1940 83 From: Jaime Servin DO PCP: Dr. Marcelo Mccullough MD Status:ADM EULA Location: [place] [address] HPI - General General Date of Admission: 02/28/24 Date of Service: 02/28/24 Chief Complaint: Chest Pain, Palpitations and Cough. HPI Narrative IRWIN CORDERO, is a 83 M with a past medical history of essential hypertension; on metoprolol, hyperlipidemia; on atorvastatin, overweight; with BMI of 27.6 this admission, PAF; on apixaban with 3-4 episodes of refractory RVR that required electrical cardioversion and admission after Trelegy Ellipta administration ( 18 months ago) followed by Dr. Miller of [facility], CAD; with history of NSTEMI s/p RCA stent (2016) on prn SL NTG with LVEF 65% (10/2022), history of LLE DVT; on apixaban which was recently stopped and switched to oral BASA due to intestinal bleeding, listed allergy digoxin (dizziness, headache and fuzzy thoughts), chronic anemia, glaucoma, history of skin cancer, BPH, history of Crohn's disease; on balsalazide, GERD; with history of PUD on pantoprazole, history of colonoscopy, OA; with DDD and history of back surgery x 2 (2000) (2008) and recently diagnosed URI; with patient recently started on oral doxycycline and prn albuterol inhaler who presents to [facility] ER complaining of chest pain, palpitations and cough. Mr. Li reports his symptoms began a one day prior to admission when he developed symptoms of a respiratory infection with bronchitis and was started with oral doxycycline with an as needed albuterol inhaler. Unfortunately, after he used his albuterol inhaler he noted persistent severe tachycardia with moderate chest pain that was 5/10 and with nothing seeming to make the chest pain or tachycardia better so EMS was activated. Mr. Cordero denied associated fever, chills, nausea, vomiting or diaphoresis but he did admit to severe heart racing, palpitations and SOB. In the ER he was extensively treated with IV metoprolol and IV diltiazem with failed medical cardioversion and then three attempts at electrical cardioversion after conscious sedation with IV midazolam and IV propofol bolus without success with patient still in Atrial Fibrillation; with RVR likely due to Adverse Drug Reaction to recently started albuterol inhaler used as part of his treatment for recently diagnosed URI and he was then admitted to the PCU under observation status for ongoing care for a stay that is expected to be less than 2 midnights. [facility] Medical History (Updated 02/28/24 @ 06:[address] Jaime Servin, DO) Atherosclerosis of coronary artery of [place] heart without angina pectoris A-fib Paroxysmal atrial fibrillation Anemia New onset a-fib Heartburn Bronchitis PUD (peptic ulcer disease) Deep vein thrombosis of left lower extremity (2012) Essential (primary) hypertension DDD (degenerative disc disease) Non-ST elevation (NSTEMI) myocardial infarction (10/03/16) PND (post-nasal drip) Multiple allergies Cough Prostate enlargement Stomach ulcer GERD (gastroesophageal reflux disease) Glaucoma Skin cancer Unstable angina Hyperlipidemia Crohn disease Home Medications ???Medication ???Instructions ???Recorded ???Last Taken ???Type nitroglycerin 0.4 mg sublingual 0.4 mg sublingual Q5-15M PRN Chest 04/06/17 Unknown History tablet (Nitrostat) Pain balsalazide 750 mg capsule 2,250 mg PO TID stomach 07/11/19 02/27/24 History pantoprazole 40 mg tablet,delayed 40 mg PO DAILY stomach 01/26/20 02/20/22 09:00 History release acetaminophen 325 mg tablet 650 mg PO Q6H PRN Breakthrough 05/08/21 02/27/24 History (Tylenol) Pain, Mild albuterol sulfate 90 mcg/actuation 2 puff inhalation Q4H PRN PRN 10/26/22 02/27/24 Rx aerosol inhaler (Ventolin HFA) Wheezing ##1 levocetirizine 5 mg tablet 5 mg PO QHS 01/18/23 Unknown History atorvastatin 20 mg tablet 10 mg PO QHS cholesterol 03/24/23 02/27/24 History metoprolol tartrate 25 mg tablet 12.5 mg (1/2 x 25 mg) PO BID #30 07/13/23 Unknown Rx tabs apixaban 5 mg tablet (Eliquis) 2.5 mg PO BID blood thinner 10/28/23 02/23/24 History doxycycline hyclate 100 mg capsule 100 mg PO BID 7 days #14 caps 02/27/24 Unknown Rx Allergy/AdvReac Type Severity Reaction Status Date / Time albuterol Allergy Severe Chest Verified 02/28/24 06:45 tightness digoxin Allergy Intermediate Dizziness, Verified 02/28/24 06:41 headache, fuzzy thoughts ragweed pollen AdvReac Intermediate Nasal Verified 02/28/24 02:28 congestion Family History Father Heart disease Mother CVA (cerebral vascular accident) (more content not included)... Normal [facility] L501.4020on 02-28-2024 TROPONIN-I HS 48 pg/mL Normal 3.0-78.0 [facility] Comment on above: Order Comment: 'TROP ' Serial specimen #1, #2 or #3: 1 Result Comment: Javad kenny Note: New Test Units and Gender Specific Reference Ranges. For more information see Policy Stat Procedure [place] High Sensitivity Troponin (TNIH) and attachments. Performed By: #### L 501.9520, L501.4020 ####[facility] [id number] [place], [address] Magnesiumon 02-28-2024 Magnesium [Mass/Vol] 2.0 mg/dL Normal 1.6-2.6 [facility] Comment on above: Performed By: #### L 500.4050, L501.9520, L506.1000, L100.0100 #### [facility] [address] [place], [address] Partial Thromboplast Timeon 02-28-2024 aPTT Coag (Bld) [Time] 29.4 s Normal 24.1-36.2 [facility] Comment on above: Performed By: #### L 500.4050, L501.9520, L506.1000, L100.0100 #### [facility] [address] [place], [address] Prothrombin Time w/INRon INR Coag (PPP) [Relative time] 1.1 {INR} Normal [facility] Comment on above: Performed By: #### L 500.4050, L501.9520, L506.1000, L100.0100 #### [facility] [address] [place], [address] PT Coag (PPP) [Time] 13.7 s Normal 11.7-14.9 [facility] Comment on above: Performed By: #### L 500.4050, L501.9520, L506.1000, L100.0100 #### [facility] [address] [place], [address] RESPIRATORY PANEL MOLECULARo n 02-28-2024 RP PANEL Normal Reference Ran ge = Not Detected Resp path DNA+RNA Pnl Resp MADHAV+probe Nucleic acid amplification test method RESULTS CALLED TO NEELA MADRID 02/28/24 1255 Jessica Alford. REPORT READ BACK BY NEELA MADRID. Copy of report sent to Infection Control Printer [id number] 02/28/24 7087 EJ. ADENOVIRUS Not Detected INFLUENZA A Not Detected INFLUENZA A (SUBTYPE H1) Not Detected INFLUENZA A (SUBTYPE H3) Not Detected INFLUENZA B Not Detected HUMAN METAPHNEUMO Not Detected PARAINFLUENZA 1 Not Detected PARAINFLUENZA 2 Not Detected PARAINFLUENZA 3 Not Detected PARAINFLUENZA 4 Not Detected RHINOVIRUS A Positive for RHINOVIRUS by NAAT technology A RSV A Not Detected RSV B Not Detected RHINOVIRUS Normal [facility] Comment on above: Performed By: #### L 500.4050, L501.9520, L506.1000, L100.0100 #### [facility] [address] [place], [address] Thyroid Stim Hormone (TSH)on 02-28-2024 TSH 1.300 uIU/mL Normal 0.358-3.740 [facility] Comment on above: Order Comment: 'TROP ' Serial specimen #1, #2 or #3: 1 Performed By: #### L 501.9520, L501.4020 ####[facility] [id number] [place], [address] TSH 0.624 uIU/mL Normal 0.358-3.740 [facility] Comment on above: Performed By: #### L 500.4050, L501.9520, L506.1000, L100.0100 #### [facility] [address] [place], [address] Office Visit Reporton 2023 Office Visit Report [facility] [address] [place] [address] OFFICE VISIT Date of Service: 02/27/24 MR#: [id number] Acct: [id number] Patient: IRWIN CORDERO Rep #: [id number] : 1940 Provider: LLOYD rosario Age/Sex: 83/M Location: [facility] Status: Signed Intake Vital Signs 12/08/23 09:05 02/27/24 10:58 Height 5 ft 2 in 5 ft 2 in Weight: 150 lb 2 oz BMI 27.4 BP 126/66 H Blood Pressure Location Rt brachial Position Sitting Respiration 16 Pulse 85 Pulse Source Monitor Temp 97.3 F L Temp Source Temporal Pulse Oximetry (%) 90 Oxygen Delivery Method room air Intake Visit Reasons: COUGH/SINUS Is patient in pain?: No Allergies digoxin Adverse Reaction (Intermediate, Verified 02/27/24 10:56) Dizziness, headache, fuzzy thoughts ragweed pollen Adverse Reaction (Intermediate, Verified 02/27/24 10:56) Nasal congestion Medications ???Medication ???Instructions ???Recorded ???Confirmed ???Type nitroglycerin 0.4 mg sublingual 0.4 mg sublingual Q5-15M PRN Chest 04/06/17 02/27/24 History tablet (Nitrostat) Pain balsalazide 750 mg capsule 2,250 mg PO BID stomach 07/11/19 02/27/24 History pantoprazole 40 mg tablet,delayed 40 mg PO DAILY stomach 01/26/20 02/27/24 History release acetaminophen 325 mg tablet 650 mg PO Q6H PRN Breakthrough 05/08/21 02/27/24 History (Tylenol) Pain, Mild albuterol sulfate 90 mcg/actuation 2 puff inhalation Q4H PRN PRN 10/26/22 02/27/24 Rx aerosol inhaler (Ventolin HFA) Wheezing ##1 levocetirizine 5 mg tablet 5 mg PO QHS 01/18/23 02/27/24 History atorvastatin 20 mg tablet 10 mg PO QHS cholesterol 03/24/23 02/27/24 History metoprolol tartrate 25 mg tablet 12.5 mg (1/2 x 25 mg) PO BID #30 07/13/23 02/27/24 Rx tabs apixaban 5 mg tablet (Eliquis) 2.5 mg PO BID blood thinner 10/28/23 02/27/24 History doxycycline hyclate 100 mg capsule 100 mg PO BID 7 days #14 caps 02/27/24 02/27/24 Rx Have you fallen in the past year?: No PFSH Medical History Paroxysmal atrial fibrillation Anemia New onset a-fib Heartburn Bronchitis PUD (peptic ulcer disease) Deep vein thrombosis of left lower extremity (2012) Essential (primary) hypertension DDD (degenerative disc disease) Atherosclerosis of coronary artery of [place] heart without angina pectoris Non-ST elevation (NSTEMI) myocardial infarction (10/03/16) PND (post-nasal drip) Multiple allergies Cough Prostate enlargement Stomach ulcer GERD (gastroesophageal reflux disease) Glaucoma Skin cancer Unstable angina Hyperlipidemia Crohn disease Surgical History History of dental surgery (04/15/21) History of coronary artery stent placement (10/05/16) Previous back surgery H/O colonoscopy Family History Father Heart disease Mother CVA (cerebral vascular accident) Social History household members: spouse Smoking Status: Former smoker second hand exposure: No alcohol intake: never substance use type: does not use HPI HPI Details: IRWIN CORDERO, is a 83 M who presents to the office today for concerns regarding cough, shortness of breath, and sinus pressure over the last 2 days. This is improved today compared to yesterday. His concern today is the new and worsening shortness of breath. He states his heart rate at home has been controlled. He denies this shortness of breath as similar to previous CAD events. ROS Const Constitutional: Positive for body ache (resolved); No chills, fatigue, fever(s), headache(s) or change in appetite Eyes Eyes: No blurry vision, change in vision, double vision, irritation, discharge, vision loss, dry eyes, bulging eyes, floaters, visual disturbances, eye pain, Light sensitivity, spots in vision, tunnel vision or other ENT ENT: Positive for nasal discharge (white, yellow); No ear or mastoid pain, ear discharge, ear pressure, tinnitus, dizziness/vertigo, nosebleed/epistaxis, nasal congestion, nose pain, sinus pressure, sinus pain, post nasal drip, headache(s), facial pain, dental pain, difficulty swallowing, bad breath, hoarseness, lip swelling, mouth lesions, mouth pain, neck pain, sore throat, tongue swelling or throat swelling Resp Respiratory: Positive for cough and shortness of breath sob: SOB with activity and SOB at rest; No change in phlegm color, chest congestion, hemoptysis, pain on inspiration, pain with cough, stridor or wheezing Cardio Cardiology: No chest pain at rest, chest pain with exertion, shortness of breath, dyspnea on exertion or lightheadedness Gastro GI: Positive for abdominal pain and constipation (History of colitis- being treated); No change in bowel habits, diarrhea, d (more content not included)... Normal [facility] CBC-Complete Blood Cnt No Di ffon 12-24-2023 Erythrocyte distribution width (RBC) [Ratio] 15.0 % High 11.6-14.6 [facility] Comment on above: Performed By: #### L 500.4050, L501.9520, L506.1000, L100.0100 #### [facility] [address] [place], [address] Hematocrit (Bld) [Volume fraction] 38.8 % Low 40-54 [facility] Comment on above: Performed By: #### L 500.4050, L501.9520, L506.1000, L100.0100 #### [facility] [address] [place], [address] Hemoglobin (Bld) [Mass/Vol] 12.3 g/dL Low 13.0-16.5 [facility] Comment on above: Performed By: #### L 500.4050, L501.9520, L506.1000, L100.0100 #### [facility] [address] [place], [address] MCH (RBC) [Entitic mass] 30.5 pg Normal 27.0-32.0 [facility] Comment on above: Performed By: #### L 500.4050, L501.9520, L506.1000, L100.0100 #### [facility] [address] [place], [address] MCHC (RBC) [Mass/Vol] 31.7 g/dL Low 32-36 [facility] Comment on above: Performed By: #### L 500.4050, L501.9520, L506.1000, L100.0100 #### [facility] [address] [place], [address] MCV (RBC) [Entitic vol] 96.3 fL High 80-94 [facility] Comment on above: Performed By: #### L 500.4050, L501.9520, L506.1000, L100.0100 #### [facility] [address] [place], [address] Platelet mean volume (Bld) [Entitic vol] 9.4 fL Normal 6.2-12.0 [facility] Comment on above: Performed By: #### L 500.4050, L501.9520, L506.1000, L100.0100 #### [facility] [address] [place], [address] Platelets (Bld) [#/Vol] 242 10*3/uL Normal 150-450 [facility] Comment on above: Performed By: #### L 500.4050, L501.9520, L506.1000, L100.0100 #### [facility] [address] [place], [address] RBC (Bld) [#/Vol] 4.03 10*6/uL Low 4.6-6.2 [facility] Comment on above: Performed By: #### L 500.4050, L501.9520, L506.1000, L100.0100 #### [facility] [address] [place], [address] RDW SD 53.2 fl High 35.1-43.9 [facility] Comment on above: Performed By: #### L 500.4050, L501.9520, L506.1000, L100.0100 #### [facility] [address] [place], [address] WBC (Bld) [#/Vol] 4.6 10*3/uL Normal 4.4-11.0 [facility] Comment on above: Performed By: #### L 500.4050, L501.9520, L506.1000, L100.0100 #### [facility] [address] [place], [address] CRPon 12-24-2023 C-REACTIVE PROT 3.44 mg/L High 0.0-3.0 [facility] Comment on above: Result Comment: C-Re active Protein (CRP) provides useful information for the diagnosis, therapy and monitoring of inflammatory processes and associated diseases. For the evaluation of Relative Risk for Cardiovascular Disease, a High Sensitivity CRP (HSCRP) should be ordered. Performed By: #### L 500.4050, L501.9520, L506.1000, L100.0100 #### [facility] [address] [place], [address] Erythrocyte Sed Rateon 12-23 SED RATE 18 mm/hr Normal 0-20 [facility] Comment on above: Performed By: #### L 500.4050, L501.9520, L506.1000, L100.0100 #### [facility] [address] [place], [address] Ironon 12-24-2023 Iron [Mass/Vol] 35 ug/dL Low 65-175 [facility] Comment on above: Performed By: #### L 500.4050, L501.9520, L506.1000, L100.0100 #### [facility] [address] [place], [address] 12 Lead EKG performed by [facility] on 12-08-2023 12 Lead EKG performed by [facility] [address] [place] [address] 12 Lead EKG performed by [facility] 12/08/23726 MR#: [id number] Acct: [id number] Name: IRWIN CORDERO Rep #: [id number] : 1940 83 From: Cris Naidu Attending Dr: MIRA Rdz Status: DEP AMB Ordering Dr: Cris Pruitt Date: 11/20 11/12 Location: [facility] Sex: M C Admitted: BMS/12 Lead EKG performed by [facility] ECG Report Interpretation ----Sinus Rhythm WITHIN NORMAL LIMITSElectronically signed on 12/14/2023 at 14:38 by Tyson [employer] Software Version 8610 12/14/23 1441 Date Cris MEYERS CC: Dr. Marcelo Mccullough MD Date Dictated: 12/08/23726 Date Transcribed: 12/08/23726 Tool And Die Supervisor: NAHID Signed Normal [facility] Cardiology Visit Reporton Cardiology Visit Report [facility] [address] [place] [address] OFFICE VISIT Date of Service: 12/08/23 MR#: [id number] Acct: [id number] Name: IRWIN CORDERO Rep #: [id number] : 1940 Provider: MIRA Vitale Age/Sex: 83/M Location: [facility] Status: Signed [facility] History of Present Illness Details: Mr. Cordero is a pleasant 83-year-old man with a history of hypertension, hypercholesterolemia, coronary artery disease who presented to [facility] on 10/03/16 with acute coronary syndrome. Patient had a minor troponin release of 0.43 maximum, was taken to the [facility] on 10/05/16 which showed normal LV size and function, a questionable lesion in the proximal RCA, and nonobstructive coronary disease of the left circumflex, PDA and LAD. The patient underwent successful angioplasty and drug-eluting stenting of the proximal RCA. The patient was found to have questionable disease of his LAD and underwent a stress echocardiogram on 10/30/16 which was negative for inducible ischemia of the anterior wall. 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 He did undergo a stress echocardiogram in July 2018 which was apparently normal. He underwent repeat stress test on account of shortness of breath on 02/12/2020 that was negative for ischemia and showed a preserved ejection fraction. Pt was seen in the Er on 02/21/2022 for chest pain. EKG demonstrated new onset of Afib with RVR. He did concert to SR. He was admitted for observation. In the ER he was started on a cardizem drip but this was discontinued d/t hypotension. His metoprolol was restarted. He was already on Eliquis for hx of DVT. Echocardiogram demonstrated an EF of 55%. His left and right atrium are severely enlarged. Troponins were negative. Intake Vital Signs 06/04/23 08:55 10/31/23 08:54 12/08/23 09:02 12/08/23 09:05 Height 5 ft 2 in 5 ft 2 in 5 ft 2 in 5 ft 2 in Weight: 150 lb BMI 27.4 BP 117/74 Blood Pressure Location Lt brachial Position Sitting Respiration 18 Pulse 80 Pulse Source Monitor Pulse Oximetry (%) 96 Intake Visit Reasons: 6 M FU/NEEDS EKG Podiatry Assistant Required: No Is patient in pain?: No Allergies digoxin Adverse Reaction (Intermediate, Verified 12/08/23 09:04) Dizziness, headache, fuzzy thoughts ragweed pollen Adverse Reaction (Intermediate, Verified 12/08/23 09:04) Nasal congestion Medications ???Medication ???Instructions ???Recorded ???Confirmed ???Type nitroglycerin 0.4 mg sublingual 0.4 mg sublingual Q5-15M PRN Chest 04/06/17 12/08/23 History tablet (Nitrostat) Pain balsalazide 750 mg capsule 2,250 mg PO BID stomach 07/11/19 12/08/23 History pantoprazole 40 mg tablet,delayed 40 mg PO DAILY stomach 01/26/20 12/08/23 History release acetaminophen 325 mg tablet 650 mg PO Q6H PRN Breakthrough 05/08/21 12/08/23 History (Tylenol) Pain, Mild dextromethorphan polistirex 30 10 ml PO Q12H PRN Cough 05/08/21 12/08/23 History mg/5 mL oral susp ext.release 12hr (Robitussin ER) guaifenesin 600 mg tablet, 600 mg PO Q12H PRN Cough 05/08/21 12/08/23 History extended release 12 hr (Mucinex) albuterol sulfate 90 mcg/actuation 2 puff inhalation Q4H PRN PRN 10/26/22 12/08/23 Rx aerosol inhaler (Ventolin HFA) Wheezing ##1 levocetirizine 5 mg tablet 5 mg PO QHS 01/18/23 12/08/23 History atorvastatin 20 mg tablet 10 mg PO QHS cholesterol 03/24/23 12/08/23 History metoprolol tartrate 25 mg tablet 12.5 mg (1/2 x 25 mg) PO BID #30 07/13/23 12/08/23 Rx tabs apixaban 5 mg tablet (Eliquis) 2.5 mg PO BID blood thinner 10/28/23 12/08/23 History Have you fallen in the past year?: No PFSH Medical History (Updated 12/08/23 @ 09:16 by Cris MEYERS, PA) Paroxysmal atrial fibrillation Anemia New onset a-fib Heartburn Bronchitis PUD (peptic ulcer disease) Deep vein thrombosis of left lower extremity (2012) Essential (primary) hypertension DDD (degenerative disc disease) Atherosclerosis of coronary artery of [place] heart without angina pectoris Non-ST elevation (NSTEMI) myocardial infarction (10/03/16) PND (post-nasal drip) Multiple allergies Cough Prostate enlargement Stomach ulcer GERD (gastroesophageal reflux disease) Glaucoma Skin cancer Unstable angina Hyperlipidemia Crohn disease Surgical History History of dental surgery (04/15/21) History of coronary artery stent placement (10/05/16) Previous back surgery H/O colonoscopy Family History Father Heart disease Mother CVA (cerebral vascular accident) Social History household members: spouse S (more content not included)... Normal [facility] M100.678on 11-17-2023 M100.678 Copy of report sent to Infection Control Printer [id number] 11/17/23 1523 VSICK. SARS-CoV-2 (COVID 19) A Positive A INFLUENZA A Negative INFLUENZA B Negative RSV PCR Negative SARS-CoV-2 (COVID 19 PCR) Normal [facility] Comment on above: Performed By: #### L 500.4050, L501.9520, L506.1000, L100.0100 #### [facility] [address] [place], [address] Final Surgical Pathology Rep [facility] 11-15-2023 Final Surgical Pathology Report . Pathology Reports Accession: Collected Date/Time: Received Date/Time: Pathologist: [id number] 11/12/2023 09:05 EDT 11/12/2023 14:16 EDT MD JESSIE MCGHEE Final Surgical Pathology Report DIAGNOSIS: DISTAL SIGMOID COLON AND RECTUM, BIOPSY: - FRAGMENTS OF COLONIC MUCOSA WITH MODERATE ACTIVE CHRONIC COLITIS AND FOCAL SURFACE EROSION/ULCERATION - NEGATIVE FOR GRANULOMAS OR DYSPLASIA Comment: Sections demonstrate moderate active chronic colitis with acute and chronic inflammation of the lamina propria, cryptitis, a rare crypt abscess and focal surface erosion/ulceration. The histologic features are suggestive of a chronic inflammatory bowel disease. Recommend clinical pathologic correlation. CLINICAL INFORMATION: Procedure: FLEXIBLE SIGMOIDOSCOPY WITH BIOPSIES Preoperative diagnosis: RECTAL BLEED, HISTORY OF COLITIS Postoperative diagnosis: SAME SPECIMEN: A DISTAL SIGMOID RECTUM COLON, BX - R/O ACTIVE COLITIS/DYSPLASIA GROSS DESCRIPTION: All parts labelled with patient name and [id number] Received in formalin labeled distal sigmoid rectum biopsy are multiple wispy zavala-pink tissue fragments aggregating 1.3 x 0.2 x 0.1 cm. Smallest fragments may not survive processing. TS-1 Luisa Oliveira, Grossing Button Tacker/ Dr. Temo Pinto, Pathologist Performed by Luisa Oliveira MICROSCOPIC DESCRIPTION: The microscopic examination is performed, except in the case of Gross Only. Electronically Signed by Pathology Report verified by [facility] JESSIE MCGHEE MD Sign out Date: 11/15/2023 10:24 Performing Lab: [facility], [facility] [place] [address] Pathology Dept Disclaimer If ancillary studies were utilized, the following Laboratory Developed Test (LDT) disclaimer will apply: Under CLIA requirements, [facility] is qualified to perform high complexity testing. For all ancillary stains, positive and negative controls stain appropriately. Performance characteristics of immunohistochemical and chromogenic in-situ hybridization tests have been determined by [facility]. These tests are used for clinical purposes, They should not be regarded as investigational or for research. Normal [facility] ([place]) .Auto Diffon 11-12-2023 Basophil, Absolute 0.0 10 3/mcL Normal 0.0-0.2 [facility] ([place]) Comment on above: Performed By: #### A JOSIE, CBC, ADIFF #### [address] [address] Basophils/100 WBC (Bld) 0.6 % Normal 0.0-2.5 A [facility] ([place]) Comment on above: Performed By: #### A JOSIE, CBC, ADIFF #### [address] [address] Eosinophil, Absolute 0.1 10 3/mcL Normal 0.0-0.4 [facility] ([place]) Comment on above: Performed By: #### A JOSIE, CBC, ADIFF #### [address] [address] Eosinophils/100 WBC (Bld) 1.4 % Normal 0.0-7.0 [facility] ([place]) Comment on above: Performed By: #### A JOSIE, CBC, ADIFF #### [address] [address] Lymphocyte, Absolute 0.8 10 3/mcL Normal 0.8-3.9 [facility] ([place]) Comment on above: Performed By: #### A JOSIE, CBC, ADIFF #### [address] [address] Lymphocytes/100 WBC (Bld) 16.5 % Normal 10.0-50.0 [facility] ([place]) Comment on above: Performed By: #### A JOSIE, CBC, ADIFF #### [address] [address] Monocyte, Absolute 0.9 10 3/mcL Normal 0.2-1.0 [facility] ([place]) Comment on above: Performed By: #### A JOSIE, CBC, ADIFF #### [address] [address] Monocytes/100 WBC (Bld) 18.0 % High 1.7-13.0 [facility] ([place]) Comment on above: Performed By: #### A JOSIE, CBC, ADIFF #### [address] [address] Neutrophils/100 WBC (Bld) 63.5 % Normal 37.0-80.0 [facility] ([place]) Comment on above: Performed By: #### A JOSIE, CBC, ADIFF #### [address] [address] .NEUABSon 11-12-2023 Neutrophil, Absolute 3.1 10 3/mcL Normal 2.9-6.2 [facility] ([place]) Comment on above: Performed By: #### A JOSIE, CBC, ADIFF #### [address] [address] CBCon 11-12-2023 Erythrocyte distribution width (RBC) [Ratio] 15.1 % High 11.5-14.5 [facility] ([place]) Comment on above: Performed By: #### A JOSIE, CBC, ADIFF #### [address] [address] Hematocrit (Bld) [Volume fraction] 35.0 % Low 42.0-52.0 [facility] ([place]) Comment on above: Performed By: #### A JOSIE, CBC, ADIFF #### [address] [address] Hgb 11.8 G/dL Low 14.0-18.0 [facility] ([place]) Comment on above: Performed By: #### A JOSIE, CBC, ADIFF #### [address] [address] MCH (RBC) [Entitic mass] 31.7 pg High 27.0-31.2 [facility] ([place]) Comment on above: Performed By: #### A JOSIE, CBC, ADIFF #### [address] [address] MCHC 33.7 G/dL Normal 31.8-35.4 [facility] ([place]) Comment on above: Performed By: #### A JOSIE, CBC, ADIFF #### [address] [address] MCV (RBC) [Entitic vol] 94.0 fL Normal 80.0-94.0 A [facility] ([place]) Comment on above: Performed By: #### A JOSIE, CBC, ADIFF #### [address] [address] Platelet 215 10 3/mcL Normal 130-400 [facility] ([place]) Comment on above: Performed By: #### A JOSIE, CBC, ADIFF #### [address] [address] Platelet mean volume (Bld) [Entitic vol] 6.7 fL Low 7.4-10.4 [facility] ([place]) Comment on above: Performed By: #### A JOSIE, CBC, ADIFF #### [address] [address] RBC 3.72 10 6/mcL Low 4.04-6.13 [facility] ([place]) Comment on above: Performed By: #### A JOSIE, CBC, ADIFF #### [address] [address] WBC 4.9 10 3/mcL Normal 4.6-10.8 [facility] ([place]) Comment on above: Performed By: #### A JOSIE, CBC, ADIFF #### [address] [address] [place], [place] [address] FEon 11-12-2023 Iron [Mass/Vol] 48 ug/dL Low 65-175 [facility] ([place]) Comment on above: Performed By: #### F ERR, FE #### [address] [place], [place] [address] Leigh 11-12-2023 Ferritin [Mass/Vol] 42.0 ng/mL Normal 26.0-388.0 [facility] ([place]) Comment on above: Performed By: #### F ERR, FE #### [address] [place], [place] [address] LABORATORYOrdered By: SYSTEM SYSTEM on 11-12-2023 Basophil, Absolute 0.0 103/mcL Normal 0.0 - 0.2 10^3/mcL AO Workflow SS Basophils/100 WBC (Bld) 0.6 % Normal 0.0 - 2.5 % AO Workflow SS Eosinophil, Absolute 0.1 103/mcL Normal 0.0 - 0 .4 10^3/mcL AO Workflow SS Eosinophils/100 WBC (Bld) 1.4 % Normal 0.0 - 7.0 % AO Workflow SS Erythrocyte distribution width (RBC) [Ratio] 15.1 % High 11.5 - 14.5 % AO Workflow SS Ferritin [Mass/Vol] 42.0 ng/mL Normal 26.0 - 388.0 ng/mL AO ADM SS Hematocrit (Bld) [Volume fraction] 35.0 % Low 42.0 - 52.0 % AO Workflow SS Hemoglobin (Bld) [Mass/Vol] 11.8 G/dL Low 14.0 - 18.0 G/dL AO Workflow SS Iron [Mass/Vol] 48 ug/dL Low 65 - 175 mcg/dL AO ADM SS Lymphocyte, Absolute 0.8 103/mcL Normal 0.8 - 3 .9 10^3/mcL AO Workflow SS Lymphocytes/100 WBC (Bld) 16.5 % Normal 10.0 - 50.0 % AO Workflow SS MCH (RBC) [Entitic mass] 31.7 pg High 27. 0 - 31.2 pg AO Workflow SS MCHC 33.7 G/dL Normal 31.8 - 35.4 G/dL AO Workflow SS MCV (RBC) [Entitic vol] 94.0 fL Normal 80.0 - 94.0 fL AO Workflow SS Monocyte, Absolute 0.9 103/mcL Normal 0.2 - 1.0 10^3/mcL AO Workflow SS Monocytes/100 WBC (Bld) 18.0 % High 1.7 - 13.0 % AO Workflow SS Neutrophil, Absolute 3.1 103/mcL Normal 2.9 - 6 .2 10^3/mcL AO Workflow SS Neutrophils/100 WBC (Bld) 63.5 % Normal 37.0 - 80.0 % AO Workflow SS Platelet mean volume (Bld) [Entitic vol] 6.7 fL Low 7.4 - 10.4 fL AO Workflow SS Platelets (Bld) [#/Vol] 215 103/mcL Normal 130 - 400 10^3/mcL AO Workflow SS RBC (Bld) [#/Vol] 3.72 106/mcL Low 4.04 - 6.1 3 10^6/mcL AO Workflow SS WBC (Bld) [#/Vol] 4.9 103/mcL Normal 4.6 - 10.8 10^3/mcL AO Workflow SS 12 Lead EKGon 10-31-2023 12 Lead EKG [facility] [address] [place] [address] 12 Lead EKG 10/31/23 0859 MR#: [id number] Acct: [id number] Name: IRWIN CORDERO Rep #: [id number] : 1940 83 From: Tyson Miller MD Attending Dr: Status: DEP ER Ordering Dr: Eloy Lane DO Date: 10/31/23 Location: ED Sex: M C Admitted: Test Reason : CP Blood Pressure : / mmHG Vent. Rate : 070 BPM Atrial Rate : 070 BPM P-R Int : 150 ms QRS Dur : 088 ms QT Int : 408 ms P-R-T Axes : 084 007 069 degrees QTc Int : 440 ms Normal sinus rhythm Normal ECG Confirmed by TYSON MILLER MD ([id number]), script editor ARNOLD AHUMADA ([id number]) on 11/01/2023 9:43:56 AM Referred By: ES Confirmed By:TYSON MILLER MD 11/01/23 0944 Date Tyson Miller MD CC: Dr. Eloy Lane DO; Dr. Marcelo Mccullough MD Signed Normal [facility] CBC W/Diff, Automatedon 10-20 Absolute Lymph 1.16 X10 3/uL Normal 0.83-4.51 [facility] Comment on above: Performed By: #### L 500.4050, L501.9520, L506.1000, L100.0100 #### [facility] [address] [place], [address] Absolute Neut 2.3 X10 3/uL Normal 2.0-7.7 [facility] Comment on above: Performed By: #### L 500.4050, L501.9520, L506.1000, L100.0100 #### [facility] [address] [place], [address] Basophils/100 WBC (Bld) 0.6 % Normal 0-1 [facility] Comment on above: Performed By: #### L 500.4050, L501.9520, L506.1000, L100.0100 #### [facility] [address] [place], [address] Eosinophils/100 WBC (Bld) 6.7 % High 0-5 [facility] Comment on above: Performed By: #### L 500.4050, L501.9520, L506.1000, L100.0100 #### [facility] [address] [place], [address] Erythrocyte distribution width (RBC) [Ratio] 14.3 % Normal 11.6-14.6 [facility] Comment on above: Performed By: #### L 500.4050, L501.9520, L506.1000, L100.0100 #### [facility] [address] [place], [address] Hematocrit (Bld) [Volume fraction] 36.8 % Low 40-54 [facility] Comment on above: Performed By: #### L 500.4050, L501.9520, L506.1000, L100.0100 #### [facility] [address] [place], [address] Hemoglobin (Bld) [Mass/Vol] 12.0 g/dL Low 13.0-16.5 [facility] Comment on above: Performed By: #### L 500.4050, L501.9520, L506.1000, L100.0100 #### [facility] [address] [place], [address] IG% 0.400 Normal 0.0-0.9 [facility] Comment on above: Result Comment: IG% - Immature Granulocytes (promyelocytes, myelocytes and metamyelocytes) > 1% indicates that a LEFT SHIFT is Present. Performed By: #### L 500.4050, L501.9520, L506.1000, L100.0100 #### [facility] [address] [place], [address] Lymphocytes/100 WBC (Bld) 23.5 % Normal 19-41 [facility] Comment on above: Performed By: #### L 500.4050, L501.9520, L506.1000, L100.0100 #### [facility] [address] [place], [address] MCH (RBC) [Entitic mass] 30.5 pg Normal 27.0-32.0 [facility] Comment on above: Performed By: #### L 500.4050, L501.9520, L506.1000, L100.0100 #### [facility] [address] [place], [address] MCHC (RBC) [Mass/Vol] 32.6 g/dL Normal 32-36 [facility] Comment on above: Performed By: #### L 500.4050, L501.9520, L506.1000, L100.0100 #### [facility] [address] [place], [address] MCV (RBC) [Entitic vol] 93.4 fL Normal 80-94 [facility] Comment on above: Performed By: #### L 500.4050, L501.9520, L506.1000, L100.0100 #### [facility] [address] [place], [address] Monocytes/100 WBC (Bld) 21.7 % High 0-10 [facility] Comment on above: Performed By: #### L 500.4050, L501.9520, L506.1000, L100.0100 #### [facility] [address] [place], [address] Neutrophils/100 WBC (Bld) 47.1 % Normal 47-70 [facility] Comment on above: Performed By: #### L 500.4050, L501.9520, L506.1000, L100.0100 #### [facility] [address] [place], [address] Nucleated RBC (Bld) [#/Vol] 0 10*3/uL Normal 0-5 [facility] Comment on above: Performed By: #### L 500.4050, L501.9520, L506.1000, L100.0100 #### [facility] [address] [place], [address] Platelet mean volume (Bld) [Entitic vol] 8.9 fL Normal 6.2-12.0 [facility] Comment on above: Performed By: #### L 500.4050, L501.9520, L506.1000, L100.0100 #### [facility] [address] [place], [address] Platelets (Bld) [#/Vol] 241 10*3/uL Normal 150-450 [facility] Comment on above: Performed By: #### L 500.4050, L501.9520, L506.1000, L100.0100 #### [facility] [address] [place], [address] RBC (Bld) [#/Vol] 3.94 10*6/uL Low 4.6-6.2 [facility] Comment on above: Performed By: #### L 500.4050, L501.9520, L506.1000, L100.0100 #### [facility] [address] [place], [address] RDW SD 49.9 fl High 35.1-43.9 [facility] Comment on above: Performed By: #### L 500.4050, L501.9520, L506.1000, L100.0100 #### [facility] [address] [place], [address] WBC (Bld) [#/Vol] 4.9 10*3/uL Normal 4.4-11.0 [facility] Comment on above: Performed By: #### L 500.4050, L501.9520, L506.1000, L100.0100 #### [facility] [address] [place], [address] Chest PA and Lateralon 10-30 Chest PA and Lateral [facility] Imaging Services [address] [place] [address] Chest PA and Lateral MR#: [id number] Acct: [id number] Name: IRWIN CORDERO Rep #: [id number] : 1940 M 83 From: Lito Lambert MD PCP: Dr. Marcelo Mccullough MD Status: [facility] ER Study: Chest PA and Lateral Date of Exam: 10/31/23 Exam# [id number] Ordering Dr: Eloy Lane DO [id number] STUDY: X-RAY CHEST REASON FOR EXAM: Male, 83 years old. Atypical chest pain TECHNIQUE: PA and lateral views of the chest. COMPARISON: None. FINDINGS: Lungs are hyperexpanded with chronic interstitial changes, no superimposed acute pulmonary process. There is no demonstrated pleural abnormality. Normal size heart. Normal mediastinum and jenny. Normal visualized pulmonary arteries. There is atherosclerotic calcification of the aortic arch with tortuosity. There are diffuse degenerative changes of the visualized thoracic spine. Normal visualized ribs, clavicles, and shoulders. There is no demonstrated abnormality of the visualized soft tissue structures of the upper abdomen. RAD/Chest PA and Lateral IMPRESSION: Hyperexpanded lungs with chronic interstitial changes, no superimposed acute pulmonary process Electronically Signed: Blake Lambert MD at 9:38 EDT , CC: Dr. Eloy Lane, DO; Dr. Marcelo Mccullough MD [employer] Supervisor: Signed Normal [facility] Comprehensive Metabolic Prof ilon 10-31-2023 Albumin [Mass/Vol] 3.1 g/dL Low 3.2-5.0 [facility] Comment on above: Order Comment: 1Y Performed By: #### L 500.4050, L501.9520, L506.1000, L100.0100 #### [facility] [address] [place], [address] Albumin/Globulin [Mass ratio] 0.8 {ratio} Low 0.9-2.4 [facility] Comment on above: Order Comment: 1Y Performed By: #### L 500.4050, L501.9520, L506.1000, L100.0100 #### [facility] [address] [place], [address] ALK P 54 U/L Normal 45-117 [facility] Comment on above: Order Comment: 1Y Performed By: #### L 500.4050, L501.9520, L506.1000, L100.0100 #### [facility] [address] [place], [address] ALT [Catalytic activity/Vol] 9 U/L Low 16-61 [facility] Comment on above: Order Comment: 1Y Performed By: #### L 500.4050, L501.9520, L506.1000, L100.0100 #### [facility] [address] [place], [address] AST [Catalytic activity/Vol] 13 U/L Low 15-37 [facility] Comment on above: Order Comment: 1Y Performed By: #### L 500.4050, L501.9520, L506.1000, L100.0100 #### [facility] [address] [place], [address] Bilirubin [Mass/Vol] 1.10 mg/dL High 0.20-1.00 [facility] Comment on above: Order Comment: 1Y Result Comment: For patients on eltrombopag therapy, use of Dimension [place] TBIL is not recommended. Performed By: #### L 500.4050, L501.9520, L506.1000, L100.0100 #### [facility] [address] [place], [address] BUN/CRE 14.2 RATIO Normal 10-20 [facility] Comment on above: Order Comment: 1Y Performed By: #### L 500.4050, L501.9520, L506.1000, L100.0100 #### [facility] [address] [place], [address] CA,Total 8.3 mg/dL Low 8.5-10.1 [facility] Comment on above: Order Comment: 1Y Performed By: #### L 500.4050, L501.9520, L506.1000, L100.0100 #### [facility] [address] [place], [address] Chloride [Moles/Vol] 110 mmol/L High 98-107 [facility] Comment on above: Order Comment: 1Y Performed By: #### L 500.4050, L501.9520, L506.1000, L100.0100 #### [facility] [address] [place], [address] CO2 [Moles/Vol] 26.0 mmol/L Normal 21.0-32.0 [facility] Comment on above: Order Comment: 1Y Performed By: #### L 500.4050, L501.9520, L506.1000, L100.0100 #### [facility] [address] [place], [address] Creatinine [Mass/Vol] 0.99 mg/dL Normal 0.70-1.30 [facility] Comment on above: Order Comment: 1Y Result Comment: The validity of the calculated GFR GFRAA in patients over 70 years has not been determined. Clinical correlation is essential. Performed By: #### L 500.4050, L501.9520, L506.1000, L100.0100 #### [facility] [address] [place], [address] ECRCL 45.52 ml/min Normal [facility] Comment on above: Order Comment: 1Y Performed By: #### L 500.4050, L501.9520, L506.1000, L100.0100 #### [facility] [address] [place], [address] EST GFR - AA 93 mL/min Normal >60 [facility] Comment on above: Order Comment: 1Y Result Comment: Afri can Stateless GFR Calc Performed By: #### L 500.4050, L501.9520, L506.1000, L100.0100 #### [facility] [address] [place], [address] GAP 5 Normal 5-15 [facility] Comment on above: Order Comment: 1Y Performed By: #### L 500.4050, L501.9520, L506.1000, L100.0100 #### [facility] [address] [place], [address] GFR/1.73 sq M.predicted among non-blacks MDRD (S/P/Bld) [Vol rate/Area] 77 mL/min/{1.73_m2} Normal >60 [facility] Comment on above: Order Comment: 1Y Result Comment: Non- GFR Calc Performed By: #### L 500.4050, L501.9520, L506.1000, L100.0100 #### [facility] [address] [place], [address] Globulin (S) [Mass/Vol] 3.7 g/dL Normal 2.2-4.2 [facility] Comment on above: Order Comment: 1Y Performed By: #### L 500.4050, L501.9520, L506.1000, L100.0100 #### [facility] [address] [place], [address] Glucose [Mass/Vol] 150 mg/dL High 74-106 [facility] Comment on above: Order Comment: 1Y Result Comment: Fast ing Glucose result greater than or equal to 126 mg/dL suggests DIABETES MELLITUS per A.D.A. criteria. Performed By: #### L 500.4050, L501.9520, L506.1000, L100.0100 #### [facility] [address] [place], [address] Potassium [Moles/Vol] 3.9 mmol/L Normal 3.5-5.1 [facility] Comment on above: Order Comment: 1Y Performed By: #### L 500.4050, L501.9520, L506.1000, L100.0100 #### [facility] [address] [place], [address] Sodium [Moles/Vol] 141 mmol/L Normal 136-145 [facility] Comment on above: Order Comment: 1Y Performed By: #### L 500.4050, L501.9520, L506.1000, L100.0100 #### [facility] [address] [place], [address] T PROT 6.8 g/dL Normal 6.4-8.2 [facility] Comment on above: Order Comment: 1Y Performed By: #### L 500.4050, L501.9520, L506.1000, L100.0100 #### [facility] [address] [place], [address] Urea nitrogen [Mass/Vol] 14 mg/dL Normal 7-18 [facility] Comment on above: Order Comment: 1Y Performed By: #### L 500.4050, L501.9520, L506.1000, L100.0100 #### [facility] [address] [place], [address] Emergency Department Summary on 10-31-2023 Emergency Department Summary [facility] Medical Records Department [address] [place] [address] Emergency Department Summary 10/31/23 MR#: [id number] Acct: [id number] Name: IRWIN CORDERO Rep #: [id number] : 1940 83 From: Eloy Lane DO PCP: Dr. Marcelo Mccullough MD Status:DEP ER Location: ED HPI History of Present Illness Chief Complaint: Chest Pain Informant: patient Onset/Context/Timing Onset: Days (2-3) Activity at onset: gradual and exertion Timing: Intermittent Quality: Positive for Dull and Pressure Location: Left Chest Worsened By: Exertion Relieved By: Nothing Associated Symptoms: Positive for Dyspnea, Cough and Acid Reflux; Negative for Nausea, Vomiting, Diaphoresis, Fever, Lightheadedness or Palpitations Narrative Narrative: Patient presents with chest pain that has been intermittent over the past 2 to 3 days. Patient describes it as a dull pressure. Patient states he has pain in his back and left upper chest. Pat ient states it is worse with exertion. Patient states nothing makes it better. Patient admits to some shortness of breath and cough. Patient also admits to some lightheadedness with it. Patient also states he has been having some rectal bleeding recently and constipation. Patient admits to some epigastric and right upper quadrant pain that is worse after eating. Patient denies any fevers or chills. Patient denies any nausea or vomiting. CVD Risk Factors: Positive for Hypertension, Hypercholesterolemia and Family History 1' Negative for Diabetes or Smoking PE Risk Factors: Positive for Prior DVT or PE; Negative for Recent Travel/Surgery, Recent Immobilization or Cancer [facility] Medical History Anemia New onset a-fib Heartburn Bronchitis PUD (peptic ulcer disease) Deep vein thrombosis of left lower extremity (2012) Essential (primary) hypertension DDD (degenerative disc disease) Atherosclerosis of coronary artery of [place] heart without angina pectoris Non-ST elevation (NSTEMI) myocardial infarction (10/03/16) PND (post-nasal drip) Multiple allergies Cough Prostate enlargement Stomach ulcer GERD (gastroesophageal reflux disease) Glaucoma Skin cancer Unstable angina Hyperlipidemia Crohn disease Home Medications ???Medication ???Instructions ???Recorded ???Last Taken ???Type nitroglycerin 0.4 mg sublingual 0.4 mg sublingual Q5-15M PRN Chest 04/06/17 Unknown History tablet (Nitrostat) Pain balsalazide 750 mg capsule 2,250 mg PO BID stomach 07/11/19 02/20/22 22:00 History pantoprazole 40 mg tablet,delayed 40 mg PO DAILY stomach 01/26/20 02/20/22 09:00 History release acetaminophen 325 mg tablet 650 mg PO Q6H PRN Breakthrough 05/08/21 Unknown History (Tylenol) Pain, Mild dextromethorphan polistirex 30 10 ml PO Q12H PRN Cough 05/08/21 Unknown History mg/5 mL oral susp ext.release 12hr (Robitussin ER) guaifenesin 600 mg tablet, 600 mg PO Q12H PRN Cough 05/08/21 Unknown History extended release 12 hr (Mucinex) albuterol sulfate 90 mcg/actuation 2 puff inhalation Q4H PRN PRN 10/26/22 Unknown Rx aerosol inhaler (Ventolin HFA) Wheezing ##1 levocetirizine 5 mg tablet 5 mg PO QHS 01/18/23 Unknown History atorvastatin 20 mg tablet 10 mg PO QHS cholesterol 03/24/23 Unknown History digoxin 125 mcg (0.125 mg) tablet 125 mcg PO DAILY 06/04/23 Unknown History metoprolol tartrate 25 mg tablet 12.5 mg (1/2 x 25 mg) PO BID #30 07/13/23 Unknown Rx tabs apixaban 5 mg tablet (Eliquis) 2.5 mg PO BID blood thinner 10/28/23 Unknown History Allergy/AdvReac Type Severity Reaction Status Date / Time digoxin AdvReac Intermediate Dizziness, Verified 10/31/23 09:14 headache, fuzzy thoughts ragweed pollen AdvReac Intermediate Nasal Verified 10/31/23 09:14 congestion Family History Father Heart disease Mother CVA (cerebral vascular accident) Surgical History History of dental surgery (04/15/21) History of coronary artery stent placement (10/05/16) Previous back surgery H/O colonoscopy Social History household members: spouse Smoking Status: Former smoker second hand exposure: No alcohol intake: never substance use type: does not use ROS ROS ED Constitutional Constitutional ED: Denies chills or fever(s) Eyes Eyes: Denies blurry vision or change in vision ENT ENT ED: Denies rhinorrhea or sore throat Cardiovascular Cardiovascular: Reports chest pain; Denies palpitations Respiratory/Chest Respiratory/Chest: Reports cough and dyspnea Gastrointestinal Gastrointestinal: Denies nausea or vomiting Genitourinary Genitourinary ED: Denies dysuria or hematuria (more content not included)... Normal [facility] L501.4020on 10-31-2023 TROPONIN-I HS 4 pg/mL Normal 3.0-78.0 [facility] Comment on above: Result Comment: Javad kenny Note: New Test Units and Gender Specific Reference Ranges. For more information see Policy Stat Procedure [place] High Sensitivity Troponin (TNIH) and attachments. Performed By: #### L 501.4020 ####[facility] [address] [place], [address] L501.5425on 10-31-2023 TROPONIN-I HS 4 pg/mL Normal 3.0-78.0 [facility] Comment on above: Order Comment: 1Y Result Comment: Plebirdie kenny Note: New Test Units and Gender Specific Reference Ranges. For more information see Policy Stat Procedure [place] High Sensitivity Troponin (TNIH) and attachments. Performed By: #### L 500.4050, L501.9520, L506.1000, L100.0100 #### [facility] [address] [place], [address] Lipaseon 10-31-2023 Lipase [Catalytic activity/Vol] 36 U/L Normal 13-75 [facility] Comment on above: Order Comment: 1Y Result Comment: Javad kenny note: LIPASE revised reference range effective 22. New Lipase methodology. Expected to produce lower values than the previous assay method. NEW Reference Range: 13 - 75 U/L Performed By: #### L 500.4050, L501.9520, L506.1000, L100.0100 #### [facility] [address] [place], [address] Partial Thromboplast Timeon 10-31-2023 aPTT Coag (Bld) [Time] 30.2 s Normal 24.1-36.2 [facility] Comment on above: Performed By: #### L 500.4050, L501.9520, L506.1000, L100.0100 #### [facility] [address] [place], [address] Prothrombin Time w/INRon INR Coag (PPP) [Relative time] 1.2 {INR} Normal [facility] Comment on above: Performed By: #### L 500.4050, L501.9520, L506.1000, L100.0100 #### [facility] [address] [place], [address] PT Coag (PPP) [Time] 14.7 s Normal 11.7-14.9 [facility] Comment on above: Performed By: #### L 500.4050, L501.9520, L506.1000, L100.0100 #### [facility] [address] [place], [address] Laboratory - Microbiology an d Antimicrobial susceptibilityOrdered By: Marcelo Mccullough on 05-24-2023 SARS-CoV-2 (COVID-19) RNA MADHAV+probe Ql (Unsp spec) [facility] Absolute lymphocyte countOrd ered By: Ady Rothman on 03-16-2023 Lymphocytes Auto (Unsp spec) [#/Vol] 0.94 10*3/uL 0.83-4.51 [facility] Basophil percentageOrdered B y: Ady Rothman on 03-16-2023 Basophils/100 WBC (Bld) 0.9 % 0-1 [facility] Chloride [Moles/Vol] 107 mmol/L 98-107 [facility] Eosinophils/100 WBC (Bld) 5.4 % 0-5 [facility] Glucose [Mass/Vol] 102 mg/dL 74-106 [facility] Comment on above: Fasting Glucose resu lt from 100 to 125 mg/dL suggests IMPAIRED HOMEOSTASIS per A.D.A. criteria. Neutrophils (Bld) [#/Vol] 2.5 10*3/uL 2.0-7.7 [facility] Neutrophils/100 WBC (Bld) 54.8 % 47-70 [facility] Potassium [Moles/Vol] 3.9 mmol/L 3.5-5.1 [facility] Comment on above: Slight Hemolysis, Re sult may be falsely increased. Sodium [Moles/Vol] 140 mmol/L 136-145 [facility] WBC (Bld) [#/Vol] 4.5 10*3/uL 4.4-11.0 [facility] Blood erythrocytes count (nu mber/volume)Ordered By: Ady Rothman on 03-16-2023 RBC (Bld) [#/Vol] 4.19 10*6/uL 4.6-6.2 [facility] Blood hemoglobin measurement (mass/volume)Ordered By: Ady Rothman on 03-16-2023 Hemoglobin (Bld) [Mass/Vol] 12.0 g/dL 13.0-16.5 [facility] Blood lymphocytes/100 leukoc ytesOrdered By: Ady Rothman on 03-16-2023 Lymphocytes/100 WBC (Bld) 21.0 % 19-41 [facility] Blood monocytes/100 leukocyt esOrdered By: Ady Rothman on 03-16-2023 Monocytes/100 WBC (Bld) 17.2 % 0-10 [facility] Blood platelet mean volumeOr dered By: Ady Rothman on 03-16-2023 Platelet mean volume (Bld) [Entitic vol] 9.2 fL 6.2-12.0 [facility] Determination of erythrocyte mean corpuscular volume (MCV)Ordered By: Ady Rothman on 03-16-2023 MCV (RBC) [Entitic vol] 90.9 fL 80-94 [facility] Hematocrit Auto (Bld) [Volum e fraction]Ordered By: Ady Rothman on 03-16-2023 Hematocrit (Bld) [Volume fraction] 38.1 % 40-54 [facility] Laboratory - Chemistry and C hemistry - challengeOrdered By: Ady Rothman on 03-16-2023 CO2 [Moles/Vol] 29.0 mmol/L 21.0-32.0 [facility] Natriuretic peptide B (Bld) [Mass/Vol] 80.4 pg/mL 0-100 [facility] Urea nitrogen/Creatinine [Mass ratio] 14.3 mg/mg 10-20 [facility] Laboratory - Hematology and Cell countsOrdered By: Ady Rothman on 03-16-2023 Erythrocyte distribution width (RBC) [Entitic vol] 54.5 fL 35.1-43.9 [facility] Erythrocyte distribution width (RBC) [Ratio] 16.1 % 11.6-14.6 [facility] Immature granulocytes/100 WBC (Bld) 0.700 % 0.0-0.9 [facility] Comment on above: IG% - Immature Granu locytes (promyelocytes, myelocytes and metamyelocytes) > 1% indicates that a LEFT SHIFT is Present. MCH (RBC) [Entitic mass] 28.6 pg 27.0-32.0 [facility] Nucleated RBC/100 WBC (Bld) [Ratio] 0 % 0-5 [facility] MCHC Auto (RBC) [Mass/Vol]Or dered By: Ady Rothman on 03-16-2023 MCHC (RBC) [Mass/Vol] 31.5 g/dL 32-36 [facility] [facility] No Panel InformationOrdered By: Ady Rothman on 03-16-2023 Troponin I High Sensitivity 8 pg/mL 3.0-78.0 [facility] Comment on above: Please Note: New Saloni t Units and Gender Specific Reference Ranges. For more information see Policy Stat Procedure [place] High Sensitivity Troponin (TNIH) and attachments. Estimated Creatinine Clearance Calc 46.67 ml/min [facility] Estimated GFR (MDRD) Amer 102 mL/min >60 [facility] Comment on above: GFR Calc Estimated GFR (MDRD) Non-Af Amer 85 mL/min >60 [facility] Comment on above: Non- GFR Calc Platelets bldOrdered By: Kemal Rothman on 03-16-2023 Platelets (Bld) [#/Vol] 272 10*3/uL 150-450 [facility] Serum or plasma calcium josh urement (mass/volume)Ordered By: Ady Rothman on 03-16-2023 Calcium [Mass/Vol] 8.7 mg/dL 8.5-10.1 [facility] Serum or plasma creatinine m easurement (mass/volume)Ordered By: Ady Rothman on 03-16-2023 Creatinine [Mass/Vol] 0.91 mg/dL 0.70-1.30 [facility] Comment on above: The validity of the calculated GFR & GFRAA in patients over 70 years has not been determined. Clinical correlation is essential. Serum or plasma urea nitroge n measurement (mass/volume)Ordered By: Ady Rothman on 03-16-2023 Urea nitrogen [Mass/Vol] 13 mg/dL 7-18 [facility] Thin prep Papanicolaou smear with manual screeningOrdered By: Ady Rothman on 03-16-2023 Thin prep Papanicolaou smear with manual screening 4 5-15 [facility] Absolute lymphocyte countOrd ered By: Marcelo Mccullough on 03-10-2023 Lymphocytes Auto (Unsp spec) [#/Vol] 1.24 10*3/uL 0.83-4.51 [facility] Basophil percentageOrdered B y: Marcelo Mccullough on 03-10-2023 Basophils/100 WBC (Bld) 0.7 % 0-1 [facility] Bilirubin [Mass/Vol] 1.00 mg/dL 0.20-1.00 [facility] Comment on above: For patients on eltr ombopag therapy, use of Dimension [place] TBIL is not recommended. Chloride [Moles/Vol] 109 mmol/L 98-107 [facility] Eosinophils/100 WBC (Bld) 6.9 % 0-5 [facility] Glucose [Mass/Vol] 125 mg/dL 74-106 [facility] Comment on above: Fasting Glucose resu lt from 100 to 125 mg/dL suggests IMPAIRED HOMEOSTASIS per A.D.A. criteria. Neutrophils (Bld) [#/Vol] 2.0 10*3/uL 2.0-7.7 [facility] Neutrophils/100 WBC (Bld) 45.2 % 47-70 [facility] Potassium [Moles/Vol] 3.8 mmol/L 3.5-5.1 [facility] Protein [Mass/Vol] 7.0 g/dL 6.4-8.2 [facility] Sodium [Moles/Vol] 142 mmol/L 136-145 [facility] WBC (Bld) [#/Vol] 4.5 10*3/uL 4.4-11.0 [facility] Blood erythrocytes count (nu mber/volume)Ordered By: Marcelo Mccullough on 03-10-2023 RBC (Bld) [#/Vol] 4.16 10*6/uL 4.6-6.2 [facility] Blood hemoglobin measurement (mass/volume)Ordered By: Marcelo Mccullough on 03-10-2023 Hemoglobin (Bld) [Mass/Vol] 11.9 g/dL 13.0-16.5 [facility] Blood lymphocytes/100 leukoc ytesOrdered By: [facility] on 03-10-2023 Lymphocytes/100 WBC (Bld) 27.6 % 19-41 [facility] Blood monocytes/100 leukocyt esOrdered By: [facility] on 03-10-2023 Monocytes/100 WBC (Bld) 19.4 % 0-10 [facility] Blood platelet mean volumeOr dered By: [facility] on 03-10-2023 Platelet mean volume (Bld) [Entitic vol] 9.2 fL 6.2-12.0 [facility] Determination of erythrocyte mean corpuscular volume (MCV)Ordered By: [facility] on 03-10-2023 MCV (RBC) [Entitic vol] 94.0 fL 80-94 [facility] Hematocrit Auto (Bld) [Volum e fraction]Ordered By: [facility] on 03-10-2023 Hematocrit (Bld) [Volume fraction] 39.1 % 40-54 [facility] Laboratory - Chemistry and C hemistry - challengeOrdered By: [facility] on 03-10-2023 ALP [Catalytic activity/Vol] 57 U/L 45-117 [facility] ALT [Catalytic activity/Vol] 14 U/L 16-61 [facility] CO2 [Moles/Vol] 28.0 mmol/L 21.0-32.0 [facility] Globulin (S) [Mass/Vol] 3.7 g/dL 2.2-4.2 [facility] Urea nitrogen/Creatinine [Mass ratio] 15.9 mg/mg 10-20 [facility] Laboratory - Hematology and Cell countsOrdered By: [facility] on 03-10-2023 Erythrocyte distribution width (RBC) [Entitic vol] 57.6 fL 35.1-43.9 [facility] Erythrocyte distribution width (RBC) [Ratio] 16.7 % 11.6-14.6 [facility] Immature granulocytes/100 WBC (Bld) 0.200 % 0.0-0.9 [facility] Comment on above: IG% - Immature Granu locytes (promyelocytes, myelocytes and metamyelocytes) > 1% indicates that a LEFT SHIFT is Present. MCH (RBC) [Entitic mass] 28.6 pg 27.0-32.0 [facility] Nucleated RBC/100 WBC (Bld) [Ratio] 0 % 0-5 [facility] MCHC Auto (RBC) [Mass/Vol]Or dered By: Marcelo Mccullough on 03-10-2023 MCHC (RBC) [Mass/Vol] 30.4 g/dL 32-36 [facility] No Panel InformationOrdered By: Marcelo Mccullough on 03-10-2023 Estimated GFR (MDRD) Amer 98 mL/min >60 [facility] Comment on above: GFR Calc Estimated GFR (MDRD) Non-Af Amer 81 mL/min >60 [facility] Comment on above: Non- GFR Calc Thyroid Stimulating Hormone (TSH) 2.27 uIU/mL 0.358-3.74 [facility] Vitamin D 25-Hydroxy 28.2 ng/mL [facility] Comment on above: Vitamin D 25(OH) Sta tus Range Deficiency <20 ng/mL (50nmol/L) Insufficiency 20 - 30 ng/mL (50 - 75 nmol/L) Sufficiency 30 - 100 ng/mL (75 - 250 nmol/L) Toxicity >100 ng/mL (>250 nmol/L) Platelets bldOrdered By: Marcelo Mccullough on 03-10-2023 Platelets (Bld) [#/Vol] 307 10*3/uL 150-450 [facility] Serum or plasma albumin josh urement (mass/volume)Ordered By: Marcelo Mccullough on 03-10-2023 Albumin [Mass/Vol] 3.3 g/dL 3.2-5.0 [facility] Serum or plasma albumin/glob ulin mass ratioOrdered By: Marcelo Mccullough on 03-10-2023 Albumin/Globulin [Mass ratio] 0.9 {ratio} 0.9-2.4 [facility] Serum or plasma calcium josh urement (mass/volume)Ordered By: Marcelo Mccullough on 03-10-2023 Calcium [Mass/Vol] 8.4 mg/dL 8.5-10.1 [facility] Serum or plasma creatinine m easurement (mass/volume)Ordered By: Marcelo Mccullough on 03-10-2023 Creatinine [Mass/Vol] 0.94 mg/dL 0.70-1.30 [facility] Comment on above: The validity of the calculated GFR & GFRAA in patients over 70 years has not been determined. Clinical correlation is essential. Serum or plasma urea nitroge n measurement (mass/volume)Ordered By: Marcelo Mccullough on 03-10-2023 Urea nitrogen [Mass/Vol] 15 mg/dL 7-18 [facility] Thin prep Papanicolaou smear with manual screeningOrdered By: Marcelo Mccullough on 03-10-2023 Thin prep Papanicolaou smear with manual screening 18 U/L 15-37 [facility] Thin prep Papanicolaou smear with manual screening 5 5-15 [facility] Basophil percentageOrdered B y: Amado Anderson on 02-03-2023 Basophil percentage 5-10 SEEN /hpf 0-5 [facility] Bilirubin [Mass/Vol] 1.30 mg/dL 0.20-1.00 [facility] Comment on above: For patients on eltr ombopag therapy, use of Dimension [place] TBIL is not recommended. Chloride [Moles/Vol] 106 mmol/L 98-107 [facility] Glucose [Mass/Vol] 102 mg/dL 74-106 [facility] Comment on above: Fasting Glucose resu lt from 100 to 125 mg/dL suggests IMPAIRED HOMEOSTASIS per A.D.A. criteria. Potassium [Moles/Vol] 3.8 mmol/L 3.5-5.1 [facility] Protein [Mass/Vol] 7.0 g/dL 6.4-8.2 [facility] Sodium [Moles/Vol] 139 mmol/L 136-145 [facility] WBC (Bld) [#/Vol] 4.9 10*3/uL 4.4-11.0 [facility] Bilirubin Test strip Ql (U)O rdered By: Amado Anderson on 02-03-2023 Bilirubin Ql (U) Negative Negative [facility] Blood erythrocytes count (nu mber/volume)Ordered By: Amado Anderson on 02-03-2023 RBC (Bld) [#/Vol] 4.01 10*6/uL 4.6-6.2 [facility] Blood hemoglobin measurement (mass/volume)Ordered By: Amado Anderson on 02-03-2023 Hemoglobin (Bld) [Mass/Vol] 11.5 g/dL 13.0-16.5 [facility] Blood platelet mean volumeOr dered By: Amado Anderson on 02-03-2023 Platelet mean volume (Bld) [Entitic vol] 8.7 fL 6.2-12.0 [facility] Culture, urineOrdered By: Ced Anderson on 02-03-2023 Bacteria identified Cx Nom (U) Culture exhibits no growth. [facility] Determination of erythrocyte mean corpuscular volume (MCV)Ordered By: Amado Anderson on 02-03-2023 MCV (RBC) [Entitic vol] 92.3 fL 80-94 [facility] Hematocrit Auto (Bld) [Volum e fraction]Ordered By: Amado Anderson on 02-03-2023 Hematocrit (Bld) [Volume fraction] 37.0 % 40-54 [facility] Ketones Test strip Ql (U)Ord ered By: Amado Anderson on 02-03-2023 Ketones Ql (U) Negative Negative [facility] Laboratory - Chemistry and C hemistry - challengeOrdered By: Amado Anderson on 02-03-2023 ALP [Catalytic activity/Vol] 60 U/L 45-117 [facility] ALT [Catalytic activity/Vol] 13 U/L 16-61 [facility] CO2 [Moles/Vol] 29.0 mmol/L 21.0-32.0 [facility] Globulin (S) [Mass/Vol] 3.7 g/dL 2.2-4.2 [facility] Urea nitrogen/Creatinine [Mass ratio] 12.5 mg/mg 10-20 [facility] Laboratory - Hematology and Cell countsOrdered By: Amado Anderson on 02-03-2023 Erythrocyte distribution width (RBC) [Entitic vol] 58.2 fL 35.1-43.9 [facility] Erythrocyte distribution width (RBC) [Ratio] 16.9 % 11.6-14.6 [facility] MCH (RBC) [Entitic mass] 28.7 pg 27.0-32.0 [facility] MCHC Auto (RBC) [Mass/Vol]Or dered By: Amado Anderson on 02-03-2023 MCHC (RBC) [Mass/Vol] 31.1 g/dL 32-36 [facility] Mucus LM Ql (Urine sed)Order ed By: Amado Anderson on 02-03-2023 Mucus Ql (Urine sed) 0 SEEN /hpf [facility] Nitrite Test strip Ql (U)Ord ered By: Amado Anderson on 02-03-2023 Nitrite Ql (U) Negative Negative [facility] No Panel InformationOrdered By: Amado Anderson on 02-03-2023 Estimated GFR (MDRD) Amer 96 mL/min >60 [facility] Comment on above: GFR Calc Estimated GFR (MDRD) Non-Af Amer 79 mL/min >60 [facility] Comment on above: Non- GFR Calc Troponin I High Sensitivity 7 pg/mL 3.0-78.0 [facility] Comment on above: Please Note: New Saloni t Units and Gender Specific Reference Ranges. For more information see Policy Stat Procedure [place] High Sensitivity Troponin (TNIH) and attachments. Platelets bldOrdered By: Nela Anderson on 02-03-2023 Platelets (Bld) [#/Vol] 319 10*3/uL 150-450 [facility] Protein Test strip Ql (U)Ord ered By: Amado Anderson on 02-03-2023 Protein Ql (U) Negative Negative [facility] Serum or plasma albumin josh urement (mass/volume)Ordered By: Amado Anderson on 02-03-2023 Albumin [Mass/Vol] 3.3 g/dL 3.2-5.0 [facility] Serum or plasma albumin/glob ulin mass ratioOrdered By: Amado Anderson on 02-03-2023 Albumin/Globulin [Mass ratio] 0.9 {ratio} 0.9-2.4 [facility] Serum or plasma calcium josh urement (mass/volume)Ordered By: Amado Anderson on 02-03-2023 Calcium [Mass/Vol] 8.1 mg/dL 8.5-10.1 [facility] Serum or plasma creatinine m easurement (mass/volume)Ordered By: Amado Anderson on 02-03-2023 Creatinine [Mass/Vol] 0.96 mg/dL 0.70-1.30 [facility] Comment on above: The validity of the calculated GFR & GFRAA in patients over 70 years has not been determined. Clinical correlation is essential. Serum or plasma urea nitroge n measurement (mass/volume)Ordered By: Amado Anderson on 02-03-2023 Urea nitrogen [Mass/Vol] 12 mg/dL 7-18 [facility] Squamous epithelial cells de tection in urine sediment by light microscopyOrdered By: Amado Anderson on 02-03-2023 Epithelial cells.squamous LM Ql (Urine sed) 0 SEEN /hpf 0-5 [facility] Thin prep Papanicolaou smear with manual screeningOrdered By: Amado Anderson on 02-03-2023 Thin prep Papanicolaou smear with manual screening 15 U/L 15-37 [facility] Thin prep Papanicolaou smear with manual screening 4 5-15 [facility] Urine blood detectionOrdered By: Amado Anderson on 02-03-2023 RBC Ql (U) Negative Negative [facility] RBC Ql (U) 0-5 SEEN /hpf 0-5 [facility] Urine clarityOrdered By: Nela Anderson on 02-03-2023 Clarity (U) Clear Clear [facility] Urine color determinationOrd ered By: Amado Anderson on 02-03-2023 Color (U) Yellow Yellow [facility] Urine glucose detectionOrder ed By: Amado Anderson on 02-03-2023 Glucose Ql (U) Normal mg/dl Normal [facility] Urine leukocyte esterase det ection by dipstickOrdered By: Amado Anderson on 02-03-2023 Leukocyte esterase Test strip Ql (U) 500 /ul Negative [facility] Urine pHOrdered By: Amado hamm on 02-03-2023 pH (U) 8.0 [pH] 5.0 - 8.0 [facility] Urine sediment bacteria coun t by microscopy (number/high power field)Ordered By: Amado Anderson on 02-03-2023 Bacteria LM.HPF (Urine sed) [#/Area] 0 /[HPF] None Seen [facility] Urine specific gravity measu rementOrdered By: Amado Anderson on 02-03-2023 Specific gravity (U) [Rel density] 1.015 1.002-1.030 [facility] Urobilinogen Auto test strip Ql (U)Ordered By: Amado Anderson on 02-03-2023 Urobilinogen Ql (U) Normal mg/dl Normal [facility] Absolute lymphocyte countOrd ered By: Tyron Sosa on 01-18-2023 Lymphocytes Auto (Unsp spec) [#/Vol] 2.17 10*3/uL 0.83-4.51 [facility] Basophil percentageOrdered B y: Tyron Sosa on 01-18-2023 Basophils/100 WBC (Bld) 0.6 % 0-1 [facility] Chloride [Moles/Vol] 106 mmol/L 98-107 [facility] Eosinophils/100 WBC (Bld) 6.8 % 0-5 [facility] Glucose [Mass/Vol] 103 mg/dL 74-106 [facility] Comment on above: Fasting Glucose resu lt from 100 to 125 mg/dL suggests IMPAIRED HOMEOSTASIS per A.D.A. criteria. Neutrophils (Bld) [#/Vol] 2.9 10*3/uL 2.0-7.7 [facility] Neutrophils/100 WBC (Bld) 43.9 % 47-70 [facility] Potassium [Moles/Vol] 3.8 mmol/L 3.5-5.1 [facility] Sodium [Moles/Vol] 137 mmol/L 136-145 [facility] WBC (Bld) [#/Vol] 6.6 10*3/uL 4.4-11.0 [facility] Blood erythrocytes count (nu mber/volume)Ordered By: Tyron Sosa on 01-18-2023 RBC (Bld) [#/Vol] 4.07 10*6/uL 4.6-6.2 [facility] Blood hemoglobin measurement (mass/volume)Ordered By: Tyron Sosa on 01-18-2023 Hemoglobin (Bld) [Mass/Vol] 11.6 g/dL 13.0-16.5 [facility] Blood lymphocytes/100 leukoc ytesOrdered By: Tyron Sosa on 01-18-2023 Lymphocytes/100 WBC (Bld) 33.0 % 19-41 [facility] Blood monocytes/100 leukocyt esOrdered By: Tyron Sosa on 01-18-2023 Monocytes/100 WBC (Bld) 15.5 % 0-10 [facility] Blood platelet mean volumeOr dered By: Tyron Sosa on 01-18-2023 Platelet mean volume (Bld) [Entitic vol] 9.1 fL 6.2-12.0 [facility] Determination of erythrocyte mean corpuscular volume (MCV)Ordered By: Tyron Sosa on 01-18-2023 MCV (RBC) [Entitic vol] 91.6 fL 80-94 [facility] Hematocrit Auto (Bld) [Volum e fraction]Ordered By: Tyron Sosa on 01-18-2023 Hematocrit (Bld) [Volume fraction] 37.3 % 40-54 [facility] Laboratory - Chemistry and C hemistry - challengeOrdered By: Tyron Sosa on 01-18-2023 CO2 [Moles/Vol] 27.0 mmol/L 21.0-32.0 [facility] Urea nitrogen/Creatinine [Mass ratio] 18.5 mg/mg 10-20 [facility] Laboratory - Hematology and Cell countsOrdered By: Tyron Sosa on 01-18-2023 Erythrocyte distribution width (RBC) [Entitic vol] 56.8 fL 35.1-43.9 [facility] Erythrocyte distribution width (RBC) [Ratio] 16.9 % 11.6-14.6 [facility] Immature granulocytes/100 WBC (Bld) 0.200 % 0.0-0.9 [facility] Comment on above: IG% - Immature Granu locytes (promyelocytes, myelocytes and metamyelocytes) > 1% indicates that a LEFT SHIFT is Present. MCH (RBC) [Entitic mass] 28.5 pg 27.0-32.0 [facility] Nucleated RBC/100 WBC (Bld) [Ratio] 0 % 0-5 [facility] MCHC Auto (RBC) [Mass/Vol]Or dered By: Tyron Sosa on 01-18-2023 MCHC (RBC) [Mass/Vol] 31.1 g/dL 32-36 [facility] No Panel InformationOrdered By: Tyron Sosa on 01-18-2023 Troponin I High Sensitivity 10 pg/mL 3.0-78.0 [facility] Comment on above: Please Note: New Saloni t Units and Gender Specific Reference Ranges. For more information see Policy Stat Procedure [place] High Sensitivity Troponin (TNIH) and attachments. Estimated Creatinine Clearance Calc 40.20 ml/min [facility] Estimated GFR (MDRD) Amer 75 mL/min >60 [facility] Comment on above: GFR Calc Estimated GFR (MDRD) Non-Af Amer 62 mL/min >60 [facility] Comment on above: Non- GFR Calc Platelets bldOrdered By: Kaelyn Sosa on 01-18-2023 Platelets (Bld) [#/Vol] 214 10*3/uL 150-450 [facility] Serum or plasma calcium josh urement (mass/volume)Ordered By: Tyron Sosa on 01-18-2023 Calcium [Mass/Vol] 8.7 mg/dL 8.5-10.1 [facility] Serum or plasma creatinine m easurement (mass/volume)Ordered By: Tyron Sosa on 01-18-2023 Creatinine [Mass/Vol] 1.19 mg/dL 0.70-1.30 [facility] Comment on above: The validity of the calculated GFR & GFRAA in patients over 70 years has not been determined. Clinical correlation is essential. Serum or plasma urea nitroge n measurement (mass/volume)Ordered By: Tyron Sosa on 01-18-2023 Urea nitrogen [Mass/Vol] 22 mg/dL 7-18 [facility] Thin prep Papanicolaou smear with manual screeningOrdered By: Tyron Sosa on 01-18-2023 Thin prep Papanicolaou smear with manual screening 4 5-15 [facility] Absolute lymphocyte countOrd ered By: Mariana Rich on 11-12-2022 Lymphocytes Auto (Unsp spec) [#/Vol] 1.11 10*3/uL 0.83-4.51 [facility] Basophil percentageOrdered B y: Mariana Rich on 11-12-2022 Basophil percentage 3.0 mg/dL 2.5-4.9 [facility] Basophils/100 WBC (Bld) 0.8 % 0-1 [facility] Bilirubin [Mass/Vol] 1.40 mg/dL 0.20-1.00 [facility] Comment on above: For patients on eltr ombopag therapy, use of Dimension [place] TBIL is not recommended. Chloride [Moles/Vol] 109 mmol/L 98-107 [facility] Eosinophils/100 WBC (Bld) 7.1 % 0-5 [facility] Glucose [Mass/Vol] 112 mg/dL 74-106 [facility] Comment on above: Fasting Glucose resu lt from 100 to 125 mg/dL suggests IMPAIRED HOMEOSTASIS per A.D.A. criteria. Neutrophils (Bld) [#/Vol] 2.5 10*3/uL 2.0-7.7 [facility] Neutrophils/100 WBC (Bld) 47.6 % 47-70 [facility] Potassium [Moles/Vol] 3.7 mmol/L 3.5-5.1 [facility] Protein [Mass/Vol] 5.9 g/dL 6.4-8.2 [facility] Sodium [Moles/Vol] 140 mmol/L 136-145 [facility] WBC (Bld) [#/Vol] 5.2 10*3/uL 4.4-11.0 [facility] Blood erythrocytes count (nu mber/volume)Ordered By: Mariana Rich on 11-12-2022 RBC (Bld) [#/Vol] 3.70 10*6/uL 4.6-6.2 [facility] Blood hemoglobin measurement (mass/volume)Ordered By: Mariana Rich on 11-12-2022 Hemoglobin (Bld) [Mass/Vol] 10.7 g/dL 13.0-16.5 [facility] Blood lymphocytes/100 leukoc ytesOrdered By: Mariana Rich on 11-12-2022 Lymphocytes/100 WBC (Bld) 21.3 % 19-41 [facility] Blood monocytes/100 leukocyt esOrdered By: Mariana Rich on 11-12-2022 Monocytes/100 WBC (Bld) 22.8 % 0-10 [facility] Blood platelet mean volumeOr dered By: Mariana Rich on 11-12-2022 Platelet mean volume (Bld) [Entitic vol] 8.8 fL 6.2-12.0 [facility] Determination of erythrocyte mean corpuscular volume (MCV)Ordered By: Mariana Rich on 11-12-2022 MCV (RBC) [Entitic vol] 90.5 fL 80-94 [facility] Hematocrit Auto (Bld) [Volum e fraction]Ordered By: Mariana Rich on 11-12-2022 Hematocrit (Bld) [Volume fraction] 33.5 % 40-54 [facility] Laboratory - Chemistry and C hemistry - challengeOrdered By: Mariana Rich on 11-12-2022 ALP [Catalytic activity/Vol] 45 U/L 45-117 [facility] ALT [Catalytic activity/Vol] 13 U/L 16-61 [facility] CO2 [Moles/Vol] 25.0 mmol/L 21.0-32.0 [facility] Globulin (S) [Mass/Vol] 3.4 g/dL 2.2-4.2 [facility] Magnesium [Mass/Vol] 2.0 mg/dL 1.6-2.6 [facility] Urea nitrogen/Creatinine [Mass ratio] 14.9 mg/mg 10-20 [facility] Laboratory - Hematology and Cell countsOrdered By: Mariana Rich on 11-12-2022 Erythrocyte distribution width (RBC) [Entitic vol] 51.8 fL 35.1-43.9 [facility] Erythrocyte distribution width (RBC) [Ratio] 15.7 % 11.6-14.6 [facility] Immature granulocytes/100 WBC (Bld) 0.400 % 0.0-0.9 [facility] Comment on above: IG% - Immature Granu locytes (promyelocytes, myelocytes and metamyelocytes) > 1% indicates that a LEFT SHIFT is Present. MCH (RBC) [Entitic mass] 28.9 pg 27.0-32.0 [facility] Nucleated RBC/100 WBC (Bld) [Ratio] 0 % 0-5 [facility] MCHC Auto (RBC) [Mass/Vol]Or dered By: Mariana Rich on 11-12-2022 MCHC (RBC) [Mass/Vol] 31.9 g/dL 32-36 [facility] No Panel InformationOrdered By: Mariana Rich on 11-12-2022 Estimated Creatinine Clearance Calc 47.83 ml/min [facility] Estimated GFR (MDRD) Amer 130 mL/min >60 [facility] Comment on above: GFR Calc Estimated GFR (MDRD) Non-Af Amer 108 mL/min >60 [facility] Comment on above: Non- GFR Calc Platelets bldOrdered By: Mae Rich on 11-12-2022 Platelets (Bld) [#/Vol] 202 10*3/uL 150-450 [facility] Serum or plasma albumin josh urement (mass/volume)Ordered By: Mariana Rich on 11-12-2022 Albumin [Mass/Vol] 2.5 g/dL 3.2-5.0 [facility] Serum or plasma albumin/glob ulin mass ratioOrdered By: Mariana Rich on 11-12-2022 Albumin/Globulin [Mass ratio] 0.7 {ratio} 0.9-2.4 [facility] Serum or plasma calcium josh urement (mass/volume)Ordered By: Mariana Rich on 11-12-2022 Calcium [Mass/Vol] 8.1 mg/dL 8.5-10.1 [facility] Serum or plasma creatinine m easurement (mass/volume)Ordered By: Mariana Rich on 11-12-2022 Creatinine [Mass/Vol] 0.74 mg/dL 0.70-1.30 [facility] Comment on above: The validity of the calculated GFR & GFRAA in patients over 70 years has not been determined. Clinical correlation is essential. Serum or plasma urea nitroge n measurement (mass/volume)Ordered By: Mariana Rich on 11-12-2022 Urea nitrogen [Mass/Vol] 11 mg/dL 7-18 [facility] Thin prep Papanicolaou smear with manual screeningOrdered By: Mariana Rich on 11-12-2022 Thin prep Papanicolaou smear with manual screening 24 U/L 15-37 [facility] Thin prep Papanicolaou smear with manual screening 6 5-15 [facility] Absolute lymphocyte countOrd ered By: Khari Lindsay on 11-11-2022 Lymphocytes Auto (Unsp spec) [#/Vol] 1.90 10*3/uL 0.83-4.51 [facility] Basophil percentageOrdered B y: Khari Lindsay on 11-11-2022 Basophils/100 WBC (Bld) 0.4 % 0-1 [facility] Chloride [Moles/Vol] 106 mmol/L 98-107 [facility] Eosinophils/100 WBC (Bld) 5.3 % 0-5 [facility] Glucose [Mass/Vol] 130 mg/dL 74-106 [facility] Comment on above: Fasting Glucose resu lt greater than or equal to 126 mg/dL suggests DIABETES MELLITUS per A.D.A. criteria. Neutrophils (Bld) [#/Vol] 2.8 10*3/uL 2.0-7.7 [facility] Neutrophils/100 WBC (Bld) 39.5 % 47-70 [facility] Potassium [Moles/Vol] 3.4 mmol/L 3.5-5.1 [facility] Sodium [Moles/Vol] 141 mmol/L 136-145 [facility] WBC (Bld) [#/Vol] 7.0 10*3/uL 4.4-11.0 [facility] Blood erythrocytes count (nu mber/volume)Ordered By: Khari Lindsay on 11-11-2022 RBC (Bld) [#/Vol] 4.14 10*6/uL 4.6-6.2 [facility] Blood hemoglobin measurement (mass/volume)Ordered By: Khari Lindsay on 11-11-2022 Hemoglobin (Bld) [Mass/Vol] 12.0 g/dL 13.0-16.5 [facility] Blood lymphocytes/100 leukoc ytesOrdered By: Khari Lindsay on 11-11-2022 Lymphocytes/100 WBC (Bld) 27.3 % 19-41 [facility] Blood monocytes/100 leukocyt esOrdered By: Khari Lindsay on 11-11-2022 Monocytes/100 WBC (Bld) 27.2 % 0-10 [facility] Blood platelet mean volumeOr dered By: Khari Lindsay on 11-11-2022 Platelet mean volume (Bld) [Entitic vol] 9.0 fL 6.2-12.0 [facility] Determination of erythrocyte mean corpuscular volume (MCV)Ordered By: Khari Lindsay on 11-11-2022 MCV (RBC) [Entitic vol] 89.6 fL 80-94 [facility] Hematocrit Auto (Bld) [Volum e fraction]Ordered By: Khari Lindsay on 11-11-2022 Hematocrit (Bld) [Volume fraction] 37.1 % 40-54 [facility] Laboratory - Chemistry and C hemistry - challengeOrdered By: Khari Lindsay on 11-11-2022 CO2 [Moles/Vol] 26.0 mmol/L 21.0-32.0 [facility] Magnesium [Mass/Vol] 1.9 mg/dL 1.6-2.6 [facility] Urea nitrogen/Creatinine [Mass ratio] 16.4 mg/mg 10-20 [facility] Laboratory - Hematology and Cell countsOrdered By: Khari Lindsay on 11-11-2022 Anisocytosis Ql (Bld) 1+ [facility] Erythrocyte distribution width (RBC) [Entitic vol] 51.0 fL 35.1-43.9 [facility] Erythrocyte distribution width (RBC) [Ratio] 15.5 % 11.6-14.6 [facility] Immature granulocytes/100 WBC (Bld) 0.300 % 0.0-0.9 [facility] Comment on above: IG% - Immature Granu locytes (promyelocytes, myelocytes and metamyelocytes) > 1% indicates that a LEFT SHIFT is Present. MCH (RBC) [Entitic mass] 29.0 pg 27.0-32.0 [facility] Nucleated RBC/100 WBC (Bld) [Ratio] 0 % 0-5 [facility] MCHC Auto (RBC) [Mass/Vol]Or dered By: Khari Lindsay on 11-11-2022 MCHC (RBC) [Mass/Vol] 32.3 g/dL 32-36 [facility] No Panel InformationOrdered By: Khari Lindsay on 11-11-2022 Estimated Creatinine Clearance Calc 50.60 ml/min [facility] Estimated GFR (MDRD) Amer 101 mL/min >60 [facility] Comment on above: GFR Calc Estimated GFR (MDRD) Non-Af Amer 84 mL/min >60 [facility] Comment on above: Non- GFR Calc Thyroid Stimulating Hormone (TSH) 2.35 uIU/mL 0.358-3.74 [facility] Platelets bldOrdered By: Obinna Lindsay on 11-11-2022 Platelets (Bld) [#/Vol] 247 10*3/uL 150-450 [facility] Serum or plasma calcium josh urement (mass/volume)Ordered By: Khari Lindsay on 11-11-2022 Calcium [Mass/Vol] 8.7 mg/dL 8.5-10.1 [facility] Serum or plasma creatinine m easurement (mass/volume)Ordered By: Khari Lindsay on 11-11-2022 Creatinine [Mass/Vol] 0.91 mg/dL 0.70-1.30 [facility] Comment on above: The validity of the calculated GFR & GFRAA in patients over 70 years has not been determined. Clinical correlation is essential. Serum or plasma urea nitroge n measurement (mass/volume)Ordered By: Khari Lindsay on 11-11-2022 Urea nitrogen [Mass/Vol] 15 mg/dL 7-18 [facility] Thin prep Papanicolaou smear with manual screeningOrdered By: Khari Lindsay on 11-11-2022 Thin prep Papanicolaou smear with manual screening 9 5-15 [facility] Whole blood hemoglobin A1c/t otal hemoglobin ratio (mass fraction)Ordered By: Mariana Rich on 11-11-2022 HbA1c (Bld) [Mass fraction] 6.6 % 3.8-5.6 [facility] Comment on above: Normal < 5.7 % Predi abetic 5.7 - 6.4 % Diabetic >or= 6.5 % Please note range changes. Absolute lymphocyte countOrd ered By: Vito Fernandes on 10-26-2022 Lymphocytes Auto (Unsp spec) [#/Vol] 0.95 10*3/uL 0.83-4.51 [facility] Basophil percentageOrdered B y: Vito Fernandes on 10-26-2022 Basophils/100 WBC (Bld) 0.7 % 0-1 [facility] Chloride [Moles/Vol] 108 mmol/L 98-107 [facility] Eosinophils/100 WBC (Bld) 6.4 % 0-5 [facility] Glucose [Mass/Vol] 132 mg/dL 74-106 [facility] Comment on above: Fasting Glucose resu lt greater than or equal to 126 mg/dL suggests DIABETES MELLITUS per A.D.A. criteria. Neutrophils (Bld) [#/Vol] 2.1 10*3/uL 2.0-7.7 [facility] Neutrophils/100 WBC (Bld) 52.0 % 47-70 [facility] Potassium [Moles/Vol] 3.7 mmol/L 3.5-5.1 [facility] Sodium [Moles/Vol] 140 mmol/L 136-145 [facility] WBC (Bld) [#/Vol] 4.1 10*3/uL 4.4-11.0 [facility] Blood erythrocytes count (nu mber/volume)Ordered By: Vitovicky Fernandes on 10-26-2022 RBC (Bld) [#/Vol] 3.86 10*6/uL 4.6-6.2 [facility] Blood hemoglobin measurement (mass/volume)Ordered By: Vitovicky Fernandes on 10-26-2022 Hemoglobin (Bld) [Mass/Vol] 11.4 g/dL 13.0-16.5 [facility] Blood lymphocytes/100 leukoc ytesOrdered By: Vito Fernandes on 10-26-2022 Lymphocytes/100 WBC (Bld) 23.3 % 19-41 [facility] Blood monocytes/100 leukocyt esOrdered By: Vitovicky Fernandes on 10-26-2022 Monocytes/100 WBC (Bld) 17.4 % 0-10 [facility] Blood platelet mean volumeOr dered By: Vito Fernandes on 10-26-2022 Platelet mean volume (Bld) [Entitic vol] 8.1 fL 6.2-12.0 [facility] Determination of erythrocyte mean corpuscular volume (MCV)Ordered By: Vito Fernandes on 10-26-2022 MCV (RBC) [Entitic vol] 89.6 fL 80-94 [facility] Hematocrit Auto (Bld) [Volum e fraction]Ordered By: Vitovicky Fernandes on 10-26-2022 Hematocrit (Bld) [Volume fraction] 34.6 % 40-54 [facility] Laboratory - Chemistry and C hemistry - challengeOrdered By: Vito Fernandes on 10-26-2022 CO2 [Moles/Vol] 28.0 mmol/L 21.0-32.0 [facility] Natriuretic peptide B (Bld) [Mass/Vol] 80.4 pg/mL 0-100 [facility] Urea nitrogen/Creatinine [Mass ratio] 16.1 mg/mg 10-20 [facility] Laboratory - Hematology and Cell countsOrdered By: Vito Fernandes on 10-26-2022 Erythrocyte distribution width (RBC) [Entitic vol] 50.1 fL 35.1-43.9 [facility] Erythrocyte distribution width (RBC) [Ratio] 15.2 % 11.6-14.6 [facility] Immature granulocytes/100 WBC (Bld) 0.200 % 0.0-0.9 [facility] Comment on above: IG% - Immature Granu locytes (promyelocytes, myelocytes and metamyelocytes) > 1% indicates that a LEFT SHIFT is Present. MCH (RBC) [Entitic mass] 29.5 pg 27.0-32.0 [facility] Nucleated RBC/100 WBC (Bld) [Ratio] 0 % 0-5 [facility] MCHC Auto (RBC) [Mass/Vol]Or dered By: Vito Fernandes on 10-26-2022 MCHC (RBC) [Mass/Vol] 32.9 g/dL 32-36 [facility] No Panel InformationOrdered By: Vito Fernandes on 10-26-2022 Estimated GFR (MDRD) Amer 107 mL/min >60 [facility] Comment on above: GFR Calc Estimated GFR (MDRD) Non-Af Amer 89 mL/min >60 [facility] Comment on above: Non- GFR Calc Troponin I High Sensitivity 5 pg/mL 3.0-78.0 [facility] Comment on above: Please Note: New Saloni t Units and Gender Specific Reference Ranges. For more information see Policy Stat Procedure [place] High Sensitivity Troponin (TNIH) and attachments. Platelets bldOrdered By: Vito Fernandes on 10-26-2022 Platelets (Bld) [#/Vol] 214 10*3/uL 150-450 [facility] Serum or plasma calcium josh urement (mass/volume)Ordered By: Vito Fernandes on 10-26-2022 Calcium [Mass/Vol] 8.3 mg/dL 8.5-10.1 [facility] Serum or plasma creatinine m easurement (mass/volume)Ordered By: Vito Fernandes on 10-26-2022 Creatinine [Mass/Vol] 0.87 mg/dL 0.70-1.30 [facility] Comment on above: The validity of the calculated GFR & GFRAA in patients over 70 years has not been determined. Clinical correlation is essential. Serum or plasma urea nitroge n measurement (mass/volume)Ordered By: Vito Fernandes on 10-26-2022 Urea nitrogen [Mass/Vol] 14 mg/dL 7-18 [facility] Thin prep Papanicolaou smear with manual screeningOrdered By: Vitovicky Fernandes on 10-26-2022 Thin prep Papanicolaou smear with manual screening 4 5-15 [facility] Absolute lymphocyte countOrd ered By: Dr. Mccullough on 09-03-2022 Lymphocytes Auto (Unsp spec) [#/Vol] 1.50 10*3/uL 0.83-4.51 [facility] Basophil percentageOrdered B y: Dr. Mccullough on 09-03-2022 Basophils/100 WBC (Bld) 0.7 % 0-1 [facility] Bilirubin [Mass/Vol] 1.00 mg/dL 0.20-1.00 [facility] Comment on above: For patients on eltr ombopag therapy, use of Dimension [place] TBIL is not recommended. Chloride [Moles/Vol] 108 mmol/L 98-107 [facility] Eosinophils/100 WBC (Bld) 5.1 % 0-5 [facility] Glucose [Mass/Vol] 86 mg/dL 74-106 [facility] Neutrophils (Bld) [#/Vol] 3.2 10*3/uL 2.0-7.7 [facility] Neutrophils/100 WBC (Bld) 53.2 % 47-70 [facility] Potassium [Moles/Vol] 4.0 mmol/L 3.5-5.1 [facility] Protein [Mass/Vol] 7.4 g/dL 6.4-8.2 [facility] Sodium [Moles/Vol] 139 mmol/L 136-145 [facility] WBC (Bld) [#/Vol] 6.0 10*3/uL 4.4-11.0 [facility] Blood erythrocytes count (nu mber/volume)Ordered By: Dr. Mccullough on 09-03-2022 RBC (Bld) [#/Vol] 3.97 10*6/uL 4.6-6.2 [facility] Blood hemoglobin measurement (mass/volume)Ordered By: Dr. Mccullough on 09-03-2022 Hemoglobin (Bld) [Mass/Vol] 11.5 g/dL 13.0-16.5 [facility] Blood lymphocytes/100 leukoc ytesOrdered By: Dr. Mccullough on 09-03-2022 Lymphocytes/100 WBC (Bld) 24.9 % 19-41 [facility] Blood monocytes/100 leukocyt esOrdered By: Dr. Mccullough on 09-03-2022 Monocytes/100 WBC (Bld) 15.8 % 0-10 [facility] Blood platelet mean volumeOr dered By: Dr. Mccullough on 09-03-2022 Platelet mean volume (Bld) [Entitic vol] 8.9 fL 6.2-12.0 [facility] Determination of erythrocyte mean corpuscular volume (MCV)Ordered By: Dr. Mccullough on 09-03-2022 MCV (RBC) [Entitic vol] 92.7 fL 80-94 [facility] Hematocrit Auto (Bld) [Volum e fraction]Ordered By: Dr. Mccullough on 09-03-2022 Hematocrit (Bld) [Volume fraction] 36.8 % 40-54 [facility] Laboratory - Chemistry and C hemistry - challengeOrdered By: Dr. Mccullough on 09-03-2022 ALP [Catalytic activity/Vol] 59 U/L 45-117 [facility] ALT [Catalytic activity/Vol] 14 U/L 16-61 [facility] CO2 [Moles/Vol] 26.0 mmol/L 21.0-32.0 [facility] Globulin (S) [Mass/Vol] 4.1 g/dL 2.2-4.2 [facility] Urea nitrogen/Creatinine [Mass ratio] 19.0 mg/mg 10-20 [facility] Laboratory - Hematology and Cell countsOrdered By: Dr. Mccullough on 09-03-2022 Erythrocyte distribution width (RBC) [Entitic vol] 53.1 fL 35.1-43.9 [facility] Erythrocyte distribution width (RBC) [Ratio] 15.5 % 11.6-14.6 [facility] Immature granulocytes/100 WBC (Bld) 0.300 % 0.0-0.9 [facility] Comment on above: IG% - Immature Granu locytes (promyelocytes, myelocytes and metamyelocytes) > 1% indicates that a LEFT SHIFT is Present. MCH (RBC) [Entitic mass] 29.0 pg 27.0-32.0 [facility] Nucleated RBC/100 WBC (Bld) [Ratio] 0 % 0-5 [facility] MCHC Auto (RBC) [Mass/Vol]Or dered By: Dr. Mccullough on 09-03-2022 MCHC (RBC) [Mass/Vol] 31.3 g/dL 32-36 [facility] No Panel InformationOrdered By: Dr. Mccullough on 09-03-2022 Estimated GFR (MDRD) Amer 104 mL/min >60 [facility] Comment on above: GFR Calc Estimated GFR (MDRD) Non-Af Amer 86 mL/min >60 [facility] Comment on above: Non- GFR Calc Thyroid Stimulating Hormone (TSH) 2.20 uIU/mL 0.358-3.74 [facility] Vitamin D 25-Hydroxy 35.8 ng/mL [facility] Comment on above: Vitamin D 25(OH) Sta tus Range Deficiency <20 ng/mL (50nmol/L) Insufficiency 20 - 30 ng/mL (50 - 75 nmol/L) Sufficiency 30 - 100 ng/mL (75 - 250 nmol/L) Toxicity >100 ng/mL (>250 nmol/L) Platelets bldOrdered By: Dr. Mccullough on 09-03-2022 Platelets (Bld) [#/Vol] 275 10*3/uL 150-450 [facility] Serum or plasma albumin josh urement (mass/volume)Ordered By: Dr. Mccullough on 09-03-2022 Albumin [Mass/Vol] 3.3 g/dL 3.2-5.0 [facility] Serum or plasma albumin/glob ulin mass ratioOrdered By: Dr. Mccullough on 09-03-2022 Albumin/Globulin [Mass ratio] 0.8 {ratio} 0.9-2.4 [facility] Serum or plasma calcium josh urement (mass/volume)Ordered By: Dr. Mccullough on 09-03-2022 Calcium [Mass/Vol] 8.9 mg/dL 8.5-10.1 [facility] Serum or plasma creatinine m easurement (mass/volume)Ordered By: Dr. Mccullough on 09-03-2022 Creatinine [Mass/Vol] 0.89 mg/dL 0.70-1.30 [facility] Comment on above: The validity of the calculated GFR & GFRAA in patients over 70 years has not been determined. Clinical correlation is essential. Serum or plasma urea nitroge n measurement (mass/volume)Ordered By: Dr. Mccullough on 09-03-2022 Urea nitrogen [Mass/Vol] 17 mg/dL 7-18 [facility] Thin prep Papanicolaou smear with manual screeningOrdered By: Dr. Mccullough on 09-03-2022 Thin prep Papanicolaou smear with manual screening 16 U/L 15-37 [facility] Thin prep Papanicolaou smear with manual screening 5 5-15 [facility] Absolute lymphocyte countOrd ered By: Dr. Mccullough on 06-24-2022 Lymphocytes Auto (Unsp spec) [#/Vol] 1.11 10*3/uL 0.83-4.51 [facility] Basophil percentageOrdered B y: Dr. Mccullough on 06-24-2022 Basophils/100 WBC (Bld) 0.6 % 0-1 [facility] Chloride [Moles/Vol] 104 mmol/L 98-107 [facility] Eosinophils/100 WBC (Bld) 5.6 % 0-5 [facility] Glucose [Mass/Vol] 102 mg/dL 74-106 [facility] Comment on above: Fasting Glucose resu lt from 100 to 125 mg/dL suggests IMPAIRED HOMEOSTASIS per A.D.A. criteria. Neutrophils (Bld) [#/Vol] 2.7 10*3/uL 2.0-7.7 [facility] Neutrophils/100 WBC (Bld) 54.6 % 47-70 [facility] Potassium [Moles/Vol] 3.8 mmol/L 3.5-5.1 [facility] Sodium [Moles/Vol] 138 mmol/L 136-145 [facility] WBC (Bld) [#/Vol] 5.0 10*3/uL 4.4-11.0 [facility] Blood erythrocytes count (nu mber/volume)Ordered By: Dr. Mccullough on 06-24-2022 RBC (Bld) [#/Vol] 4.10 10*6/uL 4.6-6.2 [facility] Blood hemoglobin measurement (mass/volume)Ordered By: Dr. Mccullough on 06-24-2022 Hemoglobin (Bld) [Mass/Vol] 11.4 g/dL 13.0-16.5 [facility] Blood lymphocytes/100 leukoc ytesOrdered By: Dr. Mccullough on 06-24-2022 Lymphocytes/100 WBC (Bld) 22.3 % 19-41 [facility] Blood monocytes/100 leukocyt esOrdered By: Dr. Mccullough on 06-24-2022 Monocytes/100 WBC (Bld) 16.7 % 0-10 [facility] Blood platelet mean volumeOr dered By: Dr. Mccullough on 06-24-2022 Platelet mean volume (Bld) [Entitic vol] 9.1 fL 6.2-12.0 [facility] Determination of erythrocyte mean corpuscular volume (MCV)Ordered By: Dr. Mccullough on 06-24-2022 MCV (RBC) [Entitic vol] 90.7 fL 80-94 [facility] Hematocrit Auto (Bld) [Volum e fraction]Ordered By: Dr. Mccullough on 06-24-2022 Hematocrit (Bld) [Volume fraction] 37.2 % 40-54 [facility] Laboratory - Chemistry and C hemistry - challengeOrdered By: Dr. Mccullough on 06-24-2022 CO2 [Moles/Vol] 30.0 mmol/L 21.0-32.0 [facility] Urea nitrogen/Creatinine [Mass ratio] 16.5 mg/mg 10-20 [facility] Laboratory - Hematology and Cell countsOrdered By: Dr. Mccullough on 06-24-2022 Erythrocyte distribution width (RBC) [Entitic vol] 57.4 fL 35.1-43.9 [facility] Erythrocyte distribution width (RBC) [Ratio] 17.2 % 11.6-14.6 [facility] Immature granulocytes/100 WBC (Bld) 0.200 % 0.0-0.9 [facility] Comment on above: IG% - Immature Granu locytes (promyelocytes, myelocytes and metamyelocytes) > 1% indicates that a LEFT SHIFT is Present. MCH (RBC) [Entitic mass] 27.8 pg 27.0-32.0 [facility] Nucleated RBC/100 WBC (Bld) [Ratio] 0 % 0-5 [facility] MCHC Auto (RBC) [Mass/Vol]Or dered By: Dr. Mccullough on 06-24-2022 MCHC (RBC) [Mass/Vol] 30.6 g/dL 32-36 [facility] No Panel InformationOrdered By: Dr. Mccullough on 06-24-2022 Estimated GFR (MDRD) Amer 120 mL/min >60 [facility] Comment on above: GFR Calc Estimated GFR (MDRD) Non-Af Amer 99 mL/min >60 [facility] Comment on above: Non- GFR Calc Platelets bldOrdered By: Dr. Mccullough on 06-24-2022 Platelets (Bld) [#/Vol] 228 10*3/uL 150-450 [facility] Serum or plasma calcium josh urement (mass/volume)Ordered By: Dr. Mccullough on 06-24-2022 Calcium [Mass/Vol] 8.6 mg/dL 8.5-10.1 [facility] Serum or plasma creatinine m easurement (mass/volume)Ordered By: Dr. Mccullough on 06-24-2022 Creatinine [Mass/Vol] 0.79 mg/dL 0.70-1.30 [facility] Comment on above: The validity of the calculated GFR & GFRAA in patients over 70 years has not been determined. Clinical correlation is essential. Serum or plasma urea nitroge n measurement (mass/volume)Ordered By: Dr. Mccullough on 06-24-2022 Urea nitrogen [Mass/Vol] 13 mg/dL 7-18 [facility] Thin prep Papanicolaou smear with manual screeningOrdered By: Dr. Mccullough on 06-24-2022 Thin prep Papanicolaou smear with manual screening 4 5-15 [facility] Absolute lymphocyte countOrd ered By: Dr. Mccullough on 03-05-2022 Lymphocytes Auto (Unsp spec) [#/Vol] 1.29 10*3/uL 0.83-4.51 [facility] Basophil percentageOrdered B y: Dr. Mccullough on 03-05-2022 Basophils/100 WBC (Bld) 0.3 % 0-1 [facility] Bilirubin [Mass/Vol] 1.20 mg/dL 0.20-1.00 [facility] Comment on above: For patients on eltr ombopag therapy, use of Dimension [place] TBIL is not recommended. Chloride [Moles/Vol] 105 mmol/L 98-107 [facility] Eosinophils/100 WBC (Bld) 5.4 % 0-5 [facility] Glucose [Mass/Vol] 103 mg/dL 74-106 [facility] Comment on above: Fasting Glucose resu lt from 100 to 125 mg/dL suggests IMPAIRED HOMEOSTASIS per A.D.A. criteria. Neutrophils (Bld) [#/Vol] 3.3 10*3/uL 2.0-7.7 [facility] Neutrophils/100 WBC (Bld) 56.0 % 47-70 [facility] Potassium [Moles/Vol] 3.7 mmol/L 3.5-5.1 [facility] Protein [Mass/Vol] 7.3 g/dL 6.4-8.2 [facility] Sodium [Moles/Vol] 138 mmol/L 136-145 [facility] WBC (Bld) [#/Vol] 5.9 10*3/uL 4.4-11.0 [facility] Blood erythrocytes count (nu mber/volume)Ordered By: Dr. Mccullough on 03-05-2022 RBC (Bld) [#/Vol] 3.86 10*6/uL 4.6-6.2 [facility] Blood hemoglobin measurement (mass/volume)Ordered By: Dr. Mccullough on 03-05-2022 Hemoglobin (Bld) [Mass/Vol] 11.0 g/dL 13.0-16.5 [facility] Blood lymphocytes/100 leukoc ytesOrdered By: Dr. Mccullough on 12-15-2022 Lymphocytes/100 WBC (Bld) 21.8 % 19-41 [facility] Blood monocytes/100 leukocyt esOrdered By: Dr. Mccullough on 03-05-2022 Monocytes/100 WBC (Bld) 16.2 % 0-10 [facility] Blood platelet mean volumeOr dered By: Dr. Mccullough on 03-05-2022 Platelet mean volume (Bld) [Entitic vol] 8.9 fL 6.2-12.0 [facility] Determination of erythrocyte mean corpuscular volume (MCV)Ordered By: Dr. Mccullough on 03-05-2022 MCV (RBC) [Entitic vol] 90.9 fL 80-94 [facility] Hematocrit Auto (Bld) [Volum e fraction]Ordered By: Dr. Mccullough on 03-05-2022 Hematocrit (Bld) [Volume fraction] 35.1 % 40-54 [facility] Laboratory - Chemistry and C hemistry - challengeOrdered By: Dr. Mccullough on 03-05-2022 ALP [Catalytic activity/Vol] 51 U/L 45-117 [facility] ALT [Catalytic activity/Vol] 13 U/L 16-61 [facility] CO2 [Moles/Vol] 29.0 mmol/L 21.0-32.0 [facility] Globulin (S) [Mass/Vol] 4.1 g/dL 2.2-4.2 [facility] Urea nitrogen/Creatinine [Mass ratio] 15.1 mg/mg 10-20 [facility] Laboratory - Hematology and Cell countsOrdered By: Dr. Mccullough on 03-05-2022 Erythrocyte distribution width (RBC) [Entitic vol] 52.4 fL 35.1-43.9 [facility] Erythrocyte distribution width (RBC) [Ratio] 15.8 % 11.6-14.6 [facility] Immature granulocytes/100 WBC (Bld) 0.300 % 0.0-0.9 [facility] Comment on above: IG% - Immature Granu locytes (promyelocytes, myelocytes and metamyelocytes) > 1% indicates that a LEFT SHIFT is Present. MCH (RBC) [Entitic mass] 28.5 pg 27.0-32.0 [facility] Nucleated RBC/100 WBC (Bld) [Ratio] 0 % 0-5 [facility] Auto (RBC) [Mass/Vol]Or dered By: Dr. Mccullough on 03-05-2022 MCHC (RBC) [Mass/Vol] 31.3 g/dL 32-36 [facility] No Panel InformationOrdered By: Dr. Mccullough on 03-05-2022 Estimated GFR (MDRD) Amer 119 mL/min >60 [facility] Comment on above: GFR Calc Estimated GFR (MDRD) Non-Af Amer 99 mL/min >60 [facility] Comment on above: Non- GFR Calc Thyroid Stimulating Hormone (TSH) 1.15 uIU/mL 0.358-3.74 [facility] Vitamin D 25-Hydroxy 25.3 ng/mL [facility] Comment on above: Vitamin D 25(OH) Sta tus Range Deficiency <20 ng/mL (50nmol/L) Insufficiency 20 - 30 ng/mL (50 - 75 nmol/L) Sufficiency 30 - 100 ng/mL (75 - 250 nmol/L) Toxicity >100 ng/mL (>250 nmol/L) Platelets bldOrdered By: Dr. Mccullough on 03-05-2022 Platelets (Bld) [#/Vol] 257 10*3/uL 150-450 [facility] Serum or plasma albumin josh urement (mass/volume)Ordered By: Dr. Mccullough on 03-05-2022 Albumin [Mass/Vol] 3.2 g/dL 3.2-5.0 [facility] Serum or plasma albumin/glob ulin mass ratioOrdered By: Dr. Mccullough on 03-05-2022 Albumin/Globulin [Mass ratio] 0.8 {ratio} 0.9-2.4 [facility] Serum or plasma calcium josh urement (mass/volume)Ordered By: Dr. Mccullough on 03-05-2022 Calcium [Mass/Vol] 8.9 mg/dL 8.5-10.1 [facility] Serum or plasma creatinine m easurement (mass/volume)Ordered By: Dr. Mccullough on 03-05-2022 Creatinine [Mass/Vol] 0.80 mg/dL 0.70-1.30 [facility] Comment on above: The validity of the calculated GFR & GFRAA in patients over 70 years has not been determined. Clinical correlation is essential. Serum or plasma urea nitroge n measurement (mass/volume)Ordered By: Dr. Mccullough on 03-05-2022 Urea nitrogen [Mass/Vol] 12 mg/dL 7-18 [facility] Thin prep Papanicolaou smear with manual screeningOrdered By: Dr. Mccullough on 03-05-2022 Thin prep Papanicolaou smear with manual screening 12 U/L 15-37 [facility] Thin prep Papanicolaou smear with manual screening 4 5-15 [facility] Absolute lymphocyte countOrd ered By: Dr. Lund on 02-22-2022 Lymphocytes Auto (Unsp spec) [#/Vol] 1.29 10*3/uL 0.83-4.51 [facility] Basophil percentageOrdered B y: Dr. Lund on 02-22-2022 Basophils/100 WBC (Bld) 0.6 % 0-1 [facility] Bilirubin [Mass/Vol] 1.50 mg/dL 0.20-1.00 [facility] Comment on above: For patients on eltr ombopag therapy, use of Dimension [place] TBIL is not recommended. Chloride [Moles/Vol] 110 mmol/L 98-107 [facility] Cholesterol [Mass/Vol] 74 mg/dL <200 [facility] Comment on above: <200 mg/dL Desirable 200-240 mg/dL Borderline >240 mg/dL High Risk Eosinophils/100 WBC (Bld) 6.1 % 0-5 [facility] Glucose [Mass/Vol] 90 mg/dL 74-106 [facility] Neutrophils (Bld) [#/Vol] 2.3 10*3/uL 2.0-7.7 [facility] Neutrophils/100 WBC (Bld) 47.8 % 47-70 [facility] Potassium [Moles/Vol] 4.0 mmol/L 3.5-5.1 [facility] Protein [Mass/Vol] 5.9 g/dL 6.4-8.2 [facility] Sodium [Moles/Vol] 139 mmol/L 136-145 [facility] Triglyceride [Mass/Vol] 38 mg/dL <199 [facility] Comment on above: The drugs N-Acetylcy steine and Metamizole may falsely depress this assay.Serum Triglycerides Reference Interval Normal <150 mg/dL Borderline high 150 - 199 mg/dL High 200 - 499 mg/dL Very High > or = 500 mg/dL WBC (Bld) [#/Vol] 4.7 10*3/uL 4.4-11.0 [facility] Blood erythrocytes count (nu mber/volume)Ordered By: Dr. Lund on 02-22-2022 RBC (Bld) [#/Vol] 3.57 10*6/uL 4.6-6.2 [facility] Blood hemoglobin measurement (mass/volume)Ordered By: Dr. Lund on 02-22-2022 Hemoglobin (Bld) [Mass/Vol] 10.2 g/dL 13.0-16.5 [facility] Blood lymphocytes/100 leukoc ytesOrdered By: Dr. Lund on 02-22-2022 Lymphocytes/100 WBC (Bld) 27.3 % 19-41 [facility] Blood monocytes/100 leukocyt esOrdered By: Dr. Lund on 02-22-2022 Monocytes/100 WBC (Bld) 18.0 % 0-10 [facility] Blood platelet mean volumeOr dered By: Dr. Lund on 02-22-2022 Platelet mean volume (Bld) [Entitic vol] 9.2 fL 6.2-12.0 [facility] Determination of erythrocyte mean corpuscular volume (MCV)Ordered By: Dr. Lund on 02-22-2022 MCV (RBC) [Entitic vol] 90.8 fL 80-94 [facility] Hematocrit Auto (Bld) [Volum e fraction]Ordered By: Dr. Lund on 02-22-2022 Hematocrit (Bld) [Volume fraction] 32.4 % 40-54 [facility] Laboratory - Chemistry and C hemistry - challengeOrdered By: Dr. Lund on 02-22-2022 ALP [Catalytic activity/Vol] 44 U/L 45-117 [facility] ALT [Catalytic activity/Vol] 14 U/L 16-61 [facility] CO2 [Moles/Vol] 25.0 mmol/L 21.0-32.0 [facility] Globulin (S) [Mass/Vol] 3.0 g/dL 2.2-4.2 [facility] Urea nitrogen/Creatinine [Mass ratio] 18.6 mg/mg 10-20 [facility] Laboratory - Hematology and Cell countsOrdered By: Dr. Lund on 02-22-2022 Erythrocyte distribution width (RBC) [Entitic vol] 53.9 fL 35.1-43.9 [facility] Erythrocyte distribution width (RBC) [Ratio] 16.0 % 11.6-14.6 [facility] Immature granulocytes/100 WBC (Bld) 0.200 % 0.0-0.9 [facility] Comment on above: IG% - Immature Granu locytes (promyelocytes, myelocytes and metamyelocytes) > 1% indicates that a LEFT SHIFT is Present. MCH (RBC) [Entitic mass] 28.6 pg 27.0-32.0 [facility] Nucleated RBC/100 WBC (Bld) [Ratio] 0 % 0-5 [facility] MCHC Auto (RBC) [Mass/Vol]Or dered By: Dr. Lund on 02-22-2022 MCHC (RBC) [Mass/Vol] 31.5 g/dL 32-36 [facility] No Panel InformationOrdered By: Dr. Lund on 02-22-2022 Estimated Creatinine Clearance Calc 54.15 ml/min [facility] Estimated GFR (MDRD) Amer 127 mL/min >60 [facility] Comment on above: GFR Calc Estimated GFR (MDRD) Non-Af Amer 105 mL/min >60 [facility] Comment on above: Non- GFR Calc Thyroid Stimulating Hormone (TSH) 1.37 uIU/mL 0.358-3.74 [facility] Platelets bldOrdered By: Dr. Lund on 02-22-2022 Platelets (Bld) [#/Vol] 259 10*3/uL 150-450 [facility] Serum or plasma albumin josh urement (mass/volume)Ordered By: Dr. Lund on 02-22-2022 Albumin [Mass/Vol] 2.9 g/dL 3.2-5.0 [facility] Serum or plasma albumin/glob ulin mass ratioOrdered By: Dr. Lund on 02-22-2022 Albumin/Globulin [Mass ratio] 1.0 {ratio} 0.9-2.4 [facility] Serum or plasma calcium josh urement (mass/volume)Ordered By: Dr. Lund on 02-22-2022 Calcium [Mass/Vol] 8.0 mg/dL 8.5-10.1 [facility] Serum or plasma cholesterol in HDL measurement (mass/volume)Ordered By: Dr. Lund on 02-22-2022 Cholesterol in HDL [Mass/Vol] 42 mg/dL >40 [facility] Comment on above: The drugs N-Acetylcy steine and Metamizole may falsely depress this assay. Reference Range HDL <40 mg/dL Low HDL Cholesterol HDL >or= 60 mg/dL High HDL Cholesterol Serum or plasma cholesterol in VLDL measurement (mass/volume)Ordered By: Dr. Lund on 02-22-2022 Cholesterol in VLDL [Mass/Vol] 8 mg/dL 5-40 [facility] Serum or plasma creatinine m easurement (mass/volume)Ordered By: Dr. Lund on 02-22-2022 Creatinine [Mass/Vol] 0.75 mg/dL 0.70-1.30 [facility] Comment on above: The validity of the calculated GFR & GFRAA in patients over 70 years has not been determined. Clinical correlation is essential. Serum or plasma low density lipoprotein (LDL) cholesterol measurement (mass/volume)Ordered By: Dr. Lund on 02-22-2022 Cholesterol in LDL [Mass/Vol] 24 mg/dL 0-130 [facility] Serum or plasma urea nitroge n measurement (mass/volume)Ordered By: Dr. Lund on 02-22-2022 Urea nitrogen [Mass/Vol] 14 mg/dL 7-18 [facility] Thin prep Papanicolaou smear with manual screeningOrdered By: Dr. Lund on 02-22-2022 Thin prep Papanicolaou smear with manual screening 12 U/L 15-37 [facility] Thin prep Papanicolaou smear with manual screening 4 5-15 [facility] Absolute lymphocyte counton 02-21-2022 Lymphocytes Auto (Unsp spec) [#/Vol] 2.04 10*3/uL 0.83-4.51 [facility] Work Phone: Basophil percentageOrdered B y: Dr. Lund on 02-21-2022 Basophil percentage 2.9 mg/dL 2.5-4.9 [facility] Basophil percentageon 2021 Basophils/100 WBC (Bld) 0.6 % 0-1 [facility] Work Phone: Bilirubin [Mass/Vol] 1.50 mg/dL 0.20-1.00 [facility] Work Phone: Comment on above: For patients on eltr ombopag therapy, use of Dimension [place] TBIL is not recommended. Chloride [Moles/Vol] 107 mmol/L 98-107 [facility] Work Phone: Eosinophils/100 WBC (Bld) 5.1 % 0-5 [facility] Work Phone: Glucose [Mass/Vol] 110 mg/dL 74-106 [facility] Work Phone: Comment on above: Fasting Glucose resu lt from 100 to 125 mg/dL suggests IMPAIRED HOMEOSTASIS per A.D.A. criteria. Neutrophils (Bld) [#/Vol] 2.9 10*3/uL 2.0-7.7 [facility] Work Phone: Neutrophils/100 WBC (Bld) 46.2 % 47-70 [facility] Work Phone: Potassium [Moles/Vol] 3.4 mmol/L 3.5-5.1 [facility] Work Phone: Protein [Mass/Vol] 7.1 g/dL 6.4-8.2 [facility] Work Phone: Sodium [Moles/Vol] 142 mmol/L 136-145 [facility] Work Phone: WBC (Bld) [#/Vol] 6.3 10*3/uL 4.4-11.0 [facility] Work Phone: Blood erythrocytes count (nu mber/volume)on 02-21-2022 RBC (Bld) [#/Vol] 4.06 10*6/uL 4.6-6.2 [facility] Work Phone: Blood hemoglobin measurement (mass/volume)on 02-21-2022 Hemoglobin (Bld) [Mass/Vol] 11.5 g/dL 13.0-16.5 [facility] Work Phone: Blood lymphocytes/100 leukoc yteson 02-21-2022 Lymphocytes/100 WBC (Bld) 32.6 % 19-41 [facility] Work Phone: Blood monocytes/100 leukocyt eson 02-21-2022 Monocytes/100 WBC (Bld) 15.2 % 0-10 [facility] Work Phone: Blood platelet mean volumeon 02-21-2022 Platelet mean volume (Bld) [Entitic vol] 8.8 fL 6.2-12.0 [facility] Work Phone: [phone] Determination of erythrocyte mean corpuscular volume (MCV)on 02-21-2022 MCV (RBC) [Entitic vol] 89.4 fL 80-94 [facility] Work Phone: [phone] Hematocrit Auto (Bld) [Volum e fraction]on 02-21-2022 Hematocrit (Bld) [Volume fraction] 36.3 % 40-54 [facility] Work Phone: [phone] INR in Blood by Coagulation assayOrdered By: Dr. Ventura on 02-21-2022 INR Coag (Bld) [Relative time] 1.3 {INR} [facility] Laboratory - Chemistry and C hemistry - challengeOrdered By: Dr. Lund on 02-21-2022 Magnesium [Mass/Vol] 2.0 mg/dL 1.6-2.6 [facility] Laboratory - Chemistry and C hemistry - challengeon 02-21-2022 ALP [Catalytic activity/Vol] 50 U/L 45-117 [facility] Work Phone: ALT [Catalytic activity/Vol] 17 U/L 16-61 [facility] Work Phone: [phone] CO2 [Moles/Vol] 26.0 mmol/L 21.0-32.0 [facility] Work Phone: [phone] Globulin (S) [Mass/Vol] 3.6 g/dL 2.2-4.2 [facility] Work Phone: Urea nitrogen/Creatinine [Mass ratio] 19.0 mg/mg 10-20 [facility] Work Phone: [phone] Laboratory - Chemistry and C hemistry - challengeOrdered By: Dr. Ventura on 02-21-2022 Lipase [Catalytic activity/Vol] 122 U/L 73-393 [facility] Natriuretic peptide B (Bld) [Mass/Vol] 102.9 pg/mL 0-100 [facility] Laboratory - CoagulationOrde red By: Dr. Ventura on 02-21-2022 PT Coag (PPP) [Time] 15.5 s 11.7-14.9 [facility] Laboratory - Hematology and Cell countson 02-21-2022 Erythrocyte distribution width (RBC) [Entitic vol] 52.9 fL 35.1-43.9 [facility] Work Phone: [phone] Erythrocyte distribution width (RBC) [Ratio] 15.9 % 11.6-14.6 [facility] Work Phone: [phone] Immature granulocytes/100 WBC (Bld) 0.300 % 0.0-0.9 [facility] Work Phone: [phone] Comment on above: IG% - Immature Granu locytes (promyelocytes, myelocytes and metamyelocytes) > 1% indicates that a LEFT SHIFT is Present. MCH (RBC) [Entitic mass] 28.3 pg 27.0-32.0 [facility] Work Phone: [phone] Nucleated RBC/100 WBC (Bld) [Ratio] 0 % 0-5 [facility] Work Phone: [phone] MCHC Auto (RBC) [Mass/Vol]on 02-21-2022 MCHC (RBC) [Mass/Vol] 31.7 g/dL 32-36 [facility] Work Phone: [phone] No Panel InformationOrdered By: Dr. Lund on 02-21-2022 Troponin I High Sensitivity 66 pg/mL 3.0-78.0 [facility] Comment on above: Please Note: New Saloni t Units and Gender Specific Reference Ranges. For more information see Policy Stat Procedure [place] High Sensitivity Troponin (TNIH) and attachments. No Panel Informationon 02-21 Troponin I High Sensitivity 38 pg/mL 3.0-78.0 [facility] Work Phone: Comment on above: Please Note: New Saloni t Units and Gender Specific Reference Ranges. For more information see Policy Stat Procedure [place] High Sensitivity Troponin (TNIH) and attachments. Estimated Creatinine Clearance Calc 60.17 ml/min [facility] Work Phone: Estimated GFR (MDRD) Amer 104 mL/min >60 [facility] Work Phone: Comment on above: GFR Calc Estimated GFR (MDRD) Non-Af Amer 86 mL/min >60 [facility] Work Phone: Comment on above: Non- GFR Calc Thyroid Stimulating Hormone (TSH) 1.17 uIU/mL 0.358-3.74 [facility] Work Phone: Platelets bldon 02-21-2022 Platelets (Bld) [#/Vol] 306 10*3/uL 150-450 [facility] Work Phone: Serum or plasma albumin josh urement (mass/volume)on 02-21-2022 Albumin [Mass/Vol] 3.5 g/dL 3.2-5.0 [facility] Work Phone: [phone] Serum or plasma albumin/glob ulin mass ratioon 02-21-2022 Albumin/Globulin [Mass ratio] 1.0 {ratio} 0.9-2.4 [facility] Work Phone: [phone] Serum or plasma calcium josh urement (mass/volume)on 02-21-2022 Calcium [Mass/Vol] 8.4 mg/dL 8.5-10.1 [facility] Work Phone: [phone] Serum or plasma creatinine m easurement (mass/volume)on 02-21-2022 Creatinine [Mass/Vol] 0.90 mg/dL 0.70-1.30 [facility] Work Phone: Comment on above: The validity of the calculated GFR & GFRAA in patients over 70 years has not been determined. Clinical correlation is essential. Serum or plasma urea nitroge n measurement (mass/volume)on 02-21-2022 Urea nitrogen [Mass/Vol] 17 mg/dL 7-18 [facility] Work Phone: Thin prep Papanicolaou smear with manual screeningon 02-21-2022 Thin prep Papanicolaou smear with manual screening 16 U/L 15-37 [facility] Work Phone: Thin prep Papanicolaou smear with manual screening 9 5-15 [facility] Work Phone: Laboratory - Microbiology an d Antimicrobial susceptibilityOrdered By: Dr. Mccullough on 02-05-2022 SARS-CoV-2 (COVID-19) RNA MADHAV+probe Ql (Unsp spec) Detected Not Detect [facility] Comment on above: Normal Reference Ran ge: Not DetectedMethod:(RT-PCR) real-time reverse transcriptase PCRLuminex LUIS CARLOS Instrument*The Food and Drug Administration (FDA) has issued an Emergency Use Authorization (EAU) for the LUIS CARLOS SARS-CoV-2 Assay for the rapid detection of the virus that causes COVID-19. This test has been validated, but the FDAs independent review of this validation is pending.*Negative results do not preclude infection and should not be used as the sole basis for treatment or patient management. Optimum specimen types and timing for peak viral levels during infections caused by SARS-CoV-2 have not been determined. Collection of multiple specimens from the same patient may be necessary to detect the virus. The possibility of a false negative result should be considered if the patient has clinical presentation or has had recent exposure. No Panel InformationOrdered By: Dr. Mccullough on 02-05-2022 Influenza Types A,B Direct FA (ROGER) [facility] RSV Ag EIAOrdered By: Dr. Doug cyr on 02-05-2022 RSV Ag Immune stain Ql (Tiss) [facility] Lab Report: Lipid Profileon 11-09-2016 Cholesterol 98 mg/dL Invalid Interpretation Code 200 [facility] Work Phone: HDL Cholesterol 48 mg/dL Invalid Interpretation Code [facility] Work Phone: LDL Cholesterol 41 mg/dL Invalid Interpretation Code 0-130 [facility] Work Phone: [phone] Triglyceride 46 mg/dL Invalid Interpretation Code [facility] Work Phone: [phone] very low density lipoproteins 9 mg/dL Invalid Interpretation Code 5-40 [facility] Work Phone: [phone] Lab Report: Liver Profileon 11-09-2016 Alanine aminotransferase (ALT) 13 U/L Invalid Interpretation Code 12-78 [facility] Work Phone: [phone] Albumin 3.3 g/dL Low 3.4-5.0 [facility] Work Phone: [phone] Alkaline phosphatase (ALP) 73 U/L Invalid Interpretation Code 45-117 [facility] Work Phone: [phone] enzyme act/vol (Bld) 73 U/L 45-117 [facility] Work Phone: [phone] Aspartate aminotransferase (AST) 14 U/L Low 15-37 [facility] Work Phone: [phone] Bilirubin (direct) 0.31 mg/dL High 0.00-0.30 [facility] Work Phone: [phone] Bilirubin (total) 1.30 mg/dL High 0.20-1.00 [facility] Work Phone: [phone] Globulin 4.0 g/dL High 2.3-3.5 [facility] Work Phone: [phone] Globulin mass conc (S) 4.0 g/dL High 2.3-3.5 [facility] Work Phone: [phone] Protein 7.3 g/dL Invalid Interpretation Code 6.4-8.2 [facility] Work Phone: [phone] Office Visiton 11-05-2016 Documentation of current medications (procedure) Done Invalid Interpretation Code [facility] Work Phone: [phone] Protein mass conc Done [facility] Work Phone: [phone] 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 Marcelo Mccullough MD Work Phone: [facility] 10-18-2024 10:17-0400 Body weight 66.[address] Marcelo Mccullough MD Work Phone: [facility] 10-18-2024 10:17-0400 Diastolic blood pressure 68 mm[Hg] Dr. Marcelo Mccullough MD Work Phone: [phone] [place] [address] 10-18-2024 10:17-0400 Heart rate 66 /min Dr. Marcelo Mccullough MD Work Phone: [phone] [address] 10-18-2024 10:17-0400 Respiratory rate 16 /min Dr. Marcelo Mccullough MD Work Phone: [facility] 10-18-2024 10:17-0400 SaO2% (BldA) [Mass fraction] 94 % Dr. Marcelo Mccullough MD Work Phone: [facility] 10-18-2024 10:17-0400 Systolic blood pressure 128 mm[Hg] Dr. Marcelo Mccullough MD Work Phone: [facility] 08-03-2024 08:32-0400 Body height 157.[address] Marcelo Mccullough MD Work Phone: [facility] 08-03-2024 08:32-0400 Body mass index (BMI) [Ratio] 26.9 kg/m2 Dr. Marcelo Mccullough MD Work Phone: [facility] 08-03-2024 08:32-0400 Body weight 66.[address] Marcelo Mccullough MD Work Phone: [facility] 08-03-2024 08:32-0400 Diastolic blood pressure 65 mm[Hg] Dr. Marcelo Mccullough MD Work Phone: [facility] 08-03-2024 08:32-0400 Heart rate 66 /min Dr. Marcelo Mccullough MD Work Phone: [phone] [place] [address] 08-03-2024 08:32-0400 Respiratory rate 16 /min Dr. Marcelo Mccullough MD Work Phone: [phone] [place] [address] 08-03-2024 08:32-0400 Systolic blood pressure 110 mm[Hg] Dr. Marcelo Mccullough MD Work Phone: [phone] [place] [address] 07-20-2024 16:31-0400 Body temperature 98.4 [degF] Dr. Marcelo Mccullough MD Work Phone: [phone] [place] [address] 07-20-2024 16:31-0400 Diastolic blood pressure 56 mm[Hg] Dr. Marcelo Mccullough MD Work Phone: [phone] [place] [address] 07-20-2024 16:31-0400 Heart rate 66 /min Dr. Marcelo Mccullough MD Work Phone: [phone] [place] [address] 07-20-2024 16:31-0400 SaO2% (BldA) [Mass fraction] 99 % Dr. Marcelo Mccullough MD Work Phone: [phone] [address] 07-20-2024 16:31-0400 Systolic blood pressure 100 mm[Hg] Dr. Marcelo Mccullough MD Work Phone: [phone] [address] 07-19-2024 09:28-0400 Body temperature 98.4 [degF] Dr. Marcelo Mccullough MD Work Phone: [phone] [place] [address] 07-19-2024 09:28-0400 Body weight 68.[address] Marcelo Mccullough MD Work Phone: [phone] [place] [address] 07-19-2024 09:28-0400 Diastolic blood pressure 51 mm[Hg] Dr. Marcelo Mccullough MD Work Phone: [phone] [place] [address] 07-19-2024 09:28-0400 Heart rate 70 /min Dr. Marcelo Mccullough MD Work Phone: [phone] [place] [address] 07-19-2024 09:28-0400 Respiratory rate 17 /min Dr. Marcelo Mccullough MD Work Phone: [facility] 07-19-2024 09:28-0400 SaO2% (BldA) [Mass fraction] 92 % Dr. Marcelo Mccullough MD Work Phone: [facility] 07-19-2024 09:28-0400 Systolic blood pressure 104 mm[Hg] Dr. Marcelo Mccullough MD Work Phone: [facility] 07-06-2024 17:03-0400 Body temperature 98.4 [degF] Dr. Marcelo Mccullough MD Work Phone: [phone] [place] [address] 07-06-2024 17:03-0400 Diastolic blood pressure 98 mm[Hg] Dr. Marcelo Mccullough MD Work Phone: [phone] [place] [address] 07-06-2024 17:03-0400 Heart rate 88 /min Dr. Marcelo Mccullough MD Work Phone: [facility] 07-06-2024 17:03-0400 Respiratory rate 18 /min Dr. Marcelo Mccullough MD Work Phone: [facility] 07-06-2024 17:03-0400 SaO2% (BldA) [Mass fraction] 97 % Dr. Marcelo Mccullough MD Work Phone: [facility] 07-06-2024 17:03-0400 Systolic blood pressure 155 mm[Hg] Dr. Marcelo Mccullough MD Work Phone: [facility] 07-06-2024 14:06-0400 Body height 157.[address] Marcelo Mccullough MD Work Phone: [facility] 05-15-2024 09:44-0500 Body mass index (BMI) [Ratio] 27.6 kg/m2 Dr. Marcelo Mccullough MD Work Phone: [facility] 05-15-2024 09:44-0500 Body weight 68.[address] Marcelo Mccullough MD Work Phone: [phone] [place] [address] 05-15-2024 09:44-0500 Diastolic blood pressure 56 mm[Hg] Dr. Marcelo Mccullough MD Work Phone: [facility] 05-15-2024 09:44-0500 Heart rate 55 /min Dr. Marcelo Mccullough MD Work Phone: [facility] 05-15-2024 09:44-0500 Respiratory rate 16 /min Dr. Marcelo Mccullough MD Work Phone: [facility] 05-15-2024 09:44-0500 Systolic blood pressure 142 mm[Hg] Dr. Marcelo Mccullough MD Work Phone: [facility] 04-19-2024 14:27-0500 Body height 157.5 cm Andrew Wadsworth MD Work Phone: [facility] 04-19-2024 14:27-0500 Body mass index (BMI) [Ratio] 27.44 kg/m2 Andrew Wadsworth MD Work Phone: [facility] 04-19-2024 14:27-0500 Body weight 68.04 kg Andrew Wadsworth MD Work Phone: [facility] 04-19-2024 14:27-0500 Diastolic blood pressure 72 mm[Hg] Andrew Wadsworth MD Work Phone: [facility] 04-19-2024 14:27-0500 Heart rate 55 /min Andrew Wadsworth MD Work Phone: [facility] 04-19-2024 14:27-0500 SaO2% (BldA) [Mass fraction] 96 % Andrew Wadsworth MD Work Phone: [facility] 04-19-2024 14:27-0500 Systolic blood pressure 158 mm[Hg] Andrew Wadsworth MD Work Phone: [facility] 03-17-2024 10:29-0500 Body height 157.[address] Marcelo Mccullough MD Work Phone: [facility] 03-17-2024 10:29-0500 Body mass index (BMI) [Ratio] 27.4 kg/m2 Dr. Marcelo Mccullough MD Work Phone: [facility] 03-17-2024 10:29-0500 Body weight 68.[address] Marcelo Mccullough MD Work Phone: [facility] 03-17-2024 10:29-0500 Diastolic blood pressure 54 mm[Hg] Dr. Marcelo Mccullough MD Work Phone: [facility] 03-17-2024 10:29-0500 Heart rate 59 /min Dr. Marcelo Mccullough MD Work Phone: [facility] 03-17-2024 10:29-0500 Respiratory rate 16 /min Dr. Marcelo Mcculolugh MD Work Phone: [facility] 03-17-2024 10:29-0500 SaO2% (BldA) [Mass fraction] 92 % Dr. Marcelo Mccullough MD Work Phone: [facility] 03-17-2024 10:29-0500 Systolic blood pressure 126 mm[Hg] Dr. Marcelo Mccullough MD Work Phone: [facility] 11-12-2023 09:33-0400 Diastolic Blood Pressure Non-Invasive 70 mm[Hg] DR ERICK BELTRAN MD [facility] 11-12-2023 09:33-0400 Heart rate 65 /min DR ERICK BELTRAN MD [facility] 11-12-2023 09:33-0400 Respiratory rate 16 /min DR ERICK BELTRAN MD [facility] 11-12-2023 09:33-0400 Systolic Blood Pressure Non-Invasive 116 mm[Hg] DR ERICK BELTRAN MD [facility] 11-12-2023 09:20-0400 Diastolic Blood Pressure Non-Invasive 65 mm[Hg] DR ERICK BELTRAN MD [facility] 11-12-2023 09:20-0400 Heart rate 71 /min DR ERICK BELTRAN MD [facility] 11-12-2023 09:20-0400 Respiratory rate 14 /min DR ERICK BELTRAN MD [facility] 11-12-2023 09:20-0400 Systolic Blood Pressure Non-Invasive 112 mm[Hg] DR ERICK BELTRAN MD [facility] 11-12-2023 09:10-0400 Body temperature 97.88 [degF] DR ERICK BELTRAN MD [facility] 11-12-2023 09:10-0400 Diastolic Blood Pressure Non-Invasive 62 mm[Hg] DR ERICK BELTRAN MD [address] [place] [address] 11-12-2023 09:10-0400 Heart rate 64 /min DR ERICK BELTRAN MD [facility] 11-12-2023 09:10-0400 Respiratory rate 15 /min DR ERICK BELTRAN MD [facility] 11-12-2023 09:10-0400 Systolic Blood Pressure Non-Invasive 116 mm[Hg] DR ERICK BELTRAN MD [facility] 11-12-2023 09:05-0400 Respiratory Rate - Anes 13 br/min DR ERICK BELTRAN MD [facility] 11-12-2023 09:00-0400 Respiratory Rate - Anes 12 br/min DR ERICK BELTRAN MD [facility] 11-12-2023 08:55-0400 Respiratory Rate - Anes 0 br/min DR ERICK BELTRAN MD [address] [place] [address] 11-12-2023 07:59-0400 Body height 162.[address] ERICK BELTRAN MD [facility] 11-12-2023 07:59-0400 Body temperature 97.7 [degF] DR ERICK BELTRAN MD [facility] 11-12-2023 07:59-0400 Body weight [address] ERICK BELTRAN MD [facility] 11-12-2023 07:59-0400 Body weight 26.1 kg/m2 DR ERICK BELTRAN MD [facility] 11-12-2023 07:59-0400 Heart rate 82 /min DR ERICK BELTRAN MD [facility] 03-24-2023 10:37-0500 Body height 157.[address] Marcelo Mccullough Work Phone: [facility] 03-24-2023 10:37-0500 Body mass index (BMI) [Ratio] 28.3 kg/m2 Dr. Marcelo Mccullough Work Phone: [facility] 03-24-2023 10:37-0500 Body weight 70.[address] Marcelo Mccullough Work Phone: [facility] 03-24-2023 10:37-0500 Diastolic blood pressure 77 mm[Hg] Dr. Marcelo Mccullough Work Phone: [facility] 03-24-2023 10:37-0500 Heart rate 69 /min Dr. Marcelo Mccullough Work Phone: [facility] 03-24-2023 10:37-0500 Respiratory rate 18 /min Dr. Marcelo Mccullough Work Phone: [facility] 03-24-2023 10:37-0500 SaO2% (BldA) [Mass fraction] 98 % Dr. Marcelo Mccullough Work Phone: [facility] 03-24-2023 10:37-0500 Systolic blood pressure 139 mm[Hg] Dr. Marcelo Mccullough Work Phone: [facility] 03-16-2023 13:11-0500 Respiratory rate 16 /min [facility] 03-16-2023 13:11-0500 SaO2% (BldA) [Mass fraction] 94 % [facility] 03-16-2023 11:08-0500 Diastolic blood pressure 78 mm[Hg] [facility] 03-16-2023 11:08-0500 Heart rate 57 /min [facility] 03-16-2023 11:08-0500 Systolic blood pressure 164 mm[Hg] [facility] 03-16-2023 07:55-0500 Body height 157.48 cm [facility] 03-16-2023 07:55-0500 Body mass index (BMI) [Ratio] 29.1 kg/m2 [facility] 03-16-2023 07:55-0500 Body temperature 98.3 [degF] [facility] 03-16-2023 07:55-0500 Body weight 72.3 kg [facility] 02-03-2023 08:19-0500 Diastolic blood pressure 62 mm[Hg] Dr. Marcelo Mccullough Work Phone: [facility] 02-03-2023 08:19-0500 Heart rate 55 /min Dr. Marcelo Mccullough Work Phone: [facility] 02-03-2023 08:19-0500 Respiratory rate 16 /min Dr. Marcelo Mccullough Work Phone: [facility] 02-03-2023 08:19-0500 Systolic blood pressure 112 mm[Hg] Dr. Marcelo Mccullough Work Phone: [facility] 02-03-2023 07:53-0500 Body height 165.[address] Marcelo Mccullough Work Phone: [facility] 02-03-2023 07:53-0500 Body temperature 97.2 [degF] Dr. Marcelo Mccullough Work Phone: [facility] 02-03-2023 07:53-0500 SaO2% (BldA) [Mass fraction] 97 % Dr. Marcelo Mccullough Work Phone: [facility] 01-18-2023 06:00-0400 Diastolic blood pressure 87 mm[Hg] Dr. Marcelo Mccullough Work Phone: [facility] 01-18-2023 06:00-0400 Heart rate 57 /min Dr. Marcelo Mccullough Work Phone: 3(311)451-860707 [place] [address] 01-18-2023 06:00-0400 Respiratory rate 16 /min Dr. Marcelo Mccullough Work Phone: 7(367)464-882312 [address] 01-18-2023 06:00-0400 SaO2% (BldA) [Mass fraction] 97 % Dr. Marcelo Mccullough Work Phone: 6(466)396-038707 [place] [address] 01-18-2023 06:00-0400 Systolic blood pressure 135 mm[Hg] Dr. Marcelo Mccullough Work Phone: 4(393)077-526307 [place] [address] 01-18-2023 03:35-0400 Body height 165.[address] Marcelo Mccullough Work Phone: 6(102)336-418182 [place] [address] 01-18-2023 03:35-0400 Body mass index (BMI) [Ratio] 27.3 kg/m2 Dr. Marcelo Mccullough Work Phone: 4(686)717-983212 [address] 01-18-2023 03:35-0400 Body temperature 97.4 [degF] Dr. Marcelo Mccullough Work Phone: 3(465)930-773807 [place] [address] 01-18-2023 03:35-0400 Body weight 74.[address] Marcelo Mccullough Work Phone: [facility] 11-12-2022 12:40-0400 Body temperature 98 [degF] Dr. Marcelo Mccullough Work Phone: 9(183)745-201407 [place] [address] 11-12-2022 12:40-0400 Diastolic blood pressure 62 mm[Hg] Dr. Marcelo Mccullough Work Phone: 5(951)746-599307 [place] [address] 11-12-2022 12:40-0400 Heart rate 76 /min Dr. Marcelo Mccullough Work Phone: [facility] 11-12-2022 12:40-0400 Respiratory rate 18 /min Dr. Marcelo Mccullough Work Phone: [facility] 11-12-2022 12:40-0400 SaO2% (BldA) [Mass fraction] 98 % Dr. Marcelo Mccullough Work Phone: [facility] 11-12-2022 12:40-0400 Systolic blood pressure 112 mm[Hg] Dr. Marcelo Mccullough Work Phone: [facility] 11-12-2022 09:00-0400 Body temperature 97.6 [degF] Dr. Marcelo Mccullough Work Phone: 2(923)134-934712 [address] 11-12-2022 09:00-0400 Diastolic blood pressure 57 mm[Hg] Dr. Marcelo Mccullough Work Phone: 5(448)631-875512 [address] 11-12-2022 09:00-0400 Heart rate 80 /min Dr. Marcelo Mccullough Work Phone: [facility] 11-12-2022 09:00-0400 Respiratory rate 16 /min Dr. Marcelo Mccullough Work Phone: [facility] 11-12-2022 09:00-0400 SaO2% (BldA) [Mass fraction] 97 % Dr. Marcelo Mccullough Work Phone: 7(533)126-986212 [address] 11-12-2022 09:00-0400 Systolic blood pressure 110 mm[Hg] Dr. Marcelo Mccullough Work Phone: [facility] 11-11-2022 06:16-0400 Body height 165.[address] Marcelo Mccullough Work Phone: 4(035)961-743012 [address] 11-11-2022 06:16-0400 Body mass index (BMI) [Ratio] 26.1 kg/m2 Dr. Marcelo Mccullough Work Phone: 5(403)069-697207 [place] [address] 11-11-2022 06:16-0400 Body weight 71.[address] Marcelo Mccullough Work Phone: 2(422)060-613907 [place] [address] 11-11-2022 06:08-0400 Body temperature 97.8 [degF] [facility] 11-11-2022 06:08-0400 Diastolic blood pressure 76 mm[Hg] [facility] 11-11-2022 06:08-0400 Heart rate 121 /min [facility] 11-11-2022 06:08-0400 Respiratory rate 18 /min [facility] 11-11-2022 06:08-0400 SaO2% (BldA) [Mass fraction] 99 % [facility] 11-11-2022 06:08-0400 Systolic blood pressure 120 mm[Hg] [facility] 11-11-2022 03:29-0400 Body height 162.56 cm [facility] 11-11-2022 03:29-0400 Body mass index (BMI) [Ratio] 27.6 kg/m2 [facility] 11-11-2022 03:29-0400 Body weight 73.1 kg [facility] 11-06-2022 21:30-0400 Body height 165.1 cm [facility] 11-06-2022 21:30-0400 Body mass index (BMI) [Ratio] 26.2 kg/m2 [facility] 11-06-2022 21:30-0400 Body temperature 97.8 [degF] [facility] 11-06-2022 21:30-0400 Body weight 71.66 kg [facility] 11-06-2022 21:30-0400 Diastolic blood pressure 72 mm[Hg] [facility] 11-06-2022 21:30-0400 Heart rate 69 /min [facility] 11-06-2022 21:30-0400 Respiratory rate 18 /min [facility] 11-06-2022 21:30-0400 SaO2% (BldA) [Mass fraction] 98 % [facility] 11-06-2022 21:30-0400 Systolic blood pressure 173 mm[Hg] [facility] 10-26-2022 10:55-0400 Diastolic blood pressure 104 mm[Hg] Dr. Marcelo Mccullough Work Phone: [facility] 10-26-2022 10:55-0400 Heart rate 71 /min Dr. Marcelo Mccullough Work Phone: [facility] 10-26-2022 10:55-0400 Respiratory rate 18 /min Dr. Marcelo Mccullough Work Phone: [facility] 10-26-2022 10:55-0400 SaO2% (BldA) [Mass fraction] 96 % Dr. Marcelo Mccullough Work Phone: [facility] 10-26-2022 10:55-0400 Systolic blood pressure 134 mm[Hg] Dr. Marcelo Mccullough Work Phone: [facility] 10-26-2022 08:56-0400 Body height 165.[address] Marcelo Mccullough Work Phone: [facility] 10-26-2022 08:56-0400 Body temperature 96 [degF] Dr. Marcelo Mccullough Work Phone: [facility] 06-15-2022 10:47-0400 Diastolic Blood Pressure Non-Invasive [address] ERICK BELTRAN MD [facility] 06-15-2022 10:47-0400 Heart rate 66 /min DR ERICK BELTRAN MD [facility] 06-15-2022 10:47-0400 Systolic Blood Pressure Non-Invasive [address] ERICK BELTRAN MD [facility] 06-15-2022 10:43-0400 Diastolic Blood Pressure Non-Invasive [address] ERICK BELTRAN MD [facility] 06-15-2022 10:43-0400 Heart rate 66 /min DR ERICK BELTRAN MD [facility] 06-15-2022 10:43-0400 Systolic Blood Pressure Non-Invasive [address] ERICK BELTRAN MD [facility] 06-15-2022 10:39-0400 Diastolic Blood Pressure Non-Invasive [address] ERICK BELTRAN MD [facility] 06-15-2022 10:39-0400 Heart rate 62 /min DR ERICK BELTRAN MD [facility] 06-15-2022 10:39-0400 Systolic Blood Pressure Non-Invasive [address] ERICK BELTRAN MD [facility] 06-15-2022 10:20-0400 Respiratory Rate - Anes 28 br/min DR ERICK BELTRAN MD [facility] 06-15-2022 10:15-0400 Respiratory Rate - Anes 15 br/min DR ERICK BELTRAN MD [facility] 06-15-2022 10:10-0400 Respiratory Rate - Anes 17 br/min DR ERICK BELTRAN MD [facility] 06-15-2022 09:46-0400 Body height 162.[address] ERICK BELTRAN MD [facility] 06-15-2022 09:46-0400 Body weight 70.[address] ERICK BELTRAN MD [facility] 06-15-2022 09:46-0400 Body weight 26.67 kg/m2 DR ERICK BELTRAN MD [facility] 06-15-2022 09:43-0400 Heart rate 59 /min DR ERICK BELTRAN MD [facility] 06-15-2022 09:43-0400 Respiratory rate 16 /min DR ERICK BELTRAN MD [facility] 06-08-2022 08:24-0400 Body height 172.[address] Marcelo Mccullough Work Phone: [facility] 06-08-2022 08:24-0400 Body mass index (BMI) [Ratio] 23.6 kg/m2 Dr. Marcelo Mccullough Work Phone: [facility] 06-08-2022 08:24-0400 Body weight 70.[address] Marcelo Mccullough Work Phone: 5(472)040-701707 [place] [address] 06-08-2022 08:24-0400 Diastolic blood pressure 68 mm[Hg] Dr. Marcelo Mccullough Work Phone: 1(956)196-621682 [place] [address] 06-08-2022 08:24-0400 Heart rate 74 /min Dr. Marcelo Mccullough Work Phone: 5(143)730-738482 [place] [address] 06-08-2022 08:24-0400 Respiratory rate 18 /min Dr. Marcelo Mccullough Work Phone: 1(370)544-982182 [place] [address] 06-08-2022 08:24-0400 SaO2% (BldA) [Mass fraction] 96 % Dr. Marcelo Mccullough Work Phone: 1(273)080-367407 [place] [address] 06-08-2022 08:24-0400 Systolic blood pressure 125 mm[Hg] Dr. Marcelo Mccullough Work Phone: 6(704)067-031282 [place] [address] 03-06-2022 08:44-0500 Body height 172.[address] Marcelo Mccullough Work Phone: 3(776)693-139982 [place] [address] 03-06-2022 08:44-0500 Body mass index (BMI) [Ratio] 24.3 kg/m2 Dr. Marcelo Mccullough Work Phone: 0(042)737-921307 [place] [address] 03-06-2022 08:44-0500 Body weight 72.[address] Marcelo Mccullough Work Phone: 6(295)698-889707 [place] [address] 02-22-2022 12:22-0500 Body temperature 97.8 [degF] Dr. Marcelo Mccullough Work Phone: 3(651)684-475807 [place] [address] 02-22-2022 12:22-0500 Diastolic blood pressure 70 mm[Hg] Dr. Marcelo Mccullough Work Phone: [facility] 02-22-2022 12:22-0500 Heart rate 58 /min Dr. Marcelo Mccullough Work Phone: [facility] 02-22-2022 12:22-0500 Respiratory rate 14 /min Dr. Marcelo Mccullough Work Phone: [facility] 02-22-2022 12:22-0500 SaO2% (BldA) [Mass fraction] 96 % Dr. Marcelo Mccullough Work Phone: [facility] 02-22-2022 12:22-0500 Systolic blood pressure 135 mm[Hg] Dr. Marcelo Mccullough Work Phone: [facility] 02-22-2022 06:00-0500 Body weight 70.[address] Marcelo Mccullough Work Phone: [facility] 02-21-2022 15:31-0500 Inhaled oxygen flow rate 2 L/min Dr. Marcelo Mccullough Work Phone: [facility] 02-21-2022 09:08-0500 Body height 172.[address] Marcelo Mccullough Work Phone: [facility] Work Phone: 02-21-2022 09:08-0500 Body mass index (BMI) [Ratio] 23.3 kg/m2 Dr. Marcelo Mccullough Work Phone: [facility] 02-21-2022 08:28-0500 Body temperature 97.8 [degF] [facility] Work Phone: 02-21-2022 08:28-0500 Diastolic blood pressure 84 mm[Hg] [facility] Work Phone: 02-21-2022 08:28-0500 Heart rate 110 /min [facility] Work Phone: 02-21-2022 08:28-0500 Respiratory rate 18 /min [facility] Work Phone: 02-21-2022 08:28-0500 SaO2% (BldA) [Mass fraction] 98 % [facility] Work Phone: 02-21-2022 08:28-0500 Systolic blood pressure 99 mm[Hg] [facility] Work Phone: 02-21-2022 04:53-0500 Body height 172.72 cm [facility] Work Phone: 02-21-2022 04:53-0500 Body mass index (BMI) [Ratio] 24.4 kg/m2 [facility] Work Phone: 02-21-2022 04:53-0500 Body weight 72.8 kg [facility] Work Phone: 09-08-2020 12:28-0400 Body height 172.7 cm Delfin Conner [employer] Work Phone: [facility] 09-08-2020 12:28-0400 Body mass index (BMI) [Ratio] 27.11 kg/m2 Delfin Conner [employer] Work Phone: [facility] 09-08-2020 12:28-0400 Body weight 80.88 kg Delfin Conner [employer] Work Phone: [facility] 09-08-2020 12:27-0400 Body temperature 98.49 [degF] Delfin Conner [employer] Work Phone: [facility] 09-08-2020 12:27-0400 Diastolic blood pressure 75 mm[Hg] Delfin Conner [employer] Work Phone: [facility] 09-08-2020 12:27-0400 Heart rate 74 /min Delfin Conner [employer] Work Phone: [facility] 09-08-2020 12:27-0400 Respiratory rate 18 /min Delfin Conner [employer] Work Phone: [facility] 09-08-2020 12:27-0400 SaO2% (BldA) [Mass fraction] 94 % Delfin Conner [employer] Work Phone: [facility] 09-08-2020 12:27-0400 Systolic blood pressure 145 mm[Hg] Delfin Conner DO Work Phone: [facility] 11-05-2016 12:58-0400 BMI (Body Mass Index) 26.3 kg/m2 Temo Cerna MD [facility] Work Phone: 11-05-2016 12:58-0400 BP Diastolic 60 mm[Hg] Temo Cerna MD [facility] Work Phone: 11-05-2016 12:58-0400 BP Systolic 118 mm[Hg] Temo Cerna MD [facility] Work Phone: 11-05-2016 12:58-0400 Height 172.72 cm Temo Cerna MD [facility] Work Phone: 11-05-2016 12:58-0400 Pulse (Heart Rate) 74 /min Temo Cerna [facility] Work Phone: 11-05-2016 12:58-0400 Respiratory Rate 18 /min Temo Cerna MD [facility] Work Phone: 11-05-2016 12:58-0400 Weight 78.47 kg Temo Cerna MD [facility] Work Phone: Encounters Encounter Date Encounter Type Care Provider Facility Start: 10-18-2024 End: 10-18-[address] Marcelo Mccullough MD Work Phone: -Radiology [facility] Start: 10-18-2024 End: 10-18-[address] Marcelo Mccullough MD -Radiology [facility] Work Phone: Start: 10-18-2024 End: 10-18-2024 Patient encounter procedure Bronwyn MEYERS -[facility] Work Phone: Start: 10-18-2024 End: 10-18-[address] Marcelo Mccullough MD Work Phone: -[facility] Start: 10-18-2024 End: 10-18-2024 ambulatory Marcelo Mccullough Facility:[facility] Start: 09-08-2024 End: 09-08-[address] Marcelo Mccullough MD Work Phone: [facility] Work Phone: Start: 09-08-2024 End: 09-08-[address] Marcelo Mccullough MD -Laboratory Specimen Work Phone: Start: 09-08-2024 End: 09-08-2024 ambulatory Marcelo Mccullough Facility:[facility] Start: 09-05-2024 End: 09-05-[address] Marcelo Mccullough MD Work Phone: [facility] Work Phone: Start: 09-05-2024 End: 09-05-[address] Marcelo Mccullough MD -Laboratory Work Phone: Start: 09-05-2024 End: 09-05-2024 ambulatory Marcelo Mccullough Facility:[facility] Start: 08-31-2024 End: 08-31-[address] Marcelo Mccullough MD Work Phone: [facility] Work Phone: Start: 08-31-2024 End: 08-31-[address] Marcelo Mccullough MD -Cat Scan [facility] Work Phone: Start: 08-31-2024 End: 08-31-2024 ambulatory Marcelo Mccullough Facility:[facility] Start: 08-03-2024 End: 08-03-[address] Marcelo Mccullough MD Work Phone: [facility] Work Phone: Start: 08-03-2024 End: 08-03-[address] Marcelo Mccullough MD -Radiology [facility] Work Phone: Start: 08-03-2024 End: 08-03-[address] Tyson Miller MD -[facility] Work Phone: Start: 08-03-2024 End: 08-03-[address] Marcelo Mccullough MD Work Phone: [facility] Work Phone: Start: 08-03-2024 End: 08-03-2024 ambulatory [facility] Joni Mccullough Facility:[facility] Start: 07-20-2024 End: 07-20-2024 Patient encounter procedure Terrell MEYERS -[facility] Work Phone: Start: 07-20-2024 End: 07-20-2024 ambulatory Terrell MEYERS Facility:[facility] Start: 07-19-2024 End: 07-19-2024 Patient encounter procedure Bronwyn MEYERS -[facility] Work Phone: Start: 07-19-2024 End: 07-19-2024 ambulatory [facility] Jam[facility] Facility:[facility] Start: 07-06-2024 End: 07-06-2024 Emergency department patient visit Dr. Marcelo Mccullough MD Work Phone: -Emergency Department Work Phone: Start: 06-26-2024 Non-patient / Non-visit Dr. Eloy duenas MD -[facility] Start: 06-26-2024 End: 06-26-[address] Marcelo Mccullough MD Work Phone: [facility] Work Phone: Start: 06-26-2024 End: 06-26-[address] Marcelo Mccullough MD -Cardiovascular Services Work Phone: Start: 06-26-2024 End: 06-26-2024 ambulatory Marcelo Joni Jamel Facility:[facility] Start: 05-15-2024 End: 05-15-2024 Patient encounter procedure Dee Ku REPAIR DEPARTMENT SUPERVISOR-C -[facility] Work Phone: Start: 05-15-2024 End: 05-15-2024 ambulatory Dee Ku NP Facility:[facility] Start: 05-03-2024 End: 05-03-[address] 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 Marcelo Mccullough MD -Laboratory, Phy Office 3rd Flr Start: 03-21-2024 End: 03-21-2024 ambulatory Marcelo Joni Jamel Facility:[facility] Start: 03-17-2024 End: 03-17-2024 Patient encounter procedure Dee Ku REPAIR DEPARTMENT SUPERVISOR-C -[facility] Work Phone: Start: 03-17-2024 End: 03-17-2024 ambulatory Dee Ku NP Facility:[facility] Start: 02-28-2024 End: 02-29-2024 ambulatory Jaime Servin Facility:[facility] Start: 02-27-2024 End: 02-27-2024 ambulatory Dee Ku NP Facility:[facility] Start: 12-24-2023 End: 12-24-2023 ambulatory Erick Beltran Facility:[facility] Start: 12-08-2023 End: 12-08-2023 ambulatory Marcelo Chi Jamel Facility:[facility] Start: 11-17-2023 End: 11-17-2023 ambulatory [facility] Chi Jamel Facility:[facility] Start: 11-12-2023 End: 11-12-[address] ERICK BELTRAN MD Facility:[facility] Start: 11-12-2023 End: 11-12-[address] ERICK BELTRAN MD [facility] Start: 10-31-2023 End: 10-31-2023 Emergency department patient visit Eloy Lane Facility:[facility] Start: 05-24-2023 End: 05-24-[address] Marcelo Mccullough Work Phone: [facility] Work Phone: Start: 05-24-2023 End: 05-24-[address] Marcelo Mccullough Work Phone: [facility]-Pulmonary Services/Neurology Work Phone: Start: 03-24-2023 End: 03-24-[address] Marcelo Mccullough Work Phone: [facility] Work Phone: Start: 03-16-2023 Non-patient / Non-visit Dr. Ayden Mccullough Work Phone: [facility] Work Phone: Start: 03-16-2023 End: 03-16-[address] Marcelo Mccullough Work Phone: [facility] Work Phone: Start: 03-16-2023 End: 03-16-2023 Patient encounter procedure [facility]-Cardiovascul ar Services Work Phone: Start: 03-16-2023 End: 03-16-2023 Emergency department patient visit [facility]-Emergency Department Work Phone: Start: 03-10-2023 End: 03-10-2023 Patient encounter procedure [facility]-Laboratory, Phy Office 3rd Flr Start: 02-03-2023 End: 02-03-2023 Emergency department patient visit Dr. Marcelo Mccullough Work Phone: [facility]-Emergency Department Work Phone: Start: 01-18-2023 End: 01-18-2023 Emergency department patient visit Dr. Marcelo Mccullough Work Phone: [facility]-Emergency Department Work Phone: Start: 11-12-2022 Non-patient / Non-visit Dr. Ayden Mccullough Work Phone: [facility] Work Phone: Start: 11-11-2022 Non-patient / Non-visit Dr. Ayden Mccullough Work Phone: [facility] Start: 11-11-2022 Non-patient / Non-visit Dr. Ayden Mccullough Work Phone: [facility] Work Phone: Start: 11-11-2022 End: 11-12-2022 Evaluation and management of inpatient [facility]-Progressive Care Unit Work Phone: Start: 11-06-2022 End: 11-06-2022 Emergency department patient visit [facility]-Emergency Department Work Phone: Start: 10-26-2022 End: 10-26-2022 Emergency department patient visit Dr. Marcelo Mccullough Work Phone: [facility]-Emergency Department Work Phone: Start: 09-03-2022 End: 09-03-[address] Marcelo Mccullough Work Phone: [facility] Work Phone: Start: 09-03-2022 End: 09-03-[address] Marcelo Mccullough Work Phone: [facility]-Laboratory Start: 07-01-2022 Non-patient / Non-visit Dr. Ayden cMcullough Work Phone: [facility] Start: 07-01-2022 End: 07-01-[address] Marcelo Mccullough Work Phone: [facility]-Pulmonary Services/Neurology Start: 06-24-2022 End: 06-24-[address] Marcelo Mccullough Work Phone: [facility] Work Phone: Start: 06-24-2022 End: 06-24-[address] [facility] Start: 06-15-2022 End: 06-15-[address] ERICK BELTRAN MD [facility] Start: 06-08-2022 End: 06-08-[address] Marcelo Mccullough Work Phone: [facility] Start: 05-22-2022 End: 05-22-[address] Marcelo Mccullough Work Phone: [facility] Work Phone: Start: 05-22-2022 End: 05-22-[address] Marcelo Mccullough Work Phone: [facility] Start: 03-06-2022 End: 03-06-[address] Marcelo Mccullough Work Phone: [facility] Start: 03-05-2022 End: 03-05-[address] Marcelo Mccullough Work Phone: [facility] Work Phone: Start: 03-05-2022 End: 03-05-[address] [facility] Start: 02-22-2022 Non-patient / Non-visit Dr. Ayden Mccullough Work Phone: [facility] Start: 02-21-2022 Non-patient / Non-visit Dr. Ayden Mccullough Work Phone: [facility] Start: 02-21-2022 Non-patient / Non-visit Dr. Ayden [facility]ullough [facility] Start: 02-21-2022 End: 02-22-2022 Evaluation and management of inpatient [facility]-Progressive Care Unit Start: 02-21-2022 observation encounter [facility] Work Phone: Start: 02-05-2022 End: 02-05-2022 Patient encounter procedure [facility]-Pulmonary Services/Neurology Start: 09-08-2020 End: 09-08-2020 Emergency department patient visit Delfin Conner DO Work Phone: [facility] Emergency Department Procedures Date Procedure Procedure Detail Performing Clinician Start: 10-18-2024 Plain x-ray of elbow Dr Corazon Mccullough MD Work Phone: Start: 10-18-2024 XR forearm, [address] Marcelo Mccullough MD Work Phone: Start: 09-08-2024 SARS-CoV-2, Influenz a & RSV (PCR) Dr. Marcelo Mccullough MD Work Phone: Start: 09-05-2024 Flow cytometry cell surf marker techl only 1st Dr. Marcelo Mccullough MD Work Phone: Start: 09-05-2024 Vitamin D, 25-hydrox y measurement Dr. Marcelo Mccullough MD Work Phone: Comment on above: Vitamin D StatusDefi ciency: <20 ng/mL (50nmol/L)Insufficiency: 20-30 ng/mL (50-75 nmol/L)Sufficiency: 30-100 ng/mL (75-250 nmol/L)Toxicity: >100 ng/mL (>250 nmol/L) Start: 08-31-2024 CT of thorax with contrast Dr. Marcelo Mccullough MD Work Phone: Start: 08-03-2024 SARS-CoV-2, Influenz a & RSV (PCR) Dr. Marcelo Mccullough MD Work Phone: Start: 08-03-2024 X-ray of chest, PA a nd lateral views Dr. Marcelo Mccullough MD Work Phone: Start: 07-06-2024 Urnls dip stick/tabl et reagent auto microscopy Dr. Marcelo Mccullough MD Work Phone: Start: 07-06-2024 Plain chest X-ray Dr. Radha Mccullough MD Work Phone: Start: 07-06-[address] Marcelo stone MD Work Phone: Start: 05-15-2024 [facility] study results Dr. Marcelo Mccullough MD Work Phone: Start: 04-19-2024 Ecg routine ecg w/le ast 12 lds w/i&r Andrew Wadsworth MD Work Phone: Start: 04-12-2024 History of placement of stent for coronary artery disease Status post primary angioplasty with coronary stent Andrew Wadsworth MD Work Phone: Start: 03-17-2024 Evaluation of diagno [facility] study results Dr. Marcelo Mccullough MD Work Phone: Start: 11-12-[address] ERICK BELTRAN MD Start: 05-24-2023 SARS-CoV-2, Influenz a & RSV (PCR) Dr. Marcelo Mccullough Work Phone: Start: 03-16-2023 Plain chest X-ray Start: 02-03-2023 Urine culture Start: 02-03-2023 Plain chest X-ray Dr. Radha Mccullough Work Phone: Start: 02-03-2023 CT of head without contrast Dr. Marcelo Mccullough Work Phone: Start: 01-18-2023 Plain chest X-ray Dr. Radha Mccullough Work Phone: Start: 11-11-2022 Plain chest X-ray Start: 11-11-[address] GILBERTO BELTRAN MD Start: 11-06-2022 CT cervical spine wi thout contrast Start: 11-06-2022 CT of head without contrast Start: 10-26-2022 Plain chest X-ray Start: 05-22-[address] Marcelo Mccullough Work Phone: Start: 02-21-2022 Plain chest X-ray Start: 11-05-2016 End: 11-09-2016 *Hepatic Function Panel [...] Cris Pruitt PA-C Work Phone: Start: 10-05-2016 History of placement of stent for coronary artery disease History of coronary artery stent placement Comment on above: TFP-XIL-Tlet RCA 3 x 16 mm Promus Synergy TAMIKO 10/05/16 Start: 10-05-2016 Placement of stent i n coronary artery Status post cardiac stent placement Jemma Corrales RN Start: 03-22-[address] ERICK BELTRAN MD Comment on above: per pt History of placement of stent for coronary artery disease Status post primary angioplasty with coronary stent Andrew Wadsworth MD Work Phone: Influenza Types A,B Direct FA (ROGER) Influenza Types A,B Direct FA (ROGER) Dr. Marcelo Mccullough Work Phone: Respiratory syncytia l virus antigen assay Respiratory syncytia l virus antigen assay Dr. Marcelo Mccullough Work Phone: Spinal decompression with discectomy DR ERICK BELTRAN MD Comment on above: lumbar Plan of Treatment Date Care Activity Detail Author Start: 07-06-2024 End: 07-06-2024 [facility] Start: 07-06-2024 Bacteria identified in Urine by Culture Urine Culture [facility] Start: 03-22-2024 Advance Directive Discussion Advance Directive Discussion [facility] Start: 03-17-2024 Patient referral [facility] Work Phone: Start: 11-21-2023 Covid-19 Vaccine () Covid-19 Vaccine () [facility] Start: 03-24-2023 Evaluation of diagnostic study results [facility] Start: 03-16-2023 [facility] Start: 02-03-2023 Bacteria identified in Urine by Culture Urine Culture [facility] Start: 02-03-2023 End: 02-03-2023 [facility] Start: 01-18-2023 [facility] Start: 01-18-2023 [facility] Start: 11-12-2022 Patient discharge [facility] Start: 11-11-2022 Care planning and problem solving actions [facility] Start: 11-11-2022 Referral to act tutor [facility] Start: 11-11-2022 Following clinical pathway protocol [facility] Start: 11-11-2022 Assessment of risk of venous thromboembolism [facility] Start: 11-11-2022 Catheterization of vein [facility] Start: 11-11-2022 Incentive spirometry [facility] Start: 11-11-2022 Inhalation therapy procedure [facility] Start: 11-11-2022 Insertion of catheter into peripheral vein [facility] Start: 11-11-2022 Measuring intake and output [facility] Start: 11-11-2022 Oxygen therapy [facility] Start: 11-11-2022 Providing care according to standard [facility] Start: 11-11-2022 Provision of activity privileges [facility] Start: 11-11-2022 Referral to service [facility] Start: 11-11-2022 [facility] Start: 11-11-2022 Verification routine [facility] Start: 11-11-2022 Admission procedure [facility] Start: 10-26-2022 Plain chest X-ray Chest PA and Lateral [facility] Start: 10-26-2022 XR Chest PA and Lateral [facility] Start: 02-22-2022 Patient discharge [facility] Start: 02-21-2022 Incentive spirometry [facility] Start: 02-21-2022 Ambulation without limitation [facility] Start: 02-21-2022 Assessment of risk of venous thromboembolism [facility] Start: 02-21-2022 Insertion of catheter into peripheral vein [facility] Start: 02-21-2022 Measuring intake and output [facility] Start: 02-21-2022 Oxygen therapy [facility] Start: 02-21-2022 Providing care according to standard [facility] Start: 02-21-2022 Referral to occupational therapist [facility] Start: 02-21-2022 Referral to service [facility] Start: 02-21-2022 Tobacco use cessation education [facility] Start: 02-21-2022 [facility] Start: 02-21-2022 Following clinical pathway protocol [facility] Start: 02-21-2022 Admission procedure [facility] Start: 02-21-2022 [facility] Work Phone: Start: 11-20-2020 Influenza vaccination INFLUENZA VACCINE (Season Ended) [facility] Start: 12-22-2018 Shingrix Vaccine (2 of 2) Shingrix Vaccine (2 of 2) [facility] Start: 06-09-2017 End: 11-20-2016 *Hepatic Function Panel *Hepatic Function Panel [facility] Work Phone: Start: 06-09-2017 End: 11-20-2016 Lipid panel [AGGREGATE] *Lipid Profile CC PCP [facility] Work Phone: Start: 05-17-2017 End: 05-17-2017 Appointment Appointment [facility] Work Phone: Start: 11-05-2016 End: 11-05-2016 Appointment Appointment [facility] Work Phone: Start: 11-05-2016 End: 11-09-2016 *Hepatic Function Panel *Hepatic Function Panel [facility] Work Phone: Start: 11-05-2016 End: 11-05-2016 SOPIHA CORTES [facility] Work Phone: Start: 11-05-2016 End: 11-05-2016 Follow Up Appt 6 months Follow Up Appt 6 months [facility] Work Phone: Start: 11-05-2016 End: 11-09-2016 Lipid panel [AGGREGATE] *Lipid Profile CC PCP [facility] Work Phone: Start: 10-12-2016 End: 10-12-2016 Appointment Appointment [facility] Phone: Start: 10-06-2016 End: 10-06-2016 Stress Echocardiogram (treadmill) Stress Echocardiogram (treadmill) [facility] Phone: Start: 10-05-2016 End: 11-06-2016 [facility] [address], [place], [address] [facility] Phone: Start: 2003 Pneumococcal vaccination PNEUMOCOCCAL VACCINE SERIES (1 of 2 - PCV13) [facility] Start: 1988 Pneumococcal Vaccine: 50+ (1 of 1 - PCV) Pneumococcal Vaccine: 50+ (1 of 1 - PCV) [facility] Start: 1988 Zoster vaccine hzv live for subcutaneous use ZOSTER (SHINGLES) VACCINE (1 of 2) [facility] Start: 1983 Colonoscopy COLORECTAL CANCER SCREENING DISCUSSION [facility] Start: 1983 Diabetes Screening Diabetes Screening [facility] Start: 1957 Third diphtheria, tetanus and acellular pertussis (DTaP) vaccination TDAP (ADULT) [facility] Start: 1957 Urine microalbumin profile DTaP,Tdap,Td Vaccine (1 - Tdap) [facility] Start: 1956 Anxiety Screening Anxiety Screening [facility] Start: 1956 Depression Screening Depression Screening [facility] Start: 1956 Hepatitis B surface antibody level LDL Cholesterol [facility] Start: 1956 Tetanus vaccination TETANUS [facility] Start: 1950 COVID-19 VACCINE (1) COVID-19 VACCINE (1) [facility] Syste m Myoglobin [Mass/volu me] in Serum or Plasma [facility] Patient Education [facility] Work Phone: Patient referral [facility] Work Phone: Urine culture [facility] Immunizations Immunization Date Immunization Notes Care Provider Savannah white 12-23-2023 influenza, high dose seasonal, preservative-free Andrew Wadsworth MD Work Phone: [facility] 01-29-2023 respiratory syncytia l virus (RSV) vaccine, adjuvanted (AREXVY) Andrew Wadsworth MD Work Phone: [facility] 12-31-2022 influenza (HD-IIV4) vaccine, age 65+ yr, high dose, quadrivalent, PF (FLUZONE HIGH-DOSE) Andrew Wadsworth MD Work Phone: [facility] 01-29-2022 influenza (HD-IIV4) vaccine, age 65+ yr, high dose, quadrivalent, PF (FLUZONE HIGH-DOSE) Andrew Wadsworth MD Work Phone: [facility] 08-28-2021 COVID-19 original vaccine, full dose, monovalent (MODERNA) Andrew Wadsworth MD Work Phone: [facility] 02-27-2021 influenza, injectabl e, quadrivalent, contains preservative Andrew Wadsworth MD Work Phone: [facility] 2020 Covid (Moderna) [facility] 04-12-2020 Covid (Moderna) [facility] 01-01-2020 influenza, injectabl e, quadrivalent, contains preservative Andrew Wadsworth MD Work Phone: [facility] 02-14-2019 influenza, injectabl e, quadrivalent, contains preservative Andrew Wadsworth MD Work Phone: [facility] 10-27-2018 zoster vaccine recombinant Andrew Wadsworth MD Work Phone: [facility] 01-28-2017 influenza, injectabl e, quadrivalent, contains preservative Andrew Wadsworth MD Work Phone: [facility] 01-08-2016 influenza, injectabl e, quadrivalent, preservative free Dr. Marcelo Mccullough Work Phone: [facility] 01-08-2016 influenza, seasonal, injectable [facility] 01-02-2015 pneumococcal polysaccharide vaccine, 23 valent [facility] 03-05-2009 novel influenza-H1N1 -09, preservative-free, injectable Andrew Wadsworth MD Work Phone: [facility] Payers Date Payer Category Payer Private Health Insurance [id number] 2024 Private Health Insurance [id number] 2024 Private Health Insurance [id number] 2023 Self-pay [id number] 2023 Unknown [id number] 2020 Private Health Insurance AETNA A ETNA [id number] 2020-Present [id number]. [id number] 2003 Medicare [id number] 1938 Unknown [id number] 2..840.1.763782.3.579.2.62 7 Unknown [id number] 2..840.1.512704.3.579.2.46 2 Unknown [id number] 2.16.840.1.247205.3.579.2.46 2 Unknown [id number] 2.16.840.1.913742.3.579.2.46 2 Unknown [id number] 2.16.840.1.837704.3.579.2.46 2 Unknown [id number] 2.16.840.1.199865.3.579.2.46 2 Unknown [id number] 2.16.840.1.546037.3.579.2.46 2 Unknown [id number] 2.16.840.1.427135.3.579.2.46 2 Unknown [id number] 2.16.840.1.652059.3.579.2.46 2 Unknown [id number] 2.16.840.1.846357.3.579.2.46 2 Unknown [id number] 2.16.840.1.912286.3.579.2.46 2 Unknown [id number] 2.16.840.1.812143.3.579.2.46 2 Unknown [id number] 2.16.840.1.593547.3.579.2.46 2 Unknown [id number] 2.16.840.1.568351.3.579.2.46 2 Unknown [id number] 2.16.840.1.852039.3.579.2.46 2 Unknown [id number] 2.16.840.1.699338.3.579.2.46 2 Unknown [id number] 2.16.840.1.043144.3.579.2.46 2 Unknown [id number] 2.16.840.1.535725.3.579.2.46 2 Unknown [id number] 2.16.840.1.881375.3.579.2.46 2 Unknown [id number] 2.16.840.1.023002.3.579.2.46 2 Unknown [id number] 2.16.840.1.637659.3.579.2.46 2 Unknown [id number] 2.16.840.1.958281.3.579.2.46 2 Unknown [id number] 2.16.840.1.224691.3.579.2.46 2 Unknown [id number] 2.16.840.1.064815.3.579.2.46 2 Unknown [id number] 2.16.840.1.642256.3.579.2.46 2 Unknown [id number] 2.16.840.1.807294.3.579.2.46 2 Unknown [id number] 2.16.840.1.168211.3.579.2.46 2 Social History Date Type Detail Facility Start: 09-08-2020 End: 07-06-2024 Tobacco smoking status NHIS Former smoker [facility] Comment on above: QUIT IN THE 80s Start: 09-08-2020 Tobacco use and exposure Never used [facility] Start: 09-08-2020 Alcohol intake Ex-drinker (finding) [facility] Start: 1940 Sex Assigned At Not on file A [employer] Exposure to SARS-CoV -2 (event) Not sure [facility] Start: 02-21-2022 End: 03-24-2023 Tobacco smoking status DEIS Unknown if ever smoked [facility] Start: 1940 Sex Assigned At Male [facility] History of tobacco use Current smoker [facility] Start: 04-19-2024 Tobacco use and exposure Former smokeless tobacco user [facility] End: 03-22-1984 History of tobacco use Chews Tobacco [facility] Start: 04-19-2024 Alcoholic beverage intake Current non-drinker of alcohol (finding) [facility] Start: 04-19-2024 History of Social function [facility] Start: 04-19-2024 Tobacco use panel [facility] National Score (1-10 0), lower number is lower risk 65 [facility] Start: 04-19-2024 Tobacco Comment [facility] Start: 06-30-2024 End: 07-06-2024 Sex Male (finding) [facility] Goals Date Patient Goal Desired Activity /State Personal health goal Functional Status Date Assessment Result Facility 11-12-2023 Functional Status Maintained, More than 8 hours [facility] 11-12-2022 Functional status Ambulates;Tejas r;Bathroom Privilege;Active Range of Motion [facility] Work Phone: 06-15-2022 Functional Status Ambulating in room [facility] 06-15-2022 Functional Status Maintained [facility] 02-22-2022 Functional status Ambulates [facility] Work Phone: Mental Status Date Assessment Result Facility 07-06-2024 Cognitive function Level Of Cons ciousness Awake;Alert;Appropriate;Follow s Commands [facility] Work Phone: 03-16-2023 Cognitive function Level Of Cons ciousness Awake;Alert [facility] Work Phone: 02-03-2023 Cognitive function Level Of Cons ciousness Awake;Alert;Appropriate;Follow s Commands [facility] Work Phone: 11-12-2022 Cognitive function Voice/Name [facility] Work Phone: 11-11-2022 Cognitive function Awake;Alert;Appropriat e [facility] Work Phone: 06-15-2022 Mental Status Orientation Oriented x 4 [facility] 06-15-2022 Mental Status [facility] 02-22-2022 Cognitive function Voice/Name [facility] Work Phone: 02-21-2022 Cognitive function Level Of Cons ciousness Awake;Alert;Appropriate;Follow s Commands [facility] Work Phone: Clinical Notes 09-08-2020 to 10-18-2024 Note Date & Type Note Facility 10-18-2024 Radiology Diagnostic study note [facility] Imaging Services [address] [place] [address] Elbow min 3 Views MR#: [id number] Acct: [id number] Name: IRWIN CORDERO Rep #: [id number] : 1940 M 84 From: Itz Morales MD PCP: Dr. Marcelo Mccullough MD Status: REG C SEBASTIÁN Study:Elbow min 3 Views Date of Exam: Exam# [id number] Ordering Dr: Marcelo Mccullough MD PROCEDURE: ELBOW MIN 3 VIEWS 10/18/2024 REASON FOR EXAM: OLECRANON BURSITIS, LEFT ELBOW LEFT ARM PAIN TECHNIQUE: ELBOW MIN 3 VIEWS COMPARISON: None FINDINGS: Bones: No fracture or dislocation. 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 There is evidence of a nondisplaced radial neck fracture. Age of which can not be determined at this time. Soft tissues: Small joint effusion. 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 Small joint effusion. Reading Location: [facility] CC: Dr. Marcelo Mccullough MD ~ Tool And Die Supervisor: Signed [facility] 10-18-2024 Radiology Diagnostic study note [facility] Imaging Services [address] [place] [id number] Forearm 2 Views MR#: [id number] Acct: [id number] Name: IRWIN CORDERO Rep #: [id number] : 1940 M 84 From: Itz Morales MD PCP: Dr. Marcelo Mccullough MD Status: [facility] Study:Forearm 2 Views Date of Exam: 09/21 Exam# [id number] Ordering Dr: Marcelo Mccullough MD PROCEDURE: FOREARM 2 VIEWS 10/18/2024 REASON FOR EXAM: LEFT ELBOW PAIN LET ARM PAIN OLECRANON BURSITIS, LEFT ELBOW TECHNIQUE: FOREARM 2 VIEWS COMPARISON: None FINDINGS: Bones: No fracture or subluxation. 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 Soft tissues: Tiny joint effusion. 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 Tiny joint effusion. No evidence of fracture or dislocation Reading Location: [facility] CC: Dr. Marcelo Mccullough MD ~ Tool And Die Supervisor: Signed [facility] 09-01-2024 Radiology Diagnostic study note [facility] [address] [facility] [facility] [place] [address] Chest WITH Contrast MR#: [id number] Acct: [id number] Name: IRWIN CORDERO Rep #: [id number] : 1940 M 84 From: Itz Morales MD PCP: Dr. Marcelo Mccullough MD Status: [facility] Study:Chest WITH Contrast Date of Exam: 08/31/24 Exam# [id number] Ordering Dr: Marcelo Mccullough MD PROCEDURE: CHEST WITH CONTRAST 08/31/2024 REASON FOR EXAM: COUGH TECHNIQUE: Prone and supine chest CT with intravenous contrast, high resolution CT (HRCT) protocol. Coronal and Sagittal reconstruction series were provided. CONTRAST: Isovue-300 VOLUME: 100 mL One or more dose reduction techniques were used (e.g., Automated exposure control, adjustment of the mA and/or kV according to patient size, use of iterative reconstruction technique). RADIATION DOSE SUMMARY: CTDlvol: 10.35 mGy DLP: 272.46 mGycm COMPARISON: Prior chest radiograph dated August 04, 2024. FINDINGS: Hardware: None Lymph nodes: No suspicious lymph nodes are seen. Heart and Vasculature: Normal heart size. No pericardial effusion. Atherosclerotic calcifications of the thoracic aorta. Pulmonary arteries are unremarkable. Coronary artery calcification. Lungs and Airways: Scarring at the lung bases as well as a minimal scarring and volume loss in the lingular segment of the left upper lobe. Pleura: No pleural effusion Upper Abdomen: Unremarkable Bones: Degenerative changes of the thoracic spine. CT/Chest WITH Contrast IMPRESSION: Coronary artery calcification (CAC) is is present Hyperinflation with bibasilar scarring as well as scarring in the lingula segment of the left upper Reading Location: [facility] CC: Dr. Marcelo Mccullough MD ~ Tool And Die Supervisor: Signed [facility] 08-04-2024 Radiology Diagnostic study note [facility] Imaging Services [address] [place] [address] Chest PA and Lateral MR#: [id number] Acct: [id number] Name: IRWIN CORDERO Rep #: [id number] : 1940 M 84 From: Neri Ortiz MD PCP: Dr. Marcelo Mccullough MD Status: [facility] Study:Chest PA and Lateral Date of Exam: 08/03/24 Exam# [id number] Ordering Dr: Marcelo Mccullough MD PROCEDURE: CHEST PA AND LATERAL 08/03/2024 REASON FOR EXAM: WHEEZING TECHNIQUE: Frontal and lateral views of the chest. COMPARISON: 07/06/2024 FINDINGS: The lungs appear clear. Hyperinflation again noted. Mild atelectasis or scarring at the bases appears unchanged. No pleural effusion. Pulmonary vascularity appears within limits. The cardiac and mediastinal contours appear within limits. RAD/Chest PA and Lateral IMPRESSION: No evidence of acute disease. Reading Location: [id number] CC: Dr. Marcelo Mccullough MD ~ Tool And Die Supervisor: Signed [facility] 07-19-2024 Evaluation note Diagnosis Onset Date Resolution Chronic deep vein thrombosis (DVT) of both lower extremities acute July 19 9:02am Leg edema acute July 19 9:02am Lymphedema acute July 19 9:02am Venous stasis of both lower extremities acute July 19 9:02am History of DVT (deep vein thrombosis) chronic July 19, 2024 9:02am Acute bronchitis acute July 20, 2024 4:19pm Atherosclerosis of coronary artery of [place] heart without angina pectoris chronic August 03, 2024 8:25am Essential (primary) hypertension chronic August 03, 2024 8:25am History of DVT (deep vein thrombosis) chronic August 03, 2024 8:25am Hyperlipidemia chronic August 03, 2024 8:25am Paroxysmal atrial fibrillation chronic August 03, 2024 8:25am [facility] Work Phone: 1(640) 716-179204-30-2025 Evaluation note* Diagnosis Onset Date Resolution Status Admit Date Chronic deep vein thrombosis (DVT) of both lower extremities acute July 19, 2024 9:02am Leg edema acute July 19 9:02am Lymphedema acute July 19 9:02am Venous stasis of both lower extremities acute July 19, 2024 9:02am History of DVT (deep vein thrombosis) chronic July 19, 2024 9:02am Acute bronchitis acute July 20, 2024 4:19pm Atherosclerosis of coronary artery of [place] heart without angina pectoris chronic August 03, 2024 8 :25am Essential (primary) hypertension chr onic August 03, 2024 8:25am History of DVT (deep vein thrombosis) chronic August 03, 2024 8 :25am Hyperlipidemia chronic August 03, 2024 8:25am Paroxysmal atrial fibrillation chron ic August 03, 2024 8:25am Chronic deep vein thrombosis (DVT) of both lower extremities acute October 18, 2024 9:56am Leg edema acute October 18 9:56am Lymphedema acute October 18 9:56am Venous stasis of both lower extremities acute October 18, 2024 9:56am History of DVT (deep vein thrombosis) chronic October 18, 2024 9:56am [facility] Work Phone: 1(249) 476-237904-17-2025 Discharge summary [facility] Medical Records Department [address] [place] [id number] Emergency Department Summary 07/06/24 MR#: [id number] Acct: [id number] Name: IRWIN CORDERO Rep #:[id number] : 1940 84 From: Amado Anderson MD PCP: Dr. Marcelo Mccullough MD Status:REG E R Location: ED HPI History of Present Illness Chief Complaint: General Illness Narrative Narrative: 84-year-old male past medical history of atrial fibrillation, chronic leg swelling with transudate from the left lower extremity presents with his daughter because of generalized weakness and shortness of breath along with the leg swelling. They relate history that approximately 11 days ago he began having bilateral leg swelling. They saw their primary care provider, Dr. Mccullough, who ordered ultrasounds and there is no evidence of blood clots. Daughter states that his bilateral legs continue to swell. They were seen by the [facility] group and outpatient testing for heart failure were ordered,but they stated that if the patient became worse that he should come to the ED. Patient has had a ge neralized weakness but denies any fevers or chills. He has a chronic cough. His daughter states that he seemed very short of breath this morning. He denies any chest pain, no recent nausea or vomiting. He states he has been eating well but does not drink a large amount of fluids. They present to the emergency department mainly because of his generalized weakness and bilateral leg swelling. [facility] Medical History History of DVT (deep vein thrombosis) Atherosclerosis of coronary artery of [place] heart without angina pectoris Overweight (BMI 25.0-29.9) Hypertension Coronary artery disease A-fib Paroxysmal atrial fibrillation Anemia New onset a-fib Heartburn Bronchitis PUD (peptic ulcer disease) Deep vein thrombosis of left lower extremity (2012) Essential (primary) hypertension DDD (degenerative disc disease) Non-ST elevation (NSTEMI) myocardial infarction (10/03/16) PND (post-nasal drip) Multiple allergies Cough Prostate enlargement Stomach ulcer GERD (gastroesophageal reflux disease) Glaucoma Skin cancer Unstable angina Hyperlipidemia Crohn disease Home Medications ?Medication ?Instructions ?Recorded ?Last Taken ?Type nitroglycerin 0.4 mg sublingual 0.4 mg sublingual Q5-1 5M PRN Chest 04/06/17 Unknown History tablet (Nitrostat) Pain pantoprazole 40 mg tablet,delayed 40 mg PO DAILY stoma ch 01/26/20 02/20/22 09:00 History release acetaminophen 325 mg tablet 650 mg PO Q6H PRN Breakthr ough 05/08/21 02/27/24 History (Tylenol) Pain, Mild levocetirizine 5 mg tablet 5 mg PO QHS 01/18/23 Unknow n History apixaban 5 mg tablet (Eliquis) 2.5 mg PO BID blood thi nner 10/28/23 02/23/24 History Held on 02/29/24. Instructions: Until cleared to start again by Dr. Beltran vit C 250 mg-vit E 90 mg-zinc 40 1 tab PO BID 02/28/24 Unknown History mg-copper 1 [id number] capsule (PreserVision AREDS-2) aspirin 81 mg chewable tablet 81 mg PO BREAKFAST #0 ta bs 02/29/24 Unknown Rx ferrous sulfate 324 mg (65 mg 324 mg PO QDAY 03/17/24 Unknown History iron) tablet,delayed release amiodarone 200 mg tablet 100 mg (1/2 x 200 mg) PO QDA Y #90 04/10/24 Unknown Rx tabs metoprolol tartrate 25 mg tablet 25 mg PO BID #180 tab s 04/11/24 Unknown Rx Held on 05/15/24. Instructions: Fatigue/Weakness 05/15/2024 atorvastatin 20 mg tablet 20 mg PO QHS cholesterol Unknown History balsalazide 750 mg capsule 2,250 mg PO TID stomach Unknown History calcium carbonate (Tums) 200 mg PO BID 05/15/24 Unkno wn History guaifenesin 100 mg/5 mL oral liquid 200 mg PO Q4H PRN 05/15/24 Unknown History levothyroxine 25 mcg tablet 25 mcg PO QDAY 05/15/24 Un known History mesalamine 1,000 mg rectal 1,000 mg [place] Q OTHER DAY Unknown History suppository polyethylene glycol 3350 17 17 g PO QDAY PRN 05/15/24 Unknown History gram/dose oral powder (Miralax) cephalexin 500 mg capsule 500 mg PO Q12 #14 CAPSULES 0 07/06/24 Unknown Rx Allergy/AdvReac Type Severity Reaction Status Date / Time albuterol Allergy Severe Chest Verified 07/06/24 14:06 tightness/afib rvr digoxin Allergy Intermediate Dizziness, Verified 07/06/24 14:06 headache, fuzzy thoughts ragweed pollen AdvReac Intermediate Nasal Verified 07/06/24 14:06 congestion Family History Father Heart disease Mother CVA (cerebral vascular accident) Surgical History History of dental surgery (04/15/21) History of coronary artery stent placement (10/05/16) Previous back surgery H/O colonoscopy Social History household members: spouse current occupation: 50 years ago Smoking Status: Former smoker second hand exposure: No alcohol intake: never substance use type: does not use ROS ROS ED ROS Narrative Constitutional: No fever, no chills. Positive generalized weakness and malaise. Cardiovascular: No chest pain. No palpitations. Positive bilateral pedal edema. 3 years of transudate from left lower extremity Respiratory: Chronic cough, today had shortness of breath. Abdominal: No abdominal pain. No nausea. No vomiting. No diarrhea. Genitourinary: No dysuria. No hematuria. Musculoskeletal: No myalgias. No arthralgias. EXAM Physical Exam Narrative Exam Narrative: Afebrile. Vital signs noted. Nontoxic-appearing. Cardiovascular examination reveals a regular rate and rhythm. Lungs are clear to auscultation bilaterally. Moving a good amount of air. Abdomen is soft, nontender, with positive bowel sounds. No guarding or rebound. Neurological examination nonfocal, nonlateralizing. There is bilateral pedal edema that appears chronic with driedtransudate on stockinette of left lower extremity. Appears neurovascularly intact bilaterally without cyanosis, or crepitance of bilateral lower extremities. Const Vital Signs: 07/06/24 14:06 07/06/24 14:57 07/06/24 16:30 Temperature 98.2 F Temperature Source Oral Pulse Rate 67 65 Respiratory Rate 18 16 Respiratory Effort Short of Breath Respiratory Pattern Normal Blood Pressure 122/71 H 145/77 H Blood Pressure Mean 88 97 Pulse Ox 94 MDM MDM MDM Narrative Medical decision making narrative: Differential diagnosis includes but not limited to dehydration versus other electrolyte imbalance versus CHF that has been undiagnosed versus pneumonia. Comprehensive workup was pursued. EKG was obtained and interpreted by myself independently as normal sinus rhythm at 65 bpm without ectopy or acute ST changes. No STEMI. I reviewed his laboratory work and WBC count normal at 5.0 withhemoglobin stable at 12.4, hematocrit 36.9. Platelet count normal at 262. Electrolyte panel is grossly unremarkable with normal sodium and normal potassium. Glucose 102 with a normalanion gap of 9. proBNP 358 and given his age, heart failure unlikely as it is below the cutoff of 1800. Chest x-ray in 1 view interpreted by myself independently shows no significant consolidation, chronic changes with no significant change from previous. I reviewed the radiology report which confirms my independentinterpretation and comments on atelectasis in the right base. I reviewed his urinalysis and it is slightly cloudy with 10-25 WBCs but greater than 100 RBCs. Thiswas sent for culture. I will start him on cephalexin. At this point in time, I do not feel he requires admission. I feel he can be followed up with his primary care provider and I wrote him a prescription for cephalexin to take twice a day for the next week regarding his UTI. Dispositionis discharge d home in stable condition. History & Record Review Discussion w/independent historian: Patient and Family (Daughter) Additional record(s) reviewed:: Prior labs Lab Data Attestation: I reviewed the patient's lab results. Labs: Laboratory Results - last 24 hr 07/06/24 07/06/24 14:15 16:19 WBC 5.0 RBC 3.81 L Hgb 12.4 L Hct 36.9 L MCV 96.9 H MCH 32.5 H MCHC 33.6 RDW Std Deviation 52.6 H RDW Coeff of Gaby 14.9 H Plt Count 262 MPV 9.3 Immature Gran % (Auto) 1.000 H Neut % (Auto) 43.7 L Lymph % (Auto) 23.2 [place] % (Auto) 23.6 H Eos % (Auto) 7.9 H Baso % (Auto) 0.6 Absolute Neuts (auto) 2.2 Absolute Lymphs (auto) 1.15 Nucleated RBC % 0 Sodium 140 Potassium 3.9 Chloride 106 Carbon Dioxide 24.9 Anion Gap 9 BUN 13 Creatinine 0.88 Est GFR (MDRD) Non-Af 84 BUN/Creatinine Ratio 14.6 Glucose 102 H Calcium 8.6 Total Bilirubin 0.80 AST 26 ALT 10 Alkaline Phosphatase 70 NT pro BNP II 358 Total Protein 6.6 Albumin 3.8 Globulin 2.9 Albumin/Globulin Ratio 1.3 Urine Color Yellow Urine Clarity Sl. Cloudy Urine pH 6.5 Ur Specific [place] 1.020 Urine Protein TNP Urine Glucose (UA) Normal Urine Ketones Negative Urine Occult Blood 250 H Urine Nitrite Negative Urine Bilirubin Negative Urine Urobilinogen 1 H Ur Leukocyte Esterase 500 H Urine RBC > 100 SEEN Urine WBC 10-25 SEEN Ur Squamous Epith Cells 0 SEEN Urine Bacteria 0 SEEN Urine Mucus 0 SEEN Urine Collection Time Cancelled Timed Urine Volume Cancelled Ur Total Protein 24 Hr Cancelled Urine Total Protein Cancelled Radiography Chest X-Ray - ED: 1 View, Read by ED Physician and Read by Radiologist Diagnostic Testing: Clinical Impression(s) from Imaging Studies Chest X-Ray 07/06/24 15:15 IMPRESSION: Right lung base atelectasis. Reading [facility] Discharge Plan Triage Chief Complaint: General Illness ED Provider: Amado Anderson Dx/Rx/DC Orders Clinical Impression: Generalized weakness, SOB (shortness of breath), UTI (urinary tract infection) Instructions: ED Dyspnea, ED Bladder Infection, Male (Adult), ED Weakness Uncertain Cause Prescriptions: New cephalexin 500 mg capsule 500 mg PO Q12 Qty: 14 0RF No Action nitroglycerin [Nitrostat] 0.4 mg tablet, sublingual 0.4 mg SUBLINGUAL Q5-15M PRN (Reason: Chest Pain) Patient Comments: pt. states he has never had to take it atorvastatin 20 mg tablet 20 mg PO QHS pantoprazole 40 mg tablet,delayed release (DR/EC) 40 mg PO DAILY acetaminophen [Tylenol] 325 mg tablet 650 mg PO Q6H PRN (Reason: Breakthrough Pain, Mild) ferrous sulfate 324 mg (65 mg iron) tablet,delayed release (DR/EC) 324 mg PO QDAY mesalamine 1,000 mg suppository 1,000 mg [place] Q OTHER DAY levothyroxine 25 mcg tablet 25 mcg PO QDAY polyethylene glycol 3350 [Miralax] 17 gram/dose powder 17 g PO QDAY PRN calcium carbonate [Tums] 200 mg calcium (500 mg) tablet,chewable 200 mg PO BID guaifenesin 100 mg/5 mL liquid 200 mg PO Q4H PRN balsalazide 750 mg capsule 2,250 mg PO TID levocetirizine 5 mg tablet 5 mg PO QHS Patient Comments: TAKE 1 TABLET BY MOUTH EVERYDAY AT BEDTIME PreserVision AREDS-2 250-90-40-1 mg capsule 1 tab PO BID aspirin 81 mg Tablet,Chewable 81 mg PO BREAKFAST Qty: 0 0RF Eliquis 5 mg tablet 2.5 mg PO BID Patient Comments: Patient took himself off last Wednesday due to bleeding. amiodarone 200 mg tablet 100 mg PO QDAY Qty: 90 3RF metoprolol tartrate 25 mg tablet 25 mg PO BID Qty: 180 3RF Primary Care Provider: Marcelo Mccullough Chi Referrals: Marcelo Mccullough Chi, MD [Primary Care Provider] - 3-5 Days if not improving Activity Restrictions/Additional Instructions: Antibiotics as directed. Follow-up with your primary care provider. Return with increased shortnessof breath, new or worsening symptoms. Print Language: Thai Disposition Disposition: Home, Self Care What to do if you have Problems For any increased pain, shortness of breath, bleeding, nausea or vomiting, chestpain, or any unexpected problems, contact your Primary Care Provider. Call [facility] ([phone]) or report tothe closest Emergency Room. Call 911 if necessary. 07/06/24 1650 Cosigner Signature (if applicable): CC: Dr. Marcelo Mccullough MD ~ Signed [facility]04-17-2025 Radiology Diagnostic study note [facility] Imaging Services [address] [place], [place] [id number] Chest 1 View (Portable) MR#: [id number] Acct: [id number] Name: IRWIN CORDERO Rep #: [id number] : 1940 M 84 From: Kaelyn Velazquez MD PCP: Dr. Marcelo Mccullough MD Status: REG E R Study:Chest 1 View (Portable) Date of Exam: 07/06/24 Exam# [id number] Ordering Dr: Amado Anderson MD PROCEDURE: CHEST 1 VIEW (PORTABLE) 07/06/2024 REASON FOR EXAM: SHORTNESS OF BREATH TECHNIQUE: Frontal view of the chest. COMPARISON: None FINDINGS: Heart: The heart size is normal. Lungs: Right lung base atelectasis. No focal consolidation or large pleural effusion. RAD/Chest 1 View (Portable) IMPRESSION: Right lung base atelectasis. Reading Location: [facility] CC: Dr. Amado Anderson MD; Dr. Marcelo Mccullough MD ~ [employer]: Signed [facility]04-17-2025 Discharge summary Author Amado Anderson [facility] Note Date/Time July 06, 2024 4:5 0pm [facility] Medical Records Department [address] [place] [address] Emergency Department Summary 07/06/24 MR#: [id number] Acct: [id number] Name: IRWIN CORDERO Rep #:[id number] : 1940 84 From: Amado Anderson MD PCP: Dr. Marcelo Mccullough MD Status:REG E R Location: ED HPI History of Present Illness Chief Complaint: General Illness Narrative Narrative: 84-year-old male past medical history of atrial fibrillation, chronic leg swelling with transudate from the left lower extremity presents with his daughter because of generalized weakness and shortness of breath along with the leg swelling. They relate history that approximately 11 days ago he began having bilateral leg swelling. They saw their primary care provider, Dr. Mccullough, who ordered ultrasounds and there is no evidence of blood clots. Daughter states that his bilateral legs continue to swell. They were seen by the [facility] group and outpatient testing for heart failure were ordered, but they stated that if the patient became worse that he should come to the ED. Patient has had a generalized weakness but denies any fevers or chills. He has a chronic cough. His daughter states that he seemed very short of breath this morning. He denies any chest pain, no recent nausea or vomiting. He states he has been eating well but does not drink a large amount of fluids. They present to the emergency department mainly because of his generalized weakness and bilateral leg swelling. [facility] Medical History History of DVT (deep vein thrombosis) Atherosclerosis of coronary artery of [place] heart without angina pectoris Overweight (BMI 25.0-29.9) Hypertension Coronary artery disease A-fib Paroxysmal atrial fibrillation Anemia New onset a-fib Heartburn Bronchitis PUD (peptic ulcer disease) Deep vein thrombosis of left lower extremity (2012) Essential (primary) hypertension DDD (degenerative disc disease) Non-ST elevation (NSTEMI) myocardial infarction (10/03/16) PND (post-nasal drip) Multiple allergies Cough Prostate enlargement Stomach ulcer GERD (gastroesophageal reflux disease) Glaucoma Skin cancer Unstable angina Hyperlipidemia Crohn disease Home Medications ?Medication ?Instructions ?Recorded ?Last Taken ?Type nitroglycerin 0.4 mg sublingual 0.4 mg sublingual Q5-1 5M PRN Chest 04/06/17 Unknown History tablet (Nitrostat) Pain pantoprazole 40 mg tablet,delayed 40 mg PO DAILY stoma ch 01/26/20 02/20/22 09:00 History release acetaminophen 325 mg tablet 650 mg PO Q6H PRN Breakthr ough 05/08/21 02/27/24 History (Tylenol) Pain, Mild levocetirizine 5 mg tablet 5 mg PO QHS 01/18/23 Unknow n History apixaban 5 mg tablet (Eliquis) 2.5 mg PO BID blood thi nner 10/28/23 02/23/24 History Held on 02/29/24. Instructions: Until cleared to start again by Dr. Beltran vit C 250 mg-vit E 90 mg-zinc 40 1 tab PO BID 02/28/24 Unknown History mg-copper 1 [id number] capsule (PreserVision AREDS-2) aspirin 81 mg chewable tablet 81 mg PO BREAKFAST #0 ta bs 02/29/24 Unknown Rx ferrous sulfate 324 mg (65 mg 324 mg PO QDAY 03/17/24 Unknown History iron) tablet,delayed release amiodarone 200 mg tablet 100 mg (1/2 x 200 mg) PO QDA Y #90 04/10/24 Unknown Rx tabs metoprolol tartrate 25 mg tablet 25 mg PO BID #180 tab s 04/11/24 Unknown Rx Held on 05/15/24. Instructions: Fatigue/Weakness 05/15/2024 atorvastatin 20 mg tablet 20 mg PO QHS cholesterol Unknown History balsalazide 750 mg capsule 2,250 mg PO TID stomach Unknown History calcium carbonate (Tums) 200 mg PO BID 05/15/24 Unkno wn History guaifenesin 100 mg/5 mL oral liquid 200 mg PO Q4H PRN 05/15/24 Unknown History levothyroxine 25 mcg tablet 25 mcg PO QDAY 05/15/24 Un known History mesalamine 1,000 mg rectal 1,000 mg [place] Q OTHER DAY Unknown History suppository polyethylene glycol 3350 17 17 g PO QDAY PRN 05/15/24 Unknown History gram/dose oral powder (Miralax) cephalexin 500 mg capsule 500 mg PO Q12 #14 CAPSULES 0 07/06/24 Unknown Rx Allergy/AdvReac Type Severity Reaction Status Date / Time albuterol Allergy Severe Chest Verified 07/06/24 14:06 tightness/afib rvr digoxin Allergy Intermediate Dizziness, Verified 07/06/24 14:06 headache, fuzzy thoughts ragweed pollen AdvReac Intermediate Nasal Verified 07/06/24 14:06 congestion Family History Father Heart disease Mother CVA (cerebral vascular accident) Surgical History History of dental surgery (04/15/21) History of coronary artery stent placement (10/05/16) Previous back surgery H/O colonoscopy Social History household members: spouse current occupation: 50 years ago Smoking Status: Former smoker second hand exposure: No alcohol intake: never substance use type: does not use ROS ROS ED ROS Narrative Constitutional: No fever, no chills. Positive generalized weakness and malaise. Cardiovascular: No chest pain. No palpitations. Positive bilateral pedal edema. 3 years of transudate from left lower extremity Respiratory: Chronic cough, today had shortness of breath. Abdominal: No abdominal pain. No nausea. No vomiting. No diarrhea. Genitourinary: No dysuria. No hematuria. Musculoskeletal: No myalgias. No arthralgias. EXAM Physical Exam Narrative Exam Narrative: Afebrile. Vital signs noted. Nontoxic-appearing. Cardiovascular examination reveals a regular rate and rhythm. Lungs are clear to auscultation bilaterally. Moving a good amount of air. Abdomen is soft, nontender, with positive bowel sounds. No guarding or rebound. Neurological examination nonfocal, nonlateralizing. There is bilateral pedal edema that appears chronic with driedtransudate on stockinette of left lower extremity. Appears neurovascularly intact bilaterally without cyanosis, or crepitance of bilateral lower extremities. Const Vital Signs: 07/06/24 14:06 07/06/24 14:57 07/06/24 16:30 Temperature 98.2 F Temperature Source Oral Pulse Rate 67 65 Respiratory Rate 18 16 Respiratory Effort Short of Breath Respiratory Pattern Normal Blood Pressure 122/71 H 145/77 H Blood Pressure Mean 88 97 Pulse Ox 94 MDM MDM MDM Narrative Medical decision making narrative: Differential diagnosis includes but not limited to dehydration versus other electrolyte imbalance versus CHF that has been undiagnosed versus pneumonia. Comprehensive workup was pursued. EKG was obtained and interpreted by myself independently as normal sinus rhythm at 65 bpm without ectopy or acute ST changes. No STEMI. I reviewed his laboratory work and WBC count normal at 5.0 with hemoglobin stable at 12.4, hematocrit 36.9. Platelet count normal at 262. Electrolyte panel is grossly unremarkable with normal sodium and normal potassium. Glucose 102 with a normalanion gap of 9. proBNP 358 and given his age, heart failure unlikely as it is below the cutoff of 1800. Chest x-ray in 1 view interpreted by myself independently shows no significant consolidation, chronic changes with no significant change from previous. I reviewed the radiology report which confirms my independent interpretation and comments on atelectasis in the right base. I reviewed his urinalysis and it is slightly cloudy with 10-25 WBCs but greater than 100 RBCs. This was sent for culture. I will start him on cephalexin. At this point in time, I do not feel he requires admission. I feel he can be followed up with his primary care provider and I wrote him a prescription for cephalexin to take twice a day for the next week regarding his UTI. Dispositionis discharged home in stable condition. History & Record Review Discussion w/independent historian: Patient and Family (Daughter) Additional record(s) reviewed:: Prior labs Lab Data Attestation: I reviewed the patient's lab results. Labs: Laboratory Results - last 24 hr 07/06/24 07/06/24 14:15 16:19 WBC 5.0 RBC 3.81 L Hgb 12.4 L Hct 36.9 L MCV 96.9 H MCH 32.5 H MCHC 33.6 RDW Std Deviation 52.6 H RDW Coeff of Gaby 14.9 H Plt Count 262 MPV 9.3 Immature Gran % (Auto) 1.000 H Neut % (Auto) 43.7 L Lymph % (Auto) 23.2 [place] % (Auto) 23.6 H Eos % (Auto) 7.9 H Baso % (Auto) 0.6 Absolute Neuts (auto) 2.2 Absolute Lymphs (auto) 1.15 Nucleated RBC % 0 Sodium 140 Potassium 3.9 Chloride 106 Carbon Dioxide 24.9 Anion Gap 9 BUN 13 Creatinine 0.88 Est GFR (MDRD) Non-Af 84 BUN/Creatinine Ratio 14.6 Glucose 102 H Calcium 8.6 Total Bilirubin 0.80 AST 26 ALT 10 Alkaline Phosphatase 70 NT pro BNP II 358 Total Protein 6.6 Albumin 3.8 Globulin 2.9 Albumin/Globulin Ratio 1.3 Urine Color Yellow Urine Clarity Sl. Cloudy Urine pH 6.5 Ur Specific [place] 1.020 Urine Protein TNP Urine Glucose (UA) Normal Urine Ketones Negative Urine Occult Blood 250 H Urine Nitrite Negative Urine Bilirubin Negative Urine Urobilinogen 1 H Ur Leukocyte Esterase 500 H Urine RBC > 100 SEEN Urine WBC 10-25 SEEN Ur Squamous Epith Cells 0 SEEN Urine Bacteria 0 SEEN Urine Mucus 0 SEEN Urine Collection Time Cancelled Timed Urine Volume Cancelled Ur Total Protein 24 Hr Cancelled Urine Total Protein Cancelled Radiography Chest X-Ray - ED: 1 View, Read by ED Physician and Read by Radiologist Diagnostic Testing: Clinical Impression(s) from Imaging Studies Chest X-Ray 07/06/24 15:15 IMPRESSION: Right lung base atelectasis. Reading [facility] Discharge Plan Triage Chief Complaint: General Illness ED Provider: Amado Anderson Dx/Rx/DC Orders Clinical Impression: Generalized weakness, SOB (shortness of breath), UTI (urinary tract infection) Instructions: ED Dyspnea, ED Bladder Infection, Male (Adult), ED Weakness Uncertain Cause Prescriptions: New cephalexin 500 mg capsule 500 mg PO Q12 Qty: 14 0RF No Action nitroglycerin [Nitrostat] 0.4 mg tablet, sublingual 0.4 mg SUBLINGUAL Q5-15M PRN (Reason: Chest Pain) Patient Comments: pt. states he has never had to take it atorvastatin 20 mg tablet 20 mg PO QHS pantoprazole 40 mg tablet,delayed release (DR/EC) 40 mg PO DAILY acetaminophen [Tylenol] 325 mg tablet 650 mg PO Q6H PRN (Reason: Breakthrough Pain, Mild) ferrous sulfate 324 mg (65 mg iron) tablet,delayed release (DR/EC) 324 mg PO QDAY mesalamine 1,000 mg suppository 1,000 mg [place] Q OTHER DAY levothyroxine 25 mcg tablet 25 mcg PO QDAY polyethylene glycol 3350 [Miralax] 17 gram/dose powder 17 g PO QDAY PRN calcium carbonate [Tums] 200 mg calcium (500 mg) tablet,chewable 200 mg PO BID guaifenesin 100 mg/5 mL liquid 200 mg PO Q4H PRN balsalazide 750 mg capsule 2,250 mg PO TID levocetirizine 5 mg tablet 5 mg PO QHS Patient Comments: TAKE 1 TABLET BY MOUTH EVERYDAY AT BEDTIME PreserVision AREDS-2 250-90-40-1 mg capsule 1 tab PO BID aspirin 81 mg Tablet,Chewable 81 mg PO BREAKFAST Qty: 0 0RF Eliquis 5 mg tablet 2.5 mg PO BID Patient Comments: Patient took himself off last Wednesday due to bleeding. amiodarone 200 mg tablet 100 mg PO QDAY Qty: 90 3RF metoprolol tartrate 25 mg tablet 25 mg PO BID Qty: 180 3RF Primary Care Provider: Marcelo Mccullough Chi Referrals: Marcelo Mccullough Chi, MD [Primary Care Provider] - 3-5 Days if not improving Activity Restrictions/Additional Instructions: Antibiotics as directed. Follow-up with your primary care provider. Return with increased shortness of breath, new or worsening symptoms. Print Language: Thai Disposition Disposition: Home, Self Care What to do if you have Problems For any increased pain, shortness of breath, bleeding, nausea or vomiting, chestpain, or any unexpected problems, contact your Primary Care Provider. Call [facility] ([phone]) or report to the closest Emergency Room. Call 911 if necessary. 07/06/24 1650 <Electronically signed by Amado Anderson MD> Cosigner Signature (if applicable): CC: Dr. Marcelo Mccullough MD ~ Signed [facility] Work Phone: [phone] 860-190102-24-2025 Evaluation note* Diagnosis Onset Date Resolution Status Admit Date Fatigue acute May 15, 2024 9:45am Atherosclerosis of coronary artery of [place] heart without angina pectoris chronic May 15 025 9:45am Current use of nursing home anticoagulation chronic May 15 9:45am Essential (primary) hypertension chronic May 15 9:45am History of DVT (deep vein thrombosis) chronic May 15 9:45am Hyperlipidemia chronic April 232024 9:45am Paroxysmal atrial fibrillation chron ic May 15, 2024 9:45am Chronic deep vein thrombosis (DVT) of both lower extremities acute July 19, 2024 9:02am Leg edema acute July 19 9:02am Lymphedema acute July 19 9:02am Venous stasis of both lower extremities acute July 19, 2024 9:02am History of DVT (deep vein thrombosis) chronic July 19, 2024 9:02am Acute bronchitis acute July 20, 2024 4:19pm [facility] Services Work Phone: [phone]) 201-911902-24-2025 Evaluation note* Diagnosis Onset Date Resolution Status Admit Date Fatigue acute May 15, 2024 9:45am Atherosclerosis of coronary artery of [place] heart without angina pectoris chronic May 15, 025 9:45am Current use of nursing home anticoagulation chronic May 15, 2 025 9:45am Essential (primary) hypertension chronic May 15, 025 9:45am History of DVT (deep vein thrombosis) chronic May 15 025 9:45am Hyperlipidemia chronic April 232024 9:45am Paroxysmal atrial fibrillation chron ic May 15, 2024 9:45am Chronic deep vein thrombosis (DVT) of both lower extremities acute July 19, 2024 9:02am Leg edema acute July 19 9:02am Lymphedema acute July 19 9:02am Venous stasis of both lower extremities acute July 19, 2024 9:02am History of DVT (deep vein thrombosis) chronic July 19, 2024 9:02am Acute bronchitis acute July 20, 2024 4:19pm Atherosclerosis of coronary artery of [place] heart without angina pectoris chronic August 03, 2024 8 :25am Essential (primary) hypertension chronic August 03, 2024 8 :25am History of DVT (deep vein thrombosis) chronic August 03, 2024 8 :25am Hyperlipidemia chronic August 03, 2024 8:25am Paroxysmal atrial fibrillation chron ic August 03, 2024 8:25am [facility] Work Phone: [phone] NoteHNO ID: [id number] Author: KAYLIE BETTENCOURT MA Service: ? 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 Kaylie Bettencourt [facility] History of Present illness Narrative* Kaylie Bettencourt MA - 04/19/2024 2:37 PM EST No cardiac complaints today. Kaylie Bettencourt MA * Andrew Wadsworth MD - 04/19/2024 2:20 PM EST PRIMARY CARE PHYSICIAN: Marcelo Mccullough MD [address] [place] [address] REFERRING PHYSICIAN: Dee Ku [address] [facility] [address] Patient Care Team: Marcelo Mccullough Chi as PCP - General (Gerontology) Erick Beltran MD as Specialty House Visitor (Gastroenterology) Tyson Miller MD as Specialty House Visitor (Cardiology) Dee Ku APRN.CARMEN as Nurse Practitioner (Cardiology) CHIEF COMPLAINT: Evaluation of arrhythmia HISTORY OF PRESENT ILLNESS: Mr. Cordero is a 83 year old male who presents today for evaluation of atrial fibrillation, accompanied by his daughter and son-in-law. Mr. Cordero has experienced about 4 episodes of atrial fibrillationsince February 2022. A second episode of atrial fibrillation occurred in October 2022. He had symptoms with tachycardia, including palpitations and lightheadedness. He presented to ER, admitted to [facility]. He had electrical cardioversion but despite 4 attempts failed to restore sinus rhythm. He was treated with IV medications, including possibly amiodarone at that point. His daughter has very detailed notes, actually written log, of the events over time. We reviewed those notes in detail. The atrial fibrillation spontaneously converted to sinus rhythm. He was treated with oral amiodarone. He was not on the amiodarone for very long, he had side effects evidently. They were unsure of when the atrial fibrillation was discontinued. He did have recurrent atrial fibrillation a couple ofmonths later in December 2022. Admitted to [facility], spontaneously converted back to sinus rhythm. He did not have another episode of atrial fibrillation until over a year later in 02/2024. Heevidently had electrical cardioversions x 3 attempts but these were unsuccessful to restore sinus rhythm. He was treated again with amiodarone. He has been experiencing dizziness, mental sluggishnessand there is question about whether this is due to side effect from amiodarone. On 04/11/2024 the amiodarone dose was reduced to 100 mg daily. He has been treated with Eliquis for the past couple years, had been on Eliquis prior to the diagnosis of the atrial fibrillation, on oral anticoagulation therapy for DVT (about 1998). However, he stopped Eliquis 10/2023 due to rectal bleeding. He states he has been found to have Crohns colitis documented by sigmoidoscopy. He has noticed some recurrent rectal bleeding recently even off of anticoagulation, just taking low dose aspirin. He is referred for consideration of the management options for the atrial fibrillation and also the options for stroke prevention, specifically the option of Watchman left atrial appendage closure. I have confirmed and edited as necessary, the PFSH and ROS obtained by others. 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 04/12/2024 USP current use of antiarrhythmic drug 04/12/2024 NSTEMI (non-ST elevated myocardial infarction) ([facility]) Other specified glaucoma laser both eyes Other ulcerative colitis Paroxysmal atrial fibrillation (HCC) Persistent atrial fibrillation (HCC) 04/12/2024 PUD (peptic ulcer disease) PVD (peripheral vascular disease) ([facility]) Status post primary angioplasty with coronary stent 04/12/2024 PAST SURGICAL HISTORY Procedure Laterality Date COLONOSCOPY FLX DX W/COLLJ SPEC WHEN PFRMD 2014 INSERT INTRACORONARY STENT 10/05/2016 PCI/TAMIKO to proximal RCA; [facility] LEFT HEART CATH,PERCUTANEOUS 02/28/2024 PAST SURGICAL HISTORY OF back surgery-sciatica x 2 PAST SURGICAL HISTORY OF laser both eyes glaucoma SOCIAL HISTORY Social History Tobacco Use Smoking status: Former Smokeless tobacco: Former Types: Chew Quit date: 1984 Tobacco comments: 1981- Substance Use Topics Alcohol use: No Drug use: Never FAMILY HISTORY Problem Relation Age of Onset Heart Father Heart Paternal Grandfather ALLERGIES: ALLERGIES Allergen Reactions Albuterol Sulfate Other: See Comments A-fib Digoxin Other: See Comments Dizziness MEDICATIONS: vit C/E/Zn/coppr/lutein/zeaxan (PRESERVISION AREDS-2 ORAL) Take 1 capsule by mouth two times a day. nitroglycerin sublingual (NITROQUICK) 0.4 mg SL tablet Dissolve 0.4 mg under the tongue every 5 minutes as needed for chest pain. ferrous sulfate 325 mg (65 mg iron) EC tablet Take 325 mg by mouth once daily. levothyroxine (SYNTHROID) 25 mcg tablet Take 1 tablet by mouth every afternoon. amiodarone (PACERONE) 200 mg tablet Take 100 mg by mouth once daily. atorvastatin (LIPITOR) 20 mg tablet Take 20 mg by mouth daily at bedtime. budesonide 9 mg TaDE Take 1 tablet by mouth every afternoon. levocetirizine 5 mg tablet Take 5 mg by mouth daily at bedtime. metoprolol tartrate, short acting, (LOPRESSOR) 25 mg tablet Take 25 mg by mouth two times a day. mesalamine (CANASA) 1,000 mg suppository INSERT 1 SUPP RECTALLY EVERY DAY AT BEDTIME aspirin 81 mg cap Take 1 capsule by mouth once daily. pantoprazole sodium(PROTONIX 40 MG TAB) Take 40 mg by mouth once daily. balsalazide disodium(COLAZAL 750 MG CAP) Take 3 capsules by mouth three times a day. REVIEW OF SYSTEMS: Review of Systems Constitutional: Positive for malaise/fatigue. Negative for chills and fever. Respiratory: Positive for shortness of breath. Negative for cough, hemoptysis and sputum production. Cardiovascular: Positive for leg swelling. Negative for chest pain, palpitations, orthopnea and PND. Gastrointestinal: Positive for blood in stool. Negative for abdominal pain, melena, nausea and vomiting. Genitourinary: Negative for dysuria, flank pain and hematuria. Neurological: Negative for seizures and loss of consciousness. PHYSICAL EXAMINATION: BP 158/72 Pulse 55 Ht 5' 2 (1.58m) Wt 150 lb (68.0kg) SpO2 96% BMI 27.43 kg/(m^2). Physical Exam Vitals reviewed. Constitutional: General: He is not in acute distress. HENT: Head: Normocephalic and atraumatic. Cardiovascular: Rate and Rhythm: Regular rhythm. Bradycardia present. Heart sounds: S1 normal and S2 normal. Murmur heard. Systolic murmur is present with a grade of 1/6. No friction rub. Comments: +ulceration lower left anterior leg with some surrounding erythema Pulmonary: Effort: Pulmonary effort is normal. No respiratory distress. Breath sounds: Normal breath sounds. No wheezing, rhonchi or rales. Musculoskeletal: Right lower le+ Pitting Edema present. Left lower le+ Pitting Edema present. Skin: General: Skin is warm and dry. Neurological: Mental Status: He is alert and oriented to person, place, and time. Psychiatric: Mood and Affect: Mood normal. Behavior: Behavior normal. Thought Content: Thought content normal. CARDIOVASCULAR MEDICINE TESTING: Electrocardiogram: Sinus bradycardia 55 bpm; normal conduction intervals (NY 172 ms, QRS 92 ms); QTc 461 ms; heart rate, conduction intervals and QTc appropriate on amiodarone 100 mg daily I have personally reviewed the Electrocardiogram. 1. Persistent atrial fibrillation (HCC) - ICD9: 427.31, ICD10: I48.19 (primary diagnosis) 2. 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 use of antiarrhythmic drug - ICD9: V58.69, ICD10: Z79.899 3. 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 use of amiodarone - ICD9: V58.69, ICD10: Z79.899 4. At risk for stroke - ICD9: V15.89, ICD10: Z91.89 5. Anticoagulant long-term use - ICD9: V58.61, ICD10: Z79.01 6. At risk for bleeding associated with anticoagulants - ICD9: V15.89, ICD10: Z91.89 7. History of GI bleed - ICD9: V12.79, ICD10: Z87.19 8. Atherosclerosis of [place] coronary artery of [place] heart without angina pectoris - ICD9: 414.01, ICD10: I25.10 9. Status post primary angioplasty with coronary stent - ICD9: V45.82, ICD10: Z95.5 CHADS2-Vasc Score Breakdown 3 Total Score 2 Age >= 75 years old 1 History of vascular disease HAS-BLED score: 3 points (prior major bleeding, age > 65 years, medication use predisposing to bleeding -- ASA) MODIFIED JUNG SCORE: 3 = Moderate disability: requires some help; walks w/o assistance. IMPRESSION: Mr. Cordero has atrial fibrillation, seems to have been symptomatic although unclear if he would havesubstantial symptoms with good rate control. The episodes described when he presented to ER he was in tachycardia. One question then would be whether he would have substantial symptoms during rate controlled atrial fibrillation. He is presently on amiodarone which will provide not only antiarrhythmic drug (arrhythmia suppression) effect but also rate control (AV conduction suppression) effect. Atthe current low dosage of 100 mg daily he is not likely to have problems with side effects and veryunlikely to have issues with the potential organ toxic side effects such as liver, thyroid, pulmonary toxicities. At his advanced age this antiarrhythmic drug therapy is probably the best treatment option. Atrial fibrillation catheter ablation would carry some risk, probably not high but at least intermediate rather than low, for serious complications at his age. For stroke prevention, he does have risk for stroke ([id number] score of 3 points) so oral anticoagulation therapy is indicated in the absence of competing risk for bleeding. He has had recurrent GI bleeding, although not severe andnot requiring blood transfusion, but still occurring even off the Eliquis. If he cannot be treated with long-term oral anticoagulation therapy for stroke prevention, but can take short-term (either OAC + ASA or Plavix + ASA) then he could be considered a candidate for Watchman left atrial appendageclosure device as an alternative. This procedure would represent similar if not less risk to that of the intracoronary stent(s) that he had performed about 8 years ago. One could consider doing atrial fibrillation concomitantly with Watchman implant, but I think this would result in a procedure that has too much combined risk for serious complications at his advanced age. So all considered, a very challenging situation without clearly superior options. As stated, I think at his age I would favor more conservative rhythm control strategy with giving low dose amiodaronea chance to work, as it seems to be the best option from risk:benefit standpoint. Stroke preventionis more challenging issue. Is the rectal bleeding sufficiently severe to avoid oral anticoagulationtherapy? If so, he seems to be appropriate candidate for Watchman device from the procedural risk:benefit standpoint. He would need to be able to take one of the above stated regimens post implant --- either OAC + ASA or Plavix + ASA -- for at minimum 6 weeks post Watchman implant. If the rectal ble eding can be sufficiently controlled to allow for OAC then that would be ideal. He is 68 kg so justbarely above the 60 kg cutoff to have a second factor in addition to age > 80 years to qualify for reduced dosage Eliquis 2.5 mg twice daily. From the available medical records it seems he was indeed already on the reduced dosage and still had issues. I had a detailed discussion with Mr. Cordero and his family regarding my evaluation and recommendations. After our discussion, Mr. Cordero and his family expressed his understanding and I answered all questions to their apparent satisfaction. I told them I would communicate with his other physicians and perhaps among all of us we can come to some type of consensus. PLAN AND RECOMMENDATIONS: Continue with current plan of care from EP standpoint. Consider atrial fibrillation management options as outlined above. Andrew Wadsworth MD 04/19/2024 Medical Decision Making: Problems: Moderate: New problem with uncertain prognosis Data: Unique source(s) for external note(s) reviewed: 3+ Unique test result(s) reviewed: 3+ Unique test(s) ordered: 1 Risk: Moderate: Moderate risk from testing/treatment, Drug management and Decision on minor surgery w/ risk factors Medical Decision Making Level: 4 - Moderate [facility] NoteHNO ID: [id number] Author: ANDREW WADSWORTH MD Service: ? Author Type: Physician Type: Progress Notes Filed: 04/19/2024 18:08 Note Text: PRIMARY CARE PHYSICIAN: Marcelo Mccullough MD [address] [place] [address] REFERRING PHYSICIAN: Dee Ku [address] [facility] [id number] Patient Care Team: Marcelo Mccullough Chi as PCP - General (Gerontology) Erick Beltran MD as Specialty House Visitor (Gastroenterology) Tyson Miller MD as Specialty House Visitor (Cardiology) Dee Ku APRN.CARMEN as Nurse Practitioner (Cardiology) CHIEF COMPLAINT: Evaluation of arrhythmia HISTORY OF PRESENT ILLNESS: Mr. Cordero is a 83 year old male who presents today for evaluation of atrial fibrillation, accompanied by his daughter and son-in-law. Mr. Cordero has experienced about 4 episodes of atrial fibrillation since February 2022. A second episode of atrial fibrillation occurred in October 2022. He had symptoms with tachycardia, including palpitations and lightheadedness. He presented to ER, admitted to [facility]. He had electrical cardioversion but despite 4 attempts failed to restore sinus rhythm. He was treated with IV medications, including possibly amiodarone at that point. His daughter has very detailed notes, actually written log, of the events over time. We reviewed those notes in detail. The atrial fibrillation spontaneously converted to sinus rhythm. He was treated with oral amiodarone. He was not on the amiodarone for very long, he had side effects evidently. They were unsure of when the atrial fibrillation was discontinued. He did have recurrent atrial fibrillation a couple of months later in December 2022. Admitted to [facility], spontaneously converted back to sinus rhythm. He did not have another episode of atrial fibrillation until over a year later in 02/2024. He evidently had electrical cardioversions x 3 attempts but these were unsuccessful to restore sinus rhythm. He was treated again with amiodarone. He has been experiencing dizziness, mental sluggishness and there is question about whether this is due to side effect from amiodarone. On 04/11/2024 the amiodarone dose was reduced to 100 mg daily. He has been treated with Eliquis for the past couple years, had been on Eliquis prior to the diagnosis of the atrial fibrillation, on oral anticoagulation therapy for DVT (about 1998). However, he stopped Eliquis 10/2023 due to rectal bleeding. He states he has been found to have Crohns colitis documented by sigmoidoscopy. He has noticed some recurrent rectal bleeding recently even off of anticoagulation, just taking low dose aspirin. He is referred for consideration of the management options for the atrial fibrillation and also the options for stroke prevention, specifically the option of Watchman left atrial appendage closure. I have confirmed and edited as necessary, the PFSH and ROS obtained by others. 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 04/12/2024 NSTEMI (non-ST elevated myocardial infarction) (HCC) Other specified glaucoma laser both eyes Other ulcerative colitis Paroxysmal atrial fibrillation (HCC) Persistent atrial fibrillation (HCC) 04/12/2024 PUD (peptic ulcer disease) PVD (peripheral vascular disease) (HCC) Status post primary angioplasty with coronary stent 04/12/2024 PAST SURGICAL HISTORY Procedure Laterality Date COLONOSCOPY FLX DX W/COLLJ SPEC WHEN PFRMD 2014 INSERT INTRACORONARY STENT 10/05/2016 PCI/TAMIKO to proximal RCA; [facility] LEFT HEART CATH,PERCUTANEOUS 02/28/2024 PAST SURGICAL HISTORY OF back surgery-sciatica x 2 PAST SURGICAL HISTORY OF laser both eyes glaucoma SOCIAL HISTORY Social History Tobacco Use Smoking status: Former Smokeless tobacco: Former Types: Chew Quit date: 1984 Tobacco comments: Substance Use Topics Alcohol use: No Drug use: Never FAMILY HISTORY Problem Relation Age of Onset Heart Father Heart Paternal Grandfather ALLERGIES: ALLERGIES Allergen Reactions Albuterol Sulfate Other: See Comments A-fib Digoxin Other: See Comments Dizziness MEDICATIONS: vit C/E/Zn/coppr/lutein/zeaxan (PRESERVISION AREDS-2 ORAL) Take 1 capsule by mouth two times a day. nitroglycerin sublingual (NITROQUICK) 0.4 mg SL tablet Dissolve 0.4 mg under the tongue every 5 minutes as (more content not included)...[facility] Evaluation note* Diagnosis Onset Date Resolution Status Admit Date Atherosclerosis of coronary artery of [place] heart without angina pectoris chronic March 17 10:20am Current use of intermission coordinator anticoagulation chronic March 17 10:20am Essential (primary) hypertension chronic March 17 10:20am History of DVT (deep vein thrombosis) chronic March 17 10:20am Hyperlipidemia chronic February 202023 10:20am Paroxysmal atrial fibrillation chron ic March 17, 2024 10:20am Fatigue acute May 15, 2024 9:45am Atherosclerosis of coronary artery of [place] heart without angina pectoris chronic May 15 9:45am Current use of intermission coordinator anticoagulation chronic May 15, 9:45am Essential (primary) hypertension chronic May 15 9:45am History of DVT (deep vein thrombosis) chronic May 15 9:45am Hyperlipidemia chronic April 232024 9:45am Paroxysmal atrial fibrillation chron ic May 15, 2024 9:45am [facility] Work Phone: 1(482) 584-669312-10-2024 [facility] Medical Records Department [address] [place] [address] Discharge Summary 02/29/24 1204 MR#: [id number] Acct: [id number] Name: IRWIN CORDERO Rep #: [id number] : [id number] 83 From: Mariana Rich DO PCP: Dr. Marcelo Mccullough MD Status:ADM EULA Location: [place] [address] Providers Date of Admission: 02/28/24 Primary Care Physician: Dr. Marcelo Mccullough MD Consultations 02/28/24 07:39 Consult: Cardiology Routine Consulting Provider: Tyson Miller Reason for Consult: A-fib with RVR EMERGENT Consult: No MD Notified: Yes Date Notified: 02/28/24 Time Notified: 07:39 Method of Notification: Text Reason For Visit: AFIB with RVR refractory to medical electrical Diagnosis Discharge Diagnosis (1) Paroxysmal atrial fibrillation with rapid ventricular response: Status: Acute Code(s): I48.0 - Paroxysmal atrial fibrillation (2) Chest pain: Status: Resolved Code(s): R07.9 - Chest pain, unspecified (3) Hypertension: Status: Chronic Code(s): I10 - Essential (primary) hypertension Qualifiers: Hypertension type: unspecified Qualified Code(s): I10 - Essential (primary) hypertension (4) Atherosclerosis of coronary artery of [place] heart without angina pectoris: Status: Acute Code(s): I25.10 - Atherosclerotic heart disease of [place] coronary artery without angina pectoris Qualifiers: Coronary Disease-Associated Artery/Lesion type: [place] artery Qualified Code(s): I25.10 - Atherosclerotic heart disease of [place] coronary artery without angina pectoris (5) Hyperlipidemia: Status: Chronic Code(s): E78.5 - Hyperlipidemia, unspecified Qualifiers: Hyperlipidemia type: unspecified Qualified Code(s): E78.5 - Hyperlipidemia, unspecified Medications at Discharge Home Medications nitroglycerin 0.4 mg sublingual tablet (Nitrostat) 0.4 mg sublingual Q5-15M PRN Chest Pain 04/06/17 balsalazide 750 mg capsule 2,250 mg PO TID stomach 07/11/19 pantoprazole 40 mg tablet,delayed release 40 mg PO DAILY stomach 01/26/20 acetaminophen 325 mg tablet (Tylenol) 650 mg PO Q6H PRN Breakthrough Pain, Mild 05/08/21 albuterol sulfate 90 mcg/actuation aerosol inhaler (Ventolin HFA) 2 puff inhalation Q4H PRN PRN Wheezing ##1 10/26/22 levocetirizine 5 mg tablet 5 mg PO QHS 01/18/23 atorvastatin 20 mg tablet 10 mg PO QHS cholesterol 03/24/23 apixaban 5 mg tablet (Eliquis) 2.5 mg PO BID blood thinner 10/28/23 budesonide 9 mg tablet,delayed and extended release 9 mg PO DAILY 02/28/24 vit C 250 mg-vit E 90 mg-zinc 40 mg-copper 1 [id number] capsule (PreserVision AREDS-2) 1 tab PO BID 02/28/24 amiodarone 200 mg tablet 200 mg PO TID #65 tabs 02/29/24 aspirin 81 mg chewable tablet 81 mg PO BREAKFAST #0 tabs 02/29/24 metoprolol tartrate 25 mg tablet 25 mg PO BID #60 tabs 02/29/24 Hospital Course Summary of Care Provided Hospital Course: Patient is an 83-year-old white male who presented to the emergency department at [facility] on 02/28/2024 with a chief complaint of chest discomfort that was located in his central chest and radiated to his arms and back. He called his sons when this occurred and they recommended him coming to the emergency department for evaluation. Patient did report that he was diagnosed with an upper respiratory infection a few days previously and went to an urgent care at which time he was placed on antibiotics as well as albuterol and he was found to be in A- fib on presentation. Patient thought the albuterol triggered his atrial fibrillation with RVR. Patient has known history of A-fib but typically is sinus rhythm. His last cardiac catheterization was in 2017 at which time he had PCI of the RCA. His LAD had a questionable lesion for which she underwent stress testing and this did not demonstrate any evidence of ischemia and his circumflex had no identifiable disease. At baseline he is on aspirin and Eliquis. He has had previous issues with A-fib with RVR and had successful cardioversion. EKG on presentation showed A-fib with RVR and ST depression in leads V4 through V6. He underwent 3 cardioversions in the emergency department however failed cardioversion and was placed on Cardizem drip. He was admitted to the telemetry floor and cardiology was consulted. Given his respiratory symptoms a respiratory viral panel was ordered and he was found to be rhinovirus positive. Given the results of his viral panel we will discontinue antibiotics and continue supportive care. Cardiology evaluated the patient took him to [facility] on 02/28/2024 at which time he was found to have right dominant coronary vasculature with left main showing mild luminal L irregularities, medium sized LAD with mild calcification at 30 to 40%, mild diffuse disease in his circumflex and right coronary artery disease showing diffuse 30 to 40% disease. He was converted to beta-liang and amiodarone in the h (more content not included)...[facility]08-23-2024 Evaluation + Plan noteExtracted from: Title:Clinical Document Author:ERICK BELTRAN Date:11/12/23 [place] ADMISSION HISTORY AN D PHYSICIAL CHIEF COMPLAINT: HISTORY OF PRESENT ILLNESS: REVIEW OF SYSTEMS: ACTIVE PROBLEMS: (6) Atrial fibrillation (47351757) Dysphagia (82637409) GERD (gastroesophageal reflux disease) (766775267) Hiatal hernia (612880240) AK (myocardial infarction) (40196662) Ulcerative colitis (348457695) MEDICATIONS: Active Inpt Meds: None Active PRN Meds: None One Time Meds: None Active IV Meds: Lactated Ringers Infusion 1,000 mL (LR 1,000 mL) Start: 11/12/23 7:48:00 EDT, Rate: 50 mL/hr, 11/12/23 7:48:00 EDT ALLERGIES: (1) No Known Medication Allergies FAMILY HISTORY: SOCIAL HISTORY: PHYSICAL EXAM: VITALS: GarzraRnxkDDGqqdqMESfN5TAI9WccnAp(kg) 11/11 07:5936.5--[id number]/23 69.0 24 Hr Tmax: 36.5 at 11/11 07:59 36 Hr Tmax: 36.5 at 11/11 07:59 Vital Signs are the last 5 in the past 48 hours. Weights display the last 5 within 7 days. Initial Wt: 11/11 69.0 kg 152 lb Current Wt: 11/11 69.0 kg 152 lb GENERAL: HEENT: CARDIOVASCULAR: RESPIRATORY: ABDOMEN: EXREMETIES: NEUROLOGICAL: PSYCHIATRIC: LABS: No 36hr Lab Data DIAGNOSTICS: IMPRESSION: PLAN: History and Physical Update I have examined the patient; reviewed the H&P and there are no changes to the H&P unless noted below. [facility] 08-23-2024 Nurse Discharge summary 1000- Dr Beltran in to talk with pt and family, pt was instructed that he was not to resume his Eliquis until Wednesday and that he (Dr Beltran) needed to talk with his PCP (Jamel) about the possibility ofstaying off the blood thinner even longer. Pt and family seemed to understand this and all questions were answered. A Rx was sent with the pt to [facility] and begin today. All verbal instructions were hand written onto the going home instructions for extra clarification. [facility]08-23-2024 Hospital Discharge instructions Patient Education 11/12/2023 09:14:21 Colon Biopsy, Care After Colon Biopsy, Care After This sheet gives you information about how to care for yourself after your procedure. Your health care provider may also give you more specific instructions. If you have problems or questions, contact your health care provider. What can I expect after the procedure? After the procedure, it is common to have: A small amount of blood in your stool for 24 hours after the procedure. Some gas. Mild cramping or bloating in your abdomen. Follow these instructions at home: General instructions For the first 24 hours after the procedure: ?Do not drive or use machinery. ?Do not sign important documents. ?Do not drink alcohol. ?Do your regular daily activities at a slower pace than normal. ?Eat soft, edsf-bg-vwwiia foods. ?Rest often. Take txfs-edm-jrgzxje or prescription medicines only as told by your health care provider. Keep all follow-up visits as told by your health care provider. This is important. Relieving cramping and bloating Try walking around when you have cramps or feel bloated. Put heat on your abdomen as told by your health care provider. Use a heat source that your health care provider recommends, such as a moist heat pack or a heating pad. ?Place a towel between your skin and the heat source. ?Leave the heat on for 20 30 minutes. ?Remove the heat if your skin turns bright red. This is especially important if you are unable to feel pain, heat, or cold. You may have a greater risk of getting burned. Eating and drinking Drink enough fluid to keep your urine pale yellow. Return to your normal diet as instructed by your health care provider. Avoid heavy or fried foods that are hard to digest. Avoid drinking alcohol for as long as told by your health care provider. Contact a health care provider if: You have blood in your stool 2 3 days after the procedure. Get help right away if: You have more than a small spotting of blood in your stool. You pass large blood clots in your stool. Your abdomen is swollen. You have nausea or vomiting. You have a fever. You have increasing abdominal pain that is not relieved with medicine. Summary After the procedure, it is common to have mild cramping and bloating in the abdomen. Do not drive for 24 hours after the procedure. Try walking around when you have cramps or feel bloated. This information is not intended to replace advice given to you by your health care provider. Make sure you discuss any questions you have with your health care provider. Document Released: 08/17/2017 Document Revised: 02/18/2018 Document Reviewed: 08/17/2017 [employer] Patient Education 2020 [employer]. 11/12/2023 09:14:07 Moderate Conscious Sedation, Adult, Care After Moderate Conscious Sedation, Adult, Care After These instructions provide you with information about caring for yourself after your procedure. Your health care provider may also give you more specific instructions. Your treatment has been plannedaccording to current medical practices, but problems sometimes occur. Call your health care provider if you have any problems or questions after your procedure. What can I expect after the procedure? After your procedure, it is common: To feel sleepy for several hours. To feel clumsy and have poor balance for several hours. To have poor judgment for several hours. To vomit if you eat too soon. Follow these instructions at home: For at least 24 hours after the procedure: Do not: ?Participate in activities where you could fall or become injured. ?Drive. ?Use heavy machinery. ?Drink alcohol. ?Take sleeping pills or medicines that cause drowsiness. ?Make important decisions or sign legal documents. ?Take care of children on your own. Rest. Eating and drinking Follow the diet recommended by your health care provider. If you vomit: ?Drink water, juice, or soup when you can drink without vomiting. ?Make sure you have little or no nausea before eating solid foods. General instructions Have a responsible adult stay with you until you are awake and alert. Take blvx-add-rjigrmi and prescription medicines only as told by your health care provider. If you smoke, do not smoke without supervision. Keep all follow-up visits as told by your health care provider. This is important. Contact a health care provider if: You keep feeling nauseous or you keep vomiting. You feel light-headed. You develop a rash. You have a fever. Get help right away if: You have trouble breathing. This information is not intended to replace advice given to you by your health care provider. Make sure you discuss any questions you have with your health care provider. Document Released: 12/27/2013 Document Revised: 02/18/2018 Document Reviewed: 06/27/2016 [employer] Patient Education 2020 [employer]. Follow Up Care 10/21/2023 10:21:10 With:ERICK BELTRAN MD Address: [address] [place], [place] [address] [address] [address] [phone] When: Unknown Comments:office will call with results of pathology [facility] 08-23-2024 Note Date of Service November 12, 2023 Procedure Name Flexible sigmoidoscopy with biopsy of mucosa Consent Taken before procedure Indication With rectal bleeding and chronic ulcerative colitis Location [facility] Pre-Procedure Exam Rectal bleeding Procedural Sedation Anesthesia provided a MAC Technique Patient was brought to the endoscopy suite and placed left shoulder down. Scope was passed into therectum there was friability and inflammation of the rectal mucosa. This pattern persisted for about10 cm. Up into the sigmoid colon there was diverticulosis of myochosis scope was advanced about 60 cm above the sigmoid and there were no abnormalities seen. Back down to the left colon there was dive rticulosis of myochosis she will plan on mucosa was unremarkable 10 cm where the inflammation was noted several biopsies were taken of the rectal mucosa for pathology was decompressed and the patienttolerated the procedure. Post-Procedure Exam Flexible sigmoidoscopy with biopsy Findings Inflammation of the rectal mucosa Complications None apparent Assessment/Plan Orders: Lactated Ringers Infusion 1,000 mL(LR 1,000 mL), 1000 mL, Intravenous Bedrest, 11/12/23 9:11:00 EDT, Strict, continuous, Constant order, Lying on side until alert or as ordered Bedrest, 11/12/23 9:11:00 EDT, Strict, continuous, Constant order, Lying on side until alert or as ordered Call Parameters, 11/12/23 9:11:00 EDT, Notify for vomiting, severe pain, signs of bleeding, severe abdominal pain, distention or rigidity, Constant order Communication Order (scheduled), 11/12/23 7:48:00 EDT, Once, 11/12/23 7:48:00 EDT, Pathology TissueRequest Communication Order (scheduled), 11/12/23 7:48:00 EDT, Once, 11/12/23 7:48:00 EDT, Urine Test or waiver for women of child bearing age Communication Order (scheduled), 11/12/23 7:48:00 EDT, Once, 11/12/23 7:48:00 EDT, Fasting Blood Sugar priot to procedure of patient is diabetic Diet Order, 11/12/23 9:11:00 EDT, Start Meal: Next meal, Clear Liquid Diet, Post exam or after gag reflex returns if EGD, Constant Order, : N/A, : N/A Discharge, 11/12/23 7:48:00 EDT, Discharged to: Home, when able to ambulate and after being seen byphysician Discharge Activity, NO activity restrictions, 11/12/23 9:11:00 EDT Discharge Diet, Follow the post-operative/post-procedure diet instructions provided by your physician's office., 11/12/23 9:11:00 EDT Discharge Wound Care, Follow the post-operative/post-procedure wound care instructions provided by your physician's office., 11/12/23 9:11:00 EDT Pathology Tissue Request, 11/12/23 9:05:00 EDT, Collected, Routine, Nurse Collect, AP Specimen, DISTAL SIGMOID RECTUM BIOPSY, SEE CHART, FLEXIBLE SIGMOIDOSCOPY, RECTAL BLEED, HISTORY OF COLITIS, RECTAL BLEED, HISTORY OF COLITIS, [id number] Post Procedure Assessment, 11/12/23 9:11:00 EDT, Stop Date 11/12/23 9:11:00 EDT, [facility] in [facility] Room until Subhash Score of 12 or Preprocedure Sign Consent, 11/12/23 7:48:00 EDT, Once, For EGD Vital Signs, 11/12/23 9:11:00 EDT, q15min, 1 hour(s), 11/12/23 10:00:00 EDT Vital Signs, 11/12/23 9:11:00 EDT, q30min, 1 hour(s), 11/12/23 10:00:00 EDT Vital Signs PRN, 11/12/23 9:11:00 EDT, PRN order Follow Up/Recommendation Follow-up the biopsies increase the patient's oral medication and add mesalamine suppositories to his regimen Digitally Signed by ERICK BELTRAN MD on 11/12/2023 09:17 AM [facility]08-23-2024 Summary of episode note Discharge Instructions Thank you for allowing [facility] to assist you with your healthcare needs. The following is importantdischarge information regarding your hospital visit. Your Care Team NYDIA MCCULLOUGH MD What to do next Follow Up Appointments Follow Up with ERICK BELTRAN MD Where:[address] [place] [address]- [phone] Additional Information: office will call with results of pathology Someone Will Contact You Regarding These Home Health Referrals No home referrals have been ordered for you. No one will call you. Allergies No Known Medication Allergies Medications Please ask your primary doctor or pharmacist before taking any other medication not listed, including over the counter drugs, herbal medications, vitamins and or supplements as they may interact withyour home medications. What How Much When Instructions [...] medication providers or retail pharmacies. Education Materials Colon Biopsy, Care After This sheet gives you information about how to care for yourself after your procedure. Your health care provider may also give you more specific instructions. If you have problems or questions, contact your health care provider. What can I expect after the procedure? After the procedure, it is common to have: A small amount of blood in your stool for 24 hours after the procedure. Some gas. Mild cramping or bloating in your abdomen. Follow these instructions at home: General instructions For the first 24 hours after the procedure: ? Do not drive or use machinery. ? Do not sign important documents. ? Do not drink alcohol. ? Do your regular daily activities at a slower pace than normal. ? Eat soft, xbuv-pz-yzbdpb foods. ? Rest often. Take qeld-pkr-ebpbnug or prescription medicines only as told by your health care provider. Keep all follow-up visits as told by your health care provider. This is important. Relieving cramping and bloating Try walking around when you have cramps or feel bloated. Put heat on your abdomen as told by your health care provider. Use a heat source that your health care provider recommends, such as a moist heat pack or a heating pad. ? Place a towel between your skin and the heat source. ? Leave the heat on for 20 30 minutes. ? Remove the heat if your skin turns bright red. This is especially important if you are unable to feel pain, heat, or cold. You may have a greater risk of getting burned. Eating and drinking Drink enough fluid to keep your urine pale yellow. Return to your normal diet as instructed by your health care provider. Avoid heavy or fried foods that are hard to digest. Avoid drinking alcohol for as long as told by your health care provider. Contact a health care provider if: You have blood in your stool 2 3 days after the procedure. Get help right away if: You have more than a small spotting of blood in your stool. You pass large blood clots in your stool. Your abdomen is swollen. You have nausea or vomiting. You have a fever. You have increasing abdominal pain that is not relieved with medicine. Summary After the procedure, it is common to have mild cramping and bloating in the abdomen. Do not drive for 24 hours after the procedure. Try walking around when you have cramps or feel bloated. This information is not intended to replace advice given to you by your health care provider. Make sure you discuss any questions you have with your health care provider. Document Released: 08/17/2017 Document Revised: 02/18/2018 Document Reviewed: 08/17/2017 [employer] Patient Education 2020 [employer]. Moderate Conscious Sedation, Adult, Care After These instructions provide you with information about caring for yourself after your procedure. Your health care provider may also give you more specific instructions. Your treatment has been plannedaccording to current medical practices, but problems sometimes occur. Call your health care provider if you have any problems or questions after your procedure. What can I expect after the procedure? After your procedure, it is common: To feel sleepy for several hours. To feel clumsy and have poor balance for several hours. To have poor judgment for several hours. To vomit if you eat too soon. Follow these instructions at home: For at least 24 hours after the procedure: Do not: ? Participate in activities where you could fall or become injured. ? Drive. ? Use heavy machinery. ? Drink alcohol. ? Take sleeping pills or medicines that cause drowsiness. ? Make important decisions or sign legal documents. ? Take care of children on your own. Rest. Eating and drinking Follow the diet recommended by your health care provider. If you vomit: ? Drink water, juice, or soup when you can drink without vomiting. ? Make sure you have little or no nausea before eating solid foods. General instructions Have a responsible adult stay with you until you are awake and alert. Take lwjm-mvx-pczwppj and prescription medicines only as told by your health care provider. If you smoke, do not smoke without supervision. Keep all follow-up visits as told by your health care provider. This is important. Contact a health care provider if: You keep feeling nauseous or you keep vomiting. You feel light-headed. You develop a rash. You have a fever. Get help right away if: You have trouble breathing. This information is not intended to replace advice given to you by your health care provider. Make sure you discuss any questions you have with your health care provider. Document Released: 12/27/2013 Document Revised: 02/18/2018 Document Reviewed: 06/27/2016 [employer] Patient Education 2020 [employer] Additional Information VACCINATE! IT SAVES LIVES! Members of the community who have not yet received the COVID-19 vaccine and would like to receive it can visit one of [facility] vaccine clinics. There are many vaccine clinic locations within the [facility]. For locations and available times, please visit https://gettheshot.coronavirus.[place].gov/. It is important to note that some COVID mobile vaccine clinics are held outdoors and may be canceled in rainy or stormy conditions. To learn more about pediatric vaccinations (ages 5-11), we invite you to visit the [facility] webpage. https://www.[facility].org/pages/9907-Bctqp-Xmqlikrsbuf-Zivfitccvz-Iabax-Zlm stions.htmlTo learn more about the COVID-19 vaccine, we invite you to visit the CDC website for a list of frequently asked questions.https://www.cdc.gov/coronavirus/2019-ncov/vaccines/faq.html [email or web address] Patient Portal Access Instructions: Stay connected with your healthcare team and access your personal medical information anytime with the [email or web address] Patient Portal. Please follow the directions below to create your [employer] account: 1.Access the email account you provided upon registration to the hospital/physician office.2.Look for an invitation email from [facility].3.Open the email and access the invitation link: AcceptInvitation to [employer].4.Fill in the required odom to create your account. To access your account, visit [employer]. Click the blue button labeled Access Patient Portal and then log in with the username and password that you created in the steps above. You will be able to view your test results, lab results, a summary of your visits, upcoming appointments and more. There is also a convenient messaging option where you can send secure messages to your p rovider. In addition, you will have the ability to download any documents or summaries to your computer and/or send the information securely to a physician. Remember that your healthcare information is confidential, so carefully consider who you will allowto register on the [facility] Patient Portal for access to your information. You can also access the [facility] on the [facility] and[facility]. Simply click on Patient Portal and then log into your account. If you would like to receive a full copy of your medical records, please contact the [facility] Medical Records Department by calling [phone], Wednesday through Wednesday between 8 a.m. and 4:30 p.m. HOW TO SAFELY DISPOSE OF PRESCRIPTION MEDICATIONS Please use one of the following methods to safely dispose of your unused medications. 1.Use a drug disposal kit: the drug disposal pouch allows you to safely discard your old and unuseddrugs. Ask your nurse to give you one when you are discharged.2.Visit a local take-back location: Many local pharmacies and police departments have programs that collect old and unwanted prescriptiondrugs. Call your local pharmacy or go to http://Code[employer].Clue App/0L5Pz9m to find one close to you.3.Make use of household items: Use cat litter or old coffee grounds to dispose medications if other options arenot available. Mix your drugs with these household products, seal them in an airtight container andthrow it into the garbage. Call [facility]: [phone] to be sure your drugs can be [...] a CHART COPY. Signatures Patient Education Materials Colon Biopsy, Care After Moderate Conscious Sedation, Adult, Care After Medication Leaflets My discharge plan and instructions have been reviewed and explained to me and I,IRWIN CORDERO understand my current condition and have read and understand these discharge instructions. I have received a written copy of the plan/instructions. If I have questions, I am aware that I should contact my doctor. Patient/Ophthalmologist Retina Specialist Signature: Date/Time: Relationship to Patient: Witness Name/Signature: Date/Time: [facility]08-23-2024 Anesthesiology Consult note Patient: IRWIN CORDERO Age: 83 years Sex: Male : 1940 Associated Diagnoses: None Author: JACQUIE ARCHER APRN-PARTNER MANAGER Assessment Postanesthesia assessment Vitals: Vital signs from flowsheet : Vital Signs 11/12/2023 9:05 EDT Heart Rate Monitored 63 bpm bpm Respiratory Rate - Anes 13 br/min br/min 11/12/2023 9:00 EDT Heart Rate Monitored 71 bpm bpm Respiratory Rate - Anes 12 br/min br/min Systolic Blood Pressure Non-Invasive 134 mmHg mmHg Diastolic Blood Pressure Non-Invasive 95 mmHg mmHg 11/12/2023 8:56 EDT Systolic Blood Pressure Non-Invasive 125 mmHg mmHg Diastolic Blood Pressure Non-Invasive 84 mmHg mmHg 11/12/2023 8:55 EDT Heart Rate Monitored 74 bpm bpm Respiratory Rate - Anes 0 br/min br/min 11/12/2023 7:59 EDT Temperature Tympanic 36.5 DegC LOW Apical Heart Rate 82 bpm Respiratory Rate 16 br/min Systolic Blood Pressure Non-Invasive 136 mmHg Diastolic Blood Pressure Non-Invasive 68 mmHg , Measurements from flowsheet . Mental status: alert & oriented x 4. Respiratory function: respirations are non-labored. Respiratory support: none. CV function: Normal rate. Cardiovascular support: none. Pain. Nausea status: see nursing documentation of medications. Postoperative hydration status: within normal limits. Digitally Signed by JACQUIE ARCHER on 11/12/2023 09:07 AM [facility]08-23-2024 Anesthesiology Consult note Patient: IRWIN CORDERO Age: 83 years Sex: Male : 1940 Associated Diagnoses: None Author: JACQUIE ARCHER Preoperative Information Time of last solid food intake: 11/12/2023 00:00:00 Time of last clear liquid intake: 11/12/2023 06:30:00 Anesthesia history Patient's history: negative. Family's history: negative. Health Status Allergies: Allergic Reactions (Selected) No Known Medication Allergies, Allergies (1) ActiveSeverityReaction No Known Medication AllergiesNone Documented Current medications: [...] Active Scheduled: (0) Continuous: (1) Lactated Ringers Infusion 1,000 mL 1,000 mL, Intravenous, 50 mL/hr PRN: (0) Problem list: Active Problems (6) Atrial fibrillation Dysphagia GERD (gastroesophageal reflux disease) Hiatal hernia AK (myocardial infarction) Ulcerative colitis Histories Past Medical History: No active or resolved past medical history items have been selected or recorded. Family History: Heart disease Father Procedure history: FS - Flexible sigmoidoscopy ([id number]) on 11/12/2023 at 83 Years. Cardioversion ([id number]) on 11/11/2022 at 82 Years. Colonoscopy ([id number]) in 2017 at 76 Years. Comments: 11/12/2023 8:08 Cora Jackson RN per pt Spinal decompression with discectomy ([id number]). Comments: 06/15/2022 9:39 Anuj Henry RN lumbar Social History: Social & Psychosocial Habits Alcohol 11/12/2023 Use: Never Substance Abuse 11/12/2023 Use: Never Tobacco 11/12/2023 Tobacco Use: Former smoker, quit more Comment: QUIT IN THE 80s - 06/15/2022 09:41 - Anuj Tejada RN Home/Environment 11/12/2023 Domestic Concerns None Living situation: Home/Independent Marital Status of Patient if Patient Independent Adult: Nutrition/Health 11/12/2023 Type of diet: Regular Appetite Good Eating Difficulties Swallowing Physical Examination Vital Signs 11/12/2023 7:59 EDT Temperature Tympanic 36.5 DegC LOW Apical Heart Rate 82 bpm Respiratory Rate 16 br/min Systolic Blood Pressure Non-Invasive 136 mmHg Diastolic Blood Pressure Non-Invasive 68 mmHg Vital Signs (last 24 hrs) Last Charted Temp TympanicL 36.5 DegC (NOV 11 07:59) Heart Rate Ieensg67 bpm (NOV 11 07:59) KLS569 mmHg (NOV 11 07:59) DBP68 mmHg (NOV 11 07:59) BMI26.1 (NOV 11 07:59) Measurements from flowsheet : Measurements 11/12/2023 7:59 EDT Height 162.6 cm Admission Weight 69 kg [place] Body Weight 59.24 kg BSA Admission 1.74 Body Mass Index 26.1 kg/m2 Pain assessment: Pain Assessment 11/12/2023 7:59 EDT Primary Pain Intensity 0 Pain Scale Type 0-10 Pain scale . General: Alert and oriented. Airway: Normal temporomandibular joint mobility, Normal mouth, Normal neck range of motion. Mallampati classification: II (soft palate, fauces, uvula visible). Dentition Evaluation: Dentures, lower, Dentures, upper. Respiratory: Respirations are non-labored. Cardiovascular: Normal rate. Neurologic: Alert, Oriented. Review / Management Results review: No qualifying data available , Lab results 11/12/2023 8:55 EDT [place] History and Physical 11/12/2023 8:54 EDT SN - Proc - Anesthesia Type MAC SN - Proc - EBL 0 mL SN - Proc - Actual Procedure FLEXIBLE SIGMOIDOSCOPY ; COLONOSCOPY 11/12/2023 8:53 EDT SN - PP - Body Position Lateral Right Side-up Standard Intra-op 11/12/2023 8:53 EDT SN - GCD - Post-operative Diagnosis RECTAL BLEED, HISTORY OF COLITIS SN - GCD - Case Level OPD Level 3 11/12/2023 8:53 EDT SN - CAt - Case Attendee SN - CAt - Case Attendee SN - CAt - Case Attendee SN - CAt - Case Attendee SN - CAt - Case Attendee SN - CAt - Case Attendee SN - CAt - Case Attendee SN - CAt - Case Attendee SN - CAt - Role Performed Primary Surgeon SN - CAt - Role Performed PARTNER MANAGER SN - CAt - Role Performed Clinical Dental Technician 1 SN - CAt - Role Performed Internet Assessor 1 11/12/2023 8:23 EDT Lactated Ringers Injection Begin Bag 1,000 mL mL 11/12/2023 8:15 EDT Urinary Elimination Voiding, no difficulties IV Present Present Anesthesia Extension Set Applied Yes Manager Branch On Yes Colon Prep Results Excellent Consent Form Signed Yes Patient Dressed In Hospital gown Pre-op Preparation Undergarments removed Bowel Prep Completed Yes Belongings At Bedside Pants, Shirt, Shoes, Undergarments NPO Status Maintained, More than 8 hours Anesthesia Consent Signed Yes Last Fluid Intake 11/12/2023 5:30 Last Food Intake 11/11/2023 8:17 Last Void 11/12/2023 9:00 11/12/2023 7:59 EDT Designated Person #1 We May Share PHI ORLY CORDERO [phone] Designated Person #1 Relationship Spouse Designated Person #2 We May Share PHI Acacia [phone] Designated Person #2 Relationship Other: Son in Law Height 162.6 cm Admission Weight 69 kg [place] Body Weight 59.24 kg BSA Admission 1.74 Body Mass Index 26.1 kg/m2 Temperature Tympanic 36.5 DegC LOW Apical Heart Rate 82 bpm Respiratory Rate 16 br/min Systolic Blood Pressure Non-Invasive 136 mmHg Diastolic Blood Pressure Non-Invasive 68 mmHg Primary Pain Intensity 0 Pain Scale Type 0-10 Pain scale Heart Rhythm Regular Cardiac Rhythm Sinus rhythm Oxygen Therapy Room air Oxygen Saturation 96 % Status N/A Continuous IV Infusions lr Forearm Right 11/12/2023 22 gauge Peripheral IV Activity: Insert new site Peripheral IV Number of Attempts: 1 Sensory Deficits None Ambulation Up with assistance Infectious Disease Symptoms Patient states no symptoms Infectious Disease Recent Exposure No Alcohol and [...] > 3 Weeks No Weight Loss No Arrival Mode Ambulatory Glasses Yes Dentures Lower, Upper GI Prep Suprep Subhash Motor (2) Moves 4 extremities voluntarily or on command Subhash Respirations (2) Spontaneous respiration without support, RR > 10 Subhash Blood Pressure (2) BP 20% above or below preanesthetic level Subhash Pulse (2) Pulse 20% above or below preanesthetic level Subhash Oxygen Saturation (2) 94% or more Subhash Level of Consciousness (2) Fully awake Subhash III Score 12 Barriers to Learning None evident Teaching Method Explanation, Printed materials Preferred Spoken Language Thai Preferred Written Language Thai Information Given by Patient Patient's Current Physicians JAMEL Discharge To, Anticipated Home with family care Positioning Repositions self Standard Safety ID band on, Allergy Band on, Call device within reach, Bed in low position, Wheels locked, Visitor at bedside, Safety level maintained Prev Test Positive/Diagnosis w/COVID-19 Yes Previous COVID-19 Positive Date 01/2022 Current Quarantine/Isolated any Illness No Any Contact with Sick Animals/Birds No Traveled Anywhere in Last 30 Days No N/A Personal Devices, Patient Valuables Glasses Admission Note-Nursing Procedure/Therapy Intake . Assessment and Plan Stateless Society of Anesthesiologists (ASA) physical status classification: Class III. Anesthetic Preoperative Plan Anesthetic technique: MAC. Informed consent: signed by patient. Digitally Signed by JACQUIE ARCHER on 11/12/2023 08:59 AM [facility]08-23-2024 Note [place] ADMISSION HISTORY AND PHYSICIAL CHIEF COMPLAINT: HISTORY OF PRESENT ILLNESS: REVIEW OF SYSTEMS: ACTIVE PROBLEMS: (6) Atrial fibrillation (13996161) Dysphagia (10550732) GERD (gastroesophageal reflux disease) (939784333) Hiatal hernia (443017922) AK (myocardial infarction) (09812488) Ulcerative colitis (152375140) MEDICATIONS: Active Inpt Meds: None Active PRN Meds: None One Time Meds: None Active IV Meds: Lactated Ringers Infusion 1,000 mL (LR 1,000 mL) Start: 11/12/23 7:48:00 EDT, Rate: 50 mL/hr, 11/12/23 7:48:00 EDT ALLERGIES: (1) No Known Medication Allergies FAMILY HISTORY: SOCIAL HISTORY: PHYSICAL EXAM: VITALS: EofhjyBjaeZUOeidjHECgG1YCO6EtibDb(kg) 11/11 07:5936.5--[id number]/23 69.0 24 Hr Tmax: 36.5 at 11/11 07:59 36 Hr Tmax: 36.5 at 11/11 07:59 Vital Signs are the last 5 in the past 48 hours. Weights display the last 5 within 7 days. Initial Wt: 11/11 69.0 kg 152 lb Current Wt: 11/11 69.0 kg 152 lb GENERAL: HEENT: CARDIOVASCULAR: RESPIRATORY: ABDOMEN: EXREMETIES: NEUROLOGICAL: PSYCHIATRIC: LABS: No 36hr Lab Data DIAGNOSTICS: IMPRESSION: PLAN: History and Physical Update I have examined the patient; reviewed the H&P and there are no changes to the H&P unless noted below. Digitally Signed by ERICK BELTRAN MD on 11/12/2023 08:56 AM [facility]12-26-2023 Discharge summary Author Ady Rothman [facility] March 16, 2023 1:11pm Note Date/Time March 16, 2023 9:14am [facility] Medical Records Department [address] [place] [address] Emergency Department Summary 03/16/23 MR#: [id number] Acct: [id number] Name: IRWIN CORDERO Rep #:[id number] : 1940 82 From: Ady Rothman DO PCP: Dr. Marcelo Mccullough MD Status:REG E R Location: ED HPI History of Present Illness Chief Complaint: Other, Pain/Inj Narrative Narrative: 82-year-old male presenting with upper back pain. He states it started about 1 AM this morning. He states it comes and last for about 20 to 30 minutes and will go away for short while and then return. Patient states he feels shaky with these episodes. He is not nauseous. He states he feels nervous on the left side of his chest when this happens. Patient states that he is no longer taking his amiodarone which was prescribed for him the last time he was here in the ER for A-fib. He states he has not taken this for 2 weeks because it makes him dizzy. His family states that he also has a history of anxiety has not taken his anxiety medication. He states he does not like the way this makes himfeel. He denies any julio cesar chest pressure or chest pain. No fevers or chills. No nausea or vomiting. Per the patient's family he has been having these episodes of shakiness and weakness periodically for extended period time. They have seen Dr. Mccullough. Patient states he recently saw Dr. Mccullough and states he did not give any reasons why he had the symptoms. [facility] Medical History Anemia Atherosclerosis of coronary artery of [place] heart without angina pectoris Bronchitis Cough Crohn disease DDD (degenerative disc disease) Deep vein thrombosis of left lower extremity (2012) Essential (primary) hypertension GERD (gastroesophageal reflux disease) Glaucoma Heartburn Hyperlipidemia Multiple allergies New onset a-fib Non-ST elevation (NSTEMI) myocardial infarction (10/03/16) PND (post-nasal drip) Prostate enlargement PUD (peptic ulcer disease) Skin cancer Stomach ulcer Unstable angina Home Medications nitroglycerin 0.4 mg sublingual tablet (Nitrostat) 0.4 mg sublingual Q5-15M PRN Chest Pain 04/06/17 [History Last Taken Unknown] apixaban 5 mg tablet (Eliquis) 5 mg PO BID blood thinner 12/16/17 [History Last Taken 02/20/22 22:00] atorvastatin 20 mg tablet 20 mg PO QHS cholesterol 11/03/18 [History Last Taken 02/20/22 22:00] balsalazide 750 mg capsule 2,250 mg PO BID stomach 07/11/19 [History Last Taken 02/20/22 22:00] pantoprazole 40 mg tablet,delayed release 40 mg PO DAILY stomach 01/26/20 [History Last Taken 02/20/22 09:00] acetaminophen 325 mg tablet (Tylenol) 650 mg PO Q6H PRN Breakthrough Pain, Mild 05/08/21 [History Last Taken Unknown] dextromethorphan polistirex 30 mg/5 mL oral susp ext.release 12hr (Robitussin ER) 10 ml PO Q12H PRN Cough 05/08/21 [History Last Taken Unknown] guaifenesin 600 mg tablet, extended release 12 hr (Mucinex) 600 mg PO Q12H PRN Cough 05/08/21 [History Last Taken Unknown] albuterol sulfate 90 mcg/actuation aerosol inhaler (Ventolin HFA) 2 puff inhalation Q4H PRN PRN Wheezing ##1 10/26/22 [Rx Last Taken Unknown] amiodarone 200 mg tablet 200 mg PO DAILY #90 tabs 11/12/22 [Rx Last Taken Unknown] levocetirizine 5 mg tablet 5 mg PO QHS 01/18/23 [History Last Taken Unknown] escitalopram oxalate 5 mg tablet 5 mg PO DAILY 02/03/23 [History Last Taken Unknown] digoxin 125 mcg (0.125 mg) tablet 125 mcg PO DAILY #30 tabs 03/16/23 [Rx Last Taken Unknown] Allergy/AdvReac Type Severity Reaction Status Date / Time ragweed pollen AdvReac Intermediate Nasal Verified 03/16/23 07:58 congestion Family History Father Heart disease Mother CVA (cerebral vascular accident) Surgical History H/O colonoscopy History of coronary artery stent placement (10/05/16) History of dental surgery (04/15/21) Previous back surgery Social History household members: spouse Smoking Status: Former smoker second hand exposure: No alcohol intake: never substance use type: does not use ROS ROS ED Constitutional Constitutional ED: Denies chills or fever(s) Eyes Eyes: Denies change in vision or diplopia ENT ENT ED: Denies rhinorrhea or sore throat Cardiovascular Cardiovascular: Reports chest pain and palpitations Respiratory/Chest Respiratory/Chest: Reports dyspnea Gastrointestinal Gastrointestinal: Denies abdominal pain, nausea or vomiting Genitourinary Genitourinary ED: Denies dysuria or hematuria Musculoskeletal Musculoskeletal: Denies arthralgias or myalgias Integumentary Denies abscess or Abrasions Neurologic Neurologic: Denies headache(s) or paresthesias Psychiatric Psychiatric: Reports anxiety; Denies depression, suicidal ideation or suicidal thoughts EXAM Physical Exam Const Vital Signs: 03/16/23 07:55 03/16/23 08:00 03/16/23 09:17 Temperature 98.3 F Temperature Source Oral Pulse Rate 71 Respiratory Rate 19 H Respiratory Effort Normal Non-Labored Respiratory Pattern Normal Blood Pressure 184/80 H Blood Pressure Mean 114 Pulse Ox 94 Oxygen Delivery Method Room Air Room Air 03/16/23 11:08 Temperature Temperature Source Pulse Rate 57 L Respiratory Rate 18 Respiratory Effort Respiratory Pattern Blood Pressure 164/78 H Blood Pressure Mean 106 Pulse Ox 95 Oxygen Delivery Method Room Air Positive well nourished General Appearance ED: NAD; Negative for pallor HEENT Reports moist mucous membranes Eyes PERRL and EOMs intact bilaterally General Eye ED: Negative for pale conjunctiva or scleral icterus Resp normal respiratory effort Auscultation: Negative for rales, rhonchi or wheezes Cardio regular rate and regular rhythm GI normal to inspection, nondistended, normoactive bowel sounds Back/Spine normal to inspection and no thoracic nor lumbar tenderness Extremity General Extremety ED: Yes edema; Negative for tenderness General Extremity: edema bilateral lower extremity Details: mild Neuro oriented x3 Sensorium / Orientation: alert Psych mental status grossly normal Skin no rashes or lesions noted General Skin Exam: Negative for jaundice or pallor MDM MDM MDM Narrative Medical decision making narrative: Patient presenting with upper back pain he does not have any tenderness on examination. He is currently pain-free. Differential includes ACS, CHF, pneumonia, thoracic strain, anxiety, dysrhythmia, tachycardia, paroxysmal A- fib,dehydration, electrolyte abnormalities. CBC will be obtained to assess white blood cell count, hemoglobin, platelets. BMP to assess renal function, electrolytes, glucose. High-sensitivity troponin and EKG to assess for ischemia. Chest x-ray to rule out pneumonia or CHF. BNP to assess for CHF. Patient anticoagulated on Eliquis slight low suspicion for PE. CBC shows normalwhite blood cell count of 4.5. Hemoglobin 12.0. Platelets are normal at 272. Renal function electrolytes within normal limits. High-sensitivity troponin is 8 and delta troponin is 8. BNP 80.4. EKG on my interpretation shows a sinus rhythm at 64 bpm without sign of ischemic change or ectopy. Chest x-ray my interpretation shows no acute process. Patient has been witnessed ambulating toand from the bathroom with stable gait. Discussed evaluation with Dr. Adela mars on for cardiology. He recommended having the patient started on low-dose digoxin of 0.125 daily. He is start this tomorrow. He also recommended outpatient Holter monitor which was provided from the ER. Patient will follow-up with Dr. Miller. He has an appointment on 24 March. Return precautions discussed. Impression: 1. Weakness 2. Back pain 3. Dizziness Lab Data Attestation: I reviewed the patient's lab results. Labs: Laboratory Results - last 24 hr 03/16/23 03/16/23 09:00 11:25 WBC 4.5 RBC 4.19 L Hgb 12.0 L Hct 38.1 L MCV 90.9 MCH 28.6 MCHC 31.5 L RDW Std Deviation 54.5 H RDW Coeff of Gaby 16.1 H Plt Count 272 MPV 9.2 Immature Gran % (Auto) 0.700 Neut % (Auto) 54.8 Lymph % (Auto) 21.0 [place] % (Auto) 17.2 H Eos % (Auto) 5.4 H Baso % (Auto) 0.9 Absolute Neuts (auto) 2.5 Absolute Lymphs (auto) 0.94 Nucleated RBC % 0 Sodium 140 Potassium 3.9 Chloride 107 Carbon Dioxide 29.0 Anion Gap 4 L BUN 13 Creatinine 0.91 Estim Creat Clear Calc 46.67 Est GFR (MDRD) Af Amer 102 Est GFR (MDRD) Non-Af 85 BUN/Creatinine Ratio 14.3 Glucose 102 Calcium 8.7 Troponin I High Sens 8 8 B-Natriuretic Peptide 80.4 Radiography Diagnostic Testing: Clinical Impression(s) from Imaging Studies Chest X-Ray 03/16/23 09:22 IMPRESSION: COPD. No interval change. Electronically Signed: Cam English MD at 9:35 EST , Discharge Plan Triage Chief Complaint: Other, Pain/Inj ED Provider: Ady Rothman Dx/Rx/DC Orders Instructions: ED Back Pain (Acute or Chronic), ED Dizziness, Uncertain Cause Prescriptions: New digoxin 125 mcg (0.125 mg) tablet 125 mcg PO DAILY Qty: 30 0RF No Action nitroglycerin [Nitrostat] 0.4 mg tablet, sublingual 0.4 mg SUBLINGUAL Q5-15M PRN (Reason: Chest Pain) Patient Comments: pt. states he has never had to take it Eliquis 5 mg tablet 5 mg PO BID atorvastatin 20 mg tablet 20 mg PO QHS pantoprazole 40 mg tablet,delayed release (DR/EC) 40 mg PO DAILY dextromethorphan polistirex [Robitussin ER] 30 mg/5 mL suspension,extended rel12 hr 10 ml PO Q12H PRN (Reason: Cough) acetaminophen [Tylenol] 325 mg tablet 650 mg PO Q6H PRN (Reason: Breakthrough Pain, Mild) guaifenesin [Mucinex] 600 mg tablet extended release 12hr 600 mg PO Q12H PRN (Reason: Cough) balsalazide 750 mg capsule 2,250 mg PO BID Rx Instructions: 750 mg PO 6 capsules per day; albuterol sulfate [Ventolin HFA] 90 mcg/actuation HFA aerosol inhaler 2 puff inhalation Q4H PRN PRN (Reason: Wheezing) Qty: 1 0RF Hold Instructions: No transportation amiodarone 200 mg Tablet 200 mg PO DAILY Qty: 90 0RF escitalopram oxalate 5 mg tablet 5 mg PO DAILY Patient Comments: TAKE 1 TABLET BY MOUTH EVERY DAY levocetirizine 5 mg tablet 5 mg PO QHS Patient Comments: TAKE 1 TABLET BY MOUTH EVERYDAY AT BEDTIME Primary Care Provider: Marcelo Mccullough Chi Referrals: Marcelo Mccullough Chi, MD [Primary Care Provider] - Disposition Disposition: Home, Self Care What to do if you have Problems For any increased pain, shortness of breath, bleeding, nausea or vomiting, chestpain, or any unexpected problems, contact your Primary Care Provider. Call [facility] ([phone]) or report to the closest Emergency Room. Call 911 if necessary. 03/16/23 1311 <Electronically signed by Ady Rothman DO> Cosigner Signature (if applicable): CC: Dr. Marcelo Mccullough MD ~ Signed [facility] Work Phone: [phone] 290-512210-30-2023 Discharge summary Author Tyron Sosa [facility] January 18, 2023 5:54am Note Date/Time January 18, 2023 3 :50am [facility] Medical Records Department [address] [place] [address] Emergency Department Summary 01/18/23 MR#: [id number] Acct: [id number] Name: IRWIN CORDERO Rep #:[id number] : 1940 82 From: Tyron Sosa MD PCP: Dr. Marcelo Mccullough MD Status:REG E R Location: ED HPI History of Present Illness Chief Complaint: Chest Pain Narrative Narrative: Patient presents with chest discomfort and some fluttering in his chest. He hasa history of A-fib. He is anticoagulated on Eliquis. He did have a eventful night last night, he was celebrating his 63th wedding anniversary. He has no back pain or tearing sensation no abdominal pain. No difficulty breathing. [facility] Medical History Anemia Atherosclerosis of coronary artery of [place] heart without angina pectoris Bronchitis Cough Crohn disease DDD (degenerative disc disease) Deep vein thrombosis of left lower extremity (2012) Essential (primary) hypertension GERD (gastroesophageal reflux disease) Glaucoma Heartburn Hyperlipidemia Multiple allergies New onset a-fib Non-ST elevation (NSTEMI) myocardial infarction (10/03/16) PND (post-nasal drip) Prostate enlargement PUD (peptic ulcer disease) Skin cancer Stomach ulcer Unstable angina Home Medications nitroglycerin 0.4 mg sublingual tablet (Nitrostat) 0.4 mg sublingual Q5-15M PRN Chest Pain 04/06/17 [History Last Taken Unknown] apixaban 5 mg tablet (Eliquis) 5 mg PO BID blood thinner 12/16/17 [History Last Taken 02/20/22 22:00] atorvastatin 20 mg tablet 20 mg PO QHS cholesterol 11/03/18 [History Last Taken 02/20/22 22:00] balsalazide 750 mg capsule 2,250 mg PO BID stomach 07/11/19 [History Last Taken 02/20/22 22:00] pantoprazole 40 mg tablet,delayed release 40 mg PO DAILY stomach 01/26/20 [History Last Taken 02/20/22 09:00] acetaminophen 325 mg tablet (Tylenol) 650 mg PO Q6H PRN Breakthrough Pain, Mild 05/08/21 [History Last Taken Unknown] dextromethorphan polistirex 30 mg/5 mL oral susp ext.release 12hr (Robitussin ER) 10 ml PO Q12H PRN Cough 05/08/21 [History Last Taken Unknown] guaifenesin 600 mg tablet, extended release 12 hr (Mucinex) 600 mg PO Q12H PRN Cough 05/08/21 [History Last Taken Unknown] albuterol sulfate 90 mcg/actuation aerosol inhaler (Ventolin HFA) 2 puff inhalation Q4H PRN PRN Wheezing ##1 10/26/22 [Rx Last Taken Unknown] amlodipine 5 mg tablet 5 mg PO DAILY 11/11/22 [History Last Taken Unknown] amiodarone 200 mg tablet 200 mg PO DAILY #90 tabs 11/12/22 [Rx Last Taken Unknown] levocetirizine 5 mg tablet 5 mg PO QHS 01/18/23 [History Last Taken Unknown] Allergy/AdvReac Type Severity Reaction Status Date / Time ragweed pollen AdvReac Intermediate Nasal Verified 01/18/23 04:04 congestion Family History Father Heart disease Mother CVA (cerebral vascular accident) Surgical History H/O colonoscopy History of coronary artery stent placement (10/05/16) History of dental surgery (04/15/21) Previous back surgery Social History household members: spouse Smoking Status: Former smoker second hand exposure: No alcohol intake: never substance use type: does not use ROS ROS ED ROS Narrative Past medical history: Reviewed, includes atrial fibrillation, hypertension, CAD Medications: Reviewed, includes Eliquis Social history: Noncontributory Review of systems: All systems negative except as indicated General: No fever Eyes: No visual changes ENT: No upper airway congestion, normal voice Neck: No neck pain Cardiovascular: Some palpitations and some chest discomfort. Respiratory: No shortness of breath or cough Gastrointestinal: No abdominal pain, nausea vomiting or diarrhea Genitourinary: No dysuria Musculoskeletal: Denies myalgias no difficulty with ambulation Skin: No rash Neurological: No memory loss, confusion or any focal weakness EXAM Physical Exam Narrative Exam Narrative: Physical exam General: Well nourished, Well developed, No Acute Distress Head: Normocephalic, Atraumatic Eyes: Conjunctiva not pale ENT: Moist mucous membranes Neck: Supple, Nontender, No lymphadenopathy Cardiovascular: Regular rate, Regular rhythm. No murmur. No JVD. Respiratory: No distress, CTA bilaterally Abdomen: Soft, Nontender, Nondistended Back: Nontender, Normal Inspection. Negative for: CVA tenderness Extremities: Nontender, No edema Skin: Normal color, No rash Const Vital Signs: 01/18/23 03:35 01/18/23 03:43 01/18/23 04:34 Temperature 97.4 F L Temperature Source Temporal Pulse Rate 67 59 L Respiratory Rate 18 18 Blood Pressure 165/72 H 141/65 H Blood Pressure Mean 103 90 Pulse Ox 94 98 Oxygen Delivery Method Room Air Room Air Room Air MDM MDM MDM Narrative Medical decision making narrative: Prehospital EKG showed that the patient was in atrial fibrillation. However upon arrival to the emergency department on the monitor and on EKG he is in sinus rhythm. He appears well he still feels somewhat anxious and does not feellike he can go to sleep. Patient will be ruled out from the cardiac standpoint. I am not worried about PE since he is on Eliquis, he does not have back pain ortearing sensation, I am not worried about dissection. Chest x-ray does not showany pneumonia, pneumothorax or any other lung pathologies. Lab Data Labs: Laboratory Results - last 24 hr 01/18/23 03:39 WBC 6.6 RBC 4.07 L Hgb 11.6 L Hct 37.3 L MCV 91.6 MCH 28.5 MCHC 31.1 L RDW Std Deviation 56.8 H RDW Coeff of Gaby 16.9 H Plt Count 214 MPV 9.1 Immature Gran % (Auto) 0.200 Neut % (Auto) 43.9 L Lymph % (Auto) 33.0 [place] % (Auto) 15.5 H Eos % (Auto) 6.8 H Baso % (Auto) 0.6 Absolute Neuts (auto) 2.9 Absolute Lymphs (auto) 2.17 Nucleated RBC % 0 Sodium 137 Potassium 3.8 Chloride 106 Carbon Dioxide 27.0 Anion Gap 4 L BUN 22 H Creatinine 1.19 Estim Creat Clear Calc 40.20 Est GFR (MDRD) Af Amer 75 Est GFR (MDRD) Non-Af 62 BUN/Creatinine Ratio 18.5 Glucose 103 Calcium 8.7 Troponin I High Sens 9 Radiography Chest X-Ray - ED: 1 View, Read by ED Physician, Normal, Heart, Lungs, Mediastinum and Bony Structures Diagnostic Testing: Clinical Impression(s) from Imaging Studies Chest X-Ray 01/18/23 03:35 IMPRESSION: Mild left basilar airspace disease. Findings may indicate atelectasis or infection. Electronically Signed: Aki Badillo MD at 4:10 EDT , Rhythm Strip Rhythm Strip: Sinus Rhythm Rate: 60 Ectopy: None EKG Initial EKG: Comments: Sinus rhythm with a rate of 66. Normal [place] and QTc intervals. No ischemic changes. Interpreted by emergency doctor Discharge Plan Triage Chief Complaint: Chest Pain ED Provider: Tyron Sosa Dx/Rx/DC Orders Clinical Impression: Hyperlipidemia, Paroxysmal atrial fibrillation, Chest pain Instructions: AFib, ED Chest Pain, Uncertain Cause Prescriptions: No Action nitroglycerin [Nitrostat] 0.4 mg tablet, sublingual 0.4 mg SUBLINGUAL Q5-15M PRN (Reason: Chest Pain) Eliquis 5 mg tablet 5 mg PO BID atorvastatin 20 mg tablet 20 mg PO QHS pantoprazole 40 mg tablet,delayed release (DR/EC) 40 mg PO DAILY dextromethorphan polistirex [Robitussin ER] 30 mg/5 mL suspension,extended rel12 hr 10 ml PO Q12H PRN (Reason: Cough) acetaminophen [Tylenol] 325 mg tablet 650 mg PO Q6H PRN (Reason: Breakthrough Pain, Mild) guaifenesin [Mucinex] 600 mg tablet extended release 12hr 600 mg PO Q12H PRN (Reason: Cough) balsalazide 750 mg capsule 2,250 mg PO BID Rx Instructions: 750 mg PO 6 capsules per day; albuterol sulfate [Ventolin HFA] 90 mcg/actuation HFA aerosol inhaler 2 puff inhalation Q4H PRN PRN (Reason: Wheezing) Qty: 1 0RF Hold Instructions: No transportation amlodipine 5 mg tablet 5 mg PO DAILY Patient Comments: TAKE 1 TABLET BY MOUTH DAILY amiodarone 200 mg Tablet 200 mg PO DAILY Qty: 90 0RF levocetirizine 5 mg tablet 5 mg PO QHS Patient Comments: TAKE 1 TABLET BY MOUTH EVERYDAY AT BEDTIME Primary Care Provider: Marcelo Mccullough Chi Referrals: Marcelo Mccullough Chi, MD [Primary Care Provider] - 3-5 Days Disposition Disposition: Home, Self Care What to do if you have Problems For any increased pain, shortness of breath, bleeding, nausea or vomiting, chestpain, or any unexpected problems, contact your Primary Care Provider. Call [facility] ([phone]) or report to the closest Emergency Room. Call 911 if necessary. 01/18/23 0554 <Electronically signed by Tyron Sosa MD> Cosigner Signature (if applicable): CC: Dr. Marcelo Mccullough MD ~ Signed [facility] Work Phone: [phone]) 243-398808-24-2023 Discharge summary Author Jaime Nuñez [facility] November 12, 2022 10:24am Note Date/Time November 12, 2022 10 :21am [facility] Medical Records Department [address] [place] [address] Discharge Summary 11/12/22 1020 MR#: [id number] Acct: [id number] Name: IRWIN CORDERO Rep #:[id number] : 1940 82 From: Jaime Nuñez MD PCP: Dr. Marcelo Mccullough MD Status:ADM I N Location: [place] [address] Providers Date of Admission: 11/11/22 Date of Discharge: 11/12/22 Primary Care Physician: Dr. Marcelo Mccullough MD Consultations 11/11/22 06:53 Consult: Cardiology Routine Consulting Provider: Leah Marie Reason for Consult: a-fib with RVR EMERGENT Consult: No MD Notified: Yes Date Notified: 11/11/22 Time Notified: 06:00 Method of Notification: Text Reason For Visit: AFIB WITH RVR Diagnosis Discharge Diagnosis (1) Atrial fibrillation with rapid ventricular response: Status: Acute Code(s): I48.91 - Unspecified atrial fibrillation Plan Patient is an 82-year-old gentleman admitted with chest pain diaphoresis as wellas palpitations. Was found to be in A-fib with RVR on admission 1. A-fib with RVR ? Patient underwent attempted 3 unsuccessful DC cardioversion in the emergency department subsequently started on Cardizem drip admitted to a monitored bed started on apixaban with consultation placed to cardiology ? Patient converted to sinus rhythm on Cardizem drip decision made to discharge patient a day following his admission. Patient was started on amiodarone prescription written on discharge 2. Hypokalemia -Corrected per protocol 3. Coronary artery disease ? With previous PCI with TAMIKO to the RCA lesion in 10/05/2016. Patient is currently on guideline directed medical therapy 4. History of DVT ? Patient is on apixaban 5. COPD ? Currently not in exacerbation aerosol treatment as needed 6. Hypertension - Blood pressure controlled, home medications continued with dose adjustment as needed 7. Dyslipidemia -Patient is on statin therapy, continued at home dose 8. GERD ? Patient is on PPI 9. BPH ? Currently not in any medications 10. Anemia - Secondary to chronic disorder monitoring H&H and transfuse if patient becomes symptomatic or hemoglobin falls below 7 11. DVT prophylaxis ? On apixaban Time spent in the patient's overall evaluation,decision-making process, review of diagnostic data, adjustment of management, discussion with other providers, nursing nursing and ancillary staff involved in patient's care documentation, 35minutes Medications at Discharge Home Medications nitroglycerin 0.4 mg sublingual tablet (Nitrostat) 0.4 mg sublingual Q5-15M PRN Chest Pain 04/06/17 apixaban 5 mg tablet (Eliquis) 5 mg PO BID blood thinner 12/16/17 atorvastatin 20 mg tablet 20 mg PO QHS cholesterol 11/03/18 balsalazide 750 mg capsule 2,250 mg PO BID stomach 07/11/19 pantoprazole 40 mg tablet,delayed release 40 mg PO DAILY stomach 01/26/20 acetaminophen 325 mg tablet (Tylenol) 650 mg PO Q6H PRN Breakthrough Pain, Mild 05/08/21 dextromethorphan polistirex 30 mg/5 mL oral susp ext.release 12hr (Robitussin ER) 10 ml PO Q12H PRN Cough 05/08/21 guaifenesin 600 mg tablet, extended release 12 hr (Mucinex) 600 mg PO Q12H PRN Cough 05/08/21 albuterol sulfate 90 mcg/actuation aerosol inhaler (Ventolin HFA) 2 puff inhalation Q4H PRN PRN Wheezing ##1 10/26/22 amlodipine 5 mg tablet 5 mg PO DAILY 11/11/22 amiodarone 200 mg tablet 200 mg PO DAILY #90 tabs 11/12/22 Hospital Course Summary of Care Provided Minutes Spent on Discharge: 35 Physical Exam Narrative GENERAL: cooperative HEENT: Atraumatic; normocephalic EYES; Anicteric, Normal Conjunctiva NECK; supple, normal thyroid, RESPIRATORY: Diminished to auscultation CARDIOVASCULAR: Regular S1 S2, GI: soft, normoactive bowel sounds, : No Renal angle tenderness; EXTREMITIES: No edema, no clubbing, MUSCULOSKELETAL: no muscle wasting NEURO: Awake; no lateralizing signs. SKIN: No Rash PSYCH; Flat affect Weight / BMI Weight Weight: 71.2 kg Body Mass Index (BMI) 26.1 ABG / Lab / Microbiology Data 11/12/22 05:20 11/12/22 05:20 Laboratory: Laboratory Results - last 24 hr 11/12/22 05:20: WBC 5.2, RBC 3.70 L, Hgb 10.7 L, Hct 33.5 L, MCV 90.5, MCH 28.9,MCHC 31.9 L, RDW Std Deviation 51.8 H, RDW Coeff of Gaby 15.7 H, Plt Count 202, MPV 8.8, Immature Gran % (Auto) 0.400, Neut % (Auto) 47.6, Lymph % (Auto) 21.3, [place] % (Auto) 22.8 H, Eos % (Auto) 7.1 H, Baso % (Auto) 0.8, Absolute Neuts (auto) 2.5, Absolute Lymphs (auto) 1.11, Nucleated RBC % 0, Sodium 140, Potassium 3.7, Chloride 109 H, Carbon Dioxide 25.0, Anion Gap 6, BUN 11, Creatinine 0.74, Estim Creat Clear Calc 47.83, Est GFR (MDRD) Af Amer 130, Est GFR (MDRD) Non-Af 108, BUN/Creatinine Ratio 14.9, Glucose 112 H, Calcium 8.1 L, Phosphorus 3.0, Magnesium 2.0, Total Bilirubin 1.40 H, AST 24, ALT 13 L, Alkaline Phosphatase 45, Total Protein 5.9 L, Albumin 2.5 L, Globulin 3.4, Albumin/Globulin Ratio 0.7 L Radiography Diagnostic Testing: Radiology Impression Echocardiogram 11/11/22 06:19 Interpretation Summary The left ventricular ejection fraction is 65 %. The left atrium is moderately enlarged. The right atrium is moderately enlarged. Mild mitral annular calcification. Mild tricuspid valve insufficiency. Right ventricular systolic pressure estimated to be 40 mmHg. The study was technically difficult. Ordering Physician: Mariana Rich Referring Physician: Marcelo Mccullough Chi Performed By: Susanna Ku, JORY, RVT D/C Instructions Discharge Diet: No restrictions Discharge Activity: Return to Normal Activity Call your doctor if you observe: Fever of 101 or Higher, Shortness of breath, Fainting spells and Chest pain Meaningful Use Info Meaningful Use Diagnoses (Choose all that apply): None applicable Discharge Plan Admission Admit Date/Time: 11/11/22 05:42 Attending Provider: Jaime Nuñez Primary Care Provider: Marcelo Mccullough Chi Consulting Providers: Leah Marie; Mariana Rich Discharge Orders/Prescriptions Prescriptions: New amiodarone 200 mg Tablet 200 mg PO DAILY Qty: 90 0RF Continued nitroglycerin [Nitrostat] 0.4 mg tablet, sublingual 0.4 mg SUBLINGUAL Q5-15M PRN (Reason: Chest Pain) Eliquis 5 mg tablet 5 mg PO BID atorvastatin 20 mg tablet 20 mg PO QHS pantoprazole 40 mg tablet,delayed release (DR/EC) 40 mg PO DAILY dextromethorphan polistirex [Robitussin ER] 30 mg/5 mL suspension,extended rel12 hr 10 ml PO Q12H PRN (Reason: Cough) acetaminophen [Tylenol] 325 mg tablet 650 mg PO Q6H PRN (Reason: Breakthrough Pain, Mild) guaifenesin [Mucinex] 600 mg tablet extended release 12hr 600 mg PO Q12H PRN (Reason: Cough) balsalazide 750 mg capsule 2,250 mg PO BID Rx Instructions: 750 mg PO 6 capsules per day; albuterol sulfate [Ventolin HFA] 90 mcg/actuation HFA aerosol inhaler 2 puff inhalation Q4H PRN PRN (Reason: Wheezing) Qty: 1 0RF amlodipine 5 mg tablet 5 mg PO DAILY Patient Comments: TAKE 1 TABLET BY MOUTH DAILY Referrals / Follow Up: Marcelo Mccullough Chi, MD [Primary Care Provider] - Within 1 Week Disposition Disposition (needs filled in before D/C Order can be placed): Home, Self Care Charges/Coding Visit Charges Inpatient E&M: 48535 Disch Hosp >30min 11/12/22 1024 <Electronically signed by Jaime Nuñez MD> Cosigner Signature (if applicable): CC: Dr. Jaime Nuñez MD; Dr. Marcelo Mccullough MD~ Signed [facility] Work Phone: 1(874) 184-435108-24-2023 Progress note Author Jaime Nuñez [facility] November 12, 2022 10:20am Note Date/Time November 12, 2022 8: 22am [facility] Medical Records Department [address] [place] [address] Progress Note - Hospitalist 11/12/22818 MR#: [id number] Acct: [id number] Name: IRWIN CORDERO Rep #:[id number] : 1940 82 From: Jaime Nuñez MD PCP: Dr. Marcelo Mccullough MD Status:ADM I N Location: [place] [address] Reason for Visit Reason for Visit: Diagnoses Hyperlipidemia, unspecified (11/11/22) Hypokalemia (11/11/22) Essential (primary) hypertension (11/11/22) Atherosclerotic heart disease of [place] coronary artery without angina pectoris (11/11/22) Paroxysmal atrial fibrillation (11/11/22) Unspecified atrial fibrillation (11/11/22) Chest pain, unspecified (11/11/22) Hyperglycemia, unspecified (11/11/22) Personal history of other venous thrombosis and embolism (11/11/22) Subjective Subjective Patient seen converted back to sinus rhythm the day prior. Plan for patient to be assessed for discharge. Objective Data Objective Data Vital Signs: Vital Signs Temp Pulse Resp BP Pulse Ox O2 Del Method 97.9 F 61 18 127/68 H 95 Room Air 11/12/22 03:03 11/12/22 03:03 11/12/22 03:03 11/12/22 03:03 11/12/22 03:03 11/12/22 03:03 Oxygen Delivery Method [1 ( Room Air Initial Baseline)] Oxygen Delivery Method Room Air Weight: 71.2 kg Body Mass Index (BMI) 26.1 Intake & Output: Intake and Output for Last 24 Hours 11/10/22 11/11/22 11/12/22 23:59 23:59 23:59 Intake Total Balance Lab / Micro Data 11/12/22 05:20 11/12/22 05:20 Labs: Laboratory Results - last 24 hr 11/12/22 05:20: WBC 5.2, RBC 3.70 L, Hgb 10.7 L, Hct 33.5 L, MCV 90.5, MCH 28.9,MCHC 31.9 L, RDW Std Deviation 51.8 H, RDW Coeff of Gaby 15.7 H, Plt Count 202, MPV 8.8, Immature Gran % (Auto) 0.400, Neut % (Auto) 47.6, Lymph % (Auto) 21.3, [place] % (Auto) 22.8 H, Eos % (Auto) 7.1 H, Baso % (Auto) 0.8, Absolute Neuts (auto) 2.5, Absolute Lymphs (auto) 1.11, Nucleated RBC % 0, Sodium 140, Potassium 3.7, Chloride 109 H, Carbon Dioxide 25.0, Anion Gap 6, BUN 11, Creatinine 0.74, Estim Creat Clear Calc 47.83, Est GFR (MDRD) Af Amer 130, Est GFR (MDRD) Non-Af 108, BUN/Creatinine Ratio 14.9, Glucose 112 H, Calcium 8.1 L, Phosphorus 3.0, Magnesium 2.0, Total Bilirubin 1.40 H, AST 24, ALT 13 L, Alkaline Phosphatase 45, Total Protein 5.9 L, Albumin 2.5 L, Globulin 3.4, Albumin/Globulin Ratio 0.7 L Radiography Diagnostic Testing: Radiology Impression Echocardiogram 11/11/22 06:19 Interpretation Summary The left ventricular ejection fraction is 65 %. The left atrium is moderately enlarged. The right atrium is moderately enlarged. Mild mitral annular calcification. Mild tricuspid valve insufficiency. Right ventricular systolic pressure estimated to be 40 mmHg. The study was technically difficult. Ordering Physician: Mariana Rich Referring Physician: Marcelo Mccullough Chi Performed By: Susanna Ku, JORY, RVT Physical Exam Narrative GENERAL: cooperative HEENT: Atraumatic; normocephalic EYES; Anicteric, Normal Conjunctiva NECK; supple, normal thyroid, RESPIRATORY: Diminished to auscultation CARDIOVASCULAR: Regular S1 S2, GI: soft, normoactive bowel sounds, : No Renal angle tenderness; EXTREMITIES: No edema, no clubbing, MUSCULOSKELETAL: no muscle wasting NEURO: Awake; no lateralizing signs. SKIN: No Rash PSYCH; Flat affect Assessment & Plan Assessment/Plan (1) Atrial fibrillation with rapid ventricular response: PLAN: Plan Patient is an 82-year-old gentleman admitted with chest pain diaphoresis as wellas palpitations. Was found to be in A-fib with RVR on admission 1. A-fib with RVR ? Patient underwent attempted 3 unsuccessful DC cardioversion in the emergency department subsequently started on Cardizem drip admitted to a monitored bed started on apixaban with consultation placed to cardiology ? Patient converted to sinus rhythm on Cardizem drip decision made to discharge patient a day following his admission 2. Hypokalemia -Corrected per protocol 3. Coronary artery disease ? With previous PCI with TAMIKO to the RCA lesion in 10/05/2016. Patient is currently on guideline directed medical therapy 4. History of DVT ? Patient is on apixaban 5. COPD ? Currently not in exacerbation aerosol treatment as needed 6. Hypertension - Blood pressure controlled, home medications continued with dose adjustment as needed 7. Dyslipidemia -Patient is on statin therapy, continued at home dose 8. GERD ? Patient is on PPI 9. BPH ? Currently not in any medications 10. Anemia - Secondary to chronic disorder monitoring H&H and transfuse if patient becomes symptomatic or hemoglobin falls below 7 11. DVT prophylaxis ? On apixaban Time spent in the patient's overall evaluation,decision-making process, review of diagnostic data, adjustment of management, discussion with other providers, nursing nursing and ancillary staff involved in patient's care documentation, 35minutes Charges/Coding Visit Charges Inpatient E&M: 55179 Subs Hosp L2 11/12/22 1020 <Electronically signed by Jaime Nuñez MD> Cosigner Signature (if applicable): CC: ~ Signed [facility] Work Phone: 1(175) 486-220108-23-2023 Consult note Author Leah Marie [facility] November 11, 2022 2:04pm Note Date/Time November 11, 2022 2: 04pm [facility] Medical Records Department [address] [place] [address] Consultation - Cardiology 11/11/22 1358 MR#: [id number] Acct: [id number] Name: IRWIN CORDERO Rep #:[id number] : 1940 82 From: Leah Marie MD PCP: Dr. Marcelo Mccullough MD Status:ADM I N Location: [place] [address] Assessment & Plan Assessment/Plan (1) Paroxysmal atrial fibrillation: PLAN: Spontaneously converted to normal sinus rhythm. Will start on amiodarone for maintenance of sinus rhythm. Stop metoprolol. On apixaban for prevention of thromboembolic phenomenon. (2) Chest pain: PLAN: Likely secondary to atrial fibrillation with rapid ventricular response. Patient had coronary angiography done in 2017 which showed nonobstructive disease. Consider Lexiscan stress Myoview as outpatient. (3) Coronary artery disease: PLAN: See #2 above. (4) Hypertension: PLAN: Blood pressure actually on the lower side today. Stop metoprolol. Monitor. (5) Dyslipidemia: PLAN: On atorvastatin. (6) History of DVT (deep vein thrombosis): PLAN: On apixaban. HPI Consult Data Date of Consult: 11/11/22 HPI Narrative Reason for Consultation: Atrial fibrillation HPI Narrative: This patient has past medical history significant for paroxysmal atrial fibrillation. He presented to the emergency room after he had some chest discomfort at home. The EMS noted him to be in atrial fibrillation with rapid ventricular response. His heart rate was noted to be as high as in the 180s. In the emergency room, he was given adenosine, then diltiazem and finally DC cardioversion was attempted however he continued to be in atrial fibrillation. Per patient, his chest discomfort has now resolved. It is noted that he has spontaneously converted to normal sinus rhythm earlier this morning. [facility] Medical History Anemia Atherosclerosis of coronary artery of [place] heart without angina pectoris Bronchitis Cough Crohn disease DDD (degenerative disc disease) Deep vein thrombosis of left lower extremity (2012) Essential (primary) hypertension GERD (gastroesophageal reflux disease) Glaucoma Heartburn Hyperlipidemia Multiple allergies New onset a-fib Non-ST elevation (NSTEMI) myocardial infarction (10/03/16) PND (post-nasal drip) Prostate enlargement PUD (peptic ulcer disease) Skin cancer Stomach ulcer Unstable angina Home Medications nitroglycerin 0.4 mg sublingual tablet (Nitrostat) 0.4 mg sublingual Q5-15M PRN Chest Pain 04/06/17 [History Last Taken Unknown] apixaban 5 mg tablet (Eliquis) 5 mg PO BID blood thinner 12/16/17 [History Last Taken 02/20/22 22:00] atorvastatin 20 mg tablet 20 mg PO QHS cholesterol 11/03/18 [History Last Taken 02/20/22 22:00] balsalazide 750 mg capsule 2,250 mg PO BID stomach 07/11/19 [History Last Taken 02/20/22 22:00] pantoprazole 40 mg tablet,delayed release 40 mg PO DAILY stomach 01/26/20 [History Last Taken 02/20/22 09:00] acetaminophen 325 mg tablet (Tylenol) 650 mg PO Q6H PRN Breakthrough Pain, Mild 05/08/21 [History Last Taken Unknown] dextromethorphan polistirex 30 mg/5 mL oral susp ext.release 12hr (Robitussin ER) 10 ml PO Q12H PRN Cough 05/08/21 [History Last Taken Unknown] guaifenesin 600 mg tablet, extended release 12 hr (Mucinex) 600 mg PO Q12H PRN Cough 05/08/21 [History Last Taken Unknown] albuterol sulfate 90 mcg/actuation aerosol inhaler (Ventolin HFA) 2 puff inhalation Q4H PRN PRN Wheezing ##1 10/26/22 [Rx Last Taken Unknown] amlodipine 5 mg tablet 5 mg PO DAILY 11/11/22 [History Last Taken Unknown] Allergy/AdvReac Type Severity Reaction Status Date / Time ragweed pollen AdvReac Intermediate Nasal Verified 11/11/22 03:28 congestion Family History Father Heart disease Mother CVA (cerebral vascular accident) Surgical History H/O colonoscopy History of coronary artery stent placement (10/05/16) History of dental surgery (04/15/21) Previous back surgery Social History household members: spouse Smoking Status: Former smoker second hand exposure: No alcohol intake: never substance use type: does not use Physical Exam Narrative Comfortable. No apparent distress. Heart sounds 1 and 2 noted. Chest diminished breath sounds bilaterally. No crepitations or rhonchi. Abdomen soft. Alert oriented x3. No ankle edema. Risk Stratification Risk Stratification Applicable: No Objective Data Vital Signs: Vital Signs Temp Pulse Resp BP Pulse Ox O2 Del Method 98.6 F 68 16 98/66 95 Room Air 11/11/22 11:59 11/11/22 11:45 11/11/22 11:59 11/11/22 11:59 11/11/22 11:59 11/11/22 11:59 Oxygen Delivery Method [1 ( Room Air Initial Baseline)] Oxygen Delivery Method Room Air Weight: 156 lb 15.506 oz Body Mass Index (BMI) 26.1 Intake & Output: Intake and Output for Last 24 Hours 11/09/22 11/10/22 11/11/22 23:59 23:59 23:59 Intake Total 1050.67 / 1050.67 Balance 1050.67 / 1050.67 Lab / Micro Data 11/11/22 03:40 11/11/22 03:40 Labs: Laboratory Results - last 24 hr 11/11/22 03:40: WBC 7.0, RBC 4.14 L, Hgb 12.0 L, Hct 37.1 L, MCV 89.6, MCH 29.0,MCHC 32.3, RDW Std Deviation 51.0 H, RDW Coeff of Gaby 15.5 H, Plt Count 247, MPV9.0, Immature Gran % (Auto) 0.300, Neut % (Auto) 39.5 L, Lymph % (Auto) 27.3, [place] % (Auto) 27.2 H, Eos % (Auto) 5.3 H, Baso % (Auto) 0.4, Absolute Neuts (auto) 2.8, Absolute Lymphs (auto) 1.90, Nucleated RBC % 0, Anisocytosis 1+, [id number], Potassium 3.4 L, Chloride 106, Carbon Dioxide 26.0, Anion Gap 9, BUN 15, Creatinine 0.91, Estim Creat Clear Calc 50.60, Est GFR (MDRD) Af Amer 101, Est GFR (MDRD) Non-Af 84, BUN/Creatinine Ratio 16.4, Glucose 130 H, Hemoglobin A1c 6.6 H, Calcium 8.7, Magnesium 1.9, TSH 2.35 Cardiology Labs/Tests 11/11/22 03:40: WBC 7.0, RBC 4.14 L, Hgb 12.0 L, Hct 37.1 L, MCV 89.6, MCH 29.0,MCHC 32.3, Plt Count 247, MPV 9.0, Immature Gran % (Auto) 0.300, Neut % (Auto) 39.5 L, Lymph % (Auto) 27.3, [place] % (Auto) 27.2 H, Eos % (Auto) 5.3 H, Baso % (Auto) 0.4, Absolute Neuts (auto) 2.8, Nucleated RBC % 0, Sodium 141, Potassium 3.4 L, Chloride 106, Carbon Dioxide 26.0, Anion Gap 9, BUN 15, Creatinine 0.91, Est GFR (MDRD) Af Amer 101, Est GFR (MDRD) Non-Af 84, BUN/Creatinine Ratio 16.4,Glucose 130 H, Hemoglobin A1c 6.6 H, Calcium 8.7, Magnesium 1.9 Rhythm: EKG: ECHO: Stress Test: Cardiac Cath: PCI: CT Surgery: Holter monitor: EPS: PPM: CXR: Chest CT Scan: Radiography Diagnostic Testing: Radiology Impression Chest X-Ray 11/11/22 03:38 IMPRESSION: Bibasilar atelectasis. Electronically Signed: Ruel Sanchez MD at 4:37 EDT , Echocardiogram 11/11/22 06:19 Interpretation Summary The left ventricular ejection fraction is 65 %. The left atrium is moderately enlarged. The right atrium is moderately enlarged. Mild mitral annular calcification. Mild tricuspid valve insufficiency. Right ventricular systolic pressure estimated to be 40 mmHg. The study was technically difficult. Ordering Physician: Mariana Rich Referring Physician: Marcelo Mccullough Chi Performed By: Susanna Ku, REACS, RVT 11/11/22 1404 <Electronically signed by Leah Marie MD> Cosigner Signature (if applicable): CC: Dr. Leah Marie MD; Dr. Mariana Rich DO; Dr. Marcelo Mccullough MD~ Signed [facility] Work Phone: 1(148) 748-847308-23-2023 Progress note Author Jaime Nuñez [facility] November 11, 2022 10:17am Note Date/Time November 11, 2022 8: 00am [facility] Medical Records Department [address] [place] [address] Progress Note - Hospitalist 11/11/225 MR#: [id number] Acct: [id number] Name: IRWIN CORDERO Rep #:[id number] : 1940 82 From: Jaime Nuñez MD PCP: Dr. Marcelo Mccullough MD Status:ADM I N Location: [place] [address] Reason for Visit Reason for Visit: Diagnoses Hypokalemia (11/11/22) Unspecified atrial fibrillation (11/11/22) Chest pain, unspecified (11/11/22) Hyperglycemia, unspecified (11/11/22) Subjective Subjective atient is an 82-year-old gentleman admitted with chest pain diaphoresis as well as palpitations. Was found to be in A-fib with RVR on admission Objective Data Objective Data Vital Signs: Vital Signs Temp Pulse Resp BP Pulse Ox O2 Del Method 97.7 F L 111 H 18 107/74 97 Room Air 11/11/22 06:45 11/11/22 07:00 11/11/22 07:00 11/11/22 07:00 11/11/22 07:00 11/11/22 07:00 Oxygen Delivery Method [1 ( Room Air Initial Baseline)] Oxygen Delivery Method Room Air Weight: 71.2 kg Body Mass Index (BMI) 26.1 Intake & Output: Intake and Output for Last 24 Hours 11/09/22 11/10/22 11/11/22 23:59 23:59 23:59 Intake Total 1008.25 / 1008.25 Balance 1008.25 / 1008.25 Lab / Micro Data 11/11/22 03:40 11/11/22 03:40 Labs: Laboratory Results - last 24 hr 11/11/22 03:40: WBC 7.0, RBC 4.14 L, Hgb 12.0 L, Hct 37.1 L, MCV 89.6, MCH 29.0,MCHC 32.3, RDW Std Deviation 51.0 H, RDW Coeff of Gaby 15.5 H, Plt Count 247, MPV9.0, Immature Gran % (Auto) 0.300, Neut % (Auto) 39.5 L, Lymph % (Auto) 27.3, [place] % (Auto) 27.2 H, Eos % (Auto) 5.3 H, Baso % (Auto) 0.4, Absolute Neuts (auto) 2.8, Absolute Lymphs (auto) 1.90, Nucleated RBC % 0, Anisocytosis 1+, Sodium 141, Potassium 3.4 L, Chloride 106, Carbon Dioxide 26.0, Anion Gap 9, BUN15, Creatinine 0.91, Estim Creat Clear Calc 50.60, Est GFR (MDRD) Af Amer 101, Est GFR (MDRD) Non-Af 84, BUN/Creatinine Ratio 16.4, Glucose 130 H, Calcium 8.7,Magnesium 1.9, TSH 2.35 Radiography Diagnostic Testing: Radiology Impression Chest X-Ray 11/11/22 03:38 IMPRESSION: Bibasilar atelectasis. Electronically Signed: Ruel Sanchez MD at 4:37 EDT , Physical Exam Narrative GENERAL: cooperative HEENT: Atraumatic; normocephalic EYES; Anicteric, Normal Conjunctiva NECK; supple, normal thyroid, RESPIRATORY: Diminished to auscultation CARDIOVASCULAR: Regular S1 S2, GI: soft, normoactive bowel sounds, : No Renal angle tenderness; EXTREMITIES: No edema, no clubbing, MUSCULOSKELETAL: no muscle wasting NEURO: Awake; no lateralizing signs. SKIN: No Rash PSYCH; Flat affect Assessment & Plan Assessment/Plan (1) Atrial fibrillation with rapid ventricular response: PLAN: Plan Patient is an 82-year-old gentleman admitted with chest pain diaphoresis as wellas palpitations. Was found to be in A-fib with RVR on admission 1. A-fib with RVR ? Patient underwent attempted 3 unsuccessful DC cardioversion in the emergency department subsequently started on Cardizem drip admitted to a monitored bed started on apixaban with consultation placed to cardiology 2. Hypokalemia -Corrected per protocol 3. Coronary artery disease ? With previous PCI with TAMIKO to the RCA lesion in 10/05/2016. Patient is currently on guideline directed medical therapy 4. History of DVT ? Patient is on apixaban 5. COPD ? Currently not in exacerbation aerosol treatment as needed 6. Hypertension - Blood pressure controlled, home medications continued with dose adjustment as needed 7. Dyslipidemia -Patient is on statin therapy, continued at home dose 8. GERD ? Patient is on PPI 9. BPH ? Currently not in any medications 10. Anemia - Secondary to chronic disorder monitoring H&H and transfuse if patient becomes symptomatic or hemoglobin falls below 7 11. DVT prophylaxis ? On apixaban Time spent in the patient's overall evaluation,decision-making process, review of diagnostic data, adjustment of management, discussion with other providers, nursing nursing and ancillary staff involved in patient's care documentation, 50 Minutes Charges/Coding Visit Charges Inpatient E&M: 96209 Subs Hosp L3 11/11/22 1017 <Electronically signed by Jaime Nuñez MD> Cosigner Signature (if applicable): CC: ~ Signed [facility] Work Phone: [phone] 148-535008-23-2023 Discharge summary Author Khari Lindsay [facility] November 11, 2022 6:19am Note Date/Time November 11, 2022 4: 03am [facility] Medical Records Department [address] [place] [id number] Emergency Department Summary 11/11/22 MR#: [id number] Acct: [id number] Name: IRWIN CORDERO Rep #:[id number] : [id number] From: Khari Lindsay DO PCP: Dr. Marcelo Mccullough MD Status:ADM I N Location: [place] [address] HPI History of Present Illness Chief Complaint: Chest Pain Informant: patient, family and EMS Narrative Narrative: Patient is an 82-year-old male with past medical history of hyperlipidemia coronary artery disease hypertension and paroxysmal atrial fibrillation. He wasseen in February 2022 secondary to new onset A-fib. However patient's been on Eliquis for multiple years secondary to a chronic left leg DVT. Patient was able to convert to normal sinus rhythm and states he is typically in this. He states that he noticed some chest discomfort around 6 or 7 PM but that it seemedto improve not long after onset. He was able to go to bed and then awoke with chest discomfort. He states that he felt chest discomfort/pain but denies any palpitations or heart racing. He does state that he recently started Trelegy asa new medication but otherwise has been taking his chronic meds as directed. Hestates the symptoms would not resolve and therefore he called EMS. However uponarrival the patient does admit to resolution of his chest discomfort [facility] Medical History Anemia Atherosclerosis of coronary artery of [place] heart without angina pectoris Bronchitis Cough Crohn disease DDD (degenerative disc disease) Deep vein thrombosis of left lower extremity (2012) Essential (primary) hypertension GERD (gastroesophageal reflux disease) Glaucoma Heartburn Hyperlipidemia Multiple allergies New onset a-fib Non-ST elevation (NSTEMI) myocardial infarction (10/03/16) PND (post-nasal drip) Prostate enlargement PUD (peptic ulcer disease) Skin cancer Stomach ulcer Unstable angina Home Medications nitroglycerin 0.4 mg sublingual tablet (Nitrostat) 0.4 mg sublingual Q5-15M PRN Chest Pain 04/06/17 [History Last Taken Unknown] apixaban 5 mg tablet (Eliquis) 5 mg PO BID blood thinner 12/16/17 [History Last Taken 02/20/22 22:00] atorvastatin 20 mg tablet 20 mg PO QHS cholesterol 11/03/18 [History Last Taken 02/20/22 22:00] balsalazide 750 mg capsule 2,250 mg PO BID stomach 07/11/19 [History Last Taken 02/20/22 22:00] pantoprazole 40 mg tablet,delayed release 40 mg PO DAILY stomach 01/26/20 [History Last Taken 02/20/22 09:00] acetaminophen 325 mg tablet (Tylenol) 650 mg PO Q6H PRN Breakthrough Pain, Mild 05/08/21 [History Last Taken Unknown] dextromethorphan polistirex 30 mg/5 mL oral susp ext.release 12hr (Robitussin ER) 10 ml PO Q12H PRN Cough 05/08/21 [History Last Taken Unknown] guaifenesin 600 mg tablet, extended release 12 hr (Mucinex) 600 mg PO Q12H PRN Cough 05/08/21 [History Last Taken Unknown] albuterol sulfate 90 mcg/actuation aerosol inhaler (Ventolin HFA) 2 puff inhalation Q4H PRN PRN Wheezing ##1 10/26/22 [Rx Last Taken Unknown] amlodipine 5 mg tablet 5 mg PO DAILY 11/11/22 [History Last Taken Unknown] Allergy/AdvReac Type Severity Reaction Status Date / Time ragweed pollen AdvReac Intermediate Nasal Verified 11/11/22 03:28 congestion Family History Father Heart disease Mother CVA (cerebral vascular accident) Surgical History H/O colonoscopy History of coronary artery stent placement (10/05/16) History of dental surgery (04/15/21) Previous back surgery Social History household members: spouse Smoking Status: Former smoker second hand exposure: No alcohol intake: never substance use type: does not use ROS ROS ED Constitutional Constitutional ED: Denies chills or fever(s) ENT ENT ED: Denies sore throat Cardiovascular Cardiovascular: Reports chest pain; Denies palpitations or racing heartbeat Respiratory/Chest Respiratory/Chest: Denies cough or dyspnea Gastrointestinal Gastrointestinal: Denies abdominal pain, diarrhea, nausea or vomiting Genitourinary Genitourinary ED: Denies dysuria Musculoskeletal Musculoskeletal: Denies myalgias Integumentary Denies rash Neurologic Neurologic: Denies headache(s) Hematologic/Lymphatic Hematologic/Lymphatic: Reports easy bleeding and easy bruising EXAM Physical Exam Const Vital Signs: 11/11/22 03:29 11/11/22 04:23 11/11/22 04:29 Temperature 97.4 F L Temperature Source Temporal Pulse Rate 152 H 121 H 106 H Pulse Rate [1 (Initial Baseline)] Pulse Rate [3] Pulse Rate [4] Pulse Rate [6] Pulse Rate [7] Pulse Rate [8] Respiratory Rate 19 H 15 17 Respiratory Rate [1 (Initial Baseline)] Respiratory Rate [3] Respiratory Rate [4] Respiratory Rate [6] Respiratory Rate [7] Respiratory Rate [8] Blood Pressure 117/86 H 124/85 H 120/85 H Blood Pressure [1 (Initial Baseline)] Blood Pressure [3] Blood Pressure [4] Blood Pressure [6] Blood Pressure [7] Blood Pressure [8] Blood Pressure Mean 96 98 96 Pulse Ox 99 96 98 Oxygen Delivery Method Oxygen Delivery Method [1 (Initial Baseline)] 11/11/22 04:33 11/11/22 04:45 11/11/22 05:00 Temperature 97.6 F L Temperature Source Pulse Rate 96 103 H 108 H Pulse Rate [1 (Initial Baseline)] Pulse Rate [3] Pulse Rate [4] Pulse Rate [6] Pulse Rate [7] Pulse Rate [8] Respiratory Rate 22 H 20 H 18 Respiratory Rate [1 (Initial Baseline)] Respiratory Rate [3] Respiratory Rate [4] Respiratory Rate [6] Respiratory Rate [7] Respiratory Rate [8] Blood Pressure 114/65 111/77 96/62 Blood Pressure [1 (Initial Baseline)] Blood Pressure [3] Blood Pressure [4] Blood Pressure [6] Blood Pressure [7] Blood Pressure [8] Blood Pressure Mean 81 73 Pulse Ox 95 97 95 Oxygen Delivery Method Room Air Oxygen Delivery Method [1 (Initial Baseline)] 11/11/22 04:57 Temperature Temperature Source Pulse Rate Pulse Rate [1 (Initial Baseline)] 101 H Pulse Rate [3] 134 H Pulse Rate [4] 124 H Pulse Rate [6] 108 H Pulse Rate [7] 110 H Pulse Rate [8] 89 Respiratory Rate Respiratory Rate [1 (Initial Baseline)] 16 Respiratory Rate [3] 16 Respiratory Rate [4] 16 Respiratory Rate [6] 17 Respiratory Rate [7] 14 Respiratory Rate [8] 10 L Blood Pressure Blood Pressure [1 (Initial Baseline)] 118/87 H Blood Pressure [3] 96/62 Blood Pressure [4] 96/62 Blood Pressure [6] 127/85 H Blood Pressure [7] 123/76 H Blood Pressure [8] 109/79 Blood Pressure Mean Pulse Ox Oxygen Delivery Method Oxygen Delivery Method [1 (Initial Baseline)] Room Air Positive well nourished and well developed General Appearance ED: well developed; Negative for diaphoretic or pallor HEENT HEENT Narrative: Normocephalic atraumatic Eyes PERRL and EOMs intact bilaterally General Eye ED: Negative for scleral icterus Neck supple and no JVD Chest Wall palpation of chest normal Chest Narrative: No bony deformity or crepitus noted Resp normal respiratory effort Resp Narrative: Breath sounds are diminished throughout with consistent with past medical history however no acute signs of respiratory distress such as tachypnea or accessory muscle use or dyspnea with speech Cardio Rate: other Other Details: Irregularly irregular rhythm with tachycardic rate consistent with atrial fibrillation with rapid ventricular response Radial and carotid pulses are equal and symmetric GI normal to inspection, nondistended, normoactive bowel sounds, non-tender, non-distended and no masses GI Narrative: No voluntary guarding or rigidity. No pulsatile mass. No fluid wave noted Auscultation: normoactive bowel sounds Palpation: soft Extremity Extremity Narrative: +2 pitting edema to the bilateral lower extremities that is equal and symmetric and chronic per patient There is tenderness to palpation along the left calf but patient states this is also chronic and where he has his chronic DVT. Neuro oriented x3 and CN's II-XII intact bilaterally Sensorium / Orientation: alert Psych mental status grossly normal Skin no rashes or lesions noted General Skin Exam: Negative for jaundice or pallor MDM MDM MDM Narrative Medical decision making narrative: Patient presented to ER awake and alert with spontaneous resolution of his reported chest discomfort. Despite having resolution of pain he was found to bein A-fib with RVR going approximately 150 bpm. Patient is currently anticoagulated on Eliquis and does have a past medical history of paroxysmal A-fib but appears to have not been in this dysrhythmia since February 2022. Secondary to the A-fib with RVR a basic work-up was obtained. Labs revealed a slightly low potassium at 3.4 but otherwise no clinically significant finding. Chest x-ray did not show any lung pathology such as pneumonia pneumothorax or widening the mediastinum. The patient was initially given a bolus of Cardizem which did help reduce his heart rate but this quickly wore off and his heart rate climbed back into the 130s to 140s. He was then medicated with 3 doses of 5 mg IV Lopressor which also help reduce his heart rate but only transiently. As the patient is anticoagulated on Eliquis and has a history of A-fib I did elect to perform a synchronized cardioversion based on his persistent tachycardia. The patient underwent conscious sedation with propofol. He was given a total of 30 mg. The patient then underwent synchronized cardioversion at 100 150 and twice at 360 J without successful cardioversion. Secondary to the persistent A-fib with RVR did discuss the case with cardiology on-call. They recommend potassium be replaced orally as is only down by 0.1. They also recommend patient be started on a diltiazem drip and admitted to the medical service. The case was then discussed with medicine on-call and they do agree toaccept the patient at this time. As the patient is on Eliquis and has no chest pain upon arrival to the ER do not feel the need for a CTA of the chest History & Record Review Discussion w/independent historian: EMS personnel, Patient and Family Lab Data Attestation: I reviewed the patient's lab results. Labs: Laboratory Results - last 24 hr 11/11/22 03:40 WBC 7.0 RBC 4.14 L Hgb 12.0 L Hct 37.1 L MCV 89.6 MCH 29.0 MCHC 32.3 RDW Std Deviation 51.0 H RDW Coeff of Gaby 15.5 H Plt Count 247 MPV 9.0 Immature Gran % (Auto) 0.300 Neut % (Auto) 39.5 L Lymph % (Auto) 27.3 [place] % (Auto) 27.2 H Eos % (Auto) 5.3 H Baso % (Auto) 0.4 Absolute Neuts (auto) 2.8 Absolute Lymphs (auto) 1.90 Nucleated RBC % 0 Anisocytosis 1+ Sodium 141 Potassium 3.4 L Chloride 106 Carbon Dioxide 26.0 Anion Gap 9 BUN 15 Creatinine 0.91 Estim Creat Clear Calc 50.60 Est GFR (MDRD) Af Amer 101 Est GFR (MDRD) Non-Af 84 BUN/Creatinine Ratio 16.4 Glucose 130 H Calcium 8.7 Magnesium 1.9 TSH 2.35 Radiography Diagnostic Testing: Clinical Impression(s) from Imaging Studies Chest X-Ray 11/11/22 03:38 IMPRESSION: Bibasilar atelectasis. Electronically Signed: Ruel Sanchez MD at 4:37 EDT , Chest x-ray as interpreted by the emergency medicine physician reveals bibasilaratelectasis without acute infiltrate pneumothorax or widening of the mediastinum Management Discussion w/another healthcare provider: Hospitalist and House Visitor Procedures Procedural Sedation 1 (Initial Baseline): Consent Signed: Yes Any Problems With Anesthesia: No You/Your family experience fever (hyperthermia) w/anesthesia: No Sedation medication: Propofol Dose: 30 Route: IV Maliampati Score: Class II ASA Classification: III Critical Care Time Critical Care Time: Yes Critical care time (excluding procedures): Discussing w/Patient &/or Family/CareGiver, Discussing w/Consultants and - (Please note critical care time of 33 minutes) Discharge Plan Dx/Rx/DC Orders Clinical Impression: Current use of nursing home anticoagulation, Atrial fibrillation with rapid ventricular response, Hypokalemia Disposition Disposition: Acute Care Hospital [facility] Discharge Date/Time: 11/11/22 06:09 What to do if you have Problems For any increased pain, shortness of breath, bleeding, nausea or vomiting, chestpain, or any unexpected problems, contact your Primary Care Provider. Call [facility] ([phone]) or report to the closest Emergency Room. Call 911 if necessary. 11/11/22618 <Electronically signed by Khari Lindsay DO> Cosigner Signature (if applicable): CC: Dr. Marcelo Mccullough MD ~ Signed [facility] Work Phone: [phone] 317-542808-23-2023 History and physical note Author Mariana Rich [facility] November 11, 2022 6:19am Note Date/Time November 11, 2022 6: 19am [facility] Medical Records Department [address] [place] [address] H&P Exam - Hospitalist 11/11/22600 MR#: [id number] Acct: [id number] Name: IRWIN CORDERO Rep #:[id number] : 1940 82 From: Mariana Rich DO PCP: Dr. Marcleo Mccullough MD Status:ADM I N Location: [place] [address] HPI - General General Date of Admission: 11/11/22 Date of Service: 11/11/22 Chief Complaint: Chest pain HPI Narrative IRWIN CORDERO, is a 82 M who presented to the emergency department at [facility] on 11/11/2022 complaining of chest pain. He reported that about 6 or 7 PM he had some chest pain that improved not long after onset and hewent was able to go to bed and then awoke at about 3 AM with chest discomfort. He denied feeling any palpitations or that his heart was racing. With his chestpain he became concerned and decided to call EMS however upon their arrival his chest pain had resolved. In route he was noted to have heart rates as high as 180 and rate appear to be irregularly irregular. Upon arrival EKG showed A-fib with RVR. Patient was recently diagnosed with A-fib with RVR in February 2022. 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 He was seen by cardiology in May and was taking metoprolol 25 mg p.o. twice daily. His med reconciliation upon admission did not show that hewas still on metoprolol. I discussed this with him and he is unclear why he is not taking metoprolol anymore. It is crossed off his med list but he is uncertain as to why this is or who discontinue the medication. Given the fact he is on chronic anticoagulation, the emergency department physician attempted cardioversion x3 but was unable to successfully cardiovert him back to normal sinus rhythm. He elected to try cardioversion after he was somewhat refractory to a Cardizem bolus and IV metoprolol. At the time of my evaluation he remainedin A- fib with RVR however heart rates were anywhere from 90-120. At the time myevaluation patient was asymptomatic. Vital signs on presentation demonstrated temperature of 97.4, heart rate 152, blood pressure was 117/86, respiratory rate was 19 and oxygen saturation was 99%on room air. CBC shows chronic stable anemia with a hemoglobin of 12. He does have a monocytosis and eosinophilia on his CBC. His chemistry panel was overallunremarkable however did showed mild hypokalemia with potassium of 3.4 which wasreplaced in the emergency department and a glucose of 130. The patient does nothave history of diabetes. His magnesium level was normal at 1.9. TSH was 2.35. EKG showed A-fib with RVR with normal intervals and slightly depressed ST-T wave segments that improved with improved heart rate. His chest x-ray was unremarkable for any acute findings. [facility] Medical History Anemia Atherosclerosis of coronary artery of [place] heart without angina pectoris Bronchitis Cough Crohn disease DDD (degenerative disc disease) Deep vein thrombosis of left lower extremity (2012) Essential (primary) hypertension GERD (gastroesophageal reflux disease) Glaucoma Heartburn Hyperlipidemia Multiple allergies New onset a-fib Non-ST elevation (NSTEMI) myocardial infarction (10/03/16) PND (post-nasal drip) Prostate enlargement PUD (peptic ulcer disease) Skin cancer Stomach ulcer Unstable angina Home Medications nitroglycerin 0.4 mg sublingual tablet (Nitrostat) 0.4 mg sublingual Q5-15M PRN Chest Pain 04/06/17 [History Last Taken Unknown] apixaban 5 mg tablet (Eliquis) 5 mg PO BID blood thinner 12/16/17 [History Last Taken 02/20/22 22:00] atorvastatin 20 mg tablet 20 mg PO QHS cholesterol 11/03/18 [History Last Taken 02/20/22 22:00] balsalazide 750 mg capsule 2,250 mg PO BID stomach 07/11/19 [History Last Taken 02/20/22 22:00] pantoprazole 40 mg tablet,delayed release 40 mg PO DAILY stomach 01/26/20 [History Last Taken 02/20/22 09:00] acetaminophen 325 mg tablet (Tylenol) 650 mg PO Q6H PRN Breakthrough Pain, Mild 05/08/21 [History Last Taken Unknown] dextromethorphan polistirex 30 mg/5 mL oral susp ext.release 12hr (Robitussin ER) 10 ml PO Q12H PRN Cough 05/08/21 [History Last Taken Unknown] guaifenesin 600 mg tablet, extended release 12 hr (Mucinex) 600 mg PO Q12H PRN Cough 05/08/21 [History Last Taken Unknown] albuterol sulfate 90 mcg/actuation aerosol inhaler (Ventolin HFA) 2 puff inhalation Q4H PRN PRN Wheezing ##1 10/26/22 [Rx Last Taken Unknown] amlodipine 5 mg tablet 5 mg PO DAILY 11/11/22 [History Last Taken Unknown] Allergy/AdvReac Type Severity Reaction Status Date / Time ragweed pollen AdvReac Intermediate Nasal Verified 11/11/22 03:28 congestion Family History Father Heart disease Mother CVA (cerebral vascular accident) Surgical History H/O colonoscopy History of coronary artery stent placement (10/05/16) History of dental surgery (04/15/21) Previous back surgery Social History household members: spouse Smoking Status: Former smoker second hand exposure: No alcohol intake: never substance use type: does not use ROS Constitutional Constitutional: Denies anorexia, change in weight, chills, fatigue, fever(s), malaise, night sweats, weakness or other Eyes Eyes: Denies blurry vision, change in eye color, change in vision, discharge from eye(s), double vision, erythema, eye pain, loss of vision or other ENT HEENT: Denies abnormal hearing, dysphagia, ear pain, epistaxis, headache(s), hearing loss, nasal congestion, nasal discharge, post nasal drip, sinus pressure, sore throat or other Cardiovascular Cardiovascular: Denies chest pain, claudication, dyspnea on exertion, edema, lightheadedness, orthopnea, palpitations, paroxysmal nocturnal dyspnea, rapid heart rate, syncope or other Respiratory/Chest Respiratory/Chest: Denies cough, dyspnea, excessive phlegm production, hemoptysis, productive cough, shortness of breath at rest, shortness of breath with exertion, wheezing or other Gastrointestinal Gastrointestinal: Denies abdominal pain, coffee ground emesis, constipation, diarrhea, dyspepsia, hematemesis, hematochezia, loose stools, melena, nausea, vomiting or other Genitourinary Genitourinary: Denies burning urination, difficulty urinating, dysuria, hematuria, nocturia, urinary frequency, urinary hesitancy, urinary incontinence,urinary urgency or other Musculoskeletal Musculoskeletal: Denies arthralgias, back pain, joint pain, joint stiffness, joint swelling, myalgias, neck pain or other Neurologic Neurologic: Denies abnormal gait, abnormal speech, confusion, disequilibrium, dizziness, focal weakness, headache(s), numbness, paresthesias, seizure-like activity, seizures, syncope, tingling, tremor(s) or other Psychiatric Psychiatric: Denies anxiety, depression, homicidal ideation, suicidal ideation or other Endocrine Endocrinology: Denies change in body appearance, cold intolerance, excessive sweating, heat intolerance, polydipsia, polyuria or other Allergic/Immunologic Allergic/Immunologic: Denies rhinitis, hives, eczemia, asthma or other Vital Signs Vital Signs Vital Signs: 11/11/22 03:29 11/11/22 04:23 11/11/22 04:29 Temperature 97.4 F L Temperature Source Temporal Pulse Rate 152 H 121 H 106 H Pulse Rate [1 (Initial Baseline)] Pulse Rate [3] Pulse Rate [4] Pulse Rate [6] Pulse Rate [7] Pulse Rate [8] Respiratory Rate 19 H 15 17 Respiratory Rate [1 (Initial Baseline)] Respiratory Rate [3] Respiratory Rate [4] Respiratory Rate [6] Respiratory Rate [7] Respiratory Rate [8] Blood Pressure 117/86 H 124/85 H 120/85 H Blood Pressure [1 (Initial Baseline)] Blood Pressure [3] Blood Pressure [4] Blood Pressure [6] Blood Pressure [7] Blood Pressure [8] Blood Pressure Mean 96 98 96 Pulse Ox 99 96 98 Oxygen Delivery Method Oxygen Delivery Method [1 (Initial Baseline)] 11/11/22 04:33 11/11/22 04:45 11/11/22 05:00 Temperature 97.6 F L Temperature Source Pulse Rate 96 103 H 108 H Pulse Rate [1 (Initial Baseline)] Pulse Rate [3] Pulse Rate [4] Pulse Rate [6] Pulse Rate [7] Pulse Rate [8] Respiratory Rate 22 H 20 H 18 Respiratory Rate [1 (Initial Baseline)] Respiratory Rate [3] Respiratory Rate [4] Respiratory Rate [6] Respiratory Rate [7] Respiratory Rate [8] Blood Pressure 114/65 111/77 96/62 Blood Pressure [1 (Initial Baseline)] Blood Pressure [3] Blood Pressure [4] Blood Pressure [6] Blood Pressure [7] Blood Pressure [8] Blood Pressure Mean 81 73 Pulse Ox 95 97 95 Oxygen Delivery Method Room Air Oxygen Delivery Method [1 (Initial Baseline)] 11/11/22 04:57 11/11/22 05:56 Temperature Temperature Source Pulse Rate 93 Pulse Rate [1 (Initial Baseline)] 101 H Pulse Rate [3] 134 H Pulse Rate [4] 124 H Pulse Rate [6] 108 H Pulse Rate [7] 110 H Pulse Rate [8] 89 Respiratory Rate Respiratory Rate [1 (Initial Baseline)] 16 Respiratory Rate [3] 16 Respiratory Rate [4] 16 Respiratory Rate [6] 17 Respiratory Rate [7] 14 Respiratory Rate [8] 10 L Blood Pressure 101/66 Blood Pressure [1 (Initial Baseline)] 118/87 H Blood Pressure [3] 96/62 Blood Pressure [4] 96/62 Blood Pressure [6] 127/85 H Blood Pressure [7] 123/76 H Blood Pressure [8] 109/79 Blood Pressure Mean 77 Pulse Ox Oxygen Delivery Method Oxygen Delivery Method [1 (Initial Baseline)] Room Air Weight Weight: 73.1 kg Body Mass Index (BMI) 27.6 Physical Exam Const alert, oriented x3, no apparent distress, average body habitus and well nourished Constitutional Narrative: Elderly white male sitting up in bed, family at bedside, patient appears comfortable and nontoxic General Appearance: cooperative HEENT normocephalic, head/scalp atraumatic, hearing grossly normal bilaterally and moist oral mucous membranes HEENT Narrative: Dentition is poor, Mallampati is 2, no thrush Eyes PERRL, EOMs intact bilaterally and conjunctivae normal Eyes Narrative: No scleral icterus Neck no lymphadenopathy, supple, no JVD and no carotid bruits Neck Narrative: Trachea midline, no thyroid enlargement Resp normal respiratory effort, no retractions, no use of accessory muscles and clearto auscultation bilaterally Resp Narrative: Diffusely diminished but clear Auscultation: Negative for rales, rhonchi or wheezes Cardio S1 normal heart sound, S2 normal heart sound, no murmurs, no rub, no gallops andno clicks; Negative for regular rate or regular rhythm Cardio Narrative: Mild tachycardia with irregularly irregular rhythm GI normal to inspection, nondistended, normoactive bowel sounds, soft to palpation and non-tender Extremity no clubbing, cyanosis or edema Extremity Narrative: Tenderness on medial left tibial region with an area of chronic discoloration and appears to have varicose veins Skin skin turgor normal, no jaundice, no petechiae and no mottling Skin Narrative: Abnormal as noted above but no other significant abnormalities noted Neuro oriented x3, CN's II-XII intact bilaterally, moves all extremities and no focal motor deficits Speech: speech normal Psych affect normal Psych Narrative: Very pleasant, interacts appropriately Results Lab / Micro Data Attestation: I reviewed the patient's lab results. 11/11/22 03:40 11/11/22 03:40 Labs: Laboratory Results - last 24 hr 11/11/22 03:40: WBC 7.0, RBC 4.14 L, Hgb 12.0 L, Hct 37.1 L, MCV 89.6, MCH 29.0,MCHC 32.3, RDW Std Deviation 51.0 H, RDW Coeff of Gaby 15.5 H, Plt Count 247, MPV9.0, Immature Gran % (Auto) 0.300, Neut % (Auto) 39.5 L, Lymph % (Auto) 27.3, [place] % (Auto) 27.2 H, Eos % (Auto) 5.3 H, Baso % (Auto) 0.4, Absolute Neuts (auto) 2.8, Absolute Lymphs (auto) 1.90, Nucleated RBC % 0, Anisocytosis 1+, Sodium 141, Potassium 3.4 L, Chloride 106, Carbon Dioxide 26.0, Anion Gap 9, BUN15, Creatinine 0.91, Estim Creat Clear Calc 50.60, Est GFR (MDRD) Af Amer 101, Est GFR (MDRD) Non-Af 84, BUN/Creatinine Ratio 16.4, Glucose 130 H, Calcium 8.7,Magnesium 1.9, TSH 2.35 Radiology Impression Chest X-Ray 11/11/22 03:38 IMPRESSION: Bibasilar atelectasis. Electronically Signed: Ruel Sanchez MD at 4:37 EDT , Assessment & Plan Assessment/Plan (1) Hypokalemia: (2) Atrial fibrillation with rapid ventricular response: (3) Chest pain: (4) Hyperglycemia: PLAN: Plan A-fib with RVR -DCC cardioversion attempted x3 in the emergency department without conversion -Echocardiogram from 2021 showed mild left concentric LVH, EF 55%, mildly dilated RV, severely dilated LA and moderate focal mitral valve calcification -I suspect it would be difficult to keep him in normal sinus rhythm with his severely dilated LA -Patient diagnosed with A-fib with RVR in February 2022 -Is on chronic apixaban for DVTs previously and now on for DVTs and A-fib with RVR--> [id number] score is 4 -Patient had been on metoprolol 25 mg p.o. twice daily at his last cardiology appointment on 06/08/2022 and this was continued at that time however it has since been discontinued but the patient is unclear as to who discontinued it andwhy they did so -Restart metoprolol 25 mg p.o. twice daily -Start Cardizem drip per cardiology's recommendations to ER physician -TSH was within normal limits -Continue home apixaban -Cardiology consultation Chest pain -Currently resolved -Mild ST depression noted with tachycardia however this is since resolved with improved heart rates -Troponin was not obtained on arrival and unfortunately patient has had cardioversion x3 so I would suspect his troponin will be elevated at this time therefore I will defer any cycling of his cardiac enzymes -Check echocardiogram to assess wall motion -I do suspect that his chest pain was likely related to his RVR Hyperglycemia -Patient does not have history of diabetes -Check hemoglobin A1c Hypokalemia -Patient given oral potassium in the emergency department -Repeat a.m. potassium -Check a.m. magnesium level CAD/HTN/HPL -PCI-TAMIKO-RCA 3 x 16 mm Promus Synergy TAMIKO 10/05/16 -Hold home amlodipine with reinitiation of metoprolol and utilization of Cardizem drip -Continue home atorvastatin History of DVT -Continue apixaban COPD -Remote history of tobacco abuse -PFTs done on 07/01/2022 showed an FEV1 of 74% predicted and partially reversiblemild large airway obstructive ventilatory defect resulting in air trapping and hyperinflation -As needed albuterol is available GERD/peptic ulcer disease -Continue Protonix 40 mg daily Chronic anemia -Hemoglobin stable -Continue to monitor especially with full anticoagulation Chronic bronchitis/chronic cough -Continue home guaifenesin -Continue as needed dextromethorphan BPH -Patient takes no chronic medications -Monitor clinically DVT prophylaxis -Full anticoagulation with apixaban CODE STATUS -Full code is verified prior to admission Charges/Coding Visit Charges Inpatient E&M: 48489 Init Hosp L2 11/11/22 0618 <Electronically signed by Mariana Rich DO> Cosigner Signature (if applicable): CC: Dr. Mariana Rich DO; Dr. Marcelo Mccullough MD~ Signed ADDENDUM by Dr. Mariana Rich DO on 11/11/22 at 0619 Visit Charges Inpatient E&M: 76691 Init Hosp L3 11/11/22 0619<Electronically signed by Mariana Rich DO> Cosigner Signature (if applicable): cc: Dr. Mariana Rich DO; Dr. Marcelo Mccullough MD ~* Signed [facility] Work Phone: [phone]) 589-895403-27-2023 Evaluation + Plan noteExtracted from: Title:Clinical Document Author:ERICK BELTRAN Date:06/15/22 [place] ADMISSION HISTORY AN D PHYSICIAL CHIEF COMPLAINT: HISTORY OF PRESENT ILLNESS: REVIEW OF SYSTEMS: ACTIVE PROBLEMS: (6) Atrial fibrillation (06379532) Dysphagia (71488995) GERD (gastroesophageal reflux disease) (858240615) Hiatal hernia (559982635) AK (myocardial infarction) (15385690) Ulcerative colitis (516102412) MEDICATIONS: Active Inpt Meds: None Active PRN Meds: None One Time Meds: None Active IV Meds: Lactated Ringers Infusion 1,000 mL (LR 1,000 mL) Start: 06/15/22 9:31:00 EDT, Rate: 50 mL/hr, 06/15/22 9:31:00 EDT ALLERGIES: (1) No Known Medication Allergies FAMILY HISTORY: SOCIAL HISTORY: PHYSICAL EXAM: VITALS: NruvflQlxoAXSlsarZRKeH3DKO7XaylHz(kg) 06/15 09:43----416293--69/27 70.5 24 Hr Tmax: No Data Available [...] changes to the H&P unless noted below. [facility] 03-27-2023 Hospital Discharge instructions Patient Education 06/15/2022 10:35:03 Monitored Anesthesia Care, Care After Monitored Anesthesia Care, Care After These instructions provide you with information about caring for yourself after your procedure. Your health care provider may also give you more specific instructions. Your treatment has been plannedaccording to current medical practices, but problems sometimes [...] have someone help care for you until youare awake and alert. Rest as needed. Do [...] before eating solid foods. General instructions Take oboy-oyx-atugcwn and prescription medicines only as told by [...] 06/28/2016 Document Revised: 06/06/2018 Document Reviewed: 06/28/2016 [employer] Patient Education 2020 [employer]. 06/15/2022 10:35:01 9 - AO Minor [...] 05/30/13 Custom Follow Up Care 05/27/2022 15:02:39 With:ERICK BELTRAN MD Address: [address] [facility] [address] [place] [address]- [phone] When: Unknown Comments:Follow-up as needed [facility] 03-27-2023 Summary of episode note Discharge Instructions Thank you for allowing [facility] to assist you with your healthcare needs. The following is importantdischarge information regarding your hospital visit. Your Care Team NYDIA MCCULLOUGH MD What to do next Follow Up Appointments Follow Up with ERICK BELTRAN MD When Why: Follow-up as needed Where: [address] [place] [address]- [phone] Allergies No Known Medication Allergies Medications Please ask your primary doctor or pharmacist before taking any other medication not listed, including over the counter drugs, herbal medications, vitamins and or supplements as they may interact withyour home medications. What How Much When Instructions [...] more specific instructions. Your treatment has been plannedaccording to current medical practices, but problems sometimes [...] have someone help care for you until youare awake and alert. Rest as needed. Do [...] before eating solid foods. General instructions Take hypb-hxu-wvabrre and prescription medicines only as told by [...] 06/28/2016 Document Revised: 06/06/2018 Document Reviewed: 06/28/2016 [employer] Patient Education 2020 [employer] Esophagogastroduodenoscopy This is an endoscopic procedure (a [...] to receive it can visit one of [facility] vaccine clinics. There are many vaccine clinic locations within the [facility]. For locations and available times, please visit https://gettheshot.coronavirus.[place].gov/. It is important to note that some COVID mobile vaccine clinics are held outdoors and may be canceled in rainy or stormy conditions. To learn more about pediatric vaccinations (ages 5-11), we invite you to visit the [facility] webpage. https://www.[email or web address].org/pages/2618-Kgeev-Edhgugjwywo-Loplqnpmtb-Bxxhb-Kte stions.htmlTo learn more about the COVID-19 vaccine, we invite you to visit the CDC website for a list of frequently asked questions. https://www.cdc.gov/coronavirus/2019-ncov/vaccines/faq.html [employer] [facility] Patient Portal Access Instructions: Stay connected with your healthcare team and access your personal medical information anytime with the [facility] Patient Portal.If you would like a full copy of your medical records, please contact the [facility] Medical Records Department, Wednesday through Wednesday between 8a.m. and 4:30p.m. Please follow the directions below to access the portal: 1.Access the email account you provided upon registration to the [facility].2.Look for an invitation email from [facility].3.Open the email and access the invitation link: Accept Invitation to [facility]4.Fill in the required odom to create your account. Sign into www.[employer] with your username and password that you [...] you will allow to register on the [email or web address] Patient Portal for access to your information. You can also access the [email or web address] Patient Portal on the [employer]. Simply click on Health Records under [employer] and then click on the [employer] logo. HOW TO SAFELY DISPOSE OF PRESCRIPTION MEDICATIONS Please use one of the following methods to safely dispose of your unused medications. 1.Use a drug disposal kit: the drug disposal pouch allows you to safely discard your old and unuseddrugs. Ask your nurse to give you one when you are discharged.2.Visit a local take-back location: Many local pharmacies and police departments have programs that collect old and unwanted prescriptiondrugs. Call your local pharmacy or go to http://Code71.Clue App/8U3Rb5f to find one close to you.3.Make use of household items: Use cat litter or old coffee grounds to dispose medications if other options arenot available. Mix your drugs with these household products, seal them in an airtight container andthrow it into the garbage. Call [facility]: [phone] to be sure your drugs can be [...] aware that I should contact my doctor. Patient/Ophthalmologist Retina Specialist Signature: Date/Time: Relationship to Patient: Witness Name/Signature: Date/Time: [facility]03-27-2023 Anesthesiology Consult note Patient: IRWIN CORDERO Age: 82 years Sex: Male : 1940 Associated Diagnoses: None Author: JACQUIE ARCHER APRN-PARTNER MANAGER Assessment Postanesthesia assessment Vitals: Vital signs [...] by JACQUIE ARCHER on 06/15/2022 10:26 AM [facility]03-27-2023 Anesthesiology Consult note Patient: IRWIN CORDERO Age: [...] Dysphagia GERD (gastroesophageal reflux disease) Hiatal hernia AK (myocardial infarction) Ulcerative colitis Histories Past Medical History: No active or resolved past medical history items have been selected or recorded. Family History: Heart disease Father Procedure history: Spinal decompression with discectomy ([id number]). Comments: 06/15/2022 9:39 EDT - Anuj Tejada RN lumbar Social History [...] Height 162.6 cm Admission Weight 70.5 kg [place] Body Weight 59.24 kg BSA Admission 1.76 [...] Attendee SN - CAt - Role Performed PARTNER MANAGER SN - CAt - Role Performed Procedure Nurse SN - CAt - Role Performed [employer] SN - CAt - Role Performed Primary [...] Person #1 We May Share GHAZALA CORDERO [phone] Designated Person #1 Relationship Spouse Height 162.6 cm Admission Weight 70.5 kg [place] Body Weight 59.24 kg BSA Admission 1.76 [...] evident Teaching Method Explanation Preferred Written Language Thai Preferred Spoken Language Thai Information Given by Patient Patient's Current Physicians JAMEL Discharge To, Anticipated Home independently Prev Test [...] Intake 06/14/2022 18:00 . Assessment and Plan Stateless Society of Anesthesiologists (ASA) physical status classification: Class III. Anesthetic Preoperative Plan Anesthetic technique: MAC. Informed consent: signed by patient. Digitally Signed by JACQUIE ARCHER on 06/15/2022 10:13 AM [facility]03-27-2023 Note [place] ADMISSION HISTORY AND PHYSICIAL CHIEF COMPLAINT: HISTORY OF PRESENT ILLNESS: REVIEW OF SYSTEMS: ACTIVE PROBLEMS: (6) Atrial fibrillation (94044498) Dysphagia (06098612) GERD (gastroesophageal reflux disease) (914718560) Hiatal hernia (726565826) AK (myocardial infarction) (59043688) Ulcerative colitis (944243782) MEDICATIONS: Active Inpt Meds: None Active PRN Meds: None One Time Meds: None Active IV Meds: Lactated Ringers Infusion 1,000 mL (LR 1,000 mL) Start: 06/15/22 9:31:00 EDT, Rate: 50 mL/hr, 06/15/22 9:31:00 EDT ALLERGIES: (1) No Known Medication Allergies FAMILY HISTORY: SOCIAL HISTORY: PHYSICAL EXAM: VITALS: VskdqmVaclVTUkgbyDBIyL5AKV0XnutAh(kg) 06/15 09:43----247502--32/27 70.5 24 Hr Tmax: No Data Available [...] H&P unless noted below. Digitally Signed by ERICK BELTRAN MD on 06/15/2022 10:12 AM [facility]06-20-2021 Emergency department Note* Hali Adames RN - 09/08/2020 1:14 PM EDT Pt drinking water without difficulty * Delfin Conner DO - 09/08/2020 12:54 PM EDT Emergency Department Report [facility] EMERGENCY DEPARTMENT Service Date:.09/08/20 PCP: Nydia Mccullough Chief Complaint: Chief Complaint Patient presents with Foreign Body Swallowed Pt arrives via EMS with c/o choking on steak at a restaraunt where the Heimlich was performed. Foodparticle was expelled however, pt states he still [...] he feels that he is swallowing appropriately. Hestates that he still has a little bit of a sensation of something being there but saliva and fluidsappear to be going down well. Does not [...] Social Gatherings with Friends and Family: Attends [employer] Services: Active Member of Clubs or Organizations: Attends Club or Organization Meetings: Marital Status: Intimate Partner Violence: Fear of Current or Ex-Partner: Emotionally Abused: Physically Abused: Sexually Abused: Physical Exam: @PHYSICALEXAM@ Patient is awake alert and active. Vital signs were reviewed. Mental status is good. He seems to bewanting to go home because he states that he is feeling well. The heart is regular rate and rhythm.No arrhythmias. Lungs cannot demonstrate respiratory distress and aspiration seems to be unlikely. Abdomen thin and soft. Bowel sounds present. Mucosa moist. Skin turgor is good. Swallowing saliva well. He was given fluids any swallowing fluids well. Vital Signs During ED Visit Patient Vitals for the past 24 hrs: BP Temp Temp src Pulse Resp SpO2 Height Weight 09/08/20 1228 1.727 m (5' 8) 80.9 kg (178 lb 4.8 oz) 09/08/20 [...] go home. I told him that would likedwatching this for sure. Time to make sure that he continues to be doing well and I wanted to make sure that he was able to drink fluids so glass of water was given. I do not think that he needs bloodwork or x-rays at this time. Do not [...] information. . Delfin Conner DO 09/08/20 1257 * Hali Adames RN - 09/08/2020 12:23 PM EDT Pt states has a little bit of a sore throat. States has bronchitis so is coughing due to that. Denies rib or chest pain * Mignno Alba RN - 09/08/2020 12:19 PM EDT Bed: E011 Expected date: Expected time: Means of arrival: Comments: [facility] Susanna Fontaine [facility] November 12, 2022 12:00pm Note Date/Time November 12, 2022 12 :00pm [facility] Medical Records Department [address] [place] [id number] Counseling Note - Pharmacy 11/12/22 1159 MR#: [id number] Acct: [id number] Name: IRWIN CORDERO Rep #:[id number] : 1940 82 From: Susanna Fontaine PCP: Dr. Marcelo Mccullough MD Status:ADM I N Y Location: [place] [address] Pharmacy [facility] Pharmacy Service has performed discharge medication reconciliation and counseling for this patient. The patient was counseled on the following discharge medications and changes in medications for homegoing were reviewed. 1. AMIODARONE The Reason for Use, instructions for use, and potential side effects were reviewed for all new medications. The patient's questions regarding all of their medications were answered. The patient was able to verbally demonstrate an understanding of their dischargemedications. The patient's discharge medication list was reviewed for discrepancies and discrepancies were resolved. Patient counselled by Penny Waite PharmD Candidate Medications at Discharge Home Medications nitroglycerin 0.4 mg sublingual tablet (Nitrostat) 0.4 mg sublingual Q5-15M PRN Chest Pain 04/06/17 apixaban 5 mg tablet (Eliquis) 5 mg PO BID blood thinner 12/16/17 atorvastatin 20 mg tablet 20 mg PO QHS cholesterol 11/03/18 balsalazide 750 mg capsule 2,250 mg PO BID stomach 07/11/19 pantoprazole 40 mg tablet,delayed release 40 mg PO DAILY stomach 01/26/20 acetaminophen 325 mg tablet (Tylenol) 650 mg PO Q6H PRN Breakthrough Pain, Mild 05/08/21 dextromethorphan polistirex 30 mg/5 mL oral susp ext.release 12hr (Robitussin ER) 10 ml PO Q12H PRN Cough 05/08/21 guaifenesin 600 mg tablet, extended release 12 hr (Mucinex) 600 mg PO Q12H PRN Cough 05/08/21 albuterol sulfate 90 mcg/actuation aerosol inhaler (Ventolin HFA) 2 puff inhalation Q4H PRN PRN Wheezing ##1 10/26/22 amlodipine 5 mg tablet 5 mg PO DAILY 11/11/22 amiodarone 200 mg tablet 200 mg PO DAILY #90 tabs 11/12/22 11/12/22 1200 <Electronically signed by Susanna Fontaine > Date _ Susanna Fontaine Cosigner Signature (if applicable): Date CC: ~ Signed [facility] Work Phone: Discharge summary Author Vito Fernandes [facility] October 26, 2022 10:48am Note Date/Time October 26, 2022 9:3 6am [facility] Medical Records Department [address] [place] [address] Emergency Department Summary 10/26/22 MR#: [id number] Acct: [id number] Name: IRWIN CORDERO Rep #:[id number] : 1940 82 From: Vito Fernandes MD PCP: Dr. Marcelo Mccullough MD Status:REG E R Location: ED HPI History of Present Illness Chief Complaint: Shortness of Breath Detail of Chief Complaint: Exact onset is unknown since patient is not a good informant Informant: patient and family Onset/Context/Timing Onset: - (Unknown when it got worse from baseline.) Context: - (Unknown) Timing: Continuous Quality: Positive for Dyspnea on exertion; Negative for Orthopnea or PND Current Severity: Mild Maximum Severity: Severe Worsened by: Exertion; Not Worsened By Lying flat or Coughing Relieved by: Nothing Associated Symptoms cough; Negative for rhinorrhea, post nasal drip, ear pain, fever, sore throat, subjective, chills, sweats, clear sputum, white sputum, yellow sputum or green sputum Chest Pain: Positive for None Narrative Narrative: Patient is an elderly gentleman with history of COPD, GERD, hypercholesterolemia, DVT status post spine surgery 10 years ago and atrial fibrillation who is taking an oral anticoagulant, apixaban. Patient is a formersmoker. He quit in . He denies orthopnea; however, he does sleep with 3 pillows. He states he sleeps with 3 pillows because of mucus drainage. He doesendorse leg swelling. Uncertain when this started or if it got worse. According to son he has had shortness of breath for sometimes. It has recently gotten worse. Patient denies fever, chills night sweats. Patient denies headache, visual, ocular auditory symptoms. Patient denies chest discomfort. Patient denies PND. Patient denies abdominal pain, nausea, vomit or diarrhea. He denies melena or hematochezia. PE Risk Factors: Positive for Prior DVT or PE; Negative for Cancer, OCP + Smoking + > 35, Recent immobilization, Recent surgery or Recent travel Prior similar symptoms: Yes Recent Illness/Hospitalization: No PFSH PFS Medical History Atherosclerosis of coronary artery of [place] heart without angina pectoris Bronchitis Cough Crohn disease DDD (degenerative disc disease) Deep vein thrombosis of left lower extremity (2012) Essential (primary) hypertension GERD (gastroesophageal reflux disease) Glaucoma Heartburn Hyperlipidemia Multiple allergies New onset a-fib Non-ST elevation (NSTEMI) myocardial infarction (10/03/16) PND (post-nasal drip) Prostate enlargement PUD (peptic ulcer disease) Skin cancer Stomach ulcer Unstable angina Home Medications nitroglycerin 0.4 mg sublingual tablet (Nitrostat) 0.4 mg sublingual Q5-15M PRN Chest Pain 04/06/17 [History Last Taken Unknown] apixaban 5 mg tablet (Eliquis) 5 mg PO BID blood thinner 12/16/17 [History Last Taken 02/20/22 22:00] atorvastatin 20 mg tablet 20 mg PO QHS cholesterol 11/03/18 [History Last Taken 02/20/22 22:00] balsalazide 750 mg capsule 2,250 mg PO BID stomach 07/11/19 [History Last Taken 02/20/22 22:00] pantoprazole 40 mg tablet,delayed release 40 mg PO DAILY stomach 01/26/20 [History Last Taken 02/20/22 09:00] acetaminophen 325 mg tablet (Tylenol) 650 mg PO Q6H PRN Breakthrough Pain, Mild 05/08/21 [History Last Taken Unknown] dextromethorphan polistirex 30 mg/5 mL oral susp ext.release 12hr (Robitussin ER) 10 ml PO Q12H PRN Cough 05/08/21 [History Last Taken Unknown] guaifenesin 600 mg tablet, extended release 12 hr (Mucinex) 600 mg PO Q12H PRN Cough 05/08/21 [History Last Taken Unknown] metoprolol tartrate 25 mg tablet 25 mg PO BID #180 tabs 03/24/22 [Rx Last Taken Unknown] albuterol sulfate 90 mcg/actuation aerosol inhaler (Ventolin HFA) 2 puff inhalation Q4H PRN PRN Wheezing ##1 10/26/22 [Rx Last Taken Unknown] prednisone 20 mg tablet 60 mg (3 x 20 mg) PO DAILY #12 TABLETS 10/26/22 [Rx Last Taken Unknown] Allergy/AdvReac Type Severity Reaction Status Date / Time ragweed pollen AdvReac Intermediate Nasal Verified 10/26/22 08:56 congestion Family History Father Heart disease Mother CVA (cerebral vascular accident) Surgical History H/O colonoscopy History of coronary artery stent placement (10/05/16) History of dental surgery (04/15/21) Previous back surgery Social History household members: spouse Smoking Status: Former smoker second hand exposure: No alcohol intake: never substance use type: does not use ROS ROS ED Constitutional Constitutional ED: Denies chills, fever(s), sweats or weight loss Eyes Eyes: Denies blurry vision, change in vision or diplopia ENT ENT ED: Denies ear pain, rhinorrhea or sore throat Cardiovascular Cardiovascular: Denies chest pain, orthopnea, palpitations, paroxysmal nocturnaldyspnea or racing heartbeat Respiratory/Chest Respiratory/Chest: Reports cough, dyspnea and dyspnea on exertion; Denies orthopnea or paroxysmal nocturnal dyspnea Gastrointestinal Gastrointestinal: Denies abdominal pain, constipation, diarrhea, melena, nausea or vomiting Genitourinary Genitourinary ED: Denies dysuria, hematuria or urinary frequency Musculoskeletal Musculoskeletal: Denies arthralgias, back pain, myalgias or neck pain Integumentary Denies abscess, Abrasions or rash Neurologic Neurologic: Denies headache(s) or paresthesias Endocrine Endocrinology: Denies cold intolerance or heat intolerance Hematologic/Lymphatic Hematologic/Lymphatic: Reports easy bruising EXAM Physical Exam Const Vital Signs: 10/26/22 08:56 10/26/22 09:05 10/26/22 09:12 Temperature 96 F L Temperature Source Temporal Pulse Rate 66 68 Respiratory Rate 20 H 15 Respiratory Effort Short of Breath Labored Respiratory Pattern Blood Pressure 154/71 H Blood Pressure Mean 98 Pulse Ox 96 97 Oxygen Delivery Method Room Air Room Air 10/26/22 09:24 Temperature Temperature Source Pulse Rate 89 Respiratory Rate 20 H Respiratory Effort Respiratory Pattern Normal Blood Pressure Blood Pressure Mean Pulse Ox Oxygen Delivery Method Positive well nourished and well developed Constitutional Narrative: Patient is tachypneic at rest breathing much more rapidly than 20 times documented by triage. General Appearance ED: well developed and pallor; Negative for NAD HEENT Reports dry mucous membranes HEENT Narrative: Head is atraumatic normocephalic. Ears are normal. Nares are patent. Posterior pharynx without erythema or exudate. Mucosa is moist. Mouth ED: Yes dry mucous membranes Mouth: dry mucous membranes Eyes PERRL and EOMs intact bilaterally General Eye ED: Negative for pale conjunctiva or scleral icterus Neck no lymphadenopathy, supple, no meningeal signs and no JVD Resp No normal respiratory effort and No clear to auscultation bilaterally Auscultation: rales bilateral base and wheezes expiratory wheezes and throughout Cardio regular rate, regular rhythm, S1 normal heart sound, S2 normal heart sound and no murmurs Rate: Negative for bradycardia or tachycardic GI non-tender, non-distended and no masses Auscultation: normoactive bowel sounds Palpation: soft Back/Spine no CVA tenderness and normal to inspection Extremity Extremity Narrative: There is bilateral swelling. There is no asymmetry. There is no discoloration. There are minor changes consistent with venous stasis dermatitis. There is no pain the patient distribution deep venous system. There is no palpable cords orleg vein distention. General Extremety ED: Yes edema General Extremity: edema Neuro oriented x3, CN's II-XII intact bilaterally and no sensory deficits noted Sensorium / Orientation: alert Speech: speech normal Motor Exam: strength 5/5 throughout Psych mental status grossly normal Skin no wounds General Skin Exam: pallor; Negative for jaundice MDM MDM MDM Narrative Medical decision making narrative: With patient having bilateral wheezing on expiration and cough will obtain chestx-ray to assess for pneumonia. Since are symmetric breath sounds doubt pneumothorax. Since patient is on anticoagulant and DVT was related to surgery PEis unlikely. With pedal edema history of atrial fibrillation need to evaluate for congestive heart failure. Since this has been going on for months doubt cardiac ischemia. Patient was informed his EKG is unremarkable. He is present receiving breathingtreatments. 0938 Patient was reassessed at 1045. His breathing is no longer labored and he is not tachypneic. Patient has slight wheezing with forced expiration only. He was discharged with prescription for albuterol metered-dose inhaler and burst ofprednisone. Lab Data Attestation: I reviewed the patient's lab results. Lab results narrative: CBC is remarkable for anemia. Patient has chronic anemia. BNP is 80.4, which is normal. Troponin is normal with symptoms for days to weeks. Labs: Laboratory Results - last 24 hr 10/26/22 09:35 WBC 4.1 L RBC 3.86 L Hgb 11.4 L Hct 34.6 L MCV 89.6 MCH 29.5 MCHC 32.9 RDW Std Deviation 50.1 H RDW Coeff of Gaby 15.2 H Plt Count 214 MPV 8.1 Immature Gran % (Auto) 0.200 Neut % (Auto) 52.0 Lymph % (Auto) 23.3 [place] % (Auto) 17.4 H Eos % (Auto) 6.4 H Baso % (Auto) 0.7 Absolute Neuts (auto) 2.1 Absolute Lymphs (auto) 0.95 Nucleated RBC % 0 Sodium 140 Potassium 3.7 Chloride 108 H Carbon Dioxide 28.0 Anion Gap 4 L BUN 14 Creatinine 0.87 Est GFR (MDRD) Af Amer 107 Est GFR (MDRD) Non-Af 89 BUN/Creatinine Ratio 16.1 Glucose 132 H Calcium 8.3 L Troponin I High Sens 5 B-Natriuretic Peptide 80.4 Radiography Chest X-Ray - ED: 2 View and Read by ED Physician (Independently reviewed and interpreted by me at 1033 as negative for any acute findings. There is chronic changes with hyperaeration. Cardiac silhouette size unremarkable. There is no effusion, infiltrate or evidence of congestive heart failure. Perihilar region is unremarkable. Osseous trucks ) EKG Initial EKG: Attestation: I personally reviewed and interpreted this EKG as follows: Interpretation: Sinus Rhythm (Rate is 65 and EKG is normal. [place] interval is 168 ms. Cures duration 90 ms for QT duration 406 ms. Olar is normal.) Differential Diagnosis Chest pain/SOB: pulmonary embolism Reason(s) PE less likely: Positive for not tachycardic, not hypoxic and patient taking oral anticoagulants, pneumothorax Reason(s) pneumothorax less likely: Positive for bilateral breath sounds and CSRwithhout PTX, pneumonia Reason(s) pneumonia less likely: Positive for no infiltrate on CXR, no elevation in WBC count, no noted fever and symptoms not consistent with acute infection, aortic dissection Reason(s) Aortic dissection less likely:: Positive for normal vascular exam, no history of HTN, normal neurological exam, no significant risk factors for dissection, no widened mediastinum on CXR, pain not sudden onset, no ripping/tearing pain, no pain to back and blood pressure appropriate in ED and CHF Reason(s) CHF less likely: Positive for no orthopnea, no evidence of fluid overload on CXR and BtNP not significantly elevated over normal/baseline Discharge Plan Triage Chief Complaint: Shortness of Breath ED Provider: Vito Fernandes Dx/Rx/DC Orders Clinical Impression: Dyspnea, Lymphedema of both lower extremities, Acute bronchospasm Prescriptions: New prednisone 20 mg tablet 60 mg PO DAILY Qty: 12 0RF albuterol sulfate [Ventolin HFA] 90 mcg/actuation HFA aerosol inhaler 2 puff inhalation Q4H PRN PRN (Reason: Wheezing) Qty: 1 0RF No Action nitroglycerin [Nitrostat] 0.4 mg tablet, sublingual 0.4 mg SUBLINGUAL Q5-15M PRN (Reason: Chest Pain) Eliquis 5 mg tablet 5 mg PO BID atorvastatin 20 mg tablet 20 mg PO QHS pantoprazole 40 mg tablet,delayed release (DR/EC) 40 mg PO DAILY dextromethorphan polistirex [Robitussin ER] 30 mg/5 mL suspension,extended rel12 hr 10 ml PO Q12H PRN (Reason: Cough) acetaminophen [Tylenol] 325 mg tablet 650 mg PO Q6H PRN (Reason: Breakthrough Pain, Mild) guaifenesin [Mucinex] 600 mg tablet extended release 12hr 600 mg PO Q12H PRN (Reason: Cough) balsalazide 750 mg capsule 2,250 mg PO BID Rx Instructions: 750 mg PO 6 capsules per day; metoprolol tartrate 25 mg tablet 25 mg PO BID Qty: 180 3RF Primary Care Provider: Marcelo Mccullough Chi Referrals: Marcelo Mccullough Chi, MD [Primary Care Provider] - 3-5 Days Disposition Disposition: Home, Self Care What to do if you have Problems For any increased pain, shortness of breath, bleeding, nausea or vomiting, chestpain, or any unexpected problems, contact your Primary Care Provider. Call [facility] ([phone]) or report to the closest Emergency Room. Call 911 if necessary. 10/26/22 1048 <Electronically signed by Vito Fernandes MD> Cosigner Signature (if applicable): CC: Dr. Marcelo Mccullough MD ~ Signed [facility] Work Phone: Discharge summary Author Amado Anderson [facility] February 03, 2023 10:01am Note Date/Time February 03, 2023 8:32am [facility] Medical Records Department [address] [place] [address] [place] [address] Emergency Department Summary 02/03/23 MR#: [id number] Acct: [id number] Name: IRWIN CORDERO Rep #:[id number] : 1940 82 From: Amado Anderson MD PCP: Dr. Marcelo Mccullough MD Status:REG E R Location: ED HPI History of Present Illness Chief Complaint: Dizziness Narrative Narrative: 82-year-old male presents with his daughter because of lightheadedness and dizziness states been going on for the last few days. He has past medical history of atrial fibrillation, and DVTs with PEs for which he is on Eliquis andhas been. They relate history that he required cardioversion twice for his atrial fibrillation. He was recently admitted to the hospital a few weeks ago for atrial fibrillation. He presents because of the more lightheadedness and vertiginous type symptoms that he has had for the past few days. Can be worse with standing. He denies any chest pain or shortness of breath. No palpitations. He does not have any dysuria or hematuria. He has an occasional cough withphlegm production, but does not know the color because he tends to swallow it. He is here for his generalized weakness and lightheadedness. Additionally, his daughter states that he has fallen a few times, the last being on January 08 where he may have hit his head and he told her he does not feel right since then. The last time he was in the emergency department he neglected to tell thephysician that he had fallen and hit his head. [facility] Medical History Anemia Atherosclerosis of coronary artery of [place] heart without angina pectoris Bronchitis Cough Crohn disease DDD (degenerative disc disease) Deep vein thrombosis of left lower extremity (2012) Essential (primary) hypertension GERD (gastroesophageal reflux disease) Glaucoma Heartburn Hyperlipidemia Multiple allergies New onset a-fib Non-ST elevation (NSTEMI) myocardial infarction (10/03/16) PND (post-nasal drip) Prostate enlargement PUD (peptic ulcer disease) Skin cancer Stomach ulcer Unstable angina Home Medications nitroglycerin 0.4 mg sublingual tablet (Nitrostat) 0.4 mg sublingual Q5-15M PRN Chest Pain 04/06/17 [History Last Taken Unknown] apixaban 5 mg tablet (Eliquis) 5 mg PO BID blood thinner 12/16/17 [History Last Taken 02/20/22 22:00] atorvastatin 20 mg tablet 20 mg PO QHS cholesterol 11/03/18 [History Last Taken 02/20/22 22:00] balsalazide 750 mg capsule 2,250 mg PO BID stomach 07/11/19 [History Last Taken 02/20/22 22:00] pantoprazole 40 mg tablet,delayed release 40 mg PO DAILY stomach 01/26/20 [History Last Taken 02/20/22 09:00] acetaminophen 325 mg tablet (Tylenol) 650 mg PO Q6H PRN Breakthrough Pain, Mild 05/08/21 [History Last Taken Unknown] dextromethorphan polistirex 30 mg/5 mL oral susp ext.release 12hr (Robitussin ER) 10 ml PO Q12H PRN Cough 05/08/21 [History Last Taken Unknown] guaifenesin 600 mg tablet, extended release 12 hr (Mucinex) 600 mg PO Q12H PRN Cough 05/08/21 [History Last Taken Unknown] albuterol sulfate 90 mcg/actuation aerosol inhaler (Ventolin HFA) 2 puff inhalation Q4H PRN PRN Wheezing ##1 10/26/22 [Rx Last Taken Unknown] amiodarone 200 mg tablet 200 mg PO DAILY #90 tabs 11/12/22 [Rx Last Taken Unknown] levocetirizine 5 mg tablet 5 mg PO QHS 01/18/23 [History Last Taken Unknown] escitalopram oxalate 5 mg tablet 5 mg PO DAILY 02/03/23 [History Last Taken Unknown] Allergy/AdvReac Type Severity Reaction Status Date / Time ragweed pollen AdvReac Intermediate Nasal Verified 01/18/23 04:04 congestion Family History Father Heart disease Mother CVA (cerebral vascular accident) Surgical History H/O colonoscopy History of coronary artery stent placement (10/05/16) History of dental surgery (04/15/21) Previous back surgery Social History household members: spouse Smoking Status: Former smoker second hand exposure: No alcohol intake: never substance use type: does not use ROS ROS ED ROS Narrative Constitutional: No fever, no chills. HEENT: No sore throat. No neck pain. No loss of vision. No rhinorrhea. Cardiovascular: No chest pain. No palpitations. No pedal edema. Respiratory: Occasionally productive cough, no shortness of breath. Abdominal: No abdominal pain. No nausea. No vomiting. Genitourinary: No dysuria. No hematuria. Musculoskeletal: No myalgias. No arthralgias. Neurologic: Positive headaches. Positive dizziness. Positive lightheadedness. Skin: No rash. No change in color. Psychiatric: No depression. No anxiety. EXAM Physical Exam Narrative Exam Narrative: Afebrile. Vital signs noted. HEENT: Normocephalic. Atraumatic. PERRL, EOMI. Neck soft and supple. No pointtenderness or step off. Cardiovascular: Regular rate and rhythm. No murmurs, rubs, or gallops appreciated. Respiratory: No tachypnea. Lungs clear to auscultation bilaterally. Gastrointestinal: Abdomen soft, nontender, with normoactive bowel sounds. No rebound or guarding. Neurological: Awake. Alert. Oriented x3, nonfocal, nonlateralizing. Skin: No rash. Normal color. No pallor. Musculoskeletal: No pedal edema. Full range of motion extremities. Const Vital Signs: 02/03/23 07:53 02/03/23 08:19 02/03/23 08:19 Temperature 97.2 F L Temperature Source Temporal Pulse Rate 67 55 L Respiratory Rate 18 16 Respiratory Effort Normal Non-Labored Respiratory Pattern Normal Blood Pressure 181/72 H 112/62 Blood Pressure Mean 108 78 Pulse Ox 97 Oxygen Delivery Method Room Air MDM MDM MDM Narrative Medical decision making narrative: Comprehensive work-up was pursued. For his lightheadedness and dizziness, in the differential diagnosis is continued concussion from his fall a few weeks ago, intravascular volume depletion, and dehydration, along with orthostatic hypotension. Regarding his other complaints of generalized weakness and shakiness, he may have hyponatremia. Lower on the differential diagnosis is pneumonia because the history and physical does not support this, versus urinarytract infection which is also not supported. EKG was obtained and interpreted by myself independently as normal sinus rhythm at 65 bpm without ectopy or acuteST changes. No STEMI. I do not feel that his history of atrial fibrillation nkechi cause of his generalized weakness given his normal EKG. I reviewed his laboratory work and he has a normal white count of 4.9, hemoglobin stable 11.5, platelet count normal at 319. CMP shows glucose appropriately elevated at 102 with a anion gap low at 4. Sodium is normal at 139 as well as potassium 3.8 and chloride 106. LFTs show a low ALT of 13 but otherwise grossly unremarkable. His high-sensitivity troponin is 7. His weakness has been ongoing for few days. Chest x-ray in 1 view interpreted by myself independently shows no evidence of pneumonia or pneumothorax. I do not feel antibiotics are indicated. I reviewed the radiology report which confirms my independent interpretation. Additionally, I reviewed the radiology report for the CT of the brain which shows chronic involutional Javon changes but no evidence of an acute fracture or hemorrhage. Upon repeat examination, he feels the same. In discussion with the patient and his family, he prefers to be discharged, stating he does not need help at home or admission for placement. Additionally, his daughter states that he started Lexapro and has been on it for2 weeks. She feels this may be medication side effect as he is also experiencing tinnitus. They were told to call the physician/provider who started this as he may need to taper off of it. Urinalysis obtained and reviewed, and he has 5-10 WBCs with 0 bacteria and 0 RBCs. I do not feel antibiotics are currently indicated, but his urine will be sent for culture. At this point in time, I feel he can be discharged safely home with follow-up. I had discussed observation/admission with the patient andhis family, but they prefer that he go home as they do not feel he requires rehab or placement in a nursing facility. Return instructions to the emergency department were reviewed. Disposition is discharged home in stable condition. History & Record Review Discussion w/independent historian: Patient Additional record(s) reviewed:: Prior ED visit and Prior labs Lab Data Attestation: I reviewed the patient's lab results. Labs: Laboratory Results - last 24 hr 02/03/23 02/03/23 08:15 09:30 WBC 4.9 RBC 4.01 L Hgb 11.5 L Hct 37.0 L MCV 92.3 MCH 28.7 MCHC 31.1 L RDW Std Deviation 58.2 H RDW Coeff of Gaby 16.9 H Plt Count 319 MPV 8.7 Sodium 139 Potassium 3.8 Chloride 106 Carbon Dioxide 29.0 Anion Gap 4 L BUN 12 Creatinine 0.96 Est GFR (MDRD) Af Amer 96 Est GFR (MDRD) Non-Af 79 BUN/Creatinine Ratio 12.5 Glucose 102 Calcium 8.1 L Total Bilirubin 1.30 H AST 15 ALT 13 L Alkaline Phosphatase 60 Troponin I High Sens 7 Total Protein 7.0 Albumin 3.3 Globulin 3.7 Albumin/Globulin Ratio 0.9 Urine Color Yellow Urine Clarity Clear Urine pH 8.0 Ur Specific [place] 1.015 Urine Protein Negative Urine Glucose (UA) Normal Urine Ketones Negative Urine Occult Blood Negative Urine Nitrite Negative Urine Bilirubin Negative Urine Urobilinogen Normal Ur Leukocyte Esterase 500 H Urine RBC 0-5 SEEN Urine WBC 5-10 SEEN Ur Squamous Epith Cells 0 SEEN Urine Bacteria 0 SEEN Urine Mucus 0 SEEN Radiography Diagnostic Testing: Clinical Impression(s) from Imaging Studies Brain CT 02/03/23 08:25 IMPRESSION: Chronic involutional changes of the brain. Electronically Signed: Jayson Morales MD at 9:06 EST , Chest X-Ray 02/03/23 08:55 IMPRESSION: Hyperinflation. No acute abnormality is seen. Electronically Signed: Jayson Morales MD at 9:07 EST , Discharge Plan Triage Chief Complaint: Dizziness Other Complaint: Hypertension ED Provider: Amado Anderson Dx/Rx/DC Orders Clinical Impression: Medication side effects, Lightheadedness, Generalized weakness Instructions: ED Dizziness, Uncertain Cause, ED Near-Fainting, Uncertain Cause,ED Weakness (Uncertain Cause) Prescriptions: No Action nitroglycerin [Nitrostat] 0.4 mg tablet, sublingual 0.4 mg SUBLINGUAL Q5-15M PRN (Reason: Chest Pain) Patient Comments: pt. states he has never had to take it Eliquis 5 mg tablet 5 mg PO BID atorvastatin 20 mg tablet 20 mg PO QHS pantoprazole 40 mg tablet,delayed release (DR/EC) 40 mg PO DAILY dextromethorphan polistirex [Robitussin ER] 30 mg/5 mL suspension,extended rel12 hr 10 ml PO Q12H PRN (Reason: Cough) acetaminophen [Tylenol] 325 mg tablet 650 mg PO Q6H PRN (Reason: Breakthrough Pain, Mild) guaifenesin [Mucinex] 600 mg tablet extended release 12hr 600 mg PO Q12H PRN (Reason: Cough) balsalazide 750 mg capsule 2,250 mg PO BID Rx Instructions: 750 mg PO 6 capsules per day; albuterol sulfate [Ventolin HFA] 90 mcg/actuation HFA aerosol inhaler 2 puff inhalation Q4H PRN PRN (Reason: Wheezing) Qty: 1 0RF Hold Instructions: No transportation amiodarone 200 mg Tablet 200 mg PO DAILY Qty: 90 0RF escitalopram oxalate 5 mg tablet 5 mg PO DAILY Patient Comments: TAKE 1 TABLET BY MOUTH EVERY DAY levocetirizine 5 mg tablet 5 mg PO QHS Patient Comments: TAKE 1 TABLET BY MOUTH EVERYDAY AT BEDTIME Primary Care Provider: Marcelo Mccullough Chi Referrals: Marcelo Mccullough Chi, MD [Primary Care Provider] - As soon as possible Activity Restrictions/Additional Instructions: Follow-up with the provider who wrote the Lexapro, and tell them the side effects that you are having. Return with new or worsening symptoms. Disposition Disposition: Home, Self Care What to do if you have Problems For any increased pain, shortness of breath, bleeding, nausea or vomiting, chestpain, or any unexpected problems, contact your Primary Care Provider. Call [facility] ([phone]) or report to the closest Emergency Room. Call 911 if necessary. 02/03/23 1001 <Electronically signed by Amado Anderson MD> Cosigner Signature (if applicable): CC: Dr. Marcelo Mccullough MD ~ Signed [facility] Work Phone: Evaluation note* Diagnosis Foreign body in esophagus, initial encounter- [facility] Diagnosis Onset Date Resolution Status Atrial fibrillation with rapid ventricular response acute Chest pain acute [facility] Work Phone: Evaluation note* Diagnosis Onset Date Resolution Status Atrial fibrillation with rapid ventricular response acute Chest pain acute Chest pressure acute [facility] Work Phone: Evaluation note* Diagnosis Onset Date Resolution Status Atrial fibrillation with rapid ventricular response resolved Chest pain resolved Chest pressure resolved New onset a-fib acute Hyperlipidemia chronic [facility] Work Phone: Evaluation note* Diagnosis Onset Date Resolution Status New onset a-fib acute Hyperlipidemia chronic New onset a-fib acute Hyperlipidemia [facility] Work Phone: Evaluation note* Diagnosis Onset Date Resolution Status New onset a-fib acute Hyperlipidemia chronic [facility] Work Phone: Evaluation noteNo assessment information available [facility] Work Phone: evaluation note* Diagnosis Onset Date Resolution Status Atrial fibrillation with rapid ventricular response acute Current use of intermission coordinator anticoagulation acute Hypokalemia acute [facility] Work Phone: Evaluation note* Diagnosis Onset Date Resolution Status Atrial fibrillation with rapid ventricular response acute Chest pain acute Coronary artery disease acut e Current use of intermission coordinator anticoagulation acute Dyslipidemia acute History of DVT (deep vein thrombosis) acute Hyperglycemia acute Hypokalemia acute Paroxysmal atrial fibrillation acute Hypertension chronic [facility] Work Phone: Evaluation note* Diagnosis Onset Date Resolution Status Coronary artery disease acut e Current use of intermission coordinator anticoagulation acute Dyslipidemia acute History of DVT (deep vein thrombosis) acute Paroxysmal atrial fibrillation acute Hypertension chronic Atrial fibrillation with rapid ventricular response resolved Chest pain resolved Hyperglycemia resolved Hypokalemia resolved [facility] Work Phone: Evaluation note* Diagnosis Onset Date Resolution Status Paroxysmal atrial fibrillation acute Hyperlipidemia chronic [facility] Work Phone: Evaluation note* Diagnosis Persistent atrial fibrillation (HCC)- Primary Atrial fibrillation 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 use of antiarrhythmic drug 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 use of amiodarone At risk for stroke Other specified personal history presenting hazards to health Anticoagulant long-term use Long-term (current) use of anticoagulants At risk for bleeding associated with anticoagulants History of GI bleed Personal history of other diseases of digestive system Atherosclerosis of [place] coronary artery of [place] heart without angina pectoris Status post primary angioplasty with coronary stent Postsurgical percutaneous transluminal coronary angioplasty status [facility] N[facility] No data available for this section [facility] Discharge instructions* Attachments The following attachments cannot be sent through Care Everywhere. * Foreign Body in Throat or Esophagus (Thai) [facility] Additional Instructions Follow-up with the provider who wrote the Lexapro, and tell them the side effects that you are having. Return with new or worsening symptoms.[facility] Work Phone: Hospital Discharge instructions Additional Instructions Antibiotics as directed. Follow-up with your primary care provider. Return with increased shortness of breath, new or worsening symptoms.[facility] Work Phone: Reason for referral (narrative)No reason for referral information [facility] Work Phone: Chief Complaint and Reason for Visit Chief Complaint VIRAL SYMPTOMS CHEST PRESSURE Reason for Visit Atrial fibrillation with rapid ventricular response Chest pain Chief Complaint VIRAL SYMPTOMS CHEST PRESSURE CHEST PRESSURE CHEST PRESSURE Reason for Visit Atrial fibrillation with rapid ventricular response Chest pain Chest pressure Chief Complaint VIRAL SYMPTOMS CHEST PRESSURE CHEST PRESSURE CHEST PRESSURE PER MMM Reason for Visit Atrial fibrillation with rapid ventricular response Chest pain Chest pressure New onset a-fib Hyperlipidemia Chief Complaint VIRAL SYMPTOMS CHEST PRESSURE CHEST PRESSURE CHEST PRESSURE PER MMM WEIGHT LOSS, DYSPHAGIA Reason for Visit Atrial fibrillation with rapid ventricular response Chest pain Chest pressure New onset a-fib Hyperlipidemia Chief Complaint PER MMM WEIGHT LOSS, DYSPHAGIA 9 M FU CHRONIC COUGH CHRONIC COUGH Reason for Visit New onset a-fib Hyperlipidemia New onset a-fib Hyperlipidemia Chief Complaint WEIGHT LOSS, DYSPHAG IA 9 M FU CHRONIC COUGH CHRONIC COUGH Reason for Visit New onset a-fib Hyperlipidemia Chief Complaint CHRONIC COUGH CHRONIC COUGH SHORTNESS OF BREATH Chief Complaint SHORTNESS OF BREATH HEAD INJURY Chief Complaint SHORTNESS OF BREATH HEAD INJURY AFIB WITH RVR Reason for Visit Atrial fibrillation with rapid ventricular response Current use of nursing home anticoagulation Hypokalemia Chief Complaint SHORTNESS OF BREATH HEAD INJURY AFIB WITH RVR AFIB WITH RVR AFIB WITH RVR Reason for Visit Atrial fibrillation with rapid ventricular response Chest pain Coronary artery disease Current use of nursing home anticoagulation Dyslipidemia History of DVT (deep vein thrombosis) Hyperglycemia Hypokalemia Paroxysmal atrial fibrillation Hypertension Chief Complaint SHORTNESS OF BREATH HEAD INJURY AFIB WITH RVR AFIB WITH RVR AFIB WITH RVR AFIB, CP Reason for Visit Coronary artery dise ase Current use of intermission coordinator anticoagulation Dyslipidemia History of DVT (deep vein thrombosis) Paroxysmal atrial fibrillation Hypertension Atrial fibrillation with rapid ventricular response Chest pain Hyperglycemia Hypokalemia Chief Complaint SHORTNESS OF BREATH HEAD INJURY AFIB WITH RVR AFIB WITH RVR AFIB WITH RVR AFIB, CP dizziness Reason for Visit Coronary artery dise ase Current use of nursing home anticoagulation Dyslipidemia History of DVT (deep vein thrombosis) Paroxysmal atrial fibrillation Hypertension Atrial fibrillation with rapid ventricular response Chest pain Hyperglycemia Hypokalemia Chief Complaint AFIB, CP dizziness 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 Chief Complaint AFIB, CP dizziness 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 Dizziness (cardiology) Chief Complaint dizziness 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 Dizziness (cardiology) 9 M FU SCREENING Reason for Visit Paroxysmal atrial fi brillation Hyperlipidemia Chief Complaint Admit Date S/P WC 02/28March 17, 2024 10:20am 2 M FU May 15, 2024 9:45am swelling mass and lump June 26, 2024 1 1:59am Reason for Visit Admit Date Atherosclerosis of coronary artery of [place] heart without angina pectoris March 17, 2024 10:20am Current use of nursing home anticoagulation March 17, 2024 10:20am Essential (primary) hypertension Decembe r 2023 10:20am History of DVT (deep vein thrombosis) De cember 2023 10:20am Hyperlipidemia March 17, 2024 10:20am Paroxysmal atrial fibrillation March 17, 2024 10:20am Fatigue May 15, 2024 9:45am Atherosclerosis of coronary artery of [place] heart without angina pectoris May 15, 2024 9:45am Current use of nursing home anticoagulation May 15, 2024 9:45am Essential (primary) hypertension Februar y 2024 9:45am History of DVT (deep vein thrombosis) Fe bruary 2024 9:45am Hyperlipidemia May 15, 2024 9:45am Paroxysmal atrial fibrillation May 15, 2024 9:45am Chief Complaint Admit Date S/P [facility] 02/28March 17, 2024 10:20am 2 M FU May 15, 2024 9:45am swelling mass and lump June 26, 2024 1 1:59am general illness July 06, 2024 2:0 2pm Chief Complaint Admit Date 2 M FU May 15, 2024 9:45am swelling mass and lump June 26, 2024 1 1:59am general illness July 06, 2024 2:0 2pm Leg Swelling, mass & lump bilateral Apri l 2024 9:02am SORE THROAT, CONGESTION July 20, 2024 4: 19pm 1 Y FU August 03, 2024 8:25a m Reason for Visit Admit Date Fatigue May 15, 2024 9:45am Atherosclerosis of coronary artery of [place] heart without angina pectoris May 15, 2024 9:45am Current use of nursing home anticoagulation May 15, 2024 9:45am Essential (primary) hypertension y 2024 9:45am History of DVT (deep vein thrombosis) Fe bruary 2024 9:45am Hyperlipidemia May 15, 2024 9:45am Paroxysmal atrial fibrillation May 15, 2024 9:45am Chronic deep vein thrombosis (DVT) of both lower extremities July 19, 2024 9:02am Leg edema July 19, 2024 9:0 2am Lymphedema July 19, 2024 9:0 2am Venous stasis of both lower extremities July 19, 2024 9:02am History of DVT (deep vein thrombosis) Ap [facility] 2024 9:02am Acute bronchitis July 20, 2024 4:19pm Reason for Visit Admit Date Fatigue May 15, 2024 9:45am Atherosclerosis of coronary artery of [place] heart without angina pectoris May 15, 2024 9:45am Current use of nursing home anticoagulation May 15, 2024 9:45am Essential (primary) hypertension r 2024 9:45am History of DVT (deep vein thrombosis) Fe bruary 2024 9:45am Hyperlipidemia May 15, 2024 9:45am Paroxysmal atrial fibrillation May 15, 2024 9:45am Chronic deep vein thrombosis (DVT) of both lower extremities July 19, 2024 9:02am Leg edema July 19, 2024 9:0 2am Lymphedema July 19, 2024 9:0 2am Venous stasis of both lower extremities July 19, 2024 9:02am History of DVT (deep vein thrombosis) Ap [facility] 2024 9:02am Acute bronchitis July 20, 2024 4:19pm Atherosclerosis of coronary artery of [place] heart without angina pectoris August 03, 2024 8:25am Essential (primary) hypertension July 8:25am History of DVT (deep vein thrombosis) Ma y 2024 8:25am Hyperlipidemia August 03, 2024 8:25a m Paroxysmal atrial fibrillation August 03, 2024 8:25am Chief Complaint Admit Date 2 M FU May 15, 2024 9:45am swelling mass and lump June 26, 2024 1 1:59am general illness July 06, 2024 2:0 2pm Leg Swelling, mass & lump bilateral Apri l 2024 9:02am SORE THROAT, CONGESTION July 20, 2024 4: 19pm 1 Y FU August 03, 2024 8:25a m Cough August 31, 2024 3:36 pm Chief Complaint Admit Date swelling mass and lump June 26, 2024 1 1:59am general illness July 06, 2024 2:0 2pm Leg Swelling, mass & lump bilateral Apri l 2024 9:02am SORE THROAT, CONGESTION July 20, 2024 4: 19pm 1 Y FU August 03, 2024 8:25a m Cough August 31, 2024 3:36 pm Reason for Visit Admit Date Chronic deep vein thrombosis (DVT) of [place]olin th lower extremities July 19, 2024 9:02am Leg edema July 19, 2024 9:0 2am Lymphedema July 19, 2024 9:0 2am Venous stasis of both lower extremities July 19, 2024 9:02am History of DVT (deep vein thrombosis) Ap ril 2024 9:02am Acute bronchitis July 20, 2024 4:19pm Atherosclerosis of coronary artery of [place] heart without angina pectoris August 03, 2024 8:25am Essential (primary) hypertension July 8:25am History of DVT (deep vein thrombosis) Ma y 2024 8:25am Hyperlipidemia August 03, 2024 8:25a m Paroxysmal atrial fibrillation August 03, 2024 8:25am Chief Complaint Admit Date swelling mass and lump June 26, 2024 1 1:59am general illness July 06, 2024 2:0 2pm Leg Swelling, mass & lump bilateral Apri l 2024 9:02am SORE THROAT, CONGESTION July 20, 2024 4: 19pm 1 Y FU August 03, 2024 8:25a m Cough August 31, 2024 3:36 pm 3 M FU October 18, 2024 9:56 am Chief Complaint Admit Date general illness July 06, 2024 2:0 2pm Leg Swelling, mass & lump bilateral Apri l 2024 9:02am SORE THROAT, CONGESTION July 20, 2024 4: 19pm 1 Y FU August 03, 2024 8:25a m Cough August 31, 2024 3:36 pm 3 M FU October 18, 2024 9:56 am Reason for Visit Admit Date Chronic deep vein thrombosis (DVT) of antolin th lower extremities July 19, 2024 9:02am Leg edema July 19, 2024 9:0 2am Lymphedema July 19, 2024 9:0 2am Venous stasis of both lower extremities July 19, 2024 9:02am History of DVT (deep vein thrombosis) Ap ril 2024 9:02am Acute bronchitis July 20, 2024 4:19pm Atherosclerosis of coronary artery of [place] heart without angina pectoris August 03, 2024 8:25am Essential (primary) hypertension July 8:25am History of DVT (deep vein thrombosis) Ma y 2024 8:25am Hyperlipidemia August 03, 2024 8:25a m Paroxysmal atrial fibrillation August 03, 2024 8:25am Chronic deep vein thrombosis (DVT) of [place] th lower extremities October 18, 2024 9:56am Leg edema October 18, 2024 9:56 am Lymphedema October 18, 2024 9:56 am Venous stasis of both lower extremities October 18, 2024 9:56am History of DVT (deep vein thrombosis) Ju ly 2024 9:56am Family History No Family History Records Found Relationship Condition Age at Onset Recorded Date/T cee father Cardiac disease Unknown mother Cerebrovascular accident (CVA) Unknown Advance Directives No Advanced Directives Records Found Advance Directive Response Recorded Date/ Time Living Will No February 21 4:56am Power of Knifer Up No February 21, 2022 4:56am Advance Directive Response Recorded Date/ Time Living Will No February 21 9:26am Power of [place] Up No February 21, 2022 9:26am Advance Directive Response Recorded Date/ Time Living Will No February 21 10:26am Power of [place] Up No February 21, 2022 10:26am Advance Directive Response Recorded Date/ Time Name of Medical Power of Knifer Up ? October 26, 2022 9:07am Living Will Yes October 26, 2022 9:07am Power of [place] Up Yes October 26 9:07am Advance Directive Response Recorded Date/ Time Name of Medical Power of [place] Up ? October 26, 2022 9:07am Living Will Yes November 06 10:23pm Power of [place] Up No November 06 023 10:23pm Advance Directive Response Recorded Date/ Time Name of Medical Power of [place] Up ? October 26, 2022 9:07am Name of Medical Power of Knifer Up SON November 11, 2022 3:32am Living Will Yes November 11 3:32am Power of [place] Up Yes November 11 023 3:32am Advance Directive Response Recorded Date/ Time Name of Medical Power of [place] Up ? October 26, 2022 9:07am Name of Medical Power of Knifer Up Wei Cordero November 11, 2022 6:16am Living Will Yes November 11 6:16am Power of Knifer Up Yes November 11 023 6:16am Advance Directive Response Recorded Date/ Time Name of Medical Power of Knifer Up ? October 26, 2022 9:07am Name of Medical Power of Knifer Up Wei Cordero November 11, 2022 6:16am Name of Medical Power of Knifer Up ANTHONY KANG January 18, 2023 3:38am Living Will Yes January 18 3:38am Power of Knifer Up Yes January 18, 2023 3:38am Advance Directive Response Recorded Date/ Time Name of Medical Power of Knifer Up ? October 26, 2022 8:07am Name of Medical Power of [place]ifer Up Wei Cordero November 11, 2022 5:16am Name of Medical Power of Knifer Up recalled February 03, 2023 10:19am Living Will Yes February 03, 023 10:19am Power of Knifer Up Yes February 03, 2023 10:19am Name of Medical Power of Knifer Up ANTHONY KANG January 18, 2023 2:38am Advance Directive Response Recorded Date/ Time Name of Medical Power of Knifer Up recalled February 03, 2023 10:19am Name of Medical Power of Knifer Up March 16, 2023 7:59am Living Will Yes March 16 023 7:59am Power of Knifer Up Yes March 16, 2023 7:59am Name of Medical Power of Knifer Up ANTHONY KANG January 18, 2023 2:38am Advance Directive Response Recorded Date/ Time Name of Medical Power of [place] Up recalled February 03, 2023 10:19am Name of Medical Power of [place] Up March 16, 2023 7:59am Living Will Yes March 16 023 7:59am Power of Knifer Up Yes March 16, 2023 7:59am Advance Directive Response Recorded Date/ Time Living Will Yes July 06, 2024 2:57pm Do you have a Healthcare Power of Knifer Up? Yes July 06, 2024 2:57pm Name of Medical Power of Knifer Up [facility] July 06, 2024 2:57pm Advance Directive Response Recorded Date/ Time Living Will Yes March 16 8:59am Do you have a Healthcare Power of Knifer Up? Yes March 16, 2023 8:59am Living Will Yes July 06, 2024 2:57pm Do you have a Healthcare Power of Knifer Up? Yes July 06, 2024 2:57pm Name of Medical Power of Knifer Up [facility] July 06, 2024 2:57pm Summary Purpose Additional Source Comments Reason for Visit (unrecogniz ed section and content) Reason Comments Foreign Body Swallowed Pt arrives via EM S with c/o choking on steak at a restaraunt where the Heimlich was performed. Food particle was expelled however, pt states he still feels like something is slightly stuck. No dyspnea noted Reason Comments New Patient Ref [facility]G for PAF Goals (unrecognized section and content) Goals may be documented in a n alternate section No data available for this sectionGoals may be documented in an alternate sectionGoals may be documented in an alternate sectionGoals may be documented in an alternate sectionGoals may be documented in an alternate sectionGoals may be documented in an alternate sectionGoals may be documented in an alternate sectionGoals may be documented in an alternate sectionGoals may be documented in an alternate section No data available for this sectionGoals may be documented in an alternate sectionGoals may be documented in an alternate sectionGoals may be documented in an alternate sectionGoals may be documented in an alternate sectionGoals may be documented in an alternate sectionGoals may be documented in an alternate sectionGoals may be documented in an alternate sectionGoals may be documented in an alternate sectionGoals may be documented in an alternate section Care Teams (unrecognized sec tion and content) Team Status: Active Member Role Status Dates Dr. Marcelo Mccullough MD Family Provider Active Dr. Marcelo Mccullough MD Primary Care Provider Active Team Status: Active Member Role Status Dates Dr. Marcelo Mccullough MD Primary Care Provider Active Dr. Nicole Ventura DO Emergency Provider Active Dr. Simon Lund MD Admit Provider, A ttending Provider, Other Provider Active Team Status: Active Member Role Status Dates Dr. Marcelo Mccullough MD Primary Care Provider Active Dr. Leah Marie MD Attending Provider Active Team Status: Active Member Role Status Dates Dr. Marcelo Mccullough MD Primary Care Provider Active Dr. Nicole Ventura DO Emergency Provider Active Dr. Simon Lund MD Admit Provider, Other Provider Active Dr. Eloy Roberts DO Attending Provider, Other Provid er Active Team Status: Inactive Member Role Status Dates Dr. Marcelo Mccullough MD Primary Care Provider, Referring Provider Active Cris Pruitt PA, PA Attending Provider Active Team Status: Inactive Member Role Status Dates Dr. Marcelo Mccullough MD Primary Care Provider, Attending Provider Active Team Status: Inactive Member Role Status Dates Dr. Marcelo Mccullough MD Primary Care Provider Active Dr. Nicole Ventura DO Emergency Provider Active Dr. Simon Lund MD Admit Provider, Other Provider Active Dr. Eloy Roberts DO Attending Provider Active Team Status: Inactive Member Role Status Dates Dr. Marcelo Mccullough MD Primary Care Provider Active Dr. Erick Beltran MD Attending Provider Active Team Status: Active Member Role Status Dates Dr. Marcelo Mccullough MD Primary Care Provider, Other Pro vider Active Dr. José Miguel Perez MD Attending Provider Active Team Status: Active Member Role Status Dates Dr. Marcelo Mccullough MD Primary Care Provider, Attending Provider Active Team Status: Active Member Role Status Dates Dr. Marcelo Mccullough MD Primary Care Provi esdras, Referring Provider, Other Provider Active Dr. José Miguel Perez MD Attending Provider Active Team Status: Inactive Member Role Status Dates Dr. Marcelo Mccullough MD Primary Care Provi esdras, Attending Provider, Referring Provider Active Team Status: Inactive Member Role Status Dates Dr. Marcelo Mccullough MD Primary Care Provider Active Dr. Vito Fernandes MD Emergency Provider Active Team Status: Inactive Member Role Status Dates Dr. Marcelo Mcclulough MD Primary Care Provider Active Dr. Vito Fernandes MD Attending Provider, Emergency Provi esdras Active Team Status: Inactive Member Role Status Dates Dr. Marcelo Mccullough MD Primary Care Provider Active Dr. Eloy Lane DO Emergency Provider Active Team Status: Active Member Role Status Dates Dr. Marcelo Mccullough MD Primary Care Provider Active Dr. Khari Lindsay DO Emergency Provider Active Dr. Mariana Rich DO Admit Provider, Attending Provide r Active Team Status: Active Member Role Status Dates Dr. Marcelo Mccullough MD Primary Care Provider Active Dr. Khari Lindsay DO Emergency Provider Active Dr. Mariana Rich DO Admit Provider, Attending Provide r, Other Provider Active Team Status: Active Member Role Status Dates Dr. Marcelo Mccullough MD Primary Care Provider Active Dr. Khari Lindsay DO Emergency Provider Active Dr. Mariana Rich DO Admit Provider, Other Provider Ac tive Dr. Leah Marie MD Other Provider Active Dr. Jaime Nuñez MD Attending Provider, Other Provid er Active Team Status: Inactive Member Role Status Dates Dr. Marcelo Mccullough MD Primary Care Provider Active Dr. Khari Lindsay DO Emergency Provider Active Dr. Mariana Rich DO Admit Provider, Other Provider Ac tive Dr. Leah Marie MD Other Provider Active Dr. Jaime Nuñez MD Attending Provider Active Team Status: Active Member Role Status Dates Dr. Marcelo Mccullough MD Primary Care Provider Active Dr. Leah Marie MD Attending Provider, Referring Pr ovider Active Team Status: Inactive Member Role Status Dates Dr. Marcelo Mccullough MD Primary Care Provider Active Dr. Eloy Lane DO Attending Provider, Emergency P maria teresa Active Team Status: Inactive Member Role Status Dates Dr. Marcelo Mccullough MD Primary Care Provider Active Dr. Tyron Sosa MD Emergency Provider Active Team Status: Inactive Member Role Status Dates Dr. Marcelo Mccullough MD Primary Care Provider Active Amado Anderson MD Emergency Provider Active Team Status: Inactive Member Role Status Dates Dr. Marcelo Mccullough MD Primary Care Provider Active Dr. Tyorn Sosa MD Attending Provider, Emergency Pr ovider Active Team Status: Inactive Member Role Status Dates Dr. Marcelo Mccullough MD Primary Care Provider Active Amado Anderson MD Attending Provider, Emergency Provid er Active Team Status: Inactive Member Role Status Dates Dr. Marcelo Mccullough MD Primary Care Provider Active Dr. Ady Rothman DO Referring Provider, Emergency Provider Active Team Status: Active Member Role Status Dates Dr. Marcelo Mccullough MD Primary Care Provider Active Dr. Ady Rothman DO Attending Provider, Referring Provider Active Team Status: Active Member Role Status Dates Dr. Marcelo Mccullough MD Primary Care Provider Active Dr. Tyson Miller MD Attending Provider Active Dr. Ady Rothman DO Referring Provider Active Team Status: Inactive Member Role Status Dates Dr. Marcelo Mccullough MD Primary Care Provider Active Dr. Ady Rothman DO Attending Provid er, Referring Provider, Emergency Provider Active Team Status: Inactive Member Role Status Dates Dr. Marcelo Mccullough MD Primary Care Provider Active Dr. 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 Marcelo Mccullough MD Primary Care Provider Active Team Status: Inactive Member Role Status Dates Dr. Marcelo Mccullough MD Primary Care Provider Active Start: March 17, 2024 End: March 17, 2024 Dr. Marcelo Mccullough MD Referring Provider Active Start: March 17, 2024 End: March 17, 2024 Dee Ku REPAIR DEPARTMENT SUPERVISOR, REPAIR DEPARTMENT SUPERVISOR-C Attending Provider Active S tart: March 17, 2024 End: March 17, 2024 Team Status: Inactive Member Role Status Dates Dr. Marcelo Mccullough MD Primary Care Provider Active Start: March 21, 2024 End: March 21, 2024 Dr. Marcelo Mccullough MD Attending Provider Active Start: March 21, 2024 End: March 21, 2024 Team Status: Inactive Member Role Status Dates Dr. Marcelo Mccullough MD Primary Care Provider Active Start: May 03, 2024 End: May 03, 2024 Dr. Marcelo Mccullough MD Attending Provider Active Start: May 03, 2024 End: May 03, 2024 Dr. Marcelo Mccullough MD Referring Provider Active Start: May 03, 2024 End: May 03, 2024 Team Status: Inactive Member Role Status Dates Dr. Marcelo Mccullough MD Primary Care Provider Active Start: May 15, 2024 End: May 15, 2024 Dr. Marcelo Mccullough MD Referring Provider Active Start: May 15, 2024 End: May 15, 2024 Dee Ku REPAIR DEPARTMENT SUPERVISOR, REPAIR DEPARTMENT SUPERVISOR-C Attending Provider Active S tart: May 15, 2024 End: May 15, 2024 Team Status: Inactive Member Role Status Dates Dr. Marcelo Mccullough MD Primary Care Provider Active Start: June 26, 2024 End: June 26, 2024 Dr. Marcelo Mccullough MD Attending Provider Active Start: June 26, 2024 End: June 26, 2024 Dr. Marcelo Mccullough MD Referring Provider Active Start: June 26, 2024 End: June 26, 2024 Team Status: Active Member Role Status Dates Dr. Marcelo Mccullough MD Primary Care Provider Active Start: June 26, 2024 Dr. Eloy Brito MD Attending Provider Active S tart: June 26, 2024 Team Status: Active Member Role Status Dates Dr. Marcelo Mccullough MD Primary Care Provider Active Start: June 26, 2024 Dr. Marcelo Mccullough MD Referring Provider Active Start: June 26, 2024 Dr. Eloy Brito MD Attending Provider Active S tart: June 26, 2024 Team Status: Inactive Member Role Status Dates Dr. Marcelo Mccullough MD Primary Care Provider Active Start: July 06, 2024 End: July 06, 2024 Amado Anderson MD Referring Provider Active Star t: July 06, 2024 End: July 06, 2024 Amado Anderson MD Emergency Provider Active Star t: July 06, 2024 End: July 06, 2024 Team Status: Inactive Member Role Status Dates Dr. Marcelo Mccullough MD Primary Care Provider Active Start: July 06, 2024 End: July 06, 2024 Amado Anderson MD Attending Provider Active Star t: July 06, 2024 End: July 06, 2024 Amado Anderson MD Referring Provider Active Star t: July 06, 2024 End: July 06, 2024 Amado Anderson MD Emergency Provider Active Star t: July 06, 2024 End: July 06, 2024 Team Status: Inactive Member Role Status Dates Dr. Marcelo Mccullough MD Primary Care Provider Active Start: July 19, 2024 End: July 19, 2024 Dr. Marcelo Mccullough MD Referring Provider Active Start: July 19, 2024 End: July 19, 2024 MIRA Ray Attending Provider Active Star t: July 19, 2024 End: July 19, 2024 Team Status: Inactive Member Role Status Dates Dr. Marcelo Mccullough MD Primary Care Provider Active Start: July 20, 2024 End: July 20, 2024 Dr. Marcelo Mccullough MD Referring Provider Active Start: July 20, 2024 End: July 20, 2024 Terrell MEYERS PA Attending Provider Active Sta rt: July 20, 2024 End: July 20, 2024 Team Status: Inactive Member Role Status Dates Dr. Marcelo Mccullough MD Primary Care Provider Active Start: August 03, 2024 End: August 03, 2024 Dr. Marcelo Mccullough MD Referring Provider Active Start: August 03, 2024 End: August 03, 2024 Dr. Tyson Miller MD Attending Provider Active S tart: August 03, 2024 End: August 03, 2024 Team Status: Inactive Member Role Status Dates Dr. Marcelo Mccullough MD Primary Care Provider Active Start: August 03, 2024 End: August 03, 2024 Dr. Marcelo Mccullough MD Attending Provider Active Start: August 03, 2024 End: August 03, 2024 Dr. Marcelo Mccullough MD Referring Provider Active Start: August 03, 2024 End: August 03, 2024 Team Status: Inactive Member Role Status Dates Dr. Marcelo Mccullough MD Primary Care Provider Active Start: August 31, 2024 End: August 31, 2024 Dr. Marcelo Mccullough MD Attending Provider Active Start: August 31, 2024 End: August 31, 2024 Dr. Marcelo Mccullough MD Referring Provider Active Start: August 31, 2024 End: August 31, 2024 Team Status: Active Member Role Status Dates Dr. Marcelo Mccullough MD Primary Care Provider Active Start: September 05, 2024 Dr. Marcelo Mccullough MD Attending Provider Active Start: September 05, 2024 Dr. Marcelo Mccullough MD Referring Provider Active Start: September 05, 2024 Team Status: Inactive Member Role Status Dates Dr. Marcelo Mccullough MD Primary Care Provider Active Start: September 05, 2024 End: September 05, 2024 Dr. Marcelo Mccullough MD Attending Provider Active Start: September 05, 2024 End: September 05, 2024 Dr. Marcelo Mccullough MD Referring Provider Active Start: September 05, 2024 End: September 05, 2024 Team Status: Active Member Role Status Dates Dr. Marcelo Mccullough MD Primary Care Provider Active Start: September 08, 2024 Dr. Marcelo Mccullough MD Attending Provider Active Start: September 08, 2024 Dr. Marcelo Mccullough MD Referring Provider Active Start: September 08, 2024 Team Status: Inactive Member Role Status Dates Dr. Marcelo Mccullough MD Primary Care Provider Active Start: September 08, 2024 End: September 08, 2024 Dr. Marcelo Mccullough MD Attending Provider Active Start: September 08, 2024 End: September 08, 2024 Dr. Marcelo Mccullough MD Referring Provider Active Start: September 08, 2024 End: September 08, 2024 Team Status: Inactive Member Role/Relationship Status Dates Dr. Marcelo Mccullough MD Primary Care Provider Active Start: June 26, 2024 End: June 26, 2024 Dr. Marcelo Mccullough MD Attending Provider Active Start: June 26, 2024 End: June 26, 2024 Dr. Marcelo Mccullough MD Referring Provider Active Start: June 26, 2024 End: June 26, 2024 Team Status: Active Member Role/Relationship Status Dates Dr. Marcelo Mccullough MD Primary Care Provider Active Start: June 26, 2024 Dr. Marcelo Mccullough MD Referring Provider Active Start: June 26, 2024 Dr. Eloy Brito MD Attending Provider Active S tart: June 26, 2024 Team Status: Inactive Member Role/Relationship Status Dates Dr. Marcelo Mccullough MD Primary Care Provider Active Start: July 06, 2024 End: July 06, 2024 Amado Anderson MD Attending Provider Active Star t: July 06, 2024 End: July 06, 2024 Amado Anderson MD Referring Provider Active Star t: July 06, 2024 End: July 06, 2024 Amado Anderson MD Emergency Provider Active Star t: July 06, 2024 End: July 06, 2024 Team Status: Inactive Member Role/Relationship Status Dates Dr. Marcelo Mccullough MD Primary Care Provider Active Start: July 19, 2024 End: July 19, 2024 Dr. Marcelo Mccullough MD Referring Provider Active Start: July 19, 2024 End: July 19, 2024 MIRA Ray Attending Provider Active Star t: July 19, 2024 End: July 19, 2024 Team Status: Inactive Member Role/Relationship Status Dates Dr. Marcelo Mccullough MD Primary Care Provider Active Start: July 20, 2024 End: July 20, 2024 Dr. Marcelo Mccullough MD Referring Provider Active Start: July 20, 2024 End: July 20, 2024 Terrell MEYERS PA Attending Provider Active Sta rt: July 20, 2024 End: July 20, 2024 Team Status: Inactive Member Role/Relationship Status Dates Dr. Marcelo Mccullough MD Primary Care Provider Active Start: August 03, 2024 End: August 03, 2024 Dr. Marcelo Mccullough MD Referring Provider Active Start: August 03, 2024 End: August 03, 2024 Dr. Tyson Miller MD Attending Provider Active S tart: August 03, 2024 End: August 03, 2024 Team Status: Inactive Member Role/Relationship Status Dates Dr. Marcelo Mccullough MD Primary Care Provider Active Start: August 03, 2024 End: August 03, 2024 Dr. Marcelo Mccullough MD Attending Provider Active Start: August 03, 2024 End: August 03, 2024 Dr. Marcelo Mccullough MD Referring Provider Active Start: August 03, 2024 End: August 03, 2024 Team Status: Inactive Member Role/Relationship Status Dates Dr. Marcelo Mccullough MD Primary Care Provider Active Start: August 31, 2024 End: August 31, 2024 Dr. Marcelo Mccullough MD Attending Provider Active Start: August 31, 2024 End: August 31, 2024 Dr. Marcelo Mccullough MD Referring Provider Active Start: August 31, 2024 End: August 31, 2024 Team Status: Inactive Member Role/Relationship Status Dates Dr. Marcelo Mccullough MD Primary Care Provider Active Start: September 05, 2024 End: September 05, 2024 Dr. Marcelo Mccullough MD Attending Provider Active Start: September 05, 2024 End: September 05, 2024 Dr. Marcelo Mccullough MD Referring Provider Active Start: September 05, 2024 End: September 05, 2024 Team Status: Inactive Member Role/Relationship Status Dates Dr. Marcelo Mccullough MD Primary Care Provider Active Start: September 08, 2024 End: September 08, 2024 Dr. Marcelo Mccullough MD Attending Provider Active Start: September 08, 2024 End: September 08, 2024 Dr. Marcelo Mccullough MD Referring Provider Active Start: September 08, 2024 End: September 08, 2024 Team Status: Inactive Member Role/Relationship Status Dates Dr. Marcelo Mccullough MD Referring Provider Active Start: October 18, 2024 End: October 18, 2024 MIRA Ray Attending Provider Active Star t: October 18, 2024 End: October 18, 2024 Team Status: Active Member Role/Relationship Status Dates Dr. Marcelo Mccullough MD Primary Care Provider Active Team Status: Inactive Member Role/Relationship Status Dates Dr. Marcelo Mccullough MD Primary Care Provider Active Start: July 06, 2024 End: July 06, 2024 Amado Anderson MD Attending Provider Active Star t: July 06, 2024 End: July 06, 2024 Amado Anderson MD Referring Provider Active Star t: July 06, 2024 End: July 06, 2024 Amado Anderson MD Emergency Provider Active Star t: July 06, 2024 End: July 06, 2024 Team Status: Inactive Member Role/Relationship Status Dates Dr. Marcelo Mccullough MD Primary Care Provider Active Start: July 19, 2024 End: July 19, 2024 Dr. Marcelo Mccullough MD Referring Provider Active Start: July 19, 2024 End: July 19, 2024 MIRA Ray Attending Provider Active Star t: July 19, 2024 End: July 19, 2024 Team Status: Inactive Member Role/Relationship Status Dates Dr. Marcelo Mccullough MD Primary Care Provider Active Start: July 20, 2024 End: July 20, 2024 Dr. Marcelo Mccullough MD Referring Provider Active Start: July 20, 2024 End: July 20, 2024 MIRA Lara Attending Provider Active Sta rt: July 20, 2024 End: July 20, 2024 Team Status: Inactive Member Role/Relationship Status Dates Dr. Marcelo Mccullough MD Primary Care Provider Active Start: August 03, 2024 End: August 03, 2024 Dr. Marcelo Mccullough MD Referring Provider Active Start: August 03, 2024 End: August 03, 2024 Dr. Tyson Miller MD Attending Provider Active S tart: August 03, 2024 End: August 03, 2024 Team Status: Inactive Member Role/Relationship Status Dates Dr. Marcelo Mccullough MD Primary Care Provider Active Start: August 03, 2024 End: August 03, 2024 Dr. Marcelo Mccullough MD Attending Provider Active Start: August 03, 2024 End: August 03, 2024 Dr. Marcelo Mccullough MD Referring Provider Active Start: August 03, 2024 End: August 03, 2024 Team Status: Inactive Member Role/Relationship Status Dates Dr. Marcelo Mccullough MD Primary Care Provider Active Start: August 31, 2024 End: August 31, 2024 Dr. Marcelo Mccullough MD Attending Provider Active Start: August 31, 2024 End: August 31, 2024 Dr. Marcelo Mccullough MD Referring Provider Active Start: August 31, 2024 End: August 31, 2024 Team Status: Inactive Member Role/Relationship Status Dates Dr. Marcelo Mccullough MD Primary Care Provider Active Start: September 05, 2024 End: September 05, 2024 Dr. Marcelo Mccullough MD Attending Provider Active Start: September 05, 2024 End: September 05, 2024 Dr. Marcelo Mccullough MD Referring Provider Active Start: September 05, 2024 End: September 05, 2024 Team Status: Inactive Member Role/Relationship Status Dates Dr. Marcelo Mccullough MD Primary Care Provider Active Start: September 08, 2024 End: September 08, 2024 Dr. Marcelo Mccullough MD Attending Provider Active Start: September 08, 2024 End: September 08, 2024 Dr. Marcelo Mccullough MD Referring Provider Active Start: September 08, 2024 End: September 08, 2024 Team Status: Inactive Member Role/Relationship Status Dates Dr. Marcelo Mccullough MD Referring Provider Active Start: October 18, 2024 End: October 18, 2024 MIRA Ray Attending Provider Active Star t: October 18, 2024 End: October 18, 2024 Team Status: Inactive Member Role/Relationship Status Dates Dr. Marcelo Mccullough MD Primary Care Provider Active Start: October 18, 2024 End: October 18, 2024 Dr. Marcelo Mccullough MD Attending Provider Active Start: October 18, 2024 End: October 18, 2024 Dr. Marcelo Mccullough MD Referring Provider Active Start: October 18, 2024 End: October 18, 2024 (unrecognized sect ion and content) No Status Records FoundNo Status Records FoundNo Status Records Found INFORMATION SOURCE (unrecogn ized section and content) DATE CREATED AUTHOR 11/16/2023 [facility] ([place]) DATE CREATED AUTHOR AUTHOR'S ORGANIZ ATION 04/21/2024 [facility] DATE CREATED AUTHOR AUTHOR'S ORGANIZ ATION 10/29/2024 [facility] Source Comments (unrecognize d section and content) In the event this informatio n is protected by the Federal Confidentiality of Alcohol and Drug Abuse Patient Records regulations: The Federal rules restrict any use of the information to criminally investigate or prosecute any alcohol or drug abuse patient.[facility] FOR RECORDS PERTAINING TO PATIENTS WHO ARE [...] BE BASED ON THE PRIMARY CLINICAL RECORDS. [employer] provides no warranty or guarantee of the accuracy or completeness of information in this document.
[2025-02-17 09:02] VITALS: BP 138/92; PULSE 84; RESP 16; TEMP 36.8; O2SAT 97
== END 2025-02-17 09:03 | disposition home or self-care (01) ==
PROVIDERS: Emergency Provider Emergency Medicine; PCP Family Medicine Geriatric Medicine; Visit Provider Emergency Medicine
DX: M54.12 Radiculopathy, cervical region (principal); I25.10 Atherosclerotic heart disease of native coronary artery without angina pectoris; I10 Essential (primary) hypertension; Z87.891 Personal history of nicotine dependence; E78.5 Hyperlipidemia, unspecified; Z86.718 Personal history of other venous thrombosis and embolism; Z95.5 Presence of coronary angioplasty implant and graft; K21.9 Gastro-esophageal reflux disease without esophagitis; I25.2 Old myocardial infarction; D64.9 Anemia, unspecified; Z79.01 Long term (current) use of anticoagulants
CPT/HCPCS: 72125; 99282